=== PATIENT | female | born 1970 | race Caucasian/White ===

== ENCOUNTER 2022-12-05 11:40 | Outpatient (OUT) | payer MEDICARE, MEDICAID, SELFPAY ==
[2022-12-05 12:06] LABS: Basophils Absolute Auto 0.1 10^3/uL (0.0-0.1); Basophils Percent Auto 0.7 % (0.2-2.0); Eosinophils Absolute Auto 0.3 10^3/uL (0.0-0.7); Eosinophils Percent Auto 3.3 % (0.9-7.0); Hematocrit 36.8 % (36.0-48.0); Hemoglobin 11.2 g/dL (12.0-16.0); Immature Granulocytes Abs Auto 0.02 10^3/uL (0.00-0.03); Immature Granulocytes Pct Auto 0.2 % (0.0-0.5); Lymphocytes Absolute Auto 2.8 10^3/uL (1.2-3.8); Lymphocytes Percent Auto 32.6 % (20.5-60.0); Mean Corpuscular HGB Conc 30.4 g/dL (29.9-35.2); Mean Corpuscular Hemoglobin 27.5 pg (26.7-34.0); Mean Corpuscular Volume 90.4 fL (81.0-99.0); Mean Platelet Volume 9.4 fL (9.5-13.5); Monocytes Absolute Auto 0.5 10^3/uL (0.3-0.8); Monocytes Percent Auto 5.3 % (1.7-12.0); Neutrophils Percent Auto 57.9 % (43.0-75.0); Platelet Count 268 10^3/uL (150-450); Red Blood Count 4.07 10^6/uL (4.20-5.40); Red Cell Distribution Width 14.7 % (11.0-15.0); White Blood Count 8.7 10^3/uL (4.0-11.0)
[2022-12-05 13:43] LABS: Alanine Aminotransferase 19 U/L (14-59); Albumin Globulin Ratio 0.8; Albumin Level 3.5 g/dL (3.4-5.0); Alkaline Phosphatase 120 U/L (46-116); Anion Gap 14.8; Aspartate Amino Transferase 16 U/L (15-37); Bilirubin Total 0.3 mg/dL (0.2-1.0); Calcium 9.1 mg/dL (8.5-10.1); Carbon Dioxide 26.5 mmol/L (21.0-32.0); Chloride 102 mmol/L (98-107); Chol HDL Ratio 9.3; Cholesterol 130 mg/dL (<=200); Estimated GFR (African America >60 (>=60); Estimated GFR (Non-African Ame 58 (>=60); Globulin 4.5 g/dL; Glucose 107 mg/dL (74-106); HDL Cholesterol 14 mg/dL (40-60); Potassium 3.3 mmol/L (3.5-5.1); Sodium 140 mmol/L (136-145); Triglycerides 213 mg/dL (<=150); VLDL CHOLESTEROL 42.6 mg/dL
== END 2022-12-05 11:41 | disposition home or self-care (01) ==
LOC: LAB 11:50
PROVIDERS: Visit Provider Nurse Practitioner Acute Care
DX: I10 Essential (primary) hypertension (principal); R06.09 Other forms of dyspnea; E78.2 Mixed hyperlipidemia
CPT/HCPCS: 36415; 80053; 80061; 83880; 85025

== ENCOUNTER 2023-02-15 13:59 | Outpatient (OUT) | payer MEDICARE, SELFPAY ==
--- NOTE | 2023-02-15 14:45 | CA_ITS ---
Patient Name: ESTELA BELL MR#: [id number] : 1970 Exam Date: 02/15/2023 Ordering Doctor: MRS. AMINATA ORTIZ NP ECHOCARDIOGRAM REPORT PROCEDURE: CA ECHO DOPPLER COMPLETE INDICATIONS: Dyspnea, ascending aorta aneurysm, diabetes COMPARISON: None. DESCRIPTION: COMPLETE ECHOCARDIOGRAM Real-time transthoracic echocardiography with 2D, M-mode, spectral and color flow Doppler performed. QUALITY: Technically difficult due to patients condition. 67 , 220#, BSA 2.11 m2 LEFT VENTRICLE: Normal chamber size. Normal left ventricular wall thickness. LV EF: Global left ventricular systolic function is normal; visually estimated ejection fraction is 55 to 60%. Unable to assess regional wall motion abnormalities with accuracy. Consider contrast of the for better delineation of endocardial borders. DIASTOLIC: Normal diastolic function. ATRIAL SEPTUM: Inadequately seen. LEFT ATRIUM: Normal chamber size. RIGHT ATRIUM: Normal chamber size. RIGHT VENTRICLE: Poorly seen. Normal chamber size. Right ventricular systolic function appears reduced. TRICUSPID VALVE: Normal mobility and thickness. No stenosis with trivial regurgitation. No evidence of pulmonary hypertension. RVSP 23 mmHg MITRAL VALVE: Normal mobility and thickness. No evidence of mitral valve stenosis. There is no mitral annular calcification. Trivial mitral regurgitation. AORTIC VALVE: Normal trileaflet appearance. No visible sclerosis. Normal leaflet mobility. No evidence of aortic valve stenosis. No aortic regurgitation. AORTIC ROOT: Ascending aorta is moderately dilated (4.4 cm), unchanged from prior echocardiogram performed 05/27/2020 PULMONIC VALVE: Normal thickness and mobility. No stenosis. No regurgitation. PERICARDIUM: No evidence of pericardial effusion. IVC: Collapses with inspirations. IVC is normal in size. CONCLUSION: 1. Global left ventricular systolic function is normal; visually estimated ejection fraction is 55 to 60% 2. The right ventricle is poorly seen; appears normal in size with reduced systolic function 3. Normal diastolic function 4. Valves are poorly seen; no significant valvular abnormalities 5. The ascending aorta is moderately dilated measuring 4.4 cm Adult Echocardiography Procedure Report Left Ventricle LVEDD (3.7 - 5.6 cm): 3.70 cm LVESD (2.2 - 4.0 cm): 2.58 cm LVIVS thickness (0.6 - 1.2 cm): 0.87 cm LVPW thickness (0.5 - 1.0 cm): 1.00 cm e': 0.12 m/s E - e': 7.24 LVOT Max Gradient: 3.81 mm[Hg] LVOT Area (cm2): 0.98 m/s Peak Velocity (LVOT): 0.98 m/s Mean Velocity (LVOT): 0.64 m/s LVOT Diameter 2.15 cm Left Ventricular Ejection Fraction: Left Atrium LA Volume Index (2D A2C): 18.39 ml/m2 Left Atrium Systolic Dimension: 4.01 cm Mitral Valve MV E to A Ratio: 1.21 MV Max Gradient: MV Mean Gradient: Mitral Valve A-Wave Peak Velocity: 0.70 m/s Mitral Valve E-Wave Peak Velocity: 0.85 m/s Cardiovascular Orifice Area: Right Ventricle RV Internal Diastolic Dimension: Aorta AO Root Diam: 3.09 cm Ascending Ao Diam: 2.79 cm Aortic Valve AoV Area (Peak Gt): 3.23 cm2, 3.23 cm2 AoV Area (VTI): 3.03 cm2, 3.03 cm2 Deceleration Upshur: Pressure Half-Time: Peak Velocity(Antegrade Flow): 1.10 m/s Peak Gradient(Antegrade Flow): 4.84 mm[Hg] Mean Velocity(Antegrade Flow): 0.79 m/s Mean Gradient(Antegrade Flow): 2.77 mm[Hg] Velocity Time Integral: 25.35 cm Tricuspid Valve Peak Velocity (Regurgitant Flow): 2.22 m/s, 2.59 m/s Peak Velocity: Pulmonic Valve Mean Gradient: Mean Velocity: Peak Velocity: 0.90 m/s Peak Gradient: 3.41 mm[Hg], 3.05 mm[Hg] Right Atrium Right Atrium Systolic Pressure: Dictated by: Crispin Melchor M.D. on 02/17/2023 at 10:20 Approved by: Crispin Melchor M.D. on 02/17/2023 at 10:25
== END 2023-02-15 14:00 | disposition home or self-care (01) ==
LOC: CARD 13:59
PROVIDERS: Visit Provider Nurse Practitioner Acute Care
DX: I71.21 Aneurysm of the ascending aorta, without rupture (principal); R06.09 Other forms of dyspnea
CPT/HCPCS: 93306

== ENCOUNTER 2024-10-30 09:54 | Outpatient (OUT) | payer MEDICARE, SELFPAY ==
--- OUTSIDE RECORDS SUMMARY | 2018-04-18 05:07 | XMS_ITS | Continuity of Care Document ---
Author Organization [facility] Address [address] [place] [address] Phone Care Team Providers Care Civil Drafter Name Role Phone Francisco Pineda DMD Unavailable Unav ailable Allergies, Adverse Reactions, Alerts Substance Reaction Status Criticality Penicillins Active No Information CEPHALEXIN MONOHYDRATE Active No In formation heparin Active No Information Medications Medication Instructions Dosage Effective Dates (start - stop) Status Comments Arnuity Ellipta 50 mcg/actuation powder for inhalation - Active Keppra XR 500 mg tablet,extended release take 2 tablet by oral route every day 1000 MG - Active Effexor XR 37.5 mg capsule,extended release take 1 capsule by oral route every day with food 37.5 MG - Active Lyrica 150 mg capsule take 1 capsule by oral route 2 times every day 150 MG - Active Eliquis 2.5 mg tablet take 1 tablet by oral route 2 times every day 2.5 MG - Active buspirone 10 mg tablet take 1 tablet by oral route 2 times every day 10 MG - Active aspirin 81 mg tablet,delayed release take 1 tablet by oral route every day 81 MG - Active Lipitor 40 mg tablet take 1 tablet by or al route every day 40 MG - Active metoprolol tartrate 25 mg tablet take 1 tablet by oral route 2 times every day 25 MG - Active metformin ER 500 mg tablet,extended release 24 hr take 2 tablet by oral route every day with the evening meal 1000 MG - Active Procedures Procedure Date Panoramic Film Oral Hygiene Instruction Comp Oral Eval New/estab Patient 2017 Initial Oral Exam Advance Directives Directive Yes / No Effective Date File Name No Information Encounters Encounter Description Practice Location Reason(s) For Visit Diagnoses Date Provider Providers Copied on Encounter [facility], [address] [place] [address], [id number], [place] tel:[phone] Dental Clinic No Information 9 Miriam DMD [place]. [address] [place], [address], [place]. tel:[phone] [facility], [address], [place], [id number], [place] tel:[phone] Dental Clinic dental new (chief complaint) Encounter for screening for dental disorders 8 Miriam DMD Sheel[place]. [address] [place] [address], [address], [place]. tel:[phone] Family History Family Member Type Diagnosis Age At Onset Father Problem (finding) hypertension Father Problem (finding) Alive and well Mother Problem (finding) Father Problem (finding) Diabetes mellitus Father Problem (finding) cholesterol Payers Payer name Insurance type Covered constitution party ID Orquidea schmidt(s) Janes [facility] 09 [id number] Social History Type Description Quantity Date Captured Comments Sex Female Smoking Status No Information Sexual Orientation Straight or heterosexual Oct Gender Identity Female Chief Complaint And Reason For Visit No Information Reason For Referral Reason For Referral No Information History Of Present Illness Encounter Date Complaint History Of Prese nt Illness dental new dental new estab [facility] care Functional Status Date Functional Assessmen t No Information Instructions Date Instruction Additional Infor mation No Information Assessments Type Assessment Date No Information Patient Care Teams Name Effective Dates (start - stop) Status Members No Information
--- NOTE | 2024-10-30 09:56 | CA_ITS ---
Patient Name: ESTELA BELL MR#: [id number] : 1970 Exam Date: 10/30/2024 Ordering Doctor: LAYNE SANTANA CNP ECHOCARDIOGRAM REPORT PROCEDURE: CA ECHO DOPPLER COMPLETE INDICATIONS: Aneurysm of ascending aorta COMPARISON: None. DESCRIPTION: COMPLETE ECHOCARDIOGRAM Real-time transthoracic echocardiography with 2D, M-mode, spectral and color flow Doppler performed. QUALITY: Technical quality was good. LEFT VENTRICLE: Normal chamber size. Normal left ventricular wall thickness. LV EF: Global left ventricular systolic function is normal. Calculated left ventricular ejection fraction is 65%. No significant wall motion abnormalities. DIASTOLIC: Normal diastolic function. ATRIAL SEPTUM: Inadequately seen. LEFT ATRIUM: Normal chamber size. RIGHT ATRIUM: Mild dilatation. RIGHT VENTRICLE: Normal chamber size. Normal right ventricular systolic function. TRICUSPID VALVE: Normal mobility and thickness. No stenosis with mild regurgitation. No evidence of pulmonary hypertension. RVSP 33mmHg. MITRAL VALVE: Normal mobility and thickness. No evidence of mitral valve stenosis. Mild mitral annular calcification. Trivial mitral regurgitation. AORTIC VALVE: Normal trileaflet appearance. No visible sclerosis. Normal leaflet mobility. No evidence of aortic valve stenosis. No aortic regurgitation. AORTIC ROOT: Normal diameter and appearance. Measuring 3. 5cm.The ascending aorta is dilated measuring 5.0 x 4.3 cm in short axis and 4.4 cm in long axis. PULMONIC VALVE: Normal thickness and mobility. No stenosis. Trivial regurgitation. PERICARDIUM: No evidence of pericardial effusion. IVC: Collapses with inspiration. Mild dilatation measuring 2.2cm CONCLUSION: 1. Global left ventricular systolic function is normal; visually estimated ejection fraction is 55 to 60% 2. Normal right ventricular size and systolic function 3. Normal diastolic function 4. Mild right atrial dilatation 5. Mild tricuspid regurgitation 6. The ascending aorta is mild to moderately dilated measuring 5.0 x 4.3 cm in short axis and 4.4 cm in long axis; recommend additional imaging such as CTA or MR a for further evaluation Adult Echocardiography Procedure Report Left Ventricle LVEDD (3.7 - 5.6 cm): 4.62 cm LVESD (2.2 - 4.0 cm): 2.82 cm LVIVS thickness (0.6 - 1.2 cm): 1.02 cm LVPW thickness (0.5 - 1.0 cm): 0.93 cm e': 0.10 m/s E - e': 10.90 LVOT Max Gradient: 4.71 mm[Hg] LVOT Area (cm2): 1.09 m/s Peak Velocity (LVOT): 1.09 m/s Mean Velocity (LVOT): 0.68 m/s LVOT Diameter 2.01 cm Left Ventricular Ejection Fraction: 65.39 % Left Atrium LA Volume Index (2D A2C): 26.84 ml/m2 Left Atrium Systolic Dimension: 3.42 cm Mitral Valve MV E to A Ratio: 1.61, 1.56 Mitral Valve A-Wave Peak Velocity: 0.72 m/s Mitral Valve E-Wave Peak Velocity: 1.14 m/s Right Ventricle RV Internal Diastolic Dimension: 3.26 cm Aorta AO Root Diam: 3.33 cm Ascending Ao Diam: 3.99 cm Aortic Valve AoV Area (Peak Gt): 2.86 cm2, 2.86 cm2 AoV Area (VTI): 2.88 cm2, 2.88 cm2 Peak Velocity(Antegrade Flow): 1.21 m/s Peak Gradient(Antegrade Flow): 5.85 mm[Hg] Mean Velocity(Antegrade Flow): 0.76 m/s Mean Gradient(Antegrade Flow): 2.81 mm[Hg] Velocity Time Integral: 29.81 cm Tricuspid Valve Peak Velocity (Regurgitant Flow): 2.11 m/s, 2.32 m/s, 2.51 m/s Pulmonic Valve Mean Gradient: 1.48 mm[Hg], 1.59 mm[Hg] Mean Velocity: 0.57 m/s, 0.58 m/s Peak Velocity: 0.86 m/s Peak Gradient: 2.81 mm[Hg], 3.09 mm[Hg] Right Atrium Right Atrium Systolic Pressure: 40.50 ml, 40.50 ml Dictated by: Crispin Melchor M.D. on 10/30/2024 at 11:47 Approved by: Crispin Melchor M.D. on 10/30/2024 at 11:51
--- OUTSIDE RECORDS SUMMARY | 2024-10-30 09:56 | XMS_ITS | Clinical Summary ---
Author Organization [facility] Address [address] [place] [address] Phone Care Team Providers Care Maintenance Aide Name Role Phone Unavailable Primary Care Provider Unavailabl e Social History Tobacco Use Types Packs/Day Years Used Date Smoking Tobacco: Never Assessed Comments Unknown Sex and Gender Information Value Date Recorded Sex Assigned at Not on file Legal Sex Female 5:24 PM EST Gender Identity Not on file Sexual Orientation Not on file Plan of Treatment Not on file
--- OUTSIDE RECORDS SUMMARY | 2024-10-30 09:57 | XMS_ITS | Encounter Summary ---
Author Organization [employer] [facility] [employer] Address [id number] [address] [place] [address] Care Team Providers Care Electrotyper Helper Name Role Phone Lewis Adamson MD Primary Care Provider [phone] Reason for Visit * Reason Comments Med Refill Encounter Details Date Type Department Care Team (Late st Contact Info) Description 04/01/2019 Refill [facility] [address] [place] [address] [place] [address] Carol Wetzel, RN [employer] P[employer]CHER [address] [place], [place] [id number] Mixed hyperlipidemia; Neuropathy Social History Tobacco Use Types Packs/Day Years Used Date Smoking Tobacco: Never Smokeless Tobacco: Never Alcohol Use Standard Drinks/Week Comments No 0 (1 standard drink = 0.6 oz pur e alcohol) PHQ-2 Answer Date Recorded PHQ-2 Score 14 11/27/2018 Childcare Answer Date Recorded Childcare Unknown 07/30/2018 Employment Answer Date Recorded Employment Unknown 07/30/2018 Comments No Sex and Gender Information Value Date Recorded Sex Assigned at Not on file Legal Sex Female 11:51 AM EDT Gender Identity Not on file Sexual Orientation Not on file Occupation Industry Job Start Date Job End Date disability Not on file Not on file Not on file documented as of this encounter Plan of Treatment Upcoming Encounters Date Type Department Care Team (Late st Contact Info) Description 12/11/2024 9:45 AM EDT Office Visit [facility]/Lewis Adamson MD [address] [address] Lewis Adamson MD [address] [address] documented as of this encounter Visit Diagnoses Diagnosis Mixed hyperlipidemia Neuropathy Mononeuritis of unspecified site documented in this encounter Additional Health Concerns Infection Onset Date Last Indicated Resolved Time MRSA Comment:Abdomen sterile field culture 09/01/11 Infection converted via [employer]zuna from [employer] system information 09/06/2011 09/06/201109/28 11:19 PM EDT Assessment Noted Time PHQ-9 Depression Total Score: 14 019 11:00 AM EDT A Body Mass Index follow-up plan has been documented for the patient 11/28/2017 11:01 AM EDT documented as of this encounter Care Teams Electrotyper Helper Relationship Specialty Start Date End Date Lewis Adamson MD [address] [address] PCP - General Internal Medicine 01/04/22 documented as of this encounter
--- OUTSIDE RECORDS SUMMARY | 2024-10-30 09:57 | XMS_ITS | Encounter Summary ---
Author Organization [employer] [facility] Address [id number] [address] [place] [address] Care Team Providers Care Passementerie Worker Name Role Phone Lewis Adamson MD Primary Care Provider [phone] Reason for Visit * Reason Comments Med Refill Encounter Details Date Type Department Care Team (Late st Contact Info) Description 02/04/2020 Refill [facility]/Lewis Adamson MD [address] [place] [phone] Usman Hannon, PA-C [address] [place] [address] Allergic rhinitis Social History Tobacco Use Types Packs/Day Years [...] [facility]/Lewis Adamson MD [address] [address] Lewis Adamson MD [address] [address] documented as of this encounter Visit Diagnoses Diagnosis Allergic rhinitis documented in this encounter Additional Health Concerns Infection Onset Date Last Indicated Resolved Time MRSA Comment:Abdomen sterile field culture 09/01/11 Infection converted via [employer] utility from [employer] system information 09/06/2011 09/06/201109/28 11:19 PM EDT Assessment Noted Time PHQ-9 Depression Total Score: 14 019 11:00 AM EDT A Body Mass Index follow-up plan has been documented for the patient 11/28/2017 11:01 AM EDT documented as of this encounter Care Teams Passementerie Worker Relationship Specialty Start Date End Date Lewis Adamson MD [address] [address] PCP - General Internal Medicine 01/04/22 documented as of this encounter
--- OUTSIDE RECORDS SUMMARY | 2024-10-30 09:57 | XMS_ITS | Encounter Summary ---
Author Organization [facility] Address [address] [place] [address] Care Team Providers Care Manual Qa Tester Name Role Phone ParvezUsman Virginia MCKEON Primary Care Provider [phone] Christy Moreland MD Unavailable [phone] Feng Jimenez DO Unavailable [phone] Laxmi Gunter MD Unavailable Source Comments In the event this information is protected by the Federal Confidentiality of Alcohol and Drug AbusePatient Records regulations: The Federal rules restrict any use of the information to criminally investigate or prosecute any alcohol or drug abuse patient.[facility] Encounter Details Date Type Department Care Team (Late st Contact Info) Description 04/25/2024 Patient [facility] -[address] [place] [phone] Gianna Badillo RPh Medication refill(s) Past Due Social History Tobacco Use Types Packs/Day Years Used Date Smoking Tobacco: Never Smokeless Tobacco: Never Comments:Boyfriend smokes Alcohol Use Standard Drinks/Week Comments No 0 (1 standard drink = 0.6 oz pur e alcohol) PHQ-2 Answer Date Recorded PHQ-2 score 6 11/15/2020 Area Deprivation Index Answer Date Rehan rded National Score (1-100), lower number is lower ri sk Not on file 02/02/2020 State Score (1-10), lower number is lower risk N ot on file 02/02/2020 Data from: https://www.neighborhoodatlas.medicine.[facility]/. Last address used for calculation Not on file 02/02/2020 Comments No Sex and Gender Information Value Date Recorded Sex Assigned at Female 02/02/2020 10:35 PM EST Legal Sex Female 8:26 AM EST Gender Identity Female 02/02/2020 10:35 PM EST Sexual Orientation Straight 02/02/2020 10 :35 PM EST documented as of this encounter Functional Status * Are you deaf or do you have serious difficulty hearing? Answer Date of Assessment Author No 11/08/2013 8:56 AM Luis Amador * Are you blind or do you have serious difficulty seeing, even when wearing glasses? Answer Date of Assessment Author Yes 11/08/2013 8:56 AM Luis Amador iscorey * Do you have serious difficulty walking or climbing stairs? Answer Date of Assessment Author Yes 11/08/2013 8:56 AM Luis Amador * Do you have difficulty dressing or bathing? Answer Date of Assessment Author No 11/08/2013 8:56 AM Luis Amador ise * Because of a physical, mental, or emotional condition, do you have difficulty doing errands alone such as visiting a doctor's office or shopping? Answer Date of Assessment Author No 11/08/2013 8:56 AM Luis Amador documented as of this encounter Mental Status * Because of a physical, mental, or emotional condition, do you have serious difficulty concentrating, remembering, or making decisions? Answer Entry Date Author No 11/08/2013 8:56 AM Luis Amador documented in this encounter Plan of Treatment Not on file documented as of this encounter Visit Diagnoses Not on filedocumented in this encounter Care Teams Manual Qa Tester Relationship Specialty Start Date End Date Usman Hannon PA-C PCP - General Internal Medicine 02/06/20 Christy Moreland MD [address] [place] [address] Cardiology 02/06/20 Feng Jimenez DO [address] [place] [address] Internal Medicine 02/06/20 Laxmi Gunter MD [address] [place] [address] Referring Gastroenterology 02/04/23 documented as of this encounter
--- OUTSIDE RECORDS SUMMARY | 2024-10-30 09:57 | XMS_ITS | Encounter Summary ---
Author Organization [facility] Address [address] [place] [address] Care Team Providers Care Line Builder Name Role Phone Usman Hannon PA-C Primary Care Provider [phone] Christy Moreland MD Unavailable [phone] Feng Jimenez DO Unavailable [phone] Laxmi Gunter MD Unavailable Source Comments In the event this information is protected by the Federal Confidentiality of Alcohol and Drug AbusePatient Records regulations: The Federal rules restrict any use of the information to criminally investigate or prosecute any alcohol or drug abuse patient.[facility] Encounter Details Date Type Department Care Team (Late st Contact Info) Description 03/04/2020 Patient Msg Pre Anesthesia [address] [place] [address] Piyush Beltrán PA-C [address] [place] [address] Pre op instructions Social History Tobacco Use Types Packs/Day Years Used Date Smoking Tobacco: Never Smokeless Tobacco: Never Comments:Boyfriend smokes Alcohol Use Standard Drinks/Week Comments No 0 (1 standard drink = 0.6 oz pur e alcohol) PHQ-2 Answer Date Recorded PHQ-2 score 0 12/31/2019 Area Deprivation Index Answer Date Rehan rded National Score (1-100), lower number is lower ri sk Not on file 02/02/2020 State Score (1-10), lower number is lower risk N ot on file 02/02/2020 Data from: https://www.neighborhoodatlas.medicine.[facility]/. Last address used for calculation Not on file 02/02/2020 Comments No Sex and Gender Information Value Date Recorded Sex Assigned at Female 02/02/2020 10:35 PM EST Legal Sex Female 8:26 AM EST Gender Identity Female 02/02/2020 10:35 PM EST Sexual Orientation Straight 02/02/2020 10 :35 PM EST COVID-19 Exposure Response Date Recorded In the last month, have you been in contact with someone who was confirmed or suspected to have Coronavirus / COVID-19? No / Unsure 02/17/2020 8:19 AM EST documented as of this encounter Functional Status * Are you deaf or do you have serious difficulty hearing? Answer Date of Assessment Author No 11/08/2013 8:56 AM Luis Amador * Are you blind or do you have serious difficulty seeing, even when wearing glasses? Answer Date of Assessment Author Yes 11/08/2013 8:56 AM Luis Amador * Do you have serious difficulty walking or climbing stairs? Answer Date of Assessment Author Yes 11/08/2013 8:56 AM Luis Amador * Do you have difficulty dressing or bathing? Answer Date of Assessment Author No 11/08/2013 8:56 AM Luis Amador * Because of a physical, mental, or [...] Diagnoses Not on filedocumented in this encounter Additional Health Concerns Infection Onset Date Last Indicated Resolved Time COVID-19 Confirmed 02/11/2020 02/11/2020 1 8:53 PM EST documented as of this encounter Care Teams Line Builder Relationship Specialty Start Date End Date Usman Hannon PA-C PCP - General Internal Medicine 02/06/20 Christy Moreland MD [address] [place] [address] Cardiology 02/06/20 Feng Jimenez DO [address] [place] [address] Internal Medicine 02/06/20 Laxmi Gunter MD [address] [place] [address] Referring Gastroenterology 02/04/23 documented as of this encounter
--- OUTSIDE RECORDS SUMMARY | 2024-10-30 09:57 | XMS_ITS | Encounter Summary ---
Author Organization [email or web address] s tem Address [id number] [address] [place] [address] Care Team Providers Care Bankruptcy Law Specialist Name Role Phone Lewis Adamson MD Primary Care Provider [phone] Encounter Details Date Type Department Care Team (Late st Contact Info) Description 04/17/2023 Orders Only [facility] Internal Medicine/Lewis Adamson MD [address] [place] [address] External, Scanning Provider Social History Tobacco Use Types Packs/Day Years Used Date Smoking Tobacco: Never Smokeless Tobacco: Never Alcohol Use Standard Drinks/Week Comments No 0 (1 standard drink = 0.6 oz pur e alcohol) Social Connection and Isolation Panel [NHANES] A nswer Date Recorded In a typical week, how many times do you talk on the phone with family, friends, or neighbors? Three times a week 04/07/2022 How often do you get togethe r with friends or relatives? Patient declined 04/07/2022 How often do you attend chur ch or confucianist services? Patient declined 04/07/2022 Do you belong to any clubs o r organizations such as yarsani groups, unions, fraternal or athletic groups, or school groups? No 04/07/2022 How often do you attend meet ings of the clubs or organizations you belong to? Patient declined 04/07/2022 Are you , , di vorced, , never , or living with a partner? Patient declined 04/07/2022 AUDIT-C Answer Date Recorded Q1: How often do you have a drink containing alcohol? Patient declined 04/07/2022 Q2: How many drinks containi ng alcohol do you have on a typical day when you are drinking? Patient does not drink Q3: How often do you have si x or more drinks on one occasion? Never 04/07/2022 Overall Financial Resource Strain (CARDIA) Answe r Date Recorded How hard is it for you to pa y for the very basics like food, housing, medical care, and heating? Somewhat hard 04/07/2022 PHQ-2 Answer Date Recorded Total Score 0 12/21/2022 [facility]at ional [facility] - Occupational Stress Questionnaire Answer Date Recorded Do you feel stress - tense, restless, nervous, or anxious, or unable to sleep at night because your mind is troubled all the time - these days? To some extent 04/07/2022 Exercise Vital Sign Answer Date Recorde d On average, how many days pe r week do you engage in moderate to strenuous exercise (like a brisk walk)? 7 days 04/07/2022 On average, how many minutes do you engage in exercise at this level? 60 min 04/07/2022 PRAPARE - Transportation Answer Date Re corded In the past 12 months, has l ack of transportation kept you from medical appointments or from getting medications? No 10/2022 In the past 12 months, has l ack of transportation kept you from meetings, work, or from getting things needed for daily living? No 04/07/2022 Housing Instability Answer Date Recorde d Are you worried or concerned that in the next two months you may not have stable housing that you own, rent or stay in as a part of a household? No 04/07/2022 Childcare Answer Date Recorded Do problems getting child ca re make it difficult for you to work or study? No 04/07/2022 Employment Answer Date Recorded Do you need help finding a [facility] career center and/or a training program? No 04/07/2022 Hunger Screening Answer Date Recorded Within the past 12 months we worried whether our food would run out before we got money to buy more. Never True 12/21/2022 Within the past 12 months th e food we bought just didn't last and we didn't have money to get more. Never True 12/21/2022 Purpose - Life Answer Date Recorded I have a purpose and direction in my life. Somew hat Agree 04/07/2022 Education Answer Date Recorded What is the highest level of school you have completed or the highest degree you have received? GED or equivalent 10/2022 Comments No Sex and Gender Information Value [...] [facility]/Lewis Adamson MD [address] [address] Lewis Adamson MD [address] [address] documented as of this encounter Procedures Procedure Name Priority Date/Time Associated Diagnosis Comments XR KNEE RT 3 VWS Routine 10/29/2022 12:4 3 PM EDT documented in this encounter Results * X-ray knee right 3 views (10/29/2022 12:43 PM EDT) Anatomical Region Laterality Modality Lower Extremities, MSK, Knee Right Com puted Radiography us Scanning Provider External IMG DIAGNOSTIC IMAGIN G ORDERABLES Final Result documented in this encounter Visit Diagnoses Not on filedocumented in this encounter Additional Health Concerns Assessment Noted Time PHQ-9 Depression Total Score: 0 12/22/19 23 10:31 AM EDT A Body Mass Index follow-up plan has been documented for the patient 12/21/2022 10:59 AM EDT documented as of this encounter Care Teams Bankruptcy Law Specialist Relationship Specialty Start Date End Date Lewis Adamson MD [address] [address] PCP - General Internal Medicine 01/04/22 documented as of this encounter
--- OUTSIDE RECORDS SUMMARY | 2024-10-30 09:57 | XMS_ITS | Encounter Summary ---
Author Organization [employer] [facility] tem Address [id number] [address] [place] [address] Care Team Providers Care Ems Driver Name Role Phone Lewis Adamson MD Primary Care Provider [phone] Reason for Visit * Reason Onset Date Comments Med Refill 12/25/2018 Encounter Details Date Type Department Care Team (Late st Contact Info) Description 12/25/2018 Refill [facility] [address] [place] [phone] Latisha Galeano, LUIS FERNANDO Social History Tobacco Use Types Packs/Day Years [...] [facility]/Lewis Adamson MD [address] [address] Lewis Adamson MD [address] [id number] documented as of this encounter Visit Diagnoses Not on filedocumented in this encounter Additional Health Concerns Infection Onset Date Last Indicated Resolved Time MRSA Comment:Abdomen sterile field culture 09/01/11 Infection converted via [employer] from [employer] system information 09/06/2011 09/06/201109/28 11:19 PM EDT Assessment Noted Time PHQ-9 Depression Total Score: 14 019 11:00 AM EDT A Body Mass Index follow-up plan has been documented for the patient 11/28/2017 11:01 AM EDT documented as of this encounter Care Teams Ems Driver Relationship Specialty Start Date End Date Lewis Adamson MD [address] [address] PCP - General Internal Medicine 01/04/22 documented as of this encounter
--- OUTSIDE RECORDS SUMMARY | 2024-10-30 09:57 | XMS_ITS | Encounter Summary ---
Author Organization [employer] s tem Address [id number] [address] [place] [address] Care Team Providers Care Automotive Airconditioning Mechanic Name Role Phone Lewis Adamson MD Primary Care Provider [phone] Encounter Details Date Type Department Care Team (Late st Contact Info) Description 2024 Orders Only [facility]/Lewis Adamson MD [address] [place] [address] Ref Prov, [place] [address] Social History Tobacco Use Types Packs/Day Years [...] often do you attend chur ch or taoist services? Patient declined 04/07/2022 Do you belong to any clubs o r organizations such as orthodox groups, unions, fraternal or athletic groups, or [...] like food, housing, medical care, and heating? Patient declined 06/09/2024 PHQ-2 Answer Date Recorded Total Score 16 01/02/2024 [facility] of Occupat ional Health - Occupational Stress [...] from medical appointments or from getting medications? Yes 05/28 In the past 12 months, has l ack of transportation kept you from meetings, work, or from getting things needed for daily living? No 06/09/2024 Housing Instability Answer Date Recorde d Are you worried or concerned that in the next two months you may not have stable housing that you own, rent or stay in as a part of a household? No 06/09/2024 Childcare Answer Date Recorded Do problems getting child ca re make it difficult for you to work or study? No 04/07/2022 Employment Answer Date Recorded Do you need help finding a [facility] career center and/or a training program? No 04/07/2022 Hunger Screening Answer Date Recorded Within the past 12 months we worried whether our food would run out before we got money to buy more. Often True 025 Within the past 12 months th e food we bought just didn't last and we didn't have money to get more. Sometimes True 06/09/2024 Purpose - Life Answer Date Recorded I [...] [facility]/Lewis Adamson MD [address] [address] Lewis Adamson MD [address] [address] documented as of this encounter Procedures Procedure Name Priority Date/Time Associated Diagnosis Comments XR SHOULDER RT MIN 2 VWS Routine 06/18/2024 11:36 AM EDT documented in this encounter Results * X-ray shoulder right minimum 2 views (06/18/2024 11:36 AM EDT) Anatomical Region Laterality Modality MSK, Upper Extremities, Shoulder Right Computed Radiography us Not In System Ref Prov IMG DIAGNOSTIC IMAGING OR DERABLES Final Result documented in this encounter Visit Diagnoses Not on filedocumented in this encounter Additional Health Concerns Assessment Noted Time PHQ-9 Depression Total Score: 16 024 12:56 PM EST A Body Mass Index follow-up plan has been documented for the patient 12/19/2023 11:41 AM EDT documented as of this encounter Care Teams Automotive Airconditioning Mechanic Relationship Specialty Start Date End Date Lewis Adamson MD [address] [place] [address] PCP - General Internal Medicine 01/04/22 documented as of this encounter
--- OUTSIDE RECORDS SUMMARY | 2024-10-30 09:57 | XMS_ITS | Encounter Summary ---
Author Organization [employer] tem Address [id number] [address] [place] [address] Care Team Providers Care Skin Washer Name Role Phone Lewis Adamson MD Primary Care Provider Encounter Details Date Type Department Care Team (Late st Contact Info) Description 02/13/2020 Telephone [facility]/Lewis Adamson MD [address] [place] [phone] Diana Burks RMA Social History Tobacco Use Types Packs/Day Years [...] file Not on file Not on file COVID-19 Exposure Response Date Recorded In the last month, have you been in contact with someone who was confirmed or suspected to have Coronavirus / COVID-19? No / Unsure 02/14/2020 8:59 AM EST documented as of this encounter Miscellaneous Notes * Telephone Encounter - CISCO Martinez - 02/13/2020 11:09 AM EST Pt called and states she had positive covid test 02/07/2020 and was told to quarantine until 02/22/2020. Pt is scheduled for gallbladder surgery 03/16/2020 which is rescheduled from previous date due to covid. Pt states she now has conjunctivitis- states her eye is itchy, matted, wondering if you can send something in or want to do video visit? Diana Burks CISCO 02/13/20 1112 documented in this encounter Plan of Treatment Upcoming Encounters Date Type Department Care Team (Late st Contact Info) Description 12/11/2024 9:45 AM EDT Office Visit [facility]/Lewis Adamson MD [address] [address] Lewis Adamson MD [address] [address] documented as of this encounter Visit Diagnoses Not on filedocumented in this encounter Additional Health Concerns Infection Onset Date Last Indicated Resolved Time MRSA Comment:Abdomen sterile field culture 09/01/11 Infection converted via [employer] from [employer] system information 09/06/2011 09/06/201109/28 11:19 PM EDT Assessment Noted Time PHQ-9 Depression Total Score: 14 019 11:00 AM EDT A Body Mass Index follow-up plan has been documented for the patient 11/28/2017 11:01 AM EDT documented as of this encounter Care Teams Skin Washer Relationship Specialty Start Date End Date Lewis Adamson MD [address] [address] PCP - General Internal Medicine 01/04/22 documented as of this encounter
--- OUTSIDE RECORDS SUMMARY | 2024-10-30 09:57 | XMS_ITS | Encounter Summary ---
Author Organization [facility] Address [address] [place] [address] Care Team Providers Care Cushion Maker Name Role Phone ParvezUsman Virginia MCKEON Primary Care Provider [phone] Christy Moreland MD Unavailable [phone] Feng Jimenez DO Unavailable [phone] Laxmi Gunter MD Unavailable Source Comments In the event this information is protected by the Federal Confidentiality of Alcohol and Drug AbusePatient Records regulations: The Federal rules restrict any use of the information to criminally investigate or prosecute any alcohol or drug abuse patient.[facility] Encounter Details Date Type Department Care Team (Late st Contact Info) Description 10/18/2023 Patient Msg [facility]astroenterology [facility] [address] [place] [address] Oskar Quiles DO [facility] [address] [place], [place] [id number] Appointment Request Social History Tobacco Use Types Packs/Day Years [...] N ot on file 02/02/2020 Data from: [email or web address] Last address used for calculation [...] AM Luis Amador documented in this encounter Miscellaneous Notes * Telephone Encounter - Josefa Finley - 10/24/2023 12:22 PM EDT Left VM for patient with the number to Kevin [facility] to scheduled her GES documented in this encounter Plan of Treatment Not on file documented as of this encounter Visit Diagnoses Not on filedocumented in this encounter Care Teams Cushion Maker Relationship Specialty Start Date End Date Usman Hannon PA-C PCP - General Internal Medicine 02/06/20 Christy Moreland MD [address] [place] [address] Cardiology 02/06/20 Feng Jimenez DO [address] [place] [address] Internal Medicine 02/06/20 Laxmi Gunter MD [address] [place] [address] Referring Gastroenterology 02/04/23 documented as of this encounter
--- OUTSIDE RECORDS SUMMARY | 2024-10-30 09:57 | XMS_ITS | Encounter Summary ---
Author Organization [employer] Address [id number] [address] [place] [address] Care Team Providers Care Photocopy Operator Name Role Phone Lewis Adamson MD Primary Care Provider [phone] Reason for Referral * Consultation (Routine) - Pending Review Specialty Diagnoses / Procedures Referred By Contact Referred To Contact Orthopaedic Surgery / Orthopedic Surgery Diagnoses Chronic right shoulder pain Subchondral cyst Usman Hannon PA-C [address] [place] [address] Phone: tel: fax: [facility] [address] [place] [address] Phone: tel: fax: Referral ID Status Reason Start Date Expiration Date Visits Requested Visits Authorized [id number] Pending Review Specialty Services Required 07/18/2024 07/18/2025 1 1 Encounter Details Date Type Department Care Team (Late st Contact Info) Description 07/18/2024 Telephone [facility]/Lewis Adamson MD [address] [place] [phone] Usman Hannon PA-C [address] [place] [address] Social History Tobacco Use Types Packs/Day Years [...] declined 04/07/2022 How often do you attend [facility] services or denominational services? Patient declined 04/07/2022 Do you belong to any clubs o r organizations such as adventism groups, unions, fraternal or athletic groups, or [...] Answer Date Recorded Total Score 16 01/02/2024 [facility] of Occupat ional Health - Occupational Stress [...] Recorded Do you need help finding a [facility] career center and/or a training program? No [...] on file documented as of this encounter Miscellaneous Notes * Telephone Encounter - Usman Hannon PA-C - 07/18/2024 5:31 PM EDT Please call Naila 06/18/2024 right shoulder x-ray ordered by Dr. Rivero in the emergency room at [facility] was abnormal showing mild right AC joint osteoarthritis with a small cyst. If she would like to follow up with Orthopedic a referral has been placed if her symptoms persist. * Telephone Encounter - Africa Allison - 07/18/2024 5:31 PM EDT Attempted to call patient, mailbox full. documented in this encounter Plan of Treatment Upcoming Encounters Date Type Department Care Team (Late st Contact Info) Description 12/11/2024 9:45 AM EDT Office Visit [facility] Internal Medicine/Lewis Adamson MD [address] [phone] Lewis Adamson MD [address] [phone] Scheduled Referrals Name Type Priority Associated Diagnoses Order Schedule [facility] Outpatient Referral Routine Chronic right shoulder pain Subchondral cyst 1 Occurrences starting 07/18/2024 until 07/18/2025 documented as of this encounter Visit Diagnoses Diagnosis Chronic right shoulder pain- Primary Pain in joint, shoulder region Subchondral cyst Unspecified cyst of bone (localized) documented in this encounter Additional Health Concerns Assessment Noted Time PHQ-9 Depression Total Score: 16 024 12:56 PM EST A Body Mass Index follow-up plan has been documented for the patient 12/19/2023 11:41 AM EDT documented as of this encounter Care Teams Photocopy Operator Relationship Specialty Start Date End Date Lewis Adamson MD [address] [phone] PCP - General Internal Medicine 01/04/22 documented as of this encounter
--- OUTSIDE RECORDS SUMMARY | 2024-10-30 09:57 | XMS_ITS | Encounter Summary ---
Author Organization [employer] tem Address [id number] [address] [place] [address] Care Team Providers Care Senior Drafter Name Role Phone Lewis Adamson MD Primary Care Provider [phone] Reason for Visit * Reason Onset Date Comments Med Refill 06/10/2019 Encounter Details Date Type Department Care Team (Late st Contact Info) Description 06/10/2019 Refill [facility] Internal Medicine/Lewis Adamson MD [address] [place] [phone] Maria Fernanda Flores LPN Type 2 diabetes mellitus with hyperglycemia, without long-term current use of insulin ([facility] Social History Tobacco Use Types Packs/Day Years [...] have Coronavirus / COVID-19? No / Unsure 06/11/2019 1:51 PM EDT documented as of this encounter Miscellaneous Notes * Telephone Encounter - Usman Hannon PA-C - 06/10/2019 8:53 AM EDT Lab Results Component Value Date HGBA1C 6.7 (H) 05/07/2019 documented in this encounter Plan of Treatment Upcoming Encounters Date Type Department Care Team (Late st Contact Info) Description 12/11/2024 9:45 AM EDT Office Visit [facility]/Lewis Adamson MD [address] [address] Lewis Adamson MD [address] [phone] documented as of this encounter Visit Diagnoses Diagnosis Type 2 diabetes mellitus with hyperglycemia, without long-term current use of insulin ([facility]) documented in this encounter Additional Health Concerns Infection Onset Date Last Indicated Resolved Time MRSA Comment:Abdomen sterile field culture 09/01/11 Infection converted via [employer] from [employer] system information 09/06/2011 09/06/201109/28 11:19 PM EDT Assessment Noted Time PHQ-9 Depression Total Score: 14 019 11:00 AM EDT A Body Mass Index follow-up plan has been documented for the patient 11/28/2017 11:01 AM EDT documented as of this encounter Care Teams Senior Drafter Relationship Specialty Start Date End Date Lewis Adamson MD [address] [phone] PCP - General Internal Medicine 01/04/22 documented as of this encounter
--- OUTSIDE RECORDS SUMMARY | 2024-10-30 09:57 | XMS_ITS | Encounter Summary ---
Author Organization [employer] Address [id number] [address] [place] [address] Care Team Providers Care Medical Record Technician Name Role Phone Lewis Adamson MD Primary Care Provider [phone] Encounter Details Date Type Department Care Team (Late st Contact Info) Description 01/30/2023 Orders Only [facility] Internal Medicine/Lewis Adamson MD [address] [place] [address] Ref Prov, [place] [address] Social History Tobacco Use Types Packs/Day Years [...] often do you attend chur ch or oriental orthodox services? Patient declined 04/07/2022 Do you belong to any clubs o r organizations such as quaker groups, unions, fraternal or athletic groups, or [...] Answer Date Recorded Total Score 0 12/21/2022 [facility] of Occupat ional Health - Occupational [...] Recorded Do you need help finding a [facility] career center and/or a training [...] [facility]/Lewis Adamson MD [address] [address] Lewis Adamson MD [address] [phone] documented as of this encounter Procedures Procedure Name Priority Date/Time Associated Diagnosis Comments MR BRAIN W WO CONT Routine 01/30/2023 9:29 AM EST documented in this encounter Results * MR brain with and without contrast (01/30/2023 9:29 AM EST) Anatomical Region Laterality Modality Neuro, Head, Head and Neck, Neuro Covera N/A Magnetic Resonance us Not In System Ref Prov IMG MRI ORDERABLES Final Result documented in this encounter Visit Diagnoses Not on filedocumented in this encounter Additional Health Concerns Assessment Noted Time PHQ-9 Depression Total Score: 0 12/22/19 23 10:31 AM EDT A Body Mass Index follow-up plan has been documented for the patient 12/21/2022 10:59 AM EDT documented as of this encounter Care Teams Medical Record Technician Relationship Specialty Start Date End Date Lewis Adamson MD [address] [address] PCP - General Internal Medicine 01/04/22 documented as of this encounter
--- OUTSIDE RECORDS SUMMARY | 2024-10-30 09:57 | XMS_ITS | Encounter Summary ---
Author Organization [employer] Address [id number] [address] [place] [address] Care Team Providers Care Law Examiner Name Role Phone Lewis Adamson MD Primary Care Provider [phone] Reason for Visit * Reason Comments Med Refill Encounter Details Date Type Department Care Team (Late st Contact Info) Description 09/09/2019 Refill [facility] [address] [place] [address] [place] [address] Carol Wetzel, INDUSTRIAL/ORGANIZATIONAL PSYCHOLOGIST-CENTER SALES AND SERVICE ASSOCIATE [address] [facility] [address] [place] [address] Social History Tobacco Use Types Packs/Day Years [...] encounter Miscellaneous Notes * Telephone Encounter - MICHAELLE Farris - 09/09/2019 9:03 AM EDT Your pt now documented in this encounter Plan of Treatment Upcoming Encounters Date Type Department Care Team (Late st Contact Info) Description 12/11/2024 9:45 AM EDT [facility]/Lewis Adamson MD [address] [phone] Lewis Adamson MD [address] [address] documented as of this encounter Visit Diagnoses Not on filedocumented in this encounter Additional Health Concerns Infection Onset Date Last Indicated Resolved Time MRSA Comment:Abdomen sterile field culture 09/01/11 Infection converted via [employer] from [employer] system information 09/06/2011 09/06/201109/28 11:19 PM EDT Assessment Noted Time PHQ-9 Depression Total Score: 14 019 11:00 AM EDT A Body Mass Index follow-up plan has been documented for the patient 11/28/2017 11:01 AM EDT documented as of this encounter Care Teams Law Examiner Relationship Specialty Start Date End Date Lewis Adamson MD [address] [address] PCP - General Internal Medicine 01/04/22 documented as of this encounter
--- OUTSIDE RECORDS SUMMARY | 2024-10-30 09:57 | XMS_ITS | Encounter Summary ---
Author Organization [facility] Address [address] [place] [address] Care Team Providers Care Laser Beam Cutter Name Role Phone Nguyen Cox CNP Primary Care Provider [phone] Usman Hannon PA-C Primary Care Provider [phone] Christy Moreland MD Unavailable [phone] Feng Jimenez DO Unavailable [phone] Laxmi Gunter MD Unavailable Source Comments In the event this information is protected by the Federal Confidentiality of Alcohol and Drug AbusePatient Records regulations: The Federal rules restrict any use of the information to criminally investigate or prosecute any alcohol or drug abuse patient.[facility] Encounter Details Date Type Department Care Team (Late st Contact Info) Description 01/20/2020 Patient Msg Hematology/Oncology [address] [place] [address] Jose Daniels [address] [facility] [place] [address] Appointment Request (HM) Social History Tobacco Use Types Packs/Day Years Used Date Smoking Tobacco: Never Smokeless Tobacco: Never Alcohol Use Standard Drinks/Week Comments No 0 (1 standard drink = 0.6 oz pur e alcohol) PHQ-2 Answer Date Recorded PHQ-2 score 0 12/31/2019 Comments No Sex and Gender Information Value [...] have Coronavirus / COVID-19? No / Unsure 12/31/2019 10:45 AM EST documented as of this encounter Functional Status * Are you deaf or do you have serious difficulty hearing? Answer Date of Assessment Author No 11/08/2013 8:56 AM Mi * Are you blind or do you [...] documented as of this encounter Care Teams Laser Beam Cutter Relationship Specialty Start Date End Date Nguyen Cox CNP PCP - General Family Medicine 11/15/17 02/05/20 Usman Hannon PA-C PCP - General Internal Medicine 02/06/20 Christy Moreland MD [address] [place] [address] Cardiology 02/06/20 Feng Jimenez DO [address] [place] [address] Internal Medicine 02/06/20 Laxmi Gunter MD [address] [place] [address] Referring Gastroenterology 02/04/23 documented as of this encounter
--- OUTSIDE RECORDS SUMMARY | 2024-10-30 09:57 | XMS_ITS | Encounter Summary ---
Author Organization [employer] Address [id number] [address] [place] [address] Care Team Providers Care Press Cutter Name Role Phone Lewis Adamson MD Primary Care Provider Reason for Visit * Reason Comments Med Refill Encounter Details Date Type Department Care Team (Late st Contact Info) Description 01/01/2023 Refill [facility] Internal Medicine/Lewis Adamson MD [address] [place] [phone] Usman Hannon, PA-C [address] [place] [address] Social History Tobacco Use Types Packs/Day Years [...] declined 04/07/2022 How often do you attend [facility] or zoroastrianism services? Patient declined 04/07/2022 Do you belong to any clubs o r organizations such as mandaen groups, unions, fraternal or athletic groups, or [...] Answer Date Recorded Total Score 0 12/21/2022 [facility] of Occupat ional Health - Occupational Stress [...] Recorded Do you need help finding a [facility] career center and/or a training program? [...] Telephone Encounter - Usman Hannon PA-C - 01/01/2023 9:54 AM EST duplicate Usman Hannon PA-C 01/02/23 1140 documented in this encounter Plan of Treatment Upcoming Encounters Date Type Department Care Team (Late st Contact Info) Description 12/11/2024 9:45 AM EDT Office Visit [facility] Internal Medicine/Lewis Adamson MD [address] [phone] Lewis Adamson MD [address] [address] documented as of this encounter Visit Diagnoses Not on filedocumented in this encounter Additional Health Concerns Assessment Noted Time PHQ-9 Depression Total Score: 0 12/22/19 10:31 AM EDT A Body Mass Index follow-up plan has been documented for the patient 12/21/2022 10:59 AM EDT documented as of this encounter Care Teams Press Cutter Relationship Specialty Start Date End Date Lewis Adamson MD [address] [facility] [address] [place] [address] PCP - General Internal Medicine 01/04/22 documented as of this encounter
--- OUTSIDE RECORDS SUMMARY | 2024-10-30 09:57 | XMS_ITS | Encounter Summary ---
Author Organization [employer] Address [id number] [address] [place] [address] Care Team Providers Care Transmission Line Engineer Name Role Phone Lewis Adamson MD Primary Care Provider [phone] Encounter Details Date Type Department Care Team (Late st Contact Info) Description 02/05/2024 Refill [facility] Internal Medicine/Lewis Adamson MD [address] [place] [phone] Usman Hannon, LINDA [address] [place] [address] Social History Tobacco Use Types Packs/Day Years [...] 04/07/2022 How often do you attend chur or rastafari services? Patient declined 04/07/2022 Do you belong to any clubs o r organizations such as moravian groups, unions, fraternal or athletic groups, or [...] like food, housing, medical care, and heating? Not hard at all 06/28/2023 PHQ-2 Answer Date Recorded Total Score 16 01/02/2024 [facility] of Occupat ional Health - Occupational Stress [...] medical appointments or from getting medications? No 02/2023 In the past 12 months, has l ack of transportation kept you from meetings, work, or from getting things needed for daily living? No 06/28/2023 Housing Instability Answer Date Recorde d Are you worried or concerned that in the next two months you may not have stable housing that you own, rent or stay in as a part of a household? No 06/28/2023 Childcare Answer Date Recorded Do problems getting child ca re make it difficult for you to work or study? No 04/07/2022 Employment Answer Date Recorded Do you need help finding a l ocal career center and/or a training program? No 04/07/2022 Hunger Screening Answer Date Recorded Within the past 12 months we worried whether our food would run out before we got money to buy more. Never True 12/19/2023 Within the past 12 months th e food we bought just didn't last and we didn't have money to get more. Never True 12/19/2023 Purpose - Life Answer Date Recorded I [...] encounter Miscellaneous Notes * Telephone Encounter - Africa Allison - 02/05/2024 7:38 AM EST Well I have a situation where my glyburide? Is no longer all covered with insurance I just can???t afford the co pay now so where does that leave us at what do I need to do to keep diabetes under control * Telephone Encounter - Usman Hannon PA-C - 02/05/2024 7:38 AM EST Did insurance offer other options? Do they cover amaryl? documented in this encounter Plan of Treatment Upcoming Encounters Date Type Department Care Team (Late st Contact Info) Description 12/11/2024 9:45 AM EDT Office Visit [facility] Internal Medicine/Lewis Adamson MD [address] [phone] Lewis Adamson MD [address] [address] documented as of this encounter Visit Diagnoses Not on filedocumented in this encounter Additional Health Concerns Assessment Noted Time PHQ-9 Depression Total Score: 16 024 12:56 PM EST A Body Mass Index follow-up plan has been documented for the patient 12/19/2023 11:41 AM EDT documented as of this encounter Care Teams Transmission Line Engineer Relationship Specialty Start Date End Date Lewis Adamson MD [address] [place] [address] PCP - General Internal Medicine 01/04/22 documented as of this encounter
--- OUTSIDE RECORDS SUMMARY | 2024-10-30 09:57 | XMS_ITS | Encounter Summary ---
Author Organization [facility] Address [id number] [address] [place] [address] Care Team Providers Care Animal Bounty Hunter Name Role Phone Lewis Adamson MD Primary Care Provider [phone] Encounter Details Date Type Department Care Team (Late st Contact Info) Description 02/23/2023 Telephone [facility] Internal Medicine/Lewis Adamson MD [address] [place] [phone] Usman Hannon, SANDOVALC [address] [place] [address] Social History Tobacco Use Types Packs/Day Years [...] declined 04/07/2022 How often do you attend [facility] or mandaen services? Patient declined 04/07/2022 Do you belong to any clubs o r organizations such as oriental orthodox groups, unions, fraternal or athletic groups, [...] Date Recorded Total Score 0 12/21/2022 [facility] of Occupat ional [facility] - Occupational Stress Questionnaire Answer Date Recorded [...] Recorded Do you need help finding a [facility] career center and/or a training [...] * Telephone Encounter - Africa Allison - 02/23/2023 9:23 AM EST Patient called in this morning for an appt for sinus symptoms and dizziness, we scheduled her an appt for this morning and she called back requesting for it to be virtual. I let her know she will need to be seen in the office so she can be tested for covid/flu and Usman will want to listen to her lungs and check her ears, she proceeded to get very upset and tell me she is not coming in to cancel the appt because she is not getting tested for anything. documented in this encounter Plan of Treatment Upcoming Encounters Date Type Department Care Team (Late st Contact Info) Description 12/11/2024 9:45 AM EDT Office Visit [facility] Internal Medicine/Lewis Adamson MD [address] [phone] Lewis Adamson MD [address] [phone] documented as of this encounter Visit Diagnoses Not on filedocumented in this encounter Additional Health Concerns Assessment Noted Time PHQ-9 Depression Total Score: 0 12/22/19 10:31 AM EDT A Body Mass Index follow-up plan has been documented for the patient 12/21/2022 10:59 AM EDT documented as of this encounter Care Teams Animal Bounty Hunter Relationship Specialty Start Date End Date Lewis Adamson MD [address] [place] [address] PCP - General Internal Medicine 01/04/22 documented as of this encounter
--- OUTSIDE RECORDS SUMMARY | 2024-10-30 09:57 | XMS_ITS | Encounter Summary ---
Author Organization [facility] Address [address] [place] [address] Care Team Providers Care Burial Vault Setter Name Role Phone ParvezUsman Virginia MCKEON Primary Care Provider [phone] Christy Moreland MD Unavailable [phone] Feng Jimenez DO Unavailable [phone] Laxmi Gunter MD Unavailable Source Comments In the event this information is protected by the Federal Confidentiality of Alcohol and Drug AbusePatient Records regulations: The Federal rules restrict any use of the information to criminally investigate or prosecute any alcohol or drug abuse patient.[facility] Encounter Details Date Type Department Care Team (Late st Contact Info) Description 11/27/2023 Patient [facility] -[address] [place] [address] Gianna Badillo RPh Medication refills Past Due Social History Tobacco Use Types [...] N ot on file 02/02/2020 Data from: [email or web address] Last address used for calculation Not on [...] of Assessment Author Yes 11/08/2013 8:56 AM uLis Amador ise * Do you have serious difficulty walking or climbing stairs? Answer Date of Assessment Author Yes 11/08/2013 8:56 AM Luis Amador ise * Do you have difficulty dressing or [...] on filedocumented in this encounter Care Teams Burial Vault Setter Relationship Specialty Start Date End Date Usman Hannon PA-C PCP - General Internal Medicine 02/06/20 Christy Moreland MD [address] [place] [address] Cardiology 02/06/20 Feng Jimenez DO [address] [place] [address] Internal Medicine 02/06/20 Laxmi Gunter MD [address] [place] [address] Referring Gastroenterology 02/04/23 documented as of this encounter
--- OUTSIDE RECORDS SUMMARY | 2024-10-30 09:58 | XMS_ITS | Encounter Summary ---
Author [facility] Address [id number] [address] [place] [address] Care Team Providers Care Farmworker Fur Name Role Phone Lewis Adamson MD Primary Care Provider [phone] Encounter Details Date Type Department Care Team (Late st Contact Info) Description 09/01/2021 Telephone [facility] Neurology [address] [place] [address] Raquel Vivar Social History Tobacco Use Types Packs/Day Years Used Date Smoking Tobacco: Never Smokeless Tobacco: Never Alcohol Use Standard Drinks/Week Comments No 0 (1 standard drink = 0.6 oz pur e alcohol) Social Connection and Isolat ion Panel [NHANES] Answer Date Recorded In a typical week, how many times do you talk on the phone with family, friends, or neighbors? More than three times a week 04/06/2021 How often do you get togethe r with friends or relatives? Once a week 04/06/2021 How often do you attend chur ch or orthodoxy services? Patient declined 04/06/2021 Do you belong to any clubs o r organizations such as methodist groups, unions, fraternal or athletic groups, or school groups? No 04/06/2021 How often do you attend meet ings of the clubs or organizations you belong to? Patient declined 04/06/2021 Are you , , di vorced, , never , or living with a partner? 04/06/2021 AUDIT-C Answer Date Recorded Q1: How often do you have a drink containing alc ohol? Never 04/06/2021 Average Number of Drinks Not on file 022 Q3: How often do you have si x or more drinks on one occasion? Never 04/06/2021 Overall Financial Resource Strain (CARDIA) Answe r Date Recorded How hard is it for you to pa y for the very basics like food, housing, medical care, and heating? Not hard at all 04/06/2021 PHQ-2 Answer Date Recorded Total Score 13 06/11/2021 [facility] of Occupat ional Health - Occupational Stress Questionnaire Answer Date Recorded Do you feel stress - tense, restless, nervous, or anxious, or unable to sleep at night because your mind is troubled all the time - these days? Very much 04/06/2021 Exercise Vital Sign Answer Date Recorde d On average, how many days pe r week do you engage in moderate to strenuous exercise (like a brisk walk)? 7 days 04/06/2021 On average, how many minutes do you engage in exercise at this level? 100 min 04/06/2021 PRAPARE - Transportation Answer Date Re corded In the past 12 months, has l ack of transportation kept you from medical appointments or from getting medications? No 09/2021 In the past 12 months, has l ack of transportation kept you from meetings, work, or from getting things needed for daily living? No 04/06/2021 Childcare Answer Date Recorded Do problems getting child ca re make it difficult for you to work or study? No 04/06/2021 Employment Answer Date Recorded Do you need help finding a l ocal career center and/or a training program? No 04/06/2021 Purpose - Life Answer Date Recorded I have a purpose and direction in my life. Maycol duffy Agree nor Disagree 04/06/2021 Education Answer Date Recorded What is the highest level of school you have completed or the highest degree you have received? Some college, no degree 03/01/2020 Comments No Sex and Gender Information Value Date Recorded Sex Assigned at Not on file Legal Sex Female 11:51 AM EDT Gender Identity Not on file Sexual Orientation Not on file Occupation Industry Job Start Date Job End Date disability Not on file Not on file Not on file documented as of this encounter Miscellaneous Notes * Telephone Encounter - Raquel Vivar - 09/01/2021 3:00 PM EDT Nidia from [facility] called and stated the patient rescheduled her MRI from tomorrow to 09/08.Nidia would also like to know if Dr. Florence was aware of the patient IVC filter. Nidia can be reachedat [phone] * Telephone Encounter - Surekha Florence MD - 09/01/2021 3:00 PM EDT Please advise the patient to let the MRI department sample prep technician about IVC filter, so that they can check if it is compatible with the MRI. Thanks documented in this encounter Plan of Treatment Upcoming Encounters Date Type Department Care Team (Late st Contact Info) Description 12/11/2024 9:45 AM EDT Office Visit [facility] Internal Medicine/Lewis Adamson MD [address] [phone] Lewis Adamson MD [address] [address] documented as of this encounter Visit Diagnoses Not on filedocumented in this encounter Additional Health Concerns Assessment Noted Time PHQ-9 Depression Total Score: 13 022 8:47 AM EDT A Body Mass Index follow-up plan has been documented for the patient 06/14/2021 12:11 AM EDT documented as of this encounter Care Teams Farmworker Fur Relationship Specialty Start Date End Date Lewis Adamson MD [address] [address] PCP - General Internal Medicine 01/04/22 documented as of this encounter
--- OUTSIDE RECORDS SUMMARY | 2024-10-30 09:58 | XMS_ITS | Encounter Summary ---
Author Organization [employer] [facility] tem Address [id number] [address] [place] [address] Care Team Providers Care Mental Health Coordinator Name Role Phone Lewis Adamson MD Primary Care Provider [phone] Encounter Details Date Type Department Care Team (Late st Contact Info) Description 03/05/2024 Orders Only [facility] Internal Medicine/Lewis Adamson MD [address] [place] [address] Ref Prov, [place] [address] Social History Tobacco Use Types Packs/Day Years [...] often do you attend chur ch or mu-ism services? Patient declined 04/07/2022 Do you belong to any clubs o r organizations such as hinduism groups, unions, fraternal or athletic groups, or [...] Answer Date Recorded Total Score 16 01/02/2024 [facility] of Occupat ional Health - [...] Recorded Do you need help finding a [facility] career center and/or a training program? [...] Encounters Date Type Department Care Team (Late Contact Info) Description 12/11/2024 9:45 AM EDT Office Visit [facility] Internal Medicine/Lewis Adamson MD [address] [phone] Lewis Adamson MD [address] [phone] documented as of this encounter Procedures Procedure Name Priority Date/Time Associated Diagnosis Comments MAMMOGRAPHY Routine 05/27/2021 documented in this encounter Results * MAMMOGRAPHY (05/27/2021) Anatomical Region Laterality Modality Other 05/27/2021 us Not In System Ref Prov HEALTH MAINTENANCE Final Result documented in this encounter Visit Diagnoses Not on filedocumented in this encounter Additional Health Concerns Assessment Noted Time PHQ-9 Depression Total Score: 16 024 12:56 PM EST A Body Mass Index follow-up plan has been documented for the patient 12/19/2023 11:41 AM EDT documented as of this encounter Care Teams Mental Health Coordinator Relationship Specialty Start Date End Date Lewis Adamson MD [address] [address] PCP - General Internal Medicine 01/04/22 documented as of this encounter
--- OUTSIDE RECORDS SUMMARY | 2024-10-30 09:58 | XMS_ITS | Clinical Summary ---
Author Organization Folloyu tem Address [facility] [place]-[id number] [address] [place] [address] Care Team Providers Care Supervisor Forming And Tempering Name Role Phone Lewis Adamson MD Primary Care Provider [phone] Allergies Active Allergy Reactions Criticality Noted Date Comments Cephalexin Hives,Other (See Comments) 02/06/2010 Heparin High 05/09/2017 Thickens blood, raises blood pressure Heparin (Porcine) Other (See Comments) 02/15/20 14 Penicillins Hives,Other (See Comments) 02/14/2014 Medications albuterol (PROVENTIL HFA;VENTOLIN HFA) 90 mcg/actuation inhaler Inhale 2 puffs in the morning and 2 puffs before bedtime. Active aspirin 81 mgIndications:Binh nary artery disease involving inupiat coronary artery of inupiat heart without angina pectoris Take 1 tablet (81 mg total) by mouth daily. 90 tablet 3 11/29/19 18 Active apixaban (ELIQUIS) 2.5 mg tablet Take 1 tablet (2.5 mg total) by mouth in the morning and 1 tablet (2.5 mg total) before bedtime. 04/23/19 19 Active VENTOLIN HFA 90 mcg/actuation inhaler inhale 2 puffs by mouth four times a day if needed for wheezing or shortness of breath 18 g 3 11/07/19 19 Active Additional Information Patient not taking.Reported on 09/10/2024 metoprolol tartrate (LOPRESSOR) 25 mg tablet Take 2 tablets (50 mg total) by mouth in the morning and 2 tablets (50 mg total) before bedtime. 05/11/19 22 Active cetirizine (ZyrTEC) 10 mg tabletIndications: Allergic rhinitis Take 1 tablet (10 mg total) by mouth in the morning for 30 days. 30 tablet 5 07/29/19 23 Active cholecalciferol, vitamin D3, (VITAMIN D3) 2,000 units capsuleIndications :Vitamin D insufficiency Take 1 capsule (2,000 Units total) by mouth in the morning. 90 capsule 3 12/28/19 23 Active blood sugar diagnostic (CONTOUR NEXT TEST STRIPS) strip TEST BEFORE BREAKFAST AND BEDTIME 100 strip 3 11/13/19 24 Active blood sugar diagnostic (ONETOUCH ULTRA TEST) strip 1 strip by other route in the morning and 1 strip before bedtime. 200 strip 3 11/16/19 24 Active lancets (MICROLET LANCET) miscIndications:Ne mercedes diagnosed diabetes ([facility]) TEST 2 TIMES A DAY 200 each 1 11/16/19 24 Active levETIRAcetam XR (KEPPRA XR) 500 mg 24 hr tabletIndications: Seizure disorder ([facility]) Take 3 tablets (1,500 mg total) by mouth nightly. 90 tablet 11 01/04/20 24 Active blood-glucose meter (ONETOUCH ULTRA2 METER) [facility] USE TO CHECK GLUCOSE TWICE DAILY 1 each 02/26/20 24 Active busPIRone (BUSPAR) 10 mg tabletIndications: FERNY (generalized anxiety disorder) Take 1 tablet (10 mg total) by mouth 3 (three) times a day. 90 tablet 5 04/18/19 25 Active pen needle, diabetic 32 gauge x 1/4 needle Inject 1 Pen Needle under the skin nightly. 100 each 07/03/19 25 Active insulin glargine (LANTUS U-100 INSULIN) 100 unit/mL injection Inject 0.14 mL (14 Units total) under the skin nightly. 10 mL 1 09/11/19 25 Active glyBURIDE (DIABETA) 5 mg tablet 1 before breakfast and 2 before dinner 90 tablet 5 09/11/19 25 Active atorvastatin (LIPITOR) 40 mg tabletIndications: Mixed hyperlipidemia TAKE ONE TABLET BY MOUTH IN THE MORNING 90 tablet 1 09/12/19 25 Active empagliflozin (JARDIANCE) 25 mg tablet tablet TAKE ONE TABLET BY MOUTH EVERY MORNING 90 tablet 1 09/12/19 25 Active Active Problems Patient Care Coordination No te Formatting of this note migh t be different from the original. 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 SVT (supraventricular tachycardia) 04/18/2024 Gastroparesis due to DM ([facility]) 04/18/2024 Emotional instability 01/04/2024 BMI 40.0-44.9, adult 06/09/2020 Ascending aortic aneurysm 07/19/2019 Allergic rhinitis 07/19/2019 Multiple thyroid nodules 06/13/2019 Iron deficiency anemia 11/27/2018 Low HDL (under 40) 11/28/2017 Hypercoagulable state 11/16/2017 Vascular disease 11/15/2017 Vitamin B 12 deficiency 08/29/2017 Vitamin D insufficiency 08/28/2017 Osteoarthritis of spine with radiculopathy, cerv ical region 06/15/2017 Presbyopia 06/15/2017 CAD (coronary artery disease) 05/25/2017 Factor V Leiden 05/09/2017 FERNY (generalized anxiety disorder) 05/09/2017 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r urbano 05/09/2017 Mixed hyperlipidemia 05/09/2017 Seizure disorder 05/09/2017 Neuropathy 05/09/2017 Current use of anticoagulant therapy 05/09/2017 Aneurysm of thoracic aorta 07/04/2016 Arteriovenous fistula 05/17/2011 Type 2 diabetes mellitus wit h hyperglycemia, without long-term current use of insulin Resolved Problems Problem Noted Date Diagnosed Date Resolved Date Severe obesity (BMI 35.0-39. 9) with comorbidity 03/09/2021 07/25/2021 COVID-19 02/14/2020 07/25/2021 Persistent cough 07/25/2018 11/29/2018 Wound healing, delayed 07/24/201811/29 Severe obesity (BMI 35.0-39. 9) with comorbidity 11/24/2017 03/03/2020 Recurrent sinusitis 06/08/2017 11/28/19 Deep vein thrombosis (DVT) of lower extremity 05/26/19 18 11/27/2018 Newly diagnosed diabetes 05/23/201702/2018 Thyroid adenoma 05/22/2017 12/11/2018 BMI 38.0-38.9,adult 05/09/2017 11/28/19 19 Migraine without aura and wi thout status migrainosus, not intractable 05/09/2017 11/27/2018 Iron deficiency anemia secon maeve to inadequate dietary iron intake 05/09/2017 8 Angina pectoris 01/04/2024 Encounters Date Type Department Care Team Description 09/10/2024 11:00 AM EDT Office Visit [facility]/Lewis Adamson MD [address] [place] [address] [phone] Usman Hannon PA-C Type 2 diabetes mellitus with hyperglycemia, without long-term current use of insulin ([facility]) (Primary Dx); Cyst of right kidney; Mixed hyperlipidemia; BMI 40.0-44.9, adult ([facility]); Glucosuria 09/10/2024 Refill [facility]/Lewis Adamson MD [address] [place] [address] [phone] Usman Hannon PA-C Mixed hyperlipidemia 09/10/2024 Travel 08/27/2024 1:15 PM EDT Office Visit [facility]/Lewis Adamson MD [address] [place] [address] [phone] Usman Hannon PA-C Burning with urination (Primary Dx); Dysuria; Proteinuria, unspecified type; Type 2 diabetes mellitus without complication, without long-term current use of insulin ([facility]) 08/26/2024 Travel 2024 Orders Only [facility]/Lewis Adamson MD [address] [place] [address] [phone] Ref Prov, Not In System from Last 3 Months Immunizations Immunization Administration Dates Next Due COVID-19, mRNA, LNP-S, PF, 100mcg/0.5mL Dose 06/15/2020,05/18/2020 Influenza (IM) Preservative Free 01/04/2024 Influenza, Injectable, Quadrivalent 01/04/2016,1 03/23/2014,12/06/2013 Influenza, Injectable, quadr ivalent (PF) 12/21/2022,12/22/2021,01/11/2021,12/09,11/28/2017,12/27/2016 Influenza, Intradermal (Pf) 11/27/2018 Influenza, Unspecified 12/09/2016 Pneumococcal Polysaccharide 12/10/2019 SARS-COV-2 (COVID-19) Vaccin e, Unspecified 06/15/2020,05/18/2020 Tdap 12/12/2011 Family History Medical History Relation Name Comments Hyperlipidemia Brother Heladio Arthritis Father Dad Diabetes Father Dad type II Hyperlipidemia Father Dad Hypertension Father Dad No Known Problems Maternal Grandfather Cancer Maternal Grandmother Mom side Diabetes Maternal Grandmother Mom side Cancer Maternal Uncle COPD Mother Mom Diabetes Mother Mom type II Early Mother Mom Emphysema Mother Mom Heart disease Mother Mom Hypertension Mother Mom Other Mother Mom acute myocardia l infarction Cancer Paternal Aunt Cancer Paternal Grandfather Dad side Diabetes Paternal Grandfather Dad side Stroke Paternal Grandfather Dad side Cancer Paternal Grandmother Dad side Hyperlipidemia Paternal Grandmother Dad side Hypertension Paternal Grandmother Dad side Thyroid Issues Paternal Grandmother Dad side Cancer Paternal Uncle Relation Name Status Comments Brother Heladio Father Dad Alive Maternal Grandfather Maternal Grandmother Mom side Maternal Uncle Mother Mom Paternal Aunt Paternal Grandfather Dad side Paternal Grandmother Dad side Paternal Uncle Social History Tobacco Use Types Packs/Day Years Used Date Smoking Tobacco: Never Smokeless Tobacco: Never Tobacco Cessation:Counseling Given: Not Answered Alcohol Use Standard Drinks/Week Comments No 0 [...] often do you attend chur ch or spiritism services? Patient declined 04/07/2022 Do you belong [...] Answer Date Recorded Total Score 16 01/02/2024 [facility] of Occupat ional Health - Occupational Stress [...] Recorded Do you need help finding a [facility] career center and/or a training program? [...] file Not on file Not on file Last Filed Vital Signs Vital Sign Reading Time Taken Comments Blood Pressure 118/72 09/10/2024 11:12 AM EDT Pulse 55 09/10/2024 11:12 AM EDT Temperature 36.4 C (97.5 F) 09/10/2024 11:12 AM EDT Respiratory Rate 18 07/28/2022 9:59 AM EDT Oxygen Saturation 97% 09/10/2024 11:12 AM EDT Inhaled Oxygen Concentration - - Weight 109.8 kg (242 lb) 09/10/2024 11:12 AM EDT Height 167.6 cm (5' 6 ) 09/10/2024 11:12 AM EDT Body Mass Index 39.06 09/10/2024 11:12 AM EDT Plan of Treatment Upcoming Encounters Date Type Department Care Team (Late st Contact Info) Description 12/11/2024 9:45 AM EDT Office Visit [facility]/Lewis Adamson MD [address] [phone] Lewis Adamson MD [address] [phone] Health Maintenance Due Date Last Done Comments Diabetic Ophthalmology Exam 1969 Colonoscopy 2014 DTaP,Tdap and Td Vaccines (2 - Td or Tdap) 12/11/2021 12/12/2011 Mammogram 05/27/2022 05/27/2021, 11/21/2018 Zoster (Shingles) Vaccine (2 of 2) 03/28/20232022 Diabetic Foot Exam 07/29/2023 07/28/2022 COVID-19 Vaccine (2 5 season) 2023 12/31/2020, 06/15/2020, 06/15/2020, Additional history exists Influenza Vaccine 10/28/2024 01/04/2024, , 12/22/2021, Additional history exists Adult BMI Follow Up Plan 12/18/2024 12/19/2023 Depression Screening 01/01/2025 01/02/2024 Adult BMI Screening 09/10/2025 09/10/2024 Tobacco Screening 09/10/2025 09/10/2024 Statin Use: Cardiovascular 09/11/2025 09/11/2024 Statin Use: Diabetic 09/11/2025 09/11/2024 Medical Devices Not on file Procedures Procedure Name Priority Date/Time Associated Diagnosis Comments POCT URINALYSIS DIPSTICK ONLY Routine 09/10/2024 12:15 PM EDT Glucosuria POCT URINALYSIS DIPSTICK ONLY Routine 08/27/2024 1:38 PM EDT Burning with urination URINE CULTURE Routine 08/27/2024 1:34 PM EDT Burning with urination HM MAMMOGRAPHY Routine 05/27/2021 from Last 3 Months or Most Recently Relevant to Health Maintenance Results * (ABNORMAL) POCT urinalysis dipstick only (09/10/2024 12:15 PM EDT) Only the most recent of2 resultswithin the time period is included. External Poct Urine Glucose Large MANUALLY TRANSCRIBED RESULTS External Poct Urine Bilirubin Negative MANUALLY TRANSCRIBED RESULTS External Poct Urine Ketones Negative MANUALLY TRANSCRIBED RESULTS External Poct Urine Specific Byram 1.030 MANUALLY TRANSCRIBED RESULTS External Poct Urine Blood Negative MANUALLY TRANSCRIBED RESULTS External Poct Urine Ph 6 MANUALLY TRANSCRIBED RESULTS External Poct Urine Protein Negative MANUALLY TRANSCRIBED RESULTS External Poct Urine Urobilinogen 1 MANUALLY TRANSCRIBED RESULTS External Poct Urine Nitrite Negative MANUALLY TRANSCRIBED RESULTS External Poct Urine Leukocyte Esterase Negative MANUALLY TRANSCRIBED RESULTS Urine 09/10/2024 12:1 5 PM EDT us Usman Hannon PA-C POINT OF CARE TEST ORDERABLE S Final Result MANUALLY TRANSCRIBED RESULTS * Urine culture (clean catch) (08/27/2024 1:34 PM EDT) CULTURE RESULTS 50-100,000 ORGANISMS/mL NORMAL UROGENITAL BORA 08/28/2024 7:07 PM EDT [facility] Urine Urine specimen collection, clean catch / Unknown 08/27/2024 1:34 PM EDT 08/27/2024 11:02 PM EDT us Usman Hannon PA-C MICROBIOLOGY - GENERAL ORDER JAMES Final Result [facility] [address] [place] [address], [place] [phone] * HM MAMMOGRAPHY (05/27/2021) Anatomical Region Laterality Modality Other 05/27/2021 us Not In System Ref Prov HEALTH MAINTENANCE Final Result from Last 3 Months or Most Recently Relevant to Health Maintenance Insurance [place]ICAID [place] Member Subscriber Plan / Payer (Ef fective 2022-Present) Name:Naila Beltran Relation to Subscriber:Self Name:Naila Beltran Payer ID:Not on file Group ID:Not on file Type:Not on file Address: [place] [id number] [employer] Care Teams Supervisor Forming And Tempering Relationship Specialty Start Date End Date Lewis Adamson MD [address] [phone] PCP - General Internal Medicine 01/04/22
--- OUTSIDE RECORDS SUMMARY | 2024-10-30 09:58 | XMS_ITS | Encounter Summary ---
Author Organization [facility] Address [address] [place] [address] Care Team Providers Care Chemotherapist Name Role Phone Lewis Adamson MD Primary Care Provider [phone] Usman Hannon PA-C Primary Care Provider Reason for Visit * Reason Comments Med Refill Encounter Details Date Type Department Care Team (Late st Contact Info) Description 10/25/2022 Refill [facility] [address] [place] [address] Nathaniel Nguyễn MD [address] [facility] [address] [facility] [place] [address] Palpitations Social History Tobacco Use Types Packs/Day Years Used Date Smoking Tobacco: Never Assessed Comments Unknown Sex and Gender Information Value Date Recorded Sex Assigned at Not on file Legal Sex Female 10:36 PM EDT Gender Identity Not on file Sexual Orientation Not on file documented as of this encounter Plan of Treatment Upcoming Encounters Date Type Department Care Team (Late st Contact Info) Description 11/06/2024 10:00 AM EDT Office Visit [facility] [address] [place] [address] Dori Duvall CNP [address] [place] [phone] 01/01/2025 1:00 PM EST Office Visit [facility] Vascular and Endovascular Surgery [address] [facility] [place] [address] Miladis oFster MD [address] [place] [phone] documented as of this encounter Visit Diagnoses Diagnosis Palpitations documented in this encounter Care Teams Chemotherapist Relationship Specialty Start Date End Date Lewis Adamson MD PCP - General Internal Medicine 11/11/21 12/04/22 Usman Hannon PA-C PCP - General 12/05/22 documented as of this encounter
--- OUTSIDE RECORDS SUMMARY | 2024-10-30 09:58 | XMS_ITS | Encounter Summary ---
Author Organization Spokeable s tem Address [id number] [address] [place] [address] Care Team Providers Care Rig Superintendent Name Role Phone Lewis Adamson MD Primary Care Provider [phone] Encounter Details Date Type Department Care Team (Late st Contact Info) Description 09/13/2022 Orders Only [facility]/Lewis Adamson MD [address] [place] [address] Ref Prov, [place] [address] Social History Tobacco Use Types Packs/Day Years [...] often do you attend chur ch or denominational services? Patient declined 04/07/2022 Do you belong to any clubs o r organizations such as religious groups, unions, fraternal or athletic groups, or [...] PHQ-2 Answer Date Recorded Total Score 0 07/28/2022 [facility] of Occupat ional Health - Occupational Stress [...] Recorded Do you need help finding a [facility] career center and/or a training program? No 04/07/2022 Purpose - Life Answer Date Recorded I [...] Visit [facility]/Lewis Adamson MD [address] [phone] Lewis Adamson MD [address] [phone] documented as of this encounter Visit Diagnoses Not on filedocumented in this encounter Additional Health Concerns Assessment Noted Time PHQ-9 Depression Total Score: 0 07/29/19 23 10:02 AM EDT A Body Mass Index follow-up plan has been documented for the patient 09/24/2021 12:55 PM EDT documented as of this encounter Care Teams Rig Superintendent Relationship Specialty Start Date End Date Lewis Adamson MD [address] [phone] PCP - General Internal Medicine 01/04/22 documented as of this encounter
--- OUTSIDE RECORDS SUMMARY | 2024-10-30 09:58 | XMS_ITS | Encounter Summary ---
Author Organization [facility] Address [id number] [address] [place] [address] Care Team Providers Care Nursing Services Manager Name Role Phone Lewis Adamson MD Primary Care Provider [phone] Reason for Visit * Reason Onset Date Comments Expiration Date 09/15/2022 Encounter Details Date Type Department Care Team (Late st Contact Info) Description 09/15/2022 [facility]phone [facility] [address] [place] [address] Raquel Vivar Expiration Date Social History Tobacco Use Types Packs/Day Years [...] often do you attend chur ch or shinto services? Patient declined 04/07/2022 Do you belong to any clubs o r organizations such as muslim groups, unions, fraternal or athletic groups, or [...] Answer Date Recorded Total Score 0 07/28/2022 [facility] of Occupat ional Health - Occupational Stress [...] Recorded Do you need help finding a [facility] career [facility] and/or a training program? No [...] * Telephone Encounter - Raquel Vivar - 09/15/2022 9:14 AM EDT Yu from [facility] called and stated the patient is scheduled for her MRI tomorrow but the referral the have for her is . She is asking to have the expiration date changed and re-faxed to her at [phone] as soon as possible. She asked to also included the patient's recent lab work. If there are any further questions Yu can be reached at * Telephone Encounter - Rajeev See CMA - 09/15/2022 9:14 [address] a new order? * Telephone Encounter - Jenny Neely MD - 09/15/2022 9:14 AM EDT Order for brain MRI with and without contrast is in. [facility] * Telephone Encounter - Rajeev See CMA - 09/15/2022 9:14 AM EDT Labs and new order has been faxed to [phone] * Telephone Encounter - Barry Chan - 09/15/2022 9:14 AM EDT Patient stated her MRI is complete. Patient scheduled appt: 12/21/22 w/ Dr. [place] in [place] documented in this encounter Plan of Treatment Upcoming Encounters Date Type Department Care Team (Late st Contact Info) Description 12/11/2024 9:45 AM EDT Office Visit [facility]/Lewis Adamson MD [address] [phone] Lewis Adamson MD [address] [phone] documented as of this encounter Visit Diagnoses Not on filedocumented in this encounter Additional Health Concerns Assessment Noted Time PHQ-9 Depression Total Score: 0 07/29/19 10:02 AM EDT A Body Mass Index follow-up plan has been documented for the patient 09/24/2021 12:55 PM EDT documented as of this encounter Care Teams Nursing Services Manager Relationship Specialty Start Date End Date Lewis Adamson MD [address] [phone] PCP - General Internal Medicine 01/04/22 documented as of this encounter
--- OUTSIDE RECORDS SUMMARY | 2024-10-30 09:58 | XMS_ITS | Encounter Summary ---
Author Organization [facility] Address [address] [place] [address] Care Team Providers Care Culinary Intern Name Role Phone Lewis Adamson MD Primary Care Provider [phone] Usman Hannon PA-C Primary Care Provider Reason for Visit * Reason Comments Med Refill Encounter Details Date Type Department Care Team (Late st Contact Info) Description 07/22/2022 Refill [facility] [address] [place] [address] Nathaniel Nguyễn MD [address] [facility] [address] [facility] [place] [address] Palpitations Social History Tobacco Use [...] Description 11/06/2024 10:00 AM EDT Office Visit [facility] [address] [place] [address] Dori Duvall CNP [address] [place] [phone] 01/01/2025 1:00 PM EST Office Visit [facility] Vascular and Endovascular Surgery [address] [facility] [place] [address] Miladis Foster MD [address] [facility] [place] [phone] documented as of this encounter Visit Diagnoses Diagnosis Palpitations documented in this encounter Care Teams Culinary Intern Relationship Specialty Start Date End Date Lewis Adamson MD PCP - General Internal Medicine 11/11/21 12/04/22 Usman Hannon PA-C PCP - General 12/05/22 documented as of this encounter
--- OUTSIDE RECORDS SUMMARY | 2024-10-30 09:58 | XMS_ITS | Encounter Summary ---
Author Organization [facility] tem Address [id number] [address] [place] [address] Care Team Providers Care Forepart Rounder Name Role Phone Lewis Adamson MD Primary Care Provider [phone] Reason for Visit * Reason Onset Date Comments Med Refill 09/12/2017 Encounter Details Date Type Department Care Team (Late st Contact Info) Description 09/12/2017 Refill [facility] [address] [place] [phone] Cielo Woods, Type 2 diabetes mellitus with hyperglycemia, without long-term current use of insulin (HCC) Social History Tobacco Use Types Packs/Day Years Used Date Smoking Tobacco: Never Smokeless Tobacco: Never Alcohol Use Standard Drinks/Week Comments No 0 (1 standard drink = 0.6 oz pur e alcohol) Comments Unknown Sex and Gender Information Value Date Recorded Sex Assigned at Not on file Legal Sex Female 11:51 AM EDT Gender Identity Not on file Sexual Orientation Not on file Occupation Industry Job Start Date Job End Date disability Not on file Not on file Not on file documented as of this encounter Miscellaneous Notes * Telephone Encounter - Cielo Woods CPT - 09/12/2017 11:13 AM EDT Naila left a message that we forgot to call her Metformin in to the [facility] in [place] and to call her back if we need anything else. * Telephone Encounter - Toshia Forbes MA - 09/12/2017 11:13 AM EDT Last appointment 08/28/2017, next appt. 11/28/2017. Toshia Forbes MA 09/12/17 [id number] documented in this encounter Plan of Treatment Upcoming Encounters Date Type Department Care Team (Late st Contact Info) Description 12/11/2024 9:45 AM EDT Office Visit [facility]/Lewis Adamson MD [address] [phone] Lewis Adamson MD [address] [phone] documented as of this encounter Visit Diagnoses Diagnosis Type 2 diabetes mellitus with hyperglycemia, without long-term current use of insulin ([facility]) documented in this encounter Additional Health Concerns Infection Onset Date Last Indicated Resolved Time MRSA Comment:Abdomen sterile field culture 09/01/11 Infection converted via [employer] from [employer] system information 09/06/2011 09/06/201109/28 11:19 PM EDT Assessment Noted Time PHQ-9 Depression Total Score: 13 018 1:00 PM EDT A Body Mass Index follow-up plan has been documented for the patient 08/28/2017 1:50 PM EDT documented as of this encounter Care Teams Forepart Rounder Relationship Specialty Start Date End Date Lewis Adamson MD [address] [phone] PCP - General Internal Medicine 01/04/22 documented as of this encounter
--- OUTSIDE RECORDS SUMMARY | 2024-10-30 09:58 | XMS_ITS | Encounter Summary ---
Author Organization [employer] [facility] tem Address [id number] [place] [address] Care Team Providers Care Senior System Operator Name Role Phone Lewis Adamson MD Primary Care Provider [phone] Encounter Details Date Type Department Care Team (Late st Contact Info) Description 03/26/2021 Telephone [facility]/Lewis Adamson MD [address] [place] [phone] Usman Hannon, SANDOVALC [address] [place] [address] Social History Tobacco Use Types Packs/Day Years [...] neighbors? More than three times a week 03/01/2020 How often do you get togethe r with friends or relatives? Once a week 03/01/2020 How often do you attend chur or uatsdin services? More than 4 times per year 03/01/2020 Do you belong to any clubs o r organizations such as denominational groups, unions, fraternal or athletic groups, or school groups? No 03/01/2020 How often do you attend meet ings of the clubs or organizations you belong to? Never 03/01/2020 Are you , , di vorced, , never , or living with a partner? 03/01/2020 AUDIT-C Answer Date Recorded Q1: How often do you have a drink containing alc ohol? Never 03/01/2020 Q2: How many drinks containi ng alcohol do you have on a typical day when you are drinking? Patient declined 03/01/2020 Q3: How often do you have si x or more drinks on one occasion? Less than monthly 03/01/2020 Overall Financial Resource Strain (CARDIA) Answe r Date Recorded How hard is it for you to pa y for the very basics like food, housing, medical care, and heating? Not hard at all 03/01/2020 PHQ-2 Answer Date Recorded Total Score 0 01/26/2021 [facility] - Occupational Stress Questionnaire Answer Date Recorded Do you feel stress - tense, restless, nervous, or anxious, or unable to sleep at night because your mind is troubled all the time - these days? Very much 03/01/2020 Exercise Vital Sign Answer Date Recorde d On average, how many days pe r week do you engage in moderate to strenuous exercise (like a brisk walk)? 4 days 03/01/2020 On average, how many minutes do you engage in exercise at this level? 20 min 03/01/2020 PRAPARE - Transportation Answer Date Re corded In the past 12 months, has l ack of transportation kept you from medical appointments or from getting medications? No 03/01/2020 In the past 12 months, has l ack of transportation kept you from meetings, work, or from getting things needed for daily living? Patient declined 03/01/2020 Childcare Answer Date Recorded Do problems getting child ca re make it difficult for you to work or study? No 03/01/2020 Employment Answer Date Recorded Do you need help finding a l al career center and/or a training program? No 03/01/2020 Purpose - Life Answer Date Recorded Purpose and direction in life Unknown Education Answer Date Recorded What is the [...] [facility]/Lewis Adamson MD [address] [address] Lewis Adamson MD [address] [address] documented as of this encounter Visit Diagnoses Not on filedocumented in this encounter Additional Health Concerns Assessment Noted Time PHQ-9 Depression Total Score: 0 01/27/20 21 2:15 PM EST A Body Mass Index follow-up plan has been documented for the patient 11/28/2017 11:01 AM EDT documented as of this encounter Care Teams Senior System Operator Relationship Specialty Start Date End Date Lewis Adamson MD [address] [address] PCP - General Internal Medicine 01/04/22 documented as of this encounter
--- OUTSIDE RECORDS SUMMARY | 2024-10-30 09:58 | XMS_ITS | Encounter Summary ---
Author Organization [facility] Address [address] [place] [address] Care Team Providers Care Crane Man Name Role Phone ParvezJosephhelena Coleman PA-C Primary Care Provider [phone] Christy Moreland MD Unavailable [phone] Feng Jimenez DO Unavailable [phone] Laxmi Gunter MD Unavailable Source Comments In the event this information is protected by the Federal Confidentiality of Alcohol and Drug AbusePatient Records regulations: The Federal rules restrict any use of the information to criminally investigate or prosecute any alcohol or drug abuse patient.[facility] Encounter Details Date Type Department Care Team (Late st Contact Info) Description 05/23/2023 Patient Msg Gastroenterology [facility] [address] [place] [address] Provider, [facility] EGG Test Instructions Social History Tobacco Use Types Packs/Day Years [...] N ot on file 02/02/2020 Data from: https://www.neighborhoodatlas.medicine.[facility]/. Last address used for calculation Not [...] 11/08/2013 8:56 AM Luis Amador ise * Are you blind or do you have serious difficulty seeing, even when wearing glasses? Answer Date of Assessment Author Yes 11/08/2013 8:56 AM Luis Amador ise * Do you have serious [...] Author No 11/08/2013 8:56 AM Luis Amador iscorey documented as of this encounter Mental Status * Because of a physical, mental, or emotional condition, do you have serious difficulty concentrating, remembering, or making decisions? Answer Entry Date Author No 11/08/2013 8:56 AM Luis Amador documented in this encounter Plan of Treatment Not on file documented as of this encounter Visit Diagnoses Not on filedocumented in this encounter Care Teams Crane Man Relationship Specialty Start Date End Date Usman Hannon PA-C PCP - General Internal Medicine 02/06/20 Christy Moreland MD [address] [place] [address] Cardiology 02/06/20 Feng Jimenez DO [address] [place] [address] Internal Medicine 02/06/20 Laxmi Gunter MD [address] [place] [address] Referring Gastroenterology 02/04/23 documented as of this encounter
--- OUTSIDE RECORDS SUMMARY | 2024-10-30 09:58 | XMS_ITS | Encounter Summary ---
Author Organization [facility] Address [address] [place] [address] Care Team Providers Care Oil Well Shooter Name Role Phone ParvezJosephhelena Coleman PA-C Primary Care Provider [phone] Christy Moreland MD Unavailable [phone] Feng Jimenez DO Unavailable [phone] Laxmi Gunter MD Unavailable Source Comments In the event this information is protected by the Federal Confidentiality of Alcohol and Drug AbusePatient Records regulations: The Federal rules restrict any use of the information to criminally investigate or prosecute any alcohol or drug abuse patient.[facility] Encounter Details Date Type Department Care Team (Late st Contact Info) Description 06/03/2022 Patient [facility] [address] [place] [address] Provider, [facility] medication Social History Tobacco Use Types Packs/Day Years [...] ot on file 02/02/2020 Data from: https://www.neighborhoodatlas.medicine.[facility]/. Last address used for calculation Not [...] No 11/08/2013 8:56 AM Luis Amador ise documented as of this encounter Mental Status * Because of a physical, mental, or emotional condition, do you have serious difficulty concentrating, remembering, or making decisions? Answer Entry Date Author No 11/08/2013 8:56 AM Luis Amador ise documented in this encounter Plan of Treatment Not on file documented as of this encounter Visit Diagnoses Not on filedocumented in this encounter Care Teams Oil Well Shooter Relationship Specialty Start Date End Date Usman Hannon PA-C PCP - General Internal Medicine 02/06/20 Chritsy Moreland MD [address] [place] [address] Cardiology 02/06/20 Feng Jimenez DO [address] [place] [address] Internal Medicine 02/06/20 Laxmi Gunter MD [address] [place] [address] Referring Gastroenterology 02/04/23 documented as of this encounter
--- OUTSIDE RECORDS SUMMARY | 2024-10-30 09:58 | XMS_ITS | Clinical Summary ---
Author Organization Address [address] [place] [address] Care Team Providers Care Flavoring Machine Operator Name Role Phone Usman Hannon PA-C Primary Care Provider [phone] Christy Moreland MD Unavailable [phone] Feng Jimenez DO Unavailable [phone] Laxmi Gunter MD Unavailable Allergies Active Allergy Reactions Criticality Noted Date Comments Aspirin Unknown Heparin Analogues Unknown 12/22/2011 Cephalexin Hives 02/06/2010 Penicillin G Hives 02/06/2010 Medications Multivitamins ORAL Chew None Entered Active Comp.Stocking,Th igh,Long,X-Lrg misc Wear stocking daily 1 Each 0 11/16/19 16 Active atorvastatin (LIPITOR) 40 mg tabletIndication s:Hypercoagulabl e state (HCC),Vascular disease,Atherosc lerosis of viejas coronary artery of viejas heart without angina pectoris Take 40 mg by mouth once daily. Active aspirin 81 mg chewable tablet q 24 HR. Acti ve albuterol HFA (PROVENTIL HFA, VENTOLIN HFA) 90 mcg/actuation inhaler Ventolin HFA 90 mcg/actuation aerosol inhaler 11/07/19 19 Active levETIRAcetam XR (KEPPRA XR) 500 mg 24 hr tablet Take 1,500 mg by mouth daily at bedtime. 07/25/19 19 Active cetirizine (ZYRTEC) 10 mg tablet Take 10 mg by mouth. 09/12/19 20 Active Fluticasone Furoate 27.5 mcg/actuation nasal spray fluticasone Fluticasone Furoate Active 1 SPRAY Intranasal Daily June 13, 2017 7:29am 06-13-2017 [facility] ([id number]) 06/14/19 18 Active sitaGLIPtin-metF ORMIN (JANUMET) 50-500 mg per tablet Take 1 tablet by mouth twice daily with meals. 11/12/19 20 Active glyBURIDE (DIABETA) 5 mg tablet Take 5 mg by mouth. Takes 1 tablet with each small meal. Usually about 3 per day 05/05/19 22 Active iv contrast (will be provided with radiology test) CT ABD/PEL -Inject, intravenously, once for 1 dose.No IV access, insert saline lock prior to the beginning of sedation, infusion, injection of imaging exam. Discontinue saline lock post exam. If Pt. has a central line or IVAD, may access for administration according to line specific nursing protocol. Once exam is complete flush line and de-access according to line specific nursing protocol in the CT contrast administration guidelines link. 1 Each 03/25/19 23 Active enteric contrast (will be provided with radiology test) For CT ABD/PEL W IVCON Routine order Administer, As Directed One Time Only, via Oral, Rectal, both Oral and Rectal, Enteric Tube, Stoma or Indwelling Catheter, Enteric Contrast as designated per enteric contrast guidelines 1 Each 03/25/19 23 Active lubiprostone (AMITIZA) 8 mcg capsuleIndicatio ns:Irritable bowel syndrome with both constipation and diarrhea Take 1 capsule by mouth two times a day with meals. 60 capsule 5 08/02/19 24 Active metoprolol tartrate, short acting, (LOPRESSOR) 50 mg tablet Take 50 mg by mouth two times a day. Active tiZANidine (ZANAFLEX) 2 mg tablet Take 2 mg by mouth every 8 hours as needed (neck pain). 03/21/[address] (PROTONIX) 40 mg tablet Take 1 tablet by mouth two times a day. 60 tablet 08/22/19 24 Active apixaban (ELIQUIS) 2.5 mg tab(s) Take 1 tablet by mouth two times a day. 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 Pt. reports she received instruction. Per 02/05/2020 TELEPHONE: Dr. Spivey(Hematology)- updated/ aware Pt. will be holding Eliquis 3 days before surgery HLD (hyperlipidemia) 02/06/2020 Assessment & Plan (02/06/2020 10:06 AM EST): Assessment: Medication for Control. 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 Followed by Cardiology Dr. Christy Moreland. Stress test 10/2018, Echo 06/2019 Assessment & Plan (02/06/2020 10:45 AM EST): Assessment: stress test 2018; Monitored by Dr. Christy Moreland Non- worsening angina Managed with metoprolol Per Cardiology ( 06/2019):2019 Lexiscan - normal; did GI consult re: CP Stable. Diabetes mellitus type 2 02/06/2020 Assessment & Plan (03/04/2020 1:08 PM EST): On Janumet. AM sugars 150-210s, last A1c with PCP yesterday 7.7. Patient was advised by PCP Usman Hannon yesterday to d/c her janumet because they thought this might be contributing to abdominal symptoms. I advised patient that if this is causing her home fasting sugars to be consistently above 200 she should contact PCP to discuss an alternative to the janument pre surgery, if sugar too high DOS could be canceled. Patient understands. Assessment & Plan (02/06/2020 10:07 AM EST): Assessment: Managed with oral med GERD (gastroesophageal reflux disease) 0 Assessment & Plan (03/04/2020 1:04 PM EST): Stable, on rx Assessment & Plan (02/06/2020 10:08 AM EST): Assessment: Pt. reports symptoms controlled with med Personal history of DVT (deep vein thrombosis) 1 04/08/2019 Assessment & Plan (03/04/2020 1:18 PM EST): Multiple DVT LLE, s/p IVC filter, on eliquis. Assessment & Plan (02/06/2020 10:22 AM EST): Assessment: in LLE s/p IVC filter No recent episodes Fatty liver 02/06/2020 Assessment & Plan (02/06/2020 10:10 AM EST): Assessment: per CT imaging Asymptomatic LifeStyle Modifications encouraged Morbid obesity 02/06/2020 Assessment & Plan (02/06/2020 10:10 AM EST): Assessment: Body mass index is 41 kg/m . Weight reduction encouraged. Vascular disease 11/15/2017 Hypercoagulable state 01/16/2013 Assessment & Plan (03/04/2020 1:18 PM EST): BMI 41 Assessment & Plan (02/06/2020 10:18 AM EST): Assessment: Factor V Leiden ( noted in [facility]) Hx DVT, anticoagulated Seizures Assessment & Plan (03/04/2020 12:14 PM EST): Stable, on keppra, last seizure 6-7 years ago Assessment & Plan (02/06/2020 10:19 AM EST): Assessment: Epilepsy-Managed with Keppra Last seizure 6-7 years ago Currently Monitored by PCP SOB (shortness of breath) Assessment & Plan (03/04/2020 1:04 PM EST): Related to onset of biliary colic. Has been evaluated by pulm Dr. Jimenez. Currently using inhalers ~once daily and feels at baseline. No SOB with ADLs. Assessment & Plan (02/06/2020 5:06 PM EST): Assessment: Managed with inhalers since gallbladder pain. Pt. has been evaluated by PCP, Cardiology and Pulmonary( Dr. Jimenez -evaluated Summer 2019-PFT requested) She denies any worsening of symptoms from baseline RA 02/06/20 0941 SpO2: 98% PVD (peripheral vascular disease) Assessment & Plan (03/04/2020 12:14 PM EST): S/p stents left groin and vein bypass. Followed by Dr. Miladis Foster Assessment & Plan (02/06/2020 10:21 AM EST): Assessment: s/p stents in Left groin and vein bypass Monitored by Dr. Miladis Foster ( [facility]) Ascending aorta dilation Assessment & Plan (03/04/2020 12:14 PM EST): Stable, 4.5 cm on Echo 06/2019 Assessment & Plan (02/06/2020 10:35 AM EST): Assessment: 4.5 cm per 06/2019 ECHO Asymptomatic Monitored by PCP and Cardiology Stable. Immunizations Immunization Administration Dates Next Due COVID-19 original vaccine, f ull dose, monovalent (MODERNA) 06/15/2020 influenza (IIV4) vaccine, ag e 6 mo - 64 yr, quadrivalent (AFLURIA, FLULAVAL, FLUZONE) 01/04/2016,01/21/2015,12/06/2013 influenza (IIV4) vaccine, ag e 6 mo - 64 yr, quadrivalent, PF (AFLURIA, FLUARIX, FLULAVAL, FLUZONE) 12/22/2021,01/11/2021,12/10/2019,11/28,12/27/2016 influenza (IIV4) vaccine, quadrivalent, PF, intradermal (FLUZONE INTRADERMAL) 11/27/2018 influenza (LAIV) vaccine, na denice, unspecified formulation 12/09/2016 pneumococcal polysaccharide (PPV23) vaccine, 23 valent (PNEUMOVAX 23) 12/10/2019 tetanus diphtheria pertussis (Tdap) vaccine, age 7+ yr (ADACEL, BOOSTRIX) 12/12/2011 Family History Medical History Relation Comments Asthma Brother 2 Diabetes Father Lipids Father Diabetes Mother Hypertension Mother Kidney Disease Mother Stroke Mother Anesthesia Problems No Family History Relation Status Comments Brother 1 Alive Brother 2 Father Alive Mother Alive Social History Tobacco Use Types Packs/Day Years Used Date Smoking Tobacco: Never Smokeless Tobacco: Never Tobacco Cessation:Counseling Given: Not Answered Comments:Boyfriend smokes Alcohol Use Standard Drinks/Week Comments No 0 (1 standard drink = 0.6 oz pur e alcohol) PHQ-2 Answer Date Recorded PHQ-2 score 6 11/15/2020 Area Deprivation Index Answer Date Rehan rded National Score (1-100), lower number is lower ri sk 54 06/10/2024 State Score (1-10), lower number is lower risk 3 06/10/2024 Data from: https://www.neighborhoodatlas.[facility].edu/. Last address used for calculation [address] 06/10/2024 Comments No Sex and Gender Information Value Date Recorded Sex Assigned at Female 02/02/2020 10:35 PM EST Legal Sex Female 8:26 AM EST Gender Identity Female 02/02/2020 10:35 PM EST Sexual Orientation Straight 02/02/2020 10 :35 PM EST Last Filed Vital Signs Vital Sign Reading Time Taken Comments Blood Pressure 119/77 06/10/2024 10:20 AM EDT Pulse 72 06/10/2024 10:20 AM EDT Temperature 36.2 C (97.2 F) 06/10/2024 10:20 AM EDT Respiratory Rate 16 06/10/2024 10:2 0 AM EDT Oxygen Saturation 95% 06/10/2024 10: 20 AM EDT Inhaled Oxygen Concentration - - Weight 108.5 kg (239 lb 4.6 oz) 025 10:20 AM EDT Height 170.2 cm (5' 7.01 ) 06/10/2024 1 0:20 AM EDT Body Mass Index 37.47 06/10/2024 10:20 AM EDT Plan of Treatment Health Maintenance Due Date Last Done Comments Diabetic Foot Exam 08/09/1979 Dilated Retinal Exam 08/09/1979 Annual PCP Team Chronic Dise ase Visit 08/09/1987 HIV Screening 08/09/1987 Hepatitis C Screening 08/09/1987 LDL Cholesterol 08/09/1987 Hepatitis B Vaccine (1 of 3 - 19+ 3-dose series) 1988 Cervical Cancer Screening 1990 CT Colonography 2014 Cologuard (FIT-DNA) 2014 Colonoscopy 2014 Colorectal Cancer Screening 2014 Fecal Occult Blood 2014 Sigmoidoscopy 2014 Mammogram Screening 11/22/2019 11/21/2018, 11/21/2018, 11/21/2018 Pneumococcal Vaccine: 50+ (2 of 2 - PCV) 12/09/2020 12/10/2019 DTaP,Tdap,Td Vaccine (2 - Td or Tdap) 12/11/2021 12/12/2011 Shingrix Vaccine (2 of 2) 03/28/2023 01/31/2023 Medicare Advantage Annual We llness Visit 02/28/2024 HbA1C 10/16/2024 04/18/2024, 02/2 , 06/28/2023, Additional history exists Influenza Vaccine (#1) 2024 , 12/21/2022, 12/22/2021, Additional history exists Urine Albumin:Creatinine Ratio 04/18/2025 0 04/18/2024, 06/28/2023, 07/28/2022, Additional history exists Insurance [place]ICAID [place] [employer] MEDICARE ADVANTAGE O Care Teams Flavoring Machine Operator Relationship Specialty Start Date End Date Usman Hannon PA-C PCP - General Internal Medicine 02/06/20 Christy Moreland MD [address] [place] [address] Cardiology 02/06/20 Feng Jimenez DO [address] [place] [address] Internal Medicine 02/06/20 Laxmi Gunter MD [address] [place] [address] Referring Gastroenterology 02/04/23
--- OUTSIDE RECORDS SUMMARY | 2024-10-30 09:58 | XMS_ITS | Encounter Summary ---
Author Organization [employer] tem Address [id number] [address] [place] [address] Care Team Providers Care Trolley Car Operator Name Role Phone Lewis Adamson MD Primary Care Provider [phone] Reason for Visit * Reason Comments Med Refill Encounter Details Date Type Department Care Team (Late st Contact Info) Description 01/29/2018 Refill [facility] [address] [place] [phone] Nguyen Cox, LAMINATING MACHINE FEEDER-HEEL TRIMMER [address] [facility] [place] [address] FERNY (generalized anxiety disorder) Social History Tobacco Use Types Packs/Day Years [...] [facility]/Lewis Adamson MD [address] [address] Lewis Adamson MD [address] [id number] documented as of this encounter Visit Diagnoses Diagnosis FERNY (generalized anxiety disorder) Generalized anxiety disorder documented in this encounter Additional Health Concerns Infection Onset Date Last Indicated Resolved Time MRSA Comment:Abdomen sterile field culture 09/01/11 Infection converted via [employer] from [employer] system information 09/06/2011 09/06/201109/28 11:19 PM EDT Assessment Noted Time PHQ-9 Depression Total Score: 13 018 1:00 PM EDT A Body Mass Index follow-up plan has been documented for the patient 11/28/2017 11:01 AM EDT documented as of this encounter Care Teams Trolley Car Operator Relationship Specialty Start Date End Date Lewis Adamson MD [address] [address] PCP - General Internal Medicine 01/04/22 documented as of this encounter
--- OUTSIDE RECORDS SUMMARY | 2024-10-30 09:58 | XMS_ITS | Encounter Summary ---
Author Organization [facility] Address [address] [place] [address] Care Team Providers Care Paste Mixer Name Role Phone Usman Hannon PA-C Primary Care Provider Reason for Visit * Reason Comments Med Change Request Encounter Details Date Type Department Care Team (Late st Contact Info) Description 01/30/2023 Refill [facility] [address] [place] [address] Nathaniel Nguyễn MD [address] [facility] [address] [facility] [place] [address] Palpitations Social History Tobacco Use [...] Description 11/06/2024 10:00 AM EDT Office Visit [facility] [address] [place] [address] Dori Duvall CNP [address] [place] [phone] 01/01/2025 1:00 PM EST Office Visit [facility] Vascular and Endovascular Surgery [address] [place] [address] Miladis Foster MD [address] [place] [address] documented as of this encounter Visit Diagnoses Diagnosis Palpitations documented in this encounter Care Teams Paste Mixer Relationship Specialty Start Date End Date Usman Hannon PA-C PCP - General 12/05/22 documented as of this encounter
--- OUTSIDE RECORDS SUMMARY | 2024-10-30 09:58 | XMS_ITS | Encounter Summary ---
Author Organization [employer] [facility] [employer] Address [id number] [address] [place] [address] Care Team Providers Care Patient Coordinator Name Role Phone Lewis Adamson MD Primary Care Provider [phone] Reason for Visit * Reason Comments Med Refill Encounter Details Date Type Department Care Team (Late st Contact Info) Description 06/30/2020 Refill [facility] [address] [place] [address] Usman Hannon, PAMakaylaC [address] [place] [address] Social History Tobacco Use Types Packs/Day Years [...] How often do you attend chur or scientology services? More than 4 times per year 03/01/2020 Do you belong to any clubs o r organizations such as shinto groups, unions, fraternal or athletic groups, or [...] 03/01/2020 PHQ-2 Answer Date Recorded Total Score 16 03/01/2020 [facility] - Occupational [...] Recorded Do you need help finding a [facility] and/or a training program? No [...] have Coronavirus / COVID-19? No / Unsure 06/16/2020 9:18 AM EDT documented as of this encounter Plan of Treatment Upcoming Encounters Date Type Department Care Team (Late st Contact Info) Description 12/11/2024 9:45 AM EDT [facility]Lewis Aadmson MD [address] [address] Lewis Adamson MD [address] [address] documented as of this encounter Visit Diagnoses Not on filedocumented in this encounter Additional Health Concerns Infection Onset Date Last Indicated Resolved Time MRSA Comment:Abdomen sterile field culture 09/01/11 Infection converted via [employer] from [employer] system information 09/06/2011 09/06/201109/28 11:19 PM EDT Assessment Noted Time PHQ-9 Depression Total Score: 16 021 6:18 PM EST A Body Mass Index follow-up plan has been documented for the patient 11/28/2017 11:01 AM EDT documented as of this encounter Care Teams Patient Coordinator Relationship Specialty Start Date End Date Lewis Adamson MD [address] [phone] PCP - General Internal Medicine 01/04/22 documented as of this encounter
--- OUTSIDE RECORDS SUMMARY | 2024-10-30 09:58 | XMS_ITS | Encounter Summary ---
Author Organization [facility] Address [facility] [place] [address] Care Team Providers Care Clay Carman Name Role Phone Usman Hannon PA-C Primary Care Provider [phone] Christy Moreland MD Unavailable [phone] Feng Jimenez DO Unavailable [phone] Laxmi Gunter MD Unavailable Source Comments In the event this information is protected by the Federal Confidentiality of Alcohol and Drug AbusePatient Records regulations: The Federal rules restrict any use of the information to criminally investigate or prosecute any alcohol or drug abuse patient.[facility] Encounter Details Date Type Department Care Team (Late st Contact Info) Description 08/09/2023 Patient Msg Pre Anesthesia [address] [place] [address] Prudence Deng PA-C [address] [place] [address] Your pre-operative instructions Social History Tobacco Use Types Packs/Day [...] N ot on file 02/02/2020 Data from: https://www.neighborhoodatlas.medicine.[facility]/. Last address used for calculation Not on [...] of Assessment Author No 11/08/2013 8:56 AM uLis Amador documented as of this encounter Mental Status * Because of a physical, mental, or emotional condition, do you have serious difficulty concentrating, remembering, or making decisions? Answer Entry Date Author No 11/08/2013 8:56 AM Luis Amador documented in this encounter Plan of Treatment Not on file documented as of this encounter Visit Diagnoses Not on filedocumented in this encounter Care Teams Clay Carman Relationship Specialty Start Date End Date Usman Hannon PA-C PCP - General Internal Medicine 02/06/20 Christy Moreland MD [address] [place] [address] Cardiology 02/06/20 Feng Jimenez DO [address] [place] [address] Internal Medicine 02/06/20 Laxmi Gunter MD [address] [place] [address] Referring Gastroenterology 02/04/23 documented as of this encounter
--- OUTSIDE RECORDS SUMMARY | 2024-10-30 09:58 | XMS_ITS | Encounter Summary ---
[facility] Address [id number] [address] [place] [address] Care Team Providers Care Direct Mail Coordinator Name Role Phone Lewis Adamson MD Primary Care Provider [phone] Encounter Details Date Type Department Care Team (Late st Contact Info) Description 06/10/2021 Telephone [facility] [address] [place] [address] Raquel Vivar Social History Tobacco [...] often do you attend chur ch or zoroastrianism services? Patient declined 04/06/2021 Do you belong to any clubs o r organizations such as baptism groups, unions, fraternal or athletic groups, or [...] Answer Date Recorded Total Score 13 06/11/2021 [facility] Occupat ional [facility] - Occupational Stress [...] Exposure Response Date Recorded In the last 10 days, have gia winters been in contact with someone who was confirmed or suspected to have Coronavirus/COVID-19? No / Unsure 06/11/2021 8:43 AM EDT documented as of this encounter Miscellaneous Notes * Telephone Encounter - Raquel Vivar - 06/10/2021 10:28 AM EDT Patient returned call and stated she never received a call from [employer] today and she wanted the nurse to know she did not cuss at here. She thinks maybe 'some wires got crossed and you spoke with someone else she will be at her appointment tomorrow at 9am documented in this encounter Plan of Treatment Upcoming Encounters Date Type Department Care Team (Late st Contact Info) Description 12/11/2024 9:45 AM EDT [facility]Lewis Adamson MD [address] [address] Lewis Adamson MD [address] [address] documented as of this encounter Visit Diagnoses Not on filedocumented in this encounter Additional Health Concerns Assessment Noted Time PHQ-9 Depression Total Score: 14 022 11:21 AM EST A Body Mass Index follow-up plan has been documented for the patient 11/28/2017 11:01 AM EDT documented as of this encounter Care Teams Direct Mail Coordinator Relationship Specialty Start Date End Date Lewis Adamson MD [address] [phone] PCP - General Internal Medicine 01/04/22 documented as of this encounter
--- OUTSIDE RECORDS SUMMARY | 2024-10-30 09:58 | XMS_ITS | Encounter Summary ---
Author Organization [employer] Address [id number] [address] [place] [address] Care Team Providers Care Complaints Coordinator Name Role Phone Lewis Adamson MD Primary Care Provider [phone] Reason for Visit * Reason Comments Med Refill Encounter Details Date Type Department Care Team (Late st Contact Info) Description 12/01/2021 Refill [facility] [address] [place] [address] Usman Hannon, PAMakaylaC [address] [place] [address] Social History Tobacco Use Types Packs/Day Years [...] week 04/06/2021 How often do you attend [facility] or yarsani services? Patient declined 04/06/2021 Do you belong to any clubs o r organizations such as voodoo groups, unions, fraternal or athletic groups, or [...] Answer Date Recorded Total Score 13 06/11/2021 [facility] Answer Date Recorded [...] [facility]/Lewis Adamson MD [address] [address] Lewis Adamson MD [address] [address] documented as of this encounter Visit Diagnoses Not on filedocumented in this encounter Additional Health Concerns Assessment Noted Time PHQ-9 Depression Total Score: 13 022 8:47 AM EDT A Body Mass Index follow-up plan has been documented for the patient 09/24/2021 12:55 PM EDT documented as of this encounter Care Teams Complaints Coordinator Relationship Specialty Start Date End Date Lewis Adamson MD [address] [address] PCP - General Internal Medicine 01/04/22 documented as of this encounter
--- OUTSIDE RECORDS SUMMARY | 2024-10-30 09:58 | XMS_ITS | Clinical Summary ---
Author Organization [facility] Address [address] [place] [address] Care Team Providers Care Recovery Coach Name Role Phone Usman Hannon PA-C Primary Care Provider Allergies Active Allergy Reactions Criticality Noted Date Comments Aspirin Unknown 07/29/2024 Cephalexin Hives,Other 02/06/2010 Heparin High 05/09/2017 Thickens blood, raises blood pressure Heparin (Porcine) Rash Low 02/14/2014 Heparin Analogues Unknown 12/22/2011 Penicillins Hives,Other 02/06/2010 Medications albuterol 90 mcg/actuation inhaler Inhale 1 puff as needed by inhalation route for 25 days. 9 Active aspirin 81 mg EC tablet Take 81 mg by mouth in the morning. 8 Active apixaban (Eliquis) 2.5 mg tablet Take 1 tablet by mouth in the morning and at bedtime. 9 Active atorvastatin (Lipitor) 40 mg tablet Take 1 tablet by mouth at bedtime. 9 Active metoclopramide (Reglan) 10 mg tablet take 1 tablet by mouth three times a day before meals Active cetirizine (ZyrTEC) 10 mg tablet Take 10 mg by mouth in the morning. 0 Active levETIRAcetam (Keppra) 500 mg tablet Take 1 tablet twice a day by oral route. 3 Active glyBURIDE (Diabeta) 5 mg tablet take 2 tablets by mouth twice a day with meals 2 Active busPIRone (Buspar) 10 mg tablet Take 10 mg by mouth in the morning, at noon, and at bedtime. Active Janumet 50-500 mg tablet Take 1 tablet by mouth in the morning and at bedtime. 3 Active famotidine (Pepcid) 40 mg tablet Take 1 tablet by mouth in the morning and at bedtime. Active metoprolol tartrate (Lopressor) 50 mg tabletIndicatio ns:SVT (supraventricul ar tachycardia) Take 1 tablet (50 mg) by mouth two times daily. 180 tablet 3 4 12/20/19 25 Active cholecalciferol , vitamin D3, 50 mcg (2,000 unit) capsule Take 2,000 Units by mouth in the morning. 3 Active cyclobenzaprine (Flexeril) 10 mg tablet take 1 tablet by mouth twice a day if needed for muscle spasm for 15 DAYS 4 Active FeroSuL 325 mg (65 mg iron) tablet Take 1 tablet by mouth in the morning. 4 Active empagliflozin (Jardiance) 25 mg Take 25 mg by mouth in the morning. 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 12/05/2022 Hypoalphalipoproteinemia 12/05/2022 023 Elevated LDL cholesterol level 12/05/2022 1 Migraine 12/05/2022 12/05/2022 Narrowing of intervertebral disc space 3 12/05/2022 Nevus anemicus 12/05/2022 12/05/2022 Disorder of intervertebral disc of cervical spin e 12/05/2022 12/05/2022 Pain of left lower extremity 12/05/202210/2022 Seizures 12/05/2022 12/05/2022 Overview (12/05/2022): Last Assessment & Plan: Stable, on keppra, last seizure 6-7 years ago Skin sensation disturbance 12/05/202212/05 Thyroid adenoma 12/05/2022 12/05/2022 Cobalamin deficiency 12/05/2022 12/05/2022 Atypical chest pain 09/08/2020 History of COVID-19 03/04/2020 12/05/2022 Overview (12/05/2022): Last Assessment & Plan: 02/07/20 asymptomatic on pre op testing Anticoagulated 02/06/2020 12/05/2022 Overview (12/05/2022): Last Assessment & Plan: Assessment: ASA, Eliqutianna. Pt. reports she received instruction. Per 02/05/2020 TELEPHONE: Dr. Spivey(Hematology)- updated/ aware Pt. will be holding Eliquis 3 days before surgery Morbid obesity 02/06/2020 12/05/2022 Overview (12/05/2022): Last Assessment & Plan: Assessment: Body mass index is 41 kg/m . Weight reduction encouraged. 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 Followed by Cardiology Dr. Christy Moreland. Stress test 10/2018, Echo 06/2019 Fatty liver 02/06/2020 12/05/2022 Overview (12/05/2022): Last Assessment & Plan: Assessment: per CT imaging Asymptomatic LifeStyle Modifications encouraged HLD (hyperlipidemia) 02/06/2020 12/05/2022 Overview (12/05/2022): Last Assessment & Plan: Assessment: Medication for Control. Personal history of DVT (deep vein thrombosis) 1 04/08/2019 12/05/2022 Overview (12/05/2022): Last Assessment & Plan: Multiple DVT LLE, s/p IVC filter, on eliquis. Type 2 diabetes mellitus wit hout complication, without long-term current use of insulin 02/06/2020 12/05/2022 Overview (12/05/2022): Last Assessment & Plan: On Janumet. AM sugars 150-210s, last A1c [...] high DOS could be canceled. Patient understands. 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 12/05/2022 Vitamin D insufficiency 08/28/2017 12/06/19 23 Presbyopia 06/15/2017 12/05/2022 Current use of anticoagulant therapy 05/09/2017 12/05/2022 Factor V Leiden 05/09/2017 12/05/2022 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r urbano 05/09/2017 12/05/2022 Mixed hyperlipidemia 05/09/2017 12/05/2022 Neuropathy 05/09/2017 12/05/2022 Partial thickness rotator cuff tear 08/01/2016 12/05/2022 Aneurysm of thoracic aorta 07/04/201612/05 Hypercoagulable state 01/16/2013 12/05/2022 Overview (12/05/2022): Last Assessment & Plan: BMI 41 GERD (gastroesophageal reflux disease) 2 12/05/2022 Overview (12/05/2022): Last Assessment & Plan: Stable, on rx Hereditary coagulation factor deficiency 012 12/05/2022 Headache 06/16/2011 12/05/2022 Simple febrile seizure 06/16/2011 3 Postoperative infection 05/23/2011 12/06/19 23 Overview (12/05/2022): GROIN INFECTION Blood coagulation disorder 03/28/201112/05 Depressive disorder 03/28/2011 12/05/2022 FERNY (generalized anxiety disorder) 03/28/2011 12/05/2022 Heartburn 03/28/2011 12/05/2022 History of cardiovascular disorder 03/28/2011 12/05/2022 Dyspnea on exertion 03/28/2011 12/05/2022 Kidney stone 01/31/2011 12/05/2022 Iron deficiency anemia 01/31/2011 3 Cerebrovascular disease 01/31/2011 12/06/19 23 Overview (12/05/2022): LEFT ILIAC VEIN OCCLUSION Family History Medical History Relation Name Comments Heart failure Mother Valvular heart disease Mother Relation Name Status Comments Mother Social History Tobacco Use Types Packs/Day Years Used Date Smoking Tobacco: Never Smokeless Tobacco: Never Tobacco Cessation:Counseling Given: Not Answered Alcohol Use Standard Drinks/Week Comments Not Currently 0 (1 standard drink = 0.6 oz pur e alcohol) [place] Safety & Environment Answer Date Rec orded Fear of Current or Ex-Partner Not on file Emotionally Abused Not on file 04/20/2023 Physically Abused Not on file 04/20/2023 Sexually Abused Not on file 04/20/2023 Physically or Sexually Abused Not on file Comments Unknown Sex and Gender Information Value Date Recorded Sex Assigned at Not on file Legal Sex Female 10:36 PM EDT Gender Identity Not on file Sexual Orientation Not on file Last Filed Vital Signs Vital Sign Reading Time Taken Comments Blood Pressure 126/84 12/20/2023 10:51 AM EDT Pulse 54 12/20/2023 10:51 AM EDT Temperature 36.6 C (97.9 F) 10/30/2018 10:42 AM EDT Respiratory Rate 20 07/12/2018 3:17 PM EDT Oxygen Saturation 96% 12/20/2023 10:51 AM EDT Inhaled Oxygen Concentration - - Weight 113 kg (250 lb) 12/20/2023 10:51 AM EDT Height 170.2 cm (5' 7 ) 12/20/2023 10:51 AM EDT Body Mass Index 39.16 12/20/2023 10:51 AM EDT Plan of Treatment Upcoming Encounters Date Type Department Care Team (Late st Contact Info) Description 11/06/2024 10:00 AM EDT Office Visit [facility] [address] [place] [address] Dori Duvall CNP [address] [place] [address] 01/01/2025 1:00 PM EST Office Visit [facility] Vascular and Endovascular Surgery [address] [place] [address] Miladis Foster MD [address] [place] [address] Health Maintenance Due Date Last Done Comments CT Colonography 1969 Diabetes: Hemoglobin A1C 1969 FIT-DNA 1969 FIT 1969 FOBT 1969 Sigmoidoscopy 1969 Diabetes: Retinopathy Screening 08/09/1979 Depression Screening 1981 Hepatitis B Vaccines (1 of 3 - 19+ 3-dose series) 1988 Pap Smear 1990 Cervical Cancer Screening 08/09/1999 HPV/Cotest 08/09/1999 Mammogram 11/21/2020 11/21/2018, 11/21/2018 Pneumococcal Vaccine: Pediatrics (0 to 5 Years) and At-Risk Patients (6 to 64 Years) (2 of 2 - PCV) 12/09/2020 12/10/2019 Adult Tetanus 12/11/2021 12/12/2011 Zoster Vaccines (2 of 2) 03/28/2023 01/31/2023 Colonoscopy 04/22/2023 04/22/2013 Colorectal Cancer Screening 04/22/2023 COVID-19 Vaccine ( - season) 2023 12/31/2020, 06/15/2020, 06/15/2020, Additional history exists Influenza Vaccine (#1) 2024 , 12/21/2022, 12/22/2021, Additional history exists Diabetes: Urine Protein Screening 04/18/2025 04/18/2024, 06/28/2023, 07/28/2022 HIB Vaccines Aged Out No longer eligi ble based on patient's age to complete this topic HPV Vaccines Aged Out No longer eligi ble based on patient's age to complete this topic IPV Vaccines Aged Out No longer eligi ble based on patient's age to complete this topic Meningococcal B Vaccine Aged Out No l onger eligible based on patient's age to complete this topic Meningococcal Vaccine Aged Out No hay efarin eligible based on patient's age to complete this topic Rotavirus Vaccines Aged Out No longer eligible based on patient's age to complete this topic Insurance MEDICAID [place] Care Teams Recovery Coach Relationship Specialty Start Date End Date Usman Hannon PA-C PCP - General 12/05/22
--- OUTSIDE RECORDS SUMMARY | 2024-10-30 09:58 | XMS_ITS | Encounter Summary ---
Author Organization [facility] Address [address] [place] [address] Care Team Providers Care Bilingual Counter Sales Retail Name Role Phone ParvezUsman [place] MCKEON Primary Care Provider [phone] Christy Moreland MD Unavailable [phone] Feng Jimenez DO Unavailable [phone] Laxmi Gunter MD Unavailable Source Comments In the event this information is protected by the Federal Confidentiality of Alcohol and Drug AbusePatient Records regulations: The Federal rules restrict any use of the information to criminally investigate or prosecute any alcohol or drug abuse patient.[facility] Encounter Details Date Type Department Care Team (Late st Contact Info) Description 02/19/2023 Get Medical Advice Gastroenterology [address] [place], [place] [phone] Reji Garcia Jr., DO [address] [place] [phone] Appt Social History Tobacco Use Types Packs/Day Years [...] N ot on file 02/02/2020 Data from: https://www.neighborhoodatlas.medicine.[facility]/. Last address used for calculation Not [...] on filedocumented in this encounter Care Teams Bilingual Counter Sales Retail Relationship Specialty Start Date End Date Usman Hannon PA-C PCP - General Internal Medicine 02/06/20 Christy Moreland MD [address] [place] [address] Cardiology 02/06/20 Feng Jimenez DO [address] [place] [address] Internal Medicine 02/06/20 Laxmi Gunter MD [address] [place] [address] Referring Gastroenterology 02/04/23 documented as of this encounter
--- OUTSIDE RECORDS SUMMARY | 2024-10-30 09:58 | XMS_ITS | Encounter Summary ---
Author Organization [facility] [employer] [facility] [employer] Address [id number] [address] [place] [address] Care Team Providers Care Information Technology Analyst Name Role Phone Lewis Adamson MD Primary Care Provider [phone] Reason for Visit * Reason Onset Date Comments Appointment 07/21/2020 Encounter Details Date Type Department Care Team (Late st Contact Info) Description [facility]/21[facility] [address] [place] [address] Alexandra Harris Appointment Social History Tobacco Use Types Packs/Day Years [...] 03/01/2020 How often do you attend chur ch or advent services? More than 4 times per year 03/01/2020 Do you belong to any clubs o r organizations such as tenriism groups, unions, fraternal or athletic groups, or [...] Answer Date Recorded Total Score 16 03/01/2020 [facility] ional Health - [...] encounter Miscellaneous Notes * Telephone Encounter - Alexandra Harris - 07/21/2020 12:53 PM EDT 1st attempt- left voicemail Received Referral from Usman Hannon PA-C Dx: Seizure disorder * Telephone Encounter - Barry Chan - 07/21/2020 12:53 PM EDT Patient schedule 06/11/21 w/ [facility] [place] documented in this encounter Plan of Treatment Upcoming Encounters Date Type Department Care Team (Late st Contact Info) Description 12/11/2024 9:45 AM EDT Office Visit [facility] Internal Medicine/Lewis Adamson MD [address] [phone] Lewis Adamson MD [address] [address] documented as of this encounter Visit Diagnoses Not on filedocumented in this encounter Additional Health Concerns Infection Onset Date Last Indicated Resolved Time MRSA Comment:Abdomen sterile field culture 09/01/11 Infection converted via [employer] utility from [employer] system information 09/06/2011 09/06/201109/28 11:19 PM EDT Assessment Noted Time PHQ-9 Depression Total Score: 16 021 6:18 PM EST A Body Mass Index follow-up plan has been documented for the patient 11/28/2017 11:01 AM EDT documented as of this encounter Care Teams Information Technology Analyst Relationship Specialty Start Date End Date Lewis Adamson MD [address] [id number] PCP - General Internal Medicine 01/04/22 documented as of this encounter
--- OUTSIDE RECORDS SUMMARY | 2024-10-30 09:58 | XMS_ITS | Encounter Summary ---
Author Organization [email or web address] Address [id number] [address] [place] [address] Care Team Providers Care Chemical Sales Representative Name Role Phone Lewis Adamson MD Primary Care Provider [phone] Reason for Visit * Reason Comments Med Change Request Encounter Details Date Type Department Care Team (Late st Contact Info) Description 07/12/2022 Refill [facility]/Lewis Adamson MD [address] [place] [phone] Usman Hannon, PA-C [address] [place] [address] Mixed hyperlipidemia Social History Tobacco Use Types Packs/Day Years [...] declined 04/07/2022 How often do you attend [facility] or mormon services? Patient declined 04/07/2022 Do you belong to any clubs o r organizations such as latter-day groups, unions, fraternal or athletic groups, or [...] 04/07/2022 PHQ-2 Answer Date Recorded Total Score 9 04/07/2022 [facility]at ional Health - [...] Recorded Do you need help finding a [facility] career center and/or a training [...] Telephone Encounter - Usman Hannon PA-C - 07/12/2022 11:29 AM EDT Please call pt. She needs to schedule an appt in [place] or . Transportation often difficult. Overdue for appt, last 12/2021. Needs face to face. Sent 90 days of medications. * Telephone Encounter - Allyson Burks CNA - 07/12/2022 11:29 AM EDT Left pt a message to call back documented in this encounter Plan of Treatment Upcoming Encounters Date Type Department Care Team (Late st Contact Info) Description 12/11/2024 9:45 AM EDT Office Visit [facility]/Lewis Adamson MD [address] [phone] Lewis Adamson MD [address] [phone] documented as of this encounter Visit Diagnoses Diagnosis Mixed hyperlipidemia documented in this encounter Additional Health Concerns Assessment Noted Time PHQ-9 Depression Total Score: 9 04/07/19 23 10:32 AM EST A Body Mass Index follow-up plan has been documented for the patient 09/24/2021 12:55 PM EDT documented as of this encounter Care Teams Chemical Sales Representative Relationship Specialty Start Date End Date Lewis Adamson MD [address] [place] [address] PCP - General Internal Medicine 01/04/22 documented as of this encounter
--- OUTSIDE RECORDS SUMMARY | 2024-10-30 09:58 | XMS_ITS | Clinical Summary ---
Author Organization [facility] Healthcare Address [address] [place] [address] Care Team Providers Care Technical Expert Name Role Phone Unavailable Primary Care Provider Unavailabl e Social History Tobacco Use Types Packs/Day Years Used Date Smoking Tobacco: Never Assessed Comments Unknown Sex and Gender Information Value Date Recorded Sex Assigned at Not on file Legal Sex Female 6:45 PM EDT Gender Identity Not on file Sexual Orientation Not on file Last Filed Vital Signs Vital Sign Reading Time Taken Comments Blood Pressure 122/80 04/25/2017 12:00 PM EST Pulse - - Temperature - - Respiratory Rate - - Oxygen Saturation - - Inhaled Oxygen Concentration - - Weight 113 kg (250 lb) 01/15/2020 12:00 PM EST Height 167.6 cm (5' 6 ) 01/15/2020 12:00 PM EST Body Mass Index 40.35 01/15/2020 12:00 PM EST Plan of Treatment Health Maintenance Due Date Last Done Comments CT Colonography 1969 FIT-DNA 1969 FIT 1969 FOBT 1969 Sigmoidoscopy 1969 Pap Smear 1990 Cervical Cancer Screening 08/09/1999 HPV/Cotest 08/09/1999 Mammogram 11/22/2019 11/21/2018 Colonoscopy 04/22/2023 04/22/2013 Colorectal Cancer Screening 04/22/2023 Influenza Vaccine (#1) 2024 , 12/21/2022, 12/22/2021, Additional history exists Insurance [employer]
--- OUTSIDE RECORDS SUMMARY | 2024-10-30 09:58 | XMS_ITS | Encounter Summary ---
Author Organization [facility] Address [address] [place] [address] Care Team Providers Care Mobile Electronics Installer Name Role Phone Lewis Adamson MD Primary Care Provider [phone] Usman Hannon PA-C Primary Care Provider Reason for Visit * Reason Comments Med Refill Encounter Details Date Type Department Care Team (Late st Contact Info) Description 10/09/2022 Refill [facility] [address] [place] [address] Nathaniel Nguyễn MD [address] [facility] [address] [facility] [place] [address] Palpitations Social History Tobacco Use [...] Description 11/06/2024 10:00 AM EDT Office Visit [facility] [address] [place] [address] Dori Duvall CNP [address] [place] [phone] 01/01/2025 1:00 PM EST Office Visit [facility] V[facility] Endovascular [facility] [address] [facility] [place] [address] Miladis Foster MD [address] [facility] [place] [place] [phone] documented as of this encounter Visit Diagnoses Diagnosis Palpitations documented in this encounter Care Teams Mobile Electronics Installer Relationship Specialty Start Date End Date Lewis Adamson MD PCP - General Internal Medicine 11/11/21 12/04/22 Usman Hannon PA-C PCP - General 12/05/22 documented as of this encounter
--- OUTSIDE RECORDS SUMMARY | 2024-10-30 09:58 | XMS_ITS | Encounter Summary ---
Author Organization [employer] Address [id number] [address] [place] [address] Care Team Providers Care Synchronizer Name Role Phone Lewis Adamson MD Primary Care Provider Reason for Visit * Reason Comments Med Refill Encounter Details Date Type Department Care Team (Late st Contact Info) Description 06/11/2021 Refill [facility] [address] [place] [phone] Usman Hannon, PAMakaylaC [address] [place] [address] Social History Tobacco Use Types Packs/Day Years [...] week 04/06/2021 How often do you attend [facility] or yarsani services? Patient declined 04/06/2021 Do you belong to any clubs o r organizations such as yazdanism groups, unions, fraternal or athletic groups, or [...] Answer Date Recorded Total Score 13 06/11/2021 [facility] Questionnaire Answer Date [...] Recorded In the last 10 days, have yo u been in contact with someone who was confirmed or suspected to have Coronavirus/COVID-19? No / Unsure 06/11/2021 8:43 AM EDT documented as of this encounter Plan of Treatment Upcoming Encounters Date Type Department Care Team (Late st Contact Info) Description 12/11/2024 9:45 AM EDT Office Visit [facility]/Lewis Adamson MD [address] [phone] Lewis Adamson MD [address] [phone] documented as of this encounter Visit Diagnoses Not on filedocumented in this encounter Additional Health Concerns Assessment Noted Time PHQ-9 Depression Total Score: 13 022 8:47 AM EDT A Body Mass Index follow-up plan has been documented for the patient 06/14/2021 12:11 AM EDT documented as of this encounter Care Teams Synchronizer Relationship Specialty Start Date End Date Lewis Adamson MD [address] [phone] PCP - General Internal Medicine 01/04/22 documented as of this encounter
--- OUTSIDE RECORDS SUMMARY | 2024-10-30 09:58 | XMS_ITS | Encounter Summary ---
Author Organization [employer] Address [id number] [address] [place] [address] Care Team Providers Care Mimeographer Name Role Phone Lewis Adamson MD Primary Care Provider [phone] Encounter Details Date Type Department Care Team (Late st Contact Info) Description 02/29/2024 Orders Only [facility]/Lewis Adamson MD [address] [place] [address] Provider, Generic External Data Social History Tobacco Use Types Packs/Day Years [...] often do you attend chur ch or adventism services? Patient declined 04/07/2022 Do you belong to any clubs o r organizations such as sabianist groups, unions, fraternal or athletic groups, or [...] Answer Date Recorded Total Score 16 01/02/2024 [facility] of Occupat ional Health - Occupational Stress [...] [facility]/Lewis Adamson MD [address] [phone] Lewis Adamson MD [address] [phone] documented as of this encounter Procedures Procedure Name Priority Date/Time Associated Diagnosis Comments XR CHEST 1 VW Routine 02/29/2024 1:53 PM EST ECG 12-LEAD Routine 02/29/2024 1:53 PM EST documented in this encounter Results * X-ray chest 1 view (02/29/2024 1:53 PM EST) Anatomical Region Laterality Modality Body, Chest N/A Computed Radiogr aphy us Generic External Data Provider IMG DIAGNOSTIC IM AGING ORDERABLES Final Result * ECG 12 lead (02/29/2024 1:53 PM EST) us Generic External Data Provider ECG ORDERABLES F inal Result MANUALLY TRANSCRIBED RESULTS documented in this encounter Visit Diagnoses Not on filedocumented in this encounter Additional Health Concerns Assessment Noted Time PHQ-9 Depression Total Score: 16 024 12:56 PM EST A Body Mass Index follow-up plan has been documented for the patient 12/19/2023 11:41 AM EDT documented as of this encounter Care Teams Mimeographer Relationship Specialty Start Date End Date Lewis Adamson MD [address] [place] [address] PCP - General Internal Medicine 01/04/22 documented as of this encounter
--- OUTSIDE RECORDS SUMMARY | 2024-10-30 09:58 | XMS_ITS | Encounter Summary ---
Author Organization [employer] Address [id number] [address] [place] [address] Care Team Providers Care Housekeeping Manager Name Role Phone Lewis Adamson MD Primary Care Provider [phone] Reason for Visit * Reason Comments Med Refill Encounter Details Date Type Department Care Team (Late st Contact Info) Description 10/09/2022 Refill [facility] [address] [place] [address] Usman Hannon, PAMakaylaC [address] [place] [address] Social History Tobacco Use Types Packs/Day Years [...] How often do you attend chur or christian services? Patient declined 04/07/2022 Do you belong to any clubs o r organizations such as jew groups, unions, fraternal or athletic groups, or [...] Answer Date Recorded Total Score 0 07/28/2022 [facility] of Occupat ional Health - Occupational [...] Physicians Internal Medicine/Lewis Adamson MD [address] [phone] Lewis Adamson MD [address] [phone] documented as of this encounter Visit Diagnoses Not on filedocumented in this encounter Additional Health Concerns Assessment Noted Time PHQ-9 Depression Total Score: 0 07/29/19 23 10:02 AM EDT A Body Mass Index follow-up plan has been documented for the patient 09/24/2021 12:55 PM EDT documented as of this encounter Care Teams Housekeeping Manager Relationship Specialty Start Date End Date Lewis Adamson MD [address] [phone] PCP - General Internal Medicine 01/04/22 documented as of this encounter
--- OUTSIDE RECORDS SUMMARY | 2024-10-30 09:58 | XMS_ITS | Encounter Summary ---
Author Organization [employer] Address [id number] [address] [place] [address] Care Team Providers Care Internal Affairs Commander Name Role Phone Lewis Adamson MD Primary Care Provider [phone] Reason for Visit * Reason Comments Med Refill Encounter Details Date Type Department Care Team (Late st Contact Info) Description 06/21/2022 Refill [facility]/Lewis Adamson MD [address] [place] [phone] Usman Hannon, PA-C [address] [place] [address] Mixed hyperlipidemia Social History Tobacco Use Types [...] declined 04/07/2022 How often do you attend [facility] or hoahaoism services? Patient declined 04/07/2022 Do you belong [...] Answer Date Recorded Total Score 9 04/07/2022 [facility] of Occupat ional Health - Occupational [...] Recorded Do you need help finding a [facility] career center and/or a training program? [...] Telephone Encounter - Usman Hannon PA-C - 06/21/2022 9:55 AM EDT Pt is due for appt and labs. Lipids last 03/2021, overdue for yearly. Would be happy to see her in [facility]. Schedule am appt fasitng or have her schedule with INTELLIGENCE CLERK at [facility] * Telephone Encounter - Allyson Burks CNA - 06/21/2022 9:55 AM EDT Pt comes next month to be seen documented in this encounter Plan of Treatment Upcoming Encounters Date Type Department Care Team (Late st Contact Info) Description 12/11/2024 9:45 AM EDT Office Visit [facility]/Lewis Adamson MD [address] [phone] Lewis Adamson MD [address] [phone] documented as of this encounter Visit Diagnoses Diagnosis Mixed hyperlipidemia documented in this encounter Additional Health Concerns Assessment Noted Time PHQ-9 Depression Total Score: 9 04/07/19 10:32 AM EST A Body Mass Index follow-up plan has been documented for the patient 09/24/2021 12:55 PM EDT documented as of this encounter Care Teams Internal Affairs Commander Relationship Specialty Start Date End Date Lewis Adamson MD [address] [place] [address] PCP - General Internal Medicine 01/04/22 documented as of this encounter
--- OUTSIDE RECORDS SUMMARY | 2024-10-30 09:58 | XMS_ITS | Encounter Summary ---
Author Organization [employer] Address [id number] [address] [place] [address] Care Team Providers Care Drafter Refrigeration Name Role Phone Lewis Adamson MD Primary Care Provider [phone] Reason for Visit * Reason Comments Med Refill Encounter Details Date Type Department Care Team (Late st Contact Info) Description 08/14/2019 Refill [facility] [address] [place] [address] [place] [address] Carol Wetzel, PREDATORY ANIMAL EXTERMINATOR-SHIP CARPENTER [address] [facility] [address] [place], [place] [phone] Neuropathy Social History Tobacco Use Types Packs/Day [...] have Coronavirus / COVID-19? No / Unsure 07/18/2019 2:36 PM EDT documented as of this encounter Miscellaneous Notes * Telephone Encounter - MICHAELLE Farris - 08/14/2019 1:28 PM EDT Your pt now * Telephone Encounter - Usman Hannon PA-C - 08/14/2019 1:28 PM EDT Pt had Telephone office visit . UTD on appt. Will need to be seen 09/2019. documented in this encounter Plan of Treatment Upcoming Encounters Date Type Department Care Team (Late st Contact Info) Description 12/11/2024 9:45 AM EDT [facility]Lewis Adamson MD [address] [phone] Lewis Adamson MD [address] [phone] documented as of this encounter Visit Diagnoses Diagnosis Neuropathy Mononeuritis of unspecified site documented in this encounter Additional Health Concerns Infection Onset Date Last Indicated Resolved Time MRSA Comment:Abdomen sterile field culture 09/01/11 Infection converted via [employer] from [employer] system information 09/06/2011 09/06/201109/28 11:19 PM EDT Assessment Noted Time PHQ-9 Depression Total Score: 14 019 11:00 AM EDT A Body Mass Index follow-up plan has been documented for the patient 11/28/2017 11:01 AM EDT documented as of this encounter Care Teams Drafter Refrigeration Relationship Specialty Start Date End Date Lewis Adamson MD [address] [address] PCP - General Internal Medicine 01/04/22 documented as of this encounter
--- OUTSIDE RECORDS SUMMARY | 2024-10-30 11:23 | XMS_ITS | CCD ---
Author Organization [facility] Care Team Providers Care 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 Name Role Phone SELF, REFERRED Referring Unavailable SELF, REFERRED Primary Care Unavailable UNKNOWN, PROVIDER Attending Unavailable UNKNOWN, PROVIDER Admitting Unavailable Cece Hannon Primary Care Provider Christy Moreland Unavailable Barbara HARRINGTON Feng P Unavailable Adan Julio Unavailable Shiva Garcia Unavailable CECE HANNON Primary Care Physician [phone] LINDA Hannon Primary Care Provider [phone] MD Yanni Nassar Attending Provider LAYNE SANTANA Admitting Unavailable LAYNE SANTANA Attending Unavailable MIZE, DR SHIVA Hughes Consulting Unavailable [facility], DR VAUGHN Primary Care Unavailable LAYNE SANTANA Consulting Unavailable LINDA Hannon Primary Care Provider [phone] MD Yanni Nassar Attending Provider [phone] DELORIS Alvarez Emergency Provider [phone] Cece Hannon Primary Care Provider [phone] Christy Moreland Unavailable [phone] Barbara HARRINGTON Feng P Unavailable Tom Torres Unavailable LINDA Hannon Primary Care Provider MD Dennis Clark Emergency Provider [phone] Asaad, Imad Unavailable Cece Hannon PA-C Primary Care Provider Aniceto COLÓN, Christy Valdivia Unavailable Jani COLÓN, Imad Unavailable LINDA Hannon Primary Care Provider MD Adan Julio Attending Provider Cece Hannon PA-C Primary Care Provider Adan Julio Admitting Unavailable Adan Julio Attending Unavailable Cece Hannon Primary Care Unavailable Cece Hannon Primary Care Unavailable Dennis Clark Admitting Unavailable Dennis Clark Attending Unavailable MARTINE BOWLING Attending Unavailable MARTINE BOWLING Referring Unavailable CECE HANNON Primary Care Unavailable QUILESVERONICA Alvarado Referring Unavailable CECE HANNON Primary Care Unavailable BOY SESAY Attending Unavailable HAIDER ADAMSON Referring Unavailable ARACELIS HAIDER Primary Care Unavailable YAS NGUYỄN Attending Unavailable LAYNE SANTANA Attending Unavailable Cece Hannon PA-C Primary Care Provider Haider Adamson MD Primary Care Provider CAROL COTTRELL Attending Unavaila ble CECE HANNON Referring Unavailable CECE HANNON Primary Care Unavailable MARTINE BOWLING Attending Unavailable CECE HANNON Referring Unavailable HANNONVINAYA [place] Primary Care Unavailable QUILESVERONICA Alvarado Referring Unavailable CECE HANNON Primary Care Unavailable MARTINE BOWLING Referring Unavailable CECE HANNON Primary Care Unavailable MARTINE BOWLING Attending Unavailable CECE HANNON Primary Care Unavailable SIENNA, CHECO Referring Unavailable HANNON CECE N Primary Care Unavailable STEF MICHELE Attending Unavailable ANGÉLICA ALLRED Referring Unavailable HANNONCECE RODRIGUEZ Primary Care Unavailable KAMARIU, CHECO Referring Unavailable VINAY HANNONA [place] Primary Care Unavailable GARDENIA GUPTA Attending Unavailable ANGÉLICA ALLRED Referring Unavailable HANNONCECE RODRIGUEZ Primary Care Unavailable VERONICA QUILES Attending Unavailable CECE HANNON Referring Unavailable HANNON, CECE [place] Primary Care Unavailable NONE, XXXX Referring Unavailable MD Yanni Nassar Admitting Unavailable MD Yanni Nassar Attending Unavailable MD Yanni Nassar Attending Unavailable MD Yanni Nassar Referring Unavailable MD Yanni aNssar Admitting Unavailable Narra Haider COLÓN Primary Care Provider [phone] MARTINE BOWLING Referring Unavailable HANNON, CECE N Primary Care Unavailable HANNONCECE RODRIGUEZ Referring Unavailable NARRA, HAIDER Primary Care Unavailable HANNONCECE Attending Unavailable NARRA, HAIDER Referring Unavailable NARRA, HAIDER Primary Care Unavailable HANNONCECE Attending Unavailable NARRA, HAIDER Referring Unavailable NARRA, HAIDER Primary Care Unavailable HANNONCECE Attending Unavailable NARRA, HAIDER Referring Unavailable NARRA, HAIDER Primary Care Unavailable HANNONCECE Attending Unavailable NARRA, HAIDER Referring Unavailable NARRA, HAIDER Primary Care Unavailable Kevin Gracia Attending Unavailable NARRA, HAIDER Primary Care Unavailable Darin Murphy Attending Unavailable NARRA, HAIDER Primary Care Unavailable Kashk, Nehemiah I Admitting Unavailable Kashk, Nehemiah I Attending Unavailable NARRA, HAIDER Primary Care Unavailable Le Melvin K Admitting Unavailable Le, Melvin K Attending Unavailable NARRA, HAIDER Primary Care Unavailable Hannon PAC, Cece Coleman Attending Unavailable Hannon PAC, Cece N Primary Care Unavailable Hannon PAC, Cece N Admitting Unavailable Hannon PAC, Cece N Primary Care Unavailable Hannon PAC, Cece N Admitting Unavailable Hannon PAC, Cece N Attending Unavailable Hannon PAC, Cece N Primary Care Unavailable Adan Julio Admitting Unavailab Adan Hunt Attending Unavailab le NARRA, HAIDER Primary Care Unavailable Adan Julio Admitting Unavailab Adan Hunt Attending Unavailab Luis Eduardo Cowan Admitting Unavailable Luis Eduardo Rivero Attending Unavailable NARRA, HAIDER Primary Care Unavailable Allergies Allergy Classification Reported Allergen(s) Allergy Type Date of Onset Reaction(s) Facility Aspirin (3 sources) Aspirin Drug Allergy Unknown [facility] Cephalosporins (antibiotic) (6 sources) Cephalexin; Translations: [cephalexin] Drug Allergy 06-11-19 10 Hives [facility] Repository heparin (3 sources) heparin; Translations: [heparin] Drug Allergy 08-19-19 11 Unknown Reaction [facility] Repository NSAIDs (1 source) NSAIDs; Translations: [NSAIDS (NON-STEROIDAL ANTI-INFLAMMATORY DRUG)] Drug Allergy 06-20-19 19 [facility] Repository Penicillins (antibiotic) (6 sources) Penicillins; Translations: [Penicillins] Drug Allergy 06-11-19 10 Hives [facility] Repository (20 sources) Aspirin; Translations: [ASPIRIN] Drug Allergy Unknown [facility] (20 sources) Cephalexin; Translations: [cephalexin] Drug Allergy 02-07-20 10 Hives, Other (See Comments) [facility] Work Phone: (20 sources) Penicillin G; Translations: [PENICILLIN G] Drug Allergy 02-07-20 10 [facility] Work Phone: (20 sources) Heparin Analogues; Translations: [HEPARIN ANALOGUES] Drug Allergy 12-22-19 12 Unknown [facility] (10 sources) heparin Drug Allergy Unknown [facility] [employer] Other (10 sources) penicillAMINE Drug Allergy [facility] [employer] Other (17 sources) Penicillin; Translations: [penicillin] Drug Allergy Unknown, [facility] (11 sources) Heparin Combination Drug allergy Unknown [facility] [employer] Other (7 sources) Cephalexin; Translations: [Keflex] Drug Allergy 02-27-18 71 hives [facility] Repository (20 sources) heparin; Translations: [heparin] Drug Allergy 05-10-19 18 unknonwn, Unknown Reaction [facility] (20 sources) Penicillins; Translations: [PENICILLINS] Allergy to substance 02-07-20 10 Hives, Other (See Comments) [facility] (1 source) heparin Drug Allergy 08-28-19 09 [facility] Repository (1 source) Penicillin Drug Allergy 02-27-18 71 [facility] Repository (15 sources) heparin; Translations: [HEPARIN (PORCINE)] Drug Allergy 02-15-20 14 Other (See Comments) [facility] Repository (1 source) NSAIDs; Translations: [NSAIDs] Propensity to adverse reactions to drug (disorder) [facility] Repository Medications Current Medications Medication Drug Class(es) Dates Sig (Normalized) Sig (Original) [id number] 200 actuat albuterol 0.09 mg/actuat metered dose inhaler (20 sources) beta2-Adrenergic Agonist Start: 11-06-2018 take 2 puff(s) by mouth four times daily for wheezing VENTOLIN HFA 90 mcg/actuation inhaler inhale 2 puffs by mouth four times a day if needed for wheezing or shortness of breath 18 g 3 11/06/2018 Active Start: 11-06-2018 albuterol HFA (PROVENTIL HFA, VENTOLIN HFA) 90 mcg/actuation inhaler Ventolin HFA 90 mcg/actuation aerosol inhaler 11/06/2018 Active Start: 11-06-2018 albuterol HFA (PROVENTIL HFA, VENTOLIN HFA) 90 mcg/actuation inhaler Ventolin HFA 90 mcg/actuation aerosol inhaler 0 11/06/2018 Active Start: 07-30-2009 Start: 07-30-2009 take 2 puff(s) by in halation in the morning albuterol (PROVENTIL HFA;VENTOLIN HFA) 90 mcg/actuation inhaler Inhale 2 puffs in the morning and 2 puffs before bedtime. Active Comment on above: Ventolin HFA 90 mcg/ actuation aerosol inhaler apixaban 2.5 mg oral tablet (20 sources) Factor Xa Inhibitor Start: 06-13-2017 End: 06-10-2025 take 1 tablet by mouth in the morning, then take 1 tablet by mouth at bedtime apixaban (ELIQUIS) 2.5 mg tablet Take 1 tablet (2.5 mg total) by mouth in the morning and 1 tablet (2.5 mg total) before bedtime. 04/23/2018 Active take 1 tablet by mouth every twe lve hours Eliquis 5 MG 1 tablet Orally bid Active Comment on above: Take 1 tablet by jan th twice daily. take 1 tablet by jan th twice a day Take 1 tablet by jan th two times a day. Aspir-81 81 MG (9 sources) take 1 tablet by mouth once daily Aspir-81 81 MG 1 tablet Orally Once a day Active aspirin 81 mg oral tablet (20 sources) Platelet Aggregation Inhibitor, Nonsteroidal Anti-inflammatory Drug Start: 09-20-2019 take 1 tablet by mouth once daily aspirin 81 mg oral tablet 81 mg = 1 tab(s), Oral, Daily, Refills(s) 0 Start Date: 09/20/19 Status: Ordered Repeat number: 1 Start: 06-13-2017 End: 01-18-2021 take 1 tablet by mouth once daily aspirin 81 mg Indications: Coronary artery disease involving [place] coronary artery of [place] heart without angina pectoris Take 1 tablet (81 mg total) by mouth daily. 90 tablet 3 11/28/2017 Active aspirin 81 mg ch ewable tablet q 24 HR. Active Comment on above: q 24 HR. atorvastatin 40 mg oral tablet (20 sources) HMG-CoA Reductase Inhibitor Start: take 1 tablet by mouth in the morning atorvastatin (LIPITOR) 40 mg tablet Indications: Mixed hyperlipidemia TAKE ONE TABLET BY MOUTH IN THE MORNING 90 tablet 1 09/11/2024 Active Start: 06-13-2017 End: 09-11-2024 take 1 tablet by mouth in the morning atorvastatin (LIPITOR) 40 mg tablet Indications: Mixed hyperlipidemia Take 1 tablet (40 mg total) by mouth in the morning. 90 tablet 3 11/13/2023 09/11/2024 Discontinued Lipitor Active Comment on above: Take 40 mg by mouth once daily. azithromycin 250 mg oral tablet (2 sources) Macrolide Antimicrobial Start: 04-18-19 End: 04-23-19 azithromycin (ZITHROMAX) 250 mg tablet Take 2 tablets the first day, then 1 tablet daily for 4 days. 6 tablet 04/18/2024 04/23/2024 Active benzonatate 200 mg oral capsule (2 sources) Non-narcotic Antitussive Start: 04-18-19 End: 04-29-19 take 1 capsule by mouth three times daily as needed for cough benzonatate (TESSALON PERLES) 200 mg capsule Take 1 capsule (200 mg total) by mouth 3 (three) times a day as needed for cough for up to 10 days. 30 capsule 04/18/2024 04/28/2024 Active blood-glucose meter (ONETOUCH ULTRA2 METER) misc (12 sources) Start: 02-26-20 blood-glucose meter (ONETOUCH ULTRA2 METER) [facility] USE TO CHECK GLUCOSE TWICE DAILY 1 each 02/26/2024 Active busPIRone hydrochloride 10 mg oral tablet (20 sources) Start: 01-04-20 End: 04-18-19 25 take 1 tablet by mouth three times daily busPIRone (BUSPAR) 10 mg tablet Indications: FERNY (generalized anxiety disorder) Take 1 tablet (10 mg total) by mouth 3 (three) times a day. 90 tablet 5 04/18/2024 Active Start: 09-20-2019 take 1 tablet by jan th every eight hours busPIRone 15 mg Tab 15 mg = 1 tab(s), Oral, q8hr, Refills(s) 0 Start Date: 09/20/19 Status: Ordered Repeat number: 1 Start: 11-05-2018 End: 08-02-2023 take [id number] tablet by mouth three times daily busPIRone HCl 30 mg tablet take 1/3 tablet by mouth three times a day 0 11/05/2018 08/02/2023 Discontinued Start: 06-13-2017 End: 10-03-2023 take 1 tablet by mouth three times daily busPIRone (BUSPAR) 10 mg tablet Take 10 mg by mouth three times a day. 0 06/13/2017 10/03/2023 Active Start: 06-13-2017 End: 07-25-2023 take 1 tablet by mouth twice daily Buspirone 10 mg Tablet Discontinued 10 MG PO Twice daily June 12, 2017 11:00pm July 25, 2023 6:10am Comment on above: take 1/3 tablet by m out three times a day cetirizine hydrochloride 10 mg oral tablet (20 sources) Histamine-1 Receptor Antagonist Start: 09-12-19 take 1 tablet by mouth in the morning cetirizine (ZyrTEC) 10 mg tablet Indications: Allergic rhinitis Take 1 tablet (10 mg total) by mouth in the morning for 30 days. 30 tablet 5 07/28/2022 Active Comment on above: Take 10 mg by mouth. cholecalciferol 0.05 mg oral capsule (18 sources) Vitamin D Start: 12-28-19 23 take 1 capsule by mouth once in the morning cholecalciferol, vitamin D3, (VITAMIN D3) 2,000 units capsule Indications: Vitamin D insufficiency Take 1 capsule (2,000 Units total) by mouth in the morning. 90 capsule 3 12/27/2022 Active Start: 01-18-2021 take 1 capsule by mo [facility] once daily Cholecalciferol (Vitamin D3) (Vitamin D3) 25 mcg (1,000 unit) Capsule Active 25 MCG PO Daily January 18, 2021 12:00am Colestipol (18 sources) Bile Acid Sequestrant Start: 01-06-2022 take 1 tablet by mouth once daily colestipol 1 g oral tablet 1 gm = 1 tab(s), Oral, Daily Start Date: 01/06/22 Status: Ordered Repeat number: 1 Start: 01-06-2022 take 1 tablet by [facility] once daily colestipol 1 g oral tablet 1 gm = 1 tab(s), Oral, Daily Start Date: 01/06/22 Status: Ordered Start: 07-13-2021 End: 07-25-2023 Colestipol 1 gram tablet Discontinued 1 GM PO Daily July 12, 2021 11:00pm July 25, 2023 6:10am Start: 03-31-2021 End: 03-25-2022 colestipol (COLESTID) 1 gram tablet Take 2 g by mouth. 0 03/31/2021 03/25/2022 Discontinued Start: 02-04-2021 take 2 tablets by [facility] every twenty-four hours Colestipol HCl 1 GM 2 tablets Orally Once a day for 30 days Jan, Active Comment on above: Take 2 g by mouth. Comp.Stocking,Thigh,Long ,X-Lrg misc (20 sources) Start: 11-16-19 Comp.Stocking,Thigh,Zaki g,X-Lrg misc Wear stocking daily 1 Each 0 11/16/2015 Active Comment on above: Wear stocking daily cyclobenzaprine hydrochloride 10 mg oral tablet (2 sources) Muscle Relaxant Start: 10-11-19 take 1 tablet by mouth twice daily as needed for muscle spasms Cyclobenzaprine 10 mg tablet Active 10 MG PO Twice daily as needed for muscle spasm October 10, 2023 11:00pm Start: 11-09-2022 take 0.5-1 tablets b y mouth every eight hours Cyclobenzaprine HCl 10 MG 1/2 to 1 tablet Orally Every 8 hours for 14 days Oct, Active desvenlafaxine 100 mg oral tablet (3 sources) Serotonin and Norepinephrine Reuptake Inhibitor Start: 02-19-2010 take 1 tablet by mouth once daily Pristiq 100 mg oral tablet, extended release 100 mg = 1 tab(s), Oral, Daily, tab(s), Refills(s) 0 Start Date: 02/19/10 Status: Ordered Repeat number: 1 Start: 02-19-2010 take 1 tablet by jan th once daily Pristiq 100 mg oral tablet, extended release 100 mg = 1 tab(s), Oral, Daily, tab(s), Refills(s) 0 Start Date: 02/19/10 Status: Ordered empagliflozin 25 mg oral tablet (17 sources) Sodium-Glucose Cotransporter 2 Inhibitor Start: 09-11-2024 take 1 tablet by mouth once daily in the morning empagliflozin (JARDIANCE) 25 mg tablet tablet TAKE ONE TABLET BY MOUTH EVERY MORNING 90 tablet 1 09/11/2024 Active Start: 01-04-2024 End: 06-27-2025 take 1 tablet by mouth once daily in the morning empagliflozin (JARDIANCE) 25 mg tablet tablet Take 1 tablet (25 mg total) by mouth every morning for 360 days. TAKE 1 TABLET BY MOUTH IN THE MORNING FOR 90 DAYS 90 tablet 3 07/02/2024 09/11/2024 Discontinued enteric contrast (will be provided with radiology test) (20 sources) Start: 03-25-[address] (will be provided with radiology test) For CT ABD/PEL W IVCON Routine order Administer, As Directed One Time Only, via Oral, Rectal, both Oral and Rectal, Enteric Tube, Stoma or Indwelling Catheter, Enteric Contrast as designated per enteric contrast guidelines 1 Each 03/25/2022 Active Start: 03-25-[address] (will be provided with radiology test) For CT ABD/PEL W IVCON Routine order Administer, As Directed One Time Only, via Oral, Rectal, both Oral and Rectal, Enteric Tube, Stoma or Indwelling Catheter, Enteric Contrast as designated per enteric contrast guidelines 1 Each 0 03/25/2022 Active Comment on above: For CT ABD/PEL W IVC ON Routine order Administer, As Directed One Time Only, via Oral, Rectal, both Oral and Rectal, Enteric Tube, Stoma or Indwelling Catheter, Enteric Contrast as designated per enteric contrast guidelines fluconazole 150 mg oral tablet (1 source) Azole Antifungal Start: 5 End: take 1 tablet by mouth once fluconazole (DIFLUCAN) 150 mg tablet Take 1 tablet (150 mg total) by mouth once for 1 dose. 1 tablet 08/27/2024 08/27/2024 Active fluticasone furoate 0.0275 mg/actuat metered dose nasal spray (20 sources) Corticosteroid Start: Fluticasone Furoate 27.5 mcg/actuation nasal spray fluticasone Fluticasone Furoate Active 1 SPRAY Intranasal Daily June 13, 2017 7:29am 06-13-2017 [facility] ([id number]) 06/13/2017 Active Start: 06-13-2017 Fluticasone Fu roate 27.5 mcg/actuation [place],Suspension Active 1 SPRAY INTRANASAL Daily as needed for Allergy Symptoms June 12, 2017 11:00pm Comment on above: fluticasone Fluticas one Furoate Active 1 SPRAY Intranasal Daily June 13, 2017 7:29am 06-13-2017 [facility] ([id number]) Fluticasone Furoate 27.5 MCG/SPRAY (9 sources) take 1 puff(s) nasal route once daily as needed Fluticasone Furoate 27.5 MCG/SPRAY 1 puff in each nostril Nasally Once a day PRN Active take 1 puff(s) nasal route once daily Fluticasone Furoate 27.5 MCG/SPRAY 1 puff in each nostril Nasally Once a day Active glipiZIDE (7 sources) Sulfonylurea glipiZIDE Active glyBURIDE 5 mg oral tablet (20 sources) Sulfonylurea Start: 09-10-2024 glyBURIDE (GRANT BETA) 5 mg tablet 1 before breakfast and 2 before dinner 90 tablet 5 09/10/2024 Active Start: 11-13-2023 End: 05-11-2024 take 2 tablets by mouth in the morning, then take 2 tablets by mouth at mealtime glyBURIDE (DIABETA) 5 mg tablet Take 2 tablets (10 mg total) by mouth in the morning and 2 tablets (10 mg total) in the evening. Take with meals. Do all this for 180 days. 360 tablet 1 11/13/2023 05/11/2024 Active Start: 05-04-2021 take 2 tablets by mo ut twice daily at mealtime glyBURIDE (DIABETA) 5 mg tablet take 2 tablets by mouth twice a day with meals 0 05/04/2021 Active Start: 01-18-2021 take 1 tablet by jan th at mealtime, then take 3 tablets by mouth once daily glyBURIDE (DIABETA) 5 mg tablet Take 5 mg by mouth. Takes 1 tablet with each small meal. Usually about 3 per day 05/04/2021 Active Start: 10-01-2020 take 1 tablet by jan th twice daily before mealtime glyBURIDE 2.5 mg Tab 2.5 mg = 1 tab(s), Oral, BID, before meals, # 30 tab(s), Refills(s) 0 Start Date: 10/01/20 Status: Ordered Quantity: 30.0 Unit: tab(s) Repeat number: 1 Start: 10-01-2020 take 1 tablet by mouth once [facility] glyBURIDE 2.5 mg Tab 2.5 mg = 1 tab(s), Oral, Daily, # 30 tab(s), Refills(s) 0 Start Date: 10/01/20 Status: Ordered Quantity: 30.0 Unit: tab(s) Repeat number: 1 glyBURIDE Active Comment on above: take 2 tablets by mo [facility] twice a day with meals 12 hr guaiFENesin 600 mg extended release oral tablet (2 sources) Start: End: 5 take 1 tablet by mouth once guaiFENesin (MUCINEX) 600 mg tablet extended release 12hr Indications: Type 2 diabetes mellitus without complication, without long-term current use of insulin ([facility] [place]) Take 1 tablet (600 mg total) by mouth every 12 (twelve) hours for 10 days. 20 tablet 04/18/2024 04/28/2024 Active insulin glargine 100 unt/ml injectable solution (7 sources) Insulin Analog Start: 5 inject 0.14 mL by subcutaneous injection once daily insulin glargine (LANTUS U-100 INSULIN) 100 unit/mL injection Inject 0.14 mL (14 Units total) under the skin nightly. 10 mL 1 09/10/2024 Active Start: 08-27-2024 End: 09-10-2024 inject 0.12 mL by subcutaneous injection once daily insulin glargine (LANTUS U-100 INSULIN) 100 unit/mL injection Inject 0.12 mL (12 Units total) under the skin nightly. 10 mL 1 08/27/2024 09/10/2024 Discontinued (Reorder) Start: 06-24-2024 inject 10 [IU] by wolf bcutaneous injection once daily at bedtime Lantus 10 unit(s), SubCutaneous, Daily, at bedtime, Refills(s) 0 Start Date: 06/24/24 Status: Ordered Repeat number: 1 Start: 04-18-2024 End: 05-18-2024 inject 0.1 mL by subcutaneous injection once daily insulin glargine (LANTUS U-100 INSULIN) 100 unit/mL injection Inject 0.1 mL (10 Units total) under the skin nightly for 30 days. 10 mL 1 04/18/2024 05/18/2024 Active iv contrast (will be provide d with radiology test) (20 sources) Start: 03-25-2022 iv contrast (w ill be provided with radiology test) CT ABD/PEL [...] CT contrast administration guidelines link. 1 Each 03/25/2022 Active Start: 03-25-2022 iv contrast (w ill be provided with radiology test) CT ABD/PEL [...] CT contrast administration guidelines link. 1 Each 0 03/25/2022 Active Comment on above: CT ABD/PEL -Inject, intravenously, once for 1 [...] in the CT contrast administration guidelines link. 24 hr levETIRAcetam 500 mg extended release oral tablet (20 sources) Start: 01-04-20 24 take 3 tablets by mouth once daily levETIRAcetam XR (KEPPRA XR) 500 mg 24 hr tablet Indications: Seizure disorder (CMS-HCC) Take 3 tablets (1,500 mg total) by mouth nightly. 90 tablet 11 01/04/2024 Active Start: 07-24-2018 take 1 tablet by jan th once daily at bedtime levETIRAcetam XR (KEPPRA XR) 500 mg 24 hr tablet Take 1,500 mg by mouth daily at bedtime. 07/24/2018 Active Start: 07-24-2018 take 1 tablet by jan th twice daily levETIRAcetam XR (KEPPRA XR) 500 mg 24 hr tablet Take 500 mg by mouth twice daily. 0 07/24/2018 Active Start: 06-13-2017 take 1 tablet by jan th every twelve hours Levetiracetam (Keppra) 500 mg Tablet Active 500 MG PO Q12H June 12, 2017 11:00pm Start: 07-28-2009 take 1000 mg by mout h at bedtime Keppra 1,000 mg, Oral, Bedtime, Refills(s) 0 Start Date: 07/28/09 Status: Ordered Repeat number: 1 Start: 07-28-2009 take 500 mg by mouth twice daily Keppra 500 mg, Oral, BID, Refills(s) 0 Start Date: 07/28/09 Status: Ordered Repeat number: 1 Comment on above: Take 500 mg by mouth twice daily. lubiprostone 0.008 mg oral capsule (20 sources) Chloride Channel Activator Start: 08-02-19 24 take 1 capsule by mouth twice daily at mealtime lubiprostone (AMITIZA) 8 mcg capsule Indications: Irritable bowel syndrome with both constipation and diarrhea Take 1 capsule by mouth two times a day with meals. 60 capsule 5 08/02/2023 Active metoclopramide 10 mg oral tablet (4 sources) Dopamine-2 Receptor Antagonist Start: 01-07-20 22 take 1 tablet by mouth once daily metoclopramide 10 mg Tab 10 mg = 1 tab(s), Oral, Daily Start Date: 01/06/22 Status: Ordered Repeat number: 1 take 1 tablet by jan th every twelve hours Metoclopramide HCl 10 MG 1 tablet before meals Orally Twice a day Active 24 hr metoprolol succinate 25 mg extended release oral tablet (20 sources) beta-Adrenergic Bhavna Start: 01-06-2022 take 1 tablet by mouth twice daily metoprolol 25 mg ER Tab 25 mg = 1 tab(s), Oral, BID Start Date: 01/06/22 Status: Ordered Repeat number: 1 Start: 05-10-2021 take 2 tablets by mo [facility] in the morning, then take 2 tablets by mouth at bedtime metoprolol tartrate (LOPRESSOR) 25 mg tablet Take 2 tablets (50 mg total) by mouth in the morning and 2 tablets (50 mg total) before bedtime. 05/10/2021 Active Start: 06-13-2017 End: 08-09-2023 take 1 tablet by mouth twice daily Metoprolol Tartrate 25 mg Tablet Active 25 MG PO Twice daily June 12, 2017 11:00pm take 1 tablet by jan th twice daily metoprolol tartrate, short acting, (LOPRESSOR) 50 mg tablet Take 50 mg by mouth two times a day. Active Comment on above: twice daily. Multi For Her (1 source) Multi For Her Ac tive Multi Vitamins oral tablet (4 sources) Start: 07-30-2009 take 1 tablet by mouth once daily Multi Vitamins oral tablet 1 tab(s), Oral, Daily, Refill(s) 0 Start Date: 07/30/09 Status: Ordered Repeat number: 1 Start: 07-30-2009 Multi Vitamins oral tablet 1 tab(s), Oral, Daily, 0 Start Date: 07/30/09 Status: Ordered Multivitamins ORAL Chew (20 sources) Multivitamins OR AL Chew None Entered Active Multivitamins OR AL Chew None Entered 0 Active Comment on above: None Entered nitrofurantoin, macrocrystals 25 mg / nitrofurantoin, monohydrate 75 mg oral capsule (1 source) Nitrofuran Antibacterial Start: 08-28-19 End: 09-04-19 take 1 capsule by mouth in the morning, then take 1 capsule by mouth at bedtime nitrofurantoin, macrocrystal-monohyd rate, (MACROBID) 100 mg capsule Take 1 capsule (100 mg total) by mouth in the morning and 1 capsule (100 mg total) before bedtime. Do all this for 7 days. 14 capsule 08/27/2024 09/03/2024 Active pantoprazole 40 mg delayed release oral tablet (20 sources) Proton Pump Inhibitor Start: 08-22-19 End: 09-21-19 take 1 tablet by mouth twice daily pantoprazole DR (PROTONIX) 40 mg tablet Take 1 tablet by mouth two times a day. 60 tablet 08/22/2023 Active Start: 02-14-2023 End: 07-25-2023 take 1 tablet by mouth once daily Pantoprazole (Protonix) 20 mg tablet,delayed release (DR/EC) Discontinued 20 MG PO Daily February 14, 2023 12:00am July 25, 2023 6:10am Start: 02-04-2021 End: 03-25-2022 take 1 tablet by mouth every twelve hours Pantoprazole Sodium 40 MG 1 tablet Orally BID for 30 days Jan, Active Start: 09-30-2019 End: 07-13-2021 take 1 tablet by mouth once daily Pantoprazole 40 mg tablet,delayed release (DR/EC) Discontinued 40 MG PO Daily May 25, 2020 11:00pm July 13, 2021 6:11am Comment on above: Take 40 mg by mouth. phenazopyridine hydrochloride 200 mg oral tablet (1 source) Start: 08-28-19 End: 08-30-19 take 1 tablet by mouth three times daily as needed for muscle spasms phenazopyridine (PYRIDIUM) 200 mg tablet Take 1 tablet (200 mg total) by mouth 3 (three) times a day as needed for bladder spasms for up to 2 days. 6 tablet 08/27/2024 08/29/2024 Active sucralfate 1000 mg oral tablet (20 sources) Aluminum Complex Start: 08-22-19 End: 09-21-19 take 1 tablet by mouth twice daily sucralfate (CARAFATE) 1 gram tablet Take 1 tablet by mouth two times a day. 60 tablet 0 08/22/2023 09/21/2023 Active Start: 02-14-2023 End: 07-25-2023 take 1 tablet by mouth twice daily Sucralfate (Carafate) 1 gram Tablet Discontinued 1 GM PO Twice daily 14 February 14, 2023 12:00am July 25, 2023 6:11am Start: 06-25-2020 take 1 tablet by jan th every six hours Sucralfate 1 GM 1 tablet on an empty stomach Orally qid for 30 day(s) May, Active Start: 05-26-2020 End: 07-13-2021 take 1 tablet by mouth twice daily Sucralfate (Carafate) 1 gram tablet Discontinued 1 GM PO Twice daily May 25, 2020 11:00pm July 13, 2021 6:12am tiZANidine 2 mg oral tablet (20 sources) Central alpha-2 Adrenergic Agonist Start: 03-21-2022 take 1 tablet by mouth every eight hours as needed tiZANidine (ZANAFLEX) 2 mg tablet Take 2 mg by mouth every 8 hours as needed (neck pain). 03/21/2022 Active Start: 02-21-2018 End: 10-09-2019 take 1 tablet by mouth twice daily Tizanidine 4 mg tablet Discontinued 4 MG PO Twice daily February 21, 2018 12:00am October 09, 2019 2:32pm vitamin B12 (7 sources) Vitamin B12 Vitamin B12 Acti ve Vitamin D (7 sources) Vitamin D Active Completed/Discontinued Medications Medication Drug Class(es) Dates Sig (Normalized) Sig (Original) acetaminophen 325 mg / HYDROcodone bitartrate 5 mg oral tablet (5 sources) Opioid Agonist Start: 02-10-2022 End: 07-05-2023 take 1 tablet by mouth twice daily as needed for pain Hydrocodone-Acetam inophen 5-325 mg tablet Discontinued 1 TAB PO Twice daily as needed for pain 6 February 10, 2022 July 05, 2023 9:50am amylase 298410 unt / lipase 95434 unt / protease [id number] unt delayed release oral capsule (2 sources) Start: 01-29-2020 End: 03-25-2022 take 1 capsule by mouth three times daily at mealtime ZENPEP 40,000-126,000- 168,000 unit cpDR take 1 capsule by mouth three times a day with meals 0 01/29/2020 03/25/2022 Discontinued Comment on above: take 1 capsule by mo ut three times a day with meals calcium chloride 0.0014 meq/ml / potassium chloride 0.004 meq/ml / sodium chloride 0.103 meq/ml / sodium lactate 0.028 meq/ml injectable solution (1 source) Start: 08-22-2023 End: 08-22-2023 lactated ringers iv infusion 200 ml ciprofloxacin 2 mg/ml injection (1 source) Quinolone Antimicrobial Start: 08-22-2023 End: 08-22-2023 ciprofloxacin iv piggyback 400 mg in D5W 200 mL (CIPRO) dicyclomine hydrochloride 20 mg oral tablet (13 sources) Anticholinergic Start: 05-26-2020 End: 07-25-2023 take 1 tablet by mouth four times daily Dicyclomine 20 mg tablet Discontinued 20 MG PO Four times daily May 25, 2020 11:00pm July 25, 2023 6:10am End: 03-25-2022 take 2 tablets by mouth twice daily in the evening dicyclomine (BENTYL) 20 mg tablet Take 20 mg by mouth twice daily. 2 tabs in the AM and 2 tabs in the PM 0 03/25/2022 Discontinued Comment on above: Take 20 mg by mouth twice daily. 2 tabs in the AM and 2 tabs in the PM docusate sodium 100 mg oral capsule (13 sources) End: 4 docusate sodium (COLACE) 100 mg capsule Take 100 mg by mouth as needed. 0 08/09/2023 Discontinued (Discontinued by Patient) Comment on above: Take 100 mg by mouth as needed. famotidine 40 mg oral tablet (12 sources) Histamine-2 Receptor Antagonist Start: 2 End: 4 take 1 tablet by mouth once daily Famotidine 40 mg tablet Discontinued 40 MG PO Daily July 12, 2021 11:00pm July 25, 2023 6:10am Start: 05-27-2021 take 1 tablet by jan th every twelve hours Famotidine 40 MG 1 TABLET Orally Twice a day for 30 day(s) Apr, Active 30 actuat fluticasone furoate 0.2 mg/actuat / vilanterol 0.025 mg/actuat dry powder inhaler (3 sources) Corticosteroid, beta2-Adrenergic Agonist Start: 10-23-2019 End: 06-03-2022 take 1 puff(s) by mouth once daily fluticasone-vilanterol (BREO ELLIPTA) 200-25 mcg/dose inhaler inhale 1 puff by mouth and INTO THE LUNGS once daily RINSE MOUTH AND SPIT AFTER EACH USE 0 10/23/2019 06/03/2022 Discontinued (Course of therapy completed) Comment on above: inhale 1 puff by mouth and INTO THE LUNG S once daily RINSE MOUTH AND SPIT AFTER EACH USE 12 hr hyoscyamine sulfate 0.375 mg extended release oral tablet (11 sources) Start: 03-25-2022 End: 08-02-2023 take 1 tablet by mouth twice daily hyoscyamine SR (LEVBID) 0.375 mg 12 hr tablet Take 1 tablet by mouth twice daily. 60 tablet 2 06/03/2022 08/02/2023 Discontinued Start: 06-22-2021 take 1 tablet by jan th every twelve hours Hyoscyamine Sulfate ER 0.375 MG 1 tablet Orally every 12 hrs for 30 day(s) May, Active Comment on above: Take 1 tablet by jan th twice daily. lansoprazole 15 mg delayed release oral capsule (15 sources) Proton Pump Inhibitor Start: End: 4 take 1 capsule by mouth once daily as needed lansoprazole (PREVACID 24HR) 15 mg capsule Take 1 capsule by mouth once daily as needed. 0 08/09/2023 08/22/2023 Discontinued Start: 03-25-2022 End: 08-02-2023 take 1 tablet by mouth once daily lansoprazole orally disintegrating (PREVACID) 30 mg disintegrating tablet Indications: Gastroesophageal reflux disease with esophagitis without hemorrhage Take 1 tablet by mouth once daily. 30 tablet 2 03/25/2022 08/02/2023 Discontinued Comment on above: Take 1 tablet by jan th once daily. metFORMIN hydrochloride 500 mg / SITagliptin 50 mg oral tablet (20 sources) Biguanide, Dipeptidyl Peptidase 4 Inhibitor Start: 4 End: 5 take 1 tablet by mouth once in the morning sitaGLIPtin-metFORMI N (JANUMET) 50-500 mg per tablet Take 1 tablet by mouth in the morning and 1 tablet in the evening. Take with meals. Do all this for 180 days. 180 tablet 1 01/04/2024 04/18/2024 Discontinued (Alternate therapy) Start: 11-12-2019 take 1 tablet by jan th twice daily at mealtime sitaGLIPtin-metFORMIN (JANUMET) 50-500 mg per tablet Take 1 tablet by mouth twice daily with meals. 11/12/2019 Active Janumet Active Comment on above: Take 1 tablet by jan th twice daily with meals. ondansetron 4 mg oral tablet (8 sources) Serotonin-3 Receptor Antagonist Start: 03-25-2022 End: 06-03-2022 ondansetron (ZOFRAN) 4 mg tablet Indications: Gastroparesis due to DM (HCC) 1 TAB EVERY 6 HRS NEEDED 70 tablet 1 03/25/2022 06/03/2022 Discontinued (Course of therapy completed) Start: 05-26-2020 End: 07-05-2023 take 1 tablet by mouth every eight hours as needed for nausea and vomiting Ondansetron Hcl (Zofran) 4 mg tablet Discontinued 4 MG PO Q8H as needed for nausea and vomiting May 25, 2020 11:00pm July 05, 2023 9:51am Comment on above: 1 TAB EVERY 6 HRS NEEDED pregabalin 150 mg oral capsule (20 sources) Start: 06-13-2017 End: 07-13-2021 take 1 capsule by mouth once daily at bedtime Pregabalin (Lyrica) 150 mg Capsule Discontinued 150 MG PO Daily at bedtime June 12, 2017 11:00pm July 13, 2021 6:12am End: 08-22-2023 take 1 capsule by mouth twice daily pregabalin (LYRICA) 150 mg capsule Take 150 mg by mouth twice daily. 0 08/22/2023 Discontinued Comment on above: Take 150 mg by mouth twice daily. sertraline 100 mg oral tablet (20 sources) Serotonin Reuptake Inhibitor Start: 10-31-2019 End: 06-03-2022 take 1 tablet by mouth once daily sertraline (ZOLOFT) 100 mg tablet Take 100 mg by mouth once daily. 0 10/31/2019 06/03/2022 Discontinued (Discontinued by Patient) Start: 09-20-2019 take 1 tablet by jan th once daily Zoloft 50 mg Tab 50 mg = 1 tab(s), Oral, Daily, Refills(s) 0 Start Date: 09/20/19 Status: Ordered Repeat number: 1 Ronaldo Active Comment on above: Take 100 mg by mouth once daily. traZODone hydrochloride 50 mg oral tablet (6 sources) Serotonin Reuptake Inhibitor Start: 05-27-19 End: 01-19-20 take 1 tablet by mouth once daily at bedtime Trazodone 50 mg tablet Discontinued 50 MG PO Daily at bedtime May 25, 2020 11:00pm January 18, 2021 1:40pm 24 hr venlafaxine 150 mg extended release oral capsule (6 sources) Serotonin and Norepinephrine Reuptake Inhibitor Start: 06-14-19 18 End: 10-09-19 take 1 capsule by mouth once daily Venlafaxine (Effexor Xr) 150 mg Capsule,Extended Release 24hr Discontinued 150 MG PO Daily June 12, 2017 11:00pm October 09, 2019 2:32pm Problems Active Problems Problem Classification Problem Date Documented Date Episodic/Chronic Abdominal pain (20 sources) Abdominal pain; Translations: [Unspecified abdominal pain] Onset: 1 Resolved: 2 Episodic Anxiety disorders (20 sources) Anxiety; Translations: [Anxiety disorder, unspecified] Onset: 8 08-09-2023 Chronic Aortic; peripheral; and visceral artery aneurysms (20 sources) Ascending aorta dilatation; Translations: [Thoracic aortic ectasia] Onset: 7 02-06-2020 Chronic Cardiac dysrhythmias (9 sources) Supraventricular tachycardia; Translations: [SVT (supraventricular tachycardia) ([facility])] Onset: 5 04-18-2024 Chronic Coagulation and hemorrhagic disorders (20 sources) Hypercoagulability state; Translations: [Other primary thrombophilia] Onset: 3 Chronic Coronary atherosclerosis and other heart disease (20 sources) Coronary atherosclerosis; Translations: [Atherosclerotic heart disease of [place] coronary artery with other forms of angina pectoris] Onset: 8 Resolved: 4 02-06-2020 Chronic Deficiency and other anemia (4 sources) Anemia 05-10-2013 Episodic Diabetes mellitus with complications (20 sources) Gastroparesis due to diabetes mellitus; Translations: [Type 2 diabetes mellitus with diabetic autonomic (poly)neuropathy] Onset: 4 Chronic Diabetes mellitus without complication (20 sources) Type 2 diabetes mellitus without complication; Translations: [Type 2 diabetes mellitus without complications] Onset: 8 Resolved: 9 02-06-2020 Chronic Diabetes mellitus without complication (1 source) Glycosuria; Translations: [Glycosuria] 09-10-2024 Episodic Disorders of lipid metabolism (20 sources) Hyperlipidemia; Translations: [Hyperlipidemia, unspecified] Onset: 8 02-06-2020 Chronic Epilepsy; convulsions (20 sources) Seizure disorder; Translations: [Epilepsy, unspecified, not intractable, without status epilepticus] Onset: 8 05-10-2013 Chronic Epilepsy; convulsions (20 sources) Seizure; Translations: [Unspecified convulsions] 02-06-2020 Episodic Esophageal disorders (20 sources) Gastroesophageal reflux disease; Translations: [Gastro-esophageal reflux disease without esophagitis] Onset: 0 Resolved: 2 02-06-2020 Chronic Essential hypertension (13 sources) Hypertensive disorder; Translations: [Essential (primary) hypertension] Onset: 4 Chronic Gastritis and duodenitis (20 sources) Gastritis; Translations: [Unspecified chronic gastritis without bleeding] Chronic Gastritis and duodenitis (11 sources) Gastritis; Translations: [Gastritis, unspecified, without bleeding] Episodic Genitourinary symptoms and ill-defined conditions (5 sources) Scalding pain on urination ; Translations: [Dysuria] Onset: 5 08-27-2024 Episodic Mood disorders (20 sources) Major depressive disorder, single episode, unspecified; Translations: [Recurrent major depressive episodes, mild ] Onset: 8 06-13-2023 Chronic Nausea and vomiting (20 sources) Nausea and vomiting; Translations: [Nausea with vomiting, unspecified] Onset: 4 05-26-2020 Episodic Nonspecific chest pain (7 sources) Atypical chest pain; Translations: [Other chest pain] Onset: 3 02-14-2023 Episodic Nutritional deficiencies (20 sources) Vitamin D deficiency; Translations: [Vitamin D deficiency, unspecified] Onset: 8 08-28-2017 Chronic Other circulatory disease (12 sources) Arteriovenous fistula; Translations: [Arteriovenous fistula, acquired] Onset: 2 12-11-2018 Chronic Other connective tissue disease (5 sources) Pain in left lower limb; Translations: [Pain in left leg] 02-10-2022 Episodic Other diseases of kidney and ureters (3 sources) Cyst of kidney; Translations: [Cyst of kidney, acquired] Onset: 5 09-10-2024 Episodic Other diseases of veins and lymphatics (2 sources) Lymphedema; Translations: [Lymphedema, not elsewhere classified] Onset: 2 Chronic Other diseases of veins and lymphatics (1 source) Peripheral venous insufficiency; Translations: [Venous insufficiency (chronic) (peripheral)] Onset: 5 Episodic Other disorders of stomach and duodenum (5 sources) Gastroparesis syndrome; Translations: [Gastroparesis] 08-02-2023 Episodic Other disorders of stomach and duodenum (3 sources) Gastroparesis; Translations: [Gastroparesis due to DM (HCC) (HCC)] Onset: 4 Episodic Other gastrointestinal disorders (11 sources) Irritable bowel syndrome with diarrhea; Translations: [Irritable bowel syndrome with diarrhea] Chronic Other gastrointestinal disorders (11 sources) Irritable bowel syndrome characterized by constipation; Translations: [Irritable bowel syndrome with constipation] Chronic Other gastrointestinal disorders (13 sources) Irritable bowel syndrome; Translations: [Mixed irritable bowel syndrome] Chronic Other gastrointestinal disorders (4 sources) Irritable bowel syndrome with diarrhea Onset: 1 Resolved: 2 Chronic Other gastrointestinal disorders (20 sources) Diarrhea; Translations: [Diarrhea, unspecified] 10-11-2019 Episodic Other gastrointestinal disorders (11 sources) Dysphagia; Translations: [Dysphagia, unspecified] Episodic Other gastrointestinal disorders (11 sources) Splenomegaly; Translations: [Splenomegaly, not elsewhere classified] Episodic Other gastrointestinal disorders (11 sources) Constipation; Translations: [Constipation, unspecified] Episodic Other liver diseases (20 sources) Steatosis of liver; Translations: [Fatty (change of) liver, not elsewhere classified] Onset: 0 02-06-2020 Chronic Other lower respiratory disease (20 sources) Dyspnea; Translations: [Shortness of breath] 02-06-2020 Episodic Other nervous system disorders (14 sources) Chronic pain; Translations: [Other chronic pain] 07-03-2023 Chronic Other nervous system disorders (5 sources) Other chronic pain; Translations: [Other chronic pain] Onset: 1 Resolved: 1 Chronic Other nervous system disorders (12 sources) Neuropathy; Translations: [Polyneuropathy, unspecified] Onset: 8 05-09-2017 Chronic Other nutritional; endocrine; and metabolic disorders (20 sources) Morbid obesity; Translations: [Morbid (severe) obesity due to excess calories] Onset: 0 02-06-2020 Chronic Other nutritional; endocrine; and metabolic disorders (20 sources) Body mass index 40+ - severely obese; Translations: [Morbid (severe) obesity due to excess calories] Onset: 1 03-16-2020 Chronic Other nutritional; endocrine; and metabolic disorders (17 sources) Obese class II; Translations: [Obesity, unspecified] Onset: 4 08-09-2023 Chronic Other nutritional; endocrine; and metabolic disorders (12 sources) Cholesterol level - finding; Translations: [Lipoprotein deficiency] Onset: 8 11-28-2017 Chronic Other upper respiratory disease (12 sources) Allergic rhinitis; Translations: [Allergic rhinitis, unspecified] Onset: 0 07-19-2019 Chronic Other upper respiratory infections (1 source) Acute maxillary sinusitis; Translations: [Acute maxillary sinusitis, unspecified] 04-18-2024 Episodic Peripheral and visceral atherosclerosis (20 sources) Peripheral vascular disease; Translations: [Peripheral vascular disease, unspecified] 02-06-2020 Chronic Personality disorders (13 sources) Mood swings; Translations: [Borderline personality disorder] Onset: 4 01-04-2024 Chronic Spondylosis; intervertebral disc disorders; other back problems (20 sources) Cervical spondylosis without myelopathy; Translations: [Spondylosis without myelopathy or radiculopathy, cervical region] Onset: 8 Resolved: 1 Chronic Spondylosis; intervertebral disc disorders; other back problems (20 sources) Pain in cervical spine; Translations: [Cervicalgia] Onset: 1 Resolved: 1 Episodic Sprains and strains (1 source) Strain of muscle, fascia and tendon of the posterior muscle group at thigh level, right thigh, initial encounter Episodic Thyroid disorders (20 sources) Thyroid nodule; Translations: [Nontoxic single thyroid nodule] Onset: 0 06-13-2019 Chronic Unclassified (1 source) Aneurysm of the ascending aorta, without rupture; Translations: [Aneurysm of the ascending aorta, without rupture] Onset: 3 Unclassified (1 source) Supraventricular tachycardia, unspecified; Translations: [Supraventricular tachycardia, unspecified] Onset: 4 Unclassified (1 source) wellness Onset: 4 Past or Other Problems Problem Classification Problem Date Documented Da te Episodic/Chronic Blindness and vision defects (12 sources) Presbyopia; Translations: [Presbyopia] Onset: 8 06-15-2017 Episodic Cardiac dysrhythmias (2 sources) Palpitations; Translations: [Palpitations] Onset: 4 Episodic Deficiency and other anemia (12 sources) Iron deficiency anemia; Translations: [Iron deficiency anemia, unspecified] Onset: 9 11-27-2018 Episodic Deficiency and other anemia (12 sources) Iron deficiency anemia secondary to inadequate dietary iron intake; Translations: [Other iron deficiency anemias] Onset: 8 Resolved: 8 08-28-2017 Episodic Headache; including migraine (12 sources) Migraine without aura, not refractory ; Translations: [Migraine without aura, not intractable, without status migrainosus] Onset: 8 Resolved: 9 11-27-2018 Chronic Immunizations and screening for infectious disease (1 source) Encounter for immunization; Translations: [Encounter for immunization] Onset: 4 Episodic Mood disorders (12 sources) Mood disorders Onset: 4 01-02-2024 Nutritional deficiencies (12 sources) Cobalamin deficiency; Translations: [Deficiency of other specified B group vitamins] Onset: 8 08-29-2017 Episodic Other aftercare (20 sources) Drug therapy finding; Translations: [assisted (current) use of anticoagulants] Onset: 8 02-06-2020 Episodic Other and unspecified benign neoplasm (12 sources) Thyroid adenoma; Translations: [Benign neoplasm of thyroid gland] Onset: 8 Resolved: 9 12-11-2018 Episodic Other circulatory disease (20 sources) Vascular disorder; Translations: [Unspecified disorder of circulatory system] Onset: 8 Episodic Other diseases of veins and lymphatics (2 sources) Compression of vein; Translations: [Compression of vein] Onset: 4 Episodic Other gastrointestinal disorders (1 source) Diarrhea, unspecified Onset: 2 Resolved: 2 Episodic Other infections; including parasitic (20 sources) Personal history of other infectious and parasitic diseases; Translations: [History of COVID-19] Onset: 1 03-04-2020 Episodic Other injuries and conditions due to external causes (12 sources) Delayed healing of wound; Translations: [Other injury of unspecified body region, subsequent encounter] Onset: 9 Resolved: 9 11-29-2018 Episodic Other lower respiratory disease (4 sources) Shortness of breath; Translations: [SHORTNESS OF BREATH] Onset: 1 Episodic Other lower respiratory disease (2 sources) Other forms of dyspnea; Translations: [Other forms of dyspnea] Onset: 3 Episodic Other lower respiratory disease (12 sources) Persistent cough; Translations: [Persistent cough] Onset: 9 Resolved: 9 11-29-2018 Episodic Other nutritional; endocrine; and metabolic disorders (12 sources) Body mass index 30+ - obesity; Translations: [Body mass index (BMI) 38.0-38.9, adult] Onset: 8 Resolved: 9 11-27-2018 Chronic Other nutritional; endocrine; and metabolic disorders (20 sources) Severe obesity; Translations: [Morbid (severe) obesity due to excess calories] Onset: 8 Resolved: 2 03-03-2020 Chronic Other upper respiratory infections (20 sources) Sinusitis; Translations: [Chronic sinusitis, unspecified] Onset: 8 Resolved: 9 11-27-2018 Chronic Phlebitis; thrombophlebitis and thromboembolism (20 sources) H/O: Deep vein thrombosis; Translations: [Personal history of other venous thrombosis and embolism] Onset: 8 Resolved: 9 02-06-2020 Episodic Unclassified (1 source) Aneurysm of the ascending aorta, without rupture; Translations: [Aneurysm of the ascending aorta, without rupture] Onset: 4 Unclassified (1 source) Supraventricular tachycardia, unspecified; Translations: [Supraventricular tachycardia, unspecified] Onset: 4 Unclassified (12 sources) Onset: 4 12-19-2023 Viral infection (12 sources) Disease caused by 2019-nCoV; Translations: [COVID-19] Onset: 0 Resolved: 2 07-25-2021 Episodic Results Test Name Value Interpretation Reference Range Facility Provider Orderson 10-09-2024 Provider Orders [id number]# 1[facility]00[facility] Billing Authorizationson Billing Authorizations [id number]# 1.00[facility] Coding Summaryon 09-26-2024 Coding Summary HTMLBase 64 LeqikfcgCMh0pFm+PGhl YWQ+QW4ILGRwG11hlWRy mL0tX4OPPFgRHykrHXSQ VYpIGyCbmkFpBN1zzDLq ZXJu IC8+YS6qVAPdNwgifILr h8R9fFZ8X73vzm2yMMte bGO4XMPaMeDegsnoh0pr bSa1NEprEuoeHeEm ZYDrxR68SCB8nV32Zw33 nTAauAUan1zvlWr5YjWk ITYpWZJ3gCbbPYzyd6Ae ESXhK82fyTXvd3U2 IGNvbGxhcHNlOyBlbXB0 aJ3lJZciuadtk3xfvdsy Dhd8fu03iTNkx0N9aKN6 O3OtqcE8SDIrdQIs XyrnkXURiB8rzvlmr8ya btfxNyFqNUPqHRa6CJi0 EXYcaLwqRsPdQT01KZH4 XFTpazTtF2BeYXVg mVkwZiI9k4P7Px0YN1NH ZdmzR0FDIPZACStexUB+ RE95sc32Z6KrIqlzPid1 BUIeVQM0yMO8sB7a YXObQErwe9Y7aTW0M7Xo fmCsjh4mt0qiDYAgKUco F27azRCdy9D5OPFuvEC6 AWPfaAcrNtGulC07 Oyc+LIDwnEeop6DcQbdl d9ptk9kzhXf2MeubOQZd yvHykCzyOBU3c1WdKu2a BVHtxUL4zPS3eR4o KuFaYuI6QSvgK934BoUo oOFbOmsxY84gL1OxeMH+ UAYqWqb4DGOawMmpLB9d G8ZeDNRmejktdSFf dPwoMP4mQJNivqbfDSNe qO7eAKByL8t7BxLwNpV4 NLupH9FyKQLrzknxFl38 cF2sYyYoYmF3CJob I2BpwaG7ZYCokATfLDpk ZHT9K39sz3M3PZCaEFOt SQH4gNC3eK8spFrrblla bGVmdDsgdmVydGlj HCqaSSxlY678HPKdlHdl PkNvZGluZyBEYXRlOiAg MDcvMzEvMjAyNTwvdGQ+ GQSwHYL1iSndLGJb zBUjOCngAh9xzSaemTki WK6dWGCzwpfvXPTtsV0o FJVuqTXxdIjtCM7eTWNb fcjyn502PpYkNPW2 GQZzyTKkD4JryU8fTfHs VVYgNHUjV7AqyLUmMXed S854KQwpReN2TYElumVb J6AaGLWvwVmwFxJ8 c4O8Rk4Nr2MlcrhaS9St sDZcWiIoDikrOSj0I5Ap PjwvdHI+SH62ZDSoLH58 NHh4WBL2oWclGUir WDHiY3HfoL5bXcWaBNTw ZGRkOyc+PHRhYmxlIHdp ZHRoPScxMDAlJyBzdHls HV5yPf5jGEGvNRSj mTqecLGcKcMvh7joKLSo GQfsEH5wgMtvL5LjxTT0 MCFbt7t8Tz43S31cI4Tb dXA+WIXbdUD7qYN6 oY3lPpTvRvE5IJelZ191 OhMzsUKlZmqvp6ins2vp yKl1HpO5JJXdsmLyfGyk QGU1k1QsIx92M16o IHdpZHRoPSIxNSUiIHZh mKgpyo9wkI0mAd4+PGNv aBJ4eMP9mU0tVxZnRmF0 JPrhX143AeDmgSBo Jzqxl1ien1nvsIs6CeRv ZHIohxLzeNuhDNG8o7Fx Xa24P7QhxEygv7KhKha9 mi90gSYkb2V7vZQ7 N9TlREUmyioxbANuvOpn VA3vWGPoxeoeIFWdhZ8j VTEfU4b7SqJsKbU4LYgi A7WjygZ9GYItpQEm YFSrwDXBgH3ebxlxy1gd dbrcAbZkVJAhSLn3RYe9 SLGljHdpUcYpNYX1RjK6 HHW1nKCjpL3jdHaf efetbY1aKvs+MBI5iJYd pNJYMO5pGtcraLB+PHRk WHI0eYsuUPupMVDybU1c PCNoF0e2OvZrQsB3 USuwU3DegwO1BDRrjXKf EYVydIWXvM8crydsk0fk pxejAmSsEDXnDRu9UNz2 LWFsaWduOiBsZWZ0 ZcN9FZZ8lYHwhD9luYzl mwnwzW9lEvv+QmlydGgg YUD1WVb9P1LjTuq2CIJq mTicHG5usHAhIDen Vv3uxGsazAtlJB8tDQGp glqgh658AuTrr0hvCGJu rNOyPKteAZI3L80fk5D5 LQAyBNHwAPW3aDJ3 pU7koDzcxcbllTYekGqt nnAxyJbxQIkrTFhqC823 UJUrfWdrGtUtFEr0P7Iu Sbx6TZXmbHbmHP3f zDGcPPdqTm9neJkkhBsy HU5oLFQakhuqo321TsQg r0erSHXrhARxIOqhWLQ9 A20nl9V7RJTcCSLd EZO2jCN4zN2vaRcgmspt bGVmdDsgdmVydGljYWwt TOruW582SQXjmRuoWjGc tMh0R0ZbSpm3GOHl qLvvUC7jmKSwSZfhLm9d pBpnmSxeKQ9bJJGjsivz v282SwGie1neVVClyJMa KVmlNUY3K06bj2T9 RXZwQUEiPDA4cVY0zB5q bGlnbjogbGVmdDsgdmVy zArqTIgqGDdwY751TJXo cDsnPlBhdGllbnQg AFnwPMj3V8YiXbmsuXH+ XD63OMBfYS18bMYynCYf h0jniYp5MsLkZSWyYKM6 pJcpEJmcq7LdTRWb Y25okSEgm8R2DPWgcZcd nDPuTcGjhGA5eI8cBOom sybym3ltbbytArebg4uu id22yR19Z79iURlb ZHRoPSIzMCUiIHZhbGln al6uhT3gNq0+PGNvbCB3 aMQ5zY7gIHYfMfG7WLrp O972MlMwcTFfZrnf l3trq9vvbTa2XaT3JKAf bbIdeQzyRXA4g1UeGo67 P80sXVonRVCbVERjZPFp HJLvjPhwxa4deF5a Ii8+PVJorPK1hXU8sT1p ZwPgVrZ2TXlrP424TpRz jLMjFklfL04dL4BnhCA+ VVVqEgb5YDEdqWiv CK7qwPRiHQteSx9cKPF2 YxMrXdYbPHuzH9GlROLo yhyeklwprNC0PVOuVFJf iE32Qp7erSxeGDDz bNYUeE0mefxex6npxcum OzKuKOOmVOi2GQi6HYDz mYirGhFoUDM2JdI8BVU1 jCUbkE7jnBjzqfzt yS4eT7LdOJVjboqiGo50 gL9mDsLzMjI4LYjqCda+ TUlMTEVSLCBNQVJBIFM8 M6QsAqw3BVDkvQsk XP2hdLLgUFheJk0obVkk wKhgLQ8cLOOigjlkQUIa xS8wVFGvvMIypRlfVR4e FOMjhbgsz133QfIr EGG5XHGnaOHpY0NblC0s IgBbTXDwCSIzS9UkiELt OHxsQ608XVldToS4YTVk fsIpM1UnDUQurTfb GvZ5s8A7Ey0xGf1jMx2r TGmkTY01OI96hWXoj2N8 dAJ0F7AtATFaxmmcbdry pQM4ARLhYOTfiO34 nSXuXJteZx4di9T9j565 HLLdNEMefU62Hk2ocTyv LRSuhBNWdE5nhemfq1kt cjogIzAwMDAwMDt0 HLy1QGEsvMcdJdXmVKH6 AoD1VVE4kITauW5nxJvp zkghzI6uKwr+NTUgWWVh fnT3B9ToRqm6NAVb fGuvOD1zmYKeRLvyUi0a dVfkcTlcEC6sAQDuauuy FXYqpT5bKHNchUAtjStk EP7sHTRgcbhvq256 GvYrSZP1EFHxrRDlY4Ut vH6pTpIrIDQbWSGhW8Dr rXAhNThxD653DQytGyI7 PXTxciVfK6ThPCSl uOrzStH4q6T2Bj6CVG9R GSP3I6TgEid8XJOzfUsa VW4iaKElKImcGy8zjIig qJtcVQ9nEFWgzjmm JRBvxE1rTMIvbFGnmMjw XP4kCAOqmeegc470OqSw FZN0NPQjxGZjP8BgpW7e GyFjQEYyTUCiP4Xt bLHgOPkhP982FUxdReK2 EBZhhyWeI2NaDJHatRls BgM5x2X6Np6BOFV0paRj rbjpM2Q2kFA8sJZi dDwvdGQ+HM64bc05W8Pw FufsMuo7CUNlWSI7fOZ5 bN6zDMGuHReoq0S2xDG2 E2EuobUtvd7pk7pp SXYlXKvuX07jtUBor7Z6 XVJqlTP1AOMetDupEbIw uB58Ofx+ETMiaPwgo5Nj Cbopv6qsz7ihuLc7 IjMwJSIgdmFsaWduPSJ0 w1YhNq18L40eQOfiAACe TBCfOFYlNSMckJuhdx6d qB8eVr5+PGNvbCB3 eEI0cS4qDxWgNcB6JPbt Z889EvFqdASkNsqtq9ue s7uehLz5CaZcFLYgezVv tPjiZKK4b9SiCo43 I4KooLuis6VyVqr5rb23 cBWre8W6zNM5U9JfJLKl jzmqdKUtyLjmFQ2tPNZa vniqVBRqfX6sHQEn X7j9UaIlErU1HHifN2Jo evD1BNLclQTzDMMljERG mU1ghyxem4hzwiinKcHg TGPeQKf2IMg3QWEe wVkhObGaHTQ7UsB1QRW4 mDWetH4fyGnpdpadiX8j Oyc+QLr3q2vmpIStOQ8t hKH1NZ81DO31wUUg q6Z3xJM9J4VdEAPyrwov dsjbpIR9JQYpCGXxsO69 Ki2fxWykJd1rVVJaJWY6 MCAafLKeM5WkyT5g KdScRQVgMAXkL9JmmWXo GCkqH454PRgjWrQ3VPUb ljTdP1XeJDIcfNmxXsD9 u9K6Io0SHN16PY15 CC84oCNrb1H4pVZ9L7Bp TGYaqrhwfnrbvNB5JDEt OBJecI06Nr6wrUjhNg1b JGLpQGP3KDVwaMSr G3MdmD1oNrWdZXSoLGGl L0GcoETpVAnvB779SKpt RqT7XLHmqeQbJ1XqELGw jQvgKzO6o1N5Hi3L Ra34GX23GR55cRQdm2K4 yXZ0Z5IzXCSrcbojuhld uNP2KATvAYAvxV53Nr1m qRjmEa8uSQJyDQX1 LAIdkIIeA2RepN4dEqMc CJXcYMRnT6RnjJUiBRsn H667JNewKbO1VKRyvgMt A4QwIZBvaStnWmE9 z2Z0He8KUWhkiut1L4Pw PjwvdHI+OD24HUShDU71 xYUofOCua4rktOp0FwOl MPGoIDC6kUagVMrp b3J (more content not included)... [facility] Provider Orderson 09-13-2024 Provider Orders [id number] #1.00OTGTIFF [facility] Coding Summaryon 09-10-2024 Coding Summary HTMLBase 64 LdnvpdqdCHa8fXp+PGhl YWQ+DG6FTUJtR62ssOBa lD6eF7XGNScUPnmgUKKK GUwMThTlgvMiLK3duIZo ZXJu IC8+EQ8aHQPjVfeahCZc n5U8pNT4C76dfg7kZOqg fQC4WAXpGxZvgduev3xn rCk5PYedCouuSgKe QCYocE49VRZ2tK55Nj55 oRPuwPSbh6cjuLb8HtFv ULFtKXJ3rCynWEykq4Jh JRTdT51ltJOgv1S5 IGNvbGxhcHNlOyBlbXB0 nP4eTAwlgpjob8jhuwpz Pti9wh81uLVzr0H8oNO8 F3VinaK9KBYtnAGq KalzeHGUeO7iiuyxj9hk bgfbNbXfFFXbVHe8KYu2 STJtaJvpYfVnGZ94EHU4 KCOhhmEmQ8QkZBRe gNvnBsR8e3T0Dq5NU9RP CwscU5JPUZKYMRntsKZ+ ST15it18K9DxNwcvLkn8 QFEmJFC3vMM2wB6a YAFmVPgjc2U4zFQ4P7Ar kcCpgq5hf4xyVDXhYBba S67hzAMgl2W0JAWglJT8 CJNrxKqwAiBswY41 Oyc+STHbxWygs4FaHhkp p0ztl6vrpBe2OybnQHKn mlHwdQrsXCF8k0YpAa2b BZGeoOJ9gYQ8bB3x OrGwRgZ3PXwkH150XeOj pIUtRisvZ58tH7ZgzIS+ VUWmOyv9NLSqxKzdQJ1n P6IgKKWaycvyhZXa pEraSQ4mQUIrxbqcAXOm eL0pRYNrB8z5LbCzZgJ3 HJkwB0UhHIFahzywYq27 iA6uPdIgCbU3UMql P3SxsqQ6SWErzICpURmq JFW1F51zz3G5SNOeORXz YVZ3gBX5eI1rxIrkdaur bGVmdDsgdmVydGlj RThgPUwcC531RPWtfKbc PkNvZGluZyBEYXRlOiAg MDcvMTUvMjAyNTwvdGQ+ IZKaJAL6lKswWHYe rZGeUDitEb5izTibwMaw VB6aIWOiufomOPOycD0g JXNumVYooLdzCB3sPZEh kqiou895GiEiLRA9 LNVnpGKlS5XjrR2fCiAr XALoQHAnT8IkbDQbQIee A219QQzcVxT6JEYnabEn D2XkGKUmbOwhPxT9 o0E7Jp4Ob0AkkawnA8If jIMcJmDrFhdhACo5S4Ni PjwvdHI+RM91HIRuXZ23 PHq8ANB5hQreGScf PWClE4QqiZ7xLvUoOVSc ZGRkOyc+PHRhYmxlIHdp ZHRoPScxMDAlJyBzdHls KV3dXi8zNAAmSISk eUhqoEXoRxNef6wuRXBb OGziSC2obGeyM6EvbBU1 BDItt2l6Pz55D78iF0Gh dXA+AYWqfJY6pUW1 eH8fEoHrTdH4LZvfB543 WaYpyIXgAgivo5vkg1vo jDb8KrH3FFMqmePsnAfg WVB1y9RcRq84L73c IHdpZHRoPSIxNSUiIHZh eNqoqn9dqQ3oIu6+PGNv kOL0lBH7xA6mWjFdNhY2 ANngT614IlDmaOUn Yvqvl3kbv5vqeAc2KiDl CWJmayTltCcgETL8r3Xc Mt68M9BuySrbg5PwHff2 ia99nHXhm2J4cQK6 N7BsZDLgvnfpwUPbrIdu NN1hHDEbuaqtXDCogL2z YNBnE9z0ZxFvDdU6TYxg O9MwdjP7ZXHsdRMs LFSsnKKDdF0mkcmsq4yp thovQdNhHKSqRDf0SUq3 WBVldOkeMyEvLSY5TdW2 AUR6fZDjaZ3hiAbd iaxojQ8hYdn+NRQ4fUAn oJMFNW0pDmwjcRN+PHRk TBU1bHhcFUapSPSxyW5o ONOaM0b4AuBlEoV8 ODqaX4PwcmH4RUDirKMg KPHreMEDsS2nutyil0xd bwpkNsBlVIRlFJd9MYw3 LWFsaWduOiBsZWZ0 ToH4IBH3aVNaiL8wiUxb pudolT7pHwf+QmlydGgg SXK3BJx8Q8MyHkj3AMLw gBvoZG9qmGMzUNlv Bu0vuQbxpSvsZQ7eJZVn nmqtx878QiVpt3coJCEy nNEtMKqvFJQ8A56nf8I0 JXBnJATyLCL8rPK1 tK1kdDuwkobvaPKvlEdh vrEyyRvhJTprITofJ261 NGPhjQiiOqYcBZn6S9Yq Gis0DKBnyEhdUZ3s cURrEXnlXc6boKwxdUnv MY4hCSThwpmoc946XmLw s5sfJUKmmVUiUIloYJU8 V28oc3C8ZMAdGHMe WKM2vSV0rF5foDzyvlkg bGVmdDsgdmVydGljYWwt LXyxN998LNFrfVatPsRs iMf3Q9NqDiy5RPKl gTuyQS5zkDHuIOpkWi5d pMonqNekPT6vFZSscaci l458WgUch2qiTJGmsECi VTjbDWK8O58rk0E5 GKZgEHNrUBQ4cTB7sX7f bGlnbjogbGVmdDsgdmVy kZayHWdgQRnxW748WOIl cDsnPlBhdGllbnQg EDqjTRp4L0InIfsdtXP+ KI80FJXfZA24gQIswCMm g6nteYy3HrUwJKQjTHF8 pNtsQLorx3HvMNFs C03tfIRpl6J3ENIvjPdo eBVgPgLvsKI0rB9uUQfo itmvs9najgogCbpnb6ab jj15rT29G70tQVhd ZHRoPSIzMCUiIHZhbGln ju8jnS0sGg0+PGNvbCB3 jMX9dD3vJHJfGlY8TLdv U409AsHafGLrUxig i3fay6ajrRu3HrK6FSZt ixUrgZymTXY9o7XxEr74 N60qOZvpUXTjXSHdJSXk HQSyzMsbll9scC3l Ii8+IFThpWC2bCH2nL2a WmRvRcB2GFaoA651BpYr xNGwAtzeM62eJ8JeuPK+ LBScVkv4JZWlmXsy DB0woQMnWOqcOc8kRLY0 ItErRpTjDWrwA7KzXMJk jqidcokrjBF8LGNnSAJq hJ54Ql1bjWsfBNTa dKZHsI7fobote7zjowdh QyBxOZQvVMh3EJa6PIHb tReaUnLkXLY4SjK4XPB1 fXFudQ1vsCgrlsda bO4iV7BjSDHlbmqmGt10 zD3mYkDfDmW9NFhxGkb+ TUlMTEVSLCBNQVJBIFM8 X8WjZac4GNBksQwj OR7fgTGbCXcrWi6rrMwb cSagHJ2tHWNfconlLALf aP8bPYNefOBrvPgyYT2v VDUbkwnlp145BpZr LZU3ORAxsZEfU6WrqG7h WgLaKXDwTIYiL5MayJMx YHieB572ZPfgYcQ8XXHf lzAoJ1LhSFXimFhj RnB2d6K0Uy4pPg3jHc6z WJtnQO86JX60lTByf9A3 tND2I5NtVLRysqomvdkh vFA7WACsYSJaqD82 nUMqROxaNp7bl7S1r474 LWVzMVBpsB86Tb3jvZww CBWluMBVcE6ckohgm9fh cjogIzAwMDAwMDt0 QVq5UKRnsRymHsScQZV7 ZhW0FLA3pFSblJ2veTln sabwyE5tQkx+NTUgWWVh djA4X6WgWfl8VZXl nRvzRL7rmLCuIAapQc1v uJsfnQgnWS4gYUHnvirr MUDcoR4lTRUggAWezJde CZ5cLVJceygyz040 PaRzZHP3BLRpkEUpP7Mp iD4oDrVzDQYuEBUgT8Tl nKKyRIhkA570NVasCzL9 AEMxpzXfY7BoWUJd oStfSpB2b3N1Hu5DJX6S YIJ6D7OwJda5HXJboFub FA2fvYCxEHswHl9grBqf oUyrWI4cZVJukzqj QRFzqY1vUYKfhZProUbq FF7mTCPdbtnxp918YaIk CYS6VDYmqLLaK6DqeU7n HgTgQRMkJACgL2Nf iUYpOIotP590UWxyBiR8 WAAqmbWcW6QtNQNbbLin BdQ6d3H5Na8GCTryqUT+ FZ94ql05J0VuMwqr Lyr4TAPbJCS4iWD5tW7c CVXsEZsif2G0fZJ1B4Ht fpMunl8sg4npRUQsWPyz U37jyQVcc5S3NVCh uHN2ONTgpUczYaEmiL38 Oyc+YEWbkGgyx5UjPgsg p1avo0talUz1TrSrZRHz kpCgdZzoZOM1y5Cl Yf48I28nVPotXASrSDEr BVKqIACuuFfqjf5haW0k Ii8+KVDroLA2hNU8kB3d ClPgMqW9WWxrI399 JuIalPXkZorlk6yvk3vv yDx4NgHgNVTrhjEisIip QOJ1b2IaXa72R0OksFqp k8KpWmm5xe73eYXf z0P4nWI1W2DuVAJaasyd uBIgfNcbSL6xNEXtorhm XEEslF8yBVHvS5r4GxQm DtG1DXlgV1CodxB2 EQVseZNxZQRckHOAoF1q enhdv8chxymqFrVcTJJi URx2AYr5YZVrqVzsIrUk VJS0RcE1PWZ5vWEf iB0khGdctvqgdZ4sFka+ GUu4m5zahNBiAP0jkQB3 RX01FI60wAJvy4V7xAH3 T5RzTIGtcqlgcpao wLP4DAZvMBRclI46Qy5e rQnfSl3yMAMfKGK2LOSc tMXlA0UtnR9rNxOdBAKe LLWcW4FqvWFjEEzg W185WPjuAyM8HGGvcgBj E9FnPIVinUcbXzV2h5A9 Ia7OCY26RX15MV07eDJd m1P2iJK0T7BxICJb xtbrqgbgqAY9FVBcOVBz gK35Qh8jpXkrTd8uCKBo UXK2GWHvgVJeY9AvtU4k SdKsFMNzCCXsE3Yj rPPuEVqgH956XGdzWiA2 XZIpvoJqC5GaMRPdgGqh JqA6y3M1Bu7DWe90JZ50 LY14oUTwb5A3lGS0 V1KeWHQgsrwphktxwLU7 EOZtTLPftX19Fy6kyMoa Ij2xRHJvYLK1IMIhwXQy Y5BsqL8hSgGiJHGa NPZwT5GcxJGtXVxdY409 PRdxEcU1DGHockKeQ4Iq OYYpwFgwDaF1d6F9Ej0D OQojjgh8B7LpGjyl dHI+KN46PSQkAL62iNOp cVZny5gjnKo4BfBqZWHg WAX1zNpyIFuep3ZcUQTh U76leOSgh0K1GQKa bGx (more content not included)... [facility] POCT urinalysis dipstick onl yon 09-10-2024 External Poct Urine Bilirubin Negative [facility] External Poct Urine Blood Negative [facility] External Poct Urine Glucose Large [facility] External Poct Urine Ketones Negative [facility] External Poct Urine Leukocyte Esterase Negative [facility] External Poct Urine Nitrite Negative [facility] External Poct Urine Ph 6 Pr [facility] External Poct Urine Protein Negative [facility] External Poct Urine Specific Graham 1.03 [facility] External Poct Urine Urobilinogen 1 [facility] Interpretation and review of laboratory results Abnormal [facility] Coding Summaryon 09-05-2024 Coding Summary HTMLBase 64 SwcxfakqCYj4nFo+PGhl YWQ+EM5NAHOrJ75fkNVo sB8kB3PKQUzCPkpiUTBR USzDQqYdsdKmIZ3zaZAk ZXJu IC8+PS6bRFGtWqafhACs c2P6qHY5S54yof3lSRjr gSU3CGOlYgHgginck2fx sRb7RMaeFbrkHhRv WWKapH67IWF2fZ18Dv79 nNYyeMPes2frxVb1YkCc TZEfPMX3kDqxULqfk6Pd TEZgV97rnWQpl9R7 IGNvbGxhcHNlOyBlbXB0 uU5gLPxnbajcy4unsyhw Ehj4hy76mYUwf7R9yYM0 K2PigeL1GESxlOZk PpgpbPNTtZ9tjucxt2hl flvjQeUaBSDpZYy4DHr9 CSBhaYadCwBaBQ43YHD2 BMPpjoPvM3IeTIZd tSpdPlH3b9B9Ms7YP7JZ FkgiQ4SHVIZNIAsttQY+ VR11wq21S6FhLawuDxq6 VFFvDKA4vCR4dN3o INWiBHcmf6V8vHD6Y1Zr maWgxl3xr2obNKLzOLok O07njKPqu3Z3GQSkvCH3 FXGtjEdlYrQwpX65 Oyc+BQLayUqme1HkHxxl e1ieu6yxeFy0VekgHTNp maWydNxfULL6j3GkQi9s RENdoPC9kRO6iN8n KvQiPgG1EDwoN085JyZe jQXxRplfO49nF4WslLW+ ZQBxAyo0ECLneAlwEO3p M6VxOYAzcbfhnBYi kCrwSG9cMARonzbcSROw qP1lMBDnE4c3AxNnSzU0 ALrcO3PdHNBycbshUt14 pX6iHoCzGsU2OQir N0TizwB8SQTosXRsFIpq UOH9D02gh6X6QXOxQHDq QMR3iXI0tB4tjWltvmnw bGVmdDsgdmVydGlj VSdiPZyiN697EZYsoXms PkNvZGluZyBEYXRlOiAg MDcvMTAvMjAyNTwvdGQ+ DDHzLBQ9bBzgJQUp gFXhMCawVt4cqJndoLac CR4hRODdyxypWHTaaW5i UMPsaVFgwYyoUM8jIGWj autyt307GyYlLFZ9 VVXufHIqU5SayL9jBxVr NDOmZDQfU0GziZWfSKix W778MFbtLyI6FCAyyiVv T5TlIHDpdAsfMhN5 d3O1Co0Sm2OpsttkY5Hv tXFmLdQgGlefQVo9F0Vm PjwvdHI+RG15CHBgST46 ONb5MVI1dXhwIGky PQXjX6LomL0iTyLgUSGq ZGRkOyc+PHRhYmxlIHdp ZHRoPScxMDAlJyBzdHls SY1xFd6cPCYfIDEs tRikrLPhBuFww1juJCOj NQhxFP0asYybT3CfaAO7 RSLbp3t7Ck11Q71sP3Hr dXA+JEPvpEC1vRC1 xM5aSuBwSxP3WKivK856 BbQocRXgCnbuw3qza7mc kSq6WbD9NIPxmrLguYve EIK7j3JyIj86P52u IHdpZHRoPSIxNSUiIHZh lUwjjs2xnP0xIb5+PGNv iSL6wBO2mT0lHnFbNhZ3 FCymI406XjHdfFTv Ijbdz8pub7bonVv1ZtRz HAPpafBlmOanFTT1v7Gj Vf84R8LxqWxfg0FoXbu8 aq74hFRkj7V2qIW9 Q7VuWVObakrusGRroCzn GH4wMAPpwwlfLWLgaV5g AFVuO5z3TyQuAwT2CSzh E5TbffX4KJCayOHy HSZgsUJMxP4lpjovh7gu ltxyHlAeCZMtJBl7PKp5 JDRpqJteGsCkJER5NeE2 AFP4gRWghU5juMpa yqjhlF0nYbi+BXX3tOAr jSJCJX7uMvavhWF+PHRk JDS8lHlnUXocDAVjbN5v HKTnB8r2MpWmVlW7 CUzbY4FuvwY8MGHmcUXx JTLdcAMWbJ1hlvbou9fg djfdYbZxINHyGAo1BFj8 LWFsaWduOiBsZWZ0 JrM2KAN2jIKdaA0tdHtp vncmhK6dAyt+QmlydGgg AGO7IRx9K6MgAls7WETr pCcxOZ6kgDUwPIje Dl4xpXomyWecCZ8nPPPo ktdak889AjKho8ceMIAr oUZoVNtnVOS4W22wf9X5 WYToMZRnCSP1yIW0 uF4ndWhoegzntFGibJlu zbDtzYrjCVfsMKalG456 RSBuzMxlYuWyFKe8S7Jt Rag8CIKhsJgiNZ4w eRXdQHjlJr7weYyliHsp CI7sNHYysyayb414EdNn b1tyPDAixQCwFTxhSRN8 A20ro7K4JGUvZXHg WWN1wGM7oS8xrUsitaed bGVmdDsgdmVydGljYWwt DNsjL060HILpoPitKpRm tRo7P3NxJdz2PFWv wMgtFS2aeVOzIPvmSh7e vIexaFflQA0rCLUooyoo x534AtPax3aeXPGksQBx VEoxGRJ5R64ap1U3 ADHgQGHgZDY4aRU1oV6y bGlnbjogbGVmdDsgdmVy nIjyJPqyIDppV705DMBj cDsnPlBhdGllbnQg RJqqNZp7N6PyRmydmYL+ SB74AAJeSK70cSCdoGCq k6uziAz2HqIpJCAcPLM9 vFkcCNbxm3SbQZYw Q17mzGZjv5R4KWQjhFzd oRVnLzZdoFY0gW1sGQeq ccofq3yszoxqBczjh6cn la14vC54N35oDQaq ZHRoPSIzMCUiIHZhbGln tv2crB5gGh3+PGNvbCB3 qUJ3vD0hTXCaTvM8IKlm G450GkDweAKpKhqk x0qki6jmcIf0ObA5OQEb bbCkoWbwSUR3i1NxMu62 C30bFDihELYtVTSyTTQz UZKpdMduvb1xmY3i Ii8+CEXgsKV1zEI4qF8j TcMzYhZ0DJlkS292MlDi sYSkDinyS80fL1LkmIT+ YBAxZzv4QOZflPby DW3lcFHkXEcyDi0oZHG7 FtYrZnMsCJppX1OyZEWj dqenwxhhqJV8AJKeMACg bV96Gp0ysDokMZCo jLDHhJ6vdinix4krbyop PmTiLNHuISm2YDv6XAKj qLkxEyQeSXE6JmO1SQS2 gSFzvO8ueWizkyfq mV9sC9ZzSVGaqmvhHw66 cF3bWrKyBsO9PSgiQng+ TUlMTEVSLCBNQVJBIFM8 G8AfUzg5HYWgbOvo TM6mcKHwGSjxDk2guWqn uMjoRV7pYSGsqxqxOCMy jD9sNTBfkSBrzGriVC1t BWKlixykm285OrTk EDX1KCNdoEQnY9MvxK0z IkVlKNYzXJNmZ2XjtIUx ASfzU343WKkcMpP8ETQa oqMzL0ZjBOFoeZqb RjT3e8R6Fy5dTo4eQx0c FWmqLI02CX38hENji6J8 aJN9D9QsGFRomzdwdmkz eQV8YKAeDAUwsU02 vGXgSCsuCx6zx8X6y718 IHPuMILqdE27Rb1ahLrk SCTyxDFJnI4fdquhc9xs cjogIzAwMDAwMDt0 HVt5AAAuwJfoYuOgRXF0 KwI2WUS8kADeqP4uyRqh rtsmnO0oCmy+NTUgWWVh szV6F9UdUdy8HBOz tZspTA2wqPRbIHazBe3s eRzjnSwiDJ4aKCDuopjs JJPzyO0mDWNyuRCwtBza LP8cHBCgbxrdm358 EzDuEAJ9MBXpaHCjK1Mt jH6lUaMyNEDaEDZgG2Ov bDGrDHcmG116CTddUwX4 MJSsnlXjN1HyJEXm gRokSxF5a7W6Rl8BAK9G UPU3H2RtBdy1BUDzoKvi GV0ogYDeTXwhDs7oqIlo fXyrUV2mJGQuvufa VKKzfT3xBENdzSUrwYlv JS6iPDCnxmvit974QvZw UME4AFHocKEbC0GpkM6x DgFzUMEgHJEaG8Kh xACsKGrmH515FHqsFxH8 ZTGgfvPoL9QzVYJpxDfj EvA9f6P7Yv0PWHmuqZA+ CB66lr54E4NdCjux Pdn2OXVcDDF8fSH3aS8d GDSlEYplq2A1cIF7X6Kf upLwzp8uo2bxBZFdDCkz F95nmYWzr1X5AXWd vQE9LJMnvZnoHqLjlF06 Oyc+UGVonIcjx9HzTupp y5xfv3fnxGj9HzJlKSBl agSyvWmxGIO1e5Do Xh55N19xVIjfJIQnNLQn CJXwVHSbaBarwy2iuP7h Ii8+CASpxAQ9hLB1rM8l WzWjTcQ9IGtgI970 GlIjcWHqFqftl4pry6cs zPr2PnKuVVCqiaCynWpn WKZ2u8VrLr54D9IbpJet t2OvWim2sp38nFXv s7T2rWI2H5GvEOFvmctx uGUoqRleQU0vJSJimnda WOJrbG2aALJrZ3i3FmKa CyE9PEfpG0DvjdT7 AYAvwFXvHTQavCZXsZ0q zfdyn4mxlwmtZgJrVOHc JQn4QKx6GMRwsBitIeQz AJI3YbP8OOQ6rCYl oM9lbSjzvciyaT2fDrc+ TTb2w9cmoYMtWO5qzWI6 GC92RR55tVVee9A6kQQ2 Z3PnNREogqhatsed mEZ9OMGbUMCvyV34Hb6g oYxmLx7cJZFuYCP5FTAw hFAhU5FniS2cZmGqGKIk HYAzR0VzqYNrHDug Q081IHjiQpJ8FMSrjpSi W6RlEFFpcCswHfW5x6N7 Lh8OSP53XQ30BN20xSEt q1O2uCF5X9QpVDIh hnznytcdfEG7PLOuHJGi kJ66Jx5mlMmiDy3wSLFs DYD5NUUjcULsO1OdbY6d NbNoZJOrRFTjO0Yz wQQvSSmnU948LElgYzG4 CQSjweGxV9SlMHJmiJsn VtL9j4U2Vu6EYl99OE91 PD03dMAbh9O7bCM7 U4TvCLFuyudugrjgpNE9 NSQdBYBnvW87Yh1uaMjk Lv8uAPZmZEG8QZBuuEEi S9BetZ7uUgPhAVVp LJLiZ8UqjOHsATzdN965 JOjuWpL8OMHicvQmR8Yh MZKvjKuqVvF4e1Z2Nt6K OIadpwa0N3EuXlfj dHI+TO20TXHuOH77nSHl nGVfi4ayuPp8IsAaSTUg RZO3hHegWWpzl1XePASy M91qmOKmm5X8SVMt bGx (more content not included)... [facility] US Kidney/Bladder Completeon 09-05-2024 US Kidney/Bladder Complete EXAM: US Kidney/Bladder Complete HISTORY: Dysuria, Proteinuria, unspecified COMPARISON: None. TECHNIQUE: Grayscale and color FINDINGS: The right kidney is normal in size, contour and echotexture measuring 12.3 x 5.5 x 5.3 cm. the cortex measures 1.2 cm. 1 cm right renal cortical cyst. No solid cortical mass or hydronephrosis. Normal color Doppler flow. The left kidney is normal in size, contour and echotexture measuring 11.2 x 5.1 x 5.3 cm area the cortex measures 1.3 cm. No solid cortical mass or hydronephrosis. Normal color Doppler flow Urinary bladder: Prevoid volume 307 mL. Post void volume: 0 Ureteral jets: Visualized bilaterally IMPRESSION: 1 cm right renal simple cortical cyst Final Dictated by: Shiva Wadsworth MD Dictated DT/TM: 09/09/24 9:51 Signed (Electronic Signature): Shiva Wadsworth MD 09/09/24 9:53 am Technologist: [facility] HgbA1c Standardon 08-29-2024 .Hb 11.[address] [facility] Comment on above: Performed By: #### 1 [id number] #### [facility] (DEFAULT) [address] [place] [address] .Hgb A1c 0.74 g/dL Invalid Interpretation Code [facility] Comment on above: Performed By: #### 1 [id number] #### [facility] (DEFAULT) [address] [place] [address] Glucose [Mass/Vol] 177 mg/dL Invalid Interpretation Code [facility] Comment on above: Performed By: #### 1 [id number] #### [facility] (DEFAULT) [address] [place] [address] HbA1c (Bld) [Mass fraction] 7.8 % High 4.6-6.2 [facility] Comment on above: Performed By: #### 1 [id number] #### [facility] (DEFAULT) [address] [place] [address] Provider Orderson 08-29-2024 Provider Orders [id number] #1.00OTGTIFF [facility] Provider Orders [id number] #1.00OTGTIFF [facility] POCT urinalysis dipstick onl yon 08-27-2024 External Poct Urine Bilirubin Negative [facility] External Poct Urine Blood Negative [facility] External Poct Urine Glucose Large [facility] External Poct Urine Ketones Negative [facility] External Poct Urine Leukocyte Esterase Negative [facility] External Poct Urine Nitrite Positive [facility] External Poct Urine Ph 6 Pr [facility] External Poct Urine Protein Large [facility] External Poct Urine Specific Graham 1.03 [facility] External Poct Urine Urobilinogen 4 [facility] Interpretation and review of laboratory results Abnormal [facility] URINE CULTUREon 08-27-2024 Bacteria identified Cx Nom (U) CULTURE RESULTS 50-100,000 ORGANISMS/mL NORMAL UROGENITAL BORA [facility] Comment on above: Performed By: #### U C #### [facility] ([facility]) [address] [place] [address] VIR NM GASTRIC EMPTYING SOLIDon 07-01-2024 NM GASTRIC EMPTYING SOLID * * *Final Report* * * DATE OF EXAM: Jul 01 2024 12:32PM N 0017 - NM GASTRIC EMPTYING SOLID / PROCEDURE REASON: Nausea * * * * Physician Interpretation * * * * SOLID MEAL GASTRIC EMPTYING STUDY 07/01/2024 12:33 PM: CLINICAL HISTORY: 53 years old Female patient with history of nausea. TECHNIQUE: 1.0 mCi Tc-99m Sulfur Colloid was given orally in a meal consisting of 4 ounces of egg beater 2 pieces of toast 1 ounce of jelly and 8 ounces of water, consumed over 5 to 10 minutes. 1-minute posterior and anterior spot images of the stomach region at times 0, 1, 2, and 4 hours were obtained. Geometric mean was used to plot a time-activity curve. RESULT: Solid study demonstrates: - 95% gastric retention at 1 hour (normal range, 37-90%), - 68% retention at 2 hours (normal range, 30-60%), and - 0% retention at 4 hours (normal range, 0-10%). IMPRESSION: NORMAL RATE OF GASTRIC EMPTYING OF A SOLID MEAL. Box Toe Stitcher: JULIO Transcribe Date/Time: Jul 01 2024 12:33P Dictated by : AMERICA AVILA MD This examination was interpreted and the report reviewed and electronically signed by: AMERICA AVILA MD on Jul 01 2024 12:34PM EST [id number] CN Normal [facility] Stomach Views for gastric emptying solid phase W radionuclide Rd 07-01-2024 IMPRESSION: NORMAL RATE OF GASTRIC EMPTYING OF A SOLID MEAL. Box Toe Stitcher: JULIO Transcribe Date/Time: Jul 01 2024 12:33P Dictated by : AMERICA AVILA MD This examination was interpreted and the report reviewed and electronically signed by: AMERICA AVILA MD on Jul 01 2024 12:34PM EST [facility] * * *Final Report* * * DATE OF EXAM: Jul 01 2024 12:32PM N 0017 - NM GASTRIC EMPTYING SOLID / PROCEDURE REASON: Nausea * * * * Physician Interpretation * * * * SOLID MEAL GASTRIC EMPTYING STUDY 07/01/2024 12:33 PM: CLINICAL HISTORY: 53 years old Female patient with history of nausea. TECHNIQUE: 1.0 mCi Tc-99m Sulfur Colloid was given orally in a meal consisting of 4 ounces of egg beater 2 pieces of toast 1 ounce of jelly and 8 ounces of water, consumed over 5 to 10 minutes. 1-minute posterior and anterior spot images of the stomach region at times 0, 1, 2, and 4 hours were obtained. Geometric mean was used to plot a time-activity curve. RESULT: Solid study demonstrates: - 95% gastric retention at 1 hour (normal range, 37-90%), - 68% retention at 2 hours (normal range, 30-60%), and - 0% retention at 4 hours (normal range, 0-10%). [facility] Provider, [facility] - 07/01/2024 * * *Final Report* * * DATE OF EXAM: Jul 01 2024 12:32PM N 0017 - NM GASTRIC EMPTYING SOLID / PROCEDURE REASON: Nausea * * * * Physician Interpretation * * * * SOLID MEAL GASTRIC EMPTYING STUDY 07/01/2024 12:33 PM: CLINICAL HISTORY: 53 years old Female patient with history of nausea. TECHNIQUE: 1.0 mCi Tc-99m Sulfur Colloid was given orally in a meal consisting of 4 ounces of egg beater 2 pieces of toast 1 ounce of jelly and 8 ounces of water, consumed over 5 to 10 minutes. 1-minute posterior and anterior spot images of the stomach region at times 0, 1, 2, and 4 hours were obtained. Geometric mean was used to plot a time-activity curve. RESULT: Solid study demonstrates: - 95% gastric retention at 1 hour (normal range, 37-90%), - 68% retention at 2 hours (normal range, 30-60%), and - 0% retention at 4 hours (normal range, 0-10%). IMPRESSION IMPRESSION: NORMAL RATE OF GASTRIC EMPTYING OF A SOLID MEAL. Box Toe Stitcher: JULIO Transcribe Date/Time: Jul 01 2024 12:33P Dictated by : AMERICA AVILA MD This examination was interpreted and the report reviewed and electronically signed by: AMERICA AVILA MD on Jul 01 2024 12:34PM EST [facility] Radiology Study observation (narrative) [facility] NM Stomach Views for gastric emptying solid phase W radionuclide POOrdered By: [facility] Provider on 07-01-2024 [facility] CNPNon 06-28-2024 CNPN Telephone (AVXRMO) NAILA BELTRAN ([id number]) 1970 F Date Time Provider Department 06/28/24 YAS ROY AVXRMO During your visit today, we recorded the following information about you: Yas Roy CNMT 06/28/2024 2:01 PM Signed Spoke with PT to confirm apt and to explain the exam and any prep. Allergies As of Date: 06/28/2024 Noted Allergy Reaction ASPIRIN 16 - Unknown HEPARIN ANALOGUES 12/22/2011 16 - Unknown KEFLEX (CEPHALEXIN) 02/06/2010 4 - Hives PENICILLIN G 02/06/2010 4 - Hives Date Reviewed: 02/02/2024 Reviewed by: Yumiko Tong, RT(R) - Fully Assessed Reason for Visit: Radiology NM [[id number]] Prescriptions as of 06/28/2024 - apixaban (ELIQUIS) 2.5 mg tab(s) Take 1 tablet by mouth two times a day. - pantoprazole DR (PROTONIX) 40 mg tablet Take 1 tablet by mouth two times a day. - metoprolol tartrate, short acting, (LOPRESSOR) 50 mg tablet Take 50 mg by mouth two times a day. - tiZANidine (ZANAFLEX) 2 mg tablet Take 2 mg by mouth every 8 hours as needed (neck pain). - lubiprostone (AMITIZA) 8 mcg capsule Take 1 capsule by mouth two times a day with meals. - iv contrast (will be provided with radiology [...] in the CT contrast administration guidelines link. - enteric contrast (will be provided with radiology test) For CT ABD/PEL W IVCON Routine order Administer, As Directed One Time Only, via Oral, Rectal, both Oral and Rectal, Enteric Tube, Stoma or Indwelling Catheter, Enteric Contrast as designated per enteric contrast guidelines - glyBURIDE (DIABETA) 5 mg tablet Take 5 mg by mouth. Takes 1 tablet with each small meal. Usually about 3 per day - cetirizine (ZYRTEC) 10 mg tablet Take 10 mg by mouth. - Fluticasone Furoate 27.5 mcg/actuation nasal spray fluticasone Fluticasone Furoate Active 1 SPRAY Intranasal Daily June 13, 2017 7:29am 06-13-2017 [facility] (88891) - sitaGLIPtin-metFORMI N (JANUMET) 50-500 mg per tablet Take 1 tablet by mouth twice daily with meals. - aspirin 81 mg chewable tablet q 24 HR. - albuterol HFA (PROVENTIL HFA, VENTOLIN HFA) 90 mcg/actuation inhaler Ventolin HFA 90 mcg/actuation aerosol inhaler - levETIRAcetam XR (KEPPRA XR) 500 mg 24 hr tablet Take 1,500 mg by mouth daily at bedtime. - atorvastatin (LIPITOR) 40 mg tablet Take 40 mg by mouth once daily. - Comp.Stocking,Thigh, Long,X-Lrg misc Wear stocking daily - Multivitamins ORAL Chew None Entered Problem List As Of Date 06/28/2024 Noted Resolved Hypercoagulable state [D68.59] 01/16/2013 Vascular disease [I99.9] 11/15/2017 Anticoagulated [Z79.01] 02/06/2020 HLD (hyperlipidemia) [E78.5] 02/06/2020 Coronary artery disease of [place] artery of [place]*02/06/2020 Diabetes mellitus type 2 (HCC) [E11.9] 02/06/2020 GERD (gastroesophageal reflux disease) [K21.9] 02/06/2020 Personal history of DVT (deep vein thrombosis) *02/06/2020 Fatty liver [K76.0] 02/06/2020 Morbid obesity (HCC) [E66.01] 02/06/2020 Seizures (HCC) [R56.9] SOB (shortness of breath) [R06.02] PVD (peripheral vascular disease) (HCC) [I73.9] 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] History of COVID-19 [Z86.16] 03/04/2020 Obesity, Class III, BMI >= 40 [E66.813] 03/15/2020 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*06/13/2023 Gastroparesis due to DM (HCC) (HCC) [E11.43, K*06/13/2023 Obesity, Class II, BMI 35-39.9 [E66.812] 08/09/2023 Anxiety [F41.9] 08/09/2023 PTSD (post-traumatic stress disorder) [F43.10] 08/09/2023 Encounter Status:Closed by YAS ROY on 06/28/24 [facility] Coding Summaryon 06-24-2024 Coding Summary HTMLBase 64 QgbxzqyjJPn2uVi+PGhl YWQ+VN9TWPYxM47hjQYx kG6pG0OPZUrBPqsaRLZK HHiNKrWmqnKvQM4syCUf ZXJu IC8+FP9xDOJkUdbibYYe y0Z4pOU9Q78vmf6pWKkh uVQ3WCMcFqHenhqhy9jv dLx8LQhzDgfbHpGm ZGXvwA40GTR9aR01Lu77 jLJbdORkr1xsvBn6TgUx MEIyJXR9tIscOUlnj4Es ULEmT75sqESoy8F5 IGNvbGxhcHNlOyBlbXB0 wT6pZOwtdtggd0nmfgtc Jvo6fw96dQQjf9X8bLL5 S0LgmzN0EPGqfXIj MrrmsMLOrO9emzyvv7nv xqejOdQgAJUrUIj8UVn9 GKDoaQkaGcMjVM25JRZ1 NSSzcdRgZ6UuYEJm wAkkHoY7i5D6Wc9CD8HC LlbgO0QGHIYBHGbgcQD+ XU52pb86E2YcQvuzAxp2 VMIbUPE7lKT0eA0a QECjNGugh3F6zML7Z2Wx iaZcxs2ki5fjALAgLHip S02ivCBom4W8PZGcxZQ0 OPCroQbuAlKqpH18 Oyc+ODIkxCuso4AcZdjx l8jxe7icmFx7PdmxVIXz atTwrJgvBRW6x6OzPg6x XJBkaNY9yBT7nO7x WbDjVlL7RCkdW636CjJj yOIkLwbzG60vI9QwpNM+ XRVfRmt0RHJaeUsaHW3e N5VgNCYrulnvqMQv rByqFR3dSCAaaiopYSWv zL2bVEGqV1v9KfNpFdJ2 ZPqkQ7PzNFUjcwpuMm67 xJ3tWjEiQhC1TAtg S7VighI1VETuaBOmLVbp YAY7R59bn6S5FNFxGDDy XEW3uTL4zY7nlYpcfxhk bGVmdDsgdmVydGlj XFmeXKrpH847MEPulIcj PkNvZGluZyBEYXRlOiAg MDQvMjgvMjAyNTwvdGQ+ UPMhBVH2cVjjTXEw aNUcIQinYw6ohFicjOgm UN7bYZWdilxgMCTpoQ6d FHPmuNJmxRrmTW0ySAAs qgefo919QqXaZBO9 DIUzsZRwA9McoW6yPjEn DBXyKDZbN9UipHRnCIhs R657KVlgFdB5YAQddbEd Y7EnGSXtqHrkYjI1 g7O8Lv7Dm8BduwlmJ5Bh vJLcWtHvPipkJBh2G3Le PjwvdHI+BB30QRSsVT36 HZw8FEM2aMetZItj DYZkG9ZozI4uSmSfZDCz ZGRkOyc+PHRhYmxlIHdp ZHRoPScxMDAlJyBzdHls YX7yCr2fTJWiRSMk uMmfqSIsCkApf2dlZWYf HAfsVZ9isQzhU3XrbMC1 XXNrs3p2Yd01J46qL7Bf dXA+ONMmgNA1qMR6 mB5qYbDeJrD5VUwgG102 UcItySTwRtrti9mou9hs pVr4VdO1SRWtigJynDlf BDW4x7UpSo05O10u IHdpZHRoPSIxNSUiIHZh mHktcz6ycB0uGo2+PGNv yTN8vPM5jV7uGvBdTsX9 USgqV478FaMreTMi Eozka3fre6fzhGp8IxSs JSRiwaEqfXbmDXS6l8Kz Ge39R7NusKvap7CtJiz6 wu74mBYyq9K9gBD3 G2TlLHIvqrqowSCnhPqk QR2rWHNhwmeaNVEcbE4c VTAqS9w3TdIhHuS6TMvm R3LksaX0RMRfpBQn LLBgzUEIpL8hrgzsj5eh tcbvKeSwRBGgCFp0WCv6 LZPnuVmlLeQhAOY4IwE2 UNT0vJIvwT5leGvi ryfunG5pOvl+LTS8uKSl vTWVPM8mQxqnlLE+PHRk HWQ7uQugQIarXIEleH8i ERChT6e5CzZcVjA8 RGwaO8MpngJ4UYZveBCm MAEpdMQWnB5ecybae0wl ghvuWyNfERJyUYt3JOc9 LWFsaWduOiBsZWZ0 XpB4NIV0rNOxyC9sjPyh zjmssA1cKvm+QmlydGgg MTJ5ZMv2J3OdTsb0SCGz tZirWF4neASgGTwo Ck7tyGzhbEswND9sOWMg ohcvp458GrMkr7hhWSNv qHWeJMyaPUD3Q37yv3T6 LCDdWNXgYBW6rYB0 lO5ysWjqezkfdWGqzTnc drUrmAeuLPfgUQooB790 UDGzoLesWdSwIQu3T0Cj Vba3NCLyzEfkPS6z aZMrYYrgUj6riAtwzHgh HK8kUOFjdhkdv474RuGx g7maCFFfePPiOAxtLCY5 X21pv1M9SBEcEKEe MPW7hJF3zR2wbXnxqtya bGVmdDsgdmVydGljYWwt LYgqV167YWVdjImsObUh cZi8S5LzFiq7ZFQv rGyfGY9jsYVjIHrcGi5v bGijuVzjFP0vYQPtvwax r682ZbEaz9wnHFLztFWo TZdvZGB3O96my7F2 UOEfIZTpXZW4mYS6aG4l bGlnbjogbGVmdDsgdmVy oFhyWPxpLRjrH209FEDb cDsnPlBhdGllbnQg MXdeYKs5E4XoJuednJM+ PD71JBTaIP27hBSajPMt d8ejvEv1MaGrAHQoRAZ7 eYfkPFcob2MyEMHm U46hmUZfg4D7JIRblRoa pEMhEaXmkGN3lA0kSQlt wgigy1cppmcaGvlem9jv gk97oL87U98uDDqy ZHRoPSIzMCUiIHZhbGln dq3yxN6uMe2+PGNvbCB3 oWH0eW5qWEUfRrY1ICwz O303BnThoMViGhob p0pir1scwIm1NoA0KCLx xqNxbEaaJDX1b6XlLo93 E18tYTdnVTAaAUJeDGWt QEAbgLhjyb9cdD4c Ii8+BWUccMA3gUY0tV5s AcMqViB3QWksX863IkNc zXDuDtzgI57cY1SqxEM+ CUAiDnt5CJNhuLzo NM7nlTWsCOtwFu6xUVG6 EcHpLvCiWRiuT2XbHCTu fkpvrnwevLT8EGNjXIBr uZ62Ol1zpYhcBGZh eUWQfE5zvliqj1vumltn SdNsGZRvXUe1LSe3HVWi kLcvReQnVST8NpN5JVL1 uGGjyE9ozTatbrrm zH5gW2YjJMNfdliiZj81 bK1xNoBcVoU7DNyoIdc+ TUlMTEVSLCBNQVJBIFM8 P0BqZes3GQZstOyv AC6xlYPiBMspPp5xzDgk gTwpLU9eLNSckmozXNCg tX4eQEYohAEefDrvNK4c VGNmhsfmy821LbTv XIE5XWKezMAaA6MskD7g AsEkKZMjMBEiX6DubLYd MTkkS639JSteDbT4COOn rqLsC2LvCFYlbEop XkB9g4S7Re0jCg0iYb0m EWtgYB66LL49fJRxq1H8 wYO7H8ZkXEGxehnspvay bCI6KUXlTNMzaF19 kMRzOKzqLr7xr0D4r308 QWJrHIKtnB99Fr5tmLnw GKRntEIOfQ6ipbhjm7ca cjogIzAwMDAwMDt0 ULq5HSHupJafKgSfGZX0 UeG6YUC7hTBfiG8syOgo knvbrI6gVlu+NTQgWWVh goW6K5ZfJfs3TMLa aZblRA5zvLYtKVzoNb6v fEmyiHzgFM6uFNFochnf DOBxqG4jPKGpvQMhzGis CP2cBXLfmnhxh446 EyDlSFW0IXFwqGKaG1Xe pD6vNqZwFSHqDVAuJ1Nb qJAePHbiE395BMraCiC2 HEVkzpUpJ5FfAFAe rFtgMjU5h9B4Vu9PMM3N HYM8X7IbKfk4CSTigDqo VP7tqXDfJNuuCo4lxCsr dOypPY5fUZKorkfb FEZkuA3fPTRheKGkqYfw WN8hAVUzyfqiw460IoBt CMD4VGZsrLXnY2GynG2e PuIcXAYnOKZnB0Rx aCDqRFvwW567ABkwIuA0 QBQrweAfR2BxYJYhaXiv IpR0d7B7Iy3MyRRdO2Yg W6x2B4ByPzkgjJS+ IS41AQElEX24bJKdzANs b2ntrEp9AxGoNWAaCER7 hSyoIIauo4KyXOPwS85x tHDyr6F8MMAmfQbd nZWvHyMgkUE9cS9hFSge ebwwt0lswwirChbst1ud aj43jJ86N30nAMpyNPWy PSIzMCUiIHZhbGln jo2rrI9tAs7+PGNvbCB3 xPG4aA0vWgZySvQ8QGtq B743HwWjsOBpUsjkn4yd w2yvySd7NaGkUXDp lgMjiWwqGMN2l0VpMy85 A59yJZgyLNAaWVGkUFHi GBLhlIcajp2gmL2cDt3+ TJ5nz6tjug82jU14 dHI+JZIkCTR8aDjkDYxh EYXepJ8nJMehPwH6ZVGn FdVziE59yAHdGLwcGj0w rKcjvKmaMP7tFCSu ybenq933PzEts6tsNPKo jKTeBYmhQOH3B75yt4V4 JMFeNJShCJJ9cIU5dZ4c bGlnbjogbGVmdDsg ojKfeBigJUkvMHrgN732 DYJgrAzuEnFweFYeN7tt rgIVDT1hRuziwVS+PHRk ASR5cFvsLRpkCPHv jH9hMYNxG6m3MfGcIlA7 EDvrK1QttjA8DOQezPMl OGOwrNGVoZ0gyklzt9qn cjogIzAwMDAwMDt0 WFe8OQPixDtyRqLjNDV1 VaO5JSH4aNAnuH9vhLbh odbadS0sRxu+RklOOjwv dGQ+TXCwMBT0gHzk WHccGWQiiG2sQLMqJ5w0 ScAgSpV6UTfdY4UjauK9 WGJlpZOsARQwoRZGqT3q fttby8vbslksCaHy ICCbEDk7CRr9YUMzkMvl BwBkWXC8UaC8GDA9jAZg uA8kcPtwutfspX5nHbw+ TVJOOjwvdGQ+PHRk RND7tGegTOogNCPzmC2z LXRrL0y1MmWaMhU5VOhy N6TyewE5LZBczPGzLTJt vQWUyK9mavgxa4cc oijdYhUgZTMlBNy5ZHn9 RFAkfEhnDmWxFJU7PkL2 QGE9qRLclJ2zsGdtmepx mG0zZhb+TYH6OBQ9 JY63BS61I2YaOajqpJAf bGU+PHRhYmxlIHdpZHRo ROuuVGAvOqMhoQlmBJ6h Mf5pXMSmEJUhaFoh cHN (more content not included)... Normal 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 Her surveillance imaging shows that the vein bypass is occluded. She did not notice change in her symptoms, she had pain and swelling even when the bypass was patent. She has been on Eliquis. She has continuously been using compression stockings leg elevation exercise. I discussed with her continue compression therapy leg elevation exercise weight loss. I will prescribe her a lymphedema pump since she has been trying conservative management for more than 12 months without relief Review of Systems PHQ Score Initial Depression Screen Score: 0 SCORE Constitutional: no fever, no chills, no sweats, no weakness Skin: no Jaundice, no rash, no lesions, nopetechiae ENMT: no ear pain, no sore throat, no congestion, no hoarseness Respiratory: no shortness of breath, no cough, no orthopnea, no wheezing Cardiovascular: no chest pain, no palpitations, no edema Gastrointestinal: no nausea, no vomiting, no diarrhea, no GI bleeding Genitourinary: no dysuria, no hematuria, no discharge, no pain Musculoskeletal: no back pain, no trauma Neurologic: no headache, no dizziness, no numbness, no weakness Psychiatric: no sleeping problems, no irritability, no mood swings/depression. Heme/Lymph: no bleeding tendency, no bruising tendency, no petechiae, no swollen nodes Allergy/Immunologic: no seasonal allergies, no food allergies, no recurrent infections, no impaired immunity Additional ROS info: Except as noted in the above Review of Systems and in the History of Present Illness all other systems have been reviewed and are negative or noncontributory. Physical Exam Vitals & Measurements HR: 55(Peripheral) RR: 18 BP: 124/70 SpO2: 97% HT: 67 in HT: 170 cm WT: 246.036 lb WT: 111.6 kg BMI: 38.62 General: alert, no acute distress Skin: warm, dry Head: no trauma, normocephalic Neck: Trachea midline, no adenopathy, no tenderness Eye: normal conjunctiva, sclera clear Cardiovascular: regular rate and rhythm, normal peripheral perfusion Respiratory: Lungs CTA, respirations non labored Chest wall: no deformity. Gastrointestinal: soft, non distended, no tenderness, no guarding. Back: No tenderness, Normal ROM, Normal alignment. Extremities: no edema,no deformity, no trauma Neurological: oriented x 4, LOC appropriate for age, motor strength equal & normal bilaterally, sensation equal & normal bilaterally, speech normal Psychiatric: cooperative, affect appropriate for age, normal judgement, normal psychiatric thoughts. Assessment/Plan 1. Venous insufficiency of both lower extremities (I87.2: Venous insufficiency (chronic) (peripheral)) I discussed with her continue compression therapy leg elevation exercise weight loss. I will prescribe her a lymphedema pump since she has been trying conservative management for more than 12 months without relief 2. 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 I will prescribe her a lymphedema pump since she has been trying conservative management for more than 12 months without relief Follow-up No qualifying data available Problem List/Past Medical History Ongoing No qualifying data Historical Anemia DVT Epilepsy Factor V Leiden mutation Procedure/Surgical History Koko Filter, Stents. Medications aspirin 81 mg oral tablet, 81 mg= 1 tab(s), Oral, Daily atorvastatin 40 mg Tab, 40 mg= 1 tab(s), Oral, Daily busPIRone 15 mg Tab, 15 mg= 1 tab(s), Oral, q8hr Eliquis 2.5 mg oral tablet, 2.5 mg= 1 tab(s), Oral, BID glyBURIDE 2.5 mg Tab, 2.5 mg= 1 tab(s), Oral, BID Jardiance 25 mg oral tablet, 25 mg= 1 tab(s), Oral, Daily Keppra, 1000 mg, Oral, Bedtime Lantus, 10 unit(s), SubCutaneous, Daily metoclopramide 10 mg Tab, 10 mg= 1 tab(s), Oral, Daily metoprolol 25 mg ER Tab, 25 mg= 1 tab(s), Oral, BID Multi Vitamins oral tablet, 1 tab(s), Oral, Daily ProAir HFA, unknown, Inhalation, QID, PRN Zyrtec, 10 mg, Oral, Daily Allergies Keflex (Hives) heparin (unknonwn) penicillin (Hives) Social History Alcohol - Denies Alcohol Use, 07/30/2009 Never., 06/23/2024 Substance Abuse - Denies Substance Abuse, 07/30/2009 Never., 06/23/2024 Tobacco - Denies Tobacco Use, 07/30/2009 Never (less than 100 in lifetime) Tobacco Use:., 06/23/2024 Family History COPD: Mother. Congenital heart disease: Negative: Mother. Diabetes mellitus type 2: Mother and Father. Heart failure: Mother. Hypertension: Mother and Brother. Normal [facility] Comment on above: Result Comment: Elec tronically Signed By: Cesario COLÓN, Yanni Jensen\.br\Date and Time Signed: 06/24/24 09:05 EDT XR Shoulder Complete Righton 06-18-2024 XR Shoulder Complete Right CLINICAL HISTORY: Right shoulder pain. RIGHT SHOULDER 3 VIEWS: FINDINGS/IMPRESSION: 1. Mild right AC joint osteoarthrosis is noted, with an 8 mm x 5 mm degenerative subchondral cyst in the distalmost right clavicle. 2. No fracture, malalignment, or other acute bony abnormality is seen. Final Dictated by: Carlos Alfredo MD Dictated DT/TM: 06/18/24 11:52 Signed (Electronic Signature): Carlos Alfredo MD06/18/24 11:53 p Technologist: KATHERINE KAPOOR [facility] CBC W Auto Differential pane l (Bld)on 06-10-2024 Basophils (Bld) [#/Vol] 0.03 10*3/uL Normal <0.[address] [facility] Comment on above: Order Comment: Speci men Type: BLOOD SPECIMENOrdering Facility: [facility] Address: [address] [place] [address] Performed By: #### 5 7021-8 ####[facility] [id number] [place] [address] Basophils/100 WBC (Bld) 0.4 % Normal C [facility] Comment on above: Order Comment: Speci men Type: BLOOD SPECIMENOrdering Facility: [facility] Address: [address] [place] [address] Performed By: #### 5 7021-8 ####[facility] [id number] [place] [address] Differential cell count method Nom (Bld) Auto Normal [facility] Comment on above: Order Comment: Speci men Type: BLOOD SPECIMENOrdering Facility: [facility] Address: [address] [place] [address] Performed By: #### 5 7021-8 ####[facility] [id number] [place] [address] Eosinophils (Bld) [#/Vol] 0.17 10*3/uL Normal <0.[address] [facility] Comment on above: Order Comment: Speci men Type: BLOOD SPECIMENOrdering Facility: [facility] Address: [address] [place] [address] Performed By: #### 5 7021-8 ####[facility] [id number] [place] [address] Eosinophils/100 WBC (Bld) 2.4 % Normal [facility] Comment on above: Order Comment: Speci men Type: BLOOD SPECIMENOrdering Facility: [facility] Address: [address] [place] [address] Performed By: #### 5 7021-8 ####[facility] [id number] [place] [address] Erythrocyte distribution width (RBC) [Ratio] 13.9 % Normal 11.5-15.[address] [facility] Comment on above: Order Comment: Speci men Type: BLOOD SPECIMENOrdering Facility: [facility] Address: [address] [place] [address] Performed By: #### 5 7021-8 ####[facility] [id number] [place] [address] Hematocrit (Bld) [Volume fraction] 39.6 % Normal 36.0-46.[address] [facility] Comment on above: Order Comment: Speci men Type: BLOOD SPECIMENOrdering Facility: [facility] Address: [address] [place] [address] Performed By: #### 5 7021-8 ####[facility] [id number] [place] [address] Hemoglobin (Bld) [Mass/Vol] 12.8 g/dL Normal 11.5-15.[address] [facility] Comment on above: Order Comment: Speci men Type: BLOOD SPECIMENOrdering Facility: [facility] Address: [address] [place] [address] Performed By: #### 5 7021-8 ####[facility] [id number] [place] [address] Immature granulocytes (Bld) [#/Vol] 0.05 10*3/uL Normal <0.[address] [facility] Comment on above: Order Comment: Speci men Type: BLOOD SPECIMENOrdering Facility: [facility] Address: [address] [place] [address] Performed By: #### 5 7021-8 ####[facility] [id number] [place] [address] Immature granulocytes/100 WBC (Bld) 0.7 % Normal [facility] Comment on above: Order Comment: Speci men Type: BLOOD SPECIMENOrdering Facility: [facility] Address: [address] [place] [address] Performed By: #### 5 7021-8 ####[facility] [id number] [place] [address] Lymphocytes (Bld) [#/Vol] 2.44 10*3/uL Normal 1.00-4.[address] [facility] Comment on above: Order Comment: Speci men Type: BLOOD SPECIMENOrdering Facility: [facility] Address: [address] [place] [address] Performed By: #### 5 7021-8 ####[facility] [id number] [place] [address] Lymphocytes/100 WBC (Bld) 34.0 % Normal [facility] Comment on above: Order Comment: Speci men Type: BLOOD SPECIMENOrdering Facility: [facility] Address: [address] [place] [address] Performed By: #### 5 7021-8 ####[facility] [id number] [place] [address] MCH (RBC) [Entitic mass] 28.8 pg Normal 26.0-34.[address] [facility] Comment on above: Order Comment: Speci men Type: BLOOD SPECIMENOrdering Facility: [facility] Address: [address] [place] [address] Performed By: #### 5 7021-8 ####[facility]IA [id number] [place] [address] MCHC (RBC) [Mass/Vol] 32.3 g/dL Normal 30.5-36.0 [facility] Comment on above: Order Comment: Speci men Type: BLOOD SPECIMENOrdering Facility: [facility] Address: [address] [place] [address] Performed By: #### 5 7021-8 ####[facility]IA [id number] [place] [address] MCV (RBC) [Entitic vol] 89.2 fL Normal 80.0-100.0 C [facility] Comment on above: Order Comment: Speci men Type: BLOOD SPECIMENOrdering Facility: [facility] Address: [address] [place] [address] Performed By: #### 5 7021-8 ####[facility]IA [id number] [place] [address] Monocytes (Bld) [#/Vol] 0.38 10*3/uL Normal <0.[address] [facility] Comment on above: Order Comment: Speci men Type: BLOOD SPECIMENOrdering Facility: [facility] Address: [address] [place] [address] Performed By: #### 5 7021-8 ####[facility]IA [id number] [place] [address] Monocytes/100 WBC (Bld) 5.3 % Normal C [facility] Comment on above: Order Comment: Speci men Type: BLOOD SPECIMENOrdering Facility: [facility] Address: [address] [place] [address] Performed By: #### 5 7021-8 ####[facility] [id number] [place] [address] Neutrophils (Bld) [#/Vol] 4.10 10*3/uL Normal 1.45-7.[address] [facility] Comment on above: Order Comment: Speci men Type: BLOOD SPECIMENOrdering Facility: [facility] Address: [address] [place] [address] Performed By: #### 5 7021-8 ####[facility] [id number] [place] [address] Neutrophils/100 WBC (Bld) 57.2 % Normal [facility] Comment on above: Order Comment: Speci men Type: BLOOD SPECIMENOrdering Facility: [facility] Address: [address] [place] [address] Performed By: #### 5 7021-8 ####[facility]CL[facility] [id number] [place] [address] Nucleated RBC (Bld) [#/Vol] 10*3/uL Normal <0.[address] [facility] Comment on above: Order Comment: Speci men Type: BLOOD SPECIMENOrdering Facility: [facility] Address: [address] [place] [address] Performed By: #### 5 7021-8 ####[facility]CL[facility] [id number] [place] [address] Nucleated RBC/100 WBC (Bld) [Ratio] 0.0 /100 WBC Normal [facility] Comment on above: Order Comment: Speci men Type: BLOOD SPECIMENOrdering Facility: [facility] Address: [address] [place] [address] Performed By: #### 5 7021-8 ####[facility] [id number] [place] [address] Platelet mean volume (Bld) [Entitic vol] 9.4 fL Normal 9.0-12.[address] [facility] Comment on above: Order Comment: Speci men Type: BLOOD SPECIMENOrdering Facility: [facility] Address: [address] [place] [address] Performed By: #### 5 7021-8 ####[facility]IA [id number] [place] [address] Platelets (Bld) [#/Vol] 221 10*3/uL Normal 150-[address] [facility] Comment on above: Order Comment: Speci men Type: BLOOD SPECIMENOrdering Facility: [facility] Address: [address] [place] [address] Performed By: #### 5 7021-8 ####[facility] [id number] [place] [address] RBC (Bld) [#/Vol] 4.44 10*6/uL Normal 3.90-5.20 [facility] Comment on above: Order Comment: Speci men Type: BLOOD SPECIMENOrdering Facility: [facility] Address: [address] [place] [address] Performed By: #### 5 7021-8 ####[facility] [id number] [place] [address] WBC (Bld) [#/Vol] 7.17 10*3/uL Normal 3.70-11.00 [facility] Comment on above: Order Comment: Speci men Type: BLOOD SPECIMENOrdering Facility: [facility] Address: [address] [place] [address] Performed By: #### 5 7021-8 ####[facility] [id number] [place] [address] CNOVSPon 06-10-2024 CNOVSP Visit (SP) Office ([place]) NAILA BELTRAN ([id number]) 1970 F Date Time Provider Department 06/10/24 10:30 AM STEF MICHELE During your visit today, we recorded the following information about you: Temperature Pulse Respiration Blood pressure 97.2 degrees 72/minute 16/minute 119/77 Weight Height 108.5 kg 1.702 m Stef Michele MD 06/10/2024 11:18 AM Signed DATE OF ENCOUNTER: June 10, 2024 ATTENDING PHYSICIAN: Dr. Stef Michele Some of the elements of this note have been copied from Gardenia Gupta previous progress note dated 06/13/23. All the information has been reviewed carefully. CC: Follow up HPI Naila Beltran is a 52 year old female who presents in follow up with a hypercoagulable state. - August 2008: She woke up from bed and had warm swollen left leg. [facility] diagnosed with DVT. She was negative for hereditary thrombophilias. She had a non-retractable IVC filter placed at this time. She took warfarin for a few months. 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 She was initially on 20 mg but had heavy and long menstrual periods needing an emergent hysterectomy and was then placed on 10 mg dosing. - 2018: Switched to low dose eliquis 2.5 mg BID for insurance reasons. LAC testing at this time was negative - 2019: Grafting #2 done at [facility] (Dr. Scanlon) She is on Eliquis 2.5 mg BID. She has a heart monitor per cardiology for palpitations. She denies any new clots or bleeding issues. She has vascular disease and continues to be followed and treated at [facility]. She recently had a colonoscopy and EGD with biopsies by Dr. Garcia that showed gastritis and possible irritable bowel syndrome. She is struggling with eating foods as many foods just come right back up. Had gastric emptying study which showed moderate gastroparesis. She is seeing GI. 06/10/24: - Doing well. - C/o chronic pain and swelling in the left leg. - EGD in July 2023. - Due for mammogram this year Current Outpatient Medications Medication Sig apixaban (ELIQUIS) 2.5 mg tab(s) Take 1 tablet by mouth two times a day. pantoprazole DR (PROTONIX) 40 mg tablet Take 1 tablet by mouth two times a day. metoprolol tartrate, short acting, (LOPRESSOR) 50 mg tablet Take 50 mg by mouth two times a day. tiZANidine (ZANAFLEX) 2 mg tablet Take 2 mg by mouth every 8 hours as needed (neck pain). lubiprostone (AMITIZA) 8 mcg capsule Take 1 capsule by mouth two times a day with meals. iv contrast (will be provided with radiology [...] in the CT contrast administration guidelines link. enteric contrast (will be provided with radiology test) For CT ABD/PEL W IVCON Routine order Administer, As Directed One Time Only, via Oral, Rectal, both Oral and Rectal, Enteric Tube, Stoma or Indwelling Catheter, Enteric Contrast as designated per enteric contrast guidelines glyBURIDE (DIABETA) 5 mg tablet Take 5 mg by mouth. Takes 1 tablet with each small meal. Usually about 3 per day cetirizine (ZYRTEC) 10 mg tablet Take 10 mg by mouth. Fluticasone Furoate 27.5 mcg/actuation nasal spray fluticasone Fluticasone Furoate Active 1 SPRAY Intranasal Daily June 13, 2017 7:29am 06-13-2017 [facility] ([address]) sitaGLIPtin-metFORMI N (JANUMET) 50-500 mg per tablet Take 1 tablet by mouth twice daily with meals. aspirin 81 mg chewable tablet q 24 HR. albuterol HFA (PROVENTIL HFA, VENTOLIN HFA) 90 mcg/actuation inhaler Ventolin HFA 90 mcg/actuation aerosol inhaler levETIRAcetam XR (KEPPRA XR) 500 mg 24 hr tablet Take 1,500 mg by mouth daily at bedtime. atorvastatin (LIPITOR) 40 mg tablet Take 40 mg by mouth once daily. Comp.Stocking,Thigh, Long,X-Lrg misc Wear stocking daily Multivitamins ORAL Chew None Entered No current facility-administere d medications for this visit. ALLERGIES Allergen Reactions Aspirin Unknown Heparin Analogues Unknown Keflex [Cephalexin] Hives Penicillin G Hives PAST MEDICAL HISTORY Ischemic Coronary Artery Disease (EF 42% in 2019) follows with Dr. Christy Moreland at [facility]/Anjali Peripheral Vascular Disease; stents x 2 (2008, 2011) Carotid artery disease Epilepsy on levetiracetam Obesity Diabetes Irritable Bowel Syndrome PAST SURGICAL H (more content not included)... Normal [facility] Comprehensive metabolic 2000 panelon 06-10-2024 Albumin [Mass/Vol] 4.4 g/dL Normal 3.9-4.9 [facility] Comment on above: Order Comment: Speci men Type: BLOOD SPECIMENOrdering Facility: [facility] Address: [address] [place] [address] Performed By: #### 2 4323-8 ####[facility] LABCLIA [id number] [place] [address] ALP [Catalytic activity/Vol] 129 U/L High 34-[address] [facility] Comment on above: Order Comment: Speci men Type: BLOOD SPECIMENOrdering Facility: [facility] Address: [address] [place] [address] Performed By: #### 2 4323-8 ####[facility] LABCLIA [id number] [place] [address] ALT [Catalytic activity/Vol] 20 U/L Normal 7-[address] [facility] Comment on above: Order Comment: Speci men Type: BLOOD SPECIMENOrdering Facility: [facility] Address: [address] [place] [address] Performed By: #### 2 4323-8 ####[facility] LABCLIA [id number] [place] [address] Anion gap [Moles/Vol] 14 mmol/L Normal 8-15 [facility] Comment on above: Order Comment: Speci men Type: BLOOD SPECIMENOrdering Facility: [facility] Address: [address] [place] [address] Performed By: #### 2 4323-8 ####[facility] LABCLIA [id number] [place] [address] AST [Catalytic activity/Vol] 23 U/L Normal 13-[address] [facility] Comment on above: Order Comment: Speci men Type: BLOOD SPECIMENOrdering Facility: [facility] Address: [address] [place] [address] Performed By: #### 2 4323-8 ####[facility] LABCLIA [id number] [place] [address] Bilirubin [Mass/Vol] 0.7 mg/dL Normal 0.2-1.3 [facility] Comment on above: Order Comment: Speci men Type: BLOOD SPECIMENOrdering Facility: [facility] Address: [address] [place] [address] Performed By: #### 2 4323-8 ####[facility] LABCLIA [id number] [place] [address] Calcium [Mass/Vol] 9.9 mg/dL Normal 8.5-10.2 [facility] Comment on above: Order Comment: Speci men Type: BLOOD SPECIMENOrdering Facility: [facility] Address: [address] [place] [address] Performed By: #### 2 4323-8 ####[facility] LABCLIA [id number] [place] [address] Chloride [Moles/Vol] 101 mmol/L Normal 98-107 [facility] Comment on above: Order Comment: Speci men Type: BLOOD SPECIMENOrdering Facility: [facility] Address: [address] [place], [place] [address] Performed By: #### 2 4323-8 ####[facility] LABCLIA [id number] [place] [address] CO2 [Moles/Vol] 22 mmol/L Normal 22-[address] [facility] Comment on above: Order Comment: Speci men Type: BLOOD SPECIMENOrdering Facility: [facility] Address: [address] [place] [address] Performed By: #### 2 4323-8 ####[facility] LABCLIA [id number] [place] [address] Creatinine [Mass/Vol] 0.84 mg/dL Normal 0.58-0.96 [facility] Comment on above: Order Comment: Speci men Type: BLOOD SPECIMENOrdering Facility: [facility] Address: [address] [place] [address] Performed By: #### 2 4323-8 ####[facility] LABCLIA [id number] [place] [address] Creatinine and Glomerular filtration rate.predicted panel (S/P/Bld) 83 mL/min/1.73m??? Normal >=[address] [facility] Comment on above: Order Comment: Speci men Type: BLOOD SPECIMENOrdering Facility: [facility] Address: [address] [place] [address] Result Comment: Danae mated Glomerular Filtration Rate (eGFR) is calculated using the 2020 CKD-EPI creatinine equation. This equation utilizes serum creatinine, sex, and age as parameters. The creatinine assay has traceable calibration to isotope dilution-mass spectrometry. Refer to KDIGO guidelines for clinical interpretation. In patients with unstable renal function, e.g. those with acute kidney injury, the eGFR may not accurately reflect actual GFR. Performed By: #### 2 4323-8 ####[facility] LABCLIA [id number] [place] [address] Glucose [Mass/Vol] 203 mg/dL High 74-99 [facility] Comment on above: Order Comment: Speci men Type: BLOOD SPECIMENOrdering Facility: [facility] Address: [address] [place] [address] Result Comment: The [place] Diabetes Association (ADA) provides guidance for cutoff values for fasting glucose and random glucose. The ADA defines fasting as no caloric intake for at least 8 hours. Fasting plasma glucose results between 100 to 125 mg/dL indicate increased risk for diabetes (prediabetes). Fasting plasma glucose results greater than or equal to 126 mg/dL meet the criteria for diagnosis of diabetes. In the absence of unequivocal hyperglycemia, results should be confirmed by repeat testing. In a patient with classic symptoms of hyperglycemia or hyperglycemic crisis, random plasma glucose results greater than or equal to 200 mg/dL meet the criteria for diagnosis of diabetes. Reference: Standards of Medical Care in Diabetes 2016, [place] Diabetes Association. Diabetes Care. 2016.39(Suppl 1). Performed By: #### 2 4323-8 ####[facility] LABCLIA [id number] [place] [address] Potassium [Moles/Vol] 3.6 mmol/L Low 3.7-5.1 [facility] Comment on above: Order Comment: Speci men Type: BLOOD SPECIMENOrdering Facility: [facility] Address: [address] [place] [address] Performed By: #### 2 4323-8 ####[facility] LABCLIA [id number] [place] [address] Protein [Mass/Vol] 7.8 g/dL Normal 6.3-8.0 [facility] Comment on above: Order Comment: Speci men Type: BLOOD SPECIMENOrdering Facility: [facility] Address: [address] [place] [address] Performed By: #### 2 4323-8 ####[facility] LABCLIA [id number] [place] [address] Sodium [Moles/Vol] 137 mmol/L Normal 136-144 [facility] Comment on above: Order Comment: Speci men Type: BLOOD SPECIMENOrdering Facility: [facility] Address: [address] [place] [address] Performed By: #### 2 4323-8 ####[facility] LABCLIA [id number] [place] [address] Urea nitrogen [Mass/Vol] 15 mg/dL Normal 7-[address] [facility] Comment on above: Order Comment: Speci men Type: BLOOD SPECIMENOrdering Facility: [facility] Address: [address] [place] [address] Performed By: #### 2 4323-8 ####[facility] LABCLIA [id number] [place] [address] US Lower Extremity Venous Du plex Lefton 05-23-2024 US Lower Extremity Venous Duplex Left Exam Date/Time: 05/23/2024 11:23 EDT Reason for Exam: i89.0;Other (please specify) Report IMPRESSION: THROMBOSIS OF THE FEMORAL-FEMORAL BYPASS WITH ONLY MINIMAL FLOW IDENTIFIED. EXAMINATION: US Lower Extremity Venous Duplex Left HISTORY: Follow-up right femoral femoral bypass. COMPARISON: 09/11/2020 ultrasound TECHNIQUE: Ultrasound evaluation was performed of the left and right common femoral veins and femoral-femoral bypass FINDINGS: Only minimal flow is identified within the femoral-femoral bypass which contains echogenic material compatible with thrombus. The left and right common femoral veins are patent. No soft tissue fluid collections or masses identified. Technical Comments: Ordering Provider: Yanni Nassar FINAL REPORT Dictated: 05/23/2024 12:26 pm Delvis Cassidy DO Signed (Electronic Signature): 05/23/2024 12:26 pm Signed by: Delvis Cassidy DO Transcribed by: HUGO Technologist: NAT Riojas [facility] Mona 04-29-2024 SELVIN Telephone ([facility]) NAILA BELTRAN ([id number]) 1970 F Date Time Provider Department 04/29/24 DASH MARTINE ROLANDO During your visit today, we recorded the following information about you: Otilia Lieberman 04/29/2024 2:34 PM Signed Patient states for the last 4 months she has been fighting sinus infections. She had scheduled the post GES studies and had to cancel it twice. They are telling her she needs a new order in the system as she states she is feeling better and feels she can do the testing now she just needs another order. Katja Rios RN 04/29/2024 3:30 PM Signed Please sign new order and send to clerical to schedule Katja Rios RN April 29, 2024 3:29 PM Allergies As of Date: 04/29/2024 Noted Allergy Reaction ASPIRIN 16 - Unknown HEPARIN ANALOGUES 12/22/2011 16 - Unknown KEFLEX (CEPHALEXIN) 02/06/2010 4 - Hives PENICILLIN G 02/06/2010 4 - Hives Date Reviewed: 02/02/2024 Reviewed by: Yumiko Tong, RT(R) - Fully Assessed Reason for Visit: Orders [681] Primary Visit Diagnosis:Nausea [R11.0] Order(s):NM GASTRIC EMPTYING SOLID [3297060] Order #: [id number] FUTURE Prescriptions as of 05/01/2024 - apixaban (ELIQUIS) 2.5 mg tab(s) Take 1 tablet by mouth two times a day. - pantoprazole DR (PROTONIX) 40 mg tablet Take 1 tablet by mouth two times a day. - metoprolol tartrate, short acting, (LOPRESSOR) 50 mg tablet Take 50 mg by mouth two times a day. - tiZANidine (ZANAFLEX) 2 mg tablet Take 2 mg by mouth every 8 hours as needed (neck pain). - lubiprostone (AMITIZA) 8 mcg capsule Take 1 capsule by mouth two times a day with meals. - iv contrast (will be provided with radiology [...] in the CT contrast administration guidelines link. - enteric contrast (will be provided with radiology test) For CT ABD/PEL W IVCON Routine order Administer, As Directed One Time Only, via Oral, Rectal, both Oral and Rectal, Enteric Tube, Stoma or Indwelling Catheter, Enteric Contrast as designated per enteric contrast guidelines - glyBURIDE (DIABETA) 5 mg tablet Take 5 mg by mouth. Takes 1 tablet with each small meal. Usually about 3 per day - cetirizine (ZYRTEC) 10 mg tablet Take 10 mg by mouth. - Fluticasone Furoate 27.5 mcg/actuation nasal spray fluticasone Fluticasone Furoate Active 1 SPRAY Intranasal Daily June 13, 2017 7:29am 06-13-2017 [facility] (29844) - sitaGLIPtin-metFORMI N (JANUMET) 50-500 mg per tablet Take 1 tablet by mouth twice daily with meals. - aspirin 81 mg chewable tablet q 24 HR. - albuterol HFA (PROVENTIL HFA, VENTOLIN HFA) 90 mcg/actuation inhaler Ventolin HFA 90 mcg/actuation aerosol inhaler - levETIRAcetam XR (KEPPRA XR) 500 mg 24 hr tablet Take 1,500 mg by mouth daily at bedtime. - atorvastatin (LIPITOR) 40 mg tablet Take 40 mg by mouth once daily. - Comp.Stocking,Thigh, Long,X-Lrg misc Wear stocking daily - Multivitamins ORAL Chew None Entered Problem List As Of Date 04/29/2024 Noted Resolved Hypercoagulable state [D68.59] 01/16/2013 Vascular disease [I99.9] 11/15/2017 Anticoagulated [Z79.01] 02/06/2020 HLD (hyperlipidemia) [E78.5] 02/06/2020 Coronary artery disease of [place] artery of [place]*02/06/2020 Diabetes mellitus type 2 (HCC) [E11.9] 02/06/2020 GERD (gastroesophageal reflux disease) [K21.9] 02/06/2020 Personal history of DVT (deep vein thrombosis) *02/06/2020 Fatty liver [K76.0] 02/06/2020 Morbid obesity (HCC) [E66.01] 02/06/2020 Seizures (HCC) [R56.9] SOB (shortness of breath) [R06.02] PVD (peripheral vascular disease) (HCC) [I73.9] 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 CBC AND AUTO DIFFon 04-18-19 ABSOLUTE BASOPHIL 0.0 X10E9/L Normal 0.0-0.2 [facility] Comment on above: Performed By: #### H A1C, 06639-7, 3024-7, 3016-3, CMP, CBCA #### [facility] ([id number]) [address], [address] [place] [address] ABSOLUTE NEUTROPHIL 4.8 X10E9/L Normal 1.5-6.6 [facility] Comment on above: Performed By: #### H A1C, 52397-9, 3024-7, 3016-3, CMP, CBCA #### [facility] ([id number]) [address], [address] [place] [address] Basophils/100 WBC (Bld) 0.4 % Normal [facility] Comment on above: Performed By: #### H A1C, 02173-3, 3024-7, 3016-3, CMP, CBCA #### [facility] ([id number]) [address], [address] [place] [address] Eosinophils (Bld) [#/Vol] 0.2 10*3/uL Normal 0.0-0.4 [facility] Comment on above: Performed By: #### H A1C, 46835-0, 3024-7, 3016-3, CMP, CBCA #### [facility] ([id number]) [address], [facility] [address] [place] [address] Eosinophils/100 WBC (Bld) 2.8 % Normal [facility] Comment on above: Performed By: #### H A1C, 62862-9, 3024-7, 3016-3, CMP, CBCA #### [facility] ([id number]) [address] [address] [place] [address] Erythrocyte distribution width (RBC) [Ratio] 15.2 % High 11.5-15.0 [facility] Comment on above: Performed By: #### H A1C, 01608-1, 3024-7, 3016-3, CMP, CBCA #### [facility] ([id number]) [address] [address] [place] [address] Hematocrit (Bld) [Volume fraction] 40.0 % Normal 35-47 [facility] Comment on above: Performed By: #### H A1C, 39420-0, 3024-7, 3016-3, CMP, CBCA #### [facility] ([id number]) [address] [address] [place] [address] Hemoglobin (Bld) [Mass/Vol] 13.0 g/dL Normal 11.7-15.5 [facility] Comment on above: Performed By: #### H A1C, 65797-9, 3024-7, 3016-3, CMP, CBCA #### [facility] ([id number]) [address] [address] [place] [address] Lymphocytes (Bld) [#/Vol] 2.8 10*3/uL Normal 1.0-3.5 [facility] Comment on above: Performed By: #### H A1C, 13473-4, 3024-7, 3016-3, CMP, CBCA #### [facility] ([id number]) [address], [address] [place] [address] Lymphocytes/100 WBC (Bld) 31.8 % Normal [facility] Comment on above: Performed By: #### H A1C, 78571-5, 3024-7, 3016-3, CMP, CBCA #### [facility] ([id number]) [address], [facility] [address] [place] [address] MCH (RBC) [Entitic mass] 29.1 pg Normal 27-34 [facility] Comment on above: Performed By: #### H A1C, 43036-1, 3024-7, 3016-3, CMP, CBCA #### [facility] ([id number]) [address], [address] [place] [address] MCHC (RBC) [Mass/Vol] 32.6 g/dL Normal 32-36 [facility] Comment on above: Performed By: #### H A1C, 90939-9, 3024-7, 3016-3, CMP, CBCA #### [facility] ([id number]) [address] [place] [address] MCV (RBC) [Entitic vol] 89 fL Normal 80-[address] [facility] Comment on above: Performed By: #### H A1C, 40230-2, 3024-7, 3016-3, CMP, CBCA #### [facility] ([id number]) [address], [address] [place] [address] Monocytes (Bld) [#/Vol] 0.8 10*3/uL Normal 0-0.9 [facility] Comment on above: Performed By: #### H A1C, 73432-4, 3024-7, 3016-3, CMP, CBCA #### [facility] ([id number]) [address], [facility] [address] [place] [address] Monocytes/100 WBC (Bld) 9.2 % Normal [facility] Comment on above: Performed By: #### H A1C, 10340-1, 3024-7, 3016-3, CMP, CBCA #### [facility] ([id number]) [address], [address] [place] [address] Neutrophils/100 WBC (Bld) 55.8 % Normal [facility] Comment on above: Performed By: #### H A1C, 43021-4, 3024-7, 3016-3, CMP, CBCA #### [facility] ([id number]) [address], [address] [place] [address] Platelet mean volume (Bld) [Entitic vol] 7.8 fL Normal 7-12 [facility] Comment on above: Performed By: #### H A1C, 42413-5, 3024-7, 3016-3, CMP, CBCA #### [facility] ([id number]) [address] [address] [place] [address] Platelets (Bld) [#/Vol] 265 10*3/uL Normal 150-450 [facility] Comment on above: Performed By: #### H A1C, 15092-5, 3024-7, 3016-3, CMP, CBCA #### [facility] ([id number]) [address] [address] [place] [address] RBC COUNT 4.48 X10E12/L Normal 3.80-5.20 [facility] Comment on above: Performed By: #### H A1C, 52389-8, 3024-7, 3016-3, CMP, CBCA #### [facility] ([id number]) [address], [address] [place] [address] WBC (Bld) [#/Vol] 8.7 10*3/uL Normal 4.0-11.0 [facility] Comment on above: Performed By: #### H A1C, 07302-4, 3024-7, 3016-3, CMP, CBCA #### [facility] ([id number]) [address], [address] [place] [address] COMPREHENSIVE METABOLIC PANE Zaki 04-18-2024 Albumin [Mass/Vol] 4.4 g/dL Normal 3.2-5.3 [facility] Comment on above: Performed By: #### H A1C, 66980-1, 3024-7, 3016-3, CMP, CBCA #### [facility] ([id number]) [address], [address] [place] [address] ALP [Catalytic activity/Vol] 114 U/L Normal 39-130 [facility] Comment on above: Performed By: #### H A1C, 59093-7, 3024-7, 3016-3, CMP, CBCA #### [facility] ([id number]) [address] [place] [address] ALT [Catalytic activity/Vol] 17 U/L Normal 0-31 [facility] Comment on above: Performed By: #### H A1C, 22758-1, 3024-7, 3016-3, CMP, CBCA #### [facility] ([id number]) [address], [address] [place] [address] Anion gap [Moles/Vol] 11 mmol/L Normal 5-15 [facility] Comment on above: Performed By: #### H A1C, 19327-5, 3024-7, 3016-3, CMP, CBCA #### [facility] ([id number]) [address] [place] [address] AST [Catalytic activity/Vol] 22 U/L Normal 0-41 [facility] Comment on above: Performed By: #### H A1C, 89322-4, 3024-7, 3016-3, CMP, CBCA #### [facility] ([id number]) [address] [place] [address] Bilirubin [Mass/Vol] 1.1 mg/dL Normal 0.3-1.2 [facility] Comment on above: Performed By: #### H A1C, 96645-2, 3024-7, 3016-3, CMP, CBCA #### [facility] ([id number]) [address], [address] [place] [address] Calcium [Mass/Vol] 9.5 mg/dL Normal 8.5-10.5 [facility] Comment on above: Performed By: #### H A1C, 66309-9, 3024-7, 3016-3, CMP, CBCA #### [facility] ([id number]) [address] [place] [address] Chloride [Moles/Vol] 98 mmol/L Normal 98-109 [facility] Comment on above: Performed By: #### H A1C, 21887-6, 3024-7, 3016-3, CMP, CBCA #### [facility] ([id number]) [address] [place] [address] CO2 [Moles/Vol] 29 mmol/L Normal 22-32 [facility] Comment on above: Performed By: #### H A1C, 46098-5, 3024-7, 3016-3, CMP, CBCA #### [facility] ([id number]) [address], [address] [place] [address] Creatinine [Mass/Vol] 0.93 mg/dL Normal 0.40-1.00 [facility] Comment on above: Result Comment: METH OD TRACEABLE TO IDMS STANDARD Performed By: #### H A1C, 32327-8, 3024-7, 3016-3, CMP, CBCA #### [facility] ([id number]) [address], [facility] [address] [place] [address] GFR/1.73 sq M.predicted among non-blacks MDRD (S/P/Bld) [Vol rate/Area] 73 mL/min/{1.73_m2} Normal >59 [facility] Comment on above: Result Comment: Reported eGFR is based on the CKD-EPI 2020 equation that does not use a race coefficient. Performed By: #### H A1C, 61966-8, 3024-7, 3016-3, CMP, CBCA #### [facility] ([id number]) [address], [address] [place] [address] Glucose [Mass/Vol] 222 mg/dL High 65-99 [facility] Comment on above: Performed By: #### H A1C, 62064-9, 3023-7, 6-3, CMP, CBCA #### [facility] ([id number]) [address], [address] [place] [address] Potassium [Moles/Vol] 3.1 mmol/L Low 3.5-5.0 [facility] Comment on above: Performed By: #### H A1C, 27120-0, 4-7, 3016-3, CMP, CBCA #### [facility] ([id number]) [address], [facility] [address] [place] [address] Protein [Mass/Vol] 8.3 g/dL High 6.0-8.0 [facility] Comment on above: Performed By: #### H A1C, 42974-4, 3024-7, 3016-3, CMP, CBCA #### [facility] ([id number]) [address] [place] [address] Sodium [Moles/Vol] 138 mmol/L Normal 134-146 [facility] Comment on above: Performed By: #### H A1C, 59186-1, 3024-7, 3016-3, CMP, CBCA #### [facility] ([id number]) [address] [place] [address] Urea nitrogen [Mass/Vol] 10 mg/dL Normal 5-23 [facility] Comment on above: Performed By: #### H A1C, 54005-6, 3024-7, 3016-3, CMP, CBCA #### [facility] ([id number]) [address], [address] [address] FREE T4on 04-18-2024 Free T4 [Mass/Vol] 0.72 ng/dL Normal 0.61-1.60 [facility] Comment on above: Performed By: #### H A1C, 11015-9, 3024-7, 3016-3, CMP, CBCA #### [facility] ([id number]) [address], [address] [address] HGB A1C (GLYCO-HGB)on 2024 Glucose [Mass/Vol] 249 mg/dL Normal [facility] Comment on above: Performed By: #### H A1C, 47256-9, 3024-7, 3016-3, CMP, CBCA #### [facility] ([id number]) [address] [address] HbA1c (Bld) [Mass fraction] 10.3 % High 4.4-5.6 [facility] Comment on above: Result Comment: NOTE ADA Guidelines Result HgbA1c Normal : less than 5.7 % Prediabetes : 5.7 % to 6.4 % Diabetes : > 6.4 % Use with caution in patients with abnormal hemoglobin variants as the half-life of red blood cells and in vivo glycation rates are affected. Performed By: #### H A1C, 51719-1, 3024-7, 3016-3, CMP, CBCA #### [facility] ([id number]) [address], [address] [place] [address] Lipid 1996 panelon 5 Cholesterol [Mass/Vol] 98 mg/dL Low 150-[address] [facility] Comment on above: Performed By: #### H A1C, 49441-7, 3024-7, 3016-3, CMP, CBCA #### [facility] ([id number]) [address], [address] [place] [id number] Cholesterol in HDL [Mass/Vol] 18 mg/dL Low >39 [facility] Comment on above: Result Comment: HDL <40 mg/dL - High Risk HDL > or = 40mg/dL- Desirable HDL >60 mg/dL - Negative Risk Performed By: #### H A1C, 44449-8, 3024-7, 3016-3, CMP, CBCA #### [facility] ([id number]) [address], [address] [place] [id number] Cholesterol in LDL [Mass/Vol] 54 mg/dL Normal <130 [facility] Comment on above: Result Comment: LDL <100 mg/dL - Desirable LDL >160 mg/dL - High Risk Performed By: #### H A1C, 54309-1, 3024-7, 3016-3, CMP, CBCA #### [facility] ([id number]) [address], [address] [place] [address] Cholesterol in VLDL [Mass/Vol] 26 mg/dL Normal 0-30 [facility] Comment on above: Performed By: #### H A1C, 70986-0, 3024-7, 3016-3, CMP, CBCA #### [facility] ([id number]) [address], [address] [place] [address] CHOLESTEROL:HDL 5.4 High 1.0-5.0 [facility] Comment on above: Performed By: #### H A1C, 85353-7, 3024-7, 3016-3, CMP, CBCA #### [facility] ([id number]) [address] [place] [address] Triglyceride [Mass/Vol] 130 mg/dL Normal 27-150 [facility] Comment on above: Performed By: #### H A1C, 41877-8, 3024-7, 3016-3, CMP, CBCA #### [facility] ([id number]) [address] [place] [address] MICROALBUMIN - ALBUMIN:CREAT ININE URINE RATIOon 04-18-2024 ALB/CREAT RATIO NOT CALCULATED Normal 0.0-30.0 [facility] Comment on above: Result Comment: Result for Albumin/Creatinine Ratio cannot be reliably calculated because urine albumin and or urine creatinine is below the detection limit of the assay. Performed By: #### M ALBU #### [facility] ([id number]) [address] [place] [address] Albumin DL <= 20 mg/L (U) [Mass/Vol] mg/dL Normal 0.0-1.9 [facility] Comment on above: Performed By: #### M ALBU #### [facility] ([id number]) [address] [place] [address] URINE CREAT 88.03 mg/dL Normal [facility] Comment on above: Performed By: #### M ALBU #### [facility] ([id number]) [address] [place] [address] TSH Qnon 04-18-2024 TSH 6.79 uIU/mL High 0.49-4.67 [facility] Comment on above: Performed By: #### H A1C, 30167-7, 3024-7, 3016-3, CMP, CBCA #### [facility] ([id number]) [address], [address] [place] [address] Coding Summaryon 03-12-2024 Coding Summary HTMLBase 64 MacezpesJJr2wFz+PGhl YWQ+MT0DUZVtE60qmWUz sB6sM5SHBAaTDegeTDBP BXyORyHlffDaTG5pqLGr ZXJu IC8+JY5uVTDhBmqryZLn t0M5kBE1T73drv0gHPsa zNZ7AIDjMcJopptxk8np nFp6HMbtWfwxYkVi WXCqkJ87NWE1qI28Iy83 fECkfUIwg8gypCv1QkXq WPLtOUZ7bAyfQCugl6Ow YVPxB26dzWXed4Q7 IGNvbGxhcHNlOyBlbXB0 fM2lORxkeryuj9gvurmv Coq9kx37tJBov1C5oAB7 U3TrzmF0MPRvkZXh PwezqRZBuH1kfojiv3rl wszmJyAsHRVzOWc4APe5 XXCvaXjcWdJiSD43BDR5 QNAoriOvA9LtUMYd nAqpDhO9z9A7Ng1XG0MK JnptK7BSIVRIQTpbzZM+ RN63rv74V0FlUiiuAtt6 PLIeOVJ4cYH4nC1t ATBsLZdhh4A2cCB8G1Dw fgHayj0kx0fdNPUrUMlx B24zjOGst8I8ZZYwzVQ5 EJSzhOvpRbAqwK05 Oyc+BOCqaZfsy0DgNzpm f8gob8fufTz8UjmlAKEr efTjnSwaZQP5m6LiTa7n ZGNvqBZ8xBW0hF7e WpLiQfT0YQiwJ600TcOk hOHbPdvvE66oE7TvoRN+ YORmRkm7NIUsfMzhCV4y J7LdCIPzlmgiiTCl mRkcXY4iDZQnksotHTPw eJ5qZDVxI4n3VzJbTmK0 APtkJ3OdJDElotshBq84 sM1nNcPuQaT7JEtu T6TnwuS4LJDzcPSmVShy GEY4I63ot4U2RROxJIAo PQN1aUI1bL0ngHgyplmc bGVmdDsgdmVydGlj FOrzEHdjJ482ZLZudJig PkNvZGluZyBEYXRlOiAg MDEvMTQvMjAyNTwvdGQ+ OQWiDXB8lAotMGSn fCHcPPneWf4amYtseYhw AJ6oBBIomcakNYNwtW1d JTCjiFBbkMquNL3xJYPj dkmcl147UeRgEXY9 TBVtwLOaI1AcrO4dAjOr QPIqLHIiD8IayTWjGXqu N382MZysIpK5FLGapwEl Y0AyTBXiuPsaXgF3 o5C1Kt8Qv5PaoukhW3Av dWArSvCjAnxzKNh4R9Sh PjwvdHI+WI47QPHoIJ31 SAg7OGE6gEcbCNov TOCjG6XsnR4qPhHrZEQl ZGRkOyc+PHRhYmxlIHdp ZHRoPScxMDAlJyBzdHls WC1iKt4jWYBaGZSz lFoakDKrCeYti6eoOQWd PMrzKB8oiQonP5McmII5 MYIio6c7Ky45F21xZ1Vj dXA+ADJkeBH4cFD0 vY6cNiPmYyW7NIlfD855 PnUstBIsNyrog4emg8eu aGa0TvM9BZFdcyXblNcr IKA8l3NnHh00U60b IHdpZHRoPSIxNSUiIHZh iQanyr9ssF4iKy0+PGNv vQD8uQI7mY2vMqRtNqO3 KZmkG157YmLtxBMe Dkvea5npa4zfsRx3UoDo CNSluiEpxImaCBP9n0De Ll67Q4WarGvlw5QoFzy3 xk73yTSoy7X6dOP4 X2KhMETzjdvfbNLprHys SY3pBATtkzmqMMJoaW0e YRVlU2y6CgKtUuD4KCoq P2TykbU5MHYghXAt WGZrfGBEzM4ilqpfh9wy vnhfNdOqILObHPs5MRy5 HSEaiTvcYsRkHAF9OvW9 YFL5yPBpsY9cjEtg rfxreI6eZdo+XTR0kDGn kDNFRM8tVpjeqXI+PHRk KWA0sVwhUJtjECXqnE4r EGFvM5k8QeUlPqO0 CIebV6SpwaN3VOEbrXQc IEGqnDKMqH2ydipau0kl fheyJgTqRVMuLKb5RRj6 LWFsaWduOiBsZWZ0 WxB7IPM9jFRipF1rcSpz pxholP8tPpm+QmlydGgg GHG6MXg4D8YyAfy5UUPb dVjeYR6ooMHcRRgm Ou8saTghsLllFS7eSSCe ebkyb278TqStm5wlTZXz aGQrHIchWFU3M74da7Y5 IZHmPWSlRVZ8pKQ3 zI7nqDymhwanlNUicLpg byHblTxmAHddNSflD091 PRCkrJvvZfXqPNh0J9Yq Wrn3SJRknFbzIE9o gZEuRTmqIl5alFwruNkc OG8fLEMkowwnk582LpMx y7tgLBLnjIFlTNjaBMT8 R10xd8U9OTPcZUCt EQD0jTY0lK3byGhrsrng bGVmdDsgdmVydGljYWwt HFerJ251MXUyzVwwIkZl nXl4W3TpKnk6IEOl aHrbNW6ohWVwEQynQn8k vXcboKlxOU5kKRZnyzub v742DmXml3sxHQPahCRb XRjcPAU9G86mo7T8 HCYxUPPuWPQ6cAU9zZ4i bGlnbjogbGVmdDsgdmVy hArgUWhfRDftM185QJFr cDsnPlBhdGllbnQg QGeaPJq8Y2TpGwdqzGE+ GI45SLMhVI58uSIleSIw u3iagFp8OtNhEKNpOOE7 lHcuUDxpw3UbYEPm B26nxVTbn9T7AITrnVrg dGTmYxHwoTY8vB6iTHhd mhqgk6tlscayXkuet9op ox02dH26S77xLYkt ZHRoPSIzMCUiIHZhbGln md5ygH2oUn7+PGNvbCB3 qNV7dP4xMASkUnS1OLel Y837HiRzyGJzIzys k4swe5ixiCh3WnM4DOBy vkHrcPvkSBU5g6JgWf41 U71wREmbBJAhXOMwWRQg RIFuaKywuh3cxI4v Ii8+FRErpOK6iNV3pV4m UuYjZqH4XNumE738MpTj gZGqHouoO44cT3VgrAO+ PJRwJeq1BGWglMnt YH6kmOLxIHzpBs5yPIP8 DaTtEdKhZDelI6XaWYQv ouktcsdliNM8JZNkFVAt rF22My1maHypDPXp qGRLxI4kcyqcr5bjaxdn BaOxMDWlNLf2WLh2CUCz tVsiJaMmKXY9TrY5XUD3 aCTjxQ0xxNremdrd oP3yC3NtYPVngiwfIv45 sQ2iBjIySlF2QEbnKfh+ TUlMTEVSLCBNQVJBIFM8 B5XdPnk1JGKinVsg IG5naIPhVSosLp9cgXvw hMdyJE3yDZOtqkdhIPDr uS4pFXGhjUIgxVdcTC9k UHOucelck400MjIy LRM6PZJjpLIiW9KgvG8v GbQsHPXcSCZpE3BewMAi UWspT352ICcwDgK5RSEv caSnO4OsJPHbrNuh TvM8c7L3Cg7yZs0rCr6c MJpkLL78WH18pCVlp0D0 eEK3B2DcRMEhnvddcwjm gGP7EECcNBLbwJ10 xRNoMLixAo6zw2Q3o424 CVWfRMAunT05Ql4nqXtm RKAxcMIFyQ0nilkjj1dp cjogIzAwMDAwMDt0 JZi4PNOhtXwlIhOlRAS0 RyR9RWF7zEYsjD0ysNkw pthzxG6wVvq+NTQgWWVh bbE1M7DmPdx1FDRf aOkeGQ0heEKuLNnrCc3s yCakjJuzMM2sXLVutpwk DTWkmC9uKXCeuXKzxAtl GD0eSKVqimcog461 DaGkKZC3BLIfxCQbT2Di mF4ePbOrNXFsSZVaC0Vy mXKiMXidB659TOdoOiO6 RWWgwkNoC5NiJWSn gZmuHvH5t5E7Hm7VHT3K SCN0C1ZaCdn3ILKntVli IG2kfZEuFQvpPw2ooEhv iHuqDO9kMOUjvwff JOLfyF2nZUHctDKstPxi FA8qLXXybghjz076UgZj GJH7WMMwsWAmM1QqjC3f TcPkXKXxSDSwX5Sm nDDvDEinL340QQrfTuP6 KTSjxzXcD3LyKDGemQdo IwL1d1L5Xq7OgSEsW7Hr E5b8I3BuZpeggWH+ QW58KOIdMV63fEHiwMNc t8mwrFg0KaHlXIRlGDM5 jIagRAxlz2OlJMPeQ12p zJPgc8N0SEWoyZox lWAnNtZbyAU6pN3oSObx gbuzd4rtatwpHpxxp4wd yr39yI46Y73jWObjJCNy PSIzMCUiIHZhbGln dw4phI5zIj8+PGNvbCB3 xXB1hE2aHhLqVvW1XPlp U566UxOqrVTdRowcn3tp y5dkiVe3WyEpUVHr wjVonEnzWRA1r0PzOc07 V94tVRskCEDbFSDpZYLy IBXhlNdcfj5ovZ0yFf1+ TL4hk3mnzp91bH28 dHI+DHVsFFR6dLtcKTqe OMMgpK1nWQmoEqP9AVRs DlCutU90kOPdYTqoQh8q uEveyVggNG3eOQSh fdded158DfBos6sdPLKh lAJvENkcOKE9N20vc5I3 RJTgXFYrBAX2jFK5zW3q bGlnbjogbGVmdDsg hgMxyUokEOcwXLhcY771 SVHmcUhtMrFltIVgF8iz vqMBYK0eTwyemWS+PHRk XSP1kIuuURgjDNXn bF3eDSEzU0m9WeRgMpU0 BOqoB3VfgcY2VTBnwEMs WMGzzWVCbK4uazbhu5fo cjogIzAwMDAwMDt0 GNv4XRSrvZpsLbErBOF1 KpI4CFP6nAXkcI2kqTis rbugrS7aZmr+RklOOjwv dGQ+BAZkUZX2gJyo HMpkQDTjvW3vOONfT9o3 IyWfGfG0GQzdF5LlvsM3 FFUbhHLmECInmUOXpT2s aguef7wrmjlbZbRr VPTzETp1FLu8VDWqgIxc LgKtJVW4JjR9SHC4eVXe mU8raNhrrnfufH2wPzn+ TVJOOjwvdGQ+PHRk CZL3hVceDJwvQJOfeH2t DCVyV5o2QoLzZoX4XTqi K0CgolU2GLBwuJBlRSNk kJBFgB8oytyje6sc ludeItWwSSUoTHx6RFz0 LZWfbNrbGqFbFAF9RsS7 QZK3oXXvpB9llOjuvjjd uG9aCuy+WKE4ABI1 AZ26JB41T4LtKgpdhCZh bGU+PHRhYmxlIHdpZHRo JZeoQSVyVuIxfVzpTF5e Dp3mPROeJUJyzEfz cHN (more content not included)... [facility] Coding Summaryon 03-11-2024 Coding Summary HTMLBase 64 GflbbbcmZCy9lJb+PGhl YWQ+SR2WAHUvB84kfNYa zA2zC2GHHGpLPfgyZHBL RYvZVgSwxpWgSU6awHPh ZXJu IC8+FF7fSSUrKtkwhZZx d8B2oJV8G61kts3aCAkd pGD5WFQsNxMhqmtvi5su xUu6ZMzbZbnjAjIt AZMicU29QYA1iW95Pk33 vDMarOGka8vfaWq5CuIe UDJeNUI1vCwrMIezq7Pi PFAhA67ohOAwo3X6 IGNvbGxhcHNlOyBlbXB0 eV1wHAmtttiiv1pgexsb Mpg2mq63rBMvc2Q1rZY6 U3AgiiU6CXTxxURr CgpmfKWWyW8scetun1ij rvwxXhXxNUMdTDc5TLu9 GJGxaVduOyFxOK72TGX0 MESfyfUaP0XcPZEc aTbjHeA1x9M0Wl4WI9JJ AxdoB1RLOXFGYZperFJ+ DB49ba48E8VpYuwhCpa5 NOBlIWZ4nXG4wU7m DLVdRHxmz9J5yAY3M6Ax owQwlk3qp1yiEXSkXZbi L47vmVJos3I9LGKmyED8 CKIjnZztEmLzvZ64 Oyc+BOFjtUlbx0HfJejm f1pbh9gfaYs7VkjrBCBu bvVaeMrmIHG6l4QqSk0n KPObmEZ7fUK9nY6s HvWxEsD6ONupO337LqYf fXMnFboaH19cU1VpuGE+ PZWpRcj9QMGebNveWZ0k U7TwEYJfiswcgXKq mUdqDN0oBCImwktxTGEz cF7oJJQiI7m2SqXuSnV7 NBjlM8ZjYBIpkvucIj50 mH9nOjCzRdS5JLyk P3ChyyY2JLQhzFZpIJsf SVA7I31ws6Y1FMJoWFNo EAI2lDU5hT0elVqfeesj bGVmdDsgdmVydGlj IQgsUMtzH882UCGkrTzo PkNvZGluZyBEYXRlOiAg MDEvMTMvMjAyNTwvdGQ+ TNNtEBI0rHhlPFYw xDJnEAnxPb4ykWujoDyr CB2xCQMtewpxOTXxeQ2n JIZzrMAinTfdBK5eLBJn eewgi923OnNaQTN6 SKThvGXwN8PxhD4wIsVu REIpKAFwE3TdtICeLZmm P672SBgeXvG9LGSytzTz Q2NlYPKieHnpOmK6 d8S1Ez5Ue5SlxddpI5Qh dBWjGfPsPetuVZe4V2Ai PjwvdHI+ZS69ZAImIM79 RSy8BRH1cTaxBMws XDOwV0LrxE3jNgYqYFAp ZGRkOyc+PHRhYmxlIHdp ZHRoPScxMDAlJyBzdHls QD4hCg0dCSLhTVXo wAhhoAOrZsNmb3ywKCUl GVipDX2lzDxbF8LwnJY8 IDXao2m8Pb43B79vY7Ss dXA+QIRjmKF6hJT3 cC5oOiKuVkR0YFuvM839 QkGihABjMnhdo3pvb4wy nCs5JrD0JBFbxjDquBog YBO4n2MkKo13X08s IHdpZHRoPSIxNSUiIHZh vQlypg7unO5zKk8+PGNv dXT8nYB1vQ4nKlFiTyP6 TGhoJ301OpFqeZHt Ulnqa5viz8zfwQj2TcIn LQPhhlLfgSxwQRV8c9Fp Pb17R4KtvUjwd0DrHxb5 bs13kKPbx4Z0wLC1 X8IvKIGhhrfveKDhtArr JK4jEUFwowhzIRCanV8y WWQhL9e7RaJmKiZ9ACbj H8UgwlS6GCGqmGLg OHRpaICItB0cafphl1kd woxdOdHwPRAkEWe8NIm2 QQVvkHknMrVrFQM1DzP5 KNT9aHYyhH7ieIal fmrrbV0vBws+IVG4bLEv nFBFNE3vYiaioZH+PHRk MSQ8iQokPIneBHUyeR3n SOYyA5n7HdOzMsZ4 UXqsE9IkhaJ8TEMgeLOg HPOdzBLAqL3ehnoiv9ym rpecBkGmJDVjQLr9WNm1 LWFsaWduOiBsZWZ0 WbI2BXO1kOFtfQ7bgVbm wzdzvH2fAnn+QmlydGgg ALU5IHo5Q1AeDsb8MJZk nTlrKW1qcOPmRJju Rg5tpRlznDgnZS7xSHHg iwcls165AdRvj2fxYYZq kEDvBUlkPAG1D56yd5D1 VHQkTCXhDLX7xEC6 oL0ruTyhkuablHMxlRvn tjHdtTrgGHjnZCfnX673 ZZEujXlwCyGeIJv9A3Ra Equ5GQAunDqqOM5a vGMjWPsdBr3rgVgrhQhq US4aIVUzinwaj492TgRf j8gfBFPtjQDzWOjgYED4 Z57kx3W6ZAUfPNHc CLF2fZU5kF9ffAasjkri bGVmdDsgdmVydGljYWwt BUsnU616PXFxeOsgSfXq nOz2I2CkQne1JZTv kUxrPR9quKQdFQjjIt6j xAwisRevXV1wMWDvnjzs z263WdRwa9xyRWJttKZh XPshSSG7O73qh0M7 HALjMEIxWCY6fGE4aA9i bGlnbjogbGVmdDsgdmVy mHvdPBuyAMhfT592HNZn cDsnPlBhdGllbnQg SRdmROf6N7JaXezqoES+ ME18CMEaCZ75iXFumKRw t4yhxGk8FmTdUBBhDWS9 gJavKMrfb3AtCXTz A88mnSBbn7Q3MIBplQwg iJCrGzDpfDA7tN3tPCam dnapx5ukgrniUmbvu3xw ue74eT34P54hNRwp ZHRoPSIzMCUiIHZhbGln jg7niB5wJz3+PGNvbCB3 iKI4fA7rUYYyOkX3SGyb B224FhJtnKQwWaqp k7lsf7jbfYi4CdQ9UQLh tpMqdSowECU5k4HkVg56 K61xWWoyMDLnVZKgCSPk MVJyiYpqii7biJ6u Ii8+CIZhaMB0uWN3aS2d KdXoMkL1TVvhH631UzOj oUZfKjlmM53tV0UgtCL+ VRDhXck9SWXghXzc IQ2icZZcNEtcUm2kRZG4 IfDdNtPfVUxkX9SdBNTi brsolnkhiKV5CQQdFMOl cG67Zv0juUavYYGh vECSoI9bunrnb0utpkqb OgNzDQFcZEs1ZNq8KSSo hTxyGxAePEY3PtT9YYV1 hAIpjQ4meXjgnpmy sT7zK3KvOXTovvxnSy87 nD4gDdEiCmN8ESroBar+ TUlMTEVSLCBNQVJBIFM8 S6OlLkl3PUZleOuv TD9tfJDyGXvcYl5iyEla gUukMC3kNFBpayjtBVLe jX3aICWsuJRsaLemSL9a WBStajuod114GbTf IQV1ZDYxqWMeG7FqkE0j CqJvIVTdOEUpA3GqxQSt BWevX576WLjvGsU9ZNUr mqRsL0MsDHLtsSrv EhF1m1R3Ce7aXv9zHn1j GNmiTA10OD36nDEcd1K1 jGX6Z1QqQLWurxmvdavg uQY5ZIDjNSIoxD69 yNTrVKrfNi5uu5J5f190 OCGzHCPhuX14Fq7fwIgg WCLjqZANzI0sgjogy2yg cjogIzAwMDAwMDt0 EWr8OMTrxQcyIqEsBCQ4 WyR5LRO8lHXiwA9zsDzv ypssmA4gOyl+NTQgWWVh nqF6L9WaQss3KZWu zCtaWK5zlEVtSFzsWv6o aXolaYnxYH6aTVCyluox UFIfvV0aHWUhrBLjiNsu DE4eRRUhxvmft906 RjJiQXC2BZXazNZdP4Tj wK5jHgYpHRYpEAQlU0Ys bZRpLPvwX518QRyuGeA2 SUEwamOiU3DsTGMz pWzjMoM2g1G2Dl2BXZ5F GHU8V8HwSao4IEOozGbb IP5geADhZDmfDv1jeUnz hDfcTO3aPCSiumbd LHEarS6iNEFkmVNxhVwy PZ3xJSHfrcmkt674RmWo PLQ4DCHtrFNhY3YodC6j CjVfQDLtGPIbR9Ih hHMwJGrsW119NDtlCgH6 XWDogtEmB9GfFJObpQft PeW6a8T3Lc4UjWFbN0Ov Z7r8D5MaNzubfXQ+ CE90MVWrJC81mUOktCEc o6exbAi7NuNdYLCwEFY6 dOqaXPiql8SeGCRoP64a rZLos3K7TOTihCoh zMDbEhAurLP9xC0xPNjt ggyij6zrjmjoEgojc1eu fd08yO72G02xWYepSULe PSIzMCUiIHZhbGln jn6lrC0bPa8+PGNvbCB3 gUI1eC2mZxTaEhJ5CMzx Y283NtFlzEHdWhmoc8oh u2crpBb3ToClDNFk jqTxaGvnDMM2t3WtSp56 T59nYEomPISqBWQmLWPv CWFjuEtlyh9isK9xCz9+ MI3wf4zcfu43wD86 dHI+BMQeSKR8gNzxVCue EAZwyL2oNPflMdB6PDAl CgSwfF99wHHhYZkmGx7t sGrtvGufMJ0zJYVe ygjkm552XqQtr7edBRGn cNTqTZmxVBD2F16rj1T1 OQEdYJMfNDT6uLA8wU9p bGlnbjogbGVmdDsg ywWotUcoNFvuYPbxJ450 CBBccDmkQvNldHHqE3wk ypSMUO6dKjrxmAZ+PHRk NEU0cLxdSMjfEBFf bG4iITBgH4y8MaKpJlX0 ANjyS6LqzeA6GUBpcGIi SJZplHNWrK1tofkwn4np cjogIzAwMDAwMDt0 JVu2QAGddLgiHpBpKZH4 UpZ5HVY6nWNdeB7ayFoj xoshoN0jVqz+RklOOjwv dGQ+RQAjJQC1aSzd LMrfNNOnhJ9eYQVxL4h1 MzSrEqT0TQkjW0JfcmQ1 RHBmbXSuIITtwTTAfH2g shrzw6aybfytYjSf AVYjHJp3FLw8ZXZmvTzx IqLsEGK6EwF0FHW7mCAf fR5tjYlztchyrN8uGrq+ TVJOOjwvdGQ+PHRk OZX4mZobVNkvHIUssJ2v RIScH5s0FkVpAjZ5XLsj F2AuwqF4YFQzmRPePWSa gBEZjR3cgrylz0nk ahpgZjLcRZWaWYz5UWg4 HJNhjTmiZdXyHLB8VzJ7 UWB7fRFgkK3erAhsvnxp mR7oRpl+JJT3OFN6 GH47OL80S5WeOrfxzKDn bGU+PHRhYmxlIHdpZHRo QAtiYAFyNuJgdEviNJ2y Lq5pBJRoBAIjjKgo cHN (more content not included)... [facility] Coding Summary HTMLBase 64 OgetkxjvOCp0uOi+PGhl YWQ+ST1VCYJoB76yaDSt yR0fZ0MNGWgZBynsOFSF FLuTWxNxsqUxOS9qlAVj ZXJu IC8+YW4sCNQuBabdjEAo l4Y3nZC1A54ktb3aQIfe rZW5GPUhHgFpbunfe8os pWo1UYftNftoXvWn ONMdzI87AKB1fU75Bj58 vUDmjHNan4tabBm3TaRl UNHtOLR7oUmrSRkmw9Ez GQPtB24kuZVtd7F2 IGNvbGxhcHNlOyBlbXB0 mW8aBNttslbbq8duizob Zyg7vg49vRNaq9K7aZY7 N3OhqqB2YJJkcEXf IhfuhAFOdJ1iawmyn6wn zgibAeKlRIBhDZx1CBj5 RODtkDkzKzJuOB10LXC1 SKYmxhGtS6SdYIBj iZhqZeO3o5I6Cr9MT4VN PnuhF7KFVLYLBCanqEX+ BB83gy74B8AbOctwAgf4 GOXbSGW8oWK6xB9i KRXfYXnkr1M3bWY3D8Xn snKugt0iw4ybEOOvUFcq Y79iiOGmy7Y1NQEfeBW8 ODOrnQcrJyEmoS75 Oyc+XCSgdOpjb8GwNhti b1lym4acsGr2AzvyWWQc rfDwdGceUYF8s7QiWi5l PGNzuJA8iPE9uT1b WnKrBvJ7HFtlW891OmSo cJKhBtzxT14vF6VcnFI+ YNSoUsn1GOEijIeeYS7g G4GsKVLegdwczXKk tBeqTL8gDRMfqetcPWWi gE5yHSAwM5g0ZtMtWaV4 UDptF1GcPONkxcnaSu84 wH4mUiTyRwQ4SRff F4QxtoI6JFIpzEBdQQko ZFD7W19cr5V8RIBwQSCz MNK6wCG6pY1kzXlhdabd bGVmdDsgdmVydGlj RAgpMIngQ983NSAlpZey PkNvZGluZyBEYXRlOiAg MDEvMTMvMjAyNTwvdGQ+ LLOtGWJ9bVlwDEPw oNCzHHeeEb3xrTsunOjn JP0xVKQriosiOCHraM7c ZJBxvBLplSojTF5lGQRi qdesp512EtUoATZ8 VPZtqLYqU4ZyxA4wKaOb RCPpFKImR3GfhFXaBUin U174GUalDtW3SRHudnDu B0QdLKYrtNouNzA3 p7Q8Ek7Mc6NvaqhmD8Yg mSHiDfQbAdihIGa3Q2Ar PjwvdHI+PH37VWIvBL58 VXh0UVR9wTpyIIwb ECFjO2EcdU8vKoEzQCTs ZGRkOyc+PHRhYmxlIHdp ZHRoPScxMDAlJyBzdHls LN1cTj3kFMZnJPIu iHtwwYNcDiXno6ueLTDn NRmlXQ1blWamM1DgdLH2 DOUml8v2Lf52P71kB2Ki dXA+ISTzwNW7uNO9 jJ7bAaFzRcT3ONvzV461 QoAosLFaRctuw8naq7fp qRc2MrH0WAMfdiAgsKfr VDH3f5UlNb10I49j IHdpZHRoPSIxNSUiIHZh eGxing9xuK1zSn6+PGNv qLS6eNE4jB5sEcLeYnV1 MTmoW378XgHixUMu Gjbrp4ukb8mxzAt5NwYf ABWjbeSheNslNET1k0Os Lm83L4YecDjpt9MkNbg2 vu03xMUxv7V6fKC2 O6RwLKRahusotIDfhZvr UH3rTCBkdsbjWXWuoT4s NOWyZ5h7IkIbVgH6YMbi W1NlkzP4RKPjjKZd ZNLyjETLtZ6flussp7me vobnKhEnJQTwWDo2LJi7 OQEtrZmzIrVlZSB6EeZ2 RSW4cDOltC0awHze pkvliH5kWat+WMB2vOBg dYHMDA9dRvavjXD+PHRk GUF9zYmrJDfnYFHtcC6e BNOhD4r3HpLfUvR8 HVhvG0XejyV7KXCknJPq FPYeuRYMvO4atmiki8gc czjvZlWiRAAkAYv9FYe0 LWFsaWduOiBsZWZ0 QmN8BIF1fXYneP6hhDpj idzomA8oPtn+QmlydGgg LUO0FBa3J1IwWbf6HALw gKfrHP7agPPfZGsx Lt7ofZxurEzzBB6rEPJt agurw950IwUej7usAFDj kXHrRXuzAQQ8T31kt8I0 QPSvHMVxCHS2zPH2 aJ1faNstspblbPYqkDco lcPfuRdaTIejQQhyG644 TVRvvLelUoDiDGa0U6Fc Yyv7HFJrdNvxQM3w hJFwGSfrPy0dtYvzoXfh GQ3jJDPthxzrf375VyCa y1xhARNxcZAxOAadMER1 R19oy7D2HHBvTRDp NXC5kLE8nK2isCyisrpv bGVmdDsgdmVydGljYWwt HYigJ935VJLyfQjkZwFo tHr4J0PqEbt6HJIk bSwvBE3xiXNrFDhbTj4f wXkmlPysDE1tNAFpzhna i977CaGzb4hcXZTtcURn GTpiTWU6O21xu7K9 DXNlNWKbZHU2wTB7xE4j bGlnbjogbGVmdDsgdmVy vBitBEwlSZwhG253VSRa cDsnPlBhdGllbnQg CBttNMs7V2MuBjlbxHS+ CV25AMYzKZ45dVCbwVAm e3xjfMa9NoDkYPWyGFU1 vEfiXDmyf3WbOJCj Q93boEOgb3V5REFdePsm hZVlFeGqoTP5sX8oVCrk byvow2qtbeesQhbqz6sx pg94pS09M44oXWrv ZHRoPSIzMCUiIHZhbGln ae2lcB9yFb8+PGNvbCB3 xBP6xV8jZCSnQiE3MSsk U825FvSuwAXtCeuj k9axj9mecQp7GhP6JJEw qwAqnCpdAMO0x1GcJi83 X75xIGjgFNTnELBwJKWf FPYmeGmqye1bsD6a Ii8+OABqgQN7qSH3kH5u KaRoBvK0EEtuZ749XxLy nHElGfraX20lX2IeeJH+ LMVvQiz5IJBraEhy DR6vqAJqCRzdLt6iNOK8 JlBnZcToPFutK3ViSGDv jpbmxncamXK4SBFhIBRe lH15Mw9abJltZNXl tWWFnA0bheaff5ozezra HaXoFNWuBXp8JXu3HLSf cAeeNcGjJKK4KnF1ZQV4 wUJnmH9vwWhecrmh vE0bM3KwWLTnqmxoUo74 sL0aLoUhAlF3GKqxWiq+ TUlMTEVSLCBNQVJBIFM8 P3PhCvd2CFJwwBne WU9nbBQbIIocHu8faMlx tAirHA1jQJAupnquJSRk aL5iHXMdwKNsvHlsLX8a BOErptoug866CcFz CZL2AOIdmTFaP3HasX9n GaVkRRUpDNXyD0MdfWMi QYqkS746DLuiRxW2GWHs jgDqU4CqLIWapFfb LdR6i5F9Jh1uTh2eQx1t KEabAL03KJ78pPVmi6E1 sCI7E3MzTBJwkgndqgtv dTL7ZZIeXBLpqK54 yMPbVIhfJq7gu4D5d019 MZQgAUMjyB26Oa2kfIyo QJWtoPTAkN7zvibyo9na cjogIzAwMDAwMDt0 AIt6UTCvvAokQqVtMTM2 GjI7ZXJ7jKJwzC8nuYqh vgsfwT4jEnh+NTQgWWVh rvL9T5ZaKeo7NWRi pXqoME2mbQWzOLydNy3i sSsdaSlpGR6zXNDpgnnu IBApiR5jADOerXButDsa RK9sYHUabwgbc534 GzAhOCD5TDKcoAWtZ1Xi cK4iFqOzDBMyECYlN9Na iYVbUVfoL838VByuSxC7 GHRgeuFiJ8QsZUFd bTvfDtC8u0N0Vl9HPG7C NLC2D0AoPun7SCEgcWpu ZO7ucCQkYYsvUw2xbHpd jDaqKF8vSMMmaiqs MDGalA3oSYAwtVAjmMiu YR6fKOFchthtu344HrKw XND2WFTzlZRrP8WxwR5p EjSjEODyAFMzG2Cn cLBdNOgcR191KXmgEmE0 HVGxprFpP1WoSVEveUaa JhS3c2U3Ly6EaHFxG1Fb R7k8F3UoBuipgAK+ JE83MGDuBN82fASuaSOy a3cryIl8DiCxVDGkLCB6 bTolSJqqt8VpTTSjA42c cSWdw7K6YGNaxRsi mNUqMzDmaBV2eY4cHRoe lymgp9mgmpluBaqls3pl lt50tT10O63vBUfeXWGo PSIzMCUiIHZhbGln yb8qdO3gSj4+PGNvbCB3 dHG8dA6fXfNePgS3HRbb F956NfAqcKSoOmyeb2zg f8tywBg5BcTvBIPf gbWdpIjoIOZ3z8BfZt01 Q16lGXolHKCgSANzECLg QRFusMvigk1doV0eKb8+ YE5pd5ymsx13yT59 dHI+ZWBbWVJ0oSepBEed OTJyqU2eSAecUvF1IYQl OzArmR16jLUqMJwlKg9h bUtnyIciGB2fHECm mhbkx620DyUlu2liNIMy uQMuBMpgBYN9A28po8X6 TKTvRZItKST2dYU5zN5n bGlnbjogbGVmdDsg buZwuQqvVUlfWDdeT802 TFQslJlgTiYopADkI5hb inIZSH6iAuyrvZU+PHRk CDA1qZxsKQpeVFFq uZ8uOANzP5h9HpEkJyC7 EEmcH0UhjwT8HCOzmOAc COSmrXAVmJ0nyhddx6jo cjogIzAwMDAwMDt0 UPm3HEIigWzxZgLxTEG5 TcB0IZR0sADawX0oeKhw qdzazH5jUgk+RklOOjwv dGQ+SSDxXAG9sWbp UFayHIAzmU2yDGDjX7m2 EtCcLxN8KCzcH7SwyiJ5 LIQudDXjFKNztTQUnE6w enjjo1njoxbeFwNm RCIlSSt6RHq2GZPegIbo SxMfXIS1ClX3GTN2dDXc vV7cmAwvbrugfK4eDci+ TVJOOjwvdGQ+PHRk ICG4pPnoVSxeUQYwoP5z MZRxH8v8XuVlPlC2OAjr D4NgnhC8WKAnmMNyGRNo fHCGoK6nnwwja6jl ahyoKoSuYXAsZVj0KLw6 TAOafBpdJnMtDKR3PnN0 IOB6hLEckA2xsXxktojv xJ0gFfw+RTP6IHK8 RN27CA89O2SuPdvxuJGx bGU+PHRhYmxlIHdpZHRo JPnwJFXoOjOsjRzfDM2t Ll9gHOSaZOUvsUyu cHN (more content not included)... Normal [facility] .Auto Diff 02-29-2024 Auto [place] % 5 % Normal 03-10 [facility] Comment on above: Performed By: #### 1 [id number], 6685685, 6278860, [id number], [id number], [id number] ####[facility] (DEFAULT)[address] [place] [address] Baso Abs# 0.1 x10 Normal 0.0-0.2 [facility] Comment on above: Performed By: #### 1 [id number], 9029367, 8704571, [id number], [id number], [id number] ####[facility] (DEFAULT)[address] [place] [address] 38372 Basophils/100 WBC (Bld) 1.0 % Normal 0.2-2.0 [facility] Comment on above: Performed By: #### 1 [id number], 9504964, 4288324, [id number], [id number], [id number] ####[facility] (DEFAULT)[address] [place] [address] 56597 Eos Abs# 0.1 x10 Normal 0.0-0.4 [facility] Comment on above: Performed By: #### 1 2049164, 6319153, 4143570, [id number], [id number], [id number] ####[facility] (DEFAULT)[address] [place] [address] 57277 Eosinophils/100 WBC (Bld) 1.8 % Normal 0.9-4.0 [facility] Comment on above: Performed By: #### 1 [id number], 3292076, 9051108, 9721157160, [id number], [id number] ####[facility] (DEFAULT)[address] [place] [address] 89426 Lymph Abs# 3.0 x10 High 1.3-2.9 [facility] Comment on above: Performed By: #### 1 0794887, 6986069, 2844013, [id number], [id number], [id number] ####[facility] (DEFAULT)[address] [place] [address] 33419 Lymphocytes/100 WBC (Bld) 37 % Normal 14-48 [facility] Comment on above: Performed By: #### 1 [id number], 7110945, 5728362, 1934751746, [id number], [id number] ####[facility] (DEFAULT)[address] [place] [address] 93217 [place] Abs# 0.4 x10 Normal 0.0-0.8 [facility] Comment on above: Performed By: #### 1 5765904, 0810156, 4360570, 5811626576, [id number], [id number] ####[facility] (DEFAULT)[address] [place] [address] Neut Abs# 4.6 x10 Normal 1.5-9.2 [facility] Comment on above: Performed By: #### 1 5691131, 1075270, 8397679, 4990719944, [id number], [id number] ####[facility] (DEFAULT)[address] [place] [address] Neutrophils/100 WBC (Bld) 55 % Normal 44-88 [facility] Comment on above: Performed By: #### 1 3458608, 0477723, 6289773, [id number], 8304000044, [id number] ####[facility] (DEFAULT)[address] [place] [address] CBC w/ Auto Diffon 5 Erythrocyte distribution width (RBC) [Ratio] 15.9 % High 11.5-15.0 [facility] Comment on above: Performed By: #### 1 4448255, 3898835, 6780873, 5640963614, 7692994753, [id number] ####[facility] (DEFAULT)[address] [place] [address] Hematocrit (Bld) [Volume fraction] 38.6 % Normal 33.7-40.4 [facility] Comment on above: Performed By: #### 1 1040726, 0491225, 5293752, 2962557358, 5325921233, [id number] ####[facility] (DEFAULT)[address] [place] [address] Hemoglobin (Bld) [Mass/Vol] 13.0 g/dL Normal 11.3-15.9 [facility] Comment on above: Performed By: #### 1 7784727, 3283507, 1922484, 0554149542, 6648622309, [id number] ####[facility] (DEFAULT)[address] [place] [address] 32765 Man Diff? Auto Invalid Interpretation Code [facility] Comment on above: Performed By: #### 1 2767430, 8298548, 6865845, 4787841824, 5667848553, [id number] ####[facility] (DEFAULT)[address] [place] [address] 91911 MCH (RBC) [Entitic mass] 30 pg Normal 24-34 [facility] Comment on above: Performed By: #### 1 1177374, 9710988, 5644217, 6250332591, 8050948804, [id number] ####[facility] (DEFAULT)[address] [place] [address] MCHC (RBC) [Mass/Vol] 34 g/dL Normal 26-37 [facility] Comment on above: Performed By: #### 1 0568780, 1458234, 6846973, 4024925424, [id number], [id number] ####[facility] (DEFAULT)[address] [place] [address] 96484 MCV (RBC) [Entitic vol] 88 fL Normal 81-100 [facility] Comment on above: Performed By: #### 1 6657616, 2812436, 2768723, 3603509569, 3685598838, [id number] ####[facility] (DEFAULT)[address] [place] [address] 16516 Platelet 292 x10 Normal 138-427 [facility] Comment on above: Performed By: #### 1 2567142, 8146685, 4388969, 2804817994, 4506284977, [id number] ####[facility] (DEFAULT)[address] [place] [address] 26348 Platelet mean volume (Bld) [Entitic vol] 8.4 fL Normal 6.3-10.2 [facility] Comment on above: Performed By: #### 1 6901500, 7091495, 0945563, 6338181082, [id number], [id number] ####[facility] (DEFAULT)[address] [place] [address] RBC 4.39 x10 Normal 3.70-5.30 [facility] Comment on above: Performed By: #### 1 3071003, 7321209, 3438816, 4282817474, 3353128356, [id number] ####[facility] (DEFAULT)[address] [place] [address] WBC 8.3 x10 Normal 3.5-10.5 [facility] Comment on above: Performed By: #### 1 6419691, 8214803, 8501735, 7084578623, [id number], [id number] ####[facility] (DEFAULT)[address] [place] [address] CMP Standardon 02-29-2024 eGFR Non AA >[address] [facility] Comment on above: Performed By: #### 1 6710798, 3893724, 9746763, [id number], 2996256421, [id number] ####[facility] (DEFAULT)[address] [place] [address] 62677 eGFR AA >[address] [facility] Comment on above: Performed By: #### 1 0256893, 8738919, 3997980, 8225773487, [id number], [id number] ####[facility] (DEFAULT)[address] [place] [address] 20798 Albumin [Mass/Vol] 3.7 g/dL Normal 3.5-5.0 [facility] Comment on above: Performed By: #### 1 [id number], 2489142, 9885427, [id number], [id number], [id number] ####[facility] (DEFAULT)[address] [place] [address] 24227 Albumin/Globulin [Mass ratio] 1.0 {ratio} Low 1.4-2.6 [facility] Comment on above: Performed By: #### 1 [id number], 4636820, 9802929, [id number], [id number], [id number] ####[facility] (DEFAULT)[address] [place] [address] 92026 Alk Phos 102 IU/L High 32-91 [facility] Comment on above: Performed By: #### 1 5779530, 3718608, 0860895, [id number], 1008203465, [id number] ####[facility] (DEFAULT)[address] [place] [address] 60364 ALT [Catalytic activity/Vol] 25.0 U/L Normal 14.0-54.0 [facility] Comment on above: Performed By: #### 1 4572197, 4838395, 8796077, [id number], [id number], [id number] ####[facility] (DEFAULT)[address] [place] [address] 73281 Anion gap [Moles/Vol] 13.5 mmol/L Normal 5.0-19.0 [facility] Comment on above: Performed By: #### 1 3383259, 3644191, 4360520, [id number], [id number], [id number] ####[facility] (DEFAULT)[address] [place] [address] 81717 AST [Catalytic activity/Vol] 31 U/L Normal 15-41 [facility] Comment on above: Performed By: #### 1 7201194, 2095460, 1901327, 2339436135, 4819632606, [id number] ####[facility] (DEFAULT)[address] [place] [address] 26173 Bili Total 0.9 mg/dL Normal 0.3-1.2 [facility] Comment on above: Performed By: #### 1 1771625, 8793206, 3175081, 5624333062, 2902369141, [id number] ####[facility] (DEFAULT)[address] [place] [address] 24220 Calcium [Mass/Vol] 8.5 mg/dL Low 8.9-10.3 [facility] Comment on above: Performed By: #### 1 2124305, 7351145, 4214628, 1834486054, 9633068563, [id number] ####[facility] (DEFAULT)[address] [place] [address] 53305 Chloride [Moles/Vol] 100 mmol/L Low 101-111 [facility] Comment on above: Performed By: #### 1 9264999, 3753599, 6524734, 7052202147, [id number], [id number] ####[facility] (DEFAULT)[address] [place] [address] 90028 CO2 [Moles/Vol] 21 mmol/L Normal 21-32 [facility] Comment on above: Performed By: #### 1 8614021, 1446461, 7797135, 4272216198, 9306833049, [id number] ####[facility] (DEFAULT)[address] [place] [address] 00289 Creatinine [Mass/Vol] 0.94 mg/dL Normal 0.60-1.30 [facility] Comment on above: Performed By: #### 1 7765875, 9581158, 7255752, 4017866497, 6625642661, [id number] ####[facility] (DEFAULT)[address] [place] [address] 00193 Globulin (S) [Mass/Vol] 3.7 g/dL Normal 1.5-4.3 [facility] Comment on above: Performed By: #### 1 6994738, 9415824, 3632446, [id number], 1915640119, [id number] ####[facility] (DEFAULT)[address] [place] [address] 83359 Glucose [Mass/Vol] 246.0 mg/dL High 74.0-118.0 [facility] Comment on above: Performed By: #### 1 7932678, 1846205, 3699144, 9467348652, 8236072973, 7573998685 ####[facility] (DEFAULT)[address] [place] [address] 02511 Osmolality 274 mOsm/L Invalid Interpretation Code [facility] Comment on above: Performed By: #### 1 4477197, 2445061, 0444647, 0378582698, 1714728790, [id number] ####[facility] (DEFAULT)[address] [place] [address] 74079 Potassium [Moles/Vol] 3.5 mmol/L Low 3.6-5.1 [facility] Comment on above: Performed By: #### 1 8321339, 9623147, 3588592, [id number], 6528426043, [id number] ####[facility] (DEFAULT)[address] [place] [address] 04698 Protein [Mass/Vol] 7.4 g/dL Normal 6.5-8.1 [facility] Comment on above: Performed By: #### 1 0383125, 7910320, 2701281, 0655011498, 7898723877, 7243597909 ####[facility] (DEFAULT)[address] [place] [address] 38882 Sodium [Moles/Vol] 131.0 mmol/L Low 136.0-144.0 [facility] Comment on above: Performed By: #### 1 2053408, 3991627, 6682137, 8637241491, 2823687541, [id number] ####[facility] (DEFAULT)[address] [place] [address] 39509 Urea nitrogen [Mass/Vol] 21 mg/dL Normal 8-26 [facility] Comment on above: Performed By: #### 1 1661569, 2066118, 6602105, 5986300371, 4873411007, 4162528956 ####[facility] (DEFAULT)[address] [place] [address] 38915 Urea nitrogen/Creatinine [Mass ratio] 22.3 mg/mg High 4.6-16.2 [facility] Comment on above: Performed By: #### 1 0939860, 7740658, 2107778, 0332273930, [id number], [id number] ####[facility] (DEFAULT)[address] [place] [address] 78400 ED Clinical Summaryon [address] [facility] - Emergency Department [address] [place] [address] 25296 ED Clinical Summary PERSON INFORMATION Name: NAILA BELTRAN Age: 53 Years Sex: FEMALE : 1970 MRN: Acct#: Visit Reason: Increased blood sugar; Nausea; Hyperglycemia; HIGH BLOOD SUGAR Arrival: 02/29/2024 19:59:02 Discharge: 02/29/2024 23:32:00 LOS: 000 03:33 Check In: 02/29/2024 19:59:02 Checkout:02/29/2024 23:32:00 Address: [address] [facility] [address] PCP: HAIDER ADAMSON PROVIDER INFORMATION Provider Role Assigned Unassigned Marcial RN, Nupru Coleman ED Nurse 02/29/2024 20:27:26 Darin Murphy DO ED Provider 02/29/2024 20:30:47 VITALS INFORMATION Vital Sign Triage Latest Temperature Tympanic Temperature Temporal Artery Pulse Rate O2 Sat 95 % 96 % Respiratory Rate 18 br/min 16 br/min Blood Pressure /82 mmHg /82 mmHg MEDICAL INFORMATION Medications Given: Medication Dose Route Sodium Chloride 0.9% intravenous solution 1,000 mL 1000 mL Initial Volume 500 mL/hr IV Left Antecubital Fossa prochlorperazine 10 mg IV Push Allergy Information: NSAIDs; heparin; penicillin; cephalexin PHYSICIAN DOCUMENTATION DISCHARGE INFORMATION: Discharge Disposition: Home Discharge Location: PATIENT EDUCATION INFORMATION Instructions: Hyperglycemia, Jsap-to-Igak Follow-Up: With: Address: When: Cece Hannon [address] [place], [place] [id number] [facility] (ReferStar In 3 days 03/03/2024 Comments: home your tests are good watch your diet closely, but your sugar is not too sohan keep your apt with A Hannon You are welcomed to return anytime. T H KATHERINE< ER PHYSICIAN< H Rigo Marroquin DIAGNOSIS: Hyperglycemia Patient Understands: Yes - Patient/family/careg iver verbalizes understanding of instructions given Comment: [facility] ED Note - Physicianon 2024 ED Note - Physician Patient: NAILA BELTRAN Age: 53 years Sex: FEMALE : 1970 Associated Diagnoses: Hyperglycemia Author: Darin Murphy DO Basic Information Time seen: Date & time 02/29/2024 20:35:00. History source: Patient. Arrival mode: Private vehicle, walking. History limitation: None. History of Present Illness The patient presents with This patient, who is known to me with her as well, presents to the emergency room because her sugar is a little bit elevated, at 250. She was seen here the other day for similar complaint, she states she cannot get that sugar down. States she feels a little bit nauseated with it but otherwise has no pain or nausea or vomiting or urine problems or shortness of breath, she states the real reason she is here is because her told her to come in, and her said the reason she is here is because she was told that anytime her sugar went over 250 she was to come to the emergency room if she could not relieve the elevated sugar. On exam she is pleasant alert and oriented and she appears in no distress, neck is supple no anterior posterior supraclavicular nodes she is easily ambulatory to and from the bathroom air, her lungs are clear, heart rate rhythm is regular murmur, PMI left chest, she has good radial pulses, good dorsalis pedis pulses, there is no peripheral edema, her abdomen is soft without any discomfort, she is not icteric, skin turgor is excellent she is alert and oriented x 4. She is seen in the presence of her . . Medical Decision Making Orders Launch Orders Laboratory: Lactate (Order): Blood, Stat collect, 02/29/2024 20:36 EST, Lab Collect Urinalysis with Culture, if indicated Standard (Order): Urine, Stat collect, 02/29/2024 20:36 EST, Nurse collect Troponin I High Sensitivity (Order): Blood, Stat collect, 02/29/2024 20:35 EST, Lab Collect CMP Standard (Order): Blood, Stat collect, 02/29/2024 20:35 EST, Lab Collect CBC w/ Auto Diff (Order): Blood, Stat collect, 02/29/2024 20:35 EST, Lab Collect Lipase Level (Order): Blood, Stat collect, 02/29/2024 20:37 EST, Lab Collect Patient Care: Cardiac Monitoring (Order): 02/29/2024 20:37 EST, Constant Order Glucose POC (RE) (Order): 02/29/2024 20:35 EST Pharmacy: Sodium Chloride 0.9% intravenous solution 1000 mL (Order): 500 mL/hr, IV prochlorperazine (Order): 10 mg, IV Push, Once Cardiovascular: EKG (Order): 02/29/2024 20:35 EST, Other, Launch Orders Patient Care: Glucose POC (RE) (Order): 02/29/2024 22:41 EST. Electrocardiogram: Time 02/29/2024 21:20:00, rate 68, normal sinus rhythm, No ST-T changes, no ectopy, normal KS & QRS intervals, EP Interp, Today's ekg is compared with that of 09/11/2023, and demonstrates no acuity, emergency room physician reading. . Reexamination/ Reevaluation Time: 02/29/2024 23:27:00 . Vital signs Resting comfortably, reassurance provided, I asked patient and her if there was not any other concerns, but they indicated they were doing well. The next thing is I explained to them that at 250 sugar is relatively close to normal, there is certainly no problem with the sugar going over to 50 that they are not can have any terrible problem with acid or vomiting and that controlling glucose is important but that problems occur more when the glucose gets up to 700, 800, 900, in that range, and that 250 demonstrates good control, she states she is going to have a meeting with her diabetic doctor on Monday, regarding a switch to a different medication to control her sugar. She states that her pump is working well now. She is easily ambulatory discharge, these are nice people. Impression and Plan Diagnosis Hyperglycemia (FLL61-FY R73.9, Discharge, Medical) Known diabetic Plan Condition: Improved. Disposition: Discharged: time 02/29/2024 23:23:00. Patient was given the following educational materials: Hyperglycemia, Kipc-op-Yoms. Follow up with: ; Cece Hannon In 3 days 03/03/2024 home your tests are good watch your diet closely, but your sugar is not too sohan keep your apt with Byron Hannon You are welcomed to return anytime. Manuel MURPHY< ER PHYSICIAN< Jose Marroquin. Counseled: Patient, Regarding diagnosis, Regarding diagnostic results, Regarding treatment plan, Regarding prescription, Patient indicated understanding of instructions. [Electronically Signed on: 03/01/2024 04:55 EST] Darin Murphy DO [Verified on: 03/01/2024 04:55 EST] Darin Murphy DO Normal [facility] ED Patient Summaryon [address] [facility] - Emergency Department [address] [place] [address] PATIENT DISCHARGE INSTRUCTIONS Patient Information Name: NAILA BELTRAN Age: 53 Years Date of : 1970 Reason For Visit: Increased blood sugar; Nausea; Hyperglycemia; HIGH BLOOD SUGAR Arrival Time: 02/29/2024 19:59:02 Primary Care Physician: HAIDER ADAMSON Attending Physician: Darin Murphy DO Comment: Visit Diagnosis: Diagnoses This Visit Hyperglycemia ([id number]) Hyperglycemia (R73.9) Increased blood sugar ([id number]) Nausea ([id number] [id number]) The Pharmacy at [facility] is open Monday through Monday from 9A to 6P and Monday and Monday from 9A to 5P Prescription Information: If you have been given a prescription for narcotics, seek immediate medical attention if you have any difficulty breathing or any sudden status changes such as confusion and sleepiness. If you or anyone you know is experiencing suicidal thoughts, mental health, alcohol and/or drug addiction problems; contact the [facility] 19/09 Crisis Hotline -Text 4HEJQ kk 876811. If you received any narcotics, sedation, or any other medication that causes drowsiness for the next 24 hours, unless otherwise directed: ? Do not drive a car. ? Do not operate machinery such as power tools, lawn mowers, drills, sewing machines, or stoves ? Avoid alcoholic beverages and drugs for allergies, nerves, or sleep ? Do not make important personal or business decisions or sign any legal documents With: Address: When: Cece Hannon [address] [place] [address] Business (1) In 3 days 03/03/2024 Comments: home your tests are good watch your diet closely, but your sugar is not too sohan keep your apt with Byron Hannon You are welcomed to return anytime. T H OMLEY< ER PHYSICIAN< H Rigo Marroquin Medication Information: The exam and treatment you received today in the [facility] Emergency Department were for an urgent problem and are not intended as complete care. It is important for you to follow up with a doctor, nurse practitioner, or physician?s clinic assistant for ongoing care. If your symptoms become worse or you do not improve as expected and you are unable to reach your usual health care provider, you should return to the Emergency Department, we are available 24 hours a day. For those patients who have received Radiology results, the interpretation of your X-ray as given to you by our Emergency Department physician is only a preliminary report. The Radiologist will review your films and if there is a change in the diagnosis you will be notified by phone. Please make sure you have provided a working phone number so we can reach you if necessary. In the event that you had a lab culture while you were a patient in the Emergency Department, you will be notified by phone if there is a need to change your antibiotic. Please make sure you have provided a working phone number so we can reach you if necessary. [facility] Emergency Department has provided you with a complete list of medications post discharge. Please inform your machine room engineer/provider of your visit and for further instruction on these medications. Any specific questions regarding your chronic medications and dosages should be discussed with your primary care physician(s) and/or pharmacist. Medications to Continue That Have Not Changed Other Medications apixaban (Eliquis 2.5 mg oral tablet) 1 tab(s) Oral (given by mouth) 2 times per day. aspirin (aspirin 81 mg oral delayed release tablet) 1 tab(s) Oral (given by mouth) every day. atorvastatin (atorvastatin 40 mg oral tablet) 1 tab(s) Oral (given by mouth) every day. cholecalciferol (cholecalciferol 2000 intl units oral capsule) 2,000 International_Unit Oral (given by mouth) every day. Refills: 0. cyanocobalamin (Vitamin B12 1000 mcg oral tablet) 1 tab(s) Oral (given by mouth) every day. Durable Medical Equipment for Prescription (RA VITAMIN D3 2,000 UNIT SFGL) See instructions. empagliflozin (Jardiance 25 mg oral tablet) empagliflozin (Jardiance) 10 Milligram Oral (given by mouth) once a day (in the morning). fluticasone nasal (!-Flonase 50 mcg/inh nasal spray) 1 spray(s) Nostril-Both 2 times per day as needed nasal congestion. glyBURIDE (GlyBURIDE (Eqv-Micronase) 5 mg oral tablet) 1 tab(s) Oral (given by mouth) every day. levETIRAcetam (Keppra 500 mg oral tablet) 3 tab(s) Oral (given by mouth) At bedtime. metformin-sitaglipti n (Janumet 50 mg-500 mg oral tablet) 1 tab(s) Oral (given by mouth) 2 times per day. metformin-sitaglipti n (Janumet 50 mg-500 mg oral tablet) take 1 tablet by mouth twice a day. metoprolol (metoprolol succinate 25 mg oral capsule, extended release) 1 cap(s) Oral (given by mouth) 2 times per day. multivitamin with iron (Iron 100 Plus oral ta (more content not included)... Normal [facility] Extra Blueon 02-29-2024 Tube Collected Yes Invalid Interpretation Code [facility] Comment on above: Performed By: #### 1 [id number], 8736805, 5940373, [id number], [id number], [id number] ####[facility] (DEFAULT)[address] [place] [address] Lactic Acidon 02-29-2024 Lactic Acid 10.8 mg/dL Normal 4.5-19.8 [facility] Comment on above: Performed By: #### 2 766055 ####[facility] (DEFAULT)[address] [place] [address] 91481 Lipaseon 02-29-2024 Lipase Level 50.0 IU/L Normal 22.0-51.0 [facility] Comment on above: Performed By: #### 1 4013033, 9088753, 0377727, [id number], [id number], [id number] ####[facility] (DEFAULT)[address] [place] [address] 45372 POCT Glucose Levelon 025 Glucose [Mass/Vol] 195 mg/dL High [address] [place] [address] Comment on above: Result Comment: OPR_ ID=[email or web address],TGC FLAG = False,Meter:[id number] Oral And Maxillofacial Surgeon:3125 Marcial Nupur Performed By: #### 4 [id number] #### [facility] (DEFAULT) [address] [place] [address] Glucose [Mass/Vol] 251 mg/dL High [address] [place] [address] Comment on above: Result Comment: OPR_ ID=IN_LIST,TGC FLAG = False,Meter:[id number] Oral And Maxillofacial Surgeon:36[address] St[address] Brandi Ambriz Performed By: #### 1 8704222, 1677856, [id number], [id number] #### [facility] (DEFAULT) [address] [place] [address] TnI HSon 02-29-2024 Troponin I High Sensitivity <2.3 Normal <=15.0 [facility] Comment on above: Performed By: #### 1 5218174, 0732352, 7586611, 5572351331, 2270745725, 1432934287 ####[facility] (DEFAULT)[address] [place] [address] UA w Culture if Ind Standard on 02-29-[address] [facility] Comment on above: Performed By: #### 1 [id number] ####[facility] (DEFAULT)[address] [place] [address] 77776 Color (U) Yellow Normal [facility] Comment on above: Performed By: #### 1 [id number] ####[facility] (DEFAULT)[address] [place] [address] Culture? Not Indicated Invalid Interpretation Code [facility] Comment on above: Result Comment: Resu lt created by rule GL_MAGR_ADD_UA_CULT1 Performed By: #### 1 [id number] ####[facility] (DEFAULT)[address] [place] [address] Glucose (U) [Mass/Vol] mg/dL Normal [facility] Comment on above: Performed By: #### 1 [id number] ####[facility] (DEFAULT)[address] [place] [address] 93877 Ketones Ql (U) Negative Normal [facility] Comment on above: Performed By: #### 1 [id number] ####[facility] (DEFAULT)[address] [place] [address] Micro? Not Indicated Invalid Interpretation Code [facility] Comment on above: Result Comment: Resu lt created by rule GL_MAGR_ADD_UA_MICRO Performed By: #### 1 [id number] ####[facility] (DEFAULT)[address] [place] [address] UA Bilirubin Negative Normal [facility] Comment on above: Performed By: #### 1 [id number] ####[facility] (DEFAULT)[address] [place] [address] UA Blood Negative Normal NEGATIVE [facility] Comment on above: Performed By: #### 1 [id number] ####[facility] (DEFAULT)[address] [place] [address] 42414 UA Clarity CLEAR Normal CLEAR [facility] Comment on above: Performed By: #### 1 [id number] ####[facility] (DEFAULT)[address] [place] [address] 60529 UA Leuk Est Negative Normal NEGATIVE [facility] Comment on above: Performed By: #### 1 [id number] ####[facility] (DEFAULT)[address] [place] [address] 38815 UA Nitrite Negative Normal NEGATIVE [facility] Comment on above: Performed By: #### 1 [id number] ####[facility] (DEFAULT)[address] [place] [address] 67828 UA pH 6.0 Normal 5-8 [facility] Comment on above: Performed By: #### 1 [id number] ####[facility] (DEFAULT)[address] [place] [address] 83670 UA Protein Negative Normal NEGATIVE [facility] Comment on above: Performed By: #### 1 [id number] ####[facility] (DEFAULT)[address] [place] [address] 98723 UA Spec Grav 1.015 Normal 1.001-1.035 [facility] Comment on above: Performed By: #### 1 [id number] ####[facility] (DEFAULT)[address] [place] [address] UA Urobilinogen 0.2 mg/dL Normal 0.2-1.0 [facility] Comment on above: Performed By: #### 1 [id number] ####[facility] (DEFAULT)[address] [place] [address] Urine Source Clean Catch Normal [facility] Comment on above: Performed By: #### 1 [id number] ####[facility] (DEFAULT)[address] [place] [address] .Auto Diff 02-25-2024 Auto [place] % 5 % Normal 03-10 [facility] Comment on above: Performed By: #### 1 1694459, 0191219, [id number], [id number] #### [facility] (DEFAULT) [address] [place] [address] Baso Abs# 0.1 x10 Normal 0.0-0.2 [facility] Comment on above: Performed By: #### 1 9722010, 2997437, [id number], [id number] #### [facility] (DEFAULT) [address] [place] [address] Basophils/100 WBC (Bld) 0.7 % Normal 0.2-2.0 [facility] Comment on above: Performed By: #### 1 2545525, 6581854, [id number], [id number] #### [facility] (DEFAULT) [address] [place] [address] Eos Abs# 0.2 x10 Normal 0.0-0.4 [facility] Comment on above: Performed By: #### 1 5175923, 1423150, [id number], [id number] #### [facility] (DEFAULT) [address] [place] [address] Eosinophils/100 WBC (Bld) 2.1 % Normal 0.9-4.0 [facility] Comment on above: Performed By: #### 1 5223828, 6219336, 3412912024, [id number] #### [facility] (DEFAULT) [address] [place] [address] Lymph Abs# 3.3 x10 High 1.3-2.9 [facility] Comment on above: Performed By: #### 1 8128573, 8341371, 3606324447, [id number] #### [facility] (DEFAULT) [address] [place] [address] Lymphocytes/100 WBC (Bld) 39 % Normal 14-48 [facility] Comment on above: Performed By: #### 1 2646702, 4779332, [id number], [id number] #### [facility] (DEFAULT) [address] [place] [address] Caswell Abs# 0.4 x10 Normal 0.0-0.8 [facility] Comment on above: Performed By: #### 1 1159765, 5998190, [id number], [id number] #### [facility] (DEFAULT) [address] [place] [address] Neut Abs# 4.5 x10 Normal 1.5-9.2 [facility] Comment on above: Performed By: #### 1 6553422, 5950231, 7952322213, [id number] #### [facility] (DEFAULT) [address] [place] [address] Neutrophils/100 WBC (Bld) 53 % Normal 44-88 [facility] Comment on above: Performed By: #### 1 6286634, 5113595, 4253321573, [id number] #### [facility] (DEFAULT) [address] [place] [address] CBC w/ Auto Diffon 4 Man Diff? Auto Invalid Interpretation Code [facility] Comment on above: Performed By: #### 1 [id number], 0534676, [id number], [id number] #### [facility] (DEFAULT) [address] [place] [address] Erythrocyte distribution width (RBC) [Ratio] 15.8 % High 11.5-15.0 [facility] Comment on above: Performed By: #### 1 [id number], 1650139, [id number], [id number] #### [facility] (DEFAULT) [address] [place] [address] Hematocrit (Bld) [Volume fraction] 40.1 % Normal 33.7-40.4 [facility] Comment on above: Performed By: #### 1 1317922, 3199662, [id number], [id number] #### [facility] (DEFAULT) [address] [place] [address] Hemoglobin (Bld) [Mass/Vol] 13.4 g/dL Normal 11.3-15.9 [facility] Comment on above: Performed By: #### 1 1521372, 1727630, [id number], [id number] #### [facility] (DEFAULT) [address] [place] [address] 10126 MCH (RBC) [Entitic mass] 29 pg Normal 24-34 [facility] Comment on above: Performed By: #### 1 1240005, 2105495, [id number], [id number] #### [facility] (DEFAULT) [address] [place] [address] 11129 MCHC (RBC) [Mass/Vol] 33 g/dL Normal 26-37 [facility] Comment on above: Performed By: #### 1 1937759, 4909088, [id number], [id number] #### [facility] (DEFAULT) [address] [place] [address] 09440 MCV (RBC) [Entitic vol] 88 fL Normal 81-100 [facility] Comment on above: Performed By: #### 1 0438653, 2960854, [id number], [id number] #### [facility] (DEFAULT) [address] [place] [address] 82556 Platelet 259 x10 Normal 138-427 [facility] Comment on above: Performed By: #### 1 1114032, 2383987, [id number], [id number] #### [facility] (DEFAULT) [address] [place] [address] Platelet mean volume (Bld) [Entitic vol] 7.7 fL Normal 6.3-10.2 [facility] Comment on above: Performed By: #### 1 7622237, 5969940, [id number], [id number] #### [facility] (DEFAULT) [address] [place] [address] RBC 4.57 x10 Normal 3.70-5.30 [facility] Comment on above: Performed By: #### 1 8699973, 9904121, [id number], [id number] #### [facility] (DEFAULT) [address] [place] [address] WBC 8.5 x10 Normal 3.5-10.5 [facility] Comment on above: Performed By: #### 1 7884003, 8399895, [id number], [id number] #### [facility] (DEFAULT) [address] [place] [address] CMP Standardon 02-25-2024 eGFR Non AA >[address] [facility] Comment on above: Performed By: #### 1 7778427, 9047396, [id number], [id number] #### [facility] (DEFAULT) [address] [place] [address] eGFR AA >[address] [facility] Comment on above: Performed By: #### 1 6908461, 0751301, [id number], [id number] #### [facility] (DEFAULT) [address] [place] [address] Albumin [Mass/Vol] 3.9 g/dL Normal 3.5-5.0 [facility] Comment on above: Performed By: #### 1 4668538, 4419703, [id number], [id number] #### [facility] (DEFAULT) [address] [place] [address] Albumin/Globulin [Mass ratio] 0.9 {ratio} Low 1.4-2.6 [facility] Comment on above: Performed By: #### 1 2175425, 3264696, [id number], [id number] #### [facility] (DEFAULT) [address] [place] [address] 54377 Alk Phos 109 IU/L High 32-91 [facility] Comment on above: Performed By: #### 1 5198001, 7609341, 8255088519, [id number] #### [facility] (DEFAULT) [address] [place] [address] 93897 ALT [Catalytic activity/Vol] 28.0 U/L Normal 14.0-54.0 [facility] Comment on above: Performed By: #### 1 0543040, 0749644, [id number], [id number] #### [facility] (DEFAULT) [address] [place] [address] 82912 Anion gap [Moles/Vol] 13.8 mmol/L Normal 5.0-19.0 [facility] Comment on above: Performed By: #### 1 5928221, 2251970, 3476092818, [id number] #### [facility] (DEFAULT) [address] [place] [address] 34591 AST [Catalytic activity/Vol] 40 U/L Normal 15-41 [facility] Comment on above: Performed By: #### 1 4457148, 7337817, [id number], [id number] #### [facility] (DEFAULT) [address] [place] [address] 91538 Bili Total 0.8 mg/dL Normal 0.3-1.2 [facility] Comment on above: Performed By: #### 1 3784821, 9955046, 7764715499, [id number] #### [facility] (DEFAULT) [address] [place] [address] 86612 Calcium [Mass/Vol] 8.8 mg/dL Low 8.9-10.3 [facility] Comment on above: Performed By: #### 1 5507480, 0807585, 6735204159, [id number] #### [facility] (DEFAULT) [address] [place] [address] 79372 Chloride [Moles/Vol] 97 mmol/L Low 101-111 [facility] Comment on above: Performed By: #### 1 3822589, 2351427, 5355243309, [id number] #### [facility] (DEFAULT) [address] [place] [address] 04069 CO2 [Moles/Vol] 25 mmol/L Normal 21-32 [facility] Comment on above: Performed By: #### 1 9362642, 1848352, 3437179839, 4354104269 #### [facility] (DEFAULT) [address] [place] [address] 21362 Creatinine [Mass/Vol] 0.92 mg/dL Normal 0.60-1.30 [facility] Comment on above: Performed By: #### 1 0637413, 4950453, 6010700702, [id number] #### [facility] (DEFAULT) [address] [place] [address] 38477 Globulin (S) [Mass/Vol] 4.3 g/dL Normal 1.5-4.3 [facility] Comment on above: Performed By: #### 1 5139988, 4787335, 8071263167, [id number] #### [facility] (DEFAULT) [address] [place] [address] 97807 Glucose [Mass/Vol] 287.0 mg/dL High 74.0-118.0 [facility] Comment on above: Performed By: #### 1 6294595, 0043172, 8791670092, [id number] #### [facility] (DEFAULT) [address] [place] [address] 55681 Osmolality 274 mOsm/L Invalid Interpretation Code [facility] Comment on above: Performed By: #### 1 3908639, 6729956, 1496459651, [id number] #### [facility] (DEFAULT) [address] [place] [address] 59241 Potassium [Moles/Vol] 3.8 mmol/L Normal 3.6-5.1 [facility] Comment on above: Performed By: #### 1 2480063, 7388083, 9558957792, [id number] #### [facility] (DEFAULT) [address] [place] [address] 24312 Protein [Mass/Vol] 8.2 g/dL High 6.5-8.1 [facility] Comment on above: Performed By: #### 1 0549792, 6363181, 0406031486, [id number] #### [facility] (DEFAULT) [address] [place] [address] 33712 Sodium [Moles/Vol] 132.0 mmol/L Low 136.0-144.0 [facility] Comment on above: Performed By: #### 1 8335512, 4435906, 0073122558, 3606923942 #### [facility] (DEFAULT) [address] [place] [address] 08515 Urea nitrogen [Mass/Vol] 9 mg/dL Normal 8-26 [facility] Comment on above: Performed By: #### 1 5709026, 0322374, 6006774491, [id number] #### [facility] (DEFAULT) [address] [place] [address] 77318 Urea nitrogen/Creatinine [Mass ratio] 9.7 mg/mg Normal 4.6-16.2 [facility] Comment on above: Performed By: #### 1 5835053, 8754270, 4657798193, [id number] #### [facility] (DEFAULT) [address] [place] [address] 47077 ED Clinical Summaryon [address] [facility] - Emergency Department [address] [place] [address] 74107 ED Clinical Summary PERSON INFORMATION Name: NAILA BELTRAN Age: 53 Years Sex: FEMALE : 1970 MRN: Acct#: Visit Reason: Hyperglycemia; THIRSTY Arrival: 02/25/2024 20:59:36 Discharge: 02/25/2024 22:43:00 LOS: 000 01:44 Check In: 02/25/2024 20:59:36 Checkout:02/25/2024 22:43:00 Address: [address] [place], [place] [id number] PCP: HAIDER ADAMSON PROVIDER INFORMATION Provider Role Assigned Unassigned Kevin Gracia MD ED Provider 02/25/2024 21:00:14 Kathy RN, Bella Valdivia ED Nurse 02/25/2024 21:10:36 VITALS INFORMATION Vital Sign Triage Latest Temperature Tympanic Temperature Temporal Artery 36.3 DegC Pulse Rate 78 bpm 78 bpm O2 Sat 98 % 98 % Respiratory Rate 17 br/min 17 br/min Blood Pressure /103 mmHg /103 mmHg MEDICAL INFORMATION Medications Given: Medication Dose Route insulin detemir (Levemir) 20 unit(s) Subcutaneous insulin aspart (NovoLOG) 6 unit(s) Subcutaneous Allergy Information: NSAIDs; heparin; penicillin; cephalexin PHYSICIAN DOCUMENTATION DISCHARGE INFORMATION: Discharge Disposition: Home Discharge Location: Home PATIENT EDUCATION INFORMATION Instructions: Hyperglycemia, Dxlh-bw-Mjgm Follow-Up: With: Address: When: HAIDER ADAMSON [address] [place] [address] Within 3 to 5 days DIAGNOSIS: 1:Hyperglycemia Patient Understands: Yes - Patient/family/careg iver verbalizes understanding of instructions given Comment: [facility] ED Patient Summaryon [address] [facility] - Emergency Department [address] [place], [place] [id number] PATIENT DISCHARGE INSTRUCTIONS Patient Information Name: NAILA BELTRAN Age: 53 Years Date of : 1970 Reason For Visit: Hyperglycemia; THIRSTY Arrival Time: 02/25/2024 20:59:36 Primary Care Physician: HAIDER ADAMSON Attending Physician: Kevin Gracia MD Comment: Visit Diagnosis: Diagnoses This Visit Hyperglycemia ([id number]) Hyperglycemia (R73.9) The Pharmacy at [facility] is open Monday through Monday from 9A to 6P and Monday and Monday from 9A to 5P Prescription Information: If you have been given a prescription for narcotics, seek immediate medical attention if you have any difficulty breathing or any sudden status changes such as confusion and sleepiness. If you or anyone you know is experiencing suicidal thoughts, mental health, alcohol and/or drug addiction problems; contact the [facility] 19/09 Crisis Hotline -Text 4HTBF yd 575903. If you received any narcotics, sedation, or any other medication that causes drowsiness for the next 24 hours, unless otherwise directed: ? Do not drive a car. ? Do not operate machinery such as power tools, lawn mowers, drills, sewing machines, or stoves ? Avoid alcoholic beverages and drugs for allergies, nerves, or sleep ? Do not make important personal or business decisions or sign any legal documents With: Address: When: HAIDER ADAMSON [address] [place] [address] Within 3 to 5 days Medication Information: The exam and treatment you received today in the [facility] Emergency Department were for an urgent problem and are not intended as complete care. It is important for you to follow up with a doctor, nurse practitioner, or physician?s clinic assistant for ongoing care. If your symptoms become worse or you do not improve as expected and you are unable to reach your usual health care provider, you should return to the Emergency Department, we are available 24 hours a day. For those patients who have received Radiology results, the interpretation of your X-ray as given to you by our Emergency Department physician is only a preliminary report. The Radiologist will review your films and if there is a change in the diagnosis you will be notified by phone. Please make sure you have provided a working phone number so we can reach you if necessary. In the event that you had a lab culture while you were a patient in the Emergency Department, you will be notified by phone if there is a need to change your antibiotic. Please make sure you have provided a working phone number so we can reach you if necessary. [facility] Emergency Department has provided you with a complete list of medications post discharge. Please inform your machine room engineer/provider of your visit and for further instruction on these medications. Any specific questions regarding your chronic medications and dosages should be discussed with your primary care physician(s) and/or pharmacist. Additional medications on your home medication list not specifically addressed. Please contact the ordering physician if you have questions about these medications. apixaban (Eliquis 2.5 mg oral tablet) 1 tab(s) Oral (given by mouth) 2 times per day. aspirin (aspirin 81 mg oral delayed release tablet) 1 tab(s) Oral (given by mouth) every day. atorvastatin (atorvastatin 40 mg oral tablet) 1 tab(s) Oral (given by mouth) every day. cholecalciferol (cholecalciferol 2000 intl units oral capsule) 2,000 International_Unit Oral (given by mouth) every day. Refills: 0. cyanocobalamin (Vitamin B12 1000 mcg oral tablet) 1 tab(s) Oral (given by mouth) every day. Durable Medical Equipment for Prescription (RA VITAMIN D3 2,000 UNIT SFGL) See instructions. empagliflozin (Jardiance 25 mg oral tablet) empagliflozin (Jardiance) 10 Milligram Oral (given by mouth) once a day (in the morning). fluticasone nasal (!-Flonase 50 mcg/inh nasal spray) 1 spray(s) Nostril-Both 2 times per day as needed nasal congestion. glyBURIDE (GlyBURIDE (Eqv-Micronase) 5 mg oral tablet) 1 tab(s) Oral (given by mouth) every day. levETIRAcetam (Keppra 500 mg oral tablet) 3 tab(s) Oral (given by mouth) At bedtime. metformin-sitaglipti n (Janumet 50 mg-500 mg oral tablet) 1 tab(s) Oral (given by mouth) 2 times per day. metformin-sitaglipti n (Janumet 50 mg-500 mg oral tablet) take 1 tablet by mouth twice a day. metoprolol (metoprolol succinate 25 mg oral capsule, extended release) 1 cap(s) Oral (given by mouth) 2 times per day. multivitamin with iron (Iron 100 Plus oral tablet) tiZANidine (tiZANidine 2 mg oral tablet) 1 tab(s) Oral (given by mouth) every 8 hours. as needed as needed for muscle spasm. Visit Information Allergies: Substance Reaction Symptoms Type Comments cephalexin Drug heparin Drug NSAIDs Drug (more content not included)... Normal [facility] Extra [facility] 02-25-2024 Tube Collected Yes Invalid Interpretation Code [facility] Comment on above: Performed By: #### 1 2755603, 9807278, [id number], [id number] #### [facility] (DEFAULT) [address] [place] [address] HgbA1c Standardon 02-25-2024 .Hb 14.[address] [facility] Comment on above: Performed By: #### 1 9888233, 1378426, [id number], [id number] #### [facility] (DEFAULT) [address] [place] [address] 58560 .Hgb A1c 1.17 g/dL Invalid Interpretation Code [facility] Comment on above: Performed By: #### 1 9716969, 0515390, 1722144824, [id number] #### [facility] (DEFAULT) [address] [place] [address] Glucose [Mass/Vol] 226 mg/dL Invalid Interpretation Code [facility] Comment on above: Performed By: #### 1 7918951, 4596263, 3930918548, [id number] #### [facility] (DEFAULT) [address] [place] [address] HbA1c (Bld) [Mass fraction] 9.5 % High 4.6-6.2 [facility] Comment on above: Performed By: #### 1 8872045, 9401112, 1514741796, [id number] #### [facility] (DEFAULT) [address] [place] [address] POCT Glucose Levelon 024 Glucose [Mass/Vol] 217 mg/dL High [address] [place] [address] Comment on above: Result Comment: OPR_ ID=IN_LIST,TGC FLAG = False,Meter:[id number] Oral And Maxillofacial Surgeon:3045 Baroda Bella Performed By: #### 4 [id number] #### [facility] (DEFAULT) [address] [place] [address] 42276 Glucose [Mass/Vol] 252 mg/dL High [address] Comment on above: Result Comment: OPR_ ID=IN_LIST,TGC FLAG = False,Meter:[id number] Oral And Maxillofacial Surgeon:3045 Kathy Bella Performed By: #### 4 [id number] ####[facility] (DEFAULT)[address] [place] [address] UA w Culture if Ind Standard on 02-25-[address] [facility] Comment on above: Performed By: #### 1 [id number] ####[facility] (DEFAULT)[address] [place] [address] Color (U) Yellow Normal [facility] Comment on above: Performed By: #### 1 [id number] ####[facility] (DEFAULT)[address] [place] [address] Culture? Not Indicated Invalid Interpretation Code [facility] Comment on above: Result Comment: Resu lt created by rule GL_MAGR_ADD_UA_CULT1 Performed By: #### 1 [id number] ####[facility] (DEFAULT)[address] [place] [address] Glucose (U) [Mass/Vol] mg/dL Normal [facility] Comment on above: Performed By: #### 1 [id number] ####[facility] (DEFAULT)[address] [place] [address] Ketones Ql (U) Negative [facility] Comment on above: Performed By: #### 1 [id number] ####[facility] (DEFAULT)[address] [place] [address] Micro? Not Indicated Invalid Interpretation Code [facility] Comment on above: Result Comment: Resu lt created by rule GL_MAGR_ADD_UA_MICRO Performed By: #### 1 [id number] ####[facility] (DEFAULT)[address] [place] [address] UA Bilirubin Negative Normal [facility] Comment on above: Performed By: #### 1 [id number] ####[facility] (DEFAULT)[address] [place] [address] UA Blood Negative Normal NEGATIVE [facility] Comment on above: Performed By: #### 1 [id number] ####[facility] (DEFAULT)[address] [place] [address] UA Clarity CLEAR Normal CLEAR [facility] Comment on above: Performed By: #### 1 [id number] ####[facility] (DEFAULT)[address] [place] [address] UA Leuk Est Negative Normal NEGATIVE [facility] Comment on above: Performed By: #### 1 [id number] ####[facility] (DEFAULT)[address] [place] [address] 49455 UA Nitrite Negative Normal NEGATIVE [facility] Comment on above: Performed By: #### 1 [id number] ####[facility] (DEFAULT)[address] [place] [address] UA pH 6.0 Normal 5-8 [facility] Comment on above: Performed By: #### 1 [id number] ####[facility] (DEFAULT)[address] [place] [address] 62523 UA Protein Negative Normal NEGATIVE [facility] Comment on above: Performed By: #### 1 [id number] ####[facility] (DEFAULT)[address] [place] [address] UA Spec Grav 1.010 Normal 1.001-1.035 [facility] Comment on above: Performed By: #### 1 [id number] ####[facility] (DEFAULT)[address] [place] [address] UA Urobilinogen 2.0 mg/dL Abnormal 0.2-1.0 [facility] Comment on above: Performed By: #### 1 [id number] ####[facility] (DEFAULT)[address] [place] [address] Urine Source Clean Catch Normal [facility] Comment on above: Performed By: #### 1 [id number] ####[facility] (DEFAULT)[address] [place] [address] Provider Orderson 02-06-2024 Provider Orders [id number] 27#1.00OTGTIFF [facility] 02-01-2024 [facility] Telephone (AVXRMO) NAILA BELTRAN ([id number]) 1970 F Date Time Provider Department 02/01/24 ADELE HAHN AVXRMO During your visit today, we recorded the following information about you: Adele Hahn, RT(R) 02/01/2024 1:31 PM Signed Spoke with patient, confirmed appointment and prep Allergies As of Date: 02/01/2024 Noted Allergy Reaction ASPIRIN 16 - Unknown HEPARIN ANALOGUES 12/22/2011 16 - Unknown KEFLEX (CEPHALEXIN) 02/06/2010 4 - Hives PENICILLIN G 02/06/2010 4 - Hives Date Reviewed: 11/07/2023 Reviewed by: Yumiko Tong RT(R) - Fully Assessed Reason for Visit: Radiology NM [[id number]] Prescriptions as of 02/01/2024 - apixaban (ELIQUIS) 2.5 mg tab(s) Take 1 tablet by mouth two times a day. - pantoprazole DR (PROTONIX) 40 mg tablet Take 1 tablet by mouth two times a day. - metoprolol tartrate, short acting, (LOPRESSOR) 50 mg tablet Take 50 mg by mouth two times a day. - tiZANidine (ZANAFLEX) 2 mg tablet Take 2 mg by mouth every 8 hours as needed (neck pain). - lubiprostone (AMITIZA) 8 mcg capsule Take 1 capsule by mouth two times a day with meals. - iv contrast (will be provided with radiology [...] in the CT contrast administration guidelines link. - enteric contrast (will be provided with radiology test) For CT ABD/PEL W IVCON Routine order Administer, As Directed One Time Only, via Oral, Rectal, both Oral and Rectal, Enteric Tube, Stoma or Indwelling Catheter, Enteric Contrast as designated per enteric contrast guidelines - glyBURIDE (DIABETA) 5 mg tablet Take 5 mg by mouth. Takes 1 tablet with each small meal. Usually about 3 per day - cetirizine (ZYRTEC) 10 mg tablet Take 10 mg by mouth. - Fluticasone Furoate 27.5 mcg/actuation nasal spray fluticasone Fluticasone Furoate Active 1 SPRAY Intranasal Daily June 13, 2017 7:29am 06-13-2017 [facility] (45735) - sitaGLIPtin-metFORMI N (JANUMET) 50-500 mg per tablet Take 1 tablet by mouth twice daily with meals. - aspirin 81 mg chewable tablet q 24 HR. - albuterol HFA (PROVENTIL HFA, VENTOLIN HFA) 90 mcg/actuation inhaler Ventolin HFA 90 mcg/actuation aerosol inhaler - levETIRAcetam XR (KEPPRA XR) 500 mg 24 hr tablet Take 1,500 mg by mouth daily at bedtime. - atorvastatin (LIPITOR) 40 mg tablet Take 40 mg by mouth once daily. - Comp.Stocking,Thigh, Long,X-Lrg misc Wear stocking daily - Multivitamins ORAL Chew None Entered Problem List As Of Date 02/01/2024 Noted Resolved Hypercoagulable state [D68.59] 01/16/2013 Vascular disease [I99.9] 11/15/2017 Anticoagulated [Z79.01] 02/06/2020 HLD (hyperlipidemia) [E78.5] 02/06/2020 Coronary artery disease of [place] artery of [place]*02/06/2020 Diabetes mellitus type 2 (HCC) [E11.9] 02/06/2020 GERD (gastroesophageal reflux disease) [K21.9] 02/06/2020 Personal history of DVT (deep vein thrombosis) *02/06/2020 Fatty liver [K76.0] 02/06/2020 Morbid obesity (HCC) [E66.01] 02/06/2020 Seizures (HCC) [R56.9] SOB (shortness of breath) [R06.02] PVD (peripheral vascular disease) (HCC) [I73.9] 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] History of COVID-19 [Z86.16] 03/04/2020 Obesity, Class III, BMI >= 40 [E66.01] 03/15/2020 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*06/13/2023 Gastroparesis due to DM (HCC) (HCC) [E11.43, K*06/13/2023 Obesity, Class II, BMI 35-39.9 [E66.812] 08/09/2023 Anxiety [F41.9] 08/09/2023 PTSD (post-traumatic stress disorder) [F43.10] 08/09/2023 Encounter Status:Closed by ADELE HAHN on 02/01/24 [facility] Coding Summaryon 01-30-2024 Coding Summary HTMLBase 64 BwrtubjwQJb6jGh+PGhl YWQ+FY1JVLOcQ81vyGBq xC7rH1KWESkVLdsvSLWG FVePWaXtfkAlMA8hjKIc ZXJu IC8+WW9eXUIgCezzkFAh b5D5qPB5L06zpt1nFThi kIC6NQGxDnXaxxggv0jk mKg0VLfrEthbSgQm ALHxxG63BSF1dW77Zh85 qLGpdJVis9fvnVj4EgHd TJKlJGT1nNkvFVohp8Qm DTHfX81aqVPuz7M4 IGNvbGxhcHNlOyBlbXB0 rS1fHFogcranw9chkjjd Gpy4mp45kYMcd4K6xHD3 R9HzjiB5ORRujZQj WmehrGNNpA4covser8dz cnvsKrWyOQPsYYu4PPc3 YOXgdDniPdUeKR68NFM8 ESSspeHaT2LmSECt lFdkMbW4y8N9Rb0EP1MX OlqhB0LINCLOKXwwyMN+ BL93pw51Y6KiEwxpJej5 WXOjDSX7tOV8oL9k DVAmMRhnk9M3oTM9Y9Xg fzNyuw7di7suFJKaIDws L24yjZDjc3S7LJBurQU1 KEOkgLdvPgOdvT02 Oyc+DHPeiBkoj6XlYgeb l9lut9ybuWp6PsplZGSm ezNyfWefCDR9n0HhZy8f LAHsrYE5hWA2dP2j UdXtSfK6EOqmZ394LyKk lRRoIkfrJ13hO5HamUG+ UUBaAkk4FECjyGlgRZ2o G2HtBYOhotqekFCk oBixIB3dBQRutidnOXOj rQ8yXZGbN6q3AxHpWjL7 PHpsN6MeKDFgoygyZi50 aJ3iEzXpAdX0ZLju Z9OlkiQ6VHUmvBBmENan IMU0D86pn5T9DGApBPKy PJI4fGF3xI9kqXmtmgfz bGVmdDsgdmVydGlj BBygWZijV952YDByjHss PkNvZGluZyBEYXRlOiAg MTIvMDMvMjAyNDwvdGQ+ EMOgCTW3iNcfYWOc hGOmNEpnFc9fsNpntJeq UG4mHFQmknduCRFadP8f EOCxoRTgiUgwYR0fQSJc hwkzh310TtGqSHX1 GVLaeAGvX7UbnW7dAyUl FXEgBANxE5PejHSiEBkw X511OEfjHmP8ZMDxdwQk G0DsQLVamAtjZvV5 x1K6Vx6Ju3AbpxbpQ1Wd bTKgBqDuHyxpKVl4Q3Oe PjwvdHI+HM05AMHaFG96 YGf9NEM7pTnrXLci ZHZeE9WhiC1fOkFqASVa ZGRkOyc+PHRhYmxlIHdp ZHRoPScxMDAlJyBzdHls PH6bEp6dAHEjDMIj oSkzuGLwRpKts1vjVKQs HIroDS1nxUkcP1CnaNG9 LXDqw6o0Xk32O21lN3Yr dXA+AIEfcEV6aCS8 jB0iSeSlDoO1GLnqJ373 PkMjdEMvAxybn9gtz2fa sYg2FzA9WSBhvtNwkCll WMA3r0TdLo07R38t IHdpZHRoPSIxNSUiIHZh uQlnxy1uvD7oJh7+PGNv yNW9rTC4fG2sIsTbObL8 YHiqP891RsBtxBVo Rgzal3enr4glgHq2NfUr KUTuihOsvFwxMRT2w2Gy Oy81C1LeaAqio9BxOjr4 bx97xOIyg4F6aUX5 O8QxTIVqtnzrxOMkiEga IR8zRXEaojilPQDcfH0c NPWtG4b9ClKsTxO5BXqu B7NrqmO7RPIuuUIj QVTxdFGDqT0enqjhv7uo yzmrCsSyFKSxKCp3MEg6 DCJeyHjkKiTpJKW1AwW1 BAL5wOVzaF8qpCgu expsoA7fVpd+YTV5nFQb vJNFDQ8hNxddlQE+PHRk VJJ7dGlbRKizOWBfmE6k ZZZwM6x9HsFhNpY4 LYiiO9MrkhL8VKYhaIHx DCZngEZMhV8totdfv1ff rryrEnXtDJGfGWd2TPf0 LWFsaWduOiBsZWZ0 LsL3PCS1nFKeuD3odEyo ramwlT9yRrj+QmlydGgg YFY2IUo3G9PtWvu5YNVm wTqtPJ5utEAcWUvn As2aqSvzxZaxXL5mFINm wndrh475BxVyt8nvLQMm sBHiPVeiUFC1M33yf7W2 SQDsVGDkRBZ5xKO0 fM9ygIqvadodiOBxlMin ojEggLzxXSepGBtzF519 TKZsjXatExHpQEx8P2El Qxs4NVLptGtoFO0m hYAbBQwvGd3jcGcblQzh KW1iCZOqberfk258OxDd j4kaKKMmzHEcLBibVHK2 S39wm6R1OVSuLKEl JXO3zTK4pY7thOcrmgwi bGVmdDsgdmVydGljYWwt RMhbS124EWJzhPvmWqBc qXe7R7RjNig8WTBx yZhlWE1dcWEzHDqyJj2z qNapgQumCW8uOGIqzabg a767GjYlp8hcECGwfGIj XDevOOD5T31wr6E5 KJNbHFTkKCB5eUY5jT5w bGlnbjogbGVmdDsgdmVy oKrfLAuqMRmbG576JLSb cDsnPlBhdGllbnQg FNhgEEe1Q1QrIjgocQD+ XI91GVMzGY26xRSpjINh t4cukTf7NbHxNLKaJZE4 wDxxCEzdk6PzHQAa X95omGOhq2Q1PLGyiFqw eLJrMhQskEN1cI3uEBaa rzwic3jxymotQgpvm7ah kp64hI48K86pBLys ZHRoPSIzMCUiIHZhbGln cj3ulV4bKu0+PGNvbCB3 zED8lN4vTNCzRnF8NLzb U503AmOofJXhWtne e2oaq4ufgCn4KeM7SHGl yeSnsNqcLEA6f6EiDo49 K05mVZocJPOnMOLuTYTl DCIvgJymjf1jdO8y Ii8+LYZshUH2tCV1dD7w RcRvMrR8GUtmZ828GfAk vMFlVpwcZ14uW0NlcOT+ DEMnVbh2SKScnIqk AC6lhGBlSTckFg4eLNT1 WiBbKtWuUFegP8KsCJEs jqpjwomduPR5IQUoLGNv lW34Pp3efZhdQVSg yEJVnD5pdwqlf3taxghm ZtWrQUKeTYl2KEy2HNSj gUflVqTbVJC9XgI8ITZ7 fUBkwH6wiBgkbhcd dP4wN6CgSFWxmzteFe18 pJ0rCoGtJvM3ZRfkFru+ TUlMTEVSLCBNQVJBIFM8 X8TiBdi5NOHlvEba VG8gsZAcNKozSe2pxUnc qLopOU9nAFVpkinxLOHf fN1mDWSfeSMpiAjrQI2s NDVlkzslq486YzQe YNX3DYIylIBxB9QkgR2z HdUhVJWbEJEcB2AwpAVf YMweO403LLlfTaC6GTVb dnKzQ2OpFYOlaFwe HtE0b6L6Kn3yRf5rOe9r ITnyVG97GZ97lLBrj8E2 vMR2U4TqGPIxaabltooq jFD8TZHoGAVomB74 oAVjOLolQs4um0M0d268 VLHnYKUreR96Ql9aoMhy TFAidSLHoV5dehvht3ms cjogIzAwMDAwMDt0 OHq6ZWFdkGrrBvOoQRA0 QoG4QJH8cFWzlN7yiQek ttgwtM5dQsw+NTQgWWVh svE6N7EbBkc6TTCk iBzaBQ1mmXLiCTftDz3x gWmxqLfgOW6iKRPzxsxz MZRxmE8oDOSlxKBixOiw DO2aCMRlscusz338 TzGfJBM6PWZhnTXnZ0Fm pL1zLcHsRUYsFYDvB8Eb aIRpGMwfX668NAugIsD9 LGWzwtNnN8IoQEFp gLyiWnF5f8H5Kh7RGO4N KXR9N6ApUna1NKPqmWwz GM1kmCWuSCxrWs5dgJyq zCidAF8yOPMofjuy GARibU4wVHPwtBQmoBjw NA9iVQNlrdfxi981QnIt DIZ7VULigWTxB0KqmU1e GqWpODZfNRErV4Lf iCXbNVqoY498NMcaMlK2 TUPbpvUdO7BiBOFhzBes OyX5j3O0Uc4JjCVhN6Uo B6z5M1KbIrswlFC+ YL43QNQzXP39uROrtINe l3eyzUs3JuIsIGQmXXH2 hHduONbni7NxJALcR85r pSEzy6A6TNLjtHcl tNTpOcYsnSU0qB0bGDvm btefj7vuanjoNucwu2lu pg61xM27H89dUNlkEAMs PSIzMCUiIHZhbGln yb0gaD0dDi3+PGNvbCB3 lBD8cY3kOuJdSxG0AUwz H067EgOubWJkHfzsl0am o4wflUm0NkCdFKQe smFqkWxgUHM1i6BcQp09 L80uDWgoTYJkDUPmDEIx KYOanTcyid6drS9eKe6+ AZ8ea8igpv95fV10 dHI+IZUjRJY6jHgsXTxg YPVxbL0wROfmGsM7ZSPd FsNzkW67pGFoLNmiAo4c dQqtuBgzUS8aQMHh crntf466DbCzf6swWCRl fIDcEOhxFFU8H45pv9O3 TAIyEYXjFOY9sZJ0tO6x bGlnbjogbGVmdDsg qdDbpSxuFXzyLBboX213 CZVqvKhqUjQqqNPyE2hn dtOHYV8oCklwiQX+PHRk OLL7kZpwODisWCTx mH3pICZqB9k1GoQzMoE0 GOfnH7NbukI0XRVwkHQa GWFreRJGdZ4gacwdb8pd cjogIzAwMDAwMDt0 XIr6WJMbtDqnBoLvIFI2 QkA9TVV7sIAcvX4jaLxf qtpnaV2wFms+RklOOjwv dGQ+QDEmLEO2pHdt PZacAEStlM3vOZHiL8n8 WoFrJyM1DKwwR1JphqW0 LSLrnGQdVTVfoCNHuJ4c lgdgo5vsomjuEoEb PUQjUXc4XTr1PIZumLbg AsDeMAH3WbM0TWH3vVXr oB4kcQkfmixtfI5uDmq+ TVJOOjwvdGQ+PHRk ENC9hUeaTLaqKQWzoM8y LOQhN5o3YvEwKqJ2JQqu S3EwnyN2ALGazNQpGVTq rYUWdU2ahpdll0oa yoboQdCeHQSbGQe6YMj7 CPAzaXxnEqHtUTK7JsK2 QVM2tDOwbS1kmDtecooy oZ7aNoq+CBK5XBX0 DP48LH76N9OgBngwiIZh bGU+PHRhYmxlIHdpZHRo JTzaTEUkHcJozJrgID7g Dq2kTHTqNXHbyBvs cHN (more content not included)... Normal [facility] ED Clinical Summaryon [address] [facility] - Emergency Department [address] [place], [place] [id number] ED Clinical Summary PERSON INFORMATION Name: NAILA BELTRAN Age: 53 Years Sex: FEMALE : 1970 MRN: Acct#: Visit Reason: Wrist pain-swelling; LT HAND, WRIST PAIN Arrival: 01/25/2024 17:28:36 Discharge: 01/25/2024 20:07:00 LOS: 000 02:39 Check In: 01/25/2024 17:28:36 Checkout:01/25/2024 20:07:00 Address: [address] [place] [id number] PCP: HAIDER ADAMSON PROVIDER INFORMATION Provider Role Assigned Unassigned Hope Fuentes RN ED Nurse 01/25/2024 17:54:21 Nehemiah Cummings MD ED Provider 01/25/2024 19:02:33 Mary Anne Rider RN ED Nurse 01/25/2024 19:22:29 VITALS INFORMATION Vital Sign Triage Latest Temperature Tympanic Temperature Temporal Artery Pulse Rate 92 bpm 92 bpm O2 Sat 98 % 98 % Respiratory Rate 18 br/min 18 br/min Blood Pressure /91 mmHg /91 mmHg MEDICAL INFORMATION Medications Given: Allergy Information: NSAIDs; heparin; penicillin; cephalexin PHYSICIAN DOCUMENTATION DISCHARGE INFORMATION: Discharge Disposition: Home Discharge Location: Home PATIENT EDUCATION INFORMATION Instructions: Wrist Pain, Adult Follow-Up: With: Address: When: HAIDER ADAMSON [address] [place] [address] Business (1) Within 3 to 5 days DIAGNOSIS: Muscle strain of left forearm Patient Understands: Yes - Patient/family/careg iver verbalizes understanding of instructions given Comment: Normal [facility] ED Patient Summaryon [address] [facility] - Emergency Department [address] [place] [id number] PATIENT DISCHARGE INSTRUCTIONS Patient Information Name: NAILA BELTRAN Age: 53 Years Date of : 1970 Reason For Visit: Wrist pain-swelling; LT HAND, WRIST PAIN Arrival Time: 01/25/2024 17:28:36 Primary Care Physician: HAIDER ADAMSON Attending Physician: Melvin Lane MD Comment: Visit Diagnosis: Diagnoses This Visit Muscle strain of left forearm (S56.912A) Wrist pain-swelling ([id number]) The Pharmacy at [facility] is open Monday through Monday from 9A to 6P and Monday and Monday from 9A to 5P Prescription Information: If you have been given a prescription for narcotics, seek immediate medical attention if you have any difficulty breathing or any sudden status changes such as confusion and sleepiness. If you or anyone you know is experiencing suicidal thoughts, mental health, alcohol and/or drug addiction problems; contact the [facility] 19/09 Crisis Hotline -Text 8YCFA yg 735975. If you received any narcotics, sedation, or any other medication that causes drowsiness for the next 24 hours, unless otherwise directed: ? Do not drive a car. ? Do not operate machinery such as power tools, lawn mowers, drills, sewing machines, or stoves ? Avoid alcoholic beverages and drugs for allergies, nerves, or sleep ? Do not make important personal or business decisions or sign any legal documents With: Address: When: HAIDER ADAMSON [address] [place] [address] Business (1) Within 3 to 5 days Medication Information: The exam and treatment you received today in the [facility] Emergency Department were for an urgent problem and are not intended as complete care. It is important for you to follow up with a doctor, nurse practitioner, or physician?s clinic assistant for ongoing care. If your symptoms become worse or you do not improve as expected and you are unable to reach your usual health care provider, you should return to the Emergency Department, we are available 24 hours a day. For those patients who have received Radiology results, the interpretation of your X-ray as given to you by our Emergency Department physician is only a preliminary report. The Radiologist will review your films and if there is a change in the diagnosis you will be notified by phone. Please make sure you have provided a working phone number so we can reach you if necessary. In the event that you had a lab culture while you were a patient in the Emergency Department, you will be notified by phone if there is a need to change your antibiotic. Please make sure you have provided a working phone number so we can reach you if necessary. [facility] Emergency Department has provided you with a complete list of medications post discharge. Please inform your machine room engineer/provider of your visit and for further instruction on these medications. Any specific questions regarding your chronic medications and dosages should be discussed with your primary care physician(s) and/or pharmacist. New Medications The [facility], [address] [place] [phone], [phone] naproxen (EC-Naprosyn 500 mg oral delayed release tablet) 1 tab(s) Oral (given by mouth) 2 times per day. Refills: 0. Medications to Continue That Have Not Changed Other Medications apixaban (Eliquis 2.5 mg oral tablet) 1 tab(s) Oral (given by mouth) 2 times per day. aspirin (aspirin 81 mg oral delayed release tablet) 1 tab(s) Oral (given by mouth) every day. atorvastatin (atorvastatin 40 mg oral tablet) 1 tab(s) Oral (given by mouth) every day. cholecalciferol (cholecalciferol 2000 intl units oral capsule) 2,000 International_Unit Oral (given by mouth) every day. Refills: 0. cyanocobalamin (Vitamin B12 1000 mcg oral tablet) 1 tab(s) Oral (given by mouth) every day. Durable Medical Equipment for Prescription (RA VITAMIN D3 2,000 UNIT SFGL) See instructions. empagliflozin (Jardiance) 10 Milligram Oral (given by mouth) once a day (in the morning). fluticasone nasal (!-Flonase 50 mcg/inh nasal spray) 1 spray(s) Nostril-Both 2 times per day as needed nasal congestion. glyBURIDE (GlyBURIDE (Eqv-Micronase) 5 mg oral tablet) 1 tab(s) Oral (given by mouth) every day. levETIRAcetam (Keppra 500 mg oral tablet) 3 tab(s) Oral (given by mouth) At bedtime. metformin-sitaglipti n (Janumet 50 mg-500 mg oral tablet) 1 tab(s) Oral (given by mouth) 2 times per day. metformin-sitaglipti n (Janumet 50 mg-500 mg oral tablet) take 1 tablet by mouth twice a day. metoprolol (metoprolol succinate 25 mg oral capsule, extended release) 1 cap(s) Oral (given by mouth) 2 times per day. multivitamin with iron (Iron 100 Plus oral tablet) tiZANidine (tiZANidine 2 mg oral tablet) 1 tab(s) Oral (given by mouth) every 8 hours. as needed as needed for muscle s (more content not included)... [facility] Coding Summaryon 01-12-2024 Coding Summary HTMLBase 64 DnmsfrcxZDd4tBl+PGhl YWQ+BT4UGIOdQ06tpPNn sU2eF0SNPHeQWolaPQKX ZBaOPqZzgyJeIL4pdITc ZXJu IC8+ND9qNADiCmndeJVe p3Q5sDN7F60ath8dUXyh xVF0BCDdIpHeyjhgu4cv yUe7HAzbVshnWoFl IOQqjI45ZGA9xR55Ph05 oYRbmAVcm8uibVq7ThGe AWCbPGX0fCbdUNkgi4Wj EYKhG59lgUSod6T6 IGNvbGxhcHNlOyBlbXB0 hX2zDXzacuytx4uikzfs Yhq7eq22xHJfg5F6cCS8 O4MkngG2DFOsiZAx ZjujbEWKdL3fjvfvs2jh dqzhEiIeZMDoNFx2NCb6 LRJnrHpqAbUwVP17LPL0 SGLeyfQvT5GaWGGd nIrlPiR7q5T3Gu4XU5NY XaxsU3DGJBNYIQcikGT+ MZ55hx96A3YwDaynFao9 RUNkOGX1tVT7vD1k EWFvHVvqd0V9qDW2D4Zx ztBsjj8ou8rlIQIzLUuu K95dzCPbq7W0DSQsdTK9 QKGcjRysYfBfyV09 Oyc+CIUyjUdrw7FsSpus h0xin2nntOn5ZelzZRCz gzYvvZwhDNV7g0EzSx1v LHBtlEX1zLU4gA1f ZcFpIkD8AOdoL114DmUg lSJrZmrkT00xL7TivSV+ GRNjGue2JYWssIdnPG3x T7OyTEVvlkkkcUCc vKeaFB1lCAOazqqmMGFt fL6hNXScM3c2VfXuZzG8 ROkpC9IxJAFbvqaqIh36 lO1xKoNjFhA6QWng L3HwmbX7AAJisELvMVjq MPJ6Y87ax3J0YVSkRGGq ISX0aRO3dH4ozQchhtih bGVmdDsgdmVydGlj QAhnZCzuX413UBCmvPdu PkNvZGluZyBEYXRlOiAg MTEvMTUvMjAyNDwvdGQ+ ADJrXXO7mIauIWBg eTQkHIooMi7hsGfjsRxf EW3gHPYiulirYDMitL0d UHVmhKCpqZtfSZ0wWLBb bkngb279EdMkHMS3 WXRnzTHcU0SkmZ9pEoPi ZKUtERGyS1TxeFTfCNny Z554YDgpXdG8RGKqotNl X5PrBMMdxRriJxQ7 m6J9Ro8Mi9VcfivyT9Mh rFMdMzFeSnmhJCe6F5Tv PjwvdHI+FX22ZQTgHF67 IDn4JXX9wQlqEFpr TPLlB6XivW3fSjVdQHMm ZGRkOyc+PHRhYmxlIHdp ZHRoPScxMDAlJyBzdHls XJ4jFw6kOTXbZNEs tEjthSBaVdPha7qzTCJw NQcmLK6fsPlcN1UjkUT6 FLNmm3y0Wn38Z96eK5Im dXA+XKZbiLR5mIZ9 eR9jVzQpRmT3EDyiQ276 BtFsgLKdFtrwb1ale8pr oSs1GdQ6HISdcnOklBoz LCL9i7DzVw87C74i IHdpZHRoPSIxNSUiIHZh lLbyre1xzF3bGk8+PGNv kXV2fNT1oH9jPzOrPdH7 IShvE659IkYalWQc Ybxoe3elo0clyIl2KdEb ZGGitgKtcFojERP5i2Ic Tv15K7AyzLgkm3NiPlg2 kc40eZFnf7X3mPE6 M3IaGRCvxygbrGGcfFnd XF1eRMXjvsrzTUZzhC4y IIIyS7h5DdAxGqZ0CByy B0TttnV4UPJpsERg CWEyvYOAiF1gzzuxl7wd wnwvYzEuONEeXSw2CPe7 EXYysYtzYqBhQDB2GeM2 WIX2mESguR1edHop xedjhT6zBsm+ROP0nUZu yTWVVG2xTxgzdZP+PHRk DVB3rQspXSyeFXKnbA5h HUHgE2l4JnGnCuR4 HXviX0AfohS1DZAmfFVi PTEqfOTZhD0dfsakp0ie fsmvPkKaPXHwLJt2WVb6 LWFsaWduOiBsZWZ0 RjB6MYE2yLZdwQ0kyZgb qfdlqB6fFis+QmlydGgg NFR7IGh1D0OdYrd1VSOe jZrbWG6onRWvEQrx Qy2sbNjzwRzyPU3bHGEh dpbts426FqMee0ukDABd vVLyBWxnUMX3H94pa9L4 TZWsUSXxTPO9gLI8 wU0crFagptjljTSspOpp iyPnuAvbQCkwGEptU538 VIScgQydVoSqVNz2R5Zs Upc3MMDtuIiyZU0z yFMtBLrmDd9ukWfwhSyw AQ0wADYktrbrb854TtTs e6kiURPcePAjTJdpKNY9 R95tm0D4JIGgOOEo CCD9zTV1sV7ujEmbnaju bGVmdDsgdmVydGljYWwt VGumC096DVFsyBviMeQi tRj6U4PsGlc3LTVd nPhfPT8gmZHuXFhfEm7r jBxxqMmiMT1rUMDzbswx e929AfJar3ooQXVqwMEn UZacTAR8N38xm0T3 EJSqDHGyBLP6bMR9qU8p bGlnbjogbGVmdDsgdmVy dPltMXivCBqwU301IUAs cDsnPlBhdGllbnQg WFduBTm7J8TcTxxibZN+ HH25FYMjBK54qDFucAUl l4ngpWz3AgDiDKMrXWV4 cTtnWWotj2DgHONg J58bmYCql0Q9NLAarJgw cQZbYaAzdIU1jI5fHDgq xgfdo5uldbgkOaafg4rb zh80eZ42R57aXUbi ZHRoPSIzMCUiIHZhbGln bx2aaR9yBw7+PGNvbCB3 ePV0qV8xECMsKjX8OQle X170AgSjeCHhMfhq g0dvf5kuuRh8CpU9HUZb hdEteIhkVWH8x6DqDl42 B60nZCoyHSZvPEClQSLd FJDgjPxqnf4ooW0b Ii8+QIEjjNU2pKN7fJ2x AbGbHgV6HKyoX259GkZx sGKtKbfjQ56rZ6SowAX+ BOKxVrw9NNAzwKqc FQ0qxFGsRHxiVc0sKNB0 HoEnSfYqWDiqQ1FiXEMt sonrdkawsFZ3EQPbPOMk kS08Hr3atSymVDHn bGAEmJ8aydsut0xcskvk PrHaOJPsALs5FKd1OGBf yOpxMaErYEH7ThU1DBL0 uUEvdV1tbGadanfp qG8nP4ZeENCwszcuVg20 iN8tImCgIcE2UXozTin+ TUlMTEVSLCBNQVJBIFM8 Y1KlFgq3BPJuuRmy HU1wgHAlCYxmVo3miLnz jXoyLL9wOGHzkjjjQSZc mL4xAJEfkAKezPcnHI8r JBTqqbhrr601VdIk PIN1KEDhvYRyE7EgtS7m JcWlZICxLFLiC3ZurIDf TQlfZ190ZGrsYwU4TVUa oiHxG7CaDUDgrSjt VnE2f4U2Sb8pJp3mYm5s MIfrRY56HC81gTYwt0H8 cHT7M5ZnLMRcraubcinp cZR9TZUpRQEtvT17 bEKkSQbnKz2vt1M2v290 XBBxOAOmsR86Iv3ipWaz OGLnxBHXdJ5pvkckz9qe cjogIzAwMDAwMDt0 QTl9PKZkjXqaChNeDAJ5 FfO0RGL7oPMtkV2vcXfe vxzhnI0qMid+NTQgWWVh koG0E8NzIab0JRNa eYicLA7zpDMkYWtzUt8k nZouxXifKH7qKJIwjreo LCRhbN1cMBKbgUEfpDft LH8lCASlnnzdo281 PdAyXSK9OICgoZYoG4Ah wS8lYvTlLNSlGHZnM9Xe dHUqBDknD054LHcvVgU2 ONPrmlXwS1XmZJQt jAhkOdZ9n3F3Wi4KSY8A NCH0X7OiEfl1XAFwfFvz NK2auSCxYEraDp5baLvq hLppMP7nCWFtljgv QXPfoG1iVNGegRBtlBch EV4iYVOtkgvzc473HxXp VGY9LOAzrPPlL0SkpY3t JwUjGKTzUYMfD3Pu mBQqTMdcX081CBqjGfM2 DEZffzMsB4ReHBHarIrt QtL8j4T6Ql9PsNXkG8Ku V6h0Z5WzGoocxZY+ EP81VKDxLE12fYWumGTg e2puxEs0NlGrBVLxAWO6 tRojNDrba1VmUGLnU28p yDZve5P7TSRbzLux sKJvKvTjuKS8kX6eMSwf caiah5srmlixEtdff3gr vb78cG14A69dHRbgMMBp PSIzMCUiIHZhbGln io6cbW3bNr6+PGNvbCB3 aVK1hK2kRcLcQuF9KAmw M503NiMttDAhBbxsx0yn g6akpMj5NwGkQBKv ewPzeYorRFQ4w8QcJk48 U12aCAnjFTFaANZpDUSb EKDwwJhjno5bbT7tTa0+ QZ2ld3fcuv40nE53 dHI+SSBgSPJ5iLhuKTco UEJhyR5pMJydOzR7QAIv XjQoaO90iJSlKRhuPo5m xEduhUwsTM1cSSNi nbmfx238VkDlm3mqLOHa nOPxFNxcQGT5Y91nx3V0 TOCxLKXlIAS0yXX6qS6g bGlnbjogbGVmdDsg ziAbwBkqVPnpXJvrQ748 MAShyPnqLnNpoBYrW3ws anQMUA4sXgpnvVV+PHRk WEA9oPmqISorHGMe qZ0rZNLmI6d3CkLgGiV4 WOuiE5LkyrM1TWFmfKXd SSEymUQEwU7cwehsb4lu cjogIzAwMDAwMDt0 XOx1MKGelJetTlEoDNP1 YvL8ATD5hMPvdH4tmQoh hldaeJ7tVfv+RklOOjwv dGQ+ILVfNWJ6zOfp NXvbMYTwdW6rCIOuU7p6 AsVdIjC9WSheE4KiprJ6 AAMtqIRxZOUifJOYeH8a gavgk3jmkogvDvQq MWXxGKs1IYx1RXLkmVid PtDfZQM3DoL7KQN8xLAq lA6mxLbvrafkbR1mOqc+ TVJOOjwvdGQ+PHRk AAT3hMdgIDgdZTNsuB2v PETcH6g0DaIkFbD0SVwi R9NdbcV5TXHjdLTaJHJb mNZXiE2spyxdr2wj wbqoCvMvSGPiUVy8QEz1 ZJEevJnxKsLiAHG5HeT8 REJ9qYLbqQ4pmSpxbibo bF1sEvy+HQL4CQM8 QE24IE17R6AvKghhqWJr bGU+PHRhYmxlIHdpZHRo PFchUAHqNaHvdWeyYN0e Qd1gAPBmOCYwwYnj cHN (more content not included)... Normal [facility] ED Clinical Summaryon [address] [facility] - Emergency Department [address] [place] [id number] ED Clinical Summary PERSON INFORMATION Name: NAILA BELTRAN Age: 53 Years Sex: FEMALE : 1970 MRN: Acct#: Visit Reason: Headache; HEADACHE Arrival: 12/30/2023 23:58:30 Discharge: 12/31/2023 00:56:00 LOS: 000 00:58 Check In: 12/30/2023 23:58:30 Checkout:12/31/2023 00:56:00 Address: [address] [facility] [address] PCP: HAIDER ADAMSON PROVIDER INFORMATION Provider Role Assigned Unassigned Mary Anne Rider RN ED Nurse 12/31/2023 00:05:[address] MD ED Provider 12/31/2023 00:23:05 VITALS INFORMATION Vital Sign Triage Latest Temperature Tympanic Temperature Temporal Artery Pulse Rate 73 bpm 73 bpm O2 Sat 98 % 98 % Respiratory Rate 18 br/min 18 br/min Blood Pressure /97 mmHg /97 mmHg MEDICAL INFORMATION Medications Given: Medication Dose Route prochlorperazine 10 mg Intramuscular diphenhydrAMINE 25 mg Intramuscular LORazepam (Ativan injection) 1 mg Intramuscular Allergy Information: NSAIDs; heparin; penicillin; cephalexin PHYSICIAN DOCUMENTATION Patient: NAILA BELTRAN Age: 53 years Sex: FEMALE : 1970 Associated Diagnoses: Intractable migraine without aura and without status migrainosus Author: Melvin Lane MD Basic Information Time seen: Date & time 12/31/2023 00:20:00. History source: Patient. Arrival mode: Private vehicle. Additional information: Chief Complaint from Nursing Triage Note : Chief Complaint 12/31/2023 0:04 EDT Chief Complaint Pt states she has a pinched nerve in her neck and has been having increasing pain for 1 week. C/o headache 100/10 . History of Present Illness The patient presents with headache and migraine . The onset was started at 5pm tonight. 53-year-old female presented to ER with complaint regarding migraine headache. Patient stated that she had onset of symptoms tonight. Symptoms started spontaneously. Reported having typical symptoms with previous migraine. Had associated nausea and vomiting. Light sensitivity. Had vomited several times. Stated that she took some Tylenol without improvement. Stated that symptoms stems from her neck. Stated that she is due for procedure with neck injection by her paint spray tender for her migraines and neck problem. Stated that usually helps for several months or so. No fevers or chills. No thunderclap. No weakness. No dysarthria, dysphagia, visual changes other than light sensitivity. No urinary symptoms. Stated that she does not have any medication to take for her headache besides Tylenol. Review of Systems Constitutional symptoms: No fever, no chills. Skin symptoms: No rash, Eye symptoms: Vision unchanged. ENMT symptoms: No sore throat, Respiratory symptoms: No cough, Cardiovascular symptoms: No chest pain, Gastrointestinal symptoms: Reported that she has gastroparesis, chronic diarrhea intermittent. Genitourinary symptoms: No dysuria, Musculoskeletal symptoms: No Muscle pain, Neurologic symptoms: Headache. Health Status Allergies: Allergic Reactions (Selected) Severity Not Documented Cephalexin- No reactions were documented. Heparin- No reactions were documented. NSAIDs- No reactions were documented. Penicillin- No reactions were documented.. Medications: (Selected) Prescriptions Prescribed cholecalciferol 2000 intl units oral capsule: 2,000 International_Unit, PO, Daily, 30 cap(s), 0 Refill(s) Documented Medications Documented !-Flonase 50 mcg/inh nasal spray: 1 spray(s), Nostrils-Both, BID, PRN: nasal congestion, 0 Refill(s) Eliquis 2.5 mg oral tablet: 2.5 mg = 1 tab(s), PO, BID, 0 Refill(s) GlyBURIDE (Eqv-Micronase) 5 mg oral tablet: 5 mg = 1 tab(s), PO, Daily, 0 Refill(s) Iron 100 Plus oral tablet: 0 Refill(s) Janumet 50 mg-500 mg oral tablet: 1 tab(s), PO, BID, 60 tab(s), 0 Refill(s) Janumet 50 mg-500 mg oral tablet: take 1 tablet by mouth twice a day Keppra 500 mg oral tablet: 1,500 mg = 3 tab(s), PO, HS, 0 Refill(s) RA VITAMIN D3 2,000 UNIT SFGL: See instructions, 0 Refill(s) Vitamin B12 1000 mcg oral tablet: 1,000 mcg = 1 tab(s), PO, Daily, 0 Refill(s) aspirin 81 mg oral delayed release tablet: 81 mg = 1 tab(s), PO, Daily, 0 Refill(s) atorvastatin 40 mg oral tablet: 40 mg = 1 tab(s), PO, Daily, 0 Refill(s) metoprolol succinate 25 mg oral capsule, extended release: 25 mg = 1 cap(s), PO, BID, 0 Refill(s) tiZANidine 2 mg oral tablet: 2 mg = 1 tab(s), PO, q8hr, PRN: as needed for muscle spasm, 90 tab(s), 0 Refill(s). Past Medical/ Family/ Social History Medical history: Resolved DVT (deep venous thrombosis) ([id number]): Resolved. Hysterectomy (664273082): Resolved. Visual discomfort (83019368): Resolved. Seizure disorder (345.90): Resolved. Serum iron level abnormal (221897985): Resolved. Hyponatremia (244046589): Resolved. Hypokalemia (22303014): Resolved. Factor V (5421327430): (more content not included)... Normal [facility] ED Note - Physicianon 2023 ED Note - Physician Patient: NAILA BELTRAN Age: 53 years Sex: FEMALE : 1970 Associated Diagnoses: Intractable migraine without aura and without status migrainosus Author: Melvin Lane MD Basic Information Time seen: Date & time 12/31/2023 00:20:00. History source: Patient. Arrival mode: Private vehicle. Additional information: Chief Complaint from Nursing Triage Note : Chief Complaint 12/31/2023 0:04 EDT Chief Complaint Pt states she has a pinched nerve in her neck and has been having increasing pain for 1 week. C/o headache 100/10 . History of Present Illness The patient presents with headache and migraine . The onset was started at 5pm tonight. 53-year-old female presented to ER with complaint regarding migraine headache. Patient stated that she had onset of symptoms tonight. Symptoms started spontaneously. Reported having typical symptoms with previous migraine. Had associated nausea and vomiting. Light sensitivity. Had vomited several times. Stated that she took some Tylenol without improvement. Stated that symptoms stems from her neck. Stated that she is due for procedure with neck injection by her paint spray tender for her migraines and neck problem. Stated that usually helps for several months or so. No fevers or chills. No thunderclap. No weakness. No dysarthria, dysphagia, visual changes other than light sensitivity. No urinary symptoms. Stated that she does not have any medication to take for her headache besides Tylenol. Review of Systems Constitutional symptoms: No fever, no chills. Skin symptoms: No rash, Eye symptoms: Vision unchanged. ENMT symptoms: No sore throat, Respiratory symptoms: No cough, Cardiovascular symptoms: No chest pain, Gastrointestinal symptoms: Reported that she has gastroparesis, chronic diarrhea intermittent. Genitourinary symptoms: No dysuria, Musculoskeletal symptoms: No Muscle pain, Neurologic symptoms: Headache. Health Status Allergies: Allergic Reactions (Selected) Severity Not Documented Cephalexin- No reactions were documented. Heparin- No reactions were documented. NSAIDs- No reactions were documented. Penicillin- No reactions were documented.. Medications: (Selected) Prescriptions Prescribed cholecalciferol 2000 intl units oral capsule: 2,000 International_Unit, PO, Daily, 30 cap(s), 0 Refill(s) Documented Medications Documented !-Flonase 50 mcg/inh nasal spray: 1 spray(s), Nostrils-Both, BID, PRN: nasal congestion, 0 Refill(s) Eliquis 2.5 mg oral tablet: 2.5 mg = 1 tab(s), PO, BID, 0 Refill(s) GlyBURIDE (Eqv-Micronase) 5 mg oral tablet: 5 mg = 1 tab(s), PO, Daily, 0 Refill(s) Iron 100 Plus oral tablet: 0 Refill(s) Janumet 50 mg-500 mg oral tablet: 1 tab(s), PO, BID, 60 tab(s), 0 Refill(s) Janumet 50 mg-500 mg oral tablet: take 1 tablet by mouth twice a day Keppra 500 mg oral tablet: 1,500 mg = 3 tab(s), PO, HS, 0 Refill(s) RA VITAMIN D3 2,000 UNIT SFGL: See instructions, 0 Refill(s) Vitamin B12 1000 mcg oral tablet: 1,000 mcg = 1 tab(s), PO, Daily, 0 Refill(s) aspirin 81 mg oral delayed release tablet: 81 mg = 1 tab(s), PO, Daily, 0 Refill(s) atorvastatin 40 mg oral tablet: 40 mg = 1 tab(s), PO, Daily, 0 Refill(s) metoprolol succinate 25 mg oral capsule, extended release: 25 mg = 1 cap(s), PO, BID, 0 Refill(s) tiZANidine 2 mg oral tablet: 2 mg = 1 tab(s), PO, q8hr, PRN: as needed for muscle spasm, 90 tab(s), 0 Refill(s). Past Medical/ Family/ Social History Medical history: Resolved DVT (deep venous thrombosis) ([id number]): Resolved. Hysterectomy (712556344): Resolved. Visual discomfort (18520294): Resolved. Seizure disorder (345.90): Resolved. Serum iron level abnormal (010415231): Resolved. Hyponatremia (489121078): Resolved. Hypokalemia (47864049): Resolved. Factor V ([id number]): Resolved., Reviewed as documented in chart. Surgical history: Rotator cuff repair ([id number]) on 08/11/2016 at 46 Years. Comments: 08/15/2016 10:38 Teresita Boo LPN Left arthrocopys with rotator cuff debridement and subacromial bursectomy US vascular - Doppler effect ([id number]) on 06/18/2016 at 45 Years. Comments: 06/20/2016 11:47 Teresita Boo LPN No evidence of DVT Neck injection ([id number]) on 04/14/[address] of chest ([id number]) on 01/03/2016 at 45 Years. radiofrequency ablation of medial branch of cervical nerve usuing fluoroscopic guidance on 10/10/2014 at 44 Years. MRI on 04/11/2014 at 43 Years. Comments: 06/01/2016 11:48 Treesita Boo LPN Degenerative changes and disc buldging. Neural foraminal narrowing as described US vascular - Doppler effect ([id number]) on 12/27/2013 at 43 Years. Comments: 06/19/2015 13:25 TOMÁST - Cielo Moe IMPRESSION: GROSSLY UNREMARKABLE IMAGING STUDY OF THE VISUALIZED DEEP VENOUS SYSTEM OF THE LEFT LEG DESCRIBED, NO DEFINITE EVIDENCE OF DEEP VENOUS THROMBOSIS CAN BE IDENTIFIED. Colonoscopy ([id number]) on 04/22/2013 at 42 (more content not included)... Normal [facility] ED Patient Summaryon [address] [facility] - Emergency Department [address] [place] [address] PATIENT DISCHARGE INSTRUCTIONS Patient Information Name: NAILA BELTRAN Age: 53 Years Date of : 1970 Reason For Visit: Headache; HEADACHE Arrival Time: 12/30/2023 23:58:30 Primary Care Physician: HAIDER ADAMSON Attending Physician: Melvin Lane MD Comment: Visit Diagnosis: Diagnoses This Visit Headache ([id number]) Intractable migraine without aura and without status migrainosus (G43.019) The Pharmacy at [facility] is open Monday through Monday from 9A to 6P and Monday and Monday from 9A to 5P Prescription Information: If you have been given a prescription for narcotics, seek immediate medical attention if you have any difficulty breathing or any sudden status changes such as confusion and sleepiness. If you or anyone you know is experiencing suicidal thoughts, mental health, alcohol and/or drug addiction problems; contact the [facility] 19/09 Crisis Hotline -Text 4WYBB xq 559744. If you received any narcotics, sedation, or any other medication that causes drowsiness for the next 24 hours, unless otherwise directed: ? Do not drive a car. ? Do not operate machinery such as power tools, lawn mowers, drills, sewing machines, or stoves ? Avoid alcoholic beverages and drugs for allergies, nerves, or sleep ? Do not make important personal or business decisions or sign any legal documents With: Address: When: HAIDER ADAMSON [address] [facility] [address] [place] [id number] Business (1) Within 2 to 4 days Comments: You were seen in the emergency room department for evaluation of a headache. There are many different types of headache. Some headaches are migraine. Others are due to tension headache, sinus headache or cluster headache. Some headaches are generalized without specific diagnosis or cause. These types of headache, while uncomfortable are more benign. Examples of emergency headache may include severe infection, meningitis, intracranial hemorrhage or stroke. On your evaluation today, no specific emergency was discovered. You were treated with medications to help your symptoms. If your headache change in pattern, or if you develop more severe headache, or you have the worse headache of your life, you should return to the emergency department for reevaluation. Additional considerations include difficulty with walking, difficulty with talking, persistent vomiting, changes in your ability to think or act normally. You should follow-up with your family doctor or specialist for reevaluation each time you have been to the emergency department for treatment of your headache. Additional treatment or diagnostic workup may be necessary. Review headache instructions provided. Keep yourself well hydrated. Resume your routine medication as instructed by your doctor. Contact your family doctor or the emergency department you have any questions or concerns regarding your treatment today. Medication Information: The exam and treatment you received today in the [facility] Emergency Department were for an urgent problem and are not intended as complete care. It is important for you to follow up with a doctor, nurse practitioner, or physician?s clinic assistant for ongoing care. If your symptoms become worse or you do not improve as expected and you are unable to reach your usual health care provider, you should return to the Emergency Department, we are available 24 hours a day. For those patients who have received Radiology results, the interpretation of your X-ray as given to you by our Emergency Department physician is only a preliminary report. The Radiologist will review your films and if there is a change in the diagnosis you will be notified by phone. Please make sure you have provided a working phone number so we can reach you if necessary. In the event that you had a lab culture while you were a patient in the Emergency Department, you will be notified by phone if there is a need to change your antibiotic. Please make sure you have provided a working phone number so we can reach you if necessary. [facility] Emergency Department has provided you with a complete list of medications post discharge. Please inform your machine room engineer/provider of your visit and for further instruction on these medications. Any specific questions regarding your chronic medications and dosages should be discussed with your primary care physician(s) and/or pharmacist. Additional medications on your home medication list not specifically addressed. Please contact the ordering physician if you have questions about these medications. apixaban (Eliquis 2.5 mg oral tablet) 1 tab(s) Oral (given by mouth) 2 times per day. aspirin (aspirin 81 mg oral delayed release tablet) 1 tab(s) Oral (given by mouth) every day. atorvastatin (at (more content not included)... Normal [facility] Office Visiton 12-20-2023 Follow-up visit [id number] Naila Beltran 1970 F Date Provider Department Center 12/20/2023 [id number] SANTANA CARD Anjali [facility] Family History Problem Relation Age of Onset Heart failure Mother Valvular heart disease Mother Family Status - Relation Status Age at Mother Level of Service:[address] [place] OFFICE/OUTPATIENT ESTABLISHED MOD [facility] 30 MIN Reason for Visit and Comments: Hypertension [489030] Palpitations [165676] Chest Pain [506971] Normal [facility] CNPNon 11-06-2023 CNPN Telephone (AVXRMO) NAILA BELTRAN ([id number]) 1970 F Date Time Provider Department 11/06/23 MARTINE RODRIGUEZ AVXRMO During your visit today, we recorded the following information about you: Martine Rodriguez, RT(R) 11/06/2023 4:05 PM Signed Called Patient and went over procedure and prep for nuclear medicine scan tomorrow. Allergies As of Date: 11/06/2023 Noted Allergy Reaction ASPIRIN 16 - Unknown HEPARIN ANALOGUES 12/22/2011 16 - Unknown KEFLEX (CEPHALEXIN) 02/06/2010 4 - Hives PENICILLIN G 02/06/2010 4 - Hives Date Reviewed: 10/18/2023 Reviewed by: Martine Bowling MD - Fully Assessed Prescriptions as of 11/06/2023 - apixaban (ELIQUIS) 2.5 mg tab(s) Take 1 tablet by mouth two times a day. - pantoprazole DR (PROTONIX) 40 mg tablet Take 1 tablet by mouth two times a day. - metoprolol tartrate, short acting, (LOPRESSOR) 50 mg tablet Take 50 mg by mouth two times a day. - tiZANidine (ZANAFLEX) 2 mg tablet Take 2 mg by mouth every 8 hours as needed (neck pain). - lubiprostone (AMITIZA) 8 mcg capsule Take 1 capsule by mouth two times a day with meals. - iv contrast (will be provided with radiology [...] in the CT contrast administration guidelines link. - enteric contrast (will be provided with radiology test) For CT ABD/PEL W IVCON Routine order Administer, As Directed One Time Only, via Oral, Rectal, both Oral and Rectal, Enteric Tube, Stoma or Indwelling Catheter, Enteric Contrast as designated per enteric contrast guidelines - glyBURIDE (DIABETA) 5 mg tablet Take 5 mg by mouth. Takes 1 tablet with each small meal. Usually about 3 per day - cetirizine (ZYRTEC) 10 mg tablet Take 10 mg by mouth. - Fluticasone Furoate 27.5 mcg/actuation nasal spray fluticasone Fluticasone Furoate Active 1 SPRAY Intranasal Daily June 13, 2017 7:29am 06-13-2017 [facility] (43913) - sitaGLIPtin-metFORMI N (JANUMET) 50-500 mg per tablet Take 1 tablet by mouth twice daily with meals. - aspirin 81 mg chewable tablet q 24 HR. - albuterol HFA (PROVENTIL HFA, VENTOLIN HFA) 90 mcg/actuation inhaler Ventolin HFA 90 mcg/actuation aerosol inhaler - levETIRAcetam XR (KEPPRA XR) 500 mg 24 hr tablet Take 1,500 mg by mouth daily at bedtime. - atorvastatin (LIPITOR) 40 mg tablet Take 40 mg by mouth once daily. - Comp.Stocking,Thigh, Long,X-Lrg misc Wear stocking daily - Multivitamins ORAL Chew None Entered Problem List As Of Date 11/06/2023 Noted Resolved Hypercoagulable state [D68.59] 01/16/2013 Vascular disease [I99.9] 11/15/2017 Anticoagulated [Z79.01] 02/06/2020 HLD (hyperlipidemia) [E78.5] 02/06/2020 Coronary artery disease of [place] artery of [place]*02/06/2020 Diabetes mellitus type 2 (HCC) [E11.9] 02/06/2020 GERD (gastroesophageal reflux disease) [K21.9] 02/06/2020 Personal history of DVT (deep vein thrombosis) *02/06/2020 Fatty liver [K76.0] 02/06/2020 Morbid obesity (HCC) [E66.01] 02/06/2020 Seizures (HCC) [R56.9] SOB (shortness of breath) [R06.02] PVD (peripheral vascular disease) (HCC) [I73.9] 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] History of COVID-19 [Z86.16] 03/04/2020 Obesity, Class III, BMI >= 40 [E66.01] 03/15/2020 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*06/13/2023 Gastroparesis due to DM (HCC) (HCC) [E11.43, K*06/13/2023 Obesity, Class II, BMI 35-39.9 [E66.9] 08/09/2023 Anxiety [F41.9] 08/09/2023 PTSD (post-traumatic stress disorder) [F43.10] 08/09/2023 Encounter Status:Closed by MARTINE RODRIGUEZ on 11/06/23 [facility] Coding Summaryon 10-16-2023 Coding Summary HTMLBase 64 HmjtmhmaTGx5lBl+PGhl YWQ+BN9IRJMzX51dfPAg tX7zX1CVFHoRVjdhQCBV UFrREdKgxmKxLW1ykUQk ZXJu IC8+FV3kYSRjWjnykIGq w6X3hLL6E60fnx1mBMau fWI8SXDdGlQbubjcj8yt jOh4ANmuYiddOjMr JCFtlY61PGS9uV74Xc50 bDOgkXTvb0upcKo5DnMq DXWuJPL5kTbaEMhet7Xo NWHxO57ihHMjh9C1 IGNvbGxhcHNlOyBlbXB0 zW4xRBlzindpw1epfngx Ncv9ug38pCIkf8T9aPL5 J8CistQ5YFForRGi CdvnbPZVfX5ckuzlv6eg bfuzNsBoHWDhXGq5XCh9 BELpjDlkDzIxQE44YHH5 SEOggmLxS0WyVRGp sKehAwS0z5E9Hc0CB5SC BfveJ4JEWXIBIVqygYR+ NZ84mb59S4OkPfnfBim7 ZAVqHSH2sZN7kN7n MIWuSLoqz3X1aUF3S6Ga ojOejr4vj3lmZQFpBDyk K26kyJGau9U3CHZonKO2 LYUbbXmlQzRbkB08 Oyc+CDAhuYmvk0KoPzus j8gjs1puePx7ZumgUHKr lgBwuXirJBQ0v6HuSa8g RKShcQS4uBA7uC6x HvGjVaJ2SQfkS393CjQr eWGrPwfsJ11pN6KngSM+ YFHdDai4SAFurToxHU5e W9CvWDRcnoaqdDUy hSwnWL5jLVRfoqebKGXo yR4jYVBeB9b7CyRtTwQ4 KRmcC8SdPYCbmqztIc89 qS4eYoTgGoB5KBct U7RfneP9RJPgxNZuJXza QCP8G20kz0Y3PPQcDZMb CME1vPZ4iD9myRutnigg bGVmdDsgdmVydGlj BPzfFHjbR175QIBbqYnb PkNvZGluZyBEYXRlOiAg MDgvMTkvMjAyNDwvdGQ+ URBbOSD6xCwbZCZz cRRnYOzgEu4ygGevaEwp EU1pANFenxyxZTOcqP4p RDZunYMchLfoNL2oNTLq njviz499BiKyHAK1 JNEajLWcH2SnkE0oRaSq AWCwHTVhD7MytHLoLIjx L543GFjaFfA0SVSyxwKp I2AnPQAkxDaySuU5 s5Q5Wr6Sb4YoqqpoE9Ft qXRjPhZjHgraQSa0G0Hc PjwvdHI+KM20MYUpLZ67 PZf2IVI5gEybFAsu PGKdM3RunN1wHuBwNWUo ZGRkOyc+PHRhYmxlIHdp ZHRoPScxMDAlJyBzdHls XV9gYw9nXXCfMQPd lPfyxFLfPvSun4atLYOf KWfqHJ5goEkcU6EetSG1 DZXob4h7Dt46A36qW2Au dXA+EXBakGP0gZC7 qD5iGqTgLoY8SYzpB765 DqDnwQVjJftps5zpv5ei vEp6RvG0UJQvrsGstLhx YQU7z4HlVq29R80m IHdpZHRoPSIxNSUiIHZh dNiewh5lzK6rHe4+PGNv uLH2hHH8qY8aKlThTyE6 NNyvU664QdHbgFPg Wehrj7dsy9uoyKm2AuXc MNMpwiWnfZcmNYP5z7Vg Xo40Z2EvyXlma6UnHsu0 wu90bGXlp7C3mQN1 J7PrTVLliphmgOWtuTcg IU3iKQXdyssvLQQehW9n MIFfI3o0AfXrSoD1OMtl N5PwpwO7YSNhqCYx GBXlnHYWsX3foriir3df yaauSiJxGWWzEFl0FGa4 SJWnmUmcSlGdEFO6GiU0 CTM9hLWzgL3bcXhn aacapM6lLyc+OTF0gNPp tKSCXK5oIyzmvZF+PHRk JPL6rDpeIQcuLVHzwN5c KIKdO5e4CkVtPkO0 HQrdQ3GemmE6ISXnfJUk KTDvlQFLkU3qeible9cj bdkpIvBxKWDfLSz3VXv4 LWFsaWduOiBsZWZ0 KiR4JNW3rDAsvB9whIhu jyjrtN7yKxq+QmlydGgg UWQ2NRf2X6OhDux8GWXh rYkaUC6ieAEkCYys Qz7lhConuBjbEA3dQGGh dtyhi036AiRqu7uvPOOw yDVvDCykMBM8R17xw8F5 EWOaLYBwBBF8lLQ5 pB5zgRcevuubbSZchAev noRwwMtoHOadFUftC091 TYEuqTjbPqYwYOd7Z1Cl Zbl8PUSuxTalWG7u oQDaROvrNb3enWsrwSre WI7lDAYkyneno079UbOw l2wzDAPbnTNyPIprKVQ0 X36ez8W2IALvKPPn MNH3mYE5dC0pxEoqbapx bGVmdDsgdmVydGljYWwt BFkzH736DJXbuUwrDqPt uUp7J1QiGpa1CSRy vBpoYI2auNWiFBveNp0q aMiygIluVP0pLWRocadn f769LrDly7vvAWQgeBXy OSjyJVN1P97sw9E1 OOXbQSBjIYA7nEW4sS9u bGlnbjogbGVmdDsgdmVy aWhrWBsfFJkuD817OXBx cDsnPlBhdGllbnQg JDxwGDm1S4TvUujgmSE+ HG61RNFrMT11pALplREq v3gpsDc0TnTwKRHgGHK3 bGsdPLrtl4NoRRAj Z52weWSij7K2HDLxbOxi jXQjRpSslZB7jR1rZPzo wcthw0hunxtgXxkyl9hl ak86dZ92C02aWWkx ZHRoPSIzMCUiIHZhbGln te0lyB7qSe6+PGNvbCB3 kMD3nM6cYLHyGkF7IZmz P410DgIvlLFsYizg d0cxb0fzpYx3WeQ7IACp zeQdjRccXBY7q6WwPd59 P92jZYscSAKdYARqMEUj IPNxjLjcrv6kpX0y Ii8+VOJhnDS3aTG5vD6j JiRlGwZ3JIlnO881XhUm iHKpFktgZ70jU2DbxNG+ KVGuYem9AFBliNbv ZZ8miWNmFRobXm4pQTA7 VeTjZnCnUCftX8UsOJZn munfceivlTM2HMWlBPZe zW51Jl7twHoqEBQu nWAWbK6cvgqeo6lokzww KiKyHIPtYEc8GWu2FNFb zCksTiEpICR7FkA0QEQ5 xOHcxP6ccPpvehgd hS6iM2FiHVRklfpsHp61 sW2yCrRlYsT9PQewYrd+ TUlMTEVSLCBNQVJBIFM8 Q7GdNoo3TXMosDrj EX7otZMuFFpoUg8xgLjy qXylHA3gYMHdbkwkJJVf qW3oXDZxdUUovPkbPN6h LWSalndmx943YfTo FLJ8YPPgpHXbX1JdoA7s XjBfSDPoYZIdR7SdgCJc XVccQ069LHmkNxR4LQLn ugBlS0ZcIEIrpWqw HtZ1q3H6Va2lLy3kDy3c XHjrVM48IS47wIYsm6I9 lIR7Y1FvFCVrulspzxnw jVK2FKHlOGZyjB40 pUHpEPopWz3kn3Q4d591 RMFbDGIqfY44Ru4yhJxp KRXrbEEXnK4htdqfi3bp cjogIzAwMDAwMDt0 ITy3OGKzfXsfBsLbLGL3 JsN6BFP5sMNhdR0asYrf kvhawU4lQzw+NTQgWWVh mcV9R5JeEyc3RKCs vFzkKB7kzGLbBJkyCu6k tKshvLolLJ4gMYZgqjlv STFubH4ePBEppEFibWjm BF1nFEKacdgfd637 YzMkXZZ9CRZlqOIlT7Ha eX3dEfMlJGJdBZTdW6Xs zPNrYPjlZ132RSzzXhO1 YAQfklNaA2VvHDCw hWkeBqX2k7U0Cm8TUD4J DTV9Q3PhIja5RTLecHmf BW8nsQEoHUphWv4iwOdw iLnlLM8oPJKambad FSJitK9qHGNkeAYscYxu DS6wEPIdttccp238KnEe ZUM4HWRywIGoS3SjcF4w DdAwIBQvZDFmY1Es jAMbNNtwS307YMduWpU5 TOMpkjWbP5ReNQXdfPaj DxZ5h5L9Rp0DiGPiH7Mj Z0u6U8BxKzwqkTX+ JV20WSOdSJ38eQFybYNg n1rfwVe8CwFdOCVpODV7 aKmyQVvyj7OoTVXuQ68c kYBiu6K3PFRnrJor lZItMkSroWY2fC1xUDfp whzsq9clyykcQtuhj1py pg71dT25N53bIVhkXKHe PSIzMCUiIHZhbGln nb9jrH2yGo9+PGNvbCB3 gAJ2xL5pNcWrXeU2FWor L403KlIraFWtOjjqf2up d7qcrLc7HmLyEYCf brKtdKlnCGD3y0KfEu00 V73iCMxaXDPmMLXdMKQe HEOqrBjcbh8boQ9fIx6+ EI4ih8odud39tI85 dHI+LTInSBH5lEwdABbz QXAnqS8iSMfhAbZ8IRYx KgFgdL56uNOeYNvkQi4f hCpevVhxKD2aVYAt vvndu687EwCcl4diOMSt pGFoWNunTXV8C28fn8I8 OEMxYVYgXVU7jRR5wB5g bGlnbjogbGVmdDsg cxBjnAncLValCIodZ107 WJJkaNccLuNphXBfH8kf xqSKCW2jAjmpjGW+PHRk YEC9pRlhBFmpAIGc oC4xDFPfL6d5HgScVjH8 VOdtA5JlajZ6VCKduMWr ELSrtMDJeE8eseqxs0yo cjogIzAwMDAwMDt0 LNq1NCWkpHsnWnJzBRX4 SaY3XGO3lWEchC0trVef nioumR3tEqf+RklOOjwv dGQ+PSZePFM8wIxr EWkjYMFisS9eFCQuR5r2 PdXrQtZ2LKavF7ZewmV8 HZQyeBCrFEMveZAXvB4v zgpye8bkonwuHlDg KJNcJCh4XAr4BXFtvRav MfQpOGF2NeE4UNL6qMUi qV1peSqvkzcazQ3wMka+ TVJOOjwvdGQ+PHRk CXI5hBcfOJrxUATjgB0t CSIkW2d0DzGkOuN4QApa M7KtziX0ZYForYGpWOSb qIEKeF7dygjoj6da aspoOvPjAGFhOEk1OPn5 EGRlyLnjEaFeNUL0ZhC2 QUE7rNHhcG5npOilarwz gN0tMeh+BNX4CQE1 MX19JE45G2UsGaalxDIv bGU+PHRhYmxlIHdpZHRo JApbRALdYhAqvBdvFP9v Rh8aODVxNLNlgRjd cHN (more content not included)... [facility] ANES POSTPROC EVALon 024 ANES POSTPROC EVAL HNO ID: [id number] Author: AZIZA SKINNER MD Service: Anesthesiology Author Type: Anesthesiologist Type: Anesthesia Postprocedure Evaluation Filed: 08/22/2023 10:34 Note Text: POST ANESTHESIA EVALUATION NOTE : 1970 Procedure Summary Date: 08/22/23 Room / Location: [facility] Anesthesia Start: 50 Anesthesia Stop: 1026 Procedure: EGD - THERAPEUTIC, EUS, OR TUBE INTERVENTIONS Diagnosis: Gastroparesis due to DM (HCC) (HCC) (For therapy of gastroparesis) Scheduled Providers: Martine Bowling MD Responsible Provider: Aziza Skinner MD Anesthesia Type: general ASA Status: 3 Anesthesia Type: general Airway Type: ETT Last Vitals Vitals Value Taken Time BP 139/67 08/22/23 1030 Temp 08/22/23 1034 Pulse 60 08/22/23 1032 Resp 20 08/22/23 1032 SpO2 92 % 08/22/23 1032 Vitals shown include unfiled device data. Post Anesthesia Patient Status Patient Evaluation: PACU. PACU/ICU Patient Condition: stable. Anticipated Disposition: phase 2 then home. Neurological Status: aware and responsive. Pulmonary Status: breathing comfortably on room air Airway Control: returned to baseline unsupported. Cardiovascular Status: stable. Pain Management: clinically adequate Postoperative Hydration: acceptable. Intraoperative Events: no significant anesthesia events Post Operative Nausea/Vomiting Status: no significant post operative nausea or vomiting Recommendation: continue current plan of care. Anesthesia Observations No Documentation SIGNATURE: Aziza Skinner MD PATIENT NAME: Naila Beltran DATE: August 22, 2023 TIME: 10:34 AM CSN: [id number] [facility] ANES PRE-OPon 08-22-2023 ANES PRE-OP HNO ID: [id number] Author: AZIZA SKINNER MD Service: Anesthesiology Author Type: Anesthesiologist Type: Anesthesia Preprocedure Evaluation Filed: 08/22/2023 09:35 Note Text: ANESTHESIOLOGY DAY OF SURGERY NOTE : 1970 Procedure Information Date/Time: 08/22/23 0930 Scheduled providers: Martine Bowling MD Procedure: EGD - THERAPEUTIC, EUS, OR TUBE INTERVENTIONS Location: [facility] Estimated body mass index is 38.37 kg/m? as calculated from the following: Height as of 08/09/23: 170.2 cm (5' 7 ). Weight as of 08/09/23: 111.1 kg (245 lb). Most recent hematocrit and potassium results: Hematocrit 36.7 06/13/2023 Potassium 3.5 06/13/2023 Relevant Problems CARDIO (+) Ascending aorta dilation (HCC) (+) Coronary artery disease of [place] artery of [place] heart with stable angina pectoris (HCC) (+) Vascular disease ENDO (+) Diabetes mellitus type 2 (HCC) GI (+) GERD (gastroesophageal reflux disease) -RENAL (+) Fatty liver NEURO-PSYCH (+) History of COVID-19 (+) Personal history of DVT (deep vein thrombosis) (+) Seizures (HCC) PULMONARY (+) History of COVID-19 (+) SOB (shortness of breath) I - PHYSICAL EVALUATION AIRWAY Patient intubated: No. Tracheostomy tube not present Mallampati: II. TM distance: >3 FB. Neck ROM: full ROM without neurological symptoms. Mouth opening: adequate. Short neck: no. Thick neck: no DENTAL Dentures, upper: complete. Dentures, lower: complete. Additional exam findings: no II - ANESTHESIA PLAN ASA Score: 3 Anesthetic Plan: general Airway type: ETT The patient is not a current smoker. NPO Status: adequate Beta Bhavna Monitoring Plan Monitoring plan: standard ASA. Post Procedure Analgesic Plan Postoperative analgesic plan: parenteral or oral opioids. Informed Consent Anesthetic risks, benefits, alternatives, personnel and consent discussed: yes. Patient / Responsible Alliance Party agrees to proceed: yes Patient / Surrogate agrees to blood products: blood products not planned DNR status not reviewed with patient and/or family prior to surgery. Significant changes in the patient condition since the History and Physical, not otherwise documented in primary service progress note: no. Potential Anesthesia issues that may suggest increased risk of complications or contraindication to planned procedure: none. Vitals Value Taken Time BP Pulse 51 08/22/23 0845 Resp 19 08/22/23 0845 Temp 36.4 ?C (97.5 ?F) 08/22/23 0845 SpO2 98 % 08/22/23 0845 Outpatient Medications as of 08/22/2023 Medication Sig metoprolol tartrate, short acting, (LOPRESSOR) 50 mg tablet Take 50 mg by mouth two times a day. busPIRone (BUSPAR) 10 mg tablet Take 10 mg by mouth three times a day. glyBURIDE (DIABETA) 5 mg tablet Take 5 mg by mouth. Takes 1 tablet with each small meal. Usually about 3 per day cetirizine (ZYRTEC) 10 mg tablet Take 10 mg by mouth. sitaGLIPtin-metFORMI N (JANUMET) 50-500 mg per tablet Take 1 tablet by mouth twice daily with meals. albuterol HFA (PROVENTIL HFA, VENTOLIN HFA) 90 mcg/actuation inhaler Ventolin HFA 90 mcg/actuation aerosol inhaler levETIRAcetam XR (KEPPRA XR) 500 mg 24 hr tablet Take 1,500 mg by mouth daily at bedtime. atorvastatin (LIPITOR) 40 mg tablet Take 40 mg by mouth once daily. Comp.Stocking,Thigh, Long,X-Lrg misc Wear stocking daily tiZANidine (ZANAFLEX) 2 mg tablet Take 2 mg by mouth every 8 hours as needed (neck pain). lansoprazole (PREVACID 24HR) 15 mg capsule Take 1 capsule by mouth once daily as needed. lubiprostone (AMITIZA) 8 mcg capsule Take 1 capsule by mouth two times a day with meals. ELIQUIS 2.5 mg tab(s) Take 1 tablet by mouth two times a day. iv contrast (will be provided with radiology [...] in the CT contrast administration guidelines link. enteric contrast (will be provided with radiology test) For CT ABD/PEL W IVCON Routine order Administer, As Directed One Time Only, via Oral, Rectal, both Oral and Rectal, Enteric Tube, Stoma or Indwelling Catheter, Enteric Contrast as designated per enteric contrast guidelines Fluticasone Furoate 27.5 mcg/actuation nasal spray fluticasone Fluticasone Furoate Active 1 SPRAY Intranasal Daily June 13, 2017 7:29am 06-13-2017 [facility] ([id number]) aspirin 81 mg chewable tablet q 24 HR. pregabalin (LYRICA) 150 mg capsule Take 150 mg by mouth twice daily. (Patient not taking: Reported on 08/09/2023) Multivitamins ORAL Chew None Entered Facility-Administere d Medications as o (more content not included)... Normal [facility] EGD Study observation Narrat christiano 08-22-2023 [facility] Gastrointestinal Endoscopy Patient Name: Naila Beltran Procedure Date: 08/22/2023 9:41 AM Date of : 1970 Admit Type: Outpatient Age: 53 Room: [place] [address] Gender: Female Note Status: Finalized Attending MD: Martine Bowling MD, [id number] Procedure: Upper GI endoscopy Indications: For therapy of gastroparesis Providers: Martine Bowling MD Patient Profile: This is a 53 year old female. Refer to note in patient chart for documentation of history and physical. Patient has symptoms. Referring Physician: Martine Bowilng MD (Referring MD) Medicines: General Anesthesia Complications: No immediate complications. Estimated blood loss: Minimal. Requesting Provider: Procedure: Pre-Anesthesia Assessment: - Prior to the procedure, a History and Physical was performed, and patient medications and allergies were reviewed. The patient is competent. The risks and benefits of the procedure and the sedation options and risks were discussed with the patient. All questions were answered and informed consent was obtained. Patient identification and proposed procedure were verified by the physician, the nurse, the anesthesiologist and the chro in the pre-procedure area in the endoscopy suite. Mental Status Examination: alert and oriented. Airway Examination: normal oropharyngeal airway and neck mobility. Respiratory Examination: clear to auscultation. CV Examination: normal. Prophylactic Antibiotics: The patient requires prophylactic antibiotics Per Oral Pyloromyotomy (POP). Prior Anticoagulants: The patient has taken Eliquis (apixaban), last dose was 4 days prior to procedure. ASA Grade Assessment: III - A patient with severe systemic disease. After reviewing the risks and benefits, the patient was deemed in satisfactory condition to undergo the procedure. The anesthesia plan was to use general anesthesia. Immediately prior to administration of medications, the patient was re-assessed for adequacy to receive sedatives. The heart rate, respiratory rate, oxygen saturations, blood pressure, adequacy of pulmonary ventilation, and response to care were monitored throughout the procedure. The physical status of the patient was re-assessed after the procedure. After obtaining informed consent, the endoscope was passed under direct vision. Throughout the procedure, the patient's blood pressure, pulse, and oxygen saturations were monitored continuously. The Endoscope was introduced through the mouth, and advanced to the second part of duodenum. The upper GI endoscopy was accomplished without difficulty. The patient tolerated the procedure well. Moderate Sedation: Patient underwent intubation and general anesthesia. No sedation was administered for this procedure. Total Procedure Duration: 0 hours 10 minutes 18 seconds Findings: The esophagus was normal. The stomach was normal. The examined duodenum was normal. Per Oral Pyloromyotomy (POP) Procedure: After upper endoscopy was completed, a prepyloric submucosal bleb was created with an endoscopic injection needle and methylene blue solution on the lesser curve approximately 3cm proximal to the pylorus. Next using the TT knife a transverse mucosotomy was made in this bleb. Then using CO2, the endoscopic cap, and TT knife a submucosal tunnel was made down and just past the pyloric muscle. Next the pylorus was divided with the TT knife. Hemostasis in the tunnel was confirmed and the scope pulled back into the stomach. Finally 4 endoscopic clips were placed to close the mucosotomy. Estimated blood loss was minimal. Impression: - Normal esophagus. - Normal stomach. - Normal examined duodenum. - No specimens collected. Recommendation: - Discharge (more content not included)... PROVATION [facility] Radiology Study observation (narrative) [facility] GLUCOSE, BLOOD (POC)on 08-21 Glucose [Mass/Vol] 130 mg/dL Abnormal 74 - 99 mg/dL [facility] Comment on above: Location:[facility], [address] [place], [place], [address] The Accu-Chek Inform II glucose meter has not been approved for testing on patients receiving intensive medical intervention or therapy and results from this point of care glucose test should not be used for patient management decisions in these cases. Inaccurate results may also occur from other interfering factors, such as N-acetylcysteine (blood concentrations of greater than 5mg/dL), galactose, extremes of hematocrit (<10 or >65), or high doses of ascorbic acid (vitamin C) greater than 3mg/dL. Consider alternate testing mechanisms (e.g. core lab, blood gas instrument) in the above situations. Interpretation and review of laboratory results Abnormal [facility] Glucose [Mass/Vol] 121 mg/dL Abnormal 74 - 99 mg/dL [facility] Comment on above: Location:[facility], [address] [facility], [place], [place], Critical access hospital The Accu-Chek Inform II glucose meter has not been approved for testing on patients receiving intensive medical intervention or therapy and results from this point of care glucose test should not be used for patient management decisions in these cases. Inaccurate results may also occur from other interfering factors, such as N-acetylcysteine (blood concentrations of greater than 5mg/dL), galactose, extremes of hematocrit (<10 or >65), or high doses of ascorbic acid (vitamin C) greater than 3mg/dL. Consider alternate testing mechanisms (e.g. core lab, blood gas instrument) in the above situations. Interpretation and review of laboratory results Abnormal [facility] HISTORY PHYSICALon HISTORY PHYSICAL HNO ID: [id number] Author: HOWIE DELONG PA-C Service: General Surgery Author Type: Physician Die Cast Technician Type: H&P Filed: 08/22/2023 08:48 Note Text: UPDATED HISTORY AND PHYSICAL EXAMINATION SERVICE DATE: 08/22/2023 SERVICE TIME: 8:03 AM SERVICE: General Surgery PHYSICAL EXAM MUST BE COMPLETED ON ADMISSION The History and Physical (completed in the past 30 days) has been reviewed and the patient has been examined. The contents accurately reflect the patient's condition with the following additions or revisions since the HANDP was completed. Patient denies any changes to health since last examination. Planned procedure for today is EGD Therapeutic with Endoscopic Pyloromyotomy. Medication reconciliation list reviewed in [facility]. Past medical history, past surgical history, social history and family history reviewed and updated in [facility]. ALLERGIES Allergen Reactions Aspirin Unknown Heparin Analogues Unknown Keflex [Cephalexin] Hives Penicillin G Hives LMP 04/01/2011 Pulse (!) 51 Temp 36.4 ?C (97.5 ?F) (Temporal) Resp 19 LMP 04/01/2011 SpO2 98% Examination indicates no changes. On examination today: Lungs: Clear to auscultation bilaterally. Heart: RRR, Normal S1/S2, No murmurs, rubs, gallops or thrills appreciated. Abdomen: BS+ in all quadrants, abdomen is soft, non tender, and without guarding. Assessment: Colon Polyps Gastroparesis due to DM Plan: EGD Therapeutic with Endoscopic Pyloromyotomy This HANDP can be found in the Electronic Medical Record dated 08/09/2023,Casey Mcadams PA-C SIGNATURE: Howie Delong PA-C PATIENT NAME: Naila Beltran DATE: August 22, 2023 TIME: 8:03 AM [facility] NURSING PROGon 08-22-2023 NURSING PROG HNO ID: [id number] Author: VERONICA MAO RN Service: ? Author Type: Registered Nurse Type: Nursing Progress Note Filed: 08/23/2023 12:23 Note Text: [facility] ENDOSCOPY POST PROCEDURE FOLLOW UP CALL [phone] (home) Date Phone Call Made: 08/23/2023 Attempt: Attempt #1 Spoke to: Patient SYMPTOM DESCRIPTION Pain or Discomfort rated as: 3 sore throat IV No complaints Diet Back to Previous Yes Nausea/Vomiting: None Bleeding: None Bowel Habits: Normal Other Issues: No Complaints Offered Was the nursing staff attentive to your needs? Yes Is there something our department could have done to make your experience more pleasant? No Veronica Mao RN Normal [facility] Upper GI endoscopyon 024 Upper GI endoscopy [facility] Gastrointestinal Endoscopy Patient Name: Naila Beltran Procedure Date: 08/22/2023 9:41 AM Date of : 1970 Admit Type: Outpatient Age: 53 Room: [place] [address] Gender: Female Note Status: Finalized Attending MD: Martine Bowling MD, [id number] Procedure: Upper GI endoscopy Indications: For therapy of gastroparesis Providers: Martine Bowling MD Patient Profile: This is a 53 year old female. Refer to note in patient chart for documentation of history and physical. Patient has symptoms. Referring Physician: Martine Bowling MD (Referring MD) Medicines: General Anesthesia Complications: No immediate complications. Estimated blood loss: Minimal. Requesting Provider: Procedure: Pre-Anesthesia Assessment: - Prior to the procedure, a History and Physical was performed, and patient medications and allergies were reviewed. The patient is competent. The risks and benefits of the procedure and the sedation options and risks were discussed with the patient. All questions were answered and informed consent was obtained. Patient identification and proposed procedure were verified by the physician, the nurse, the anesthesiologist and the chro in the pre-procedure area in the endoscopy suite. Mental Status Examination: alert and oriented. Airway Examination: normal oropharyngeal airway and neck mobility. Respiratory Examination: clear to auscultation. CV Examination: normal. Prophylactic Antibiotics: The patient requires prophylactic antibiotics Per Oral Pyloromyotomy (POP). Prior Anticoagulants: The patient has taken Eliquis (apixaban), last dose was 4 days prior to procedure. ASA Grade Assessment: III - A patient with severe systemic disease. After reviewing the risks and benefits, the patient was deemed in satisfactory condition to undergo the procedure. The anesthesia plan was to use general anesthesia. Immediately prior to administration of medications, the patient was re-assessed for adequacy to receive sedatives. The heart rate, respiratory rate, oxygen saturations, blood pressure, adequacy of pulmonary ventilation, and response to care were monitored throughout the procedure. The physical status of the patient was re-assessed after the procedure. After obtaining informed consent, the endoscope was passed under direct vision. Throughout the procedure, the patient's blood pressure, pulse, and oxygen saturations were monitored continuously. The Endoscope was introduced through the mouth, and advanced to the second part of duodenum. The upper GI endoscopy was accomplished without difficulty. The patient tolerated the procedure well. Moderate Sedation: Patient underwent intubation and general anesthesia. No sedation was administered for this procedure. Total Procedure Duration: 0 hours 10 minutes 18 seconds Findings: The esophagus was normal. The stomach was normal. The examined duodenum was normal. Per Oral Pyloromyotomy (POP) Procedure: After upper endoscopy was completed, a prepyloric submucosal bleb was created with an endoscopic injection needle and methylene blue solution on the lesser curve approximately 3cm proximal to the pylorus. Next using the TT knife a transverse mucosotomy was made in this bleb. Then using CO2, the endoscopic cap, and TT knife a submucosal tunnel was made down and just past the pyloric muscle. Next the pylorus was divided with the TT knife. Hemostasis in the tunnel was confirmed and the scope pulled back into the stomach. Finally 4 endoscopic clips were placed to close the mucosotomy. Estimated blood loss was minimal. Impression: - Normal esophagus. - Normal stomach. - Normal examined duodenum. - No specimens collected. Recommendation: - Discharge patient to home (ambulatory). - Full liquid diet for 1 week. - Use Protonix (pantoprazole) 40 mg PO BID for 1 month. - Use sucralfate tablets 1 gram PO BID for 1 month. Procedure Code(s): --- Professional --- 59424, Pyloroplasty 67122, Unlisted procedure, stomach Diagnosis Code(s): --- Professional --- K31.84, Gastroparesis CPT copyright 2020 [employer]. All rights reserved. The codes documented in this report are preliminary and upon medical insurance coder review may be revised to meet current compliance requirements. Attending Participation: I personally performed the entire procedure. Scope In: 10:06:27 AM Scope Out: 10:16:45 AM MD Martine Goyal MD 08/22/2023 10:19:59 AM This report has been signed electronically by Martine Bowling MD Number of Addenda: 0 Note Initiated On: 08/22/2023 9:41 AM Estimated Blood Loss: Estimated blood loss was minimal. [facility] 08-18-2023 [facility] Telephone ([employer]) NAILA BELTRAN ([id number]) 1970 F Date Time Provider Department 08/18/23 MARTINE BOWLING During your visit today, we recorded the following information about you: Katja Rios, LITO 08/18/2023 4:43 PM Signed Completed pre-procedure call for patients scheduled GPOEM/POP on Monday No answer - left message on VM reminding of diet- full liquids Monday and Monday then Clears on Monday. 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 - tiZANidine (ZANAFLEX) 2 mg tablet Take 2 mg by mouth every 8 hours as needed (neck pain). - busPIRone (BUSPAR) 10 mg tablet Take 10 mg by mouth three times a day. - lansoprazole (PREVACID 24HR) 15 mg capsule Take 1 capsule by mouth once daily as needed. - lubiprostone (AMITIZA) 8 mcg capsule Take 1 capsule by mouth two times a day with meals. - ELIQUIS 2.5 mg tab(s) Take 1 tablet by mouth two times a day. - iv contrast (will be provided with radiology [...] in the CT contrast administration guidelines link. - enteric contrast (will be provided with radiology test) For CT ABD/PEL W IVCON Routine order Administer, As Directed One Time Only, via Oral, Rectal, both Oral and Rectal, Enteric Tube, Stoma or Indwelling Catheter, Enteric Contrast as designated per enteric contrast guidelines - glyBURIDE (DIABETA) 5 mg tablet Take 5 mg by mouth. Takes 1 tablet with each small meal. Usually about 3 per day - cetirizine (ZYRTEC) 10 mg tablet Take 10 mg by mouth. - Fluticasone Furoate 27.5 mcg/actuation nasal spray fluticasone Fluticasone Furoate Active 1 SPRAY Intranasal Daily June 13, 2017 7:29am 06-13-2017 [facility] ([address]) - sitaGLIPtin-metFORMI N (JANUMET) 50-500 mg per tablet Take 1 tablet by mouth twice daily with meals. - aspirin 81 mg chewable tablet q 24 HR. - albuterol HFA (PROVENTIL HFA, VENTOLIN HFA) 90 mcg/actuation inhaler Ventolin HFA 90 mcg/actuation aerosol inhaler - levETIRAcetam XR (KEPPRA XR) 500 mg 24 hr tablet Take 1,500 mg by mouth daily at bedtime. - atorvastatin (LIPITOR) 40 mg tablet Take 40 mg by mouth once daily. - Comp.Stocking,Thigh, Long,X-Lrg misc Wear stocking daily - pregabalin (LYRICA) 150 mg capsule Take 150 mg by mouth twice daily. - Multivitamins ORAL Chew None Entered Problem List As Of Date 08/18/2023 Noted Resolved Hypercoagulable state [D68.59] 01/16/2013 Vascular disease [I99.9] 11/15/2017 Anticoagulated [Z79.01] 02/06/2020 HLD (hyperlipidemia) [E78.5] 02/06/2020 Coronary artery disease of [place] artery of brit*02/06/2020 Diabetes mellitus type 2 (HCC) [E11.9] 02/06/2020 GERD (gastroesophageal reflux disease) [K21.9] 02/06/2020 Personal history of DVT (deep vein thrombosis) *02/06/2020 Fatty liver [K76.0] 02/06/2020 Morbid obesity (HCC) [E66.01] 02/06/2020 Seizures (HCC) [R56.9] SOB (shortness of breath) [R06.02] PVD (peripheral vascular disease) (HCC) [I73.9] 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] History of COVID-19 [Z86.16] 03/04/2020 Obesity, Class III, BMI >= 40 [E66.01] 03/15/2020 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 NURSING PROGon 08-17-2023 NURSING PROG HNO ID: [id number] Author: ARIAN AHMADI, RN Service: ? Author Type: Registered Nurse Type: Nursing Progress Note Filed: 08/17/2023 10:37 Note Text: [facility] ENDOSCOPY PRE PROCEDURE CALL Johnna. I'm calling from [facility] endoscopy to provide you with the information for your surgery/procedure tomorrow. 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 Yes When anesthesia or sedation is being given: Patient instructed you must have an adult gas truck driver because you will not be able to work or drive for the rest of the day after your test.Yes Patient instructed to have a responsible, adult gas truck driver to take them home after the procedure Yes. Due to having sedation, there is no working or driving the day of the procedure. Your gas truck driver is allowed to wait here with you or they may drop you off and come back to pick you up. Patient instructed: Do not eat anything the morning of the procedure, including gum, hard candy and mints.Yes Patient instructed not bring any valuables, jewelry, or sethi and wear comfortable clothing. Do not wear makeup, lotion, or finger georgian. Yes Patient instructed: Please bring a list of medications including over the counter, vitamin, and herbals. If you are on inhalers, please do them in the morning before your test and bring them with you.Yes Blood pressure, seizure, or thyroid medications may be taken with a couple sips of water ONLY 4 hours prior to arrival time. Is the patient on blood thinners?yes Patient contacted their PCP for instructions If so,verify if pt contacted the prescribing doctor to see how long they may hold blood thinners prior to procedure. Are you diabetic?Yes If so, advise pt to contact prescribing doctor to verify if any modifications are needed for insulin and/or pills Reminder:diabetic medication instructions should be given by the patient's ordering physician. If blood sugar drops, they can have CLEAR liquids to bring it up until 3 hours prior to arrival time. Hospitalizations: No Procedure and/or bowel prep instructions given to patient and questions answered: Yes, and they verbalized their understanding of instructions given Any barriers to Patient learning (confusion? Pot Room Tapper needed?): Patient/Patient Veterinary Radiologist responded appropriately on phone. Please complete your Pre-Check In paperwork in My Chart if applicable. If patient needs to reschedule please call: [phone] [facility] phone number: [phone] Type of instruction given: Verbal by telephone contact[facility] Telephone ([employer]) NAILA BELTRAN ([id number]) 1970 F Date Time Provider Department 08/16/23 CASEY MCADAMS During your visit today, we recorded the following information about you: Rosangela Matos RN 08/16/2023 1:[address] Nguyễn's office today as well as yesterday to f/u on letter sent to see if pt requires any further Cardiac testing, left detailed message again on VM. Rosangela Matos RN August 16, 2023 1:52 PM Rosangela Matos RN 08/17/2023 10:38 AM Signed Left detailed msg for Dr Nguyễn at his [place] office ([phone]). Awaiting fax or callback Rosangela Matos RN August 17, 2023 10:38 AM Allergies As of Date: 08/16/2023 Noted Allergy Reaction ASPIRIN 16 - Unknown HEPARIN ANALOGUES 12/22/2011 16 - Unknown KEFLEX (CEPHALEXIN) 02/06/2010 4 - Hives PENICILLIN G 02/06/2010 4 - Hives Date Reviewed: 08/10/2023 Reviewed by: Veronica Quiles DO - Fully Assessed Reason for Visit: Preparations For Surgery [898] Prescriptions as of 08/17/2023 - metoprolol tartrate, short acting, (LOPRESSOR) 50 mg tablet Take 50 mg by mouth two times a day. - tiZANidine (ZANAFLEX) 2 mg tablet Take 2 mg by mouth every 8 hours as needed (neck pain). - busPIRone (BUSPAR) 10 mg tablet Take 10 mg by mouth three times a day. - lansoprazole (PREVACID 24HR) 15 mg capsule Take 1 capsule by mouth once daily as needed. - lubiprostone (AMITIZA) 8 mcg capsule Take 1 capsule by mouth two times a day with meals. - ELIQUIS 2.5 mg tab(s) Take 1 tablet by mouth two times a day. - iv contrast (will be provided with radiology [...] in the CT contrast administration guidelines link. - enteric contrast (will be provided with radiology test) For CT ABD/PEL W IVCON Routine order Administer, As Directed One Time Only, via Oral, Rectal, both Oral and Rectal, Enteric Tube, Stoma or Indwelling Catheter, Enteric Contrast as designated per enteric contrast guidelines - glyBURIDE (DIABETA) 5 mg tablet Take 5 mg by mouth. Takes 1 tablet with each small meal. Usually about 3 per day - cetirizine (ZYRTEC) 10 mg tablet Take 10 mg by mouth. - Fluticasone Furoate 27.5 mcg/actuation nasal spray fluticasone Fluticasone Furoate Active 1 SPRAY Intranasal Daily June 13, 2017 7:29am 06-13-2017 [facility] (02079) - sitaGLIPtin-metFORMI N (JANUMET) 50-500 mg per tablet Take 1 tablet by mouth twice daily with meals. - aspirin 81 mg chewable tablet q 24 HR. - albuterol HFA (PROVENTIL HFA, VENTOLIN HFA) 90 mcg/actuation inhaler Ventolin HFA 90 mcg/actuation aerosol inhaler - levETIRAcetam XR (KEPPRA XR) 500 mg 24 hr tablet Take 1,500 mg by mouth daily at bedtime. - atorvastatin (LIPITOR) 40 mg tablet Take 40 mg by mouth once daily. - Comp.Stocking,Thigh, Long,X-Lrg misc Wear stocking daily - pregabalin (LYRICA) 150 mg capsule Take 150 mg by mouth twice daily. - Multivitamins ORAL Chew None Entered Problem List As Of Date 08/16/2023 Noted Resolved Hypercoagulable state [D68.59] 01/16/2013 Vascular disease [I99.9] 11/15/2017 Anticoagulated [Z79.01] 02/06/2020 HLD (hyperlipidemia) [E78.5] 02/06/2020 Coronary artery disease of [place] artery of [place]rit*02/06/2020 Diabetes mellitus type 2 (HCC) [E11.9] 02/06/2020 GERD (gastroesophageal reflux disease) [K21.9] 02/06/2020 Personal history of DVT (deep vein thrombosis) *02/06/2020 Fatty liver [K76.0] 02/06/2020 Morbid obesity (HCC) [E66.01] 02/06/2020 Seizures (HCC) [R56.9] SOB (shortness of breath) [R06.02] PVD (peripheral vascular disease) (HCC) [I73.9] 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] History of COVID-19 [Z86.16] 03/04/2020 Obesity, Class III, BMI >= 40 [E66.01] 03/15/2020 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 Spivey, This patient was seen by me for virtual PACC for upcoming EGD with endoscopic per oral pyloromyotomy scheduled with Dr. Bowling on 08/21 at [facility]. Patient is on Eliquis for Factor V Leiden, h/o recurrent DVT and states she has a chronic left leg DVT (I am unable to find US report). Is she permitted to hold Eliquis for 2-3 days prior to procedure? Thank you for your time and help, Casey Mcadams PA-C PACC Checo Spivey MD 08/10/2023 1:00 PM Signed 2 days hold should be fine Checo Spivey MD 08/10/2023 1:53 PM Signed That should be fine. Thanks Katja Rios RN 08/10/2023 4:05 PM Signed Called patient to notify - no answer Left VM requesting return call to discuss pre-operative instructions in regards to blood thinner Katja Rios RN August 10, 2023 4:04 PM Casey Mcadams PA-C 08/10/2023 4:10 PM Signed [employer] message sent to patient with instructions. Thank you! Casey Mcadams PA-C [facility] Casey Mcadams PA-C 08/10/2023 4:18 PM Signed Patient confirmed receipt of [employer] message with instructions Casey Mcadams PA-C 08/10/2023 4:18 PM Casey Mcadams PA-C 08/21/2023 10:33 AM Signed Conversation for visibility: Checo Spivey MD Allemang, Matthew, MD11 days ago That should be fine. Thanks Note Martine Bowling MD You; Katja Rios RN; Gardenia Gupta PA-C; Checo Spivey MD11 days ago I usually prefer 3 days because the G-POEM procedure can bleed due to the flap dissection. Allergies As of Date: 08/10/2023 Noted Allergy Reaction ASPIRIN 16 - Unknown HEPARIN ANALOGUES 12/22/2011 16 - Unknown KEFLEX (CEPHALEXIN) 02/06/2010 4 - Hives PENICILLIN G 02/06/2010 4 - Hives Date Reviewed: 08/10/2023 Reviewed by: Veronica Quiles DO - Fully Assessed Reason for Visit: Preparations For Surgery [898] Prescriptions as of 08/21/2023 - metoprolol tartrate, short acting, (LOPRESSOR) 50 mg tablet Take 50 mg by mouth two times a day. - tiZANidine (ZANAFLEX) 2 mg tablet Take 2 mg by mouth every 8 hours as needed (neck pain). - busPIRone (BUSPAR) 10 mg tablet Take 10 mg by mouth three times a day. - lansoprazole (PREVACID 24HR) 15 mg capsule Take 1 capsule by mouth once daily as needed. - lubiprostone (AMITIZA) 8 mcg capsule Take 1 capsule by mouth two times a day with meals. - ELIQUIS 2.5 mg tab(s) Take 1 tablet by mouth two times a day. - iv contrast (will be provided with radiology [...] in the CT contrast administration guidelines link. - enteric contrast (will be provided with radiology test) For CT ABD/PEL W IVCON Routine order Administer, As Directed One Time Only, via Oral, Rectal, both Oral and Rectal, Enteric Tube, Stoma or Indwelling Catheter, Enteric Contrast as designated per enteric contrast guidelines - glyBURIDE (DIABETA) 5 mg tablet Take 5 mg by mouth. Takes 1 tablet with each small meal. Usually about 3 per day - cetirizine (ZYRTEC) 10 mg tablet Take 10 mg by mouth. - Fluticasone Furoate 27.5 mcg/actuation nasal spray fluticasone Fluticasone Furoate Active 1 SPRAY Intranasal Daily June 13, 2017 7:29am 06-13-2017 [facility] (08816) - sitaGLIPtin-metFORMI N (JANUMET) 50-500 mg per tablet Take 1 tablet by mouth twice daily with meals. - aspirin 81 mg chewable tablet q 24 HR. - albuterol HFA (PROVENTIL HFA, VENTOLIN HFA) 90 mcg/actuation inhaler Ventolin HFA 90 mcg/actuation aerosol inhaler - levETIRAcetam XR (KEPPRA XR) 500 mg 24 hr tablet Take 1,500 mg by mouth daily at bedtime. - atorvastatin (LIPITOR) 40 mg tablet Take 40 mg by mouth once daily. - Comp.Stocking,Thigh, Long,X-Lrg misc Wear stocking daily - pregabalin (LYRICA) 150 mg capsule Take 150 mg by mouth twice daily. - Multivitamins ORAL Chew None Entered Problem List As Of Date 08/10/2023 Noted Resolved Hypercoagulable state [D68.59] 01/16/2013 Vascular disease [I99.9] 11/15/2017 Anticoagulated [Z79.01] 02/06/2020 HLD (hyperlipidemia) [E78.5] 02/06/2020 Coronary artery disease of [place] artery of [place]*02/06/2020 Diabetes mellitus type 2 (HCC) [E11.9] 02/06/2020 GERD (gastroesophageal reflux disease) [K21.9] 02/06/2020 Personal history of DVT (deep vein thrombosis) * (more content not included)... Normal [facility] HISTORY PHYSICALon HISTORY PHYSICAL HNO ID: [id number] Author: CASEY MCADAMS PA-C Service: ? Author Type: Physician Die Cast Technician Type: H&P Filed: 08/21/2023 10:34 Note Text: PREANESTHESIA CONSULT CLINIC TELEHEALTH VISIT Patient has been identified by name and date of : Yes This is a virtual visit using [employer] Video Visit. It require patient-provider interaction for the medical decision making as documented below. Reason for contact: PACC visit Accompanied by: Self Scheduled Surgery: EGD with endoscopic per oral pyloromyotomy I have communicated my name and active licensure. The patient's identity and physical location were verified at the time of this visit. Either the patient or their legal public health representative has been informed of the risks and benefits of -- and alternatives to -- treatment through a remote evaluation and consents to proceed with the evaluation remotely. ASSESSMENT: 1. Preop examination Scheduled for above procedure 2. Neck pain Patient reports she has a pinched nerve in her neck. She denies numbness/tingling with neck ROM 3. Ascending aorta dilation (HCC) 4.4 cm ascending aortic aneurysm. Stable per lieutenant/deputy Dr. Nguyễn's note with plan for yearly follow-up echo 4. Gastroesophageal reflux disease, unspecified whether esophagitis present Takes Prevacid prn. Patient states that coca-cola and peppermints are helpful for symptoms. See HPI 5. Gastroparesis due to DM (HCC) (HCC) See HPI. Scheduled for above procedure. Patient will be NPO after midnight and will follow surgeon's pre-op dietary instructions 6. 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 She admits to chronic left leg DVT. Denies acute symptoms. She is maintained on Eliquis and follows with hematology 7. Hyperlipidemia, unspecified hyperlipidemia type On Lipitor 8. Obesity, Class II, BMI 35-39.9 BMI 38 9. SOB (shortness of breath) Patient admits to chronic SOB with exertion. She uses Albuterol prn up to twice a day, but typically only when she's carrying something while climbing the stairs. She does not use it daily. She denies acute symptoms. She has had cardiac workup and spirometry. Stable. 10. PVD (peripheral vascular disease) ([facility]) History of stents and x2 lower extremity bypass procedures. She will continue 81 mg aspirin for procedure. 11. History of DVT (deep vein thrombosis) Patient has had multiple DVTs. Her last acute DVT was ~2019. Patient denies acute symptoms. She mentions she has a chronic left leg DVT. She is on Eliquis. 12. Diabetes mellitus type 2 (HCC) On Glyburide and Janumet. Patient's most recent Hgb A1C was 7.4% on 06/28/2023. Labs within PACC guidelines to proceed. 13. Anxiety 14. PTSD On Buspar tid which is helpful. Patient denies SI/HI. Patient admits to PTSD. She denies triggers we should be aware of for her procedure. 15. Seizure disorder ([facility]) Controlled on Keppra. Patient reports last seizure was about 6-8 years ago. Stable per patient. METS: Walk a block or two on level ground (2.75 METs) Climb a flight of stairs or walk up a hill (5.50 METs) Patient denies any chest pain or undue shortness of breath with the above physical activity. Goes to [place] sometimes, active and cares for 2 year old grandchild, but admits to chronic MIRELES. She might use her inhaler if climbing the stairs She admits to occasional resting dull achy chest pain after activity ANESTHESIA FINDINGS: Intubation History: No history of difficult intubation Significant Anesthesia Considerations: Difficult IV/Vein Access: has small and rolling veins, often needs small needle Airway Exam: General: Obese Mallampati Score is CLASS II ULBT: Unable to perform Neck: short neck, full ROM Mouth: Normal tongue size and Mouth opening greater than 2 finger breaths Dentition: Edentulous Airway History: No abnormal airway history STOP BANG Score: Criteria: Tired Age over 50 (53 year old) Score = 2 Subjective CHIEF COMPLAINT: Patient presents with: Pre-Op Visit HPI: This is a 52 year old female who presents with nausea, vomiting, early satiety and intermittent abdominal pain. Symptoms started 2-3 years ago. She admits to GERD that is sometimes controlled. Drinking coke and peppermints are helpful for her symptoms. She was diagnosed with gastroparesis and elects to proceed with above procedure. . ACTIVE PROBLEM LIST Hypercoagulable State (Hcc) Vascular Disease Anticoagulated Hld (Hyperlipidemia) Coronary Artery Disease of [place] Artery of [place] Heart With Stable Angina Pectoris (Hcc) Diabetes Mellitus Type 2 (Hcc) Gerd (Gastroesophageal Reflux Disease) Personal History of Dvt (Deep Vein Thrombosis) Fatty Liver Morbid Obesity (Hcc) Seizures (Hcc) Sob (Shortness of Breath) Pvd (Peripheral Vascular Disease) (Hcc) Ascending Aorta Dilation (Hcc) History of Covid-19 (more content not included)... Normal [facility] ACETYLCHOLINE REC BINDING AB on 08-02-2023 ACETYLCHOLINE BINDING, QUAL Negative Normal Negative [facility] Comment on above: Order Comment: Sera robles Type: BLOOD SPECIMENOrdering Facility: [facility] Address: [address] [place] [address] Result Comment: Anti -acetylcholine receptor binding antibody test is used as an aid in diagnosis of myasthenia gravis. A negative result cannot exclude myasthenia gravis. Clinical correlation is required. Performed By: #### A CHRAB, 69039-7 ####[facility] LABCLIA [id number] [place] [address] [place] Acetylcholine receptor binding Ab (S) [Moles/Vol] 0.16 nmol/L Normal <0.21 [facility] Comment on above: Order Comment: Sera robles Type: BLOOD SPECIMENOrdering Facility: [facility] Address: [address] [place] [address] Performed By: #### A CHRAB, 39818-5 ####[facility] LABCLIA [id number] [place] [id number] [place] AMINO ACIDS, PLASMA W/ CONSU LTATIONon 08-02-2023 Alanine [Moles/Vol] 413 umol/L Normal 177-583 [facility] Comment on above: Order Comment: Sera robles Type: BLOOD SPECIMENOrdering Facility: [facility] Address: [address] [place] [address] Performed By: #### P AABI ####[facility] LABCLIA [id number] [place] [address] [place] Alloisoleucine [Moles/Vol] <1 Normal 0-2 [facility] Comment on above: Order Comment: Speci men Type: BLOOD SPECIMENOrdering Facility: [facility] Address: [address] [place] [address] Performed By: #### P AABI ####[facility] LABCLIA [id number] [place] [address] [place] Alpha aminoadipate [Moles/Vol] <1 Normal 0-6 [facility] Comment on above: Order Comment: Speci men Type: BLOOD SPECIMENOrdering Facility: [facility] Address: [address] [place] [address] Performed By: #### P AABI ####[facility] [id number] [address] [place] AMINO ACID CONSULTATION, PLASMA Normal [facility] Comment on above: Order Comment: Speci men Type: BLOOD SPECIMENOrdering Facility: [facility] Address: [address] [place] [address] Result Comment: This plasma amino acid analysis shows no significant abnormalities. Reference intervals from Isaura E, Barb MG, Beltran HARMONY, and Manjinder DK: Biochemical Genetics: A Laboratory Manual, Copyright 1989 by [employer] Reference intervals not established for some amino acids. This test was developed and its performance characteristics determined by [facility]'s Delvis JShira [facility] Pathology and [facility] [place] (-[facility]). It has not been cleared or approved by the FDA. -[facility] is regulated under CLIA as qualified to perform high complexity testing. This test is used for clinical purposes. It should not be regarded as investigational or for research. Performed By: #### P AABI ####[facility] LABCLIA [id number] [address] [place] AMINO ACIDS REVIEW, PLASMA Reviewed by Kevin Hardin MD, Ph.D ([id number]) [facility] Comment on above: Order Comment: Speci men Type: BLOOD SPECIMENOrdering Facility: [facility] Address: [address] [place] [address] Performed By: #### P AABI ####[facility] LABCLIA [id number] [place] [address] [place] Arginine [Moles/Vol] 29 umol/L Normal 15-128 [facility] Comment on above: Order Comment: Speci men Type: BLOOD SPECIMENOrdering Facility: [facility] Address: [address] [place] [address] Performed By: #### P AABI ####[facility] LABCLIA [id number] [place] [address] [place] Asparagine [Moles/Vol] 46 umol/L Normal 35-74 [facility] Comment on above: Order Comment: Speci men Type: BLOOD SPECIMENOrdering Facility: [facility] Address: [address] [place] [address] Performed By: #### P AABI ####[facility] LABCLIA [id number] [place] [address] [place] Aspartate [Moles/Vol] 3 umol/L Normal 1-25 [facility] Comment on above: Order Comment: Speci men Type: BLOOD SPECIMENOrdering Facility: [facility] Address: [address] [place] [address] Performed By: #### P AABI ####[facility] LABCLIA [id number] [place] [address] [place] Citrulline [Moles/Vol] 12 umol/L Normal 12-55 [facility] Comment on above: Order Comment: Speci men Type: BLOOD SPECIMENOrdering Facility: [facility] Address: [address] [place] [address] Performed By: #### P AABI ####[facility] LABCLIA [id number] [place] [address] [place] Cystine [Moles/Vol] 44 umol/L Normal 5-82 [facility] Comment on above: Order Comment: Speci men Type: BLOOD SPECIMENOrdering Facility: [facility] Address: [address] [place] [address] Performed By: #### P AABI ####[facility] LABCLIA [id number] [place] [address] [place] Glutamate [Moles/Vol] 51 umol/L Normal 10-131 [facility] Comment on above: Order Comment: Speci men Type: BLOOD SPECIMENOrdering Facility: [facility] Address: [address] [place] [address] Performed By: #### P AABI ####[facility] LABCLIA [id number] [place] [address] [place] Glutamine [Moles/Vol] 641 umol/L Normal 205-756 [facility] Comment on above: Order Comment: Speci men Type: BLOOD SPECIMENOrdering Facility: [facility] Address: [address] [place] [address] Performed By: #### P AABI ####[facility] LABCLIA [id number] [place] [address] [place] Glycine [Moles/Vol] 242 umol/L Normal 151-490 [facility] Comment on above: Order Comment: Speci men Type: BLOOD SPECIMENOrdering Facility: [facility] Address: [address] [place] [address] Performed By: #### P AABI ####[facility] LABCLIA [id number] [place] [address] [place] Histidine [Moles/Vol] 69 umol/L Low 72-124 [facility] Comment on above: Order Comment: Speci men Type: BLOOD SPECIMENOrdering Facility: [facility] Address: [address] [place] [address] Performed By: #### P AABI ####[facility] LABCLIA [id number] [place] [address] [place] Hydroxylysine [Moles/Vol] <1 High <=0 [facility] Comment on above: Order Comment: Speci men Type: BLOOD SPECIMENOrdering Facility: [facility] Address: [address] [place] [address] Performed By: #### P AABI ####[facility] LABCLIA [id number] [place] [address] [place] Hydroxyproline [Moles/Vol] 7 umol/L Normal 0-53 [facility] Comment on above: Order Comment: Speci men Type: BLOOD SPECIMENOrdering Facility: [facility] Address: [address] [place] [address] Performed By: #### P AABI ####[facility] LABCLIA [id number] [place] [address] [place] Isoleucine [Moles/Vol] 66 umol/L Normal 30-108 [facility] Comment on above: Order Comment: Speci men Type: BLOOD SPECIMENOrdering Facility: [facility] Address: [address] [place] [address] Performed By: #### P AABI ####[facility] LABCLIA [id number] [place] [address] [place] Leucine [Moles/Vol] 122 umol/L Normal 72-201 [facility] Comment on above: Order Comment: Speci men Type: BLOOD SPECIMENOrdering Facility: [facility] Address: [address] [place] [address] Performed By: #### P AABI ####[facility] LABCLIA [id number] [place] [address] [place] Lysine [Moles/Vol] 181 umol/L Normal 116-296 [facility] Comment on above: Order Comment: Speci men Type: BLOOD SPECIMENOrdering Facility: [facility] Address: [address] [place] [address] Performed By: #### P AABI ####[facility] LABCLIA [id number] [place] [address] [place] Methionine [Moles/Vol] 18 umol/L Normal 10-42 [facility] Comment on above: Order Comment: Speci men Type: BLOOD SPECIMENOrdering Facility: [facility] Address: [address] [place] [address] Performed By: #### P AABI ####[facility] LABCLIA [id number] [place] [address] [place] Ornithine [Moles/Vol] 78 umol/L Normal 48-195 [facility] Comment on above: Order Comment: Speci men Type: BLOOD SPECIMENOrdering Facility: [facility] Address: [address] [place] [address] Performed By: #### P AABI ####[facility] LABCLIA [id number] [place] [address] [place] Phenylalanine [Moles/Vol] 70 umol/L Normal 35-85 [facility] Comment on above: Order Comment: Speci men Type: BLOOD SPECIMENOrdering Facility: [facility] Address: [address] [place] [address] Performed By: #### P AABI ####[facility] LABCLIA [id number] [place] [address] [place] Proline [Moles/Vol] 178 umol/L Normal 97-329 [facility] Comment on above: Order Comment: Speci men Type: BLOOD SPECIMENOrdering Facility: [facility] Address: [address] [place] [address] Performed By: #### P AABI ####[facility] LABCLIA [id number] [place] [address] [place] Sarcosine [Moles/Vol] <1 High <=0 [facility] Comment on above: Order Comment: Speci men Type: BLOOD SPECIMENOrdering Facility: [facility] Address: [address] [place] [address] Performed By: #### P AABI ####[facility] LABCLIA [id number] [place] [address] [place] Serine [Moles/Vol] 78 umol/L Normal 58-181 [facility] Comment on above: Order Comment: Speci men Type: BLOOD SPECIMENOrdering Facility: [facility] Address: [address] [place] [address] Performed By: #### P AABI ####[facility] LABCLIA [id number] [place] [address] [place] Taurine [Moles/Vol] 49 umol/L Low 54-210 [facility] Comment on above: Order Comment: Speci men Type: BLOOD SPECIMENOrdering Facility: [facility] Address: [address] [place] [address] Performed By: #### P AABI ####[facility] LABCLIA [id number] [place] [address] [place] Threonine [Moles/Vol] 161 umol/L Normal 60-225 [facility] Comment on above: Order Comment: Speci men Type: BLOOD SPECIMENOrdering Facility: [facility] Address: [address] [place] [address] Performed By: #### P AABI ####[facility] LABCLIA [id number] [place] [address] [place] Tyrosine [Moles/Vol] 74 umol/L Normal 34-112 [facility] Comment on above: Order Comment: Speci men Type: BLOOD SPECIMENOrdering Facility: [facility] Address: [address] [place] [address] Performed By: #### P AABI ####[facility] LABCLIA [id number] [place] [address] [place] Valine [Moles/Vol] 215 umol/L Normal 119-336 [facility] Comment on above: Order Comment: Speci men Type: BLOOD SPECIMENOrdering Facility: [facility] Address: [address] [place] [address] Performed By: #### P AABI ####[facility] LABCLIA [id number] [place] [address] [place] C-REACTIVE PROTEINon 024 CRP [Mass/Vol] 1.2 mg/dL High NINF - 0.9 mg/dL [facility] CARNITINE FREE AND TOTAL, PL ASMAon 08-02-2023 AC/FC RATIO 0.2 Normal 0.1-0.8 [facility] Comment on above: Order Comment: Speci men Type: BLOOD SPECIMENOrdering Facility: [facility] Address: [address] [place] [address] Performed By: #### C ALESSANDRA ####[facility] LABCLIA [id number] [place] [address] ACYLCARNITINE (AC) 6 nmol/mL Normal 5-30 [facility] Comment on above: Order Comment: Speci men Type: BLOOD SPECIMENOrdering Facility: [facility] Address: [address] [place] [address] Performed By: #### C ALESSANDRA ####[facility] LABCLIA [id number] [place] [address] CARNITINE FREE (FC) 40 nmol/mL Normal 25-54 [facility] Comment on above: Order Comment: Speci men Type: BLOOD SPECIMENOrdering Facility: [facility] Address: [address] [place] [address] Performed By: #### C ARNFT ####[facility] LABCLIA [id number] [place] [address] CARNITINE TOTAL 46 nmol/mL Normal 34-78 [facility] Comment on above: Order Comment: Speci men Type: BLOOD SPECIMENOrdering Facility: [facility] Address: [address] [place] [address] [place] [id number] Performed By: ###Lynette APARICIO ####[facility] LABCLIA [id number] [place] [address] INTERPRETATION SEE NOTE Normal [facility] Comment on above: Order Comment: Speci men Type: BLOOD SPECIMENOrdering Facility: [facility] Address: [address] [place], [place] [address] [address] Result Comment: RESU LT: In this sample, the carnitine profile was normal. ADDITIONAL INFORMATION This test was developed and its performance characteristics determined by [facility] in a manner consistent with CLIA requirements. This test has not been cleared or approved by the U.S. Food and Drug Administration. Test Performed by: [facility] [place] [address] Managed Services Sales Consultant: Damaso Osei Ph.D.; CLIA# [id number] Performed By: ###Lynette APARICIO ####[facility] LABCLIA [id number] [place] [id number] CK SerPl-cCncon 08-02-2023 CK [Catalytic activity/Vol] 25 U/L Low 42-196 [facility] Comment on above: Order Comment: Speci men Type: BLOOD SPECIMENOrdering Facility: [facility] Address: [address] [place] [address] Performed By: #### 2 157-6, 1987-06 ####[facility] LABORATORYCLIA [id number] [place] [id number] [place] CNOVon 08-02-2023 CNOV Office Visit (GENSSP) NAILA BELTRAN ([id number]) 1970 F Date Time Provider Department 08/02/23 1:00 PM MARTINE BOWLING During your visit today, we recorded the following information about you: Pulse Blood pressure Weight Height 50/minute 146/69 113.7 kg 1.702 m BlankdeniAleidamarquiseREGINA 08/02/2023 9:30 AM Signed What is the reason for your visit today? new Who is your referring physician? pcp Are you having poor oral intake? NO Have you had unintentional weight loss of 15 lbs/7 Kg in the last 3-6 months? NO Bowels: constipated Wound: n/a Temperature: No Drains: No Jessica Mendez MA 08/02/2023 12:56 PM Signed What is the reason for your visit today? New gp Who is your referring physician? Cece hannon Are you having poor oral intake? YES Have you had unintentional weight loss of 15 lbs/7 Kg in the last 3-6 months? NO Bowels: diarrhea Wound: clean AND dry Temperature: No Drains: No Martine Bowling MD 08/02/2023 2:00 PM Signed Assessment ASSESSMENT 52 year old female with medical refractory gastroparesis. PLAN I discussed surgical therapy for gastroparesis in detail. Naila Beltran is candidate for G-POEM/POP (Per-Oral Pyloromyotomy) Will need to hold Anticoagulation The patient was warned about possible complications from the POP procedure including but not limited to increased nausea, vomiting, bloating, abdominal pain, ulcers and bleeding, increased diarrhea to the point of urgency or even stool incontinence, and finally gastric perforation. They agree to proceed with the procedure. NAME: Naila Beltran CLINIC NO: [id number] DATE OF SERVICE: August 01, 2023 This is an initial consultation for Naila Beltran who was referred to me by Dr. Veronica Quiles for evaluation of medical refractory gastroparesis. My final recommendation will be communicated via shared electronic medical record. CHIEF COMPLAINT DM Gastroparesis HISTORY OF PRESENT ILLNESS Naila Beltran is a 52 year old female who comes in today for surgical evaluation for management of gastroparesis. The patient has been evaluated thoroughly including an EGD, and gastric emptying study. 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 Stent vessels - left leg Phlegmagia 2008 and 2011), incomplete bladder evacuation. HgbA1c: 7.4 06/28/2023 Duration of symptoms (months): 2 years, Urgency, bloating and left flank/epigastrium pain Weight changes in last 3 months: Stable Diet: Water, coke, peppermint, crackers, chicken and turkey, fish, rice sometimes, eggs, peanut butter, cherries, blueberries, yogurt. No salads or raw vegetables GERD: NO medications is symptomatic - previously was on pantoprazole and Pepcid without relief Dysphagia: Yes Bowel Movements: Alternating constipation and diarrhea. Can go up to 3 days without a BM Started on Amitiza today by Dr Quiles Pain: Constant LLQ pain stabbing in nature. Intermittent stabbing pain upper stomach with eating Narcotics: No Smoking/Vaping: No THC: No Previous surgery: Bladder surgery as an infant, iliac stents, hysterectomy 2011, Lap cholecystectomy 2020 Previous Feeding tube(s): No Date of Last EGD: 10/11/2019 EGD with Botox: No - If so, how long did it last: NA Exercise: Walking Job/Edu/Retired/Disa bility: Disability Since Jan 2009 Gastric Emptying Study Results (05/18/2023) 1 Hour = 70% Retained 2 Hour = 45% Retained 4 Hour = 21% Retained SMART Pill (none) Gastroparesis cardinal symptom index 1. nausea 5 2. retching 3 3. vomiting 3 4. stomach fullness 4 5. not able to finish a normal-sized meal 5 6. feeling excessively full after meals 5 7. loss of appetite 5 8. bloating (feeling like you need to loosen your clothes) 5 9. stomach or belly visibly larger 5 GCSI - 4.36 Scale (0-none; 1-very mild; 2-mild; 3-moderate; 4-severe; 5-very severe) PAST HISTORY PAST MEDICAL HISTORY Diagnosis Date Coronary artery disease involving [place] coronary artery of [place] heart without angina pectoris 02/06/2020 Depression DVT of leg (deep venous thrombosis) (HCC) Gastroparesis History of blood transfusion x 3- no reactions History of COVID-19 03/04/2020 Seizures (HCC) Type 2 diabetes mellitus without complication, without long-term current use of insulin (HCC) 02/06/2020 PAST SURGICAL HISTORY Procedure Laterality Date HYSTERECTOMY HX LAPAROSCOPIC CHOLECYSTECTOMY 03/16/2020 PAST SURGICAL HISTORY OF left leg x 6 to remove blood clots PAST SURGICAL HISTORY OF jugular vein to remove blood clots PAST SURGICAL HISTORY OF vein bypass x (more content not included)... Normal [facility] Office Visit (GENSSP) NAILA BELTRAN ([id number]) 1970 F Date Time Provider Department 08/02/23 11:00 AM [facility] During your visit today, we recorded the following information about you: Carol Cottrell, PhD 08/02/2023 5:01 PM Signed ``Behavioral Medicine [facility] [place] Name: Naila Beltran MR#: [id number] Date: 08/02/2023 Time: ? hour Referred by: Dr. Quiles Reason for Referral: gastroparesis interdisciplinary clinic - address psychological factors as they affect physical condition Information relayed back to referral source via electronic medical record Her chart was reviewed, and she gave her own complex medical history. She was seen with her partner. The basic principles of the brain gut connection were explored. Emphasis was placed on the effects of stress and emotions on physiology. She says she had been on medication for her depression and anxiety but has come off and said that she wanted to deal with her GI problems first before she went back to her PCP to look and other medication possibilities. We discussed why she might benefit from starting that treatment now and how it might address her mood as well as her GI issues. She discussed ways in which her medical condition had had an effect on her life. She has a very poor diet; she has not had weight loss. She was given information about ways to mediate her emotional and physiological response. She was introduced to relaxation training. She was given the website for the [facility] and shown the relaxation recordings with the recommendation to practice this and the rationale behind their use. Follow-up was discussed. Carol Liang, Ph.D. Referring Provider: CECE HANNON [[id number]] Allergies As of Date: 08/02/2023 Noted Allergy Reaction ASPIRIN 16 - Unknown HEPARIN ANALOGUES 12/22/2011 16 - Unknown KEFLEX (CEPHALEXIN) 02/06/2010 4 - Hives PENICILLIN G 02/06/2010 4 - Hives Date Reviewed: 08/02/2023 Reviewed by: Martine Bowling MD - Fully Assessed Primary Visit Diagnosis:Gastropare sis [K31.84] Other Visit Diagnosis:Type 2 diabetes mellitus without complication, without long-term current use of insulin (HCC) [E11.9] Prescriptions as of 08/02/2023 - lubiprostone (AMITIZA) 8 mcg capsule Take 1 capsule by mouth two times a day with meals. - ELIQUIS 2.5 mg tab(s) Take 1 tablet by mouth two times a day. - iv contrast (will be provided with radiology [...] in the CT contrast administration guidelines link. - enteric contrast (will be provided with radiology test) For CT ABD/PEL W IVCON Routine order Administer, As Directed One Time Only, via Oral, Rectal, both Oral and Rectal, Enteric Tube, Stoma or Indwelling Catheter, Enteric Contrast as designated per enteric contrast guidelines - glyBURIDE (DIABETA) 5 mg tablet take 2 tablets by mouth twice a day with meals - docusate sodium (COLACE) 100 mg capsule Take 100 mg by mouth as needed. - cetirizine (ZYRTEC) 10 mg tablet Take 10 mg by mouth. - Fluticasone Furoate 27.5 mcg/actuation nasal spray fluticasone Fluticasone Furoate Active 1 SPRAY Intranasal Daily June 13, 2017 7:29am 06-13-2017 [facility] (21766) - sitaGLIPtin-metFORMI N (JANUMET) 50-500 mg per tablet Take 1 tablet by mouth twice daily with meals. - aspirin 81 mg chewable tablet q 24 HR. - albuterol HFA (PROVENTIL HFA, VENTOLIN HFA) 90 mcg/actuation inhaler Ventolin HFA 90 mcg/actuation aerosol inhaler - levETIRAcetam XR (KEPPRA XR) 500 mg 24 hr tablet Take 500 mg by mouth twice daily. - metoprolol tartrate, short acting, (LOPRESSOR) 25 mg tablet twice daily. - atorvastatin (LIPITOR) 40 mg tablet Take 40 mg by mouth once daily. - Comp.Stocking,Thigh, Long,X-Lrg misc Wear stocking daily - pregabalin (LYRICA) 150 mg capsule Take 150 mg by mouth twice daily. - Multivitamins ORAL Chew None Entered Problem List As Of Date 08/02/2023 Noted Resolved Hypercoagulable state [D68.59] 01/16/2013 Vascular disease [I99.9] 11/15/2017 Anticoagulated [Z79.01] 02/06/2020 HLD (hyperlipidemia) [E78.5] 02/06/2020 Coronary artery disease of [place] artery of brit*02/06/2020 Type 2 diabetes mellitus without complication, *02/06/2020 GERD (gastroesophageal reflux disease) [K21.9] 02/06/2020 Personal history of DVT (deep vein thrombosis) *02/06/2020 Fatty liver [K76.0] 02/06/2020 Morbid obesity (HCC) [E66.01] 02/06/2020 Seiz (more content not included)... Normal [facility] Office Visit (GASTSP) NAILA BELTRAN ([id number]) 1970 F Date Time Provider Department 08/02/23 10:00 AM VERONICA QUILES [facility] During your visit today, we recorded the following information about you: Pulse Blood pressure Weight Height 50/minute 148/69 113.7 kg 1.702 m Veronica Quiles, DO 08/02/2023 9:54 AM Signed GASTROPARESIS CONSULT Patient is referred by Dr. Cece Hannon for an opinion regarding GP and my final recommendations will be communicated back to the requesting physician by way of a copy of today's office notes. PRESENTING COMPLAINT AND HISTORY Naila is a 52 yr old female w/hx of CAD, depression, DVT of leg, Leiden Factor 5, hx blood tranfusion x3, DM2, seizures, hysterectomy, and lap cholecystectomy that had an abnormal gastric emptying study 04/2023 showing 21% retention at 4 hours. Gastroparesis symptoms started 1.5 years ago. DM2, diagnosed 2016, Hgb A1c - unsure of result, neuropathy in feet and legs. Denies being on any GLP-1 Reptor Agnotists for DM management. Abd pain is intermittent with certain foods. Diarrhea and constipation alternate. Failed Miralax and Dulcolax. Takes Peppermint for N/V. Failed Zofran. C/o severe early satiety, lack of appetite and stomach fullness. Diet: snacks as tolerated. Failed Reglan and Buspar. Patient is interested in learning more about EMPTIES Trial: Yes Patient is a candidate for EMPTIES Trial: Yes Gastrointestinal Symptoms Reflux/heartburn: Yes was on pantoprazole - no longer taking anything Abdominal pain/discomfort: Yes intermittent with certain foods. Weight loss: some weight loss just unsure how much. Do you have less than 3 bowel movements per week? Yes sometimes Diarrhea: yes alternates Constipation: yes can go up to 3 days; states laxatives don't work. Failed Miralax Malnutrition: unsure Gastroparesis Cardinal Symptom Index (CGSI) 1. Nausea: 5 2. Retchin 3. Vomitin 4. Stomach fullness: 4 5. Not able to finish a normal-sized meal: 5 6. Feeling excessively full after meals: 5 7. Loss of appetite: 5 8. Bloating (feeling like you need to loosen your clothes): 5 9. Stomach or belly visibly larger: 5 CGSI Score: 4.36 Scale (0-none; 1-very mild; 2-mild; 3-moderate; 4-severe; 5-very severe) MEDICATION HISTORY Promotility Drugs - Reglan (Metoclopramide): failed - Gimoti (Metoclopramide nasal): No - Motilium (Domperidone): No - Erythromycin (E-mycin): No - Propulsid (Cisapride)_: No Other - Tricyclic Antidepressants (nortriptyline - Pamelor; amitriptyline - Elavil): No - Buspirone (Buspar): Yes took in the past - Mirtazapin (Remeron): No Anti-Nausea Medications - Compazine (Prochlorperazine): No - Phenergan (Promethazine): failed - Benadryl (Diphenhydramine): No - Zofran (Ondansetron): failed - Scopace (Scopolamine Patch): No - Granisetron (Kytril or Sancuso): No - Tigan (Trimethobenzamide)_ : No Constipation Medications - Bulking Agents (Metamucil,Citrucel, Fibercon): yes - Osmotic Laxatives (MOM, Polyethylene glycol (PEG), lactulose, sorbitol,MiraLax, Chronulal, Cephulac,Xylitol): failed Miralax - Stimulant Laxatives (Ex-Lax, Senokot,Correctol, Dulcolax): failed Dulcolax - Stool Softeners (Colace): failed - Chloride Channel Activator (Amitiza): No - Linzess: No - Trulance: No - Motegrity: No Pain Medications - Does the patient see a paint spray tender for chronic abdominal pain?yes for neck - Is the patient taking narcotic pain medication for chronic abdominal pain? No - Narcotic Medications: (Tramadol, Fentanyl, codeine, hydrocodone, Hydromorphone, methadone, morphine, Oxycodone) No Drug use - History or current drug use (Marijuana, Cocaine, Heroine, etc...) No Eating Disorders - Does the patient have a history of eating disorders No Psychiatric Disorders - Does the patient have a history of psychiatric disorders including PTSD: Yes If yes, please explain: PTSD, depression and anxiety Nutrition - Has the patient met with a director market research for diet recommendations with Gastroparesis? No - Jejunostomy (J-tube): _No - Gastrostomy (G-tube): No - Gastro-Jejunostomy (GJ-tube): _No - Nasojejunal (NJ-tube): _No - Nasogastric (NG-tube): _No - TPN (IV): _No - IV home hydration (IV): _No Medical Records - Has the patient had a smart capsule study completed? No - Does the patient have a history of any foregut surgery (vagotomy, hiatal hernia repair/CARLOTTA Fundoplication, Heller Myotomy, gastrectomy, gastric bypass)?No If surgery, recent UGI? No - EGD: Yes - Botox Injections: No Patient Name Naila Beltran Age [age] year old Gastroparesis Consult Test Date Completed Results Labs EGD 10/11/2019 [facility] Impression: - mild fundal gastritis, biopsies obtained. Colonoscopy 10/11/2019 [facility] Impression: - normal colonoscopy to terminal ileum, random co (more content not included)... Normal [facility] Office Visit (GASTSP) NAILA BELTRAN ([id number]) 1970 F Date Time Provider Department 08/02/23 8:30 AM ELECTROGASTROGRAM [facility] During your visit today, we recorded the following information about you: Celeste Vásquez LPN 08/02/2023 4:12 PM Signed ELECTROGASTROGRAPY W/ TEST Operation / Procedure performed 500 cc water intake Referring Provider: VERONICA QUILES [[id number]] Allergies As of Date: 08/02/2023 Noted Allergy Reaction ASPIRIN 16 - Unknown HEPARIN ANALOGUES 12/22/2011 16 - Unknown KEFLEX (CEPHALEXIN) 02/06/2010 4 - Hives PENICILLIN G 02/06/2010 4 - Hives Date Reviewed: 08/02/2023 Reviewed by: Martine Bowling MD - Fully Assessed Reason for Visit: electrogastrogram [Other] Cmt: EGG-500 cc water intake Primary Visit Diagnosis:Gastropare sis [K31.84] Prescriptions as of 08/02/2023 - lubiprostone (AMITIZA) 8 mcg capsule Take 1 capsule by mouth two times a day with meals. - ELIQUIS 2.5 mg tab(s) Take 1 tablet by mouth two times a day. - iv contrast (will be provided with radiology [...] in the CT contrast administration guidelines link. - enteric contrast (will be provided with radiology test) For CT ABD/PEL W IVCON Routine order Administer, As Directed One Time Only, via Oral, Rectal, both Oral and Rectal, Enteric Tube, Stoma or Indwelling Catheter, Enteric Contrast as designated per enteric contrast guidelines - glyBURIDE (DIABETA) 5 mg tablet take 2 tablets by mouth twice a day with meals - docusate sodium (COLACE) 100 mg capsule Take 100 mg by mouth as needed. - cetirizine (ZYRTEC) 10 mg tablet Take 10 mg by mouth. - Fluticasone Furoate 27.5 mcg/actuation nasal spray fluticasone Fluticasone Furoate Active 1 SPRAY Intranasal Daily June 13, 2017 7:29am 06-13-2017 [facility] (13937) - sitaGLIPtin-metFORMI N (JANUMET) 50-500 mg per tablet Take 1 tablet by mouth twice daily with meals. - aspirin 81 mg chewable tablet q 24 HR. - albuterol HFA (PROVENTIL HFA, VENTOLIN HFA) 90 mcg/actuation inhaler Ventolin HFA 90 mcg/actuation aerosol inhaler - levETIRAcetam XR (KEPPRA XR) 500 mg 24 hr tablet Take 500 mg by mouth twice daily. - metoprolol tartrate, short acting, (LOPRESSOR) 25 mg tablet twice daily. - atorvastatin (LIPITOR) 40 mg tablet Take 40 mg by mouth once daily. - Comp.Stocking,Thigh, Long,X-Lrg misc Wear stocking daily - pregabalin (LYRICA) 150 mg capsule Take 150 mg by mouth twice daily. - Multivitamins ORAL Chew None Entered Problem List As Of Date 08/02/2023 Noted Resolved Hypercoagulable state [D68.59] 01/16/2013 Vascular disease [I99.9] 11/15/2017 Anticoagulated [Z79.01] 02/06/2020 HLD (hyperlipidemia) [E78.5] 02/06/2020 Coronary artery disease of [place] artery of brit*02/06/2020 Type 2 diabetes mellitus without complication, *02/06/2020 GERD (gastroesophageal reflux disease) [K21.9] 02/06/2020 Personal history of DVT (deep vein thrombosis) *02/06/2020 Fatty liver [K76.0] 02/06/2020 Morbid obesity (HCC) [E66.01] 02/06/2020 Seizures (HCC) [R56.9] SOB (shortness of breath) [R06.02] PVD (peripheral vascular disease) (HCC) [I73.9] 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] History of COVID-19 [Z86.16] 03/04/2020 Obesity, Class III, BMI >= 40 [E66.01] 03/15/2020 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 CREATINE KINASE/CKon 06-05-2 024 CK [Catalytic activity/Vol] 25 U/L Low 42 - 196 U/L [facility] CRP SerPl-mCncon 08-02-2023 CRP [Mass/Vol] 1.2 mg/dL High <0.9 [facility] Comment on above: Order Comment: Speci men Type: BLOOD SPECIMENOrdering Facility: [facility] Address: [address] [place] [address] Performed By: #### 2 157-6, 1987-06 ####[facility] LABORATORYCLIA [id number] [place] [id number] [facility] CYTOKINE PANEL 13, SERUMon 0 08-02-2023 INTERFERON GAMMA <4.2 Normal <=4.2 [facility] Comment on above: Order Comment: Speci men Type: BLOOD SPECIMENOrdering Facility: [facility] Address: [address] [place] [address] Performed By: #### PATRICK SO VOLTCA ####[facility]ORATORIESCLIA [id number] [place] [address] INTERLEUKIN 1 BETA <6.5 Normal <=6.7 [facility] Comment on above: Order Comment: Speci men Type: BLOOD SPECIMENOrdering Facility: [facility] Address: [address] [place] [address] Performed By: #### PATRICK SO VOLTCA ####[facility] LABORATORIESCLIA [id number] [place] [address] INTERLEUKIN 10 5.9 pg/mL High <=2.8 [facility] Comment on above: Order Comment: Speci men Type: BLOOD SPECIMENOrdering Facility: [facility] Address: [address] [place] [address] Performed By: #### Saeid PATEL ESTGEN VOLTCA ####[facility] LABORATORIESCLIA [id number] [place] [address] INTERLEUKIN 12 <1.9 Normal <=1.9 [facility] Comment on above: Order Comment: Speci men Type: BLOOD SPECIMENOrdering Facility: [facility] Address: [address] [place] [address] Performed By: #### C YTOKP, ESTGEN, VOLTCA ####[facility] LABORATORIESCLIA [id number] [place] [address] INTERLEUKIN 13 <1.7 Normal <=2.3 [facility] Comment on above: Order Comment: Speci men Type: BLOOD SPECIMENOrdering Facility: [facility] Address: [facility] [place] [address] Performed By: #### C YTANCAP, ESTGEN, VOLTCA ####[facility] LABORATORIESCLIA [id number] [place] [address] INTERLEUKIN 17 <1.4 Normal <=1.4 [facility] Comment on above: Order Comment: Speci men Type: BLOOD SPECIMENOrdering Facility: [facility] Address: [address] [place] [address] Performed By: #### C YTANCAP, ESTGEN, VOLTCA ####[facility] LABORATORIESCLIA [id number] [place] [address] INTERLEUKIN 2 <2.1 Normal <=2.1 [facility] Comment on above: Order Comment: Speci men Type: BLOOD SPECIMENOrdering Facility: [facility] Address: [address] [place] [address] Performed By: #### C YTANCAP, ESTGEN, VOLTCA ####[facility]ORATORIESCLIA [id number] [place] [address] INTERLEUKIN 4 (INT4) <2.2 Normal <=2.2 [facility] Comment on above: Order Comment: Speci men Type: BLOOD SPECIMENOrdering Facility: [facility] Address: [address] [place] [address] Performed By: #### C YTANCAP, ESTGEN, VOLTCA ####[facility]ORATORIESCLIA [id number] [place] [address] INTERLEUKIN 5 <2.1 Normal <=2.1 [facility] Comment on above: Order Comment: Speci men Type: BLOOD SPECIMENOrdering Facility: [facility] Address: [address] [place] [address] Performed By: #### C YTANCAP ESTGEN, VOLTCA ####[facility]ORATORIESCLIA [id number] [place] [address] INTERLEUKIN 6 5.7 pg/mL High <=2.0 [facility] Comment on above: Order Comment: Speci men Type: BLOOD SPECIMENOrdering Facility: [facility] Address: [address] [place] [address] Performed By: #### Saeid PATEL ESTGEN, VOLTCA ####[facility] LABORATORIESCLIA [id number] [place] [address] INTERLEUKIN 8 <3.0 Normal <=3.0 [facility] Comment on above: Order Comment: Speci men Type: BLOOD SPECIMENOrdering Facility: [facility] Address: [address] [place] [address] Performed By: #### C JORGE ESTGEN, VOLTCA ####[facility] LABORATORIESCLIA [id number] [place] [address] INTERLEUKIN-2 RECEPTOR 732.8 pg/mL Normal 175.3-858.2 [facility] Comment on above: Order Comment: Speci men Type: BLOOD SPECIMENOrdering Facility: [facility] Address: [address] [place] [address] Performed By: #### C JORGE EST, VOLTCA ####[facility]ORATORIESCLIA [id number] [place] [address] TUMOR NECROSIS FACTOR - ALPHA <1.7 Normal <=7.2 [facility] Comment on above: Order Comment: Speci men Type: BLOOD SPECIMENOrdering Facility: [facility] Address: [address] [place] [address] Result Comment: INTE RPRETIVE INFORMATION: Cytokines Results are used to understand the pathophysiology of immune, infectious, or inflammatory disorders, or may be used for research purposes. This test was developed and its performance characteristics determined by [facility]. It has not been cleared or approved by the [place] Food and Drug Administration. This test was performed in a CLIA certified laboratory and is intended for clinical purposes. Performed By: [facility] [address] [place] [id number] Communications Systems Engineer: Molina Ureña MD, PhD [facility] Number: [id number] Performed By: #### PATRICK SO VOLTCA ####[facility]ORATORIESCLIA [id number] [place] [address] ESR Westergren method (Bld) [Velocity]on 08-02-2023 ESR (Bld) [Velocity] 38 mm/h High [facility] Interpretation and review of laboratory results Abnormal [facility] ESR (Bld) [Velocity] 38 mm/h High 0-20 [facility] Comment on above: Order Comment: Speci men Type: BLOOD SPECIMENOrdering Facility: [facility] Address: [address] [place] [address] Performed By: #### 4 537-7 ####[facility] LABCLIA [id number] [place] [address] [place] ESTROGEN FRACTION BLon 08-01 ESTRADIOL 6.6 pg/mL Normal [facility] Comment on above: Order Comment: Speci men Type: BLOOD SPECIMENOrdering Facility: [facility] Address: [address] [place] [address] Result Comment: REFE RENCE INTERVAL: Estradiol by Mucking Machine Operator For a complete set of all established reference intervals, refer to [employer]/Tests/Pub/[id number]. This test was developed and its performance characteristics determined by [facility]. It has not been cleared or approved by the US Food and Drug Administration. This test was performed in a CLIA certified laboratory and is intended for clinical purposes. Performed By: #### PATRICK SO VOLTCA ####[facility]ORATORIESCLIA [id number] [place] [address] ESTROGENS TOTAL 29.8 pg/mL Normal [facility] Comment on above: Order Comment: Speci men Type: BLOOD SPECIMENOrdering Facility: [facility] Address: [address] [place] [address] Result Comment: Refe rence interval of estrogens (pg/mL) Estrone Estradiol Total Estrogens Early follicular <150.0 30.0-100.0 30.0-250.0 Late follicular 100.0-250.0 100.0-400.0 200.0-650.0 Luteal <200.0 50.0-150.0 50.0-350.0 Post-menopausal 3.0-32.0 2.0-21.0 5.0-52.0 REFERENCE INTERVAL: Estrogens Total Calculation For a complete set of all established reference intervals, refer to [employer]/Tests/Pub/[id number]. Performed By: [facility] [address] [id number] Communications Systems Engineer: Molina Ureña MD, PhD [place] Number: [id number] Performed By: #### C PATRICK PATEL VOLTCA ####HandleCLIA [id number] [place] [address] ESTRONE 23.2 pg/mL Normal [facility] Comment on above: Order Comment: Speci men Type: BLOOD SPECIMENOrdering Facility: [facility] Address: [address] [place] [address] Result Comment: INTERPRETIVE INFORMATION: Estrone by Mucking Machine Operator For a complete set of all established reference intervals, refer to [employer]/Tests/Pub/[id number]. This test was developed and its performance characteristics determined by [facility]. It has not been cleared or approved by the US Food and Drug Administration. This test was performed in a CLIA certified laboratory and is intended for clinical purposes. Performed By: #### PATRICK SO VOLTCA ####HandleCLIA [id number] [place] [id number] Ab Ser-aCncon 08-02-19 24 Glutamate decarboxylase 65 Ab Qn (S) <5.0 Normal <=5.0 [facility] Comment on above: Order Comment: Speci men Type: BLOOD SPECIMENOrdering Facility: [facility] Address: [address] [place] [address] Result Comment: Anti -glutamic acid decarboxylase antibody (GAD65) test usually in conjunction with another test such as IA-2 antibody is used as an aid in establishing the autoimmune nature of previously-diagnosed type I diabetes mellitus or in predicting of progression to type I diabetes mellitus in patients with certain autoimmune diseases including autoimmune gastritis among others. It is also used as an aid in diagnosis of stiff person syndrome and certain autoimmune nervous system diseases. Clinical correlation is required. Performed By: #### A CHRAB, 61546-8 ####[facility] LABCLIA [id number] [place] [address] [place] Glutamate decarboxylase 65 A b Qn (S)on 08-02-2023 GLUTAMIC ACID DECARBOXYLAS AB QUALITATIVE Negative Normal Negative [facility] Comment on above: Order Comment: Speci men Type: BLOOD SPECIMENOrdering Facility: [facility] Address: [address] [place] [address] Performed By: #### A CHRAB, 55865-1 ####[facility] LABCLIA [id number] [place] [address] [place] IMMUNOGLOBULIN Aon 4 IgA [Mass/Vol] 271 mg/dL 70 - 400 mg/dL [facility] IMMUNOGLOBULIN Chad 4 IgG [Mass/Vol] 1849 mg/dL High 700 - 1600 mg/dL [facility] IMMUNOGLOBULIN Mon 4 IgM [Mass/Vol] 48 mg/dL 40 - 230 mg/dL [facility] IgA SerPl-mCncon 08-02-2023 IgA [Mass/Vol] 271 mg/dL Normal 70-400 [facility] Comment on above: Order Comment: Speci men Type: BLOOD SPECIMEN [facility] Address: [address] [place] [address] Performed By: #### 2 472-9, 2464-3, 8 #### [facility] CLIA [id number] [address] [place] [address] [place] IgG SerPl-mCncon 08-02-2023 IgG [Mass/Vol] 1849 mg/dL High 700-1600 [facility] Comment on above: Order Comment: Speci men Type: BLOOD SPECIMENOrdering Facility: [facility] Address: [address] [place] [address] Performed By: #### 2 472-9, 2465-3, 2457-8 ####[facility] LABCLIA [id number] [place] [id number] [place] IgG [Mass/Vol]on 08-02-2023 Interpretation and review of laboratory results Abnormal [facility] IgM SerPl-mCncon 08-02-2023 IgM [Mass/Vol] 48 mg/dL Normal 40-230 [facility] Comment on above: Order Comment: Speci men Type: BLOOD SPECIMENOrdering Facility: [facility] Address: [address] [place] [address] Performed By: #### 2 472-9, 2465-3, 2458-8 ####[facility] LABCLIA [id number] [place] [address] [place] LACTATE DEHYDROGENASEon LDH [Catalytic activity/Vol] 184 U/L 135 - 214 U/L [facility] LDH SerPl-cCncon 08-02-2023 LDH [Catalytic activity/Vol] 184 U/L Normal 135-214 [facility] Comment on above: Order Comment: Speci men Type: BLOOD SPECIMEN [facility] Address: [address] [place] [address] Performed By: #### 2 532-0 #### [facility] CLIA [id number] [address] [place] [address] [place] LDH [Catalytic activity/Vol] on 08-02-2023 Interpretation and review of laboratory results Normal [facility] No Panel Informationon 08-01 Interpretation and review of laboratory results Normal [facility] Interpretation and review of laboratory results Abnormal [facility] ORGANIC ACIDS UR, QUANT W/CO NSULTon 08-02-2023 2-Hydroxyglutarate/Crea tinine (U) [Molar ratio] 2.2 umol/mmolCr Normal 0.6-17.7 [facility] Comment on above: Order Comment: Speci men Type: URINE SPECIMENOrdering Facility: [facility] Address: [address] [place] [address] Performed By: #### L [id number] ####[facility] LABCLIA [id number] [place] [address] [place] 2-Hydroxyisovalerate/Cr eatinine (U) [Molar ratio] <0.1 Normal 0.0-0.1 [facility] Comment on above: Order Comment: Speci men Type: URINE SPECIMENOrdering Facility: [facility] Address: [address] [place] [address] Performed By: #### L [id number] ####[facility] LABIA [id number] [place] [address] [place] 3-Tndpdv-2-hydroxybutyr ate (C5-OH)/Creatinine (U) [Molar ratio] <0.6 Normal 0.0-1.3 [facility] Comment on above: Order Comment: Speci men Type: URINE SPECIMENOrdering Facility: [facility] Address: [address] [place] [address] Performed By: #### L [id number] ####[facility] LABIA [id number] [place] [address] [place] 2-Methylbutyrylglycine/ Creatinine (U) [Molar ratio] <0.1 Normal 0.0-0.4 [facility] Comment on above: Order Comment: Speci men Type: URINE SPECIMENOrdering Facility: [facility] Address: [address] [place] [address] Performed By: #### L [id number] ####[facility] LABCLIA [id number] [place] [address] [place] 2-Methylcitrate/Creatin ine (U) [Molar ratio] 1.5 umol/mmolCr Normal 1.0-13.9 [facility] Comment on above: Order Comment: Speci men Type: URINE SPECIMENOrdering Facility: [facility] Address: [address] [place] [address] Performed By: #### L [id number] ####[facility] LABCLIA [id number] [place] [address] [place] 2-Oxoadipate/Creatinine (U) [Molar ratio] 1.8 umol/mmolCr Normal 0.0-3.3 [facility] Comment on above: Order Comment: Speci men Type: URINE SPECIMENOrdering Facility: [facility] Address: [address] [place] [address] Performed By: #### L [id number] ####[facility] LABCLIA [id number] [place] [address] [place] 3-Hydroxyglutarate/Crea tinine (U) [Molar ratio] 0.3 umol/mmolCr Normal 0.0-0.7 [facility] Comment on above: Order Comment: Speci men Type: URINE SPECIMENOrdering Facility: [facility] Address: [address] [place] [address] Performed By: #### L [id number] ####[facility] LABCLIA [id number] [place] [address] [place] 3-Hydroxyisovalerate/Cr eatinine (U) [Molar ratio] 1.6 umol/mmolCr Low 2.1-27.3 [facility] Comment on above: Order Comment: Speci men Type: URINE SPECIMENOrdering Facility: [facility] Address: [address] [place] [address] Performed By: #### L [id number] ####[facility] LABCLIA [id number] [place] [address] [place] 3-Methylcrotonylglycine /Creatinine (U) [Molar ratio] <0.3 Normal <0.3 [facility] Comment on above: Order Comment: Speci men Type: URINE SPECIMENOrdering Facility: [facility] Address: [address] [place] [address] Performed By: #### L [id number] ####[facility] LABCLIA [id number] [place] [address] [place] 3-Methylglutaconate/Cre atinine (U) [Molar ratio] 0.4 umol/mmolCr Normal 0.0-2.0 [facility] Comment on above: Order Comment: Speci men Type: URINE SPECIMENOrdering Facility: [facility] Address: [address] [place] [address] Performed By: #### L [id number] ####[facility] LABCLIA [id number] [place] [address] [place] 3-Methylglutarate/Creat inine (U) [Molar ratio] 0.2 umol/mmolCr Normal 0.0-0.6 [facility] Comment on above: Order Comment: Speci men Type: URINE SPECIMENOrdering Facility: [facility] Address: [address] [place] [address] Performed By: #### L [id number] ####[facility] LABCLIA [id number] [place] [address] [place] 4-Hydroxyphenylacetate/ Creatinine (U) [Molar ratio] 14.3 umol/mmolCr Normal 5.7-147.5 [facility] Comment on above: Order Comment: Speci men Type: URINE SPECIMENOrdering Facility: [facility] Address: [address] [place] [address] Performed By: #### L [id number] ####[facility] LABCLIA [id number] [address] [place] 4-Hydroxyphenyllactate/ Creatinine (U) [Molar ratio] 5.3 umol/mmolCr Normal 1.3-23.0 [facility] Comment on above: Order Comment: Speci men Type: URINE SPECIMENOrdering Facility: [facility] Address: [address] [place] [address] Performed By: #### L [id number] ####[facility] LABCLIA [id number] [place] [address] [place] 4-Hydroxyphenylpyruvate /Creatinine (U) [Molar ratio] 0.0 umol/mmolCr Normal <=0.0 [facility] Comment on above: Order Comment: Speci men Type: URINE SPECIMENOrdering Facility: [facility] Address: [address] [place] [address] Performed By: #### L [id number] ####[facility] LABCLIA [id number] [place] [address] [place] 5-Oxoproline/Creatinine (U) [Molar ratio] 1.6 umol/mmolCr Normal 0.4-3.1 [facility] Comment on above: Order Comment: Speci men Type: URINE SPECIMENOrdering Facility: [facility] Address: [address] [place] [address] Performed By: #### L [id number] ####[facility] LABCLIA [id number] [place] [address] [place] Acetoacetate/Creatinine (U) [Molar ratio] <0.9 High 0.0-0.5 [facility] Comment on above: Order Comment: Speci men Type: URINE SPECIMENOrdering Facility: [facility] Address: [address] [place] [address] Performed By: #### L [id number] ####[facility] LABCLIA [id number] [place] [address] [place] Aconitate/Creatinine (U) [Molar ratio] 17.5 umol/mmolCr Normal 8.5-109.6 [facility] Comment on above: Order Comment: Speci men Type: URINE SPECIMENOrdering Facility: [facility] Address: [address] [place] [address] Performed By: #### L [id number] ####[facility] LABCLIA [id number] [place] [address] [place] Adipate/Creatinine (U) [Molar ratio] 1.0 umol/mmolCr Normal 0.3-9.2 [facility] Comment on above: Order Comment: Speci men Type: URINE SPECIMENOrdering Facility: [facility] Address: [address] [place] [address] Performed By: #### L [id number] ####[facility] LABCLIA [id number] [place] [address] [place] Alpha hydroxybutyrate/Creatin ine (U) [Molar ratio] <1.0 Normal 0.0-2.7 [facility] Comment on above: Order Comment: Speci men Type: URINE SPECIMENOrdering Facility: [facility] Address: [address] [place] [address] Performed By: #### L [id number] ####[facility] LABIA [id number] [place] [address] [place] Alpha ketoglutarate/Creatinin e (U) [Molar ratio] 2.4 umol/mmolCr Normal 0.2-42.7 [facility] Comment on above: Order Comment: Speci men Type: URINE SPECIMENOrdering Facility: [facility] Address: [address] [place] [address] Performed By: #### L [id number] ####[facility] LABIA [id number] [place] [address] [place] Benzoate/Creatinine (U) [Molar ratio] <12.2 Normal 0.0-14.6 [facility] Comment on above: Order Comment: Speci men Type: URINE SPECIMENOrdering Facility: [facility] Address: [address] [place] [address] Performed By: #### L [id number] ####[facility] LABIA [id number] [place] [address] [place] Beta hydroxybutyrate/Creatin ine (U) [Molar ratio] <1.6 Normal 0.1-2.6 [facility] Comment on above: Order Comment: Speci men Type: URINE SPECIMENOrdering Facility: [facility] Address: [address] [place] [address] Performed By: #### L [id number] ####[facility] LABCLIA [id number] [place] [address] [place] Butyrylglycine/Creatini ne (U) [Molar ratio] 0.0 umol/mmolCr Normal 0.0-0.7 [facility] Comment on above: Order Comment: Speci men Type: URINE SPECIMENOrdering Facility: [facility] Address: [address] [place] [address] Performed By: #### L [id number] ####[facility] LABCLIA [id number] [place] [address] [place] Creatinine (U) [Mass/Vol] 219.5 mg/dL Normal 42.2-237.9 [facility] Comment on above: Order Comment: Speci men Type: URINE SPECIMENOrdering Facility: [facility] Address: [address] [place] [address] Performed By: #### L [id number] ####[facility] LABCLIA [id number] [place] [address] [place] Ethylmalonate/Creatinin e (U) [Molar ratio] 0.3 umol/mmolCr Low 0.5-6.2 [facility] Comment on above: Order Comment: Speci men Type: URINE SPECIMENOrdering Facility: [facility] Address: [address] [place] [address] Performed By: #### L [id number] ####[facility] LABCLIA [id number] [place] [address] [place] Fumarate/Creatinine (U) [Molar ratio] 1.7 umol/mmolCr Normal 0.3-2.6 [facility] Comment on above: Order Comment: Speci men Type: URINE SPECIMENOrdering Facility: [facility] Address: [address] [place] [address] Performed By: #### L [id number] ####[facility] LABCLIA [id number] [place] [address] [place] Glutarate/Creatinine (U) [Molar ratio] 0.2 umol/mmolCr Normal 0.0-1.4 [facility] Comment on above: Order Comment: Speci men Type: URINE SPECIMENOrdering Facility: [facility] Address: [address] [place] [address] Performed By: #### L [id number] ####[facility] LABCLIA [id number] [place] [address] [place] Hexanoylglycine/Creatin ine (U) [Molar ratio] <0.1 Normal 0.0-0.1 [facility] Comment on above: Order Comment: Speci men Type: URINE SPECIMENOrdering Facility: [facility] Address: [address] [place] [address] Performed By: #### L [id number] ####[facility] LABCLIA [id number] [place] [address] [place] Isobutyrylglycine/Creat inine (U) [Molar ratio] 0.1 umol/mmolCr Normal 0.0-1.2 [facility] Comment on above: Order Comment: Speci men Type: URINE SPECIMENOrdering Facility: [facility] Address: [address] [place] [address] Performed By: #### L [id number] ####[facility] LABCLIA [id number] [place] [address] [place] Isocitrate/Creatinine (U) [Molar ratio] 44.8 umol/mmolCr Normal 9.1-271.9 [facility] Comment on above: Order Comment: Speci men Type: URINE SPECIMENOrdering Facility: [facility] Address: [address] [place] [address] Performed By: #### L [id number] ####[facility] LABCLIA [id number] [id number] [address] [place] Lactate/Creatinine (U) [Molar ratio] 20.8 umol/mmolCr Normal 2.9-47.2 [facility] Comment on above: Order Comment: Speci men Type: URINE SPECIMENOrdering Facility: [facility] Address: [address] [place] [address] Performed By: #### L [id number] ####[facility] LABCLIA [id number] [place] [address] [place] Malate/Creatinine (U) [Molar ratio] <0.1 Normal 0.0-1.1 [facility] Comment on above: Order Comment: Speci men Type: URINE SPECIMENOrdering Facility: [facility] Address: [address] [place] [address] Performed By: #### L [id number] ####[facility] LABCLIA [id number] [address] [place] Malonate/Creatinine (U) [Molar ratio] 0.0 umol/mmolCr Normal 0.0-0.1 [facility] Comment on above: Order Comment: Speci men Type: URINE SPECIMENOrdering Facility: [facility] Address: [address] [place] [address] Performed By: #### L [id number] ####[facility] LABCLIA [id number] [place] [address] [place] Methylmalonate/Creatini ne (U) [Molar ratio] <0.4 Normal 0.0-0.6 [facility] Comment on above: Order Comment: Speci men Type: URINE SPECIMENOrdering Facility: [facility] Address: [address] [place] [address] Performed By: #### L [id number] ####[facility] LABCLIA [id number] [place] [address] [place] Methylsuccinate/Creatin ine (U) [Molar ratio] 0.3 umol/mmolCr Normal 0.0-1.4 [facility] Comment on above: Order Comment: Speci men Type: URINE SPECIMENOrdering Facility: [facility] Address: [address] [place] [address] Performed By: #### L [id number] ####[facility] LABCLIA [id number] [place] [address] [place] N-acetylaspartate/Creat inine (U) [Molar ratio] 2.0 umol/mmolCr Normal 0.1-8.9 [facility] Comment on above: Order Comment: Speci men Type: URINE SPECIMENOrdering Facility: [facility] Address: [address] [place] [address] Performed By: #### L [id number] ####[facility] LABCLIA [id number] [place] [address] [place] N-acetyltyrosine/Creati nine (U) [Molar ratio] <0.2 Normal 0.0-1.2 [facility] Comment on above: Order Comment: Speci men Type: URINE SPECIMENOrdering Facility: [facility] Address: [address] [place] [address] Performed By: #### L [id number] ####[facility] LABCLIA [id number] [place] [address] [place] Oxalate/Creatinine (U) [Molar ratio] 1.0 umol/mmolCr Normal 0.7-12.4 [facility] Comment on above: Order Comment: Speci men Type: URINE SPECIMENOrdering Facility: [facility] Address: [address] [place] [address] Performed By: #### L [id number] ####[facility] LABCLIA [id number] [place] [address] [place] Pyruvate/Creatinine (U) [Molar ratio] 0.5 umol/mmolCr Normal 0.1-2.6 [facility] Comment on above: Order Comment: Speci men Type: URINE SPECIMENOrdering Facility: [facility] Address: [address] [place] [address] Performed By: #### L [id number] ####[facility] LABCLIA [id number] [place] [address] [place] Sebacate (C8)/Creatinine (U) [Molar ratio] <3.4 High 0.0-0.3 [facility] Comment on above: Order Comment: Speci men Type: URINE SPECIMENOrdering Facility: [facility] Address: [address] [place] [address] Performed By: #### L [id number] ####[facility] LABIA [id number] [place] [address] [place] Suberate/Creatinine (U) [Molar ratio] 1.1 umol/mmolCr Normal 0.0-7.4 [facility] Comment on above: Order Comment: Speci men Type: URINE SPECIMENOrdering Facility: [facility] Address: [address] [place] [address] Performed By: #### L [id number] ####[facility] LABIA [id number] [address] [place] Suberylglycine/Creatini ne (U) [Molar ratio] 0.0 umol/mmolCr Normal <=0.0 [facility] Comment on above: Order Comment: Speci men Type: URINE SPECIMENOrdering Facility: [facility] Address: [address] [place] [address] Performed By: #### L [id number] ####[facility] LABIA [id number] [place] [address] [place] Succinate/Creatinine (U) [Molar ratio] 1.0 umol/mmolCr Normal 0.3-27.4 [facility] Comment on above: Order Comment: Speci men Type: URINE SPECIMENOrdering Facility: [facility] Address: [address] [place] [address] Performed By: #### L [id number] ####[facility] LABCLIA [id number] [address] [place] Succinylacetone/Creatin ine (U) [Molar ratio] <0.4 Normal <0.4 [facility] Comment on above: Order Comment: Speci men Type: URINE SPECIMENOrdering Facility: [facility] Address: [address] [place] [address] Performed By: #### L [id number] ####[facility] LABIA [id number] [address] [place] [facility] Comment on above: Order Comment: Speci men Type: URINE SPECIMENOrdering Facility: [facility] Address: [address] [place] [address] Result Comment: This urine organic acid analysis shows no significant abnormalities. NOTE: The biochemical expression of urinary organic acids in the genetic organic acidurias can be dependent on the nutritional status of the subject, the underlying genetic abnormality that he/she may have, concurrent illnesses and other factors. This is also true for other disorders for which urinary organic acid analysis is sometimes a diagnostic tool such as disorders of mitochondrial oxidative phosphorylation, disorders of mitochondrial fatty acid beta-oxidation, and some nutritional deficiencies. Consequently and unless otherwise stated, a normal or non-diagnostic test result on urinary organic acid analysis does not always rule-out the possibility of the types of disorders noted above. This test was developed and its performance characteristics determined by the [facility]. It has not been cleared or approved by the [place] Food and Drug Administration. The FDA had determined that such clearance or approval is not necessary. Performed By: #### L [id number] ####[facility] LABCLIA [id number] [address] OF [facility] Reviewed by Kevin Hardin MD, Ph.D ([id number]) [facility] Comment on above: Order Comment: Speci men Type: URINE SPECIMENOrdering Facility: [facility] Address: [address] [place] [address] Performed By: #### L [id number] ####[facility] LABIA [id number] [place] [id number] [place] Uracil/Creatinine (U) [Molar ratio] 0.9 umol/mmolCr Normal 0.0-5.1 [facility] Comment on above: Order Comment: Speci men Type: URINE SPECIMENOrdering Facility: [facility] Address: [address] [place] [address] Performed By: #### L [id number] ####[facility] LABIA [id number] [address] [place] PYRUVATE+LACTATE BLon 2023 Lactate [Moles/Vol] 0.9 mmol/L Normal 0.5-2.2 [facility] Comment on above: Order Comment: Speci men Type: BLOOD SPECIMENOrdering Facility: [facility] Address: [address] [place] [address] Result Comment: This test was developed and its performance characteristics determined by [facility]'s [facility] [place] ([facility] It has not been cleared or approved by the FDA. -[facility] is regulated under CLIA as qualified to perform high-complexity testing. This test is used for clinical purposes. It should not be regarded as investigational or for research. Performed By: #### L ACPYR ####[facility] [id number] [place] [address] [place] Pyruvate (Bld) [Moles/Vol] 0.02 mmol/L Low 0.03-0.10 [facility] Comment on above: Order Comment: Speci men Type: BLOOD SPECIMENOrdering Facility: [facility] Address: [address] [place] [address] Result Comment: Spec imen was not treated within the desired 30 minute time. Pyruvate results may be falsely decreased and lactate result may be falsely elevated. This test was developed and its performance characteristics determined by [facility]'s [facility] Pathology and Laboratory Medicine [place] ([facility]). It has not been cleared or approved by the FDA. [facility] is regulated under CLIA as qualified to perform high-complexity testing. This test is used for clinical purposes. It should not be regarded as investigational or for research. Performed By: #### L ACPYR ####[facility] LABCLIA [id number] [facility] [id number] STATES OF [facility] VOLTAGE GATED CA IGGon 08-01 P/Q-TYPE CALCIUM CHANNEL ANTIBODY 0.0 pmol/L Normal 0.0-24.5 [facility] Comment on above: Order Comment: Speci men Type: BLOOD SPECIMENOrdering Facility: [facility] Address: [address] [place] [address] Result Comment: INTE RPRETIVE INFORMATION: P/Q-Type Calcium Channel Antibody 0.0 to 24.5 pmol/L ............. Negative 24.6 to 45.6 pmol/L ............ Indeterminate 45.7 pmol/L or greater.......... Positive This test was developed and its performance characteristics determined by [facility]. It has not been cleared or approved by the US Food and Drug Administration. This test was performed in a CLIA certified laboratory and is intended for clinical purposes. Performed By: [facility] [address] [place] [address] Communications Systems Engineer: Molina Ureña MD, PhD CLIA Number: [id number] Performed By: #### C PATRICK PATEL VOLTCA ####[facility] [id number] [place] [id number] VOLTAGE-GATED POTASSIUM MOYER ABon 08-02-2023 VOLTAGE-GATED POTASSIUM CHANNEL AB, SER 12 pmol/L Normal 0-31 [facility] Comment on above: Order Comment: Speci men Type: BLOOD SPECIMENOrdering Facility: [facility] Address: [address] [place] [address] Result Comment: INTE RPRETIVE INFORMATION: Voltage-Gated Potassium Channel (VGKC) Antibody, Serum Negative ....... 31 pmol/L or less Indeterminate... 32 - 87 pmol/L Positive ....... 88 pmol/L or greater Voltage-Gated Potassium Channel (VGKC) antibodies are associated with neuromuscular weakness as found in neuromyotonia (also known as Issacs syndrome) and Morvan syndrome. VGKC antibodies are also associated with paraneoplastic neurological syndromes and limbic encephalitis; however, VGKC antibody-associated limbic encephalitis may be associated with antibodies to leucine-rich, glioma-inactivated 1 protein (LGI1) or contactin-associated protein-2 (CASPR2) instead of potassium channel antigens. A substantial number of VGKC-antibody positive cases are negative for LGI1 and CASPR2 IgG autoantibodies, not all VGKC complex antigens are known. The clinical significance of this test can only be determined in conjunction with the patient's clinical history and related laboratory testing. This test was developed and its performance characteristics determined by [facility]. It has not been cleared or approved by the US Food and Drug Administration. This test was performed in a CLIA certified laboratory and is intended for clinical purposes. Performed By: [facility] [address] [place] [address] Communications Systems Engineer: Molina Ureña MD, PhD CLIA Number: [id number] Performed By: #### V GKCAB ####[facility] HOSPITALIA [id number] [place] [address] [facility] 07-25-2023 [facility] Telephone ([facility]) NAILA BELTRAN ([id number]) 1970 F Date Time Provider Department 07/25/23 VERONICA QUILES [facility] During your visit today, we recorded the following information about you: Vu Belle RN 07/25/2023 4:18 PM Signed SPECIALTY CARE COORDINATION CHART REVIEW Contacted patient regarding upcoming appointment in the [facility]astroparesis Clinic. No answer. Message and call back number provided. Patient identified for Care Coordination from: gastroparesis diagnosis Last PCP office visit: Visit date not found Next OV: 08/02/2023 CHRONIC DX: Gastroparesis Records Reviewed records and summarized for upcoming appointment in the gastroparesis clinic. CARE COORDINATION OUTREACH PLAN: Contacted patient regarding upcoming appointment in the Gastroparesis Clinic. No answer. Message and call back number provided. Vu Belle RN July 25, 2023 Allergies As of Date: 07/25/2023 Noted Allergy Reaction ASPIRIN 16 - Unknown HEPARIN ANALOGUES 12/22/2011 16 - Unknown KEFLEX (CEPHALEXIN) 02/06/2010 4 - Hives PENICILLIN G 02/06/2010 4 - Hives Date Reviewed: 06/13/2023 Reviewed by: Gardenia Gupta PA-C - Fully Assessed Reason for Visit: Care Coordination [3491] Cmt: Gastroparesis clinic: new patient call; chart review Prescriptions as of 07/25/2023 - ELIQUIS 2.5 mg tab(s) Take 1 tablet by mouth two times a day. - hyoscyamine SR (LEVBID) 0.375 mg 12 hr tablet Take 1 tablet by mouth twice daily. - iv contrast (will be provided with radiology [...] in the CT contrast administration guidelines link. - enteric contrast (will be provided with radiology test) For CT ABD/PEL W IVCON Routine order Administer, As Directed One Time Only, via Oral, Rectal, both Oral and Rectal, Enteric Tube, Stoma or Indwelling Catheter, Enteric Contrast as designated per enteric contrast guidelines - lansoprazole orally disintegrating (PREVACID) 30 mg disintegrating tablet Take 1 tablet by mouth once daily. - glyBURIDE (DIABETA) 5 mg tablet take 2 tablets by mouth twice a day with meals - docusate sodium (COLACE) 100 mg capsule Take 100 mg by mouth as needed. - cetirizine (ZYRTEC) 10 mg tablet Take 10 mg by mouth. - Fluticasone Furoate 27.5 mcg/actuation nasal spray fluticasone Fluticasone Furoate Active 1 SPRAY Intranasal Daily June 13, 2017 7:29am 06-13-2017 [facility] ([address]) - sitaGLIPtin-metFORMI N (JANUMET) 50-500 mg per tablet Take 1 tablet by mouth twice daily with meals. - aspirin 81 mg chewable tablet q 24 HR. - albuterol HFA (PROVENTIL HFA, VENTOLIN HFA) 90 mcg/actuation inhaler Ventolin HFA 90 mcg/actuation aerosol inhaler - levETIRAcetam XR (KEPPRA XR) 500 mg 24 hr tablet Take 500 mg by mouth twice daily. - busPIRone HCl 30 mg tablet take 1/3 tablet by mouth three times a day - metoprolol tartrate, short acting, (LOPRESSOR) 25 mg tablet twice daily. - atorvastatin (LIPITOR) 40 mg tablet Take 40 mg by mouth once daily. - Comp.Stocking,Thigh, Long,X-Lrg misc Wear stocking daily - pregabalin (LYRICA) 150 mg capsule Take 150 mg by mouth twice daily. - Multivitamins ORAL Chew None Entered Problem List As Of Date 07/25/2023 Noted Resolved Hypercoagulable state [D68.59] 01/16/2013 Vascular disease [I99.9] 11/15/2017 Anticoagulated [Z79.01] 02/06/2020 HLD (hyperlipidemia) [E78.5] 02/06/2020 Coronary artery disease of [place] artery of [place]*02/06/2020 Type 2 diabetes mellitus without complication, *02/06/2020 GERD (gastroesophageal reflux disease) [K21.9] 02/06/2020 Personal history of DVT (deep vein thrombosis) *02/06/2020 Fatty liver [K76.0] 02/06/2020 Morbid obesity (HCC) [E66.01] 02/06/2020 Seizures (HCC) [R56.9] SOB (shortness of breath) [R06.02] PVD (peripheral vascular disease) (HCC) [I73.9] 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] History of COVID-19 [Z86.16] 03/04/2020 Obesity, Class III, BMI >= 40 [E66.01] 03/15/2020 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 CBC W Auto Differential pane l (Bld)on 06-13-2023 Basophils (Bld) [#/Vol] 0.05 10*3/uL Normal <0.[address] [facility] Comment on above: Order Comment: Speci men Type: BLOOD SPECIMENOrdering Facility: [facility] Address: [address] [place] [address] Performed By: #### 5 7021-8 ####[facility] LABCLIA [id number] [place] [address] Basophils/100 WBC (Bld) 0.5 % Normal [facility] Comment on above: Order Comment: Speci men Type: BLOOD SPECIMENOrdering Facility: [facility] Address: [address] [place] [address] Performed By: #### 5 7021-8 ####[facility] LABCLIA [id number] [place] [address] Differential cell count method Nom (Bld) Auto Normal [facility] Comment on above: Order Comment: Speci men Type: BLOOD SPECIMENOrdering Facility: [facility] Address: [address] [place] [address] Performed By: #### 5 7021-8 ####[facility] LABCLIA [id number] [place] [address] Eosinophils (Bld) [#/Vol] 0.28 10*3/uL Normal <0.[address] [facility] Comment on above: Order Comment: Speci men Type: BLOOD SPECIMENOrdering Facility: [facility] Address: [address] [place] [address] Performed By: #### 5 7021-8 ####[facility] LABCLIA [id number] [place] [address] Eosinophils/100 WBC (Bld) 2.6 % Normal [facility] Comment on above: Order Comment: Speci men Type: BLOOD SPECIMENOrdering Facility: [facility] Address: [address] [place] [address] Performed By: #### 5 7021-8 ####[facility] LABCLIA [id number] [place] [address] Erythrocyte distribution width (RBC) [Ratio] 14.5 % Normal 11.5-15.[address] [facility] Comment on above: Order Comment: Speci men Type: BLOOD SPECIMENOrdering Facility: [facility] Address: [address] [place] [address] Performed By: #### 5 7021-8 ####[facility] LABCLIA [id number] [place] [address] Hematocrit (Bld) [Volume fraction] 36.7 % Normal 36.0-46.[address] [facility] Comment on above: Order Comment: Speci men Type: BLOOD SPECIMENOrdering Facility: [facility] Address: [address] [place] [address] Performed By: #### 5 7021-8 ####[facility] LABCLIA [id number] [place] [address] Hemoglobin (Bld) [Mass/Vol] 11.7 g/dL Normal 11.5-15.[address] [facility] Comment on above: Order Comment: Speci men Type: BLOOD SPECIMENOrdering Facility: [facility] Address: [address] [place] [address] Performed By: #### 5 7021-8 ####[facility] LABCLIA [id number] [place] [address] Immature granulocytes (Bld) [#/Vol] 0.04 10*3/uL Normal <0.[address] [facility] Comment on above: Order Comment: Speci men Type: BLOOD SPECIMENOrdering Facility: [facility] Address: [address] [place] [address] Performed By: #### 5 7021-8 ####[facility] LABCLIA [id number] [place] [address] Immature granulocytes/100 WBC (Bld) 0.4 % Normal [facility] Comment on above: Order Comment: Speci men Type: BLOOD SPECIMENOrdering Facility: [facility] Address: [address] [place] [address] Performed By: #### 5 7021-8 ####[facility] LABCLIA [id number] [place] [address] Lymphocytes (Bld) [#/Vol] 3.20 10*3/uL Normal 1.00-4.[address] [facility] Comment on above: Order Comment: Speci men Type: BLOOD SPECIMENOrdering Facility: [facility] Address: [address] [place] [address] Performed By: #### 5 7021-8 ####[facility] LABCLIA [id number] [place] [address] Lymphocytes/100 WBC (Bld) 29.1 % Normal [facility] Comment on above: Order Comment: Speci men Type: BLOOD SPECIMENOrdering Facility: [facility] Address: [address] [place] [address] Performed By: #### 5 7021-8 ####[facility] LABCLIA [id number] [place] [address] MCH (RBC) [Entitic mass] 28.2 pg Normal 26.0-34.[address] [facility] Comment on above: Order Comment: Speci men Type: BLOOD SPECIMENOrdering Facility: [facility] Address: [address] [place] [address] Performed By: #### 5 7021-8 ####[facility] LABIA [id number] [place] [address] MCHC (RBC) [Mass/Vol] 31.9 g/dL Normal 30.5-36.0 [facility] Comment on above: Order Comment: Speci men Type: BLOOD SPECIMENOrdering Facility: [facility] Address: [address] [place] [address] Performed By: #### 5 7021-8 ####[facility] LABCLIA [id number] [place] [address] MCV (RBC) [Entitic vol] 88.4 fL Normal 80.0-100.0 [facility] Comment on above: Order Comment: Speci men Type: BLOOD SPECIMENOrdering Facility: [facility] Address: [address] [place] [address] Performed By: #### 5 7021-8 ####[facility] LABCLIA [id number] [place] [address] Monocytes (Bld) [#/Vol] 0.55 10*3/uL Normal <0.[address] [facility] Comment on above: Order Comment: Speci men Type: BLOOD SPECIMENOrdering Facility: [facility] Address: [address] [place] [address] Performed By: #### 5 7021-8 ####[facility] LABCLIA [id number] [place] [address] Monocytes/100 WBC (Bld) 5.0 % Normal [facility] Comment on above: Order Comment: Speci men Type: BLOOD SPECIMENOrdering Facility: [facility] Address: [address] [place] [address] Performed By: #### 5 7021-8 ####[facility] LABCLIA [id number] [place] [address] Neutrophils (Bld) [#/Vol] 6.86 10*3/uL Normal 1.45-7.[address] [facility] Comment on above: Order Comment: Speci men Type: BLOOD SPECIMENOrdering Facility: [facility] Address: [address] [place] [address] Performed By: #### 5 7021-8 ####[facility] LABCLIA [id number] [place] [address] Neutrophils/100 WBC (Bld) 62.4 % Normal [facility] Comment on above: Order Comment: Speci men Type: BLOOD SPECIMENOrdering Facility: [facility] Address: [address] [place] [address] Performed By: #### 5 7021-8 ####[facility] LABCLIA [id number] [place] [address] Nucleated RBC (Bld) [#/Vol] 10*3/uL Normal <0.[address] [facility] Comment on above: Order Comment: Speci men Type: BLOOD SPECIMENOrdering Facility: [facility] Address: [address] [place] [address] Performed By: #### 5 7021-8 ####[facility] LABCLIA [id number] [place] [address] Nucleated RBC/100 WBC (Bld) [Ratio] 0.0 /100 WBC Normal [facility] Comment on above: Order Comment: Speci men Type: BLOOD SPECIMENOrdering Facility: [facility] Address: [address] [place] [address] Performed By: #### 5 7021-8 ####[facility] LABCLIA [id number] [place] [address] Platelet mean volume (Bld) [Entitic vol] 8.9 fL Low 9.0-12.[address] [facility] Comment on above: Order Comment: Speci men Type: BLOOD SPECIMENOrdering Facility: [facility] Address: [address] [place] [address] Performed By: #### 5 7021-8 ####[facility] LABCLIA [id number] [place] [address] Platelets (Bld) [#/Vol] 236 10*3/uL Normal 150-[address] [facility] Comment on above: Order Comment: Speci men Type: BLOOD SPECIMENOrdering Facility: [facility] Address: [address] [place] [address] Performed By: #### 5 7021-8 ####[facility] LABCLIA [id number] [place] [address] RBC (Bld) [#/Vol] 4.15 10*6/uL Normal 3.90-5.20 [facility] Comment on above: Order Comment: Speci men Type: BLOOD SPECIMENOrdering Facility: [facility] Address: [address] [place] [address] [place] [address] Performed By: #### 5 7021-8 ####[facility] LABCLIA [id number] [place] [address] WBC (Bld) [#/Vol] 10.98 10*3/uL Normal 3.70-11.00 [facility] Comment on above: Order Comment: Speci men Type: BLOOD SPECIMENOrdering Facility: [facility] Address: [address] [place], [place] [address] [address] Performed By: #### 5 7021-8 ####[facility] LABCLIA [id number] [place] [address] CNOVSPon 06-13-2023 OVS Visit (SP) Office ([facility]) NAILA BELTRAN ([id number]) 1970 F Date Time Provider Department 06/13/23 3:30 PM GARDENIA GUPTA During your visit today, we recorded the following information about you: Temperature Pulse Respiration Blood pressure 97.5 degrees 65/minute 16/minute 146/78 Weight Height 115.8 kg 1.651 m Gardenia Gupta PA-C 06/13/2023 3:37 PM Signed DATE OF ENCOUNTER: June 13, 2023 ATTENDING PHYSICIAN: Dr. Spivey (Elements copied from Dr. Spivey's note dated June 03, 2022, have been reviewed and updated where appropriate, and all reflect current assessment and medical decision making during today's encounter, June 13, 2023) CC: Follow up HPI Naila Beltran is a 52 year old female who presents in follow up with a hypercoagulable state. - August 2008: She woke up from bed and had warm swollen left leg. [facility] diagnosed with DVT. She was negative for hereditary thrombophilias. She had a non-retractable IVC filter placed at this time. She took warfarin for a few months. 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 She was initially on 20 mg but had heavy and long menstrual periods needing an emergent hysterectomy and was then placed on 10 mg dosing. - 2017: Switched to low dose eliquis 2.5 mg BID for insurance reasons. LAC testing at this time was negative - 2019: Grafting #2 done at [facility] (Dr. Scanlon) She is on Eliquis 2.5 mg BID. She has a heart monitor per cardiology for palpitations. She denies any new clots or bleeding issues. She has vascular disease and continues to be followed and treated at [facility]. She recently had a colonoscopy and EGD with biopsies by Dr. Garcia that showed gastritis and possible irritable bowel syndrome. She is struggling with eating foods as many foods just come right back up. Had gastric emptying study which showed moderate gastroparesis. She is seeing GI. Current Outpatient Medications Medication Sig ELIQUIS 2.5 mg tab(s) take 1 tablet by mouth twice a day iv contrast (will be provided with radiology [...] in the CT contrast administration guidelines link. enteric contrast (will be provided with radiology test) For CT ABD/PEL W IVCON Routine order Administer, As Directed One Time Only, via Oral, Rectal, both Oral and Rectal, Enteric Tube, Stoma or Indwelling Catheter, Enteric Contrast as designated per enteric contrast guidelines glyBURIDE (DIABETA) 5 mg tablet take 2 tablets by mouth twice a day with meals docusate sodium (COLACE) 100 mg capsule Take 100 mg by mouth as needed. cetirizine (ZYRTEC) 10 mg tablet Take 10 mg by mouth. Fluticasone Furoate 27.5 mcg/actuation nasal spray fluticasone Fluticasone Furoate Active 1 SPRAY Intranasal Daily June 13, 2017 7:29am 06-13-2017 [facility] ([address]) sitaGLIPtin-metFORMI N (JANUMET) 50-500 mg per tablet Take 1 tablet by mouth twice daily with meals. aspirin 81 mg chewable tablet q 24 HR. albuterol HFA (PROVENTIL HFA, VENTOLIN HFA) 90 mcg/actuation inhaler Ventolin HFA 90 mcg/actuation aerosol inhaler levETIRAcetam XR (KEPPRA XR) 500 mg 24 hr tablet Take 500 mg by mouth twice daily. busPIRone HCl 30 mg tablet take 1/3 tablet by mouth three times a day metoprolol tartrate, short acting, (LOPRESSOR) 25 mg tablet twice daily. atorvastatin (LIPITOR) 40 mg tablet Take 40 mg by mouth once daily. Comp.Stocking,Thigh, Long,X-Lrg misc Wear stocking daily pregabalin (LYRICA) 150 mg capsule Take 150 mg by mouth twice daily. Multivitamins ORAL Chew None Entered hyoscyamine SR (LEVBID) 0.375 mg 12 hr tablet Take 1 tablet by mouth twice daily. lansoprazole orally disintegrating (PREVACID) 30 mg disintegrating tablet Take 1 tablet by mouth once daily. No current facility-administere d medications for this visit. ALLERGIES Allergen Reactions Aspirin Unknown Heparin Analogues Unknown Keflex [Cephalexin] Hives Penicillin G Hives PAST MEDICAL HISTORY Ischemic Coronary Artery Disease (EF 42% in 2019) follows with Dr. Christy Moreland at [facility]/Anjali Peripheral Vascular Disease; stents x 2 (2008, 2011) Carotid artery disease Epilepsy on levetiracetam Obesity Diabetes Irritable Bowel Syndrome PAST SURGICAL HISTORY Vascular stents in i (more content not included)... Normal [facility] Comprehensive metabolic 2000 panelon 06-13-2023 Albumin [Mass/Vol] 4.0 g/dL Normal 3.9-4.9 [facility] Comment on above: Order Comment: Speci men Type: BLOOD SPECIMENOrdering Facility: [facility] Address: [address] [place] [address] Performed By: #### 2 4323-8 ####[facility] LABCLIA [id number] [place] [address] ALP [Catalytic activity/Vol] 135 U/L High 34-[address] [facility] Comment on above: Order Comment: Speci men Type: BLOOD SPECIMENOrdering Facility: [facility] Address: [address] [place] [address] Performed By: #### 2 4323-8 ####[facility] LABCLIA [id number] [place] [address] ALT [Catalytic activity/Vol] 23 U/L Normal 7-[address] [facility] Comment on above: Order Comment: Speci men Type: BLOOD SPECIMENOrdering Facility: [facility] Address: [address] [place] [address] Performed By: #### 2 4323-8 ####[facility] LABCLIA [id number] [place] [address] Anion gap [Moles/Vol] 9 mmol/L Normal 9-18 [facility] Comment on above: Order Comment: Speci men Type: BLOOD SPECIMENOrdering Facility: [facility] Address: [address] [place] [address] Performed By: #### 2 4323-8 ####[facility] LABCLIA [id number] [place] [address] AST [Catalytic activity/Vol] 22 U/L Normal 13-[address] [facility] Comment on above: Order Comment: Speci men Type: BLOOD SPECIMENOrdering Facility: [facility] Address: [address] [place] [address] Performed By: #### 2 4323-8 ####[facility] LABCLIA [id number] [place] [address] Bilirubin [Mass/Vol] 0.3 mg/dL Normal 0.2-1.3 [facility] Comment on above: Order Comment: Speci men Type: BLOOD SPECIMENOrdering Facility: [facility] Address: [address] [place] [address] Performed By: #### 2 4323-8 ####[facility] LABCLIA [id number] [place] [address] Calcium [Mass/Vol] 9.7 mg/dL Normal 8.5-10.2 [facility] Comment on above: Order Comment: Speci men Type: BLOOD SPECIMENOrdering Facility: [facility] Address: [address] [place] [address] Performed By: #### 2 4323-8 ####[facility] LABCLIA [id number] [place] [address] Chloride [Moles/Vol] 103 mmol/L Normal 97-105 [facility] Comment on above: Order Comment: Speci men Type: BLOOD SPECIMENOrdering Facility: [facility] Address: [address] [place] [address] Performed By: #### 2 4323-8 ####[facility] LABCLIA [id number] [place] [address] CO2 [Moles/Vol] 27 mmol/L Normal 22-[address] [facility] Comment on above: Order Comment: Speci men Type: BLOOD SPECIMENOrdering Facility: [facility] Address: [address] [place] [address] Performed By: #### 2 4323-8 ####[facility] LABCLIA [id number] [place] [address] Creatinine [Mass/Vol] 0.89 mg/dL Normal 0.58-0.96 [facility] Comment on above: Order Comment: Sera robles Type: BLOOD SPECIMENOrdering Facility: [facility] Address: [address] [id number] Performed By: #### 2 4323-8 ####[facility] LABCLIA [id number] [place] [address] Creatinine and Glomerular filtration rate.predicted panel (S/P/Bld) 78 mL/min/1.73m??? Normal >=[address] [facility] Comment on above: Order Comment: Sera travis Type: BLOOD SPECIMENOrdering Facility: [facility] Address: [address] [place] [address] Result Comment: Danae mated Glomerular Filtration Rate (eGFR) is calculated using the 2020 CKD-EPI creatinine equation. This equation utilizes serum creatinine, sex, and age as parameters. The creatinine assay has traceable calibration to isotope dilution-mass spectrometry. Refer to KDIGO guidelines for clinical interpretation. In patients with unstable renal function, e.g. those with acute kidney injury, the eGFR may not accurately reflect actual GFR. Performed By: #### 2 4323-8 ####[facility] LABCLIA [id number] [place] [address] Glucose [Mass/Vol] 96 mg/dL Normal 74-99 [facility] Comment on above: Order Comment: Sera travis Type: BLOOD SPECIMENOrdering Facility: [facility] Address: [address] [id number] Result Comment: The [place] Diabetes Association (ADA) provides guidance for cutoff values for fasting glucose and random glucose. The ADA defines fasting as no caloric intake for at least 8 hours. Fasting plasma glucose results between 100 to 125 mg/dL indicate increased risk for diabetes (prediabetes). Fasting plasma glucose results greater than or equal to 126 mg/dL meet the criteria for diagnosis of diabetes. In the absence of unequivocal hyperglycemia, results should be confirmed by repeat testing. In a patient with classic symptoms of hyperglycemia or hyperglycemic crisis, random plasma glucose results greater than or equal to 200 mg/dL meet the criteria for diagnosis of diabetes. Reference: Standards of Medical Care in Diabetes 2016, [place] Diabetes Association. Diabetes Care. 2016.39(Suppl 1). Performed By: #### 2 4323-8 ####[facility] LABCLIA [id number] [place] [address] Potassium [Moles/Vol] 3.5 mmol/L Low 3.7-5.1 [facility] Comment on above: Order Comment: Speci men Type: BLOOD SPECIMENOrdering Facility: [facility] Address: [address] [place] [address] Performed By: #### 2 4323-8 ####[facility] LABCLIA [id number] [place] [address] Protein [Mass/Vol] 7.7 g/dL Normal 6.3-8.0 [facility] Comment on above: Order Comment: Speci men Type: BLOOD SPECIMENOrdering Facility: [facility] Address: [address] [place] [address] Performed By: #### 2 4323-8 ####[facility] LABCLIA [id number] [place] [address] Sodium [Moles/Vol] 139 mmol/L Normal 136-144 [facility] Comment on above: Order Comment: Speci men Type: BLOOD SPECIMENOrdering Facility: [facility] Address: [address] [place] [address] Performed By: #### 2 4323-8 ####[facility] LABCLIA [id number] [place] [address] Urea nitrogen [Mass/Vol] 14 mg/dL Normal 7-[address] [facility] Comment on above: Order Comment: Speci men Type: BLOOD SPECIMENOrdering Facility: [facility] Address: [address] [place] [address] Performed By: #### 2 4323-8 ####[facility] LABCLIA [id number] [place] [address] [facility] 03-16-2023 [facility] [id number] Naila Beltran 1970 F Date Provider Department Center 03/16/[address] [facility] No family history on file Level of Service:[address] [place] PHYS/QHP TELEPHONE EVALUATION 11-20 MIN Normal [facility] Alanine aminotransferase [En zymatic activity/volume] in Serum or PlasmaOrdered By: Dennis Clark on 02-14-2023 ALT [Catalytic activity/Vol] 23 U/L Normal 7-52 [facility] Comment on above: Performed By: #### H S TROP, TERESITA, CMP, CK, LIPASE, CBC #### [facility] [address] Albumin [Mass/volume] in Ser um or Plasma by Bromocresol green (BCG) dye binding methoOrdered By: Dnenis Clark on 02-14-2023 Albumin BCG dye [Mass/Vol] 4.0 g/dL 3.5-5.7 [facility] Alkaline phosphatase [Enzyma tic activity/volume] in Serum or PlasmaOrdered By: Dennis Clark on 02-14-2023 ALP [Catalytic activity/Vol] 91 U/L Normal 34-104 [facility] Comment on above: Performed By: #### H S TROP, TERESITA, CMP, CK, LIPASE, CBC #### [facility] [address] [place] [address] [place] Amylase [Enzymatic activity/ volume] in Serum or PlasmaOrdered By: Dennis Clark on 02-14-2023 Amylase [Catalytic activity/Vol] 25 U/L Low 29-103 [facility] Comment on above: Performed By: #### H S TROP, TERESITA, CMP, CK, LIPASE, CBC #### [facility] [address] Aspartate aminotransferase [ Enzymatic activity/volume] in Serum or PlasmaOrdered By: Dennis Clark on 02-14-2023 AST [Catalytic activity/Vol] 26 U/L Normal 13-39 [facility] Comment on above: Performed By: #### H S TROP, TERESITA, CMP, CK, LIPASE, CBC #### [facility] [address] [place] [address] [place] Automated basophil %Ordered By: Dennis Clark on 02-14-2023 Basophils/100 WBC (Bld) 0.9 % Normal . [facility] Comment on above: Performed By: #### H S TROP, TERESITA, CMP, CK, LIPASE, CBC #### [address] Automated basophil countOrde red By: Dennis Clark on 02-14-2023 Basophils (Bld) [#/Vol] 0.1 10*3/uL Normal 0.0-0.2 [facility] Comment on above: Result Comment: PERF ORMED BY: [place] [address] PATHOLOGIST CUSTOMS INVESTIGATOR ANNE PARKINSON M.D. Performed By: #### H S TROP, TERESITA, CMP, CK, LIPASE, CBC #### [address] Automated blood monocyte cou ntOrdered By: Dennis Clark on 02-14-2023 Monocytes (Bld) [#/Vol] 0.4 10*3/uL Normal 0.0-0.8 [facility] Comment on above: Performed By: #### H S TROP, TERESITA, CMP, CK, LIPASE, CBC #### [address] Automated eosinophil %Ordere d By: Dennis Clark on 02-14-2023 Eosinophils/100 WBC (Bld) 2.5 % Normal . [facility] Comment on above: Performed By: #### H S TROP, TERESITA, CMP, CK, LIPASE, CBC #### [address] Automated eosinophil countOr dered By: Dennis Clark on 02-14-2023 Eosinophils (Bld) [#/Vol] 0.2 10*3/uL Normal 0.0-0.45 [facility] Comment on above: Performed By: #### H S TROP, TERESITA, CMP, CK, LIPASE, CBC #### [address] Automated monocyte %Ordered By: Dennis Clark on 02-14-2023 Monocytes/100 WBC (Bld) 5.1 % Normal . [facility] Comment on above: Performed By: #### H S TROP, TERESITA, CMP, CK, LIPASE, CBC #### [facility] [address] Automated neutrophil %Ordere d By: Dennis Clark on 02-14-2023 Neutrophils/100 WBC (Bld) 61.5 % Normal . [facility] Comment on above: Performed By: #### H S TROP, TERESITA, CMP, CK, LIPASE, CBC #### [facility] [address] Bilirubin.total [Mass/volume ] in Serum or PlasmaOrdered By: Dennis Clark on 02-14-2023 Bilirubin [Mass/Vol] 0.5 mg/dL Normal 0.3-1.0 [facility] Comment on above: Performed By: #### H S TROP, TERESITA, CMP, CK, LIPASE, CBC #### [address] Calcium [Mass/volume] in Ser um or PlasmaOrdered By: Dennis Clark on 02-14-2023 Calcium [Mass/Vol] 9.0 mg/dL Normal 8.6-10.3 [facility] Comment on above: Performed By: #### H S TROP, TERESITA, CMP, CK, LIPASE, CBC #### [address] Carbon dioxide, total [Moles /volume] in Serum or PlasmaOrdered By: Dennis Clark on 02-14-2023 CO2 [Moles/Vol] 28.0 mmol/L Normal 21.0-31.0 [facility] Comment on above: Performed By: #### H S TROP, TERESITA, CMP, CK, LIPASE, CBC #### [facility] [address] [place] [address] [place] Chloride [Moles/volume] in S delaney or PlasmaOrdered By: Dennis Clark on 02-14-2023 Chloride [Moles/Vol] 104 mmol/L Normal 98-107 [facility] Comment on above: Performed By: #### H S TROP, TERESITA, CMP, CK, LIPASE, CBC #### [address] Complete Blood Count Auto Di ffon 02-14-2023 Mean Corpuscular HGB Conc 32.5 g/dL Normal 32.0-35.0 [facility] Comment on above: Performed By: #### H S TROP, TERESITA, CMP, CK, LIPASE, CBC #### [address] Monocytes/100 WBC (Bld) 23.45 % High 0.00-20.00 [facility] Comment on above: Result Comment: For adults in ED, MDW > 20.0 may be associated with a higher risk of sepsis during the first 12 hrs of hospital admission Performed By: #### H S TROP, TERESITA, CMP, CK, LIPASE, CBC #### [address] NRBC% 0.1 /100{WBC} Normal 0-0.5 [facility] Comment on above: Performed By: #### H S TROP, TERESITA, CMP, CK, LIPASE, CBC #### [address] Comprehensive Metabolic Pane zaki 02-14-2023 Albumin [Mass/Vol] 4.0 g/dL Normal 3.5-5.7 [facility] Comment on above: Performed By: #### H S TROP, TERESITA, CMP, CK, LIPASE, CBC #### [address] Creatinine Clr Calc Pharmacy 100.24 Normal [facility] Comment on above: Performed By: #### H S TROP, TERESITA, CMP, CK, LIPASE, CBC #### [place] [address] [place] GFR/1.73 sq M.predicted MDRD (S/P/Bld) [Vol rate/Area] mL/min/{1.73_m2} Normal [facility] Comment on above: Performed By: #### H S TROP, TERESITA, CMP, CK, LIPASE, CBC #### [address] Creatine kinase [Enzymatic a ctivity/volume] in Serum or PlasmaOrdered By: Dennis Clark on 02-14-2023 CK [Catalytic activity/Vol] 22 U/L Low 30-223 [facility] Comment on above: Performed By: #### H S TROP, TERESITA, CMP, CK, LIPASE, CBC #### [facility] [address] [place] [address] [place] Creatinine [Mass/volume] in Serum or PlasmaOrdered By: Dennis Clark on 02-14-2023 Creatinine [Mass/Vol] 0.85 mg/dL Normal 0.60-1.20 [facility] Comment on above: Performed By: #### H S TROP, TERESITA, CMP, CK, LIPASE, CBC #### [facility] [address] [place] [address] [facility] lead ECGon 02-14-2023 ECG 12 lead ECG [facility] [place] [address] [place] [address] Electrocardiograph Report Signed Patient: Naila Beltran MR#: [id number] 7 : 1970 Acct:[id number] Age/Sex: 52 / F ADM Date: 02/14/23 Loc: ER Room: Type: [facility] Attending Dr: Ordering Provider: Dennis Clark MD Date of Service: 02/14/23 ECG/ECG 12 lead ECG: Chest Pain Copies to: Test Reason : Blood Pressure : 152/078 mmHG Vent. Rate : 070 BPM Atrial Rate : 070 BPM P-R Int : 146 ms QRS Dur : 078 ms QT Int : 400 ms P-R-T Axes : 034 015 014 degrees QTc Int : 432 ms Normal sinus rhythm with sinus arrhythmia Cannot rule out Anterior infarct (cited on or before 26-MAY-2020) Abnormal ECG When compared with ECG of 26-MAY-2020 16:40, fusion complexes are no longer present Confirmed by DENNIS CLARK MD ([id number]) on 02/14/2023 11:38:01 PM Referred By: Electronically Signed By:DENNIS CLARK MD Transcribed By: MUS Signed By Dennis Clark MD 02/14/23 7489 Normal [facility] Erythrocyte distribution wid th [Ratio] by Automated countOrdered By: Dennis Clark on 02-14-2023 Erythrocyte distribution width (RBC) [Ratio] 16.4 % High 11.9-15.3 [facility] Comment on above: Performed By: #### H S TROP, TERESITA, CMP, CK, LIPASE, CBC #### [facility] [address] Erythrocytes [#/volume] in B lood by Automated countOrdered By: Dennis Clark on 02-14-2023 RBC (Bld) [#/Vol] 3.88 10*6/uL Normal 3.60-5.00 [facility] Comment on above: Performed By: #### H S TROP, TERESITA, CMP, CK, LIPASE, CBC #### [facility] [address] Glucose [Mass/volume] in Ser um or PlasmaOrdered By: Dennis Clark on 02-14-2023 Glucose [Mass/Vol] 111 mg/dL High 70-100 [facility] Comment on above: ADA recommended refe rence rangeRandom Glucose Reference Range is dependent on time and content of last meal. Glucose of more than 200 mg/dL in a nonstressed, ambulatory subject supports the diagnosis of Diabetes Mellitus. Result Comment: [place] om Glucose Reference Range is dependent on time and content of last meal. Glucose of more than 200 mg/dL in a nonstressed, ambulatory subject supports the diagnosis of Diabetes Mellitus. ADA recommended reference range Performed By: #### H S TROP, TERESITA, CMP, CK, LIPASE, CBC #### [facility] [address] Hematocrit [Volume Fraction] of Blood by Automated countOrdered By: Dennis Clark on 02-14-2023 Hematocrit (Bld) [Volume fraction] 33.5 % Low 34.0-46.4 [facility] Comment on above: Performed By: #### H S TROP, TERESITA, CMP, CK, LIPASE, CBC #### [facility] [address] Hemoglobin [Mass/volume] in BloodOrdered By: Dennis Clark on 02-14-2023 Hemoglobin (Bld) [Mass/Vol] 10.9 g/dL Low 11.8-15.4 [facility] Comment on above: Performed By: #### H S TROP, TERESITA, CMP, CK, LIPASE, CBC #### [facility] [address] [place] [address] Leukocytes [#/volume] correc esvin for nucleated erythrocytes in Blood by Automated counOrdered By: Dennis Clark on 02-14-2023 WBC corrected for nucl RBC Auto (Bld) [#/Vol] 7.7 10*3/uL 3.8-11.6 [facility] Leukocytes [#/volume] in Blo od by Automated countOrdered By: Dennis Clark on 02-14-2023 WBC (Bld) [#/Vol] 7.7 10*3/uL Normal 3.8-11.6 [facility] Comment on above: Performed By: #### H S TROP, TERESITA, CMP, CK, LIPASE, CBC #### [address] Lipase [Enzymatic activity/v olume] in Serum or PlasmaOrdered By: Dennis Clark on 02-14-2023 Lipase [Catalytic activity/Vol] 50.0 U/L Normal 11.0-82.0 [facility] Comment on above: Result Comment: PERF ORMED BY: [place] [address] PATHOLOGIST CUSTOMS INVESTIGATOR ANNE PARKINSON M.D. Performed By: #### H S TROP, TERESITA, CMP, CK, LIPASE, CBC #### [facility] [address] [place] [address] [place] Lymphocytes [#/volume] in Bl ood by Automated countOrdered By: Dennis Clark on 02-14-2023 Lymphocytes (Bld) [#/Vol] 2.3 10*3/uL Normal 1.00-4.8 [facility] Comment on above: Performed By: #### H S TROP, TERESITA, CMP, CK, LIPASE, CBC #### [place] [address] [place] Lymphocytes/100 leukocytes i n Blood by Automated countOrdered By: Dennis Clark on 02-14-2023 Lymphocytes/100 WBC (Bld) 30.0 % Normal . [facility] Comment on above: Performed By: #### H S TROP, TERESITA, CMP, CK, LIPASE, CBC #### [facility] [address] [place] [address] MCH [Entitic mass] by Automa esvin countOrdered By: Dennis Clark on 02-14-2023 MCH (RBC) [Entitic mass] 28.0 pg Normal 24.7-34.3 [facility] Comment on above: Performed By: #### H S TROP, TERESITA, CMP, CK, LIPASE, CBC #### [address] MCHC Auto (RBC) [Mass/Vol]Or dered By: Dennis Clark on 02-14-2023 MCHC (RBC) [Mass/Vol] 32.5 g/dL 32.0-35.0 [facility] MCV [Entitic volume] by Auto mated countOrdered By: Dennis Clark on 02-14-2023 MCV (RBC) [Entitic vol] 86.2 fL Normal 80-[address] [facility] Comment on above: Performed By: #### H S TROP, TERESITA, CMP, CK, LIPASE, CBC #### [address] Monocyte distribution width [Entitic volume] in Blood by AutomatedOrdered By: Dennis Clark on 02-14-2023 Monocyte distribution width Auto (Bld) [Entitic vol] 23.45 % 0.00-20.00 [facility] Comment on above: For adults in ED, MD W > 20.0 may be associated with a higher risk of sepsis during the first 12 hrs of hospital admission Neutrophils [#/volume] in Bl ood by Automated countOrdered By: Dennis Clark on 02-14-2023 Neutrophils (Bld) [#/Vol] 4.7 10*3/uL Normal 1.8-7.7 [facility] Comment on above: Performed By: #### H S TROP, TERESITA, CMP, CK, LIPASE, CBC #### [address] No Panel InformationOrdered By: Dennis Clark on 02-14-2023 Estimated GFR (CKD-EPI) > 60.0 mL/Min [facility] Creatinine Clearance (Chem 100.24 [facility] Nucleated erythrocytes [Pres ence] in Blood by Automated countOrdered By: Dennis Clark on 02-14-2023 Nucleated RBC Auto Ql (Bld) 0.1 /100{WBC} 0-0.5 [facility] Platelet mean volume [Entiti c volume] in Blood by Automated countOrdered By: Dennis Clark on 02-14-2023 Platelet mean volume (Bld) [Entitic vol] 7.3 fL Normal 6.3-10.7 [facility] Comment on above: Performed By: #### H S TROP, TERESITA, CMP, CK, LIPASE, CBC #### [address] Platelets [#/volume] in Bloo d by Automated countOrdered By: Dennsi Clark on 02-14-2023 Platelets (Bld) [#/Vol] 251 10*3/uL Normal 150-450 [facility] Comment on above: Performed By: #### H S TROP, TERESITA, CMP, CK, LIPASE, CBC #### [facility] [address] [place] [address] Potassium [Moles/volume] in Serum or PlasmaOrdered By: Dennis Clark on 02-14-2023 Potassium [Moles/Vol] 3.9 mmol/L Normal 3.5-5.1 [facility] Comment on above: Performed By: #### H S TROP, TERESITA, CMP, CK, LIPASE, CBC #### [facility] [address] [place] [address] Protein [Mass/volume] in Ser um or PlasmaOrdered By: Dennis Clark on 02-14-2023 Protein [Mass/Vol] 7.4 g/dL Normal 6.4-8.9 [facility] Comment on above: Performed By: #### H S TROP, TERESITA, CMP, CK, LIPASE, CBC #### [facility] [address] [place] [address] Serum globulin measurement b y calculation (mass/volume)Ordered By: Dennis Clark on 02-14-2023 Globulin (S) [Mass/Vol] 3.4 g/dL Normal [facility] Comment on above: Performed By: #### H S TROP, TERESITA, CMP, CK, LIPASE, CBC #### [address] Serum or plasma albumin/glob ulin mass ratioOrdered By: Dennis Clark on 02-14-2023 Albumin/Globulin [Mass ratio] 1.2 {ratio} Normal [facility] Comment on above: Performed By: #### H S TROP, TERESITA, CMP, CK, LIPASE, CBC #### [address] Serum or plasma anion gap de terminationOrdered By: Dennis Clark on 02-14-2023 Anion gap [Moles/Vol] 10.9 mmol/L Normal 6.0-15.0 [facility] Comment on above: Performed By: #### H S TROP, TERESITA, CMP, CK, LIPASE, CBC #### [address] Sodium [Moles/volume] in Ser um or PlasmaOrdered By: Dennis Clark on 02-14-2023 Sodium [Moles/Vol] 139 mmol/L Normal 136-145 [facility] Comment on above: Performed By: #### H S TROP, TERESITA, CMP, CK, LIPASE, CBC #### [address] Troponin I High Sensitivityo n 02-14-2023 Troponin I High Sensitivity 2.4 pg/mL Normal 0.0-15.0 [facility] Comment on above: Result Comment: PERF ORMED BY: [place] [address] PATHOLOGIST CUSTOMS INVESTIGATOR ANNE PARKINSON M.D. Performed By: #### H S TROP, TERESITA, CMP, CK, LIPASE, CBC #### [address] Troponin I.cardiac [Mass/vol ume] in Serum or Plasma by Detection limit <= 0.01 ng/Ordered By: Dennis Clark on 02-14-2023 Troponin I.cardiac DL <= 0.01 ng/mL [Mass/Vol] 2.4 pg/mL 0.0-15.0 [facility] Urea nitrogen [Mass/volume] in Serum or PlasmaOrdered By: Dennis Clark on 02-14-2023 Urea nitrogen [Mass/Vol] 10 mg/dL Normal 7-25 [facility] Comment on above: Performed By: #### H S TROP, TERESITA, CMP, CK, LIPASE, CBC #### [facility] [address] XR chest 1V portableon 02-14 XR chest 1V portable [facility] [place] [address] [place] [address] XRay Report Signed Patient: Naila Beltran MR#: [id number] 7 : 1970 Acct:[id number] Age/Sex: 52 / F ADM Date: 02/14/23 Loc: ER Room: Type: [facility] ER Attending Dr: Copies to: Dennis Clark MD Ordering Provider: Dennis Clark MD Date of Service: 02/14/23 XR/XR chest 1V portable: Chest Pain Plain film chest Single view HISTORY: Chest pain COMPARISON: None FINDINGS: SUPPORT DEVICES: None POSTSURGICAL CHANGES: None HEART: Within normal limits PULMONARY MARGARITA: Within normal limits MEDIASTINUM: Unremarkable LUNGS AND PLEURA: No acute lung process, pleural effusion or pneumothorax identified. BONY STRUCTURES: Intact ADDITIONAL FINDINGS None XR/XR chest 1V portable IMPRESSION: No acute process. Impression dictated by: Chris Holly M.D.02/14/2023 6:54 PM Dictation Location: [place] [address] Transcribed By: [facility] 02/14/231853 Dictated By: Chris Holly DO 02/14/231852 Signed By: 02/14/231853 Normal [facility] Cardiovascular Lab Reporton 09-18-2020 Cardiovascular Lab Report [facility] Patient Name: Naila Beltran [facility] MR #: [id number] Physician: Yas Clinton Department of Lucas Nguyễn Medicine Service Date: 09/18/2020 Division of Birthdate: 1970 Cardiology Room #: Adult Cardiovascular Services [facility] [address] [place], [place] [address] Cardiovascular Laboratory Report INDICATION: The patient is a 50-year-old woman with shortness of breath and chest pain. She underwent a stress test that showed anterior ischemia. She was evaluated in Cardiology Clinic and referred for cardiac catheterization. PROCEDURES: 1. Right heart catheterization. 2. Bilateral selective coronary angiography. 3. Limited right common femoral angiography. METHODS: The procedure was explained to the patient with risks and benefits. She signed the informed consent. She was brought to label operator in a fasting state. The right groin was prepped and draped in usual fashion. Using micropuncture technique, the right common femoral artery was accessed. The inner cannula angiography was performed. The access was then upsized to a 4-Argentine x 11 cm sheath. Access was obtained using same technique in the right common femoral vein and a 5-Argentine x 11 cm sheath was placed. A 5-Argentine Martinez catheter was used for right heart catheterization with measurement of pressures and calculation of cardiac output using the estimated Teresa method. Martinez catheter was removed. Bilateral selective coronary angiography was then performed using 4-Argentine JL4 and JR4 diagnostic catheters. Catheters were removed. Procedure was concluded. Manual compression was used for hemostasis in the right common femoral artery and vein. She will be observed for 4-5 hours and then discharged to home. TOTAL FLUORO TIME: 8.22 minutes. TOTAL AIR KERMA: 559 mGy. TOTAL SEDATION TIME: 49 minutes. TOTAL CONTRAST VOLUME: 20 mL. HEMODYNAMICS: RA 5, RV 34/0, 8. PA 33/5, mean 17, pulmonary capillary wedge pressure 7. AO 118/65 mean 86. Cardiac output 6.12, cardiac index 2.73. PA sat 63%, AO sat 91% . CORONARY ANGIOGRAPHY: This is a right dominant circulation. Left main arises from the left coronary cusp. It bifurcates into left anterior descending and circumflex vessels. Left main is free of disease. Left anterior descending is angiographically normal. Circumflex vessel is angiographically normal. Right coronary artery arises from the right coronary cusp. It is a large and dominant vessel. It is angiographically normal. Limited right common femoral angiography, this showed access to be in the right common femoral artery with no obstructive lesions noted in the femoral artery or its proximal branches. SUMMARY OF THE FINDINGS: 1. Normal coronary angiogram. 2. Normal filling pressures. 3. Normal pulmonary arterial pressures. 4. Preserved cardiac output and cardiac index. RECOMMENDATIONS: 1. Medical therapy. 2. Follow up in Cardiology Clinic. 3. The patient may resume Eliquis therapy for factor V Leiden the next day. Electronically Signed by: Yas Nguyễn M.D. 09/21/2020 10:29 A Yas Nguyễn M.D. Date Dict: 09/18/2020/12:35 P/Yas Nguyễn M.D. Date Trans: 09/18/2020 02:26 P/mmo [id number] Normal [facility] ANES POSTPROC EVALon 021 ANES POSTPROC EVAL HNO ID: [id number] Author: Hernesto Chew Service: ? Author Type: Anesthesiologist Type: Anesthesia Postprocedure Evaluation Filed: 03/16/2020 2:46 PM Note Text: POST ANESTHESIA EVALUATION NOTE : 1970 Procedure Summary Date: 03/16/20 Room / Location: [place] [address] / OR Anesthesia Start: 735 Anesthesia Stop: 919 Procedure: LAPAROSCOPIC CHOLECYSTECTOMY (N/A Gallbladder) Diagnosis: Biliary colic (Biliary colic [K80.50]) Surgeons: Cortney Haywood Responsible Provider: Hernesto Chew Anesthesia Type: general ASA Status: 3 Anesthesia Type: general Last vitals Vitals Value Taken Time BP 121/87 03/16/20 1100 Temp 36.8 ?C (98.2 ?F) 03/16/20 1100 Pulse 62 03/16/20 1100 Resp 23 03/16/20 1100 SpO2 97 % 03/16/20 1100 Post Anesthesia Patient Status Patient Evaluation: PACU. PACU/ICU Patient Condition: stable. Anticipated Disposition: phase 2 then home. Neurological Status: aware and responsive. Pulmonary Status: breathing comfortably on room air Airway Control: returned to baseline unsupported. Cardiovascular Status: stable. Pain Management: clinically adequate Postoperative Hydration: acceptable. Intraoperative Events: no significant anesthesia events Post Operative Nausea/Vomiting Status: no significant post operative nausea or vomiting Anesthetic Observations: no significant anesthetic observations Recommendation: continue current plan of care. SIGNATURE: Hernesto Chew MD PATIENT NAME: Naila Beltran DATE: March 16, 2020 TIME: 2:46 PM CSN: [id number] [facility] ANES PRE-OPon 03-16-2020 ANES PRE-OP HNO ID: [id number] Author: Hernesto Chew Service: ? Author Type: Anesthesiologist Type: Anesthesia Preprocedure Evaluation Filed: 03/16/2020 7:18 AM Note Text: ANESTHESIOLOGY DAY OF SURGERY NOTE : 1970 Procedure(s) (LRB): LAPAROSCOPIC CHOLECYSTECTOMY (N/A) Surgeon(s): Cortney Haywood Estimated body mass index is 41.32 kg/m? as calculated from the following: Height as of 03/04/20: 167.6 cm (5' 6 ). Weight as of 03/04/20: 116.1 kg (256 lb). Most recent hematocrit and potassium results: Hematocrit 39.4 02/06/2020 Potassium 4.2 02/06/2020 Relevant Problems CARDIO (+) Ascending aorta dilation (HCC) (+) Coronary artery disease of [place] artery of [place] heart with stable angina pectoris (HCC) (+) Vascular disease ENDO (+) Type 2 diabetes mellitus without complication, without long-term current use of insulin (HCC) GI (+) GERD (gastroesophageal reflux disease) -RENAL (+) Fatty liver NEURO-PSYCH (+) History of COVID-19 (+) Personal history of DVT (deep vein thrombosis) (+) Seizures (HCC) PULMONARY (+) History of COVID-19 (+) SOB (shortness of breath) I - PHYSICAL EVALUATION AIRWAY Patient intubated: No. Tracheostomy tube not present Mallampati: III. TM distance: >3 FB. Neck ROM: full ROM without neurological symptoms. Mouth opening: adequate. Short neck: no. Thick neck: no DENTAL Dental findings: edentulous. Dentures, upper: complete. Dentures, lower: complete. Additional exam findings: no II - ANESTHESIA PLAN ASA Score: 3 Anesthetic Plan: general Airway type: ETT The patient is not a current smoker. NPO Status: adequate Monitoring plan: standard ASA. Postoperative analgesic plan: parenteral or oral opioids. Anesthetic Risks, Benefits, Alternatives, Personnel Discussed. Consent obtained from: patient. Patient / Surrogate agrees to blood products: Yes Significant changes in the patient condition since the History and Physical, not otherwise documented in primary service progress note: no. Potential Anesthesia issues that may suggest increased risk of complications or contraindication to planned procedure: none. Vitals Value Taken Time BP 129/76 03/16/20650 Pulse 56 03/16/20650 Resp 16 03/16/20650 Temp 36.2 ?C (97.2 ?F) 03/16/20650 SpO2 100 % 03/16/20650 Facility-Administere d Medications as of 03/16/2020 Medication Dose Route Frequency - lidocaine 10 mg/mL (1 %) 1-2 mg injection (XYLOCAINE) 0.1-0.2 mL INTRADERMAL PRN - lactated ringers infusion 5-30 mL/hr INTRAVENOUS CONTINUOUS - clindamycin iv piggyback 900 mg in D5W 50 mL (CLEOCIN) 900 mg INTRAVENOUS Pre-Op Once - acetaminophen 1,000 mg tab(s) (TYLENOL) 1,000 mg ORAL Pre-Op Once - promethazine 12.5 mg tab(s) (PHENERGAN) 12.5 mg ORAL Pre-Op Once - lactated ringers infusion 30 mL/hr INTRAVENOUS CONTINUOUS Outpatient Medications as of 03/16/2020 Medication Sig - ZENPEP 40,000-126,000- 168,000 unit cpDR take 1 capsule by mouth three times a day with meals - docusate sodium (COL-RITE) 100 mg capsule Take 100 mg by mouth as needed. - cetirizine (ZYRTEC) 10 mg tablet Take 10 mg by mouth. - dicyclomine (BENTYL) 20 mg tablet Take 20 mg by mouth twice daily. 2 tabs in the AM and 2 tabs in the PM - fluticasone-vilanter ol (BREO ELLIPTA) 200-25 mcg/dose inhaler inhale 1 puff by mouth and INTO THE LUNGS once daily RINSE MOUTH AND SPIT AFTER EACH USE - pantoprazole DR (PROTONIX) 40 mg tablet Take 40 mg by mouth. - sertraline (ZOLOFT) 100 mg tablet Take 100 mg by mouth once daily. - aspirin 81 mg chewable tablet q 24 HR. - albuterol HFA (VENTOLIN HFA) 90 mcg/actuation inhaler Ventolin HFA 90 mcg/actuation aerosol inhaler - levETIRAcetam XR (KEPPRA XR) 500 mg 24 hr tablet Take 500 mg by mouth twice daily. - busPIRone HCl 30 mg tablet take 1/3 tablet by mouth three times a day - metoprolol tartrate, short acting, (LOPRESSOR) 25 mg tablet twice daily. - atorvastatin (LIPITOR) 40 mg tablet Take 40 mg by mouth once daily. - pregabalin (LYRICA) 150 mg capsule Take 150 mg by mouth twice daily. - Multivitamins ORAL Chew None Entered - Fluticasone Furoate 27.5 mcg/actuation nasal spray fluticasone Fluticasone Furoate Active 1 SPRAY Intranasal Daily June 13, 2017 7:29am 06-13-2017 [facility] (565[address]) - sitaGLIPtin-metFORMI N (JANUMET) 50-500 mg per tablet Take 1 tablet by mouth twice daily with meals. - ELIQUIS 2.5 mg tab tab(s) Take 1 tablet by mouth twice daily. - Comp.Stocking,Thigh, Long,X-Lrg misc Wear stocking daily I have interviewed and examined the patient. I have reviewed the medical record and/or the pre-anesthesia evaluation, pertinent labs, and test results. This contains updated information obtained within 48 hours of Surgery/Procedure. SIGNATURE: Hernesto Chew MD PATIENT NAME: Naila Beltran DATE: March 16, 2020 TIME: 7:17 AM CSN: [id number] [facility] BRIEF OP NOTon 03-16-2020 BRIEF OP NOT HNO ID: [id number] Author: Lu Luke MD Service: General Surgery Author Type: Resident Type: Brief Op Note Filed: 03/16/2020 9:11 AM Note Text: BRIEF OP NOTE LOG ID: [id number] Surgery/Procedure Date: 03/16/2020 Incision/Procedure Start Time: 7:56 AM Incision Close/Procedure End Time: 9:06 AM Surgeon(s)/Procedura list(s) and Die Cast Technician(s): Surgeon(s) and Role: * Cortney Haywood - Primary * Lu Luke MD - Resident - Assisting Procedure(s): Laparoscopic cholecystectomy Anesthesia: General Findings: cholelithiasis, gallbladder deeply embedded in liver Tubes/Drains: none Estimated Blood Loss: 15 mls Specimens: gallbladder Implants: * No implants in log * Complications: None Pre-Op/Pre-Procedure Diagnosis: Pre-Op Diagnosis Codes: * Biliary colic [K80.50] Post-Op/Post-Procedu re Diagnosis: Same SIGNATURE: Lu Luke MD PATIENT NAME: Naila Beltran DATE: March 16, 2020 TIME: 9:10 AM PAGER/CONTACT #: [phone] [facility] HISTORY PHYSICALon HISTORY PHYSICAL HNO ID: [id number] Author: Lu Luke MD Service: General Surgery Author Type: Resident Type: HANDP Filed: 03/16/2020 7:09 AM Note Text: UPDATED HISTORY AND PHYSICAL EXAMINATION SERVICE DATE: 03/16/2020 SERVICE TIME: 7:08 AM PHYSICAL EXAM MUST BE COMPLETED ON ADMISSION The History and Physical (completed in the past 30 days) has been reviewed and the patient has been examined. The contents accurately reflect the patient's condition with the following additions or revisions since the HANDP was completed. Examination indicates no changes. This HANDP can be found in the Electronic Medical Record dated 03/04/2020. SIGNATURE: Lu Luke MD PATIENT NAME: Naila Beltran DATE: March 16, 2020 TIME: 7:08 AM PAGER: [facility] NURSING PROGon 03-16-2020 NURSING PROG HNO ID: [id number] Author: Ambar ChawlaRn) LITO Swann Service: Nursing Author Type: Registered Nurse Type: Nursing Progress Note Filed: 03/16/2020 11:08 AM Note Text: PATIENT EDUCATION TOPIC: PROCEDURE / SURGERY: Post-op Teaching: Med Administration, Symptom Management and Wound Care PATIENT NAME: Naila Beltran PATIENT LOCATION: [facility] OR POOL/[facility] OR POOL READINESS TO LEARN COGNITIVE ABILITY: Alert and oriented MOTIVATION TO LEARN: Eager Interested FAMILY SUPPORT: High - Very involved in pt care INSTRUCTION PROVIDED TO: Patient PATIENT LEARNS BEST BY: Individual Instruction Written Instruction - Hand-outs Verbal Instruction FACTORS AFFECTING LEARNING: None PHYSICAL LIMITATIONS AFFECTING LEARNING: None LEARNING RESPONSE DIAGNOSIS: ADULT: Well Adult PATIENT/FAMILY RESPONSE: Verbalizes understanding of: POST-OPERATIVE INSTRUCTIONS-Correct actions to take to reduce postoperative complications METHOD OF INSTRUCTION: Individual instruction Written instruction - handouts Verbal instruction FOLLOW-UP PLAN: Complete - No need for follow-up INSTRUCTIONAL AIDS USED: NA SUPPLEMENTAL MATERIAL PROVIDED TO PATIENT: None REFERRAL (RECOMMENDATION): None Electronically Signed By: Ambar Swann RN [facility] NURSING PROG HNO ID: [id number] Author: Howie (Rn) LITO Jenkins Service: Nursing Author Type: Registered Nurse Type: Nursing Progress Note Filed: 03/16/2020 6:54 AM Note Text: PATIENT EDUCATION TOPIC: PROCEDURE / SURGERY: Pre-op Teaching: Protocols PATIENT NAME: Naila Beltran PATIENT LOCATION: [place] READINESS TO LEARN COGNITIVE ABILITY: Alert and oriented MOTIVATION TO LEARN: Interested FAMILY SUPPORT: Unable to assess - Family not present INSTRUCTION PROVIDED TO: Patient PATIENT LEARNS BEST BY: Individual Instruction FACTORS AFFECTING LEARNING: None PHYSICAL LIMITATIONS AFFECTING LEARNING: None LEARNING RESPONSE DIAGNOSIS: ADULT: Well Adult PATIENT/FAMILY RESPONSE: Verbalizes understanding of: PRE-OPERATIVE INSTRUCTIONS-Correct action to take to follow pre-operative instructions METHOD OF INSTRUCTION: Individual instruction FOLLOW-UP PLAN: Patient instructed to call with any further issues INSTRUCTIONAL AIDS USED: NA SUPPLEMENTAL MATERIAL PROVIDED TO PATIENT: None REFERRAL (RECOMMENDATION): None Electronically Signed By: Howie Jenkins RN [facility] OPERATIVE NOon 03-16-2020 OPERATIVE NO HNO ID: [id number] Author: Cortney Haywood Service: General Surgery Author Type: Physician Type: Operative Report Filed: 03/16/2020 9:49 AM Note Text: [facility] - Operative Report NAILA BELTRAN : 1970 AGE: 49. SEX: F PATIENT TYPE: A HOSP SVC: GENS LOCATION: [facility] ATTENDING PHYSICIAN: Cortney Haywood M.D. CSN NUMBER: [id number] DATE OF SURGERY/PROCEDURE: 03/16/2020 INCISION/PROCEDURE START TIME: 7:56 AM INCISION CLOSE/PROCEDURE END TIME: 9:06 AM PREOPERATIVE DIAGNOSIS: Acute cholecystitis. POSTOPERATIVE DIAGNOSIS: Acute on chronic cholecystitis. SURGEON: Cortney Haywood M.D. HEAD WOOD GRINDER: Resident surgeon, Dr. Lu Luke. SURGERY/PROCEDURE: Laparoscopic cholecystectomy. ANESTHESIA: General endotracheal anesthesia. COMPLICATIONS: None. ESTIMATED BLOOD LOSS: 20 mL. SPECIMENS: Gallbladder. INDICATIONS FOR PROCEDURE: The patient presented with severe abdominal pain. A HIDA scan showed nonvisualization of the gallbladder. OPERATIVE FINDINGS: The gallbladder was densely scarred and adherent to the liver, was packed with stones. DESCRIPTION OF PROCEDURE: The patient was correctly identified in the preoperative holding area. Consent was verified. She was brought to the operating room, where general endotracheal anesthesia was induced. She was prepped and draped in a sterile fashion. A time-out was called prior to incision and she received antibiotics within 30 minutes of incision. We did not give subcu heparin due to an allergy to all heparin and analogues. A time-out was called prior to incision. We began by infiltrating the skin with few mL of 0.25% Marcaine and made a curvilinear supraumbilical incision. We carefully dissected down to the fascia and entered the fascia without difficulty. We placed a 0 Vicryl on a UR6 on either side of the fascia and placed a Li port into the abdomen. We insufflated to 15 mmHg pressure. We placed a 10/30 scope into the abdomen. There was no evidence of any injury upon our entry. We turned our attention to the right upper quadrant. We infiltrated the skin with 2 mL of 0.25% Marcaine, made 2 stab incisions with a 15 blade, and placed two 5 mm ports into the abdomen under direct visualization. We turned our attention to the subxiphoid port. We infiltrated the skin with 2 mL of 0.25% Marcaine, made a stab incision with a 15 blade, and placed a 5 mm port into the abdomen under direct visualization. The gallbladder was very intrahepatic. We carefully retracted the gallbladder cephalad and laterally. It was quite a tedious dissection of the triangle of Calot due to dense adhesions and scarring as well as the gallbladder being packed with stones and difficult to move. Eventually, we were able to identify the cystic duct and both an anterior and posterior branch of the cystic artery. The rest of the cystic plate was completely cleaned. We placed 2 clips on the stay side, 1 on the specimen side on both cystic artery as well as on the cystic duct and transected the cystic duct. We began to carefully take the gallbladder off the gallbladder fossa. Unfortunately, we did have some spillage of stones and bile as we took the gallbladder off the fossa. We placed the gallbladder in an EndoCatch bag, and then spent a tedious amount of time carefully removing every stone and making sure, we placed it in an EndoCatch bag and did not leave any stones behind. We then removed the gallbladder and the stones from the abdomen. We copiously irrigated the abdomen until the effluent came back completely clear. We ensured we had good hemostasis on the liver. She did have some evidence of fatty liver disease. We then removed all of our ports under direct visualization. We closed the umbilical port fascia with a 0 Vicryl on a UR6 in a [id number] fashion. We closed all of our skin incisions with 4-0 Monocryl running subcuticular stitches followed by SureClose. TEACHING SURGEON ATTESTATION: I was scrubbed and present for the entirety of the procedure. Cortney Haywood M.D. CK:[id number] /[id number] Normal [facility] SURGICAL PATHOLOGYon 021 SURGICAL PATHOLOGY Specimen originated from [facility] Specimen #: [id number] Submitting Physician: CORTNEY HAYWOOD MD FINAL DIAGNOSIS Gallbladder, cholecystectomy - Cholelithiasis and reactive lymph node. Becca 03/18/2020 Simran Wolf M.D. (Electronic Signature) SPECIMEN SUBMITTED A: GALLBLADDER CLINICAL DATA BILIARY COLIC; LAPAROSCOPIC CHOLECYSTECTOMY GROSS DESCRIPTION A. Received in formalin designated gallbladder is a gallbladder that measures 7 x 2.5 x 2.5 cm. The serosal surface is pink-knight and ragged with two areas of defect that measure 1 and 1.5 cm in greatest dimension. The areas of defect are located in the body and fundus of the gallbladder. The cystic duct measures 0.4 cm in length and 0.2 cm in diameter. Within the gallbladder are multiple knight multifaceted calculi that range from 0.5 to 1 cm in greatest dimension and aggregate to 3 cm. The calculi are not compacting the cystic duct. Also within the gallbladder is knight viscous bile. The gallbladder mucosa is knight and trabeculated with a wall thickness of 0.1 cm. Veterinary Radiologist sections are submitted in one cassette. WE/nathan 03/16/2020 Gross examination performed at [facility], [address] [address] Date of Report: 03/18/2020 Date of Procedure: 03/16/2020 Date of Receipt: 03/16/2020 Submitted by: CORTNEY HAYWOOD MD Location: [facility] Diagnostic interpretation performed at [facility], [address] [place] [address]. CLIA Number: [id number] [facility] HOSPon 02-13-2020 HOSP Patient:Naila Beltran MRN: Height:5' 6 [pt rpt[(1.676 m) Weight:256 lb (116.121 kg) Outpatient Medications as of 03/16/20: ZENPEP 40,000-126,000- 168,000 unit cpDR docusate sodium (COL-RITE) 100 mg capsule cetirizine (ZYRTEC) 10 mg tablet dicyclomine (BENTYL) 20 mg tablet Fluticasone Furoate 27.5 mcg/actuation nasal spray fluticasone-vilanter ol (BREO ELLIPTA) 200-25 mcg/dose inhaler pantoprazole DR (PROTONIX) 40 mg tablet sertraline (ZOLOFT) 100 mg tablet sitaGLIPtin-metFORMI N (JANUMET) 50-500 mg per tablet ELIQUIS 2.5 mg tab tab(s) aspirin 81 mg chewable tablet albuterol HFA (VENTOLIN HFA) 90 mcg/actuation inhaler levETIRAcetam XR (KEPPRA XR) 500 mg 24 hr tablet busPIRone HCl 30 mg tablet metoprolol tartrate, short acting, (LOPRESSOR) 25 mg tablet atorvastatin (LIPITOR) 40 mg tablet Comp.Stocking,Thigh, Long,X-Lrg misc pregabalin (LYRICA) 150 mg capsule Multivitamins ORAL Chew Admission/Clinic Administered Medications as of 03/16/20: lidocaine 10 mg/mL (1 %) 1-2 mg injection (XYLOCAINE) lactated ringers infusion clindamycin iv piggyback 900 mg in D5W 50 mL (CLEOCIN) lactated ringers infusion Problem List: Hypercoagulable state (HCC) [D68.59] Vascular disease [I99.9] Anticoagulated [Z79.01] HLD (hyperlipidemia) [E78.5] 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] Type 2 diabetes mellitus without complication, without long-term current use of insulin (HCC) [E11.9] GERD (gastroesophageal reflux disease) [K21.9] Personal history of DVT (deep vein thrombosis) [Z86.718] Fatty liver [K76.0] Morbid obesity (HCC) [E66.01] Seizures (HCC) [R56.9] SOB (shortness of breath) [R06.02] PVD (peripheral vascular disease) ([facility]) [I73.9] 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] History of COVID-19 [Z86.16] Obesity, Class III, BMI >= 40 [E66.01] Allergies: Aspirin Heparin Analogues Keflex [Cephalexin] Penicillin G Date Verified: 03/16/20 Lab Values No results within the last 30 days for the following basenames: K,HCT Progress Notes ([facility]): Luz Rod Pss 03/03/2020 2:58 PM Signed Patient called and said that her A1C is 7.7 she has other results And her Endo doctor told her to let Dr Haywood know and she if it is okay for her to have surgery. Ph.[phone] Vidya Houston, RN, RN 03/03/2020 3:09 PM Signed Returned patient's phone call. There was no answer so I left a voicemail message asking if she could have her semiautomatic stitcher operator fax the lab results to our office. Normal [facility] Vital Signs Date Time Vital Sign Value Performing Clinician Belinda garcia 09-10-2024 11:12-0400 Body height 167.6 cm Cece Hannon PA-C Work Phone: [facility] 09-10-2024 11:12-0400 Body mass index (BMI) [Ratio] 39.06 kg/m2 Cece Hannon PA-C Work Phone: [facility] 09-10-2024 11:12-0400 Body temperature 97.5 [degF] Cece Hannon PA-C Work Phone: [facility] 09-10-2024 11:12-0400 Body weight 109.77 kg Cece Hannon PA-C Work Phone: [facility] 09-10-2024 11:12-0400 Diastolic blood pressure 72 mm[Hg] Cece Hannon [facility]-C [facility] 09-10-2024 11:12-0400 Heart rate 55 /min Cece Hannon PA-C Work Phone: [facility] 09-10-2024 11:12-0400 SaO2% (BldA) [Mass fraction] 97 % Cece Hannon PA-C Work Phone: [facility] 09-10-2024 11:12-0400 Systolic blood pressure 118 mm[Hg] Cece Hannon PA-C [facility] 08-27-2024 13:12-0400 Body height 167.6 cm Cece Hannon PA-C [facility] 08-27-2024 13:12-0400 Body mass index (BMI) [Ratio] 39.06 kg/m2 Cece Hannon PA-C Work Phone: [facility] 08-27-2024 13:12-0400 Body temperature 97.5 [degF] Cece Hannon PA-C Work Phone: [facility] 08-27-2024 13:12-0400 Body weight 109.77 kg Cece Hannon PA-C Work Phone: [facility] 08-27-2024 13:12-0400 Diastolic blood pressure 70 mm[Hg] Cece Hannon PA-C Work Phone: [facility] 08-27-2024 13:12-0400 Heart rate 55 /min Cece Hannon PA-C Work Phone: [facility] 08-27-2024 13:12-0400 SaO2% (BldA) [Mass fraction] 95 % Cece Hannon PA-C Work Phone: [facility] 08-27-2024 13:12-0400 Systolic blood pressure 122 mm[Hg] Cece Hannon PA-C Work Phone: [facility] 06-24-2024 08:31-0400 Blood Pressure Location Yanni Cesario [facility] 06-24-2024 08:31-0400 Diastolic blood pressure 70 mm[Hg] Valeriejuhi Cesario [facility] 06-24-2024 08:31-0400 Heart rate 55 /min Mohjuhi Cesario [facility] 06-24-2024 08:31-0400 Respiratory rate 18 /min Yanni Cesario [facility] 06-24-2024 08:31-0400 SaO2% (BldA) [Mass fraction] 97 % Valeriejuhi Cesario [facility] 06-24-2024 08:31-0400 Systolic blood pressure 124 mm[Hg] Yanni Brittan [facility] 06-10-2024 10:20-0400 Body height 170.2 cm Stef Michele MD Work Phone: [facility] 06-10-2024 10:20-0400 Body mass index (BMI) [Ratio] 37.47 kg/m2 Stef Michele MD Work Phone: [facility] 06-10-2024 10:20-0400 Body temperature 97.2 [degF] Stef Michele MD Work Phone: [facility] 06-10-2024 10:20-0400 Body weight 108.54 kg Stef Michele MD Work Phone: [facility] 06-10-2024 10:20-0400 Diastolic blood pressure 77 mm[Hg] Stef Michele MD Work Phone: [facility] 06-10-2024 10:20-0400 Heart rate 72 /min Stef Michele MD Work Phone: [facility] 06-10-2024 10:20-0400 Respiratory rate 16 /min Stef Michele MD Work Phone: [facility] 06-10-2024 10:20-0400 SaO2% (BldA) [Mass fraction] 95 % Stef Michele MD Work Phone: [facility] 06-10-2024 10:20-0400 Systolic blood pressure 119 mm[Hg] Stef Michele MD Work Phone: [facility] 04-18-2024 10:40-0500 Body height 167.6 cm Cece Hannon PA-C Work Phone: [employer] 04-18-2024 10:40-0500 Body mass index (BMI) [Ratio] 39.06 kg/m2 Cece Hannon PA-C Work Phone: [employer] 04-18-2024 10:40-0500 Body temperature 97.3 [degF] Cece [facility]annon PA-C [facility] 04-18-2024 10:40-0500 Body weight 109.77 kg Cece Hannon PA-C [facility] 04-18-2024 10:40-0500 Diastolic blood pressure 82 mm[Hg] Cece Hannon PA-C Work Phone: [facility] 04-18-2024 10:40-0500 Heart rate 76 /min Cece Hannon PA-C [facility] Phone[facility] 04-18-2024 10:40-0500 SaO2% (BldA) [Mass fraction] 96 % Cece Hannon PA-C Work Phone[facility] 04-18-2024 10:40-0500 Systolic blood pressure 136 mm[Hg] Cece Hannon PA-C Work Phone: [facility] 08-22-2023 11:17-0400 Heart rate 51 /min Martine Bowling MD Work Phone: [facility] 08-22-2023 11:17-0400 Respiratory rate 19 /min Martine Bowling MD Work Phone: [facility] 08-22-2023 11:17-0400 SaO2% (BldA) [Mass fraction] 95 % Martine Bowling MD Work Phone: [facility] 08-22-2023 11:15-0400 Diastolic blood pressure 67 mm[Hg] Martine Bowling MD Work Phone: [facility] 08-22-2023 11:15-0400 Systolic blood pressure 112 mm[Hg] Martine Bowling MD Work Phone: [facility] 08-22-2023 10:25-0400 Body temperature 97.5 [degF] Martine Bowling MD Work Phone: [facility] 08-09-2023 13:33-0400 Body height 170.2 cm [facility] Comment on above: patient reported 08-09-2023 13:33-0400 Body mass index (BMI) [Ratio] 38.37 kg/m2 [facility] 08-09-2023 13:33-0400 Body weight 111.13 kg [facility] Comment on above: patient reported 08-09-2023 13:33-0400 Heart rate 89 /min [facility] Comment on above: apple watch 08-02-2023 09:28-0400 Body height 170.2 cm Martine Bowling MD Work Phone: [facility] 08-02-2023 09:28-0400 Body mass index (BMI) [Ratio] 39.26 kg/m2 Martine Bowling MD Work Phone: [facility] 08-02-2023 09:28-0400 Body weight 113.7 kg Martine Bowling MD Work Phone: [facility] 08-02-2023 09:28-0400 Diastolic blood pressure 69 mm[Hg] Martine Bowling MD Work Phone: [facility] 08-02-2023 09:28-0400 Heart rate 50 /min Martine Bowling MD Work Phone: [facility] 08-02-2023 09:28-0400 Systolic blood pressure 146 mm[Hg] Martine Bolwing MD Work Phone: [facility] 08-02-2023 09:27-0400 Body height 170.2 cm Veronica Quiles DO Work Phone: [facility] 08-02-2023 09:27-0400 Body mass index (BMI) [Ratio] 39.26 kg/m2 Veronica Quiles DO Work Phone: [facility] 08-02-2023 09:27-0400 Body weight 113.7 kg Veronica Quiles DO Work Phone: [facility] 08-02-2023 09:27-0400 Diastolic blood pressure 69 mm[Hg] Veronica Richardsone DO Work Phone: [facility] 08-02-2023 09:27-0400 Heart rate 50 /min Veronica Quiles DO Work Phone: [facility] 08-02-2023 09:27-0400 Systolic blood pressure 148 mm[Hg] Veronica Quiles DO Work Phone: [facility] 07-25-2023 08:50-0400 Diastolic blood pressure 74 mm[Hg] PA-C Cece Hannon Work Phone: [facility] 07-25-2023 08:50-0400 Heart rate 57 /min PA-C Cece Hannon Work Phone: [facility] 07-25-2023 08:50-0400 Respiratory rate 18 /min PA-C Cece Hannon Work Phone: [facility] 07-25-2023 08:50-0400 SaO2% (BldA) [Mass fraction] 95 % PA-C Cece Hannon Work Phone: [facility] 07-25-2023 08:50-0400 Systolic blood pressure 126 mm[Hg] PA-C Cece Hannon Work Phone: [facility] 07-25-2023 08:06-0400 Inhaled oxygen flow rate 3 L/min PA-C Cece Hannon Work Phone: [facility] 07-25-2023 07:11-0400 Body height 170.18 cm PA-C Cece Hannon Work Phone: [facility] 07-25-2023 07:11-0400 Body weight 90.71 kg PA-C Cece Hannon Work Phone: [facility] 07-05-2023 10:48-0400 Body height 170.18 cm [facility] 07-05-2023 10:48-0400 Body mass index (BMI) [Ratio] 37.9 kg/m2 [facility] 07-05-2023 10:48-0400 Body weight 109.76 kg [facility] 06-13-2023 15:03-0400 Body height 165.1 cm Gardenia Edvin PA-C Work Phone: [facility] 06-13-2023 15:03-0400 Body temperature 97.5 [degF] Gardenia Edvin PA-C Work Phone: [facility] 06-13-2023 15:03-0400 Body weight 115.8 kg Gardenia Edvin PA-C Work Phone: [facility] 06-13-2023 15:03-0400 Diastolic blood pressure 78 mm[Hg] Gardenia Edvin PA-C Work Phone: [facility] 06-13-2023 15:03-0400 Heart rate 65 /min Gardenia Edvin PA-C Work Phone: [facility] 06-13-2023 15:03-0400 Respiratory rate 16 /min Gardenia Edvin PA-C Work Phone: [facility] 06-13-2023 15:03-0400 SaO2% (BldA) [Mass fraction] 97 % Gardenia Edvin PA-C Work Phone: [facility] 06-13-2023 15:03-0400 Systolic blood pressure 146 mm[Hg] Gardenia Edvin PA-C Work Phone: [facility] 02-14-2023 19:27-0500 Diastolic blood pressure 92 mm[Hg] PA-C Cece Hannon Work Phone: [facility] 02-14-2023 19:27-0500 Heart rate 66 /min PA-C Cece Hannon Work Phone: [facility] 02-14-2023 19:27-0500 Respiratory rate 20 /min PA-C Cece Hannon Work Phone: [facility] 02-14-2023 19:27-0500 SaO2% (BldA) [Mass fraction] 98 % PA-C Cece Hannon Work Phone: [facility] 02-14-2023 19:27-0500 Systolic blood pressure 139 mm[Hg] LINDA Hannon Work Phone: [facility] 02-14-2023 17:49-0500 Body height 170.18 cm LINDA Hannon Work Phone: [facility] 02-14-2023 17:49-0500 Body temperature 97.7 [degF] LINDA Hannon Work Phone: [facility] 02-14-2023 17:49-0500 Body weight 115 kg LINDA Hannon Work Phone: [facility] 01-30-2023 14:45-0500 Body height 170.18 cm Imad Asaad Other [employer] Other 01-30-2023 14:45-0500 Body mass index (BMI) [Ratio] 40.33 kg/m2 Imad Asaad Other [employer] Other 01-30-2023 14:45-0500 Body weight 116.8 kg Imad Asaad Other [employer] Other 01-30-2023 14:45-0500 Diastolic blood pressure 78 mm[Hg] Imad Asaad Other [employer] Other 01-30-2023 14:45-0500 Systolic blood pressure 125 mm[Hg] Imad Asaad Other [employer] Other 11-09-2022 11:00-0400 Body height 170.18 cm Tom Torres Other [employer] Other 11-09-2022 11:00-0400 Body mass index (BMI) [Ratio] 39.93 kg/m2 Tom Torres Other [facility] [employer] Other 11-09-2022 11:00-0400 Body weight 115.67 kg Tom Torres Other [employer] Other 06-03-2022 14:32-0400 Body height 165.1 cm Checo Spivey MD Work Phone: [facility] 06-03-2022 14:32-0400 Body temperature 97.3 [degF] Checo Spivey MD Work Phone: [facility] 06-03-2022 14:32-0400 Body weight 120.47 kg Checo Spivey MD Work Phone: [facility] 06-03-2022 14:32-0400 Diastolic blood pressure 76 mm[Hg] Checo Spivey MD Work Phone: [facility] 06-03-2022 14:32-0400 Heart rate 62 /min Checo Spivey MD Work Phone: [facility] 06-03-2022 14:32-0400 Respiratory rate 16 /min Checo Spivey MD Work Phone: [facility] 06-03-2022 14:32-0400 SaO2% (BldA) [Mass fraction] 98 % Checo Spivey MD Work Phone: [facility] 06-03-2022 14:32-0400 Systolic blood pressure 137 mm[Hg] Checo Spivey MD Work Phone: [facility] 03-25-2022 12:56-0500 Body height 165.1 cm Shiva Garcia Jr., DO Work Phone: [facility] 03-25-2022 12:56-0500 Body weight 120.66 kg Shiva Garcia Jr., DO Work Phone: [facility] 03-25-2022 12:56-0500 Diastolic blood pressure 92 mm[Hg] Shiva Garcia Jr., DO Work Phone: [facility] 03-25-2022 12:56-0500 Heart rate 80 /min Shiva Garcia Jr., DO Work Phone: [facility] 03-25-2022 12:56-0500 SaO2% (BldA) [Mass fraction] 95 % Shiva Garcia Jr., DO Work Phone: [facility] 03-25-2022 12:56-0500 Systolic blood pressure 131 mm[Hg] Shiva Garcia Jr., DO Work Phone: [facility] 02-10-2022 17:14-0500 Body height 170.18 cm PA-C Cece Hannon Work Phone: [facility] 02-10-2022 17:14-0500 Body temperature 97.6 [degF] PA-C Cece Hannon Work Phone: [facility] 02-10-2022 17:14-0500 Body weight 99.95 kg PA-C Cece Hannon Work Phone: [facility] 02-10-2022 17:14-0500 Diastolic blood pressure 96 mm[Hg] PA-C Cece Hannon Work Phone: [facility] 02-10-2022 17:14-0500 Heart rate 76 /min PA-C Cece Hannon Work Phone: [facility] 02-10-2022 17:14-0500 Respiratory rate 18 /min PA-C Cece Hannon Work Phone: [facility] 02-10-2022 17:14-0500 SaO2% (BldA) [Mass fraction] 95 % PA-C Cece Hannon Work Phone: [facility] 02-10-2022 17:14-0500 Systolic blood pressure 141 mm[Hg] PA-C Cece Hannon Work Phone: [facility] 01-06-2022 13:57-0500 Blood Pressure Location Yanni Nassar [facility] 01-06-2022 13:57-0500 Diastolic blood pressure 78 mm[Hg] Yanni Nassar [facility] 01-06-2022 13:57-0500 Heart rate 68 /min Yanni Nassar [facility] 01-06-2022 13:57-0500 SaO2% (BldA) [Mass fraction] 96 % Yanni Nassar [facility] 01-06-2022 13:57-0500 Systolic blood pressure 114 mm[Hg] Yanni Nassar [facility] 05-27-2021 11:45-0400 Body height 170.18 cm Shiva Scotshanthi Other [employer] Other 05-27-2021 11:45-0400 Body mass index (BMI) [Ratio] 39.93 kg/m2 Shiva Scotshanthi Other [employer] Other 05-27-2021 11:45-0400 Body weight 115.67 kg Shiva Garcia Other [employer] Other 05-27-2021 11:45-0400 Diastolic blood pressure 77 mm[Hg] Shiva Scotshanthi Other [employer] Other 05-27-2021 11:45-0400 Systolic blood pressure 122 mm[Hg] Shiva Garcia Other [employer] Other 05-27-2021 09:21-0400 Body height 167.6 cm Gardenia Gupta PA-C Work Phone: [facility] 05-27-2021 09:21-0400 Body temperature 98.1 [degF] Gardenia Edvin PA-C Work Phone: [facility] 05-27-2021 09:21-0400 Body weight 115.76 kg Gardenia Edvin PA-C Work Phone: [facility] 05-27-2021 09:21-0400 Diastolic blood pressure 79 mm[Hg] Gardenia Edvin PA-C Work Phone: [facility] 05-27-2021 09:21-0400 Heart rate 66 /min Gardenia Edvin PA-C Work Phone: [facility] 05-27-2021 09:21-0400 Respiratory rate 16 /min Gardenia Edvin PA-C Work Phone: [facility] 05-27-2021 09:21-0400 SaO2% (BldA) [Mass fraction] 96 % Gardenia Edvin PA-C Work Phone: [facility] 05-27-2021 09:21-0400 Systolic blood pressure 145 mm[Hg] Gardenia Edvin PA-C Work Phone: [facility] 02-04-2021 12:00-0500 Body height 170.18 cm Shiva Garcia Other [employer] Other 02-04-2021 12:00-0500 Body mass index (BMI) [Ratio] 38.37 kg/m2 Shiva Garcia Other [employer] Other 02-04-2021 12:00-0500 Body weight 111.13 kg Shiva Garcia Other [employer] Other Encounters Encounter Date Encounter Type Care Provider Facility Start: 09-25-2024 ambulatory Cece Hannon PAC Faci lity:[facility] Start: 09-10-2024 End: 09-10-2024 Office outpatient visit 25 minutes Cece Hannon PA-C Work Phone: [facility]Haider Adamson MD Comment on above: Type 2 diabetes marianna itus with hyperglycemia, without long-term current use of insulin ([facility]) (Primary Dx); Cyst of right kidney; Mixed hyperlipidemia; BMI 40.0-44.9, adult ([facility]); Glucosuria Start: 09-10-2024 End: 09-11-2024 Refill Cece Hannon PA-C Work Phone: [facility]/Haider Adamson MD Comment on above: Mixed hyperlipidemia Start: 09-05-2024 End: 09-05-2024 ambulatory Cece Hannon PAC Facility:[facility] Start: 08-29-2024 End: 08-29-2024 ambulatory Cece Hannon PAC Facility:[facility] Start: 08-27-2024 End: 08-27-2024 Office outpatient visit 15 minutes Cece Hannon PA-C Work Phone: [facility]/Haider Adamson MD Comment on above: Burning with urinati on (Primary Dx); Dysuria; Proteinuria, unspecified type; Type 2 diabetes mellitus without complication, without long-term current use of insulin ([facility]) Start: 08-27-2024 End: 08-27-2024 ambulatory CECE HANNON [facility] Start: 07-26-2024 End: 07-26-2024 Telephone encounter [facility]Haider Adamson MD Comment on above: Appointment due Start: 07-01-2024 End: 07-01-2024 Telephone encounter [facility]Haider Adamson MD Comment on above: Multiple Needs Start: 07-01-2024 ambulatory MARTINE Trevino lity:[facility] Start: 07-01-2024 End: 07-01-2024 Subsequent hospital visit by physician [facility] Work Phone: [facility] Radiology Molecular Comment on above: Nausea [R11.0] Start: 06-28-2024 End: 06-28-2024 Telephone encounter [facility] Radiol ogy Molecular Comment on above: Radiology NM Start: 06-27-2024 End: 07-02-2024 Refill Cece Hannon PA-C Work Phone: [facility]/Haider Adamson MD Start: 06-24-2024 End: 06-24-2024 ambulatory XXXX NONE Facility:[facility] Start: 06-24-2024 End: 06-24-2024 Patient encounter procedure Yanni Nassar [facility] Start: 06-18-2024 Emergency department patient visit [facility] Facility:[facility] Start: 06-10-2024 End: 06-10-2024 Office outpatient visit 15 minutes Stef Michele MD Work Phone: Hematology/Oncology Comment on above: Hypercoagulable stat e (HCC) (Primary Dx) Start: 06-10-2024 End: 06-10-2024 ambulatory STEF MICHELE Facility:[facility] Start: 05-23-2024 End: 05-24-2024 ambulatory MD Yanni Nassar Facility:[facility] Start: 05-23-2024 End: 05-24-2024 Patient encounter procedure Yanni Nassar [facility] Start: 04-29-2024 End: 05-01-2024 Telephone encounter Martine Bowling MD Work Phone: Gastroenterology Comment on above: Orders Start: 04-22-2024 End: 04-22-2024 Refill Cece Hannon PA-C Work Phone: [facility]/Haider Adamson MD Start: 04-18-2024 End: 04-18-2024 ambulatory CECE HANNON [facility] Start: 04-18-2024 End: 04-18-2024 Office outpatient visit 25 minutes Cece Hannon PA-C Work Phone: [facility]/Haider Adamson MD Comment on above: Type 2 diabetes marianna itus without complication, without long- term current use of insulin ([facility]) (Primary Dx); FERNY (generalized anxiety disorder); Acute non-recurrent maxillary sinusitis; Hereditary coagulation factor deficiency ([facility]); SVT (supraventricular tachycardia) ([facility]); Gastroparesis due to DM ([facility]) ; Emotional instability ([facility]); 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rder ([facility]); Type 2 diabetes mellitus with hyperglycemia, without long-term current use of insulin ([facility]); Aneurysm of ascending aorta without rupture ([facility] Seizure disorder ([facility]); Hypercoagulable state ([facility]); BMI 40.0-44.9, adult ([facility]) Start: 04-18-2024 End: 04-18-2024 ambulatory CECEByron HANNON [facility] Start: 04-04-2024 End: 04-04-2024 ambulatory HAIDER ADAMSON Facility:[facility] Start: 03-27-2024 End: 03-27-2024 Refill Cece Hannon PA-C Work Phone: [facility]Haider Adamson MD Comment on above: FERNY (generalized anx iety disorder) Start: 03-11-2024 End: 03-11-2024 Refill Cece Hannon PA-C Work Phone: [facility]Haider Adamson MD Start: 02-29-2024 Emergency department patient visit Darin Murphy Facility:[facility] Start: 02-28-2024 End: 02-28-2024 Refill Cece Hannon PA-C Work Phone: [facility]Haider Adamson MD Comment on above: FERNY (generalized anx iety disorder) Start: 02-26-2024 End: 02-29-2024 Telephone encounter Cece Hannon PA-C Work Phone: [facility]/Haider Adamson MD Start: 02-25-2024 Emergency department patient visit Kevin Gracia Facility:[facility] Start: 02-01-2024 End: 02-01-2024 Telephone encounter Adele Hahn RT(R) [facility] Radiology Molecular Comment on above: Radiology NM Start: 01-25-2024 End: 01-25-2024 Emergency department patient visit Nehemiah Cummings Facility:[facility] Start: 01-15-2024 End: 01-15-2024 ambulatory [facility] Work Phone: Start: 01-15-2024 End: 01-15-2024 Patient encounter procedure [facility] Work Phone: Start: 01-04-2024 End: 01-04-2024 ambulatory [facility] Start: 12-30-2023 End: 12-31-2023 Emergency department patient visit Melvin K Ariana Facility:[facility] Start: 12-20-2023 End: 12-20-2023 ambulatory [facility] Start: 12-19-2023 End: 12-19-2023 ambulatory [facility] Start: 11-06-2023 End: 11-06-2023 Telephone encounter Martine Rodriguez RT(R) [facility] Radiol ogy Molecular Start: 10-18-2023 End: 10-18-2023 Admission to same day surgery center Martine Bowling MD Work Phone: General Surgery Comment on above: Nausea (Primary Dx); Gastroparesis due to DM (HCC) (HCC) Start: 10-18-2023 End: 10-18-2023 Telemedicine consultation with patient Martine Bowling MD Work Phone: General Surgery Start: 10-18-2023 End: 10-18-2023 ambulatory MARTINE BOWLING Facility:[facility] Start: 10-11-2023 ambulatory Ambar Nuno icmikhail [facility] Work Phone: [facility] Comment on above: Eliquis Refill Request Start: 10-11-2023 E-mail encounter vanessa Vang [facility] Work Phone: [facility] Start: 08-22-2023 ambulatory MARTINE Anders ty:[facility] Start: 08-22-2023 End: 08-22-2023 Subsequent hospital visit by physician Martine Bowling MD Work Phone: [facility] Comment on above: Gastroparesis due to DM (HCC) (HCC) [E11.43, K31.84] Start: 08-18-2023 Telephone encounter Martine Urbano MD Work Phone: General Surgery Comment on above: User Interface Artist - O ther (preprocedue call) Start: 08-17-2023 ambulatory Martine breaux MD Work Phone: [facility] Start: 08-16-2023 Telephone encounter Casey farris PA-C Work Phone: Pre Anesthesia Comment on above: Preparations For Ilene ann Start: 08-10-2023 ambulatory Veronica S Clin e DO Work Phone: Gastroenterology Comment on above: EGG RESULTS Start: 08-10-2023 Patient encounter procedure Veronica S Quiles DO Work Phone: Gastroenterology Start: 08-10-2023 Telephone encounter Checo jordan MD Work Phone: Pre Anesthesia Comment on above: Preparations For Ilene ann Start: 08-09-2023 Encounter for other preprocedural examination CAROL OSEI [facility] Start: 08-09-2023 End: 08-09-2023 [facility] Pre Anesthesia Comment on above: Preop examination (P rimary Dx); Neck pain; Ascending aorta dilation (HCC); Gastroesophageal reflux disease, unspecified whether esophagitis present; Gastroparesis due to DM (HCC) (HCC); Hereditary coagulation factor deficiency (HCC); Hyperlipidemia, unspecified hyperlipidemia type; Obesity, Class II, BMI 35-39.9; SOB (shortness of breath); PVD (peripheral vascular disease) (HCC); History of DVT (deep vein thrombosis); Diabetes mellitus type 2 (HCC); Anxiety; Anticoagulated; Seizure disorder (HCC); PTSD (post-traumatic stress disorder) Start: 08-09-2023 End: 08-09-2023 Preprocedural examination done [facility] Work Phone: Start: 08-02-2023 End: 08-02-2023 ambulatory VERONICA QUILES Facility:[facility] Start: 08-02-2023 End: 08-02-2023 ambulatory VERONICA QUILES Facility:[facility] Start: 08-02-2023 End: 08-02-2023 Patient encounter procedure Veronica Quiles DO Work Phone: Gastroenterology Comment on above: Gastroparesis (Prima ry Dx); Irritable bowel syndrome with both constipation and diarrhea Gastroparesis due to DM (HCC) (HCC) (Primary Dx) Gastroparesis (Prima ry Dx) Gastroparesis (Prima ry Dx); Type 2 diabetes mellitus without complication, without long-term current use of insulin ([facility]) Start: 07-25-2023 Telephone encounter Veronica Quiles DO Work Phone: Gastroenterology Comment on above: [facility]; chart review) Start: 07-25-2023 Non-patient / Non-visit LINDA Hannon Work Phone: [facility] Work Phone: Start: 07-25-2023 End: 07-25-2023 Admission to same day surgery center LINDA Hannon Work Phone: [facility] Work Phone: Start: 07-25-2023 End: 07-25-2023 ambulatory LINDA Hannon Work Phone: [facility] Work Phone: Start: 07-05-2023 End: 07-05-2023 ambulatory [facility] Work Phone: Start: 07-05-2023 End: 07-05-2023 Patient encounter procedure [facility] Work Phone: Start: 06-13-2023 End: 06-13-2023 Office outpatient visit 15 minutes Gardenia Gupta PA-C Work Phone: Hematology/Oncology Comment on above: Hypercoagulable stat e (HCC) (Primary Dx); Hereditary coagulation factor deficiency (HCC); 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rder (HCC); Obesity, Class III, BMI 40-49.9 (morbid obesity) (HCC); Gastroparesis due to DM (HCC) (HCC) Start: 06-13-2023 End: 06-13-2023 ambulatory GARDENIA GUPTA Facility:[facility] Start: 05-18-2023 End: 05-18-2023 Subsequent hospital visit by physician [facility] Work Phone: [facility] Radiology Molecular Comment on above: Gastroparesis [K31.8 4] Start: 05-17-2023 Telephone encounter Yumiko Mclain T(R) [facility] Radiology Molecular Comment on above: Radiology NM (Appoin tment reminder.) Start: 03-16-2023 End: 03-16-2023 ambulatory [facility] Start: 02-14-2023 End: 02-14-2023 Emergency department patient visit LINDA Hannon Work Phone: [facility] Work Phone: Start: 01-30-2023 End: 01-30-2023 ambulatory Imad Asaad Other [employer] Other Start: 01-30-2023 Patient encounter procedure Imad Asaad [facility] Start: 11-09-2022 End: 11-09-2022 ambulatory Tom Torres Other [employer] Other Start: 11-09-2022 Office outpatient ne w 30 minutes Tom Torres [facility] Start: 06-03-2022 End: 06-03-2022 ambulatory Checo Spivey MD Work Phone: Hematology/Oncology Comment on above: Hypercoagulable stat e (HCC) (Primary Dx) Start: 06-03-2022 End: 06-03-2022 Patient encounter procedure Checo Spivey MD Work Phone: [facility] Start: 06-03-2022 Refill Gardenia KIM-C Work Phone: Hematology/Oncology Comment on above: Refill Request Start: 03-25-2022 End: 03-25-2022 Patient encounter procedure Shiva Garcia DO Work Phone: Gastgroenterology Comment on above: Gastroparesis due to DM (HCC) (Primary Dx); Generalized abdominal pain; Gastroesophageal reflux disease with esophagitis without hemorrhage; Irritable bowel syndrome with both constipation and diarrhea Start: 02-10-2022 End: 02-10-2022 Emergency department patient visit LINDA Hannon Work Phone: [facility] Start: 01-06-2022 End: 01-06-2022 Patient encounter procedure Yanni Nassar [facility] Start: 12-16-2021 End: 12-16-2021 ambulatory LINDA Hannon Work Phone: [facility] Work Phone: Start: 12-16-2021 End: 12-16-2021 Patient encounter procedure LINDA Hannon Work Phone: [facility] [place] Start: 11-05-2021 End: 12-03-2021 Pre-admission assessment Yanni Nassar [facility] Start: 09-28-2021 End: 09-28-2021 ambulatory Shiva Garcia Other [employer] Other Start: 09-28-2021 Telephone encounter Shiva Garcia [facility] Start: 06-23-2021 End: 06-23-2021 ambulatory Shiva Radha Other [employer] Other Start: 06-23-2021 Telephone encounter Shiva Garcia [facility] Start: 06-21-2021 End: 06-21-2021 ambulatory Shiva Radha Other [employer] Other Start: 06-21-2021 Telephone encounter Shiva Radha [facility] Start: 06-15-2021 End: 06-15-2021 ambulatory Shiva Radha Other [employer] Other Start: 06-15-2021 Telephone encounter Shiva Scotshanthi [facility] Start: 06-03-2021 End: 06-03-2021 ambulatory Shiva Scotshanthi Other [employer] Other Start: 06-03-2021 Telephone encounter Shiva Scotshanthi [facility] Start: 05-27-2021 Office outpatient vi sit 25 minutes Shiva Garcia [facility] Start: 05-27-2021 End: 05-27-2021 ambulatory Gardenia Gupta PA-C Work Phone: Hematology/Oncology Comment on above: Hypercoagulable stat e (HCC) (Primary Dx); Vascular disease Start: 05-27-2021 End: 05-27-2021 Patient encounter procedure Gardenia Gupta PA-C Work Phone: [place] Start: 02-04-2021 End: 02-04-2021 ambulatory Shiva Garcia Other [facility] Other Start: 02-04-2021 Office outpatient vi sit 25 minutes Shvia Garcia [facility] Start: 01-18-2021 (Procedure) Short Adan Julio [facility] Start: 01-18-2021 End: 01-18-2021 ambulatory Adan Julio Other [facility] Other Start: 01-06-2021 End: 01-06-2021 ambulatory Adan Julio Other [facility] Other Start: 01-06-2021 Office outpatient vi sit 25 minutes Adan Julio [facility] Start: 09-18-2020 End: 09-19-2020 ambulatory REFERRED SELF Facility:[facility] Start: 09-02-2020 End: 09-03-2020 ambulatory LAYNE MAX Facility: Procedures Date Procedure Procedure Detail Performing Clinician Start: 09-10-2024 Urnls dip stick/tabl et rgnt non-auto w/o micrscp Cece Hannon PA-C Work Phone: Start: 08-27-2024 Urnls dip stick/tabl et rgnt non-auto w/o micrscp Cece Hannon PA-C Work Phone: Start: 07-01-2024 Gastric emptying milton ging study Martine Bowling MD Work Phone: Start: 04-18-2024 Follow-up visit Follow-up CECE HANNON Start: 04-18-2024 Microalbumin [Mass/v olume] in Urine by Test strip Cece Hannon PA-C Work Phone: Start: 01-02-2024 Adult depression scr eening assessment Cece Hannon PA-C Work Phone: Start: 08-22-2023 Gluc bld gluc mntr d ev cleared fda spec home use Martine Bowling MD Work Phone: Start: 08-22-2023 Esophagoscp rig spann soral hypopharynx crv esoph Martine Bowling MD Work Phone: Start: 08-22-2023 Gluc bld gluc mntr d ev cleared fda spec home use Martine Bowling MD Work Phone: Start: 07-25-2023 Radiofrequency destr uction of peripheral nerve PA-C Cece Hannon Work Phone: Start: 06-28-2023 Microalbumin [Mass/v olume] in Urine by Test strip Cece Hannon PA-C Work Phone: Start: 02-14-2023 Plain chest X-ray PA-C Cece Hannon Work Phone: Start: 12-16-2021 Duplex scan of lower limb veins PA-C Cece Hannon Work Phone: Start: 05-27-2021 Mammography Cece rodriguez PA-C Work Phone: Start: 11-15-2020 Adult depression scr eening assessment Gardenia Caldweller PA-C Work Phone: Start: 11-21-2018 Mammography Gardenia Caldwell tati PA-C Work Phone: [place] [employer] Yanni Nassar Comment on above: L Stents 2 [employer] Comment on above: Nicole gonzalez for DVT Plan of Treatment Date Care Activity Detail Author Start: 09-10-2025 Adult BMI Screening Adult BMI Screening [facility] Start: 09-10-2025 Tobacco Screening Tobacco Screening [facility] Start: 08-27-2025 Adult BMI Screening Adult BMI Screening [facility] Start: 08-27-2025 Tobacco Screening Tobacco Screening [facility] Start: 06-10-2025 End: 09-09-2025 CBC W Auto Differential panel - Blood COMPLETE BLOOD COUNT AND DIFFERENTIAL Lab Routine Hypercoagulable state (HCC) Expected: 06/10/2025 (Approximate), Expires: 09/09/2025 [facility] Work Phone: Comment on above: Expected: 06/10/2025 (Approximate), Expi res: 09/09/2025 Start: 06-10-2025 End: 09-09-2025 Comprehensive metabolic 2000 panel - Serum or Plasma COMPREHENSIVE METABOLIC PANEL Lab Routine Hypercoagulable state (HCC) Expected: 06/10/2025 (Approximate), Expires: 09/09/2025 [facility] Comment on above: Expected: 06/10/2025 (Approximate), Expi res: 09/09/2025 Start: 06-10-2025 End: 09-09-2025 Fibrin D-dimer FEU [Mass/volume] in Platelet poor plasma D-DIMER Lab Routine Hypercoagulable state (HCC) Expected: 06/10/2025 (Approximate), Expires: 09/09/2025 [facility] Comment on above: Expected: 06/10/2025 (Approximate), Expi res: 09/09/2025 Start: 04-18-2025 Adult BMI Screening Adult BMI Screening [facility] Start: 04-18-2025 Hepatitis B screening Urine Albumin:Creatinine Ratio [facility] Start: 04-18-2025 Tobacco Screening Tobacco Screening [facility] Start: 04-18-2025 Urine screening for protein [facility] Start: 01-03-2025 Adult BMI Screening Adult BMI Screening [facility] Start: 01-03-2025 Tobacco Screening [facility] Start: 01-01-2025 Depression Screening [facility] Start: 12-18-2024 Adult BMI Follow Up Plan Adult [facility] Plan [facility] Start: 12-11-2024 End: 12-11-2024 Patient encounter procedure 12/11/2024 9:45 AM EDT Office Visit [facility]/Haider Adamson MD [address] [phone] Haider Adamson MD [address] [id number] [facility]/Haider Adamson MD Start: 10-28-2024 Influenza vaccination Influenza Vaccine [facility] Start: 10-16-2024 Hemoglobin A1c measurement [facility]C [facility] Start: 09-10-2024 End: 09-10-2024 Patient encounter procedure 09/10/2024 11:00 AM EDT Office Visit [facility]/Haider Adamson MD [address] [place] [phone] Cece Hannon PA-C [address] [place] [address] [facility] Internal [facility]/Haider Adamson MD Start: 08-27-2024 End: 08-27-2025 US Retroperitoneum Ultrasound retroperitoneal complete Imaging Routine Burning with urination Dysuria Proteinuria, unspecified type Expected: 08/27/2024, Expires: 08/27/2025 [facility] Comment on above: Expected: 08/27/2024, Expires: Start: 07-01-2024 End: 07-01-2024 Patient encounter procedure 07/01/2024 8:00 AM EDT Appointment [facility] [address] [place] [address] Weight 245 / Order in EPIC / DX: Nausea [R11.0] Scheduled w/ Patient... [facility] Comment on above: Weight 245 / Order in EPIC / DX: Nausea [R11.0] Scheduled w/ Patient... Start: 06-27-2024 Hepatitis B screening Urine Albumin:Creatinine Ratio [facility] Start: 06-27-2024 Urine screening for protein Urine Microalbumin [facility] Start: 06-12-2024 End: 09-11-2024 CBC W Auto Differential panel - Blood COMPLETE BLOOD COUNT AND DIFFERENTIAL Lab Routine Hypercoagulable state (HCC) Expected: 06/12/2024 (Approximate), Expires: 09/11/2024 [facility] Work Phone: Comment on above: Expected: 06/12/2024 (Approximate), Expi res: 09/11/2024 Start: 06-12-2024 End: 09-11-2024 Comprehensive metabolic 2000 panel - Serum or Plasma COMPREHENSIVE METABOLIC PANEL Lab Routine Hypercoagulable state (HCC) Expected: 06/12/2024 (Approximate), Expires: 09/11/2024 [facility] Work Phone: Comment on above: Expected: 06/12/2024 (Approximate), Expi res: 09/11/2024 Start: 06-11-2024 End: 06-11-2024 Follow-up encounter 06/11/2024 10:45 AM EDT Visit (SP) Office Hematology/Oncology [address] [place] [address] Checo Spivey MD [address] [facility] [place] [address] 1 year follow up Hematology/Oncology Comment on above: 1 year follow up Start: 06-11-2024 End: 06-11-2024 Patient encounter procedure 06/11/2024 10:30 AM EDT Office Visit [facility] [address] [place] [address] 1 year follow up [facility] Comment on above: 1 year follow up Start: 06-10-2024 End: 06-10-2024 Follow-up encounter 06/10/2024 10:30 AM EDT Visit (SP) Office Hematology/Oncology [address] [place] [address] Stef Michele MD [address] [place] [address] RODRICK KAPIL-1 Year Follow Up Labs Hematology/Oncology Comment on above: RODRICK KAPIL-1 Year Follow Up Labs Start: 06-10-2024 End: 06-10-2024 Patient encounter procedure 06/10/2024 10:15 AM EDT Office Visit [facility] [address] [place] [address] RODRICK KAPIL-1 Year Follow Up Labs [facility] Comment on above: RODRICK KAPIL-1 Year Follow Up Labs Start: 05-14-2024 End: 05-14-2024 Patient encounter procedure 05/14/2024 9:30 AM EDT Office Visit [facility]/Haider Adamson MD [address] [place] [phone] Cece Hannon, PA-C [address] [place] [address] [facility]/Haider Adamson MD Start: 04-18-2024 End: 04-18-2024 Patient encounter procedure 04/18/2024 10:00 AM EST [facility]/Haider Adamson MD [address] [place] [phone] Cece Hannon PA-C [address] [place] [address] [facility]/Haider Adamson MD Start: 03-19-2024 End: 03-19-2024 Patient encounter procedure 03/19/2024 9:30 AM EST [facility]Haider Adamson MD [address] [place] [phone] Cece Hannon PA-C [address] [place] [address] [facility]/Haider Adamson MD Start: 03-04-2024 End: 03-04-2024 Patient encounter procedure 03/04/2024 9:30 AM EST [facility]Haider Adamson MD [address] [place] [phone] Cece Hannon PA-C [address] [place] [address] [facility]/Haider Adamson MD Start: 02-02-2024 End: 02-02-2024 Patient encounter procedure 02/02/2024 8:00 AM EST Appointment [facility] [address] [place] [address] Weight 250 / Patient is Diabetic / Order in EPIC // DX: Nausea [R11.0] [facility] Comment on above: Weight 250 / Patient is Diabetic / Order in EPIC // DX: Nausea [R11.0] Start: 12-29-2023 Hemoglobin A1c measurement [facility]C [facility] Start: 11-07-2023 End: 11-07-2023 Patient encounter procedure 11/07/2023 8:00 AM EDT Appointment [facility] [address] [place] [address] Weight 220 / Patient is Diabetic / order in EPIC // DX: Nausea [R11.0] scheduled w/ patient... [facility] Comment on above: Weight 220 / Patient is Diabetic / order in EPIC // DX: Nausea [R11.0] scheduled w/ patient... Start: 10-29-2023 Covid-19 Vaccine ( season) Covid-19 Vaccine ( season) [facility] Start: 10-29-2023 Covid-19 Vaccine ( season) Covid-19 Vaccine ( season) [facility] Start: 10-29-2023 COVID-19 Vaccine ( season) COVID-19 Vaccine ( season) [facility] Start: 10-29-2023 Influenza vaccination Influ[facility] Vacc[facility] Start: 10-18-2023 End: 10-18-2023 Admission to same day surgery center 10/18/2023 2:[address] [facility] [address] [place] [address] Martine Bowling MD [address] [place] [address] Post op [facility] General Surgery Comment on above: Post op [facility] Start: 08-22-2023 End: 08-22-2023 Patient encounter procedure 08/22/2023 9:30 AM EDT Appointment [facility] [address] [place] [address] Martine Bowling MD [address] [place] [address] Gastroparesis due to DM (HCC) [facility] Comment on above: Gastroparesis due to DM (HCC) Start: 08-02-2023 End: 11-01-2023 ACETYLCHOLINE REC BINDING AB [facility] Comment on above: Expected: 08/02/2023, Expires: Start: 08-02-2023 End: 11-01-2023 AMINO ACIDS, PLASMA W/ CONSULTATION [facility] Comment on above: Expected: 08/02/2023, Expires: Start: 08-02-2023 End: 11-01-2023 CARNITINE FREE AND TOTAL, PLASMA [facility] Comment on above: Expected: 08/02/2023, Expires: Start: 08-02-2023 End: 11-01-2023 CYTOKINE PANEL 13, SERUM [facility] Comment on above: Expected: 08/02/2023, Expires: Start: 08-02-2023 End: 11-01-2023 ESTROGEN FRACTION [facility] Comment on above: Expected: 08/02/2023, Expires: Start: 08-02-2023 End: 11-01-2023 Glutamate decarboxylase 65 Ab [Units/volume] in Serum [facility] Comment on above: Expected: 08/02/2023, Expires: Start: 08-02-2023 End: 11-01-2023 ORGANIC ACIDS UR, QUANT W/CONSULTATION [facility] Comment on above: Expected: 08/02/2023, Expires: Start: 08-02-2023 End: 11-01-2023 PYRUVATE+LACTATE BL [facility] Work Phone: Comment on above: Expected: 08/02/2023, Expires: Start: 08-02-2023 End: 11-01-2023 VOLTAGE GATED CA IGG [facility] Comment on above: Expected: 08/02/2023, Expires: Start: 08-02-2023 End: 11-01-2023 Voltage-gated potassium channel Ab [Moles/volume] in Serum [facility] Comment on above: Expected: 08/02/2023, Expires: Start: 08-02-2023 End: 08-02-2023 Patient encounter procedure Gastroenterology Comment on above: egg new gp consult Start: 07-29-2023 Diabetic foot examination Diabetic Foot Exam [facility] Start: 07-29-2023 Hepatitis B screening Urine Albumin:Creatinine Ratio [facility] Start: 07-25-2023 [facility] Start: 06-27-2023 Hemoglobin A1c measurement HbA1C [facility] Start: 06-04-2023 End: 08-04-2023 CBC W Auto Differential panel - Blood CBC + DIFF Lab Routine Hypercoagulable state (HCC) Expected: 06/04/2023 (Approximate), Expires: 08/04/2023 [facility] Work Phone: Comment on above: Expected: 06/04/2023 (Approximate), Expi res: 08/04/2023 Start: 06-04-2023 End: 08-04-2023 Comprehensive metabolic 2000 panel - Serum or Plasma COMP METABOLIC PANEL Lab Routine Hypercoagulable state (HCC) Expected: 06/04/2023 (Approximate), Expires: 08/04/2023 [facility] Work Phone: Comment on above: Expected: 06/04/2023 (Approximate), Expi res: 08/04/2023 Start: 03-28-2023 Administration of varicella zoster vaccine Zoster (Shingles) Vaccine (2 of 2) [facility] Start: 03-28-2023 Shingrix Vaccine (2 of 2) Shingrix Vaccine (2 of 2) [facility] Start: 02-27-2023 Depression Assessment Depression Assessment [facility] Start: 10-28-2022 Covid-19 Vaccine ( season) Covid-19 Vaccine () [facility] Start: 07-04-2022 Hemoglobin A1c/Hemoglobin.total in Blood HBA1C [facility] Start: 05-27-2022 Screening for malignant neoplasm of breast Mammogram [facility] Start: 03-25-2022 End: 05-25-2022 CREATININE BLD CREATININE BLD Lab Routine Generalized abdominal pain Expected: 03/25/2022, Expires: 05/25/2022 [facility] Work Phone: Comment on above: Expected: 03/25/2022, Expires: 3 Start: 02-27-2022 DEPRESSION ASSESSMENT DEPRESSION ASSESSMENT [facility] Start: 02-10-2022 Duplex scan of lower limb veins US venous duplex LE LT [facility] Start: 02-10-2022 US Lower extremity vein - left [facility] Start: 12-11-2021 DTaP,Tdap and Td Vaccines (2 - Td or Tdap) DTaP,Tdap and Td Vaccines (2 - Td or Tdap) [facility] Start: 12-11-2021 Urine microalbumin profile [facility] Start: 11-15-2021 Adult depression screening assessment DEPRESSION SCREENING [facility] Start: 10-04-2021 Hemoglobin A1c/Hemoglobin.total in Blood HBA1C [facility] Start: 02-25-2021 COVID-19 VACCINE (4 - Booster for Moderna series) COVID-19 VACCINE (4 - Booster for Moderna series) [facility] Start: 12-09-2020 PNEUMOCOCCAL (2 - PCV) PNEUMOCOCCAL (2 - PCV) [facility] Start: 12-09-2020 Pneumococcal vaccination Pneumococcal Vaccine (2 of 2 - PCV) [facility] Start: 12-09-2020 Pneumococcal Vaccine: 50+ (2 of 2 - PCV) Pneumococcal Vaccine: 50+ (2 of 2 - PCV) [facility] Start: 11-22-2019 Mammography MAMMOGRAM [facility] Start: 11-22-2019 Screening for malignant neoplasm of breast [facility] Start: 08-09-2019 SHINGRIX VACCINE (1 of 2) SHINGRIX VACCINE (1 of 2) [facility] Start: 2014 COLOGUARD (FIT-DNA) COLOGUARD (FIT-DNA) [facility] Start: 2014 Colonoscopy COLONOSCOPY [facility] Start: 2014 COLORECTAL CANCER SCREENING COLORECTAL CANCER SCREENING [facility] Start: [address] COLONOGRAPHY [facility] Start: 2014 FECAL OCCULT BLOOD FECAL OCCULT BLOOD [facility] Start: 2014 Screening for malignant neoplasm of colon [facility] Start: 2014 SIGMOIDOSCOPY SIGMOIDOSCOPY [facility] Start: 08-09-1999 HPV TESTING HPV TESTING [facility] Start: 08-09-1999 Screening for malignant neoplasm of cervix HPV Testing [facility] Start: 1990 PAP TESTING PAP TESTING [facility] Start: 1990 Screening for malignant neoplasm of cervix [facility] Start: 1988 Hepatitis B Vaccine (1 of 3 - 19+ 3-dose series) Hepatitis B Vaccine (1 of 3 - 19+ 3-dose series) [facility] Start: 08-09-1987 ANNUAL PCP TEAM CHRONIC DISEASE VISIT ANNUAL PCP TEAM CHRONIC DISEASE VISIT [facility] Start: 08-09-1987 Hepatitis B surface antibody level LDL CHOLESTEROL [facility] Start: 08-09-1987 HEPATITIS C SCREENING HEPATITIS C SCREENING [facility] Start: 08-09-1987 Hepatitis C screening Hepatitis C Screening [facility] Start: 08-09-1987 HIV SCREENING HIV SCREENING [facility] Start: 08-09-1987 HIV screening HIV Screening [facility] Start: 08-09-1979 3 comp foot exam completed DIABETIC FOOT EXAM [facility] Start: 08-09-1979 Diabetic foot examination Diabetic Foot Exam [facility] Start: 08-09-1979 Glaucoma screening Dilated Retinal Exam [facility] Start: 08-09-1979 Hepatitis B screening URINE ALBUMIN:CREATININE RATIO [facility] Start: 08-09-1979 Hepatitis C antibody, confirmatory test DILATED RETINAL EXAM [facility] Start: 1969 Glaucoma screening Diabetic Ophthalmology Exam [facility] [employer] Start: 1969 HEPATITIS B (1 of 3 - 3-dose series) HEPATITIS B (1 of 3 - 3-dose series) [facility] End: 08-27-2025 Bacteria identified in Urine by Culture Urine culture (clean catch) Microbiology Routine Burning with urination 1 Occurrences starting 08/27/2024 until 08/27/2025 [employer] Work Phone: Comment on above: 1 Occurrences starting 08/27/2024 until 08/27/2025 End: 04-18-2025 CBC W Auto Differential panel - Blood CBC auto differential Lab Routine Type 2 diabetes mellitus without complication, without long-term current use of insulin ([facility]) 1 Occurrences starting 04/18/2024 until 04/18/2025 [employer] Work Phone: Comment on above: 1 Occurrences starting 04/18/2024 until 04/18/2025 CBC W Auto Different ial panel - Blood CBC auto differential Lab Routine Type 2 diabetes mellitus without complication, without long-term current use of insulin ([facility]) 04/18/2024 11:17 AM [employer] End: 04-18-2025 Comprehensive metabolic 2000 panel - Serum or Plasma Comprehensive metabolic panel Lab Routine Type 2 diabetes mellitus without complication, without long-term current use of insulin ([facility]) 1 Occurrences starting 04/18/2024 until 04/18/2025 [employer] Comment on above: 1 Occurrences starting 04/18/2024 until 04/18/2025 Comprehensive metabo lic 2000 panel - Serum or Plasma Comprehensive metabolic panel Lab Routine Type 2 diabetes mellitus without complication, without long-term current use of insulin ([facility]) 04/18/2024 11:17 AM [employer] End: 04-24-2023 Ct abdomen & pelvis w/contrast material CT ABD/PEL W IVCON Radiology Routine Generalized abdominal pain 1 Occurrences starting 03/25/2022 until 04/24/2023 [facility] [employer] Work Phone: Comment on above: 1 Occurrences starting 03/25/2022 until 04/24/2023 End: 08-01-2024 EGD - THERAPEUTIC, EUS, OR TUBE INTERVENTIONS EGD - THERAPEUTIC, EUS, OR TUBE INTERVENTIONS Endoscopy Routine Gastroparesis due to DM (HCC) ([facility]) 1 Occurrences starting 08/02/2023 until 08/01/2024 [facility] [employer] Work Phone: Comment on above: 1 Occurrences starting 08/02/2023 until 08/01/2024 Electrogastrography dx transcut w/provoctve tstg EGG (ELECTROGASTROGRAPHY) Procedures Routine Gastroparesis Ordered: 05/19/2023 [facility] [employer] Work Phone: Comment on above: Ordered: 05/19/2023 End: 04-18-2025 Hemoglobin A1c/Hemoglobin.total in Blood Hemoglobin A1c Lab Routine Type 2 diabetes mellitus without complication, without long-term current use of insulin ([facility]) 1 Occurrences starting 04/18/2024 until 04/18/2025 [employer] Comment on above: 1 Occurrences starting 04/18/2024 until 04/18/2025 Hemoglobin A1c/Hemoglobin.total in Blood Hemoglobin A1c Lab Routine Type 2 diabetes mellitus without complication, without long-term current use of insulin ([facility]) 04/18/2024 11:17 AM [employer] End: 04-18-2025 Lipid 1996 panel - Serum or Plasma Lipid profile Lab Routine Type 2 diabetes mellitus without complication, without long-term current use of insulin ([facility]) 1 Occurrences starting 04/18/2024 until 04/18/2025 [employer] Comment on above: 1 Occurrences starting 04/18/2024 until 04/18/2025 Lipid 1996 panel - S delaney or Plasma Lipid profile Lab Routine Type 2 diabetes mellitus without complication, without long-term current use of insulin ([facility]) 04/18/2024 11:17 AM [employer] MR Cervical spine WO contrast [facility] End: 11-14-2024 NM Stomach Views for gastric emptying solid phase W radionuclide PO NM GASTRIC EMPTYING SOLID Radiology Routine Nausea 1 Occurrences starting 10/18/2023 until 11/14/2024 [facility] Work Phone: Comment on above: 1 Occurrences starting 10/18/2023 until 11/14/2024 End: 05-29-2025 NM Stomach Views for gastric emptying solid phase W radionuclide PO NM GASTRIC EMPTYING SOLID Radiology Routine Nausea 1 Occurrences starting 05/01/2024 until 05/29/2025 [facility] Work Phone: Comment on above: 1 Occurrences starting 05/01/2024 until 05/29/2025 Patient Education [facility] Work Phone: Patient referral [facility] Work Phone: End: 04-18-2025 Thyrotropin [Units/volume] in Serum or Plasma TSH Lab Routine Type 2 diabetes mellitus without complication, without long-term current use of insulin ([facility]) 1 Occurrences starting 04/18/2024 until 04/18/2025 [employer] Comment on above: 1 Occurrences starting 04/18/2024 until 04/18/2025 Thyrotropin [Units/v olume] in Serum or Plasma TSH Lab Routine Type 2 diabetes mellitus without complication, without long-term current use of insulin ([facility]) 04/18/2024 11:17 AM [facility] End: 04-18-2025 Thyroxine (T4) free [Mass/volume] in Serum or Plasma T4, free Lab Routine Type 2 diabetes mellitus without complication, without long-term current use of insulin ([facility]) 1 Occurrences starting 04/18/2024 until 04/18/2025 [facility] Comment on above: 1 Occurrences starting 04/18/2024 until 04/18/2025 Thyroxine (T4) free [Mass/volume] in Serum or Plasma T4, free Lab Routine Type 2 diabetes mellitus without complication, without long-term current use of insulin ([facility]) 04/18/2024 11:17 AM [facility] Immunizations Immunization Date Immunization Notes Care Provider Mark ariza 01-04-2024 influenza, seasonal, injectable, preservative free Cece Hannon PA-C Work Phone: [facility] 01-04-2024 influenza virus vacc ine, unspecified formulation Patricia Radha [facility] 01-31-2023 zoster vaccine, unspecified formulation Cece Hannon PA-C Work Phone: [facility] 12-21-2022 influenza, injectabl e, quadrivalent, preservative free Cece Hannon PA-C Work Phone: [facility] 12-21-2022 influenza virus vacc ine, unspecified formulation Ambar Vang [facility] Work Phone: [facility] 12-22-2021 influenza, injectabl e, quadrivalent, preservative free Checo Spivey MD Work Phone: [facility] 01-11-2021 influenza, injectabl e, quadrivalent, preservative free Gardenia Gupta PA-C Work Phone: [facility] 12-31-2020 COVID-19 mRNA-1273 (Moderna) PA-C Cece Hannon Work Phone: [facility] 06-15-2020 COVID-19 vaccine, fu ll dose (MODERNA) Gardenia Edvin PA-C Work Phone: [facility] 06-15-2020 SARS-COV-2 (COVID-19 ) Vaccine, Unspecified Cece Hannon PA-C Work Phone: [facility] 05-18-2020 COVID-19 mRNA-1273 (Moderna) PA-C Cece Hannon Work Phone: [facility] 05-18-2020 SARS-COV-2 (COVID-19 ) Vaccine, Unspecified Cece Hannon PA-C Work Phone: [facility] 12-10-2019 influenza, injectabl e, quadrivalent, preservative free Gardenia Edvin PA-C Work Phone: [facility] 12-10-2019 pneumococcal polysaccharide vaccine, 23 valent Gardenia Edvin PA-C Work Phone: [facility] 11-27-2018 influenza, intraderm al, quadrivalent, preservative free, injectable Gardenia Edvin PA-C Work Phone: [facility] 11-28-2017 influenza, injectabl e, quadrivalent, preservative free Gardenia Edvin PA-C Work Phone: [facility] 12-27-2016 influenza, injectabl e, quadrivalent, preservative free Gardenia Edvin PA-C Work Phone: [facility] 12-09-2016 influenza nasal, unspecified formulation Gardenia Edvin PA-C Work Phone: [facility] 12-09-2016 influenza virus vacc ine, unspecified formulation Cece Hannon PA-C Work Phone: [facility] 01-04-2016 influenza, injectabl e, quadrivalent, contains preservative Gardenia Edvin PA-C Work Phone: [facility] 01-21-2015 influenza, injectabl e, quadrivalent, contains preservative Gardenia Edvin PA-C Work Phone: [facility] 12-06-2013 influenza, injectabl e, quadrivalent, contains preservative Gardenia Edvin PA-C Work Phone: [facility] 12-12-2011 tetanus toxoid, redu sarah diphtheria toxoid, and acellular pertussis vaccine, adsorbed Gardenia Edvin PA-C Work Phone: [facility] Payers Date Payer Category Payer Medicare AETNA MEDICARE A ETNA MEDICARE ASSURE HMO D SNP [id number] 2023-Present [phone] [address] [place] [address] Medicare [id number] 2023 Medicare (Managed Care) 1.2. [id number] 2023 Medicare O [id number] 2023 Medicare [id number] 2023 Self-pay [id number] 2020 Medicaid [place] MEDICA[employer] ROLANDARE [place] MEDICAID [id number] 2020-Present [phone] [address] [place] [address] Medicaid [id number] 2020 Medicaid [id number] 2019 Unknown ANTHEM BLUE CROS S AND BLUE SHIELD ANTHEM JANICEUE O [id number] 2019-Present [phone] [address] [place] [address] O [id number] .[id number] 2019 Unknown [id number]. [id number] .[id number] 1969 Unknown [id number] 2.16.840.1.106591.3.579.2.6 47 1969 Unknown [id number] 2.16.840.1.070684.3.579.2.5 93 1969 Unknown [id number] 2.16.840.1.024527.3.579.2.1 286 1969 Unknown [id number] 2.16.840.1.591241.3.579.2.7 27 1969 Unknown [id number] 2.16.840.1.832336.3.579.2.7 27 1969 Unknown [id number] 2.16.840.1.044277.3.579.2.1 286 1969 Unknown [id number] 2.16.840.1.379120.3.579.2.1 286 1969 Unknown [id number] 2.16.840.1.643310.3.579.2.1 286 1969 Unknown [id number] 2.16.840.1.527606.3.579.2.1 286 1969 Unknown [id number] 2.16.840.1.617004.3.579.2.1 286 1969 Unknown [id number] 2.16.840.1.760362.3.579.2.7 18 1969 Unknown [id number] 2.16.840.1.087306.3.579.2.7 18 1969 Unknown [id number] 2.16.840.1.675403.3.579.2.7 18 1969 Unknown [id number] 2.16.840.1.087548.3.579.2.7 18 1969 Unknown [id number] 2.16.840.1.930069.3.579.2.7 18 1969 Unknown [id number] 2.16.840.1.307862.3.579.2.7 18 1969 Unknown [id number] 2.16.840.1.228486.3.579.2.7 18 1969 Unknown [id number] 2.16.840.1.578358.3.579.2.7 18 1969 Unknown [id number] 2.16.840.1.983058.3.579.2.7 18 1959 Unknown [id number] 1959 Unknown [id number] Medicare Medicare [id number] Unknown [id number] 2.16.840.1.974370.3.579.2.5 31 Unknown [id number] 2.16.840.1.542482.3.579.2.5 31 Social History Date Type Detail Facility Start: 09-19-2019 End: 01-04-2022 Tobacco smoking status WIIS Never smoked tobacco [facility] Start: 05-27-2021 End: 09-10-2024 Alcohol intake Current non-drinker of alcohol (finding) [facility] Start: 02-06-2020 End: 08-09-2023 Tobacco Comment Boyfriend smokes [facility] Start: 1970 Sex Assigned At Female [facility] Start: 05-17-2021 End: 05-27-2021 Exposure to SARS-CoV-2 (event) Not sure [facility] Start: 04-07-2022 End: 06-03-2022 Sex Assigned At [facility] Start: 02-06-2020 End: 01-04-2022 Tobacco use and exposure Smokeless tobacco non-user [facility] Work Phone: Start: 04-07-2022 End: 06-03-2022 History of Social function [facility] Adult Depression Screening Assessment 6 [facility] Start: 02-02-2020 Gender identity Identifies as female gender (finding) [facility] Start: 02-02-2020 Sexual orientation Heterosexual (finding) [facility] Start: 10-02-2014 End: 01-15-2024 Sex Female (finding) [facility] Do you belong to any clubs or organizations such as rastafari groups, unions, fraternal or athletic groups, or school groups? No [facility] How often do you hav e 6 or more drinks on 1 occasion? Never [facility] Do you feel stress - tense, restless, nervous, or anxious, or unable to sleep at night because your mind is troubled all the time - these days [OSQ] To some extent [facility] Start: 04-07-2022 Education [employer] Start: 1970 Sex assigned at Not on file [employer] [facility] Sexual Orientation [facility] Medical Equipment Procedure Code Equipment Code Equipment Origin al Text Equipment Identifier Dates [id number] Start: 11-13-2023 End: 06-27-2024 1 strip by other route in the morning and 1 strip before bedtime. [id number] Start: 11-16-2023 TEST 2 TIMES A DAY [id number] Start: 11-16-2023 Inject 1 Pen Nee dle under the skin nightly. [id number] Start: 07-02-2024 Goals Date Patient Goal Desired Activity /State Functional Status Date Assessment Result Facility 06-24-2024 Functional Status N/A [facility] 01-06-2022 Functional Status No [facility] 11-08-2013 Are you deaf, or do you have serious difficulty hearing No 11/08/2013 8:56 AM Melia Amador No [facility] 11-08-2013 Are you blind, or do you have serious difficulty seeing, even when wearing glasses Yes 11/08/2013 8:56 AM EDT Melia Gaytan Yes [facility] 11-08-2013 Do you have serious difficulty walking or climbing stairs Yes 11/08/2013 8:56 AM EDT Melia Gaytan Yes [facility] 11-08-2013 Do you have difficul ty dressing or bathing No 11/08/2013 8:56 AM EDT Melia Gaytan No [facility] 11-08-2013 Because of a physica l, mental, or emotional condition, do you have difficulty doing errands alone such as visiting a physician's office or shopping No 11/08/2013 8:56 AM EDT Melia Gaytan No [facility] Mental Status Date Assessment Result Facility 11-08-2013 Because of a physica l, mental, or emotional condition, do you have serious difficulty concentrating, remembering, or making decisions No 11/08/2013 8:56 AM EDT Melia Gaytan No [facility] Clinical Notes 01-06-2021 to 09-26-2024 Cece Hannon PA-C - 09/10/2024 11:00 AM EDTPatient InstructionsAndangeli Hannon PA-C - 08/27/2024 1:15 PM EDTPatient InstructionsTelephone Encounter - Patricia Garcia CMA - 07/26/2024 3:12 PM EDT Note Date & Type Note Facility 09-26-2024 Note [id number] History of Present illness Narrative Images from the original note were not included. Subjective Patient ID: Naila Beltran is a 54 y.o. female. Chief Complaint Chief Complaint Patient presents with Follow-up [facility] and labs comp HPI HPI Naila is a 54-year-old,uncontrolled diabetic, history of seizure disorder. Last seen 08/27/2024. Tx for uti, yeast candidiasis, uncontrolled dm. As advised she increased her insulin was increased to 12 units nightly. Last visit acute cystitis with hematuria treated with Macrobid and Pyridium. Dysuria symptoms resolved. Completed Diflucan for possible yeast vaginitis as a diabetic on Jardiance. Vaginal dryness itching has resolved. Repeat urinalysis today shows negative leukocytes, negative for blood. Last A1C was 10.3 as of 04/18/2024. Improved to 7.8 as of 09/05/2024 puja labs with cutting out soda, carbs. Stopped coke. Drinking water. A1C fasting 130-140's. Completed renal bladder ultrasounds on-site and12/21 which shows a 1 cm right renal cyst. There was no signs of renal mass, kidney stones. Dull achiness right flank has since resolved status post antibiotics. Patient states she feels much better. Energy is improved, appetite is improved. She is following a strict diabetic diet. Past Medical History Past Medical History: Diagnosis Date Anemia iron deficiency Anxiety Arthritis Back pain with right-sided sciatica Cataract Cervical disc disease Cervical radiculopathy Cervical spondylosis Cobalamin deficiency COVID-19 02/14/2020 COVID-19 virus detected 02/08/2020 Deep vein thrombosis (DVT) of lower extremity ([facility] [place] 05/25/2017 Depression Diabetic eye exam ([facility] [place]) 06/06/2017 Dr. Hicks: diabetic retinopathy not detected-distance visual acuity:OD- 20/20, OS-20/20, re-evaluation 1 yr. Dilation of thoracic aorta Elevated LDL cholesterol level Eye exam, routine 08/14/2009 Dr. Hicks, presbyopia OU Fatigue Fatty liver Gallstone Gastroesophageal reflux disease without esophagitis 2020 Upper GI-Dr. Garcia Generalized convulsive epilepsy ([facility] [place] Headache, classical migraine, intractable, with status migrainosus Dr. Julio pinched nerve in neckl Heterozygous factor V Leiden mutation Hypercoagulable state Hyperlipidemia Hypoalphalipoproteinemia Migraine without aura and without status migrainosus, not intractable 05/09/2017 Mood swings MRSA (methicillin resistant Staphylococcus aureus) Narrowing of intervertebral disc space Nevus anemicus Obesity Pain in limb Seizures ([facility] [place]) 3 mo old, 17 1/2 yrs old, 29 yrs old, last one 2012 Shingles Skin sensation disturbance Thyroid adenoma Thyroid nodule 11/21/2018 US: Stable right thyroid nodule. Interval enlargement of left nodule, 1.6cm from 2017 Varicose veins of legs Visual impairment Vitamin D deficiency Past Surgical History Past Surgical History: Procedure Laterality Date ANGIOGRAPHY 03/15/2017 Limited femoral angiography, bilateral selective coronary angiography, placement of a 6-Argentine MynxGrip closure device. Impression: Mild disease of the left anterior descending coronary artery. Normal global left ventricular systolic function by noninvasive imaging. BYPASS GRAFT 06/25/2018 Venous from right to left Dr. [place] CAROTID DOPPLER COMP-BI 11/29/2016 IMPRESSION: Minimal plaquing with no significant hemodynamic stenosis of the bile internal carotid arteries. Suggested complex right thyroid lobe nodule. Dedicated right thyroid us follow-up may be considered. COLONOSCOPY 04/22/2013 COLONOSCOPY 10/11/2019 CT ANGIO LOWER EXTREMITIES-BILATERAL Bilateral 02/14/2017 No evidence deep vein thrombosis.Phleboliths, lt. peroneal vein. Small lt. external iliac veins.Overlapping stents lt. common & proximal iliac veins.Ectrinsic compression,non-stented proximal lt. common iliac vein between rt. common iliac artery & spine.Subcutaneous varicosities, both LE, lt greater than rt.Asymmetricals subcutaneous edematous changes lt.Absent rt.greater saphenous vein,lt cyst ov CT CHEST/ABD/PELVIS WITH CONTRAST 01/03/2016 IMPRESSION:CT chest fails to demonstrate evidence of pulmonary emboli. Borderline/mild aneurysmal ascending thoracic aorta similar to prior exam. No evidence of dissection/leak. Patchy ground glass densities bilaterally, mild congestive changes interstitial infiltrates. abdomen/plevis, mild fatty infiltration liver. Multiple gallstones-gallbladder.Likely tiny rt renal, adnexal cysts. FINE NEEDLE ASPIRATION Right 01/09/2017 Thyroid: Benign, consistent with benign follicular nodule with Hurthle cell changes. Groups of follicuar cells, show Hurthie cell changes are present, forming variable sized follicles, background of abundant peripheral blood and colloid. Increased lymphocytes, suggestive of lymphocytic thyroiditis. HYSTERECTOMY 07/29/2011 INJECTION ANESTHETIC AGENT TO CERVICAL PLEXUS [id number], 06/14/2017, 07/10/2017, 07/31/2017 Dr. Adan Julio, cervical facet medial branch block right at C3, C4, and C5 under fluroscopic guidance MG MAMMOGRAM DIAGNOSTIC BILATERAL W/CAD 02/02/2017 IMPRESSION: No mammographic evidence of malignancy. Routine follow-up one yr.. Clinical management is recommended for patient's nipple sensitivity. OTHER SURGICAL HISTORY 2009 left leg- several surgical procedures to clean up, 2 stents in left groin OTHER SURGICAL HISTORY 2009 belly button OTHER SURGICAL HISTORY 02/27/2011 bypass OTHER SURGICAL HISTORY koko filter OTHER SURGICAL HISTORY neck injection OTHER SURGICAL HISTORY 02/14/2017 STR cardiac stress/lexiscan-Impression: Uncomplicated pharmacological stress test, negative by electrocardiographic criteria. Nuclear medicine report will follow separately. OTHER SURGICAL HISTORY 02/14/2017 NM miya perf SPECT rest & str: Conclusion-No clear pattern of ischemia or myocardial infarction. Abnormal left ventricular systolic function with calculated ejection fraction of 46%. No previous study available for comparison. PYLOROPLASTY 10/18/2023 [facility]- Dr. Bowling, general surgeon RADIOFREQUENCY ABLATION 10/10/2014 cervical medial branch radiofrequency ablation-cervical spondylosis ROTATOR CUFF REPAIR Left 2017 left shoulder US CAROTID DUPLEX COMP-BILAT 11/29/2016 [facility]. minimal plaques, no high grade stenosis US THYROID 12/07/2016 IMPRESSION: 2.1cm heterogeneous right mid nodule. 6 mm left midpole hypoechoic ill-defined nodule. Dr. Delvis Dominguez-[facility] US THYROID 11/21/2018 Left nodule interval enlargement of 1.6cm, Stable Right VENOUS DUPLEX - LIMITED 12/27/2013 IMPRESSION: Grossly unremarkable imaging study, visulaized deep venous system of the left leg. No evidence of deep venous thrombosis. Family History Family History Problem Relation Age of Onset COPD Mother Emphysema Mother Diabetes Mother type II Heart disease Mother Early Mother Hypertension Mother Other Mother acute myocardial infarction Arthritis Father Diabetes Father type II Hyperlipidemia Father Hypertension Father Hyperlipidemia Brother Diabetes Maternal Grandmother Cancer Maternal Grandmother No Known Problems Maternal Grandfather Cancer Paternal Grandmother Hyperlipidemia Paternal Grandmother Hypertension Paternal Grandmother Thyroid Issues Paternal Grandmother Stroke Paternal Grandfather Cancer Paternal Grandfather Diabetes Paternal Grandfather Cancer Paternal Uncle Cancer Paternal Aunt Cancer Maternal Uncle Social History Social History Socioeconomic History Marital status: Spouse name: Not on file Number of children: Not on file Years of education: Not on file Highest education level: GED or equivalent Occupational History Occupation: disability Tobacco Use Smoking status: Never Smokeless tobacco: Never Vaping Use Vaping status: Never Used Substance and Sexual Activity Alcohol use: No Drug use: No Sexual activity: Yes Partners: Male control/protection: None Other Topics Concern Not on file Social History Narrative Not on file Social Drivers of Health Financial Resource Strain: Patient Declined (06/09/2024) Overall Financial Resource Strain (CARDIA) Difficulty of Paying Living Expenses: Patient declined Food Insecurity: Food Insecurity Present (06/09/2024) Hunger Screening Food Insecurity - Worry: Often True Food Insecurity - Inability: Sometimes True Transportation Needs: Unmet Transportation Needs (06/09/2024) PRAPARE - Transportation Lack of Transportation (Medical): Yes Lack of Transportation (Non-Medical): No Physical Activity: Sufficiently Active (04/07/2022) Exercise Vital Sign Days of Exercise per Week: 7 days Minutes of Exercise per Session: 60 min Stress: Stress Concern Present (04/07/2022) [place] [employer] - Occupational Stress Questionnaire Feeling of Stress : To some extent Social Connections: Unknown (04/07/2022) Social Connection and Isolation Panel [NHANES] Frequency of Communication with Friends and Family: Three times a week Frequency of Social Gatherings with Friends and Family: Patient declined Attends Jehovah'S Witness Services: Patient declined Active Member of Clubs or Organizations: No Attends Club or Organization Meetings: Patient declined Marital Status: Patient declined Interpersonal Safety: Unknown (04/20/2023) Received from [facility] [place] Safety [facility] Environment Fear of Current or Ex-Partner: Not on file Emotionally Abused: Not on file Physically Abused: Not on file Sexually Abused: Not on file Physically or Sexually Abused: Not on file Housing Instability: Low Risk (06/09/2024) Housing Instability Housing Instability: No Allergies Allergies Allergen Reactions Heparin Thickens blood, raises blood pressure Cephalexin Hives and Other (See Comments) Heparin (Porcine) Other (See Comments) Penicillins Hives and Other (See Comments) Current Medications Current Outpatient Medications Medication Sig Dispense Refill albuterol (PROVENTIL HFA;VENTOLIN HFA) 90 mcg/actuation inhaler Inhale 2 puffs in the morning and 2 puffs before bedtime. apixaban (ELIQUIS) 2.5 mg tablet Take 1 tablet (2.5 mg total) by mouth in the morning and 1 tablet (2.5 mg total) before bedtime. aspirin 81 mg Take 1 tablet (81 mg total) by mouth daily. 90 tablet 3 atorvastatin (LIPITOR) 40 mg tablet Take 1 tablet (40 mg total) by mouth in the morning. 90 tablet 3 blood sugar diagnostic (CONTOUR NEXT TEST STRIPS) strip TEST BEFORE BREAKFAST AND BEDTIME 100 strip 3 blood sugar diagnostic (ONETOUCH ULTRA TEST) strip 1 strip by other route in the morning and 1 strip before bedtime. 200 strip 3 blood-glucose meter (ONETOUCH ULTRA2 METER) [facility] [place] USE TO CHECK GLUCOSE TWICE DAILY 1 each 0 busPIRone (BUSPAR) 10 mg tablet Take 1 tablet (10 mg total) by mouth 3 (three) times a day. 90 tablet 5 cetirizine (ZyrTEC) 10 mg tablet Take 1 tablet (10 mg total) by mouth in the morning for 30 days. 30 tablet 5 cholecalciferol, vitamin D3, (VITAMIN D3) 2,000 units capsule Take 1 capsule (2,000 Units total) by mouth in the morning. 90 capsule 3 empagliflozin (JARDIANCE) 25 mg tablet tablet Take 1 tablet (25 mg total) by mouth every morning for 360 days. TAKE 1 TABLET BY MOUTH IN THE MORNING FOR 90 DAYS 90 tablet 3 lancets (MICROLET LANCET) [facility] [place] 2 TIMES A DAY 200 each 1 levETIRAcetam XR (KEPPRA XR) 500 mg 24 hr tablet Take 3 tablets (1,500 mg total) by mouth nightly. 90 tablet 11 metoprolol tartrate (LOPRESSOR) 25 mg tablet Take 2 tablets (50 mg total) by mouth in the morning and 2 tablets (50 mg total) before bedtime. pen needle, diabetic 32 gauge x 1/4 needle Inject 1 Pen Needle under the skin nightly. 100 each 0 glyBURIDE (DIABETA) 5 mg tablet 1 before breakfast and 2 before dinner 90 tablet 5 insulin glargine (LANTUS U-100 INSULIN) 100 unit/mL injection Inject 0.14 mL (14 Units total) under the skin nightly. 10 mL 1 VENTOLIN HFA 90 mcg/actuation inhaler inhale 2 puffs by mouth four times a day if needed for wheezing or shortness of breath (Patient not taking: Reported on 09/10/2024) 18 g 3 No current facility-administered medications for this visit. Review of Systems Review of Systems Constitutional: Negative for activity change, appetite change, fatigue, fever and unexpected weight change. HENT: Negative for congestion, ear pain, sinus pressure, sinus pain and sore throat. Eyes: Positive for visual disturbance (right eye blurred vision/cataract). Negative for discharge and redness (resolved s/p covid). Respiratory: Negative for cough and shortness of breath. Cardiovascular: Negative for chest pain and leg swelling. Gastrointestinal: Negative for abdominal distention, abdominal pain, anal bleeding, blood in stool, constipation, diarrhea, nausea and vomiting. GI upset, chronic-seeing specialist. EGD/C-scope UTD. + mobility issue, undigested food x 48 hours. Endocrine: Negative for polyuria. Blood sugars much lower, improved Genitourinary: Negative for dysuria, flank pain, hematuria and urgency. Musculoskeletal: Negative for back pain, myalgias and neck pain. Skin: Negative for rash and wound. Neurological: Positive for seizures (controlled, neurology yearly, keppra compliant). Negative for dizziness, weakness, numbness and headaches. Psychiatric/Behavioral: Negative for confusion and sleep disturbance. The patient is not nervous/anxious. Objective Vitals BP 118/72 Pulse 55 Temp 36.4 C (97.5 F) Ht 167.6 cm (5' 6 ) Wt 109.8 kg (242 lb) LMP (LMP Unknown) SpO2 97% BMI 39.06 kg/m Wt Readings from Last 3 Encounters: 09/10/24 109.8 kg (242 lb) 08/27/24 109.8 kg (242 lb) 04/18/24 109.8 kg (242 lb) Physical Exam Physical Exam Vitals reviewed. Constitutional: General: She is not in acute distress. Appearance: She is well-developed. She is obese. She is not ill-appearing or diaphoretic. Comments: Pt is calm. In NAD. Good historian, pleasant, appropriate HENT: Head: Normocephalic and atraumatic. Right Ear: Tympanic membrane and ear canal normal. No middle ear effusion. Tympanic membrane is not erythematous. Left Ear: Tympanic membrane and ear canal normal. No middle ear effusion. Tympanic membrane is not erythematous. Nose: Nose normal. No congestion or rhinorrhea. Right Nostril: No foreign body. Left Nostril: No foreign body. Right Turbinates: Not enlarged or swollen. Left Turbinates: Not enlarged or swollen. Right Sinus: No maxillary sinus tenderness. Left Sinus: No maxillary sinus tenderness. Mouth/Throat: Mouth: Mucous membranes are moist. Pharynx: No oropharyngeal exudate. Eyes: Conjunctiva/sclera: Conjunctivae normal. Pupils: Pupils are equal, round, and reactive to light. Neck: Thyroid: No thyromegaly. Mass: right thyroid mass palpable 2cm. Trachea: Trachea normal. Cardiovascular: Rate and Rhythm: Normal rate and regular rhythm. Pulses: Normal pulses. Dorsalis pedis pulses are 2+ on the right side and 2+ on the left side. Posterior tibial pulses are 2+ on the right side and 2+ on the left side. Heart sounds: Normal heart sounds. No murmur heard. No friction rub. Pulmonary: Effort: Pulmonary effort is normal. No respiratory distress. Breath sounds: Normal breath sounds. No wheezing or rales. Chest: Chest wall: No tenderness. Abdominal: General: Bowel sounds are normal. Palpations: Abdomen is soft. Tenderness: There is no abdominal tenderness. There is no guarding or rebound. Negative signs include Moreland's sign. Hernia: No hernia is present. Musculoskeletal: General: No swelling. Normal range of motion. Cervical back: Neck supple. No erythema or rigidity. Right lower leg: No edema. Left lower leg: No edema. Right foot: Normal. Normal range of motion and normal capillary refill. No swelling, tenderness, bony tenderness or crepitus. Normal pulse. Left foot: Normal range of motion and normal capillary refill. No swelling, tenderness, bony tenderness or crepitus. Normal pulse. Comments: Varicose veins. Right 5th toe onychomycosis and small callous Feet: Right foot: Protective Sensation: 5 sites tested. 3 sites sensed. Skin integrity: Skin integrity normal. No warmth. Left foot: Protective Sensation: 5 sites tested. 3 sites sensed. Skin integrity: Skin integrity normal. No warmth. Lymphadenopathy: Cervical: No cervical adenopathy. Skin: General: Skin is warm. Capillary Refill: Capillary refill takes less than 2 seconds. Findings: No rash. Neurological: General: No focal deficit present. Mental Status: She is alert and oriented to person, place, and time. Coordination: Coordination normal. Psychiatric: Mood and Affect: Mood normal. Behavior: Behavior normal. Judgment: Judgment normal. Recent Pertinent Labs and Radiology Assessment/Plan 1. Type 2 diabetes mellitus with hyperglycemia, without long-term current use of insulin ([facility] [place] 2. Cyst of right kidney 3. Mixed hyperlipidemia 4. BMI 40.0-44.9, adult ([facility] [place] 5. Glucosuria - POCT urinalysis dipstick only Medications Discontinued During This Encounter Medication Reason insulin glargine (LANTUS U-100 INSULIN) 100 unit/mL injection Reorder Patient Instructions Excellent 2 week recheck. Leukocytes, hematuria have resolved. Renal ultrasound shows 1 cm renal cyst. Diabetes control has improved significantly from A1c of 10.3 down to 7.8. Today increased Lantus to 14 units at bedtime. Refilled glyburide 5 mg 3 daily. Patient's weight is steady. Diet is much better, glucose improved significantly. HTN controlled. Recheck in 3 months. Cece Hannon PA-C 09/10/24 1231 documented in this encounter [facility] 09-10-2024 Instructions Cece Hannon PA-C - 09/10/2024 11:00 AM EDT Excellent 2 week recheck. Leukocytes, hematuria have resolved. Renal ultrasound shows 1 cm renal cyst. Diabetes control has improved significantly from A1c of 10.3 down to 7.8. Today increased Lantus to 14 units at bedtime. Refilled glyburide 5 mg 3 daily. Patient's weight is steady. Diet is much better, glucose improved significantly. HTN controlled. Recheck in 3 months. [facility] History of Present illness Narrative Images from the original note were not included. Subjective Patient ID: Naila Beltran is a 54 y.o. female. Chief Complaint Chief Complaint Patient presents with Back Pain Right lower back pain HPI HPI Naila is a 54-year-old uncontrolled diabetic, history of seizures disorder since to office for acute right lower back pain. She was last seen 04/18/2024 and was to begin taking insulin injections Lantus 10 units. She never returned but is taking this nightly. DM: As advised added Insulin. Continues to take jardiance 25mg qd for A1C of 8.3 and glyburide 10mg BID. AM now running 127-160's. Previously AM 214-287. No foots sores. Up to void 2-3 times, much better since on insulin at which prior was 5-7 times/night. CC: 3 days ago began to have achiness and burning with urination. Right sided low back pain is dull, achy but she has an achiness across both sides of the low back. No fevers, chills, n/v/d. Wonders if UTI. Last > 1 year ago. No recent antibitoics. Denies abd pain, suprapubic pain. Denies vaginal bleeding, itching, or heavy discharge. Past Medical History Past Medical History: Diagnosis Date Anemia iron deficiency Anxiety Arthritis Back pain with right-sided sciatica Cataract Cervical disc disease Cervical radiculopathy Cervical spondylosis Cobalamin deficiency COVID-19 02/14/2020 COVID-19 virus detected 02/08/2020 Deep vein thrombosis (DVT) of lower extremity ([facility] [place] 05/25/2017 Depression Diabetic eye exam ([facility] [place]) 06/06/2017 Dr. Hicks: diabetic retinopathy not detected-distance visual acuity:OD- 20/20, OS-20/20, re-evaluation 1 yr. Dilation of thoracic aorta Elevated LDL cholesterol level Eye exam, routine 08/14/2009 Dr. Hicks, presbyopia OU Fatigue Fatty liver Gallstone Gastroesophageal reflux disease without esophagitis 2020 Upper GI-Dr. Garcia Generalized convulsive epilepsy ([facility] [place]) Headache, classical migraine, intractable, with status migrainosus Dr. Julio pinched nerve in neckl Heterozygous factor V Leiden mutation Hypercoagulable state Hyperlipidemia Hypoalphalipoproteinemia Migraine without aura and without status migrainosus, not intractable 05/09/2017 Mood swings MRSA (methicillin resistant Staphylococcus aureus) Narrowing of intervertebral disc space Nevus anemicus Obesity Pain in limb Seizures ([facility] [place]) 3 mo old, 17 1/2 yrs old, 29 yrs old, last one 2013 Shingles Skin sensation disturbance Thyroid adenoma Thyroid nodule 11/21/2018 US: Stable right thyroid nodule. Interval enlargement of left nodule, 1.6cm from 2017 Varicose veins of legs Visual impairment Vitamin D deficiency Past Surgical History Past Surgical History: Procedure Laterality Date ANGIOGRAPHY 03/15/2017 Limited femoral angiography, bilateral selective coronary angiography, placement of a 6-[place]gent[place] MynxGrip closure device. Impression: Mild disease of the left anterior descending coronary artery. Normal global left ventricular systolic function by noninvasive imaging. BYPASS GRAFT 06/25/2018 Venous from right to left Dr. [place] CAROTID DOPPLER COMP-BI 11/29/2016 IMPRESSION: Minimal plaquing with no significant hemodynamic stenosis of the bile internal carotid arteries. Suggested complex right thyroid lobe nodule. Dedicated right thyroid us follow-up may be considered. COLONOSCOPY 04/22/2013 COLONOSCOPY 10/11/2019 CT ANGIO LOWER EXTREMITIES-BILATERAL Bilateral 02/14/2017 No evidence deep vein thrombosis.Phleboliths, lt. peroneal vein. Small lt. external iliac veins.Overlapping stents lt. common & proximal iliac veins.Ectrinsic compression,non-stented proximal lt. common iliac vein between rt. common iliac artery & spine.Subcutaneous varicosities, both LE, lt greater than rt.Asymmetricals subcutaneous edematous changes lt.Absent rt.greater saphenous vein,lt cyst ov CT CHEST/ABD/PELVIS WITH CONTRAST 01/03/2016 IMPRESSION:CT chest fails to demonstrate evidence of pulmonary emboli. Borderline/mild aneurysmal ascending thoracic aorta similar to prior exam. No evidence of dissection/leak. Patchy ground glass densities bilaterally, mild congestive changes interstitial infiltrates. abdomen/plevis, mild fatty infiltration liver. Multiple gallstones-gallbladder.Likely tiny rt renal, adnexal cysts. FINE NEEDLE ASPIRATION Right 01/09/2017 Thyroid: Benign, consistent with benign follicular nodule with Hurthle cell changes. Groups of follicuar cells, show Hurthie cell changes are present, forming variable sized follicles, background of abundant peripheral blood and colloid. Increased lymphocytes, suggestive of lymphocytic thyroiditis. HYSTERECTOMY 07/29/2011 INJECTION ANESTHETIC AGENT TO CERVICAL PLEXUS [id number], 06/14/2017, 07/10/2017, 07/31/2017 Dr. Adan Julio, cervical facet medial branch block right at C3, C4, and C5 under fluroscopic guidance MG MAMMOGRAM DIAGNOSTIC BILATERAL W/CAD 02/02/2017 IMPRESSION: No mammographic evidence of malignancy. Routine follow-up one yr.. Clinical management is recommended for patient's nipple sensitivity. OTHER SURGICAL HISTORY 2009 left leg- several surgical procedures to clean up, 2 stents in left groin OTHER SURGICAL HISTORY 2009 belly button OTHER SURGICAL HISTORY 02/27/2011 bypass OTHER SURGICAL HISTORY koko filter OTHER SURGICAL HISTORY neck injection OTHER SURGICAL HISTORY 02/14/2017 STR cardiac stress/lexiscan-Impression: Uncomplicated pharmacological stress test, negative by electrocardiographic criteria. Nuclear medicine report will follow separately. OTHER SURGICAL HISTORY 02/14/2017 NM miya perf SPECT rest & str: Conclusion-No clear pattern of ischemia or myocardial infarction. Abnormal left ventricular systolic function with calculated ejection fraction of 46%. No previous study available for comparison. PYLOROPLASTY 10/18/2023 [facility]- Dr. Bowling, general surgeon RADIOFREQUENCY ABLATION 10/10/2014 cervical medial branch radiofrequency ablation-cervical spondylosis ROTATOR CUFF REPAIR Left 2017 left shoulder US CAROTID DUPLEX COMP-BILAT 11/29/2016 [facility]. minimal plaques, no high grade stenosis US THYROID 12/07/2016 IMPRESSION: 2.1cm heterogeneous right mid nodule. 6 mm left midpole hypoechoic ill-defined nodule. Dr. Delvis Dominguez-[facility] [place] US THYROID 11/21/2018 Left nodule interval enlargement of 1.6cm, Stable Right VENOUS DUPLEX - LIMITED 12/27/2013 IMPRESSION: Grossly unremarkable imaging study, visulaized deep venous system of the left leg. No evidence of deep venous thrombosis. Family History Family History Problem Relation Age of Onset COPD Mother Emphysema Mother Diabetes Mother type II Heart disease Mother Early Mother Hypertension Mother Other Mother acute myocardial infarction Arthritis Father Diabetes Father type II Hyperlipidemia Father Hypertension Father Hyperlipidemia Brother Diabetes Maternal Grandmother Cancer Maternal Grandmother No Known Problems Maternal Grandfather Cancer Paternal Grandmother Hyperlipidemia Paternal Grandmother Hypertension Paternal Grandmother Thyroid Issues Paternal Grandmother Stroke Paternal Grandfather Cancer Paternal Grandfather Diabetes Paternal Grandfather Cancer Paternal Uncle Cancer Paternal Aunt Cancer Maternal Uncle Social History Social History Socioeconomic History Marital status: Spouse name: Not on file Number of children: Not on file Years of education: Not on file Highest education level: GED or equivalent Occupational History Occupation: disability Tobacco Use Smoking status: Never Smokeless tobacco: Never Vaping Use Vaping status: Never Used Substance and Sexual Activity Alcohol use: No Drug use: No Sexual activity: Yes Partners: Male control/protection: None Other Topics Concern Not on file Social History Narrative Not on file Social Drivers of Health Financial Resource Strain: Patient Declined (06/09/2024) Overall Financial Resource Strain (CARDIA) Difficulty of Paying Living Expenses: Patient declined Food Insecurity: Food Insecurity Present (06/09/2024) Hunger Screening Food Insecurity - Worry: Often True Food Insecurity - Inability: Sometimes True Transportation Needs: Unmet Transportation Needs (06/09/2024) PRAPARE - Transportation Lack of Transportation (Medical): Yes Lack of Transportation (Non-Medical): No Physical Activity: Sufficiently Active (04/07/2022) Exercise Vital Sign Days of Exercise per Week: 7 days Minutes of Exercise per Session: 60 min Stress: Stress Concern Present (04/07/2022) [place] [employer] - Occupational Stress Questionnaire Feeling of Stress : To some extent Social Connections: Unknown (04/07/2022) Social Connection and Isolation Panel [NHANES] Frequency of Communication with Friends and Family: Three times a week Frequency of Social Gatherings with Friends and Family: Patient declined Attends Jehovah'S Witness Services: Patient declined Active Member of Clubs or Organizations: No Attends Club or Organization Meetings: Patient declined Marital Status: Patient declined Interpersonal Safety: Unknown (04/20/2023) Received from [facility] Safety & Environment Fear of Current or Ex-Partner: Not on file Emotionally Abused: Not on file Physically Abused: Not on file Sexually Abused: Not on file Physically or Sexually Abused: Not on file Housing Instability: Low Risk (06/09/2024) Housing Instability Housing Instability: No Allergies Allergies Allergen Reactions Heparin Thickens blood, raises blood pressure Cephalexin Hives and Other (See Comments) Heparin (Porcine) Other (See Comments) Penicillins Hives and Other (See Comments) Current Medications Current Outpatient Medications Medication Sig Dispense Refill albuterol (PROVENTIL HFA;VENTOLIN HFA) 90 mcg/actuation inhaler Inhale 2 puffs in the morning and 2 puffs before bedtime. apixaban (ELIQUIS) 2.5 mg tablet Take 1 tablet (2.5 mg total) by mouth in the morning and 1 tablet (2.5 mg total) before bedtime. aspirin 81 mg Take 1 tablet (81 mg total) by mouth daily. 90 tablet 3 atorvastatin (LIPITOR) 40 mg tablet Take 1 tablet (40 mg total) by mouth in the morning. 90 tablet 3 blood sugar diagnostic (CONTOUR NEXT TEST STRIPS) strip TEST BEFORE BREAKFAST AND BEDTIME 100 strip 3 blood sugar diagnostic (ONETOUCH ULTRA TEST) strip 1 strip by other route in the morning and 1 strip before bedtime. 200 strip 3 blood-glucose meter (ONETOUCH ULTRA2 METER) [facility] [place] USE TO CHECK GLUCOSE TWICE DAILY 1 each 0 busPIRone (BUSPAR) 10 mg tablet Take 1 tablet (10 mg total) by mouth 3 (three) times a day. 90 tablet 5 cetirizine (ZyrTEC) 10 mg tablet Take 1 tablet (10 mg total) by mouth in the morning for 30 days. 30 tablet 5 cholecalciferol, vitamin D3, (VITAMIN D3) 2,000 units capsule Take 1 capsule (2,000 Units total) by mouth in the morning. 90 capsule 3 empagliflozin (JARDIANCE) 25 mg tablet tablet Take 1 tablet (25 mg total) by mouth every morning for 360 days. TAKE 1 TABLET BY MOUTH IN THE MORNING FOR 90 DAYS 90 tablet 3 lancets (MICROLET LANCET) misc TEST 2 TIMES A DAY 200 each 1 levETIRAcetam XR (KEPPRA XR) 500 mg 24 hr tablet Take 3 tablets (1,500 mg total) by mouth nightly. 90 tablet 11 metoprolol tartrate (LOPRESSOR) 25 mg tablet Take 2 tablets (50 mg total) by mouth in the morning and 2 tablets (50 mg total) before bedtime. pen needle, diabetic 32 gauge x 1/4 needle Inject 1 Pen Needle under the skin nightly. 100 each 0 fluconazole (DIFLUCAN) 150 mg tablet Take 1 tablet (150 mg total) by mouth once for 1 dose. 1 tablet 0 insulin glargine (LANTUS U-100 INSULIN) 100 unit/mL injection Inject 0.12 mL (12 Units total) under the skin nightly. 10 mL 1 nitrofurantoin, macrocrystal-monohydrate, (MACROBID) 100 mg capsule Take 1 capsule (100 mg total) by mouth in the morning and 1 capsule (100 mg total) before bedtime. Do all this for 7 days. 14 capsule 0 phenazopyridine (PYRIDIUM) 200 mg tablet Take 1 tablet (200 mg total) by mouth 3 (three) times a day as needed for bladder spasms for up to 2 days. 6 tablet 0 VENTOLIN HFA 90 mcg/actuation inhaler inhale 2 puffs by mouth four times a day if needed for wheezing or shortness of breath (Patient not taking: Reported on 08/27/2024) 18 g 3 No current facility-administered medications for this visit. Review of Systems Review of Systems Genitourinary: Negative for dysuria, frequency, vaginal bleeding, vaginal discharge and vaginal pain. Objective Vitals BP 122/70 Pulse 55 Temp 36.4 C (97.5 F) Ht 167.6 cm (5' 6 ) Wt 109.8 kg (242 lb) LMP (LMP Unknown) SpO2 95% BMI 39.06 kg/m Physical Exam Physical Exam Vitals reviewed. Constitutional: General: She is not in acute distress. Appearance: She is well-developed. She is obese. She is not ill-appearing or diaphoretic. Comments: Pt is calm. In NAD. Good historian, pleasant, appropriate HENT: Head: Normocephalic and atraumatic. Right Ear: Tympanic membrane and ear canal normal. No middle ear effusion. Tympanic membrane is not erythematous. Left Ear: Tympanic membrane and ear canal normal. No middle ear effusion. Tympanic membrane is not erythematous. Nose: Nose normal. No congestion or rhinorrhea. Right Nostril: No foreign body. Left Nostril: No foreign body. Right Turbinates: Not enlarged or swollen. Left Turbinates: Not enlarged or swollen. Right Sinus: No maxillary sinus tenderness. Left Sinus: No maxillary sinus tenderness. Mouth/Throat: Mouth: Mucous membranes are moist. Pharynx: No oropharyngeal exudate. Eyes: Conjunctiva/sclera: Conjunctivae normal. Pupils: Pupils are equal, round, and reactive to light. Neck: Thyroid: No thyromegaly. Mass: right thyroid mass palpable 2cm. Trachea: Trachea normal. Cardiovascular: Rate and Rhythm: Normal rate and regular rhythm. Pulses: Normal pulses. Dorsalis pedis pulses are 2+ on the right side and 2+ on the left side. Posterior tibial pulses are 2+ on the right side and 2+ on the left side. Heart sounds: Normal heart sounds. No murmur heard. No friction rub. Pulmonary: Effort: Pulmonary effort is normal. No respiratory distress. Breath sounds: Normal breath sounds. No wheezing or rales. Chest: Chest wall: No tenderness. Abdominal: General: Bowel sounds are normal. Palpations: Abdomen is soft. Tenderness: There is no abdominal tenderness. There is no guarding or rebound. Negative signs include Moreland's sign. Hernia: No hernia is present. Musculoskeletal: General: No swelling. Normal range of motion. Cervical back: Neck supple. No erythema or rigidity. Right lower leg: No edema. Left lower leg: No edema. Right foot: Normal. Normal range of motion and normal capillary refill. No swelling, tenderness, bony tenderness or crepitus. Normal pulse. Left foot: Normal range of motion and normal capillary refill. No swelling, tenderness, bony tenderness or crepitus. Normal pulse. Comments: Varicose veins. Right 5th toe onychomycosis and small callous Feet: Right foot: Protective Sensation: 5 sites tested. 3 sites sensed. Skin integrity: Skin integrity normal. No warmth. Left foot: Protective Sensation: 5 sites tested. 3 sites sensed. Skin integrity: Skin integrity normal. No warmth. Lymphadenopathy: Cervical: No cervical adenopathy. Skin: General: Skin is warm. Capillary Refill: Capillary refill takes less than 2 seconds. Findings: No rash. Neurological: General: No focal deficit present. Mental Status: She is alert and oriented to person, place, and time. Coordination: Coordination normal. Psychiatric: Mood and Affect: Mood normal. Behavior: Behavior normal. Judgment: Judgment normal. Recent Pertinent Labs and Radiology UA: + nitrates. Neg leukocytes. + blood. + protein Assessment/Plan 1. Burning with urination - Urine culture (clean catch); Future - POCT urinalysis dipstick only - Ultrasound retroperitoneal complete; Future 2. Dysuria - Ultrasound retroperitoneal complete; Future 3. Proteinuria, unspecified type - Ultrasound retroperitoneal complete; Future 4. Type 2 diabetes mellitus without complication, without long-term current use of insulin ([facility] [place] Medications Discontinued During This Encounter Medication Reason insulin glargine (LANTUS U-100 INSULIN) 100 unit/mL injection Reorder Patient Instructions Diagnosis today of Acute UTI with nitrates, protein, glucose (jardiance) which is a bladder infection with blood from unknown source. Repeat Urine specimen here at [facility] in 2 weeks to make sure infection and has resolved. Begin Macrobid 100mg 1 po BID x 7 days as antibiotic, complete all. Stop if hives, severe diarrhea. Begin Pyridium 1 every 8 hours for the next 2 days as needed for bladder spasm, burning. Bladder and Renal US has been advised and ordered due to right sided back achiness. No cva tenderness. Urine culture ordered Cannot exclude etiology of kidney or bladder stone, tumor, mass. Push 60 oz of water a day or non-alcoholic, non-caffeine beverages. DM: Glucose is much better on lantus 10 units at night. Increase to 12 units nightly. Routine DM visit in 2 weeks. Will get A1C and repeat UA then. Seek additional medical care in office or ER if fever > 100.5, dizziness, lightheadedness, sharp pain in low back on only one side, voiding blood, chest pain, shortness of breath. Cece Hannon PA-C 08/27/24 1404 documented in this encounter [facility] 08-27-2024 Instructions Cece Hannon PA-C - 08/27/2024 1:15 PM EDT Diagnosis today of Acute UTI with nitrates, protein, glucose (jardiance) which is a bladder infection with blood from unknown source. Repeat Urine specimen here at [facility] in 2 weeks to make sure infection and has resolved. Begin Macrobid 100mg 1 po BID x 7 days as antibiotic, complete all. Stop if hives, severe diarrhea. Begin Pyridium 1 every 8 hours for the next 2 days as needed for bladder spasm, burning. Bladder and Renal US has been advised and ordered due to right sided back achiness. No cva tenderness. Urine culture ordered Cannot exclude etiology of kidney or bladder stone, tumor, mass. Push 60 oz of water a day or non-alcoholic, non-caffeine beverages. DM: Glucose is much better on lantus 10 units at night. Increase to 12 units nightly. Routine DM visit in 2 weeks. Will get A1C and repeat UA then. Seek additional medical care in office or ER if fever > 100.5, dizziness, lightheadedness, sharp pain in low back on only one side, voiding blood, chest pain, shortness of breath. documented in this encounter [facility] 07-26-2024 Miscellaneous Notes Care Coordination Outreach performed to coordinate overdue appointments, testing, and/or follow-up care: Yes Audit/Outreach Date: July 26, 2024 Reason: Chronic Condition Appt and Medicare Annual Wellness Visit Method: Telephone Outreach Attempt: First Outcome: Left Message Next PCP Appointment: N/A Tests/Referrals Pended: N/A Resources/Education Provided: Additional Comments: Attempted to reach patient to schedule a follow up or well visit. documented in this encounter [facility] 07-26-2024 Telephone encounter Note Care Coordination Outreach performed to coordinate overdue appointments, testing, and/or follow-up care: Yes Audit/Outreach Date: July 26, 2024 Reason: Chronic Condition Appt and Medicare Annual Wellness Visit Method: Telephone Outreach Attempt: First Outcome: Left Message Next PCP Appointment: N/A Tests/Referrals Pended: N/A Resources/Education Provided: Additional Comments: Attempted to reach patient to schedule a follow up or well visit. [facility] 07-01-2024 Miscellaneous Notes Care Coordination Outreach performed to coordinate overdue appointments, testing, and/or follow-up care: Yes Audit/Outreach Date: July 01, 2024 Reason: DM Eye Exam and Medicare Annual Wellness Visit Method: Telephone and MyChart Outreach Attempt: First Outcome: Left Message and Letter Sent Next PCP Appointment: N/A Tests/Referrals Pended: N/A Resources/Education Provided: Additional Comments: Unable to reach patient by telephone to schedule appointment. Letter sent. documented in this encounter [facility] 07-01-2024 Telephone encounter Note Care Coordination Outreach performed to coordinate overdue appointments, testing, and/or follow-up care: Yes Audit/Outreach Date: July 01, 2024 Reason: DM Eye Exam and Medicare Annual Wellness Visit Method: Telephone and MyChart Outreach Attempt: First Outcome: Left Message and Letter Sent Next PCP Appointment: N/A Tests/Referrals Pended: N/A Resources/Education Provided: Additional Comments: Unable to reach patient by telephone to schedule appointment. Letter sent. [facility] 07-01-2024 History of Present illness Narrative RADIOLOGY SERVICE PROGRESS NOTE SERVICE DATE: 07/01/2024 SERVICE TIME: 8:19 AM PATIENT IDENTITY VERIFICATION COMPLETED USING TWO (2) STANDARD IDENTIFIERS: Name and Date of confirmed by patient verbally FALL SCREENING: Has the patient had 2 falls in the last year or 1 fall with injury or currently using an Ambulatory Assistive Device (Walker, Cane, Wheelchair, Crutches, etc.)? No PATIENT GENDER DATA: .female ALLERGIES: n/a MEDICATIONS REVIEWED: Not applicable PATIENT RELEVANT IMPLANT DATA REVIEWED: Not Applicable PATIENT PRESENTS WITH AN IMPLANTABLE OR ATTACHED MANAGER CREDIT COLLECTIONS: No CREATININE: Creatinine Date Value Ref Range Status 06/10/2024 0.84 0.58 - 0.96 mg/dL Final 06/13/2023 0.89 0.58 - 0.96 mg/dL Final 02/06/2020 0.86 0.58 - 0.96 mg/dL Final Estimated Glomerular Filtration Rate Date Value Ref Range Status 06/10/2024 83 >=60 mL/min/1.73m Final Comment: Estimated Glomerular Filtration Rate (eGFR) is calculated using the 2020 CKD-EPI creatinine equation. This equation utilizes serum creatinine, sex, and age as parameters. The creatinine assay has traceable calibration to isotope dilution-mass spectrometry. Refer to KDIGO guidelines for clinical interpretation. In patients with unstable renal function, e.g. those with acute kidney injury, the eGFR may not accurately reflect actual GFR. eGFR- Date Value Ref Range Status 02/06/2020 >60 Final P.O.C.T. RESULTS: N/A July 01, [address] PERFORMED: No IV SITE: Ambulatory: Not applicable POST EXAM PIV STATUS: Not applicable PROCEDURE TYPE: NM GET: 1.0 mCi Tc99m SULFUR COLLOID was administered orally via 4 ounces of Egg Beaters,2 pieces of toast, 1 ounce of jelly with 8 ounces of water orally ADMINISTRATION TIME: 08:05 PATIENT DISCHARGED TO: Ambulatory patient, left [place] department area. Is this a therapy: No A Diagnostic radioactive procedure has taken place, with no further precautions necessary other than routine body substance precautions. More information regarding radiation safety can be found using this link: [email or web address] %[email or web address] SIGNATURE: RT Preston(Chemo) PATIENT NAME: Naila Beltran DATE: July 01, 2024 TIME: 8:19 AM PAGER/CONTACT #: documented in this encounter [facility] 07-01-2024 Note HNO ID: [id number] Author: MARTINE RODRIGUEZ RT(R) Service: Nuclear Medicine Author Type: Technologist Type: Progress Notes Filed: 07/01/2024 08:20 Note Text: RADIOLOGY SERVICE PROGRESS NOTE SERVICE DATE: 07/01/2024 SERVICE TIME: 8:19 AM PATIENT IDENTITY VERIFICATION COMPLETED USING TWO (2) STANDARD IDENTIFIERS: Name and Date of confirmed by patient verbally FALL SCREENING: Has the patient had 2 falls in the last year or 1 fall with injury or currently using an Ambulatory Assistive Device (Walker, Cane, Wheelchair, Crutches, etc.)? No PATIENT GENDER DATA: .female ALLERGIES: n/a MEDICATIONS REVIEWED: Not applicable PATIENT RELEVANT IMPLANT DATA REVIEWED: Not Applicable PATIENT PRESENTS WITH AN IMPLANTABLE OR ATTACHED MANAGER CREDIT COLLECTIONS: No CREATININE: Creatinine Date Value Ref Range Status 06/10/2024 0.84 0.58 - 0.96 mg/dL Final 06/13/2023 0.89 0.58 - 0.96 mg/dL Final 02/06/2020 0.86 0.58 - 0.96 mg/dL Final Estimated Glomerular Filtration Rate Date Value Ref Range Status 06/10/2024 83 >=60 mL/min/1.73m? Final Comment: Estimated Glomerular Filtration Rate (eGFR) is calculated using the 2020 CKD-EPI creatinine equation. This equation utilizes serum creatinine, sex, and age as parameters. The creatinine assay has traceable calibration to isotope dilution-mass spectrometry. Refer to KDIGO guidelines for clinical interpretation. In patients with unstable renal function, e.g. those with acute kidney injury, the eGFR may not accurately reflect actual GFR. eGFR- Date Value Ref Range Status 02/06/2020 >60 Final P.O.C.T. RESULTS: N/A July 01, [address] PERFORMED: No IV SITE: Ambulatory: Not applicable POST EXAM PIV STATUS: Not applicable PROCEDURE TYPE: NM GET: 1.0 mCi Tc99m SULFUR COLLOID was administered orally via 4 ounces of Egg Beaters,2 pieces of toast, 1 ounce of jelly with 8 ounces of water orally ADMINISTRATION TIME: 08:05 PATIENT DISCHARGED TO: Ambulatory patient, left [place] department area. Is this a therapy: No A Diagnostic radioactive procedure has taken place, with no further precautions necessary other than routine body substance precautions. More information regarding radiation safety can be found using this link: [email or web address] 20Diagnostic%20Nuclear%20Medicine% 20Procedures.[email or web address] SIGNATURE: RT Preston(R) PATIENT NAME: Naila Beltran DATE: July 01, 2024 TIME: 8:19 AM PAGER/CONTACT #: [facility] 06-28-2024 Telephone encounter Note Spoke with PT to confirm apt and to explain the exam and any prep. [facility] 06-28-2024 Miscellaneous Notes Spoke with PT to confirm apt and to explain the exam and any prep. documented in this encounter [facility] 06-18-2024 Note [employer] Orthopedics Pinched Nerve A pinched nerve is an injury that occurs when too much pressure is placed on a nerve. This pressure can cause pain, burning, and muscle weakness in places that the nerve supplies feeling to, such as an arm, hand, or leg, or the back or neck. If a nerve is severely pinched or has been pinched for a long time, permanent nerve damage can occur. What are the causes? This condition may be caused by: ? A nerve passing through a narrow area between bones or other body structures. ? Arthritis that causes bones to press on a nerve. ? Loss of blood supply to a nerve. ? A nerve being stretched from an injury. ? A sudden injury with swelling. ? Long-term wear on the nerve. ? Age-related changes in the spine. What are the signs or symptoms? The most common symptoms of a pinched nerve are feeling a tingling sensation and numbness. Other symptoms include: ? Pain that spreads from one area of the body part to another. ? A burning feeling. ? Muscle weakness. How is this diagnosed? This condition may be diagnosed based on: ? A physical exam. During the exam, your health care provider will: ? Check for numbness and muscle weakness. ? Move affected body parts to test for pain. ? X-rays to check for bone damage. ? An MRI or CT scan to check for conditions that may be causing nerve damage. ? An electromyogram and nerve conduction study to evaluate how your muscles and nerves communicate. How is this treated? A pinched nerve is usually treated first by: ? Resting the affected body area. ? Using devices to help you move without pain (supportive or protective devices), such as a splint, brace, or neck collar. Other treatments depend on your symptoms and the amount of nerve damage you have. Other treatments may include: ? Medicines, such as: ? Injections of numbing medicine. ? NSAIDs. ? Pain medicines. ? Steroid medicines. These may be given as a pill or as an injection. ? Physical therapy to relieve pain, maintain movement, and improve muscle strength. ? Surgery. This may be done if other treatments do not work. Follow these instructions at home: If you have a removable collar, splint, or brace: ? Wear the collar, splint, or brace as told by your health care provider. Remove it only as told by your health care provider. ? Check the skin around the collar, splint, or brace every day. Tell your health care provider about any concerns. ? Loosen the collar, splint, or brace if any part of your body tingles, becomes numb, or turns cold and blue. ? Keep the collar, splint or brace clean. ? If the collar, splint, or brace is not waterproof: ? Do not let it get wet. ? Cover it with a watertight covering when you take a bath or shower. ? Ask your health care provider when it is safe to drive if you have a collar, splint, or brace. Managing pain and stiffness ? If directed, put ice on the affected area. To do this: ? If you have a removable collar, splint, or brace, remove it as told by your health care provider. ? Put ice in a plastic bag. ? Place a towel between your skin and the bag. ? Leave the ice on for 20 minutes, 2?3 times a day. ? Remove the ice if your skin turns bright red. This is very important. If you cannot feel pain, heat, or cold, you have a greater risk of damage to the area. ? If directed, apply heat to the affected area before you exercise. Use the heat source that your health care provider recommends, such as a moist heat pack or a heating pad. ? Place a towel between your skin and the heat source. ? Leave the heat on for 20?30 minutes. ? Remove the heat if your skin turns bright red. This is especially important if you are unable to feel pain, heat, or cold. You may have a greater risk of getting burned. General instructions ? Take [id number] and prescription medicines only as told by your health care provider. ? Wear supportive or protective devices as told by your health care provider. ? Do physical therapy exercises as directed by your health care provider or physical therapist. ? Return to your normal activities as told by your health care provider. Ask your health care provider what activities are safe for you. ? Rest as needed. ? Keep all follow-up visits. This is important. Where to find more information ? National [place] of Neurological Disorders and Stroke: www.ninds.nih.gov Contact a health care provider if: ? Your condition does not improve with treatment. ? Your pain, numbness, or weakness suddenly gets worse. ? You have new weakness in your arms or legs. Get help right away if you: ? Have loss of bladder control (urinary incontinence) or you cannot urinate. ? Cannot control bowel movements (fecal incontinence). These symptoms may be an emergency. Get help right away. Call 911. ? Do not wait t (more content not included)... [facility] 06-10-2024 Note Addended by: STEF MURCIA on: 06/10/2024 11:19 AM Modules accepted: Orders [facility] 06-10-2024 Miscellaneous Notes Addended by: STEF MICHELE on: 06/10/2024 11:19 AM Modules accepted: Orders documented in this encounter [facility] 06-10-2024 Instructions Stef Michele MD - 06/10/2024 10:41 AM EDT F/u in 1 year Continue eliquis 2.5mg BID documented in this encounter [facility] 06-10-2024 History of Present illness Narrative DATE OF ENCOUNTER: June 10, 2024 ATTENDING PHYSICIAN: Dr. Stef Michele Some of the elements of this note have been copied from Gardenia Gupta previous progress note dated 06/13/23. All the information has been reviewed carefully. CC: Follow up HPI Naila Beltran is a 52 year old female who presents in follow up with a hypercoagulable state. - August 2008: She woke up from bed and had warm swollen left leg. [facility] diagnosed with DVT. She was negative for hereditary thrombophilias. She had a non-retractable IVC filter placed at this time. She took warfarin for a few months. 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 She was initially on 20 mg but had heavy and long menstrual periods needing an emergent hysterectomy and was then placed on 10 mg dosing. - 2017: Switched to low dose eliquis 2.5 mg BID for insurance reasons. LAC testing at this time was negative - 2019: Grafting #2 done at [facility] (Dr. Scanlon) She is on Eliquis 2.5 mg BID. She has a heart monitor per cardiology for palpitations. She denies any new clots or bleeding issues. She has vascular disease and continues to be followed and treated at [facility]. She recently had a colonoscopy and EGD with biopsies by Dr. Garcia that showed gastritis and possible irritable bowel syndrome. She is struggling with eating foods as many foods just come right back up. Had gastric emptying study which showed moderate gastroparesis. She is seeing GI. 06/10/24: - Doing well. - C/o chronic pain and swelling in the left leg. - EGD in July 2023. - Due for mammogram this year Current Outpatient Medications Medication Sig apixaban (ELIQUIS) 2.5 mg tab(s) Take 1 tablet by mouth two times a day. pantoprazole DR (PROTONIX) 40 mg tablet Take 1 tablet by mouth two times a day. metoprolol tartrate, short acting, (LOPRESSOR) 50 mg tablet Take 50 mg by mouth two times a day. tiZANidine (ZANAFLEX) 2 mg tablet Take 2 mg by mouth every 8 hours as needed (neck pain). lubiprostone (AMITIZA) 8 mcg capsule Take 1 capsule by mouth two times a day with meals. iv contrast (will be provided with radiology [...] in the CT contrast administration guidelines link. enteric contrast (will be provided with radiology test) For CT ABD/PEL W IVCON Routine order Administer, As Directed One Time Only, via Oral, Rectal, both Oral and Rectal, Enteric Tube, Stoma or Indwelling Catheter, Enteric Contrast as designated per enteric contrast guidelines glyBURIDE (DIABETA) 5 mg tablet Take 5 mg by mouth. Takes 1 tablet with each small meal. Usually about 3 per day cetirizine (ZYRTEC) 10 mg tablet Take 10 mg by mouth. Fluticasone Furoate 27.5 mcg/actuation nasal spray fluticasone Fluticasone Furoate Active 1 SPRAY Intranasal Daily June 13, 2017 7:29am 06-13-2017 [facility] ([id number]) sitaGLIPtin-metFORMIN (JANUMET) 50-500 mg per tablet Take 1 tablet by mouth twice daily with meals. aspirin 81 mg chewable tablet q 24 HR. albuterol HFA (PROVENTIL HFA, VENTOLIN HFA) 90 mcg/actuation inhaler Ventolin HFA 90 mcg/actuation aerosol inhaler levETIRAcetam XR (KEPPRA XR) 500 mg 24 hr tablet Take 1,500 mg by mouth daily at bedtime. atorvastatin (LIPITOR) 40 mg tablet Take 40 mg by mouth once daily. Comp.Stocking,Thigh,Long,X-Lrg misc Wear stocking daily Multivitamins ORAL Chew None Entered No current facility-administered medications for this visit. ALLERGIES Allergen Reactions Aspirin Unknown Heparin Analogues Unknown Keflex [Cephalexin] Hives Penicillin G Hives PAST MEDICAL HISTORY Ischemic Coronary Artery Disease (EF 42% in 2019) follows with Dr. 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 CARDIOVASCULAR: Negative for chest pain, leg swelling or palpitations. GI: Negative for abdominal discomfort, blood in stools or black stools or change in bowel habits +vomiting MUSCULOSKELETAL: Negative for joint pain or swelling, back pain or muscle pain. SKIN: Negative for lesions, rash, and itching. PSYCH: Negative for sleep disturbance, mood disorder and recent psychosocial stressors. HEMATOLOGY/LYMPHOLOGY: Negative for prolonged bleeding, bruising easily or swollen nodes. NEURO: No history of headaches, syncope, paralysis, seizures or tremors All other reviewed and negative other than HPI. PHYSICAL EXAM: [facility] 04/01/2011 General: Alert and oriented, no distress, pleasant and cooperative. Heart: Regular, normal S1 and S2, no murmurs, rubs, or gallops Lungs: Clear to auscultation bilaterally Abdomen: Benign Extremities: Feet/ankles without edema, posterior tibial pulses full and symmetrical Hemoglobin (g/dL) Date Value 06/13/2023 11.7 02/06/2020 12.4 Hematocrit (%) Date Value 06/13/2023 36.7 02/06/2020 39.4 WBC (k/uL) Date Value 06/13/2023 10.98 02/06/2020 7.58 Platelet Count (k/uL) Date Value 06/13/2023 236 02/06/2020 263 ASSESSMENT/PLAN: 1. Factor V Leiden: Recurrent blood clots since 2008; prior therapy with warfarin, Arixtra and xarelto Xarelto changed to eliquis for insurance reasons Continue eliquis 2.5 mg BID for now --refill provided. Tolerating Eliquis well so far. Blood work today is unremarkable. 2. Peripheral Vascular Disease Follows with [facility] (Dr. Scanlon) 3. Ischemic Vascular Disease Follows at [place] (Dr. Christy Moreland) 4. Abdominal symptoms. Follows Dr. Garcia at [facility] , now with gastroparesis See back in 1 year as planned and continue follow-up with GI as scheduled. Stef Michele MD [facility] Hematology/Oncology. CC: Dr. Shiva Garcia, DO Nguyen Cox MD I spent a total of 20 minutes on the date of the service which included preparing to see the patient, [id number] patient care, completing clinical documentation, performing a medically appropriate examination, counseling and educating the patient/family/caregiver, ordering medications, tests, or procedures, independently interpreting results (not separately reported), and communicating results to the patient/family/caregiver . documented in this encounter [facility] 06-10-2024 Note HNO ID: [id number] Author: STEF MICHELE MD Service: ? Author Type: Physician Type: Progress Notes Filed: 06/10/2024 11:18 Note Text: DATE OF ENCOUNTER: June 10, 2024 ATTENDING PHYSICIAN: Dr. Stef Michele Some of the elements of this note have been copied from Gardenia Gupta previous progress note dated 06/13/23. All the information has been reviewed carefully. CC: Follow up HPI Naila Beltran is a 52 year old female who presents in follow up with a hypercoagulable state. - August 2008: She woke up from bed and had warm swollen left leg. [facility] diagnosed with DVT. She was negative for hereditary thrombophilias. She had a non-retractable IVC filter placed at this time. She took warfarin for a few months. 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 She was initially on 20 mg but had heavy and long menstrual periods needing an emergent hysterectomy and was then placed on 10 mg dosing. - 2018: Switched to low dose eliquis 2.5 mg BID for insurance reasons. LAC testing at this time was negative - 2019: Grafting #2 done at [facility] (Dr. Scanlon) She is on Eliquis 2.5 mg BID. She has a heart monitor per cardiology for palpitations. She denies any new clots or bleeding issues. She has vascular disease and continues to be followed and treated at [facility]. She recently had a colonoscopy and EGD with biopsies by Dr. Garcia that showed gastritis and possible irritable bowel syndrome. She is struggling with eating foods as many foods just come right back up. Had gastric emptying study which showed moderate gastroparesis. She is seeing GI. 06/10/24: - Doing well. - C/o chronic pain and swelling in the left leg. - EGD in July 2023. - Due for mammogram this year Current Outpatient Medications Medication Sig apixaban (ELIQUIS) 2.5 mg tab(s) Take 1 tablet by mouth two times a day. pantoprazole DR (PROTONIX) 40 mg tablet Take 1 tablet by mouth two times a day. metoprolol tartrate, short acting, (LOPRESSOR) 50 mg tablet Take 50 mg by mouth two times a day. tiZANidine (ZANAFLEX) 2 mg tablet Take 2 mg by mouth every 8 hours as needed (neck pain). lubiprostone (AMITIZA) 8 mcg capsule Take 1 capsule by mouth two times a day with meals. iv contrast (will be provided with radiology [...] in the CT contrast administration guidelines link. enteric contrast (will be provided with radiology test) For CT ABD/PEL W IVCON Routine order Administer, As Directed One Time Only, via Oral, Rectal, both Oral and Rectal, Enteric Tube, Stoma or Indwelling Catheter, Enteric Contrast as designated per enteric contrast guidelines glyBURIDE (DIABETA) 5 mg tablet Take 5 mg by mouth. Takes 1 tablet with each small meal. Usually about 3 per day cetirizine (ZYRTEC) 10 mg tablet Take 10 mg by mouth. Fluticasone Furoate 27.5 mcg/actuation nasal spray fluticasone Fluticasone Furoate Active 1 SPRAY Intranasal Daily June 13, 2017 7:29am 06-13-2017 [facility] (75238) sitaGLIPtin-metFORMIN (JANUMET) 50-500 mg per tablet Take 1 tablet by mouth twice daily with meals. aspirin 81 mg chewable tablet q 24 HR. albuterol HFA (PROVENTIL HFA, VENTOLIN HFA) 90 mcg/actuation inhaler Ventolin HFA 90 mcg/actuation aerosol inhaler levETIRAcetam XR (KEPPRA XR) 500 mg 24 hr tablet Take 1,500 mg by mouth daily at bedtime. atorvastatin (LIPITOR) 40 mg tablet Take 40 mg by mouth once daily. Comp.Stocking,Thigh,Long,X-Lrg misc Wear stocking daily Multivitamins ORAL Chew None Entered No current facility-administered medications for this visit. ALLERGIES Allergen Reactions Aspirin Unknown Heparin Analogues Unknown Keflex [Cephalexin] Hives Penicillin G Hives PAST MEDICAL HISTORY Ischemic Coronary Artery Disease (EF 42% in 2019) follows with Dr. Christy Moreland at [facility]/[place] Peripheral Vascular Disease; stents x 2 (2008, 2011) Carotid artery disease Epilepsy on levetiracetam Obesity Diabetes Irritable Bowel Syndrome PAST SURGICAL HISTORY Vascular stents in iliac vessels IVC filter Unclear knee procedures Grafting, vascular Emergency Hysterectomy in 2011 heavy menses, unclear etiology; needed blood transfusions FAMILY HISTORY Grandfather with blood clots; from stroke at the age of 68 Mother with heart disease, diabetes, COPD F (more content not included)... [facility] 04-29-2024 Telephone encounter Note Please sign new order and send to clerical to schedule Katja Rios RN April 29, 2024 3:29 PM [facility] 04-29-2024 Miscellaneous Notes Please sign new order and send to clerical to schedule Katja Rios RN April 29, 2024 3:29 PM Patient states for the last 4 months she has been fighting sinus infections. She had scheduled the post GES studies and had to cancel it twice. They are telling her she needs a new order in the system as she states she is feeling better and feels she can do the testing now she just needs another order. documented in this encounter [facility] 04-29-2024 Telephone encounter Note Patient states for the last 4 months she has been fighting sinus infections. She had scheduled the post GES studies and had to cancel it twice. They are telling her she needs a new order in the system as she states she is feeling better and feels she can do the testing now she just needs another order. [facility] Work Phone: 04-18-2024 History of Present illness Narrative Images from the original note were not included. Subjective Patient ID: Naila Beltran is a 53 y.o. female. Chief Complaint Chief Complaint Patient presents with Follow-up 3 month f/u, mammogram scheduled, sick ongoing a month with sinus HPI HPI 01/04/24 [facility] recheck DM: As advised added jardiance 25mg qd for A1C of 8.3 Now taking jardiance 25mg and glyburide 10mg BID. Was off both for over a month. AM Fasting high around 287. Low of 84. AM 214-287. No foots sores. Up to void at least 5-7 times/night. 3 wks with sinus frontal and maxillary pain/pressure. Tried mucinex and benadryl without relief. Feels anx ready. No fevers/chills/body aches. Thick yellow from nares, pressure in ears. No chest cough, sob/wheezing. Otherwise doing well. No seizures, no cp, no fevers. Med compliant. Past Medical History Past Medical History: Diagnosis Date Anemia iron deficiency Anxiety Arthritis Back pain with right-sided sciatica Cataract Cervical disc disease Cervical radiculopathy Cervical spondylosis Cobalamin deficiency COVID-19 02/14/2020 COVID-19 virus detected 02/08/2020 Deep vein thrombosis (DVT) of lower extremity ([facility] 05/25/2017 Depression Diabetic eye exam ([facility] [place] 06/06/2017 Dr. Hicks: diabetic retinopathy not detected-distance visual acuity:OD- 20/20, OS-20/20, re-evaluation 1 yr. Dilation of thoracic aorta ([facility] [place]) Elevated LDL cholesterol level Eye exam, routine 08/14/2009 Dr. Hicks, presbyopia OU Fatigue Fatty liver Gallstone Gastroesophageal reflux disease without esophagitis 2020 Upper [facility]-Dr. Garcia Generalized convulsive epilepsy ([facility] [place]) Headache, classical migraine, intractable, with status migrainosus Dr. Julio pinched nerve in neckl Heterozygous factor V Leiden mutation (CMS-HCC) Hypercoagulable state (CMS-HCC) Hyperlipidemia Hypoalphalipoproteinemia Migraine without aura and without status migrainosus, not intractable 05/09/2017 Mood swings MRSA (methicillin resistant Staphylococcus aureus) Narrowing of intervertebral disc space Nevus anemicus Obesity Pain in limb Seizures (CMS-HCC) 3 mo old, 17 1/2 yrs old, 29 yrs old, last one 2012 Shingles Skin sensation disturbance Thyroid adenoma Thyroid nodule 11/21/2018 US: Stable right thyroid nodule. Interval enlargement of left nodule, 1.6cm from 2017 Varicose veins of legs Visual impairment Vitamin D deficiency Past Surgical History Past Surgical History: Procedure Laterality Date ANGIOGRAPHY 03/15/2017 Limited femoral angiography, bilateral selective coronary angiography, placement of a 6-Argent[place] MynxGrip closure device. Impression: Mild disease of the left anterior descending coronary artery. Normal global left ventricular systolic function by noninvasive imaging. BYPASS GRAFT 06/25/2018 Venous from right to left Dr. [place] CAROTID DOPPLER COMP-BI 11/29/2016 IMPRESSION: Minimal plaquing with no significant hemodynamic stenosis of the bile internal carotid arteries. Suggested complex right thyroid lobe nodule. Dedicated right thyroid us follow-up may be considered. COLONOSCOPY 04/22/2013 COLONOSCOPY 10/11/2019 CT ANGIO LOWER EXTREMITIES-BILATERAL Bilateral 02/14/2017 No evidence deep vein thrombosis.Phleboliths, lt. peroneal vein. Small lt. external iliac veins.Overlapping stents lt. common & proximal iliac veins.Ectrinsic compression,non-stented proximal lt. common iliac vein between rt. common iliac artery & spine.Subcutaneous varicosities, both LE, lt greater than rt.Asymmetricals subcutaneous edematous changes lt.Absent rt.greater saphenous vein,lt cyst ov CT CHEST/ABD/PELVIS WITH CONTRAST 01/03/2016 IMPRESSION:CT chest fails to demonstrate evidence of pulmonary emboli. Borderline/mild aneurysmal ascending thoracic aorta similar to prior exam. No evidence of dissection/leak. Patchy ground glass densities bilaterally, mild congestive changes interstitial infiltrates. abdomen/plevis, mild fatty infiltration liver. Multiple gallstones-gallbladder.Likely tiny rt renal, adnexal cysts. FINE NEEDLE ASPIRATION Right 01/09/2017 Thyroid: Benign, consistent with benign follicular nodule with Hurthle cell changes. Groups of follicuar cells, show Hurthie cell changes are present, forming variable sized follicles, background of abundant peripheral blood and colloid. Increased lymphocytes, suggestive of lymphocytic thyroiditis. HYSTERECTOMY 07/29/2011 INJECTION ANESTHETIC AGENT TO CERVICAL PLEXUS [id number], 06/14/2017, 07/10/2017, 07/31/2017 Dr. Adan Julio, cervical facet medial branch block right at C3, C4, and C5 under fluroscopic guidance MG MAMMOGRAM DIAGNOSTIC BILATERAL W/CAD 02/02/2017 IMPRESSION: No mammographic evidence of malignancy. Routine follow-up one yr.. Clinical management is recommended for patient's nipple sensitivity. OTHER SURGICAL HISTORY 2009 left leg- several surgical procedures to clean up, 2 stents in left groin OTHER SURGICAL HISTORY 2009 belly button OTHER SURGICAL HISTORY 02/27/2011 bypass OTHER SURGICAL HISTORY koko filter OTHER SURGICAL HISTORY neck injection OTHER SURGICAL HISTORY 02/14/2017 STR cardiac stress/lexiscan-Impression: Uncomplicated pharmacological stress test, negative by electrocardiographic criteria. Nuclear medicine report will follow separately. OTHER SURGICAL HISTORY 02/14/2017 NM miya perf SPECT rest & str: Conclusion-No clear pattern of ischemia or myocardial infarction. Abnormal left ventricular systolic function with calculated ejection fraction of 46%. No previous study available for comparison. PYLOROPLASTY 10/18/2023 [facility]- Dr. Bowling, general surgeon RADIOFREQUENCY ABLATION 10/10/2014 cervical medial branch radiofrequency ablation-cervical spondylosis ROTATOR CUFF REPAIR Left 2017 left shoulder US CAROTID DUPLEX COMP-BILAT 11/29/2016 [facility] [place]. minimal plaques, no high grade stenosis US THYROID 12/07/2016 IMPRESSION: 2.1cm heterogeneous right mid nodule. 6 mm left midpole hypoechoic ill-defined nodule. Dr. Delvis Dominguez-[facility] US THYROID 11/21/2018 Left nodule interval enlargement of 1.6cm, Stable Right VENOUS DUPLEX - LIMITED 12/27/2013 IMPRESSION: Grossly unremarkable imaging study, visulaized deep venous system of the left leg. No evidence of deep venous thrombosis. Family History Family History Problem Relation Age of Onset COPD Mother Emphysema Mother Diabetes Mother type II Heart disease Mother Early Mother Hypertension Mother Other Mother acute myocardial infarction Arthritis Father Diabetes Father type II Hyperlipidemia Father Hypertension Father Hyperlipidemia Brother Diabetes Maternal Grandmother Cancer Maternal Grandmother No Known Problems Maternal Grandfather Cancer Paternal Grandmother Hyperlipidemia Paternal Grandmother Hypertension Paternal Grandmother Thyroid Issues Paternal Grandmother Stroke Paternal Grandfather Cancer Paternal Grandfather Diabetes Paternal Grandfather Cancer Paternal Uncle Cancer Paternal Aunt Cancer Maternal Uncle Social History Social History Socioeconomic History Marital status: Spouse name: Not on file Number of children: Not on file Years of education: Not on file Highest education level: GED or equivalent Occupational History Occupation: disability Tobacco Use Smoking status: Never Smokeless tobacco: Never Vaping Use Vaping status: Never Used Substance and Sexual Activity Alcohol use: No Drug use: No Sexual activity: Yes Partners: Male control/protection: None Other Topics Concern Not on file Social History Narrative Not on file Social Drivers of Health Financial Resource Strain: Low Risk (06/28/2023) Overall Financial Resource Strain (CARDIA) Difficulty of Paying Living Expenses: Not hard at all Food Insecurity: No Food Insecurity (12/19/2023) Hunger Screening Food Insecurity - Worry: Never True Food Insecurity - Inability: Never True Transportation Needs: No Transportation Needs (06/28/2023) PRAPARE - Transportation Lack of Transportation (Medical): No Lack of Transportation (Non-Medical): No Physical Activity: Sufficiently Active (04/07/2022) Exercise Vital Sign Days of Exercise per Week: 7 days Minutes of Exercise per Session: 60 min Stress: Stress Concern Present (04/07/2022) [place] [employer] - Occupational Stress Questionnaire Feeling of Stress : To some extent Social Connections: Unknown (04/07/2022) Social Connection and Isolation Panel [NHANES] Frequency of Communication with Friends and Family: Three times a week Frequency of Social Gatherings with Friends and Family: Patient declined Attends Jehovah'S Witness Services: Patient declined Active Member of Clubs or Organizations: No Attends Club or Organization Meetings: Patient declined Marital Status: Patient declined Interpersonal Safety: Unknown (04/20/2023) Received from [facility] [place] Safety & Environment Fear of Current or Ex-Partner: Not on file Emotionally Abused: Not on file Physically Abused: Not on file Sexually Abused: Not on file Physically or Sexually Abused: Not on file Housing Instability: Low Risk (06/28/2023) Housing Instability Housing Instability: No Allergies Allergies Allergen Reactions Heparin Thickens blood, raises blood pressure Cephalexin Hives and Other (See Comments) Heparin (Porcine) Other (See Comments) Penicillins Hives and Other (See Comments) Current Medications Current Outpatient Medications Medication Sig Dispense Refill albuterol (PROVENTIL HFA;VENTOLIN HFA) 90 mcg/actuation inhaler Inhale 2 puffs in the morning and 2 puffs before bedtime. apixaban (ELIQUIS) 2.5 mg tablet Take 1 tablet (2.5 mg total) by mouth in the morning and 1 tablet (2.5 mg total) before bedtime. aspirin 81 mg Take 1 tablet (81 mg total) by mouth daily. 90 tablet 3 atorvastatin (LIPITOR) 40 mg tablet Take 1 tablet (40 mg total) by mouth in the morning. 90 tablet 3 blood sugar diagnostic (CONTOUR NEXT TEST STRIPS) strip TEST BEFORE BREAKFAST AND BEDTIME 100 strip 3 blood sugar diagnostic (ONETOUCH ULTRA TEST) strip 1 strip by other route in the morning and 1 strip before bedtime. 200 strip 3 blood-glucose meter (ONETOUCH ULTRA2 METER) [facility] [place] TO CHECK GLUCOSE TWICE DAILY 1 each 0 cetirizine (ZyrTEC) 10 mg tablet Take 1 tablet (10 mg total) by mouth in the morning for 30 days. 30 tablet 5 cholecalciferol, vitamin D3, (VITAMIN D3) 2,000 units capsule Take 1 capsule (2,000 Units total) by mouth in the morning. 90 capsule 3 glyBURIDE (DIABETA) 5 mg tablet Take 2 tablets (10 mg total) by mouth in the morning and 2 tablets (10 mg total) in the evening. Take with meals. Do all this for 180 days. 360 tablet 1 lancets (MICROLET LANCET) [facility] [place] 2 TIMES A DAY 200 each 1 levETIRAcetam XR (KEPPRA XR) 500 mg 24 hr tablet Take 3 tablets (1,500 mg total) by mouth nightly. 90 tablet 11 metoprolol tartrate (LOPRESSOR) 25 mg tablet Take 2 tablets (50 mg total) by mouth in the morning and 2 tablets (50 mg total) before bedtime. azithromycin (ZITHROMAX) 250 mg tablet Take 2 tablets the first day, then 1 tablet daily for 4 days. 6 tablet 0 benzonatate (TESSALON PERLES) 200 mg capsule Take 1 capsule (200 mg total) by mouth 3 (three) times a day as needed for cough for up to 10 days. 30 capsule 0 busPIRone (BUSPAR) 10 mg tablet Take 1 tablet (10 mg total) by mouth 3 (three) times a day. 90 tablet 5 empagliflozin (JARDIANCE) 25 mg tablet tablet Take 1 tablet (25 mg total) by mouth every morning for 180 days. TAKE 1 TABLET BY MOUTH IN THE MORNING FOR 90 DAYS 30 tablet 5 guaiFENesin (MUCINEX) 600 mg tablet extended release 12hr Take 1 tablet (600 mg total) by mouth every 12 (twelve) hours for 10 days. 20 tablet 0 insulin glargine (LANTUS U-100 INSULIN) 100 unit/mL injection Inject 0.1 mL (10 Units total) under the skin nightly for 30 days. 10 mL 1 VENTOLIN HFA 90 mcg/actuation inhaler inhale 2 puffs by mouth four times a day if needed for wheezing or shortness of breath (Patient not taking: Reported on 04/18/2024) 18 g 3 No current facility-administered medications for this visit. Review of Systems Review of Systems Constitutional: Negative for activity change, appetite change, fatigue, fever and unexpected weight change. HENT: Positive for sinus pressure and sinus pain. Negative for congestion, ear pain and sore throat. Eyes: Positive for visual disturbance (right eye blurred vision/cataract). Negative for discharge and redness (resolved s/p covid). Respiratory: Negative for cough and shortness of breath. Cardiovascular: Negative for chest pain and leg swelling. Gastrointestinal: Negative for abdominal distention, abdominal pain, anal bleeding, blood in stool, constipation, diarrhea, nausea and vomiting. GI upset, chronic-seeing specialist. EGD/C-scope UTD. + mobility issue, undigested food x 48 hours. Endocrine: Negative for polyuria. Blood sugars much lower, improved Genitourinary: Negative for dysuria, flank pain, hematuria and urgency. Musculoskeletal: Negative for back pain, myalgias and neck pain. Skin: Negative for rash and wound. Neurological: Positive for seizures (controlled, neurology yearly, keppra compliant). Negative for dizziness, weakness, numbness and headaches. Psychiatric/Behavioral: Negative for confusion and sleep disturbance. The patient is not nervous/anxious. Objective Vitals BP 136/82 Pulse 76 Temp 36.3 C (97.3 F) Ht 167.6 cm (5' 6 ) Wt 109.8 kg (242 lb) LMP (LMP Unknown) SpO2 96% BMI 39.06 kg/m Physical Exam Physical Exam Vitals reviewed. Constitutional: General: She is not in acute distress. Appearance: She is well-developed. She is obese. She is not ill-appearing or diaphoretic. Comments: Pt is calm. In NAD. Good historian, pleasant, appropriate HENT: Head: Normocephalic and atraumatic. Right Ear: Tympanic membrane and ear canal normal. No middle ear effusion. Tympanic membrane is not erythematous. Left Ear: Tympanic membrane and ear canal normal. No middle ear effusion. Tympanic membrane is not erythematous. Nose: Mucosal edema present. No congestion or rhinorrhea. Right Nostril: No foreign body. Left Nostril: No foreign body. Right Turbinates: Swollen. Not enlarged. Left Turbinates: Swollen. Not enlarged. Right Sinus: Maxillary sinus tenderness and frontal sinus tenderness present. Left Sinus: Maxillary sinus tenderness and frontal sinus tenderness present. Mouth/Throat: Mouth: Mucous membranes are moist. Pharynx: No oropharyngeal exudate. Eyes: Conjunctiva/sclera: Conjunctivae normal. Pupils: Pupils are equal, round, and reactive to light. Neck: Thyroid: No thyromegaly. Mass: right thyroid mass palpable 2cm. Trachea: Trachea normal. Cardiovascular: Rate and Rhythm: Normal rate and regular rhythm. Pulses: Normal pulses. Dorsalis pedis pulses are 2+ on the right side and 2+ on the left side. Posterior tibial pulses are 2+ on the right side and 2+ on the left side. Heart sounds: Normal heart sounds. No murmur heard. No friction rub. Pulmonary: Effort: Pulmonary effort is normal. No respiratory distress. Breath sounds: Normal breath sounds. No wheezing or rales. Chest: Chest wall: No tenderness. Abdominal: General: Bowel sounds are normal. Palpations: Abdomen is soft. Tenderness: There is no abdominal tenderness. There is no guarding or rebound. Negative signs include Moreland's sign. Hernia: No hernia is present. Musculoskeletal: General: No swelling. Normal range of motion. Cervical back: Neck supple. No erythema or rigidity. Right lower leg: No edema. Left lower leg: No edema. Right foot: Normal. Normal range of motion and normal capillary refill. No swelling, tenderness, bony tenderness or crepitus. Normal pulse. Left foot: Normal range of motion and normal capillary refill. No swelling, tenderness, bony tenderness or crepitus. Normal pulse. Comments: Varicose veins. Right 5th toe onychomycosis and small callous Feet: Right foot: Protective Sensation: 5 sites tested. 3 sites sensed. Skin integrity: Skin integrity normal. No warmth. Left foot: Protective Sensation: 5 sites tested. 3 sites sensed. Skin integrity: Skin integrity normal. No warmth. Lymphadenopathy: Cervical: No cervical adenopathy. Skin: General: Skin is warm. Capillary Refill: Capillary refill takes less than 2 seconds. Findings: No rash. Neurological: General: No focal deficit present. Mental Status: She is alert and oriented to person, place, and time. Coordination: Coordination normal. Psychiatric: Mood and Affect: Mood normal. Behavior: Behavior normal. Judgment: Judgment normal. Recent Pertinent Labs and Radiology Assessment/Plan 1. Type 2 diabetes mellitus without complication, without long-term current use of insulin ([facility] [place]) - CBC auto differential; Future - Comprehensive metabolic panel; Future - Microalbumin - Albumin: Creatinine Urine Ratio; Future - Lipid profile; Future - Hemoglobin A1c; Future - TSH; Future - T4, free; Future - guaiFENesin (MUCINEX) 600 mg tablet extended release 12hr; Take 1 tablet (600 mg total) by mouth every 12 (twelve) hours for 10 days. Dispense: 20 tablet; Refill: 0 2. FERNY (generalized anxiety disorder) - busPIRone (BUSPAR) 10 mg tablet; Take 1 tablet (10 mg total) by mouth 3 (three) times a day. Dispense: 90 tablet; Refill: 5 3. Acute non-recurrent maxillary sinusitis 4. Hereditary coagulation factor deficiency ([facility] [place]) 5. SVT (supraventricular tachycardia) ([facility] [place]) 6. Gastroparesis due to DM ([facility] [place]) 7. Emotional instability ([facility] [place]) 8. 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rder ([facility] [place]) 9. Type 2 diabetes mellitus with hyperglycemia, without long-term current use of insulin ([facility] [place]) 10. Aneurysm of ascending aorta without rupture ([facility] [place]) 11. Seizure disorder ([facility] [place]) 12. Hypercoagulable state ([facility] [place]) 13. BMI 40.0-44.9, adult ([facility] [place]) Medications Discontinued During This Encounter Medication Reason sitaGLIPtin-metFORMIN (JANUMET) 50-500 mg per tablet Alternate therapy JARDIANCE 25 mg tablet tablet Reorder busPIRone (BUSPAR) 10 mg tablet Reorder Patient Instructions Fasting labs today Uncontrolled DM: -check A1C -Begin Lantus 10 Units at bedtime, rotate sites -continue jardiance 25mg and glyburide 10mg BID -Check/log sugars Sinusitis -azithromycin -Tessalon -Mucinex Cece Hannon PA-C 04/18/24 1113 [facility]18[facility]24 Instructions Cece Hannon PA-C - 04/18/2024 10:00 AM EST Fasting labs today Uncontrolled DM: -check A1C -Begin Lantus 10 Units at bedtime, rotate sites -continue jardiance 25mg and glyburide 10mg BID -Check/log sugars Sinusitis -azithromycin -Tessalon -Mucinex The following attachments cannot be sent through Care Everywhere.Insulin Glargine? ADULT (Slov[place])documented in this encounter [facility] 02-29-2024 Note Education Materials Endocrinology Hyperglycemia Hyperglycemia is when the sugar (glucose) level in your blood is too high. High blood sugar can happen to people who have or do not have diabetes. High blood sugar can happen quickly. It can be an emergency. What are the causes? If you have diabetes, high blood sugar may be caused by: ? Medicines that increase blood sugar or affect your control of diabetes. ? Getting less physical activity. ? Overeating. ? Being sick or injured or having an infection. ? Having surgery. ? Stress. ? Not giving yourself enough insulin (if you are taking it). You may have high blood sugar because you have diabetes that has not been diagnosed yet. If you do not have diabetes, high blood sugar may be caused by: ? Certain medicines. ? Stress. ? A bad illness. ? An infection. ? Having surgery. ? Diseases of the pancreas. What increases the risk? This condition is more likely to develop in people who have risk factors for diabetes, such as: ? Having a family member with diabetes. ? Certain conditions in which the body's defense system (immune system) attacks itself. These are called autoimmune disorders. ? Being overweight. ? Not being active. ? Having a condition called insulin resistance. ? Having a history of: ? Prediabetes. ? Diabetes when . ? Polycystic ovarian syndrome (PCOS). What are the signs or symptoms? This condition may not cause symptoms. If you do have symptoms, they may include: ? Feeling more thirsty than normal. ? Needing to pee (urinate) more often than normal. ? Hunger. ? Feeling very tired. ? Blurry eyesight (vision). You may get other symptoms as the condition gets worse, such as: ? Dry mouth. ? Pain in your belly (abdomen). ? Not being hungry (loss of appetite). ? Breath that smells fruity. ? Weakness. ? Weight loss that is not planned. ? A tingling or numb feeling in your hands or feet. ? A headache. ? Cuts or bruises that heal slowly. How is this treated? Treatment depends on the cause of your condition. Treatment may include: ? Taking medicine to control your blood sugar levels. ? Changing your medicine or dosage if you take insulin or other diabetes medicines. ? Lifestyle changes. These may include: ? Exercising more. ? Eating healthier foods. ? Losing weight. ? Treating an illness or infection. ? Checking your blood sugar more often. ? Stopping or reducing steroid medicines. If your condition gets very bad, you will need to be treated in the hospital. Follow these instructions at home: General instructions ? Take [id number] and prescription medicines only as told by your doctor. ? Do not smoke or use any products that contain nicotine or tobacco. If you need help quitting, ask your doctor. ? If you drink alcohol: ? Limit how much you have to: ? 0?1 drink a day for women who are not . ? 0?2 drinks a day for men. ? Know how much alcohol is in a drink. In the [place] one drink equals one 12 oz bottle of beer (355 mL), one 5 oz glass of wine (148 mL), or one 1? oz glass of hard liquor (44 mL). ? Manage stress. If you need help with this, ask your doctor. ? Do exercises as told by your doctor. ? Keep all follow-up visits. Eating and drinking ? Stay at a healthy weight. ? Make sure you drink enough fluid when you: ? Exercise. ? Get sick. ? Are in hot temperatures. ? Drink enough fluid to keep your pee (urine) pale yellow. If you have diabetes: ? Know the symptoms of high blood sugar. ? Follow your diabetes management plan as told by your doctor. Make sure you: ? Take insulin and medicines as told. ? Follow your exercise plan. ? Follow your meal plan. Eat on time. Do not skip meals. ? Check your blood sugar as often as told. Make sure you check before and after exercise. If you exercise longer or in a different way, check your blood sugar more often. ? Follow your sick day plan whenever you cannot eat or drink normally. Make this plan ahead of time with your doctor. ? Share your diabetes management plan with people in your workplace, school, and household. ? Check your pee for ketones when you are ill and as told by your doctor. ? Carry a card or wear jewelry that says that you have diabetes. Where to find more information [place] [employer]: www.diabetes.org Contact a doctor if: ? Your blood sugar level is at or above 240 mg/dL (13.3 mmol/L) for 2 days in a row. ? You have problems keeping your blood sugar in your target range. ? You have high blood pressure often. ? You have signs of illness, such as: ? Feeling like you may vomit (feeling nauseous). ? Vomiting. ? A fever. Get help right away if: ? Your blood sugar monitor reads high even when you are taking insulin. ? You have trouble breathing. ? You have a change in how you think, feel, or act (ment (more content not included)... [facility] 02-26-2024 Miscellaneous Notes Was at er Monday night not feeling right blood sugar was 280 s they gave a long lasting n short lasting insulin came down to 218 Er recommends insulin instead of pills But bloodwork is sent to vianey roque for Monday morning Please schedule an ED follow-up and we will discuss diabetes tx options. Appt 03/04 scheduled. documented in this encounter [facility] 02-26-2024 Telephone encounter Note Was at er Monday night not feeling right blood sugar was 280 s they gave a long lasting n short lasting insulin came down to 218 Er recommends insulin instead of pills But bloodwork is sent to u dr roque for Monday morning [facility] 02-26-2024 Telephone encounter Note Please schedule an ED follow-up and we will discuss diabetes tx options. [facility] 02-26-2024 Telephone encounter Note Appt 03/04 scheduled. [facility] 02-25-2024 Note Education Materials Endocrinology Hyperglycemia Drink plenty of water, continue to monitor your glucose and follow-up with your primary care physician for further treatment of your hyperglycemia. Hyperglycemia is when the sugar (glucose) level in your blood is too high. High blood sugar can happen to people who have or do not have diabetes. High blood sugar can happen quickly. It can be an emergency. What are the causes? If you have diabetes, high blood sugar may be caused by: ? Medicines that increase blood sugar or affect your control of diabetes. ? Getting less physical activity. ? Overeating. ? Being sick or injured or having an infection. ? Having surgery. ? Stress. ? Not giving yourself enough insulin (if you are taking it). You may have high blood sugar because you have diabetes that has not been diagnosed yet. If you do not have diabetes, high blood sugar may be caused by: ? Certain medicines. ? Stress. ? A bad illness. ? An infection. ? Having surgery. ? Diseases of the pancreas. What increases the risk? This condition is more likely to develop in people who have risk factors for diabetes, such as: ? Having a family member with diabetes. ? Certain conditions in which the body's defense system (immune system) attacks itself. These are called autoimmune disorders. ? Being overweight. ? Not being active. ? Having a condition called insulin resistance. ? Having a history of: ? Prediabetes. ? Diabetes when . ? Polycystic ovarian syndrome (PCOS). What are the signs or symptoms? This condition may not cause symptoms. If you do have symptoms, they may include: ? Feeling more thirsty than normal. ? Needing to pee (urinate) more often than normal. ? Hunger. ? Feeling very tired. ? Blurry eyesight (vision). You may get other symptoms as the condition gets worse, such as: ? Dry mouth. ? Pain in your belly (abdomen). ? Not being hungry (loss of appetite). ? Breath that smells fruity. ? Weakness. ? Weight loss that is not planned. ? A tingling or numb feeling in your hands or feet. ? A headache. ? Cuts or bruises that heal slowly. How is this treated? Treatment depends on the cause of your condition. Treatment may include: ? Taking medicine to control your blood sugar levels. ? Changing your medicine or dosage if you take insulin or other diabetes medicines. ? Lifestyle changes. These may include: ? Exercising more. ? Eating healthier foods. ? Losing weight. ? Treating an illness or infection. ? Checking your blood sugar more often. ? Stopping or reducing steroid medicines. If your condition gets very bad, you will need to be treated in the hospital. Follow these instructions at home: General instructions ? Take jmnl-xrh-uwwbbwn and prescription medicines only as told by your doctor. ? Do not smoke or use any products that contain nicotine or tobacco. If you need help quitting, ask your doctor. ? If you drink alcohol: ? Limit how much you have to: ? 0?1 drink a day for women who are not . ? 0?2 drinks a day for men. ? Know how much alcohol is in a drink. In the [place] one drink equals one 12 oz bottle of beer (355 mL), one 5 oz glass of wine (148 mL), or one 1? oz glass of hard liquor (44 mL). ? Manage stress. If you need help with this, ask your doctor. ? Do exercises as told by your doctor. ? Keep all follow-up visits. Eating and drinking ? Stay at a healthy weight. ? Make sure you drink enough fluid when you: ? Exercise. ? Get sick. ? Are in hot temperatures. ? Drink enough fluid to keep your pee (urine) pale yellow. If you have diabetes: ? Know the symptoms of high blood sugar. ? Follow your diabetes management plan as told by your doctor. Make sure you: ? Take insulin and medicines as told. ? Follow your exercise plan. ? Follow your meal plan. Eat on time. Do not skip meals. ? Check your blood sugar as often as told. Make sure you check before and after exercise. If you exercise longer or in a different way, check your blood sugar more often. ? Follow your sick day plan whenever you cannot eat or drink normally. Make this plan ahead of time with your doctor. ? Share your diabetes management plan with people in your workplace, school, and household. ? Check your pee for ketones when you are ill and as told by your doctor. ? Carry a card or wear jewelry that says that you have diabetes. Where to find more information [place] [employer]: www.diabetes.org Contact a doctor if: ? Your blood sugar level is at or above 240 mg/dL (13.3 mmol/L) for 2 days in a row. ? You have problems keeping your blood sugar in your target range. ? You have high blood pressure often. ? You have signs of illness, such as: ? Feeling like you may vomit (feeling nauseous). ? Vomiting. ? A fever. Get help right away if: ? Your blood s (more content not included)... [facility] 02-01-2024 Telephone encounter Note Spoke with patient, confirmed appointment and prep [facility] 02-01-2024 Miscellaneous Notes Spoke with patient, confirmed appointment and prep documented in this encounter [facility] 01-25-2024 Note Education Materials Orthopedics Wrist Pain, Adult There are many things that can cause wrist pain. Some common causes include: ? An injury to the wrist area, such as a sprain, strain, or broken bone (fracture). ? Overuse of the joint. ? A condition that causes increased pressure on a nerve in the wrist (carpal tunnel syndrome). ? Wear and tear of the joints that occurs with aging (osteoarthritis). ? Other types of joint inflammation and stiffness (arthritis). Sometimes, the cause of wrist pain is not known. Often, the pain goes away when you follow instructions from your health care provider for relieving pain at home. This may include resting the wrist, icing the wrist, or using a splint or an elastic wrap for a short time. If your wrist pain continues, it is important to tell your provider. Follow these instructions at home: If you have a removable splint or elastic wrap: ? Wear the splint or wrap as told by your provider. Remove it only as told by your provider. Ask your provider if you may remove it for bathing. ? Check the skin around the splint or wrap every day. Tell your provider about any concerns. ? Loosen the splint or wrap if your fingers tingle, become numb, or turn cold and blue. ? Keep the splint or wrap clean. ? If the splint or wrap is not waterproof: ? Do not let it get wet. ? Cover it with a watertight covering when you take a bath or shower. Managing pain, stiffness, and swelling ? If told, put ice on the painful area. ? If you have a removable splint or wrap, remove it as told by your provider. ? Put ice in a plastic bag. ? Place a towel between your skin and the bag or between your splint or wrap and the bag. ? Leave the ice on for 20 minutes, 2?3 times a day. ? If your skin turns bright red, remove the ice right away to prevent skin damage. The risk of damage is higher if you cannot feel pain, heat, or cold. ? Move your fingers often to reduce stiffness and swelling. ? Raise (elevate) the injured area above the level of your heart while you are sitting or lying down. Activity ? Rest your affected wrist as told by your provider. ? Return to your normal activities as told by your provider. Ask your provider what activities are safe for you. ? Ask your provider when it is safe to drive if you have a splint or wrap on your wrist. ? Do exercises as told by your provider. General instructions ? Pay attention to any changes in your symptoms. ? Take uiwg-sxq-czfypcp and prescription medicines only as told by your provider. Contact a health care provider if: ? You have a sudden, sharp pain in the wrist, hand, or arm that is different or new. ? Any swelling or bruising on your wrist or hand gets worse. ? Your skin becomes red, has a rash, or has open sores. ? Your pain does not get better or it gets worse. ? You have a fever or chills. Get help right away if: ? You lose feeling in your fingers or hand. ? Your fingers turn white, very red, or cold and blue. ? You cannot move your fingers. This information is not intended to replace advice given to you by your health care provider. Make sure you discuss any questions you have with your health care provider. Document Revised: 11/18/2022 Document Reviewed: 11/18/2022 EventWith Patient Education ? [address] [facility] 12-31-2023 Note Education Materials Neurology Chronic Migraine Headache A migraine headache is throbbing pain that is usually on one side of the head. It can also cause other symptoms. A migraine is called a chronic migraine if it happens at least 15 days in a month for more than 3 months. Talk with your doctor about what things may bring on (trigger) your migraines. What are the causes? The exact cause of a migraine is not known. This condition may be brought on or caused by: ? Smoking. ? Some medicines, such as control or some blood pressure medicines. ? Certain substances in some foods or drinks. ? Foods and drinks, such as: ? Cheese. ? Chocolate. ? Alcohol. ? Caffeine. Other things that may bring on a migraine include: ? Periods. ? Stress. ? Getting too much or too little sleep. ? Feeling tired (fatigue). ? Bright lights or loud noises. ? Certain smells. ? Weather changes and being at high altitude. What increases the risk? The following factors may make you more likely to have chronic migraines: ? Having migraines or family members who have them. ? Having a mental health condition, such as being sad (depressed) or feeling worried or nervous (anxious). ? Taking a lot of pain medicine. ? Having sleep problems. ? Having heart disease, diabetes, or being very overweight (obese). What are the signs or symptoms? Symptoms vary for each person. The pain may: ? Feel like it is pulsing or throbbing. ? Happen only on one side of the head. In some cases, the pain may be on both sides of the head or around the head or neck. ? Be so bad that it keeps you from doing daily activities. ? Get worse with activity. ? Make you feel like you may vomit (feel nauseous) or vomit. ? Get worse around bright lights, loud noises, or smells. ? Cause you to feel dizzy. A sign that you may have chronic migraines is when you start to have more and more migraines. How is this treated? This condition is treated with medicines that: ? Lessen pain and the feeling like you may vomit. ? Prevent migraines. Treatment may also include: ? Acupuncture. ? Changes to your diet or sleep. ? Relaxation training. ? Learning ways to control your body and breathing (biofeedback). ? Talk therapy to help you know and deal with negative thoughts (cognitive behavioral therapy). ? Using a device that gives electrical stimulation to your nerves, which can help take away pain. ? A shot of medicine into the muscles of the face or head. ? Surgery, if the other treatments do not work. Follow these instructions at home: Medicines ? Take elfp-ror-fqwmdae and prescription medicines only as told by your doctor. ? Ask your doctor if the medicine prescribed to you requires you to avoid driving or using machinery. Lifestyle ? Do not drink alcohol. ? Do not smoke or use any products that contain nicotine or tobacco. If you need help quitting, ask your doctor. ? Get 7-9 hours of sleep every night, or the amount of sleep recommended by your doctor. ? Lower the stress in your life. Ask your doctor about ways to do this. ? Stay at a healthy weight. Talk with your doctor if you need help losing weight. ? Get regular exercise. General instructions ? Keep a journal to find out if certain things bring on migraines. This can help you avoid those things. For example, write down: ? What you eat and drink. ? How much sleep you get. ? Any change to your diet or medicines. ? Lie down in a dark, quiet room when you have a migraine. ? Try placing a cool towel over your head when you have a migraine. ? Keep lights dim if bright lights bother you or make your migraines worse. Where to find more information ? Coalition for Headache and Migraine Patients (CHAMP): headachemigraine.org ? [place] [employer]: americanmigrainefoundation.org ? National Headache Foundation: headaches.org Contact a doctor if: ? Medicine does not help your migraine. ? Your pain keeps coming back even with medicine. Get help right away if: ? Your migraine becomes really bad and medicine does not help. ? You have a fever or stiff neck. ? You have trouble seeing. ? Your muscles are weak or you lose control of them. ? You lose your balance or have trouble walking. ? You feel like you may faint or you faint. ? You start having sudden, very bad headaches. ? You have a seizure. This information is not intended to replace advice given to you by your health care provider. Make sure you discuss any questions you have with your health care provider. Document Revised: 10/10/2022 Document Reviewed: 10/10/2022 EventWith Patient Education ? [address] [facility] 12-20-2023 Note Patient here for 9 m o follow up AAA, iliac vein compression syndrome, SVT, and hypertension. Metoprolol was increased to 50mg bid at last telemedicine visit with Dr. Nguyễn in Feb 2023. She is due for routine echo in . She wore event monitor in April 2023. Still having chest pain she says. Review of Systems Cardiovascular: Positive for chest pain, dyspnea on exertion, leg swelling and palpitations. Neurological: Positive for light-headedness and loss of balance. All other systems reviewed and are negative. [facility] 12-20-2023 Note Cardiovascular Medic [facility] SUBJECTIVE Chief Complaint Patient presents with Hypertension Palpitations Chest Pain Naila Beltran is a 53 y.o. female here for follow-up. HPI PMHx: ascending aortic aneurysm, fem-fem vein bypass, iliac vein compression syndrome, HTN, factor V leiden mutation. 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 Garcia with GI - EGD at [facility] showed stomach was inflamed - colonoscopy showed polyps -Left leg with chronic DVT - See's Dr. Nassar for vascular at [facility] -Hx COVID 12/20/2023 She hasn't been feeling well. She feels SOB, chest pains. She is also dealing with season allergies. Chest pains left sided, squeezing/stabbing pain, occurs at rest or with heavier exertion. She has accompanied dyspnea. Radiates to her left upper chest. This is the same type of pain she has had in the past and her cardiac testing has been negative. She has hx of left rotator cuff repair along with removal of scar tissue. She has MIRELES with minimal exertion. She has tried walking but her dyspnea limits her. She also gets accompanied lightheadedness and palpitations. BP at home has been well controlled. She has issues with gastroporesis. Patient Active Problem List Diagnosis Allergic rhinitis Aneurysm of thoracic aorta (CMS/HCC) Back pain Anticoagulated Anxiety Arthralgia of upper arm Blood coagulation disorder (CMS/HCC) Morbid obesity (CMS/HCC) Coronary artery disease of [place] artery of [place] heart with stable angina pectoris (CMS/HCC) Classical migraine with intractable migraine Current use of anticoagulant therapy Depressive disorder Emotional instability (CMS/HCC) Gallstone FERNY (generalized anxiety disorder) Fatty liver Fatigue Factor V Leiden (CMS/HCC) Generalized convulsive epilepsy (CMS/HCC) GERD (gastroesophageal reflux disease) Heartburn Hypercoagulable state (CMS/HCC) History of COVID-19 History of cardiovascular disorder Hereditary coagulation factor deficiency (CMS/HCC) Kidney stone Iron deficiency anemia Hypoalphalipoproteinemia Elevated LDL cholesterol level May-Thurner syndrome Migraine 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rder (CMS/HCC) Mixed hyperlipidemia HLD (hyperlipidemia) Headache Narrowing of intervertebral disc space Multiple thyroid nodules Neuropathy Nevus anemicus Cerebrovascular disease Disorder of intervertebral disc of cervical spine Pain of left lower extremity Partial thickness rotator cuff tear Personal history of DVT (deep vein thrombosis) Postoperative infection Presbyopia Simple febrile seizure (CMS/HCC) Seizures (CMS/HCC) Skin sensation disturbance Dyspnea on exertion Thyroid adenoma Type 2 diabetes mellitus without complication, without long-term current use of insulin (CMS/HCC) Cobalamin deficiency Vitamin D insufficiency Atypical chest pain Chronic pain Diarrhea Gastroparesis due to DM (CMS/HCC) Nausea & vomiting Past Medical History: Diagnosis Date Aneurysm (CMS/HCC) Clotting disorder (CMS/HCC) Deep vein thrombosis (CMS/HCC) Factor V Leiden (CMS/HCC) Hypertension Family History Problem Relation Name Age of Onset Heart failure Mother Valvular heart disease Mother Social History Tobacco Use Smoking status: Never Smokeless tobacco: Never Substance Use Topics Alcohol use: Not Currently Allergies Allergen Reactions Heparin Thickens blood, raises blood pressure Cephalexin Hives and Other Penicillins Hives and Other ROS Cardiovascular: Positive for chest pain, dyspnea on exertion, leg swelling and palpitations. Neurological: Positive for light-headedness and loss of balance. All other systems reviewed and are negative. OBJECTIVE Visit Vitals BP 126/84 (BP Location: Right arm, Patient Position: Sitting) Pulse 54 Ht 1.702 m (5' 7 ) Wt 113 kg (250 lb) SpO2 96% BMI 39.16 kg/m??? Smoking Status Never BSA 2.31 m??? Medications: Current Outpatient Medications: albuterol 90 mcg/actuation inhaler, Inhale 1 puff as needed by inhalation route for 25 days., Disp: , Rfl: apixaban (Eliquis) 2.5 mg tablet, Take 1 tablet by mouth in the morning and at bedtime., Disp: , Rfl: aspirin 81 mg EC tablet, Take 81 mg by mouth in the morning., Disp: , Rfl: atorvastatin (Lipitor) 40 mg tablet, Take 1 tablet by mouth at bedtime., Disp: , Rfl: busPIRone (Buspar) 10 mg tablet, Take 10 mg by mouth in the morning, at noon, and at bedtime., Disp: , Rfl: cetirizine (ZyrTEC) 10 mg tablet, Take 10 mg by mouth in the morning., Disp: , Rfl: cholecalciferol, vitamin D3, 50 mcg (2,000 unit) capsule, Take 2,000 Units by mouth in the morning., Disp: , Rfl: cyclobenzaprine (Flexeril) 10 mg tablet, take 1 tablet by mouth twice a day if needed for muscle spasm for 15 DAYS, Disp: , Rfl: FeroSuL 325 mg (65 mg iron) tablet, Take 1 tablet by mouth in the morning., Disp (more content not included)... [facility] 11-06-2023 Telephone encounter Note Called Patient and went over procedure and prep for nuclear medicine scan tomorrow. [facility] 11-06-2023 Miscellaneous Notes Called Patient and went over procedure and prep for nuclear medicine scan tomorrow. documented in this encounter [facility] 10-18-2023 History of Present illness Narrative VIRTUAL VISIT FOLLOW UP I had a virtual visit with Ms. Beltran today for follow up of POP (Per-Oral Pyloromyotomy). UPDATED HISTORY: This is a 53 year old female s/p POP on 08/22/2023. Started out well but up and down right now. 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 Stent vessels - left leg Phlegmagia 2008 and 2011), incomplete bladder evacuation. HgbA1c: 7.4 06/28/2023 Diet: Cottage cheese, avoiding greasy food, plane turkey burger TF: NA Pain: generalized, better when sleeping on left side. BM: Hard to diarrhea, taking Amitiza Weight: stable PPI/Carafate: Still taking PPI/Carafate REVIEW OF SYSTEMS: GENERAL: No weight loss, malaise or fevers GI: No nausea, vomiting, or diarrhea and See HPI PHYSICAL FINDINGS OF NOTE: None IMPRESSION 1. 53 year old female s/p POP. RECOMMENDATION: - Stop PPI and Carafate - GES (Solid phase, 4hr to be done End of October 2023) - Virtual visit after that. - Re-emphasized chewing food and wearing dentures, states she does not always wear them but still chews her food a lot I have communicated my name and active licensure. The patient's identity and physical location were verified at the time of this visit. Either the patient or their legal public health representative has been informed of the risks and benefits of -- and alternatives to -- treatment through a remote evaluation and consents to proceed with the evaluation remotely. During this patient visit I have spent approximately 10 minutes [id number] with the patient and over half the time was devoted to counseling and/or coordination of care. We discussed in depth the possible surgical treatment of gastroparesis and options involved. documented in this encounter [facility] 10-18-2023 Note HNO ID: [id number] Author: MARTINE BOWLING MD Service: ? Author Type: Physician Type: Progress Notes Filed: 10/18/2023 14:34 Note Text: VIRTUAL VISIT FOLLOW UP I had a virtual visit with Ms. Beltran today for follow up of POP (Per-Oral Pyloromyotomy). UPDATED HISTORY: This is a 53 year old female s/p POP on 08/22/2023. Started out well but up and down right now. 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 Stent vessels - left leg Phlegmagia 2008 and 2011), incomplete bladder evacuation. HgbA1c: 7.4 06/28/2023 Diet: Cottage cheese, avoiding greasy food, plane turkey burger TF: NA Pain: generalized, better when sleeping on left side. BM: Hard to diarrhea, taking Amitiza Weight: stable PPI/Carafate: Still taking PPI/Carafate REVIEW OF SYSTEMS: GENERAL: No weight loss, malaise or fevers GI: No nausea, vomiting, or diarrhea and See HPI PHYSICAL FINDINGS OF NOTE: None IMPRESSION 1. 53 year old female s/p POP. RECOMMENDATION: - Stop PPI and Carafate - GES (Solid phase, 4hr to be done End of October 2023) - Virtual visit after that. - Re-emphasized chewing food and wearing dentures, states she does not always wear them but still chews her food a lot I have communicated my name and active licensure. The patient's identity and physical location were verified at the time of this visit. Either the patient or their legal public health representative has been informed of the risks and benefits of -- and alternatives to -- treatment through a remote evaluation and consents to proceed with the evaluation remotely. During this patient visit I have spent approximately 10 minutes kljj-oa-[id number] with the patient and over half the time was devoted to counseling and/or coordination of care. We discussed in depth the possible surgical treatment of gastroparesis and options involved. [facility] 10-11-2023 Telephone encounter Note 1 year f/u in 06/21. Patient requests script be filled at [facility] since [facility] is now closing. Adams Vang PharmD, BCOP [facility] Work Phone: 10-11-2023 Miscellaneous Notes 1 year f/u in 06/21. Patient requests script be filled at [facility] since [facility] is now closing. Adams Vang PharmD, BCOP documented in this encounter [facility] 08-22-2023 Note HNO ID: [id number] Author: WALESKA OCONNOR AA Service: ? Author Type: Meter/Relay Craftsman Type: Anesthesia Procedure Notes Filed: 08/22/2023 10:13 Note Text: ANESTHESIOLOGY PROCEDURE NOTE Airway General Information Procedure Start Time/Medication Administration: 08/22/2023 9:59 AM Procedure End Time: 08/22/2023 10:00 AM Patient location during procedure: OR Timeout Performed Pre-procedure: timeout performed Consent Obtained: Yes Patient identity confirmed: arm band, care engineering team supervisor and patient Staffing Anesthesiologist: Aziza Skinner MD CAA: Waleska Oconnor AA Performed by: anesthesiologist Indications and Patient Condition Indications for airway management: anesthesia and airway protection Preoxygenated: yes anesthesia circuit Patient position: sniffing Final Airway Details Final airway type: endotracheal airway Final Endotracheal Airway: ETT Cuffed: yes Successful intubation technique: video laryngoscopy Devices used: Calles Blade size: #3 ETT size (mm): 6.5 Measured from: lips Measurement (cm): 22 Placement verified by: chest auscultation and capnometry Cormack-Lehane Classification: grade I - full view of glottis Number of attempts at approach: 1 Failed airway: no Unrecognized esophageal intubation: no Airway not difficult SIGNATURE: DEE Pulido PATIENT NAME: Naila Beltran DATE: August 22, 2023 TIME: 10:12 AM CSN: [id number] [facility] 08-22-2023 History and physical note UPDATED HISTORY AND PHYSICAL EXAMINATION SERVICE DATE: 08/22/2023 SERVICE TIME: 8:03 AM SERVICE: General Surgery PHYSICAL EXAM MUST BE COMPLETED ON ADMISSION The History and Physical (completed in the past 30 days) has been reviewed and the patient has been examined. The contents accurately reflect the patient's condition with the following additions or revisions since the H&P was completed. Patient denies any changes to health since last examination. Planned procedure for today is EGD Therapeutic with Endoscopic Pyloromyotomy. Medication reconciliation list reviewed in [facility]. Past medical history, past surgical history, social history and family history reviewed and updated in [facility]. ALLERGIES Allergen Reactions Aspirin Unknown Heparin Analogues Unknown Keflex [Cephalexin] Hives Penicillin G Hives LMP 04/01/2011 Pulse (!) 51 Temp 36.4 C (97.5 F) (Temporal) Resp 19 LMP 04/01/2011 SpO2 98% Examination indicates no changes. On examination today: Lungs: Clear to auscultation bilaterally. Heart: RRR, Normal S1/S2, No murmurs, rubs, gallops or thrills appreciated. Abdomen: BS+ in all quadrants, abdomen is soft, non tender, and without guarding. Assessment: Colon Polyps Gastroparesis due to DM Plan: EGD Therapeutic with Endoscopic Pyloromyotomy This H&P can be found in the Electronic Medical Record dated 08/09/2023,Casey Mcadams PA-C SIGNATURE: Howie Delong PA-C PATIENT NAME: Naila Beltran DATE: August 22, 2023 TIME: 8:03 AM [facility] Work Phone: 08-22-2023 History and physical note UPDATED HISTORY AND PHYSICAL EXAMINATION SERVICE DATE: 08/22/2023 SERVICE TIME: 8:03 AM SERVICE: General Surgery PHYSICAL EXAM MUST BE COMPLETED ON ADMISSION The History and Physical (completed in the past 30 days) has been reviewed and the patient has been examined. The contents accurately reflect the patient's condition with the following additions or revisions since the H&P was completed. Patient denies any changes to health since last examination. Planned procedure for today is EGD Therapeutic with Endoscopic Pyloromyotomy. Medication reconciliation list reviewed in [facility]. Past medical history, past surgical history, social history and family history reviewed and updated in [facility]. ALLERGIES Allergen Reactions Aspirin Unknown Heparin Analogues Unknown Keflex [Cephalexin] Hives Penicillin G Hives LMP 04/01/2011 Pulse (!) 51 Temp 36.4 C (97.5 F) (Temporal) Resp 19 LMP 04/01/2011 SpO2 98% Examination indicates no changes. On examination today: Lungs: Clear to auscultation bilaterally. Heart: RRR, Normal S1/S2, No murmurs, rubs, gallops or thrills appreciated. Abdomen: BS+ in all quadrants, abdomen is soft, non tender, and without guarding. Assessment: Colon Polyps Gastroparesis due to DM Plan: EGD Therapeutic with Endoscopic Pyloromyotomy This H&P can be found in the Electronic Medical Record dated 08/09/2023,Casye Mcadams PA-C SIGNATURE: Howie Delong PA-C PATIENT NAME: Naila Beltran DATE: August 22, 2023 TIME: 8:03 AM documented in this encounter [facility] 08-22-2023 Note HNO ID: [id number] Author: VERONICA MAO RN Service: ? Author Type: Registered Nurse Type: Nursing Progress Note Filed: 08/22/2023 08:34 Note Text: Discussed safety protocols and procedure with patient who verbalized an understanding [facility] 08-22-2023 Nurse Note Discussed safety protocols and procedure with patient who verbalized an understanding [facility] 08-22-2023 Nurse Note Discussed safety protocols and procedure with patient who verbalized an understanding documented in this encounter [facility] 08-18-2023 Telephone encounter Note Completed pre-procedure call for patients scheduled GPOEM/POP on Monday No answer - left message on VM reminding of diet- full liquids Monday and Monday then Clears on Monday. Nothing to eat or drink after midnight office number left for return call with any questions Katja Rios RN August 18, 2023 4:43 PM [facility] 08-18-2023 Miscellaneous Notes Completed pre-procedure call for patients scheduled GPOEM/POP on Monday No answer - left message on VM reminding of diet- full liquids Monday and Monday then Clears on Monday. Nothing to eat or drink after midnight office number left for return call with any questions Katja Rios RN August 18, 2023 4:43 PM documented in this encounter [facility] 08-17-2023 Nurse Note [facility] ENDOSCOPY PRE PROCEDURE CALL Johnna. I'm calling from [facility] endoscopy to provide you with the information for your surgery/procedure tomorrow. 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 Yes When anesthesia or sedation is being given: Patient instructed you must have an adult gas truck driver because you will not be able to work or drive for the rest of the day after your test.Yes Patient instructed to have a responsible, adult gas truck driver to take them home after the procedure Yes. Due to having sedation, there is no working or driving the day of the procedure. Your gas truck driver is allowed to wait here with you or they may drop you off and come back to pick you up. Patient instructed: Do not eat anything the morning of the procedure, including gum, hard candy and mints.Yes Patient instructed not bring any valuables, jewelry, or sethi and wear comfortable clothing. Do not wear makeup, lotion, or finger georgian. Yes Patient instructed: Please bring a list of medications including over the counter, vitamin, and herbals. If you are on inhalers, please do them in the morning before your test and bring them with you.Yes Blood pressure, seizure, or thyroid medications may be taken with a couple sips of water ONLY 4 hours prior to arrival time. Is the patient on blood thinners?yes Patient contacted their PCP for instructions If so,verify if pt contacted the prescribing doctor to see how long they may hold blood thinners prior to procedure. Are you diabetic?Yes If so, advise pt to contact prescribing doctor to verify if any modifications are needed for insulin and/or pills Reminder:diabetic medication instructions should be given by the patient's ordering physician. If blood sugar drops, they can have CLEAR liquids to bring it up until 3 hours prior to arrival time. Hospitalizations: No Procedure and/or bowel prep instructions given to patient and questions answered: Yes, and they verbalized their understanding of instructions given Any barriers to Patient learning (confusion? Pot Room Tapper needed?): Patient/Patient Veterinary Radiologist responded appropriately on phone. Please complete your Pre-Check In paperwork in My Chart if applicable. If patient needs to reschedule please call: [phone] [facility] phone number: [phone] Type of instruction given: Verbal by telephone contact. [facility] 08-17-2023 Nurse Note [facility] ENDOSCOPY PRE PROCEDURE CALL Johnna. I'm calling from [facility] endoscopy to provide you with the information for your surgery/procedure tomorrow. 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 Yes When anesthesia or sedation is being given: Patient instructed you must have an adult gas truck driver because you will not be able to work or drive for the rest of the day after your test.Yes Patient instructed to have a responsible, adult gas truck driver to take them home after the procedure Yes. Due to having sedation, there is no working or driving the day of the procedure. Your gas truck driver is allowed to wait here with you or they may drop you off and come back to pick you up. Patient instructed: Do not eat anything the morning of the procedure, including gum, hard candy and mints.Yes Patient instructed not bring any valuables, jewelry, or sethi and wear comfortable clothing. Do not wear makeup, lotion, or finger georgian. Yes Patient instructed: Please bring a list of medications including over the counter, vitamin, and herbals. If you are on inhalers, please do them in the morning before your test and bring them with you.Yes Blood pressure, seizure, or thyroid medications may be taken with a couple sips of water ONLY 4 hours prior to arrival time. Is the patient on blood thinners?yes Patient contacted their PCP for instructions If so,verify if pt contacted the prescribing doctor to see how long they may hold blood thinners prior to procedure. Are you diabetic?Yes If so, advise pt to contact prescribing doctor to verify if any modifications are needed for insulin and/or pills Reminder:diabetic medication instructions should be given by the patient's ordering physician. If blood sugar drops, they can have CLEAR liquids to bring it up until 3 hours prior to arrival time. Hospitalizations: No Procedure and/or bowel prep instructions given to patient and questions answered: Yes, and they verbalized their understanding of instructions given Any barriers to Patient learning (confusion? Pot Room Tapper needed?): Patient/Patient Veterinary Radiologist responded appropriately on phone. Please complete your Pre-Check In paperwork in My Chart if applicable. If patient needs to reschedule please call: [phone] [facility] phone number: [phone] Type of instruction given: Verbal by telephone contact. documented in this encounter [facility] 08-16-2023 Telephone encounter Note Called Dr. Nguyễn's office today as well as yesterday to f/u on letter sent to see if pt requires any further Cardiac testing, left detailed message again on VM. Rosangela Matos RN August 16, 2023 1:52 PM [facility] 08-16-[address] Nguyễn's office today as well as yesterday to f/u on letter sent to see if pt requires any further Cardiac testing, left detailed message again on VM. Rosangela Matos RN August 16, 2023 1:52 PM documented in this encounter [facility] 08-10-2023 Telephone encounter Note Patient confirmed receipt of MyChart message with instructions Casey Mcadams PA-C 08/10/2023 4:18 PM [facility] 08-10-2023 Miscellaneous Notes Patient confirmed receipt of MyChart message with instructions Casey Mcadams PA-C 08/10/2023 4:18 PM MyChart message sent to patient with instructions. Thank you! Casey Mcadams PA-C PACC Called patient to notify - no answer Left requesting return call to discuss pre-operative instructions in regards to blood thinner Katja Rios RN August 10, 2023 4:04 PM That should be fine. Thanks 2 days hold should be fine Good afternoon Dr. Spivey, This patient was seen by me for virtual PACC for upcoming EGD with endoscopic per oral pyloromyotomy scheduled with Dr. Bowling on 08/21 at [facility]. Patient is on Eliquis for Factor V Leiden, h/o recurrent DVT and states she has a chronic left leg DVT (I am unable to find US report). Is she permitted to hold Eliquis for 2-3 days prior to procedure? Thank you for your time and help, Casey Mcadams PA-C PACC documented in this encounter [facility] 08-10-2023 Telephone encounter Note [employer] message sent to patient with instructions. Thank you! Casey Mcadams PA-C PACC [facility] 08-10-2023 Telephone encounter Note Called patient to notify - no answer Left requesting return call to discuss pre-operative instructions in regards to blood thinner Katja Rios RN August 10, 2023 4:04 PM [facility] 08-10-2023 Note HNO ID: [id number] Author: VERONICA QUILES DO Service: ? Author Type: Physician Type: Progress Notes Filed: 08/10/2023 15:39 Note Text: [facility] 08-10-2023 History of Present illness Narrative Images from the original note were not included. documented in this encounter [facility] 08-10-2023 Telephone encounter Note That should be fine. Thanks [facility] Work Phone: 08-10-2023 Telephone encounter Note 2 days hold should be fine [facility] 08-10-2023 Telephone encounter Note Good afternoon Dr. Spivey, This patient was seen by me for virtual PACC for upcoming EGD with endoscopic per oral pyloromyotomy scheduled with Dr. Bowling on 08/21 at [facility]. Patient is on Eliquis for Factor V Leiden, h/o recurrent DVT and states she has a chronic left leg DVT (I am unable to find US report). Is she permitted to hold Eliquis for 2-3 days prior to procedure? Thank you for your time and help, Casey Mcadams PA-C PACC [facility] 08-09-2023 Instructions Casey Mcadasm PA-C - 08/09/2023 2:02 PM EDT PATIENT PREOPERATIVE INSTRUCTIONS Martine Bowling MD has scheduled you for your procedure at this surgery center: [facility]: [phone] -- [address], [place] [address]. Please read below carefully for your personalized instructions. Dietary Restrictions: Please following dietary instructions given by your surgeon - Nothing to eat or drink after midnight except for a sip of water with approved medications. Medications: Unless instructed differently below, stay on all of your medications until your surgery. If you start any new medications after today's visit, please contact your surgeon. Pre-Surgery Med Instructions Medication Instructions metoprolol tartrate, short acting, (LOPRESSOR) 50 mg tablet Take the day of surgery with a small sip of water tiZANidine (ZANAFLEX) 2 mg tablet Ok to take the evening before surgery (if needed) Please hold this the morning of your procedure busPIRone (BUSPAR) 10 mg tablet Take the day of surgery with a small sip of water lansoprazole (PREVACID 24HR) 15 mg capsule Ok to take the morning of surgery (if needed) with a small sip of water lubiprostone (AMITIZA) 8 mcg capsule Please hold this the morning of your procedure ELIQUIS 2.5 mg tab(s) I am checking with your prescribing physician for instructions on holding this. glyBURIDE (DIABETA) 5 mg tablet Please hold this the morning of your procedure cetirizine (ZYRTEC) 10 mg tablet Ok to take the morning of surgery (if needed) with a small sip of water Fluticasone Furoate 27.5 mcg/actuation nasal spray Ok to use the morning of surgery (if needed) sitaGLIPtin-metFORMIN (JANUMET) 50-500 mg per tablet Please hold this the morning of your procedure aspirin 81 mg chewable tablet Take the day of surgery with a small sip of water albuterol HFA (PROVENTIL HFA, VENTOLIN HFA) 90 mcg/actuation inhaler Ok to use the morning of surgery (if needed) levETIRAcetam XR (KEPPRA XR) 500 mg 24 hr tablet Ok to take the evening before surgery as usual atorvastatin (LIPITOR) 40 mg tablet Ok to take the evening before surgery as usual If you start any new medications after today's visit, please contact the surgeon's office. Blood Thinning Medications: - Stop NSAIDS (Ibuprofen, Advil, Aleve, Motrin, Celebrex, Mobic, etc.) 7 days before surgery, as directed by your surgeon. - Do NOT stop aspirin or other anticoagulants without consulting with your lieutenant/deputy or prescribing physician. - Stop Vitamin E, ALL multi-vitamins, herbals and dietary supplements 14 days before surgery. - You may take Tylenol (Acetaminophen) or any of your pain medications that do not contain aspirin or NSAIDS as needed. Important Reminders: - If you are prescribed inhalers for breathing, continue using them. - Candy, mints, and tobacco products are NOT permitted the morning of surgery. - Hearing aids, dentures and glasses may be worn the morning of surgery. - NO jewelry, body piercings, makeup, hairpins or contacts are to be worn the day of surgery. If you develop symptoms such as a fever, cold, or flu, or have other changes to your health within TWO DAYS of scheduled surgery or the morning of surgery, please contact the surgery center above. Personal Belongings: -Please have photo ID and insurance cards. -If you do not have a copy of advance directives on file with us, please bring a copy with you on the day of surgery. - Leave ALL valuables and money at home or with family members. For Outpatient Procedures: - YOU MUST HAVE A RESPONSIBLE TEST WORKER TAKE YOU HOME. A GLOBE TESTER OR TEACHING PASTOR CANNOT BE MADE A RESPONSIBLE TEST WORKER. - We recommend that a responsible person stays with you overnight to take care of you. - You cannot stay in a hotel alone after outpatient surgery. You will not be permitted to have your surgery, if you do not have someone to take care of you. Arrival Time for Surgery: - The Surgery Center or hospital where you are having surgery will call the afternoon before surgery (or Monday for Monday surgery) with a scheduled arrival time. - If you have not heard by 4 pm, please contact the surgery center above. Please be aware that emergency situations arise, which may delay or change your surgical time. If this happens, we will notify you as soon as possible and regret any inconvenience. If you already have an Advance Directive, please fax a copy to [phone] or email to for it to be added to your chart. If you do not have an Advance Directive, you can find the appropriate form and more information at [email or web address]. We recommend that you complete the Advance Directive form found on the website and bring it with you the day of your surgery. It can be witnessed and scanned into your chart that day. Casey Mcadams PA-C documented in this encounter [facility] 08-09-2023 History and physical note PREANESTHESIA CONSULT CLINIC TELEHEALTH VISIT Patient has been identified by name and date of : Yes This is a virtual visit using [employer] Video Visit. It require patient-provider interaction for the medical decision making as documented below. Reason for contact: PACC visit Accompanied by: Self Scheduled Surgery: EGD with endoscopic per oral pyloromyotomy I have communicated my name and active licensure. The patient's identity and physical location were verified at the time of this visit. Either the patient or their legal public health representative has been informed of the risks and benefits of -- and alternatives to -- treatment through a remote evaluation and consents to proceed with the evaluation remotely. ASSESSMENT: 1. Preop examination Scheduled for above procedure 2. Neck pain Patient reports she has a pinched nerve in her neck. She denies numbness/tingling with neck ROM 3. Ascending aorta dilation (HCC) 4.4 cm ascending aortic aneurysm. Stable per lieutenant/deputy Dr. Nguyễn's note with plan for yearly follow-up echo 4. Gastroesophageal reflux disease, unspecified whether esophagitis present Takes Prevacid prn. Patient states that coca-cola and peppermints are helpful for symptoms. See HPI 5. Gastroparesis due to DM (HCC) (HCC) See HPI. Scheduled for above procedure. Patient will be NPO after midnight and will follow surgeon's pre-op dietary instructions 6. 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 She admits to chronic left leg DVT. Denies acute symptoms. She is maintained on Eliquis and follows with hematology 7. Hyperlipidemia, unspecified hyperlipidemia type On Lipitor 8. Obesity, Class II, BMI 35-39.9 BMI 38 9. SOB (shortness of breath) Patient admits to chronic SOB with exertion. She uses Albuterol prn up to twice a day, but typically only when she's carrying something while climbing the stairs. She does not use it daily. She denies acute symptoms. She has had cardiac workup and spirometry. Stable. 10. PVD (peripheral vascular disease) ([facility]) History of stents and x2 lower extremity bypass procedures. She will continue 81 mg aspirin for procedure. 11. History of DVT (deep vein thrombosis) Patient has had multiple DVTs. Her last acute DVT was ~2019. Patient denies acute symptoms. She mentions she has a chronic left leg DVT. She is on Eliquis. 12. Diabetes mellitus type 2 ([facility]) On Glyburide and Janumet. Patient's most recent Hgb A1C was 7.4% on 06/28/2023. Labs within PACC guidelines to proceed. 13. Anxiety 14. PTSD On Buspar tid which is helpful. Patient denies SI/HI. Patient admits to PTSD. She denies triggers we should be aware of for her procedure. 15. Seizure disorder ([facility]) Controlled on Keppra. Patient reports last seizure was about 6-8 years ago. Stable per patient. METS: Walk a block or two on level ground (2.75 METs) Climb a flight of stairs or walk up a hill (5.50 METs) Patient denies any chest pain or undue shortness of breath with the above physical activity. Goes to [place] sometimes, active and cares for 2 year old grandchild, but admits to chronic MIRELES. She might use her inhaler if climbing the stairs She admits to occasional resting dull achy chest pain after activity ANESTHESIA FINDINGS: Intubation History: No history of difficult intubation Significant Anesthesia Considerations: Difficult IV/Vein Access: has small and rolling veins, often needs small needle Airway Exam: General: Obese Mallampati Score is CLASS II ULBT: Unable to perform Neck: short neck, full ROM Mouth: Normal tongue size and Mouth opening greater than 2 finger breaths Dentition: Edentulous Airway History: No abnormal airway history STOP BANG Score: Criteria: Tired Age over 50 (53 year old) Score = 2 Subjective CHIEF COMPLAINT: Patient presents with: Pre-Op Visit HPI: This is a 52 year old female who presents with nausea, vomiting, early satiety and intermittent abdominal pain. Symptoms started 2-3 years ago. She admits to GERD that is sometimes controlled. Drinking coke and peppermints are helpful for her symptoms. She was diagnosed with gastroparesis and elects to proceed with above procedure. . ACTIVE PROBLEM LIST Hypercoagulable State (Hcc) Vascular Disease Anticoagulated Hld (Hyperlipidemia) Coronary Artery Disease of [place] Artery of [place] Heart With Stable Angina Pectoris (Hcc) Diabetes Mellitus Type 2 (Hcc) Gerd (Gastroesophageal Reflux Disease) Personal History of Dvt (Deep Vein Thrombosis) Fatty Liver Morbid Obesity (Hcc) Seizures (Hcc) Sob (Shortness of Breath) Pvd (Peripheral Vascular Disease) (Hcc) Ascending Aorta Dilation (Hcc) History of Covid-19 Obesity, Class III, BMI >= 40 Hereditary Coagulation Factor Deficiency (Hcc) Mild Episode of Recurrent Major Depressive Disorder (Hcc) Gastroparesis Due to Dm (Hcc) ([facility]) Obesity, Class II, Bmi 35-39.9 Anxiety Ptsd (Post-Traumatic Stress Disorder) PAST MEDICAL HISTORY Diagnosis Date Coronary artery disease involving [place] coronary artery of [place] heart without angina pectoris 02/06/2020 Depression DVT of leg (deep venous thrombosis) ([facility]) Gastroparesis History of blood transfusion x 3- no reactions History of COVID-19 03/04/2020 Seizures (HCC) Type 2 diabetes mellitus without complication, without long-term current use of insulin ([facility]) 02/06/2020 PAST SURGICAL HISTORY Procedure Laterality Date HYSTERECTOMY HX LAPAROSCOPIC CHOLECYSTECTOMY 03/16/2020 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 PAST SURGICAL HISTORY OF left leg x 6 to remove blood clots PAST SURGICAL HISTORY OF jugular vein to remove blood clots PAST SURGICAL HISTORY OF vein bypass x 2 PAST SURGICAL HISTORY OF bladder/urethra surgery as infant FAMILY HISTORY Problem Relation Age of Onset Diabetes Mother Hypertension Mother Stroke Mother Kidney Disease Mother Diabetes Father Lipids Father Asthma Brother Anesthesia Problems No Family History Social History Tobacco Use Smoking status: Never Smokeless tobacco: Never Tobacco comments: Boyfriend smokes Vaping Use Vaping Use: Never used Substance Use Topics Alcohol use: No Drug use: Never ALLERGIES Allergen Reactions Aspirin Unknown Heparin Analogues Unknown Keflex [Cephalexin] Hives Penicillin G Hives MEDICATIONS: Current Outpatient Medications Medication Sig metoprolol tartrate, short acting, (LOPRESSOR) 50 mg tablet Take 50 mg by mouth two times a day. tiZANidine (ZANAFLEX) 2 mg tablet Take 2 mg by mouth every 8 hours as needed (neck pain). busPIRone (BUSPAR) 10 mg tablet Take 10 mg by mouth three times a day. lansoprazole (PREVACID 24HR) 15 mg capsule Take 1 capsule by mouth once daily as needed. lubiprostone (AMITIZA) 8 mcg capsule Take 1 capsule by mouth two times a day with meals. ELIQUIS 2.5 mg tab(s) Take 1 tablet by mouth two times a day. glyBURIDE (DIABETA) 5 mg tablet Take 5 mg by mouth. Takes 1 tablet with each small meal. Usually about 3 per day cetirizine (ZYRTEC) 10 mg tablet Take 10 mg by mouth. Fluticasone Furoate 27.5 mcg/actuation nasal spray fluticasone Fluticasone Furoate Active 1 SPRAY Intranasal Daily June 13, 2017 7:29am 06-13-2017 [facility] ([address]) sitaGLIPtin-metFORMIN (JANUMET) 50-500 mg per tablet Take 1 tablet by mouth twice daily with meals. aspirin 81 mg chewable tablet q 24 HR. albuterol HFA (PROVENTIL HFA, VENTOLIN HFA) 90 mcg/actuation inhaler Ventolin HFA 90 mcg/actuation aerosol inhaler levETIRAcetam XR (KEPPRA XR) 500 mg 24 hr tablet Take 1,500 mg by mouth daily at bedtime. atorvastatin (LIPITOR) 40 mg tablet Take 40 mg by mouth once daily. iv contrast (will be provided with radiology [...] in the CT contrast administration guidelines link. enteric contrast (will be provided with radiology test) For CT ABD/PEL W IVCON Routine order Administer, As Directed One Time Only, via Oral, Rectal, both Oral and Rectal, Enteric Tube, Stoma or Indwelling Catheter, Enteric Contrast as designated per enteric contrast guidelines Comp.Stocking,Thigh,Long,X-Lrg misc Wear stocking daily pregabalin (LYRICA) 150 mg capsule Take 150 mg by mouth twice daily. (Patient not taking: Reported on 08/09/2023) Multivitamins ORAL Chew None Entered No current facility-administered medications for this visit. COVID-19 Immunization Status Overdue - Covid-19 Vaccine ( season) Overdue since 10/28/2022 12/31/2020 Imm Admin: COVID-19 original vaccine, full dose, monovalent (MODERNA) 06/15/2020 Imm Admin: COVID-19 original vaccine, full dose, monovalent (MODERNA) 05/18/2020 Imm Admin: COVID-19 original vaccine, full dose, monovalent (MODERNA) Only the first 3 history entries have been loaded, but more history exists. Had COVID-19 2019 (asymptomatic). Denies complications or hospitalization. REVIEW OF SYSTEMS: Pain Assessment: General: Denies fever or malaise Neuro: Postive for seizures since childhood - last seizure 6-8 years ago, Negative for Stroke-residual deficit Parkinson's Disease Multiple Sclerosis Respiratory: Positive for SOB - uses Albuterol prn, Negative for COPD, Current cough, URI < 2 weeks Cardiovascular: Positive for: Ascending aorta dilation, PVD s/p left groin stents and vein bypass, factor V leiden, HTN, HLD, lymphedema, Negative for Recent HI, Angina, Chest Pain, CHF, Valvular Heart Disease Has chronic DVT left - on Eliquis. Last acute DVT ~2019 fem GI: IBS, GERD, see HPI : No history of dysuria, frequency or incontinence,, stones or chronic kidney disease Endocrine: diabetes - last home BS 147. Admits to neuropathy Denies thyroid disease/symptoms Denies oral steroids in the last 30 days Hematology: Bleeding / clotting disorders (Factor V Leiden), Chronic anti-coagulation / platelet meds (Eliquis) Oncology: No history of CA metastasis, chemo within 30 days, or radiotherapy within 90 days. Has not lost 10% of body wt in 6 months. No history of oncological symptoms or problems. Psych: Anxiety - on Buspar. Denies SI/HI PTSD - denies triggers we should be aware of for surgery. Musculoskeletal: neck pain -states has pinched nerve. Occasional sciatica. Denies numbness/tingling with neck ROM Skin: Negative for lesions, rash and itching. Objective PHYSICAL EXAM: Pulse 89[apple watch[ Ht 5' 7 [patient reported[ (1.70m) Wt 245 lb (111.1kg) LMP 04/01/2011 BMI 38.36 kg/(m^2). VIDEO EXAM: (if completed, exam performed via video enabled technology) GENERAL: alert and appropriate, in no distress, well-hydrated, well nourished, and happy, smiling, interactive HEAD: normocephalic, no abnormality or lesion noted EYES: no injection NOSE: external nose normal without rhinorrhea NECK: short neck, full ROM RESPIRATORY: breathing non-labored and no grunting/flaring/retractions CHEST: equal chest rise with normal respiratory effort HEART: Patient confirmed radial pulse and counted aloud. Patient reports regular rhythm. HR 89 BPM on apple watch. No cyanosis ABDOMEN: mild TTP noted in the [facility]: no cerebral deficits noted Diagnostic tests reviewed for today's visit: Lab Value Units Date High Low HB 11.7 g/dL 06/13/2023 15.5 11.5 HCT 36.7 % 06/13/2023 46.0 36.0 WBC 10.98 k/uL 06/13/2023 11.00 3.70 PLT 236 k/uL 06/13/2023 400 150 NA 139 mmol/L 06/13/2023 144 136 K 3.5 mmol/L 06/13/2023 5.1 3.7 GLUC 96 mg/dL 06/13/2023 99 74 BUN 14 mg/dL 06/13/2023 21 7 CREAT 0.89 mg/dL 06/13/2023 0.96 0.58 PTSEC No results within date range. INR No results within date range. APTT No results within date range. ALT 23 U/L 06/13/2023 38 7 AST 22 U/L 06/13/2023 35 13 TBILI 0.3 mg/dL 06/13/2023 1.3 0.2 TSH No results within date range. Cardiac testing per cardiology office note Echocardiogram 02/15/2023: Global left ventricular systolic function is normal, visually estimated ejection fraction is 55 to 60%. Right ventricle is poorly seen, appears normal in size with reduced systolic function. Normal diastolic function. Valves are poorly seen, no significant valvular abnormalities. The ascending aorta is moderately dilated measuring 4.4 cm. Cardiopulmonary exercise stress test 11/18/2021: RER of 1.1, VE/VCO2 equals 33.2, Peak Oxygen Consumption (VO2) was 14.9 ml/O2/kg/min or 4.3 METS. Functional capacity was 81% of predicted peak VO2, which is low. Pulmonary Function is normal. Peak O2 Pulse was 15 ml/beats, which is normal. Breathing reserve was 78% or 59 liters, which is normal. This study shows no evidence of ischemia. Arrhythmias seen: none Maximal, symptom-limited treadmill test is limited by angina. cardiac event monitor 12/05/2022 - 01/04/2023: Sinus with events of sinus tachycardia, normal sinus and sinus arrhythmia, sinus bradycardia, SVT. Prior testing history: Holter monitor 04/07/2021 - 04/14/2021 (7 days): sinus rhythm with sinus bradycardia and tachycardia noted. Heart rate range 57 to 162 bpm, average, 57 bpm. Rare PVCs and PACs noted. No SVT, NSVT, AF or significant arrhythmias seen. ECG 09/18/2020: sinus bradycardia, otherwise normal ECG. Lung perfusion scan 10/17/2019: low probability for PE PFT 09/19/2019: (care everywhere) normal. Cardiac cath (09/18/2020) (care everywhere) SUMMARY OF THE FINDINGS: 1. Normal coronary angiogram. 2. Normal filling pressures. 3. Normal pulmonary arterial pressures. 4. Preserved cardiac output and cardiac index. RECOMMENDATIONS: 1. Medical therapy. 2. Follow up in Cardiology Clinic. 3. The patient may resume Eliquis therapy for factor V Leiden the next day. PLAN: This patient is optimally prepared for surgery pending clearance to Eliquis. Message sent to hematology Letter faxed to cardiology CONSULTS: Letter will be faxed to lieutenant/deputy Dr. Nguyễn to ensure optimized to proceed Cardiology office note Dr. Nguyễn 03/16/2023 (care everywhere) Assessment/Plan Diagnoses and all orders for this visit: Aneurysm of ascending aorta without rupture (CMS/HCC) Factor V Leiden (CMS/HCC) Essential hypertension Compression of vein Dyspnea on exertion SVT (supraventricular tachycardia) - metoprolol tartrate (Lopressor) 50 mg tablet; Take 1 tablet (50 mg) by mouth in the morning and at bedtime. - Cardiac event monitor; Future Palpitations - Cardiac event monitor; Future aneurysm of ascending aorta -CT chest 07/2016 - ascending aneurysm measured 4.2 cm -CTA done 06/2019 showing ascending aortic aneurysm unchanged in size since 2016 measuring 4.2cm x 4.3cm -ECHO 07/16/19 AscAo 4.5cm -Abdominal aorta US 06/2019 showing no AAA -Recent ECHO 05/27/20 and 01/2023 showing aneurysm stable at 4.4cm iliac vein compression syndrome -Hx femoral vein to femoral vein bypass. She has occlusion of the left iliac vein. She had an arthrectomy and a femoral to femoral vein bypass -Hx chronic left leg DVT - on eliquis -Continue compression stockings and continue to follow with vascular factor V Leiden mutation -has Hx clots, also follows with vascular surgery-Currently taking eliquis Her prior cardiac workup was non-revealing. She continues to have dyspnea on exertion. Her prior PFTs were normal. Her cardiopulmonary exercise test showed mild limitation. I think she had deconditioning and I encouraged regular cardiovascular exercises. The event monitor showed episodes of short runs of SVT. I will increase metoprolol tartrate to 50 mg twice daily. I will check a follow-up event monitor in 3 months. Her ascending aortic aneurysm has been stable by echocardiography at 4.4 cm. We can plan a follow-up echocardiogram in 1 year. I will see her in follow-up in 6 months, preferably with a [id number] visit Follow up in about 6 months (around 09/14/2023). Seen via telemedicine (me and the patient are not located physically in the same location). The visit was done via audio only using phone line. The patient consented to the use of telehealth and to the use of potentially unsecured service that may carry some privacy risks. Time spent during this visit in medical discussion was 11 minutes. Yas Nguyễn MD Hematology consultation notes Gardenia Gupta PA-C 06/13/2023 ASSESSMENT/PLAN: 1. Factor V Leiden: Recurrent blood clots since 2008; prior therapy with warfarin, Arixtra and xarelto Xarelto changed to eliquis for insurance reasons Continue eliquis 2.5 mg BID for now --refill provided 2. Peripheral Vascular Disease Follows with [facility] (Dr. Scanlon) 3. Ischemic Vascular Disease Follows at [place] (Dr. Christy Moreland) 4. Abdominal symptoms. Follows Dr. Garcia at [facility] , now with gastroparesis See back in 1 year as planned and continue follow-up with GI as scheduled. Gardenia Gupta PA-C The Following Tests/Procedures Have Been Initiated: Labs not indicated per PACC protocol, EKG not indicated per [facility]ACC protocol Planned Anesthetic: Per anesthesia choice Instructions Given to Patient: Patient given verbal instructions and voices comprehension and compliance. Copy sent electronically via My Chart, email, or mobile device. This is a virtual visit. It required patient-provider interaction for the medical decision making as documented above. Patient declined PCN allergy testing SIGNATURE: Casey Mcadams PA-C PATIENT NAME: Naila Beltran DATE: 08/09/2023 TIME: 1:30 PM PAGER/CONTACT #: [facility] 08-09-2023 History and physical note PREANESTHESIA CONSULT CLINIC TELEHEALTH VISIT Patient has been identified by name and date of : Yes This is a virtual visit using [email or web address] Zoom Video Visit. It require patient-provider interaction for the medical decision making as documented below. Reason for contact: PACC visit Accompanied by: Self Scheduled Surgery: EGD with endoscopic per oral pyloromyotomy I have communicated my name and active licensure. The patient's identity and physical location were verified at the time of this visit. Either the patient or their legal public health representative has been informed of the risks and benefits of -- and alternatives to -- treatment through a remote evaluation and consents to proceed with the evaluation remotely. ASSESSMENT: 1. Preop examination Scheduled for above procedure 2. Neck pain Patient reports she has a pinched nerve in her neck. She denies numbness/tingling with neck ROM 3. Ascending aorta dilation (HCC) 4.4 cm ascending aortic aneurysm. Stable per lieutenant/deputy Dr. Nguyễn's note with plan for yearly follow-up echo 4. Gastroesophageal reflux disease, unspecified whether esophagitis present Takes Prevacid prn. Patient states that coca-cola and peppermints are helpful for symptoms. See HPI 5. Gastroparesis due to DM (HCC) (HCC) See HPI. Scheduled for above procedure. Patient will be NPO after midnight and will follow surgeon's pre-op dietary instructions 6. 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 She admits to chronic left leg DVT. Denies acute symptoms. She is maintained on Eliquis and follows with hematology 7. Hyperlipidemia, unspecified hyperlipidemia type On Lipitor 8. Obesity, Class II, BMI 35-39.9 BMI 38 9. SOB (shortness of breath) Patient admits to chronic SOB with exertion. She uses Albuterol prn up to twice a day, but typically only when she's carrying something while climbing the stairs. She does not use it daily. She denies acute symptoms. She has had cardiac workup and spirometry. Stable. 10. PVD (peripheral vascular disease) ([facility]) History of stents and x2 lower extremity bypass procedures. She will continue 81 mg aspirin for procedure. 11. History of DVT (deep vein thrombosis) Patient has had multiple DVTs. Her last acute DVT was ~2019. Patient denies acute symptoms. She mentions she has a chronic left leg DVT. She is on Eliquis. 12. Diabetes mellitus type 2 ([facility]) On Glyburide and Janumet. Patient's most recent Hgb A1C was 7.4% on 06/28/2023. Labs within PACC guidelines to proceed. 13. Anxiety 14. PTSD On Buspar tid which is helpful. Patient denies SI/HI. Patient admits to PTSD. She denies triggers we should be aware of for her procedure. 15. Seizure disorder ([facility]) Controlled on Keppra. Patient reports last seizure was about 6-8 years ago. Stable per patient. METS: Walk a block or two on level ground (2.75 METs) Climb a flight of stairs or walk up a hill (5.50 METs) Patient denies any chest pain or undue shortness of breath with the above physical activity. Goes to [place] sometimes, active and cares for 2 year old grandchild, but admits to chronic MIRELES. She might use her inhaler if climbing the stairs She admits to occasional resting dull achy chest pain after activity ANESTHESIA FINDINGS: Intubation History: No history of difficult intubation Significant Anesthesia Considerations: Difficult IV/Vein Access: has small and rolling veins, often needs small needle Airway Exam: General: Obese Mallampati Score is CLASS II ULBT: Unable to perform Neck: short neck, full ROM Mouth: Normal tongue size and Mouth opening greater than 2 finger breaths Dentition: Edentulous Airway History: No abnormal airway history STOP BANG Score: Criteria: Tired Age over 50 (53 year old) Score = 2 Subjective CHIEF COMPLAINT: Patient presents with: Pre-Op Visit HPI: This is a 52 year old female who presents with nausea, vomiting, early satiety and intermittent abdominal pain. Symptoms started 2-3 years ago. She admits to GERD that is sometimes controlled. Drinking coke and peppermints are helpful for her symptoms. She was diagnosed with gastroparesis and elects to proceed with above procedure. . ACTIVE PROBLEM LIST Hypercoagulable State (Hcc) Vascular Disease Anticoagulated Hld (Hyperlipidemia) Coronary Artery Disease of [place] Artery of [place] Heart With Stable Angina Pectoris (Hcc) Diabetes Mellitus Type 2 (Hcc) Gerd (Gastroesophageal Reflux Disease) Personal History of Dvt (Deep Vein Thrombosis) Fatty Liver Morbid Obesity (Hcc) Seizures (Hcc) Sob (Shortness of Breath) Pvd (Peripheral Vascular Disease) (Hcc) Ascending Aorta Dilation (Hcc) History of Covid-19 Obesity, Class III, BMI >= 40 Hereditary Coagulation Factor Deficiency (Hcc) Mild Episode of Recurrent Major Depressive Disorder (Hcc) Gastroparesis Due to Dm (Hcc) (Hcc) Obesity, Class II, Bmi 35-39.9 Anxiety Ptsd (Post-Traumatic Stress Disorder) PAST MEDICAL HISTORY Diagnosis Date Coronary artery disease involving [place] coronary artery of [place] heart without angina pectoris 02/06/2020 Depression DVT of leg (deep venous thrombosis) (HCC) Gastroparesis History of blood transfusion x 3- no reactions History of COVID-19 03/04/2020 Seizures (HCC) Type 2 diabetes mellitus without complication, without long-term current use of insulin (HCC) 02/06/2020 PAST SURGICAL HISTORY Procedure Laterality Date HYSTERECTOMY HX LAPAROSCOPIC CHOLECYSTECTOMY 03/16/2020 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 PAST SURGICAL HISTORY OF left leg x 6 to remove blood clots PAST SURGICAL HISTORY OF jugular vein to remove blood clots PAST SURGICAL HISTORY OF vein bypass x 2 PAST SURGICAL HISTORY OF bladder/urethra surgery as infant FAMILY HISTORY Problem Relation Age of Onset Diabetes Mother Hypertension Mother Stroke Mother Kidney Disease Mother Diabetes Father Lipids Father Asthma Brother Anesthesia Problems No Family History Social History Tobacco Use Smoking status: Never Smokeless tobacco: Never Tobacco comments: Boyfriend smokes Vaping Use Vaping Use: Never used Substance Use Topics Alcohol use: No Drug use: Never ALLERGIES Allergen Reactions Aspirin Unknown Heparin Analogues Unknown Keflex [Cephalexin] Hives Penicillin G Hives MEDICATIONS: Current Outpatient Medications Medication Sig metoprolol tartrate, short acting, (LOPRESSOR) 50 mg tablet Take 50 mg by mouth two times a day. tiZANidine (ZANAFLEX) 2 mg tablet Take 2 mg by mouth every 8 hours as needed (neck pain). busPIRone (BUSPAR) 10 mg tablet Take 10 mg by mouth three times a day. lansoprazole (PREVACID 24HR) 15 mg capsule Take 1 capsule by mouth once daily as needed. lubiprostone (AMITIZA) 8 mcg capsule Take 1 capsule by mouth two times a day with meals. ELIQUIS 2.5 mg tab(s) Take 1 tablet by mouth two times a day. glyBURIDE (DIABETA) 5 mg tablet Take 5 mg by mouth. Takes 1 tablet with each small meal. Usually about 3 per day cetirizine (ZYRTEC) 10 mg tablet Take 10 mg by mouth. Fluticasone Furoate 27.5 mcg/actuation nasal spray fluticasone Fluticasone Furoate Active 1 SPRAY Intranasal Daily June 13, 2017 7:29am 06-13-2017 [facility] ([address]) sitaGLIPtin-metFORMIN (JANUMET) 50-500 mg per tablet Take 1 tablet by mouth twice daily with meals. aspirin 81 mg chewable tablet q 24 HR. albuterol HFA (PROVENTIL HFA, VENTOLIN HFA) 90 mcg/actuation inhaler Ventolin HFA 90 mcg/actuation aerosol inhaler levETIRAcetam XR (KEPPRA XR) 500 mg 24 hr tablet Take 1,500 mg by mouth daily at bedtime. atorvastatin (LIPITOR) 40 mg tablet Take 40 mg by mouth once daily. iv contrast (will be provided with radiology [...] in the CT contrast administration guidelines link. enteric contrast (will be provided with radiology test) For CT ABD/PEL W IVCON Routine order Administer, As Directed One Time Only, via Oral, Rectal, both Oral and Rectal, Enteric Tube, Stoma or Indwelling Catheter, Enteric Contrast as designated per enteric contrast guidelines Comp.Stocking,Thigh,Long,X-Lrg misc Wear stocking daily pregabalin (LYRICA) 150 mg capsule Take 150 mg by mouth twice daily. (Patient not taking: Reported on 08/09/2023) Multivitamins ORAL Chew None Entered No current facility-administered medications for this visit. COVID-19 Immunization Status Overdue - Covid-19 Vaccine ( season) Overdue since 10/28/2022 12/31/2020 Imm Admin: COVID-19 original vaccine, full dose, monovalent (MODERNA) 06/15/2020 Imm Admin: COVID-19 original vaccine, full dose, monovalent (MODERNA) 05/18/2020 Imm Admin: COVID-19 original vaccine, full dose, monovalent (MODERNA) Only the first 3 history entries have been loaded, but more history exists. Had COVID-19 2020 (asymptomatic). Denies complications or hospitalization. REVIEW OF SYSTEMS: Pain Assessment: General: Denies fever or malaise Neuro: Postive for seizures since childhood - last seizure 6-8 years ago, Negative for Stroke-residual deficit Parkinson's Disease Multiple Sclerosis Respiratory: Positive for SOB - uses Albuterol prn, Negative for COPD, Current cough, URI < 2 weeks Cardiovascular: Positive for: Ascending aorta dilation, PVD s/p left groin stents and vein bypass, factor V leiden, HTN, HLD, lymphedema, Negative for Recent HI, Angina, Chest Pain, CHF, Valvular Heart Disease Has chronic DVT left - on Eliquis. Last acute DVT ~2019 fem GI: IBS, GERD, see HPI : No history of dysuria, frequency or incontinence,, stones or chronic kidney disease Endocrine: diabetes - last home BS 147. Admits to neuropathy Denies thyroid disease/symptoms Denies oral steroids in the last 30 days Hematology: Bleeding / clotting disorders (Factor V Leiden), Chronic anti-coagulation / platelet meds (Eliquis) Oncology: No history of CA metastasis, chemo within 30 days, or radiotherapy within 90 days. Has not lost 10% of body wt in 6 months. No history of oncological symptoms or problems. Psych: Anxiety - on Buspar. Denies SI/HI PTSD - denies triggers we should be aware of for surgery. Musculoskeletal: neck pain -states has pinched nerve. Occasional sciatica. Denies numbness/tingling with neck ROM Skin: Negative for lesions, rash and itching. Objective PHYSICAL EXAM: Pulse 89[apple watch[ Ht 5' 7 [patient reported[ (1.70m) Wt 245 lb (111.1kg) LMP 04/01/2011 BMI 38.36 kg/(m^2). VIDEO EXAM: (if completed, exam performed via video enabled technology) GENERAL: alert and appropriate, in no distress, well-hydrated, well nourished, and happy, smiling, interactive HEAD: normocephalic, no abnormality or lesion noted EYES: no injection NOSE: external nose normal without rhinorrhea NECK: short neck, full ROM RESPIRATORY: breathing non-labored and no grunting/flaring/retractions CHEST: equal chest rise with normal respiratory effort HEART: Patient confirmed radial pulse and counted aloud. Patient reports regular rhythm. HR 89 BPM on apple watch. No cyanosis ABDOMEN: mild TTP noted in the [facility]: no cerebral deficits noted Diagnostic tests reviewed for today's visit: Lab Value Units Date High Low HB 11.7 g/dL 06/13/2023 15.5 11.5 HCT 36.7 % 06/13/2023 46.0 36.0 WBC 10.98 k/uL 06/13/2023 11.00 3.70 PLT 236 k/uL 06/13/2023 400 150 NA 139 mmol/L 06/13/2023 144 136 K 3.5 mmol/L 06/13/2023 5.1 3.7 GLUC 96 mg/dL 06/13/2023 99 74 BUN 14 mg/dL 06/13/2023 21 7 CREAT 0.89 mg/dL 06/13/2023 0.96 0.58 PTSEC No results within date range. INR No results within date range. APTT No results within date range. ALT 23 U/L 06/13/2023 38 7 AST 22 U/L 06/13/2023 35 13 TBILI 0.3 mg/dL 06/13/2023 1.3 0.2 TSH No results within date range. Cardiac testing per cardiology office note Echocardiogram 02/15/2023: Global left ventricular systolic function is normal, visually estimated ejection fraction is 55 to 60%. Right ventricle is poorly seen, appears normal in size with reduced systolic function. Normal diastolic function. Valves are poorly seen, no significant valvular abnormalities. The ascending aorta is moderately dilated measuring 4.4 cm. Cardiopulmonary exercise stress test 11/18/2021: RER of 1.1, VE/VCO2 equals 33.2, Peak Oxygen Consumption (VO2) was 14.9 ml/O2/kg/min or 4.3 METS. Functional capacity was 81% of predicted peak VO2, which is low. Pulmonary Function is normal. Peak O2 Pulse was 15 ml/beats, which is normal. Breathing reserve was 78% or 59 liters, which is normal. This study shows no evidence of ischemia. Arrhythmias seen: none Maximal, symptom-limited treadmill test is limited by angina. cardiac event monitor 12/05/2022 - 01/04/2023: Sinus with events of sinus tachycardia, normal sinus and sinus arrhythmia, sinus bradycardia, SVT. Prior testing history: Holter monitor 04/07/2021 - 04/14/2021 (7 days): sinus rhythm with sinus bradycardia and tachycardia noted. Heart rate range 57 to 162 bpm, average, 57 bpm. Rare PVCs and PACs noted. No SVT, NSVT, AF or significant arrhythmias seen. ECG 09/18/2020: sinus bradycardia, otherwise normal ECG. Lung perfusion scan 10/17/2019: low probability for PE PFT 09/19/2019: (care everywhere) normal. Cardiac cath (09/18/2020) (care everywhere) SUMMARY OF THE FINDINGS: 1. Normal coronary angiogram. 2. Normal filling pressures. 3. Normal pulmonary arterial pressures. 4. Preserved cardiac output and cardiac index. RECOMMENDATIONS: 1. Medical therapy. 2. Follow up in Cardiology Clinic. 3. The patient may resume Eliquis therapy for factor V Leiden the next day. PLAN: This patient is optimally prepared for surgery pending clearance to Eliquis. Message sent to hematology Letter faxed to cardiology CONSULTS: Letter will be faxed to lieutenant/deputy Dr. Nguyễn to ensure optimized to proceed Cardiology office note Dr. Nguyễn 03/16/2023 (care everywhere) Assessment/Plan Diagnoses and all orders for this visit: Aneurysm of ascending aorta without rupture (CMS/HCC) Factor V Leiden (CMS/HCC) Essential hypertension Compression of vein Dyspnea on exertion SVT (supraventricular tachycardia) - metoprolol tartrate (Lopressor) 50 mg tablet; Take 1 tablet (50 mg) by mouth in the morning and at bedtime. - Cardiac event monitor; Future Palpitations - Cardiac event monitor; Future aneurysm of ascending aorta -CT chest 07/2016 - ascending aneurysm measured 4.2 cm -CTA done 06/2019 showing ascending aortic aneurysm unchanged in size since 2016 measuring 4.2cm x 4.3cm -ECHO 07/16/19 AscAo 4.5cm -Abdominal aorta US 06/2019 showing no AAA -Recent ECHO 05/27/20 and 01/2023 showing aneurysm stable at 4.4cm iliac vein compression syndrome -Hx femoral vein to femoral vein bypass. She has occlusion of the left iliac vein. She had an arthrectomy and a femoral to femoral vein bypass -Hx chronic left leg DVT - on eliquis -Continue compression stockings and continue to follow with vascular factor V Leiden mutation -has Hx clots, also follows with vascular surgery-Currently taking eliquis Her prior cardiac workup was non-revealing. She continues to have dyspnea on exertion. Her prior PFTs were normal. Her cardiopulmonary exercise test showed mild limitation. I think she had deconditioning and I encouraged regular cardiovascular exercises. The event monitor showed episodes of short runs of SVT. I will increase metoprolol tartrate to 50 mg twice daily. I will check a follow-up event monitor in 3 months. Her ascending aortic aneurysm has been stable by echocardiography at 4.4 cm. We can plan a follow-up echocardiogram in 1 year. I will see her in follow-up in 6 months, preferably with a [id number] visit Follow up in about 6 months (around 09/14/2023). Seen via telemedicine (me and the patient are not located physically in the same location). The visit was done via audio only using phone line. The patient consented to the use of telehealth and to the use of potentially unsecured service that may carry some privacy risks. Time spent during this visit in medical discussion was 11 minutes. Yas Nguyễn MD Hematology consultation notes Gardenia Gupta PA-C 06/13/2023 ASSESSMENT/PLAN: 1. Factor V Leiden: Recurrent blood clots since 2008; prior therapy with warfarin, Arixtra and xarelto Xarelto changed to eliquis for insurance reasons Continue eliquis 2.5 mg BID for now --refill provided 2. Peripheral Vascular Disease Follows with [facility] (Dr. Scanlon) 3. Ischemic Vascular Disease Follows at [place] (Dr. Christy Moreland) 4. Abdominal symptoms. Follows Dr. Garcia at [facility] , now with gastroparesis See back in 1 year as planned and continue follow-up with GI as scheduled. Gardenia Gupta PA-C The Following Tests/Procedures Have Been Initiated: Labs not indicated per PACC protocol, EKG not indicated per PACC protocol Planned Anesthetic: Per anesthesia choice Instructions Given to Patient: Patient given verbal instructions and voices comprehension and compliance. Copy sent electronically via My Chart, email, or mobile device. This is a virtual visit. It required patient-provider interaction for the medical decision making as documented above. Patient declined PCN allergy testing SIGNATURE: Casey Mcadams PA-C PATIENT NAME: Naila Beltran DATE: 08/09/2023 TIME: 1:30 PM PAGER/CONTACT #: documented in this encounter [facility] 08-02-2023 Note HNO ID: [id number] Author: CAROL COTTRELL, PhD Service: ? Author Type: Psychologist Type: Progress Notes Filed: 08/02/2023 17:01 Note Text: ``[facility] [place] Name: Naila Beltran MR#: [id number] Date: 08/02/2023 Time: ? hour Referred by: Dr. Quiles Reason for Referral: gastroparesis interdisciplinary clinic - address psychological factors as they affect physical condition Information relayed back to referral source via electronic medical record Her chart was reviewed, and she gave her own complex medical history. She was seen with her partner. The basic principles of the brain gut connection were explored. Emphasis was placed on the effects of stress and emotions on physiology. She says she had been on medication for her depression and anxiety but has come off and said that she wanted to deal with her GI problems first before she went back to her PCP to look and other medication possibilities. We discussed why she might benefit from starting that treatment now and how it might address her mood as well as her GI issues. She discussed ways in which her medical condition had had an effect on her life. She has a very poor diet; she has not had weight loss. She was given information about ways to mediate her emotional and physiological response. She was introduced to relaxation training. She was given the website for the [facility] and shown the relaxation recordings with the recommendation to practice this and the rationale behind their use. Follow-up was discussed. Carol Liang, Ph.D. [facility] 08-02-2023 History of Present illness Narrative ``[facility] [place] Name: Naila Beltran MR#: [id number] Date: 08/02/2023 Time: hour Referred by: Dr. Quiles Reason for Referral: gastroparesis interdisciplinary clinic - address psychological factors as they affect physical condition Information relayed back to referral source via electronic medical record Her chart was reviewed, and she gave her own complex medical history. She was seen with her partner. The basic principles of the brain gut connection were explored. Emphasis was placed on the effects of stress and emotions on physiology. She says she had been on medication for her depression and anxiety but has come off and said that she wanted to deal with her GI problems first before she went back to her PCP to look and other medication possibilities. We discussed why she might benefit from starting that treatment now and how it might address her mood as well as her GI issues. She discussed ways in which her medical condition had had an effect on her life. She has a very poor diet; she has not had weight loss. She was given information about ways to mediate her emotional and physiological response. She was introduced to relaxation training. She was given the website for the [facility] and shown the relaxation recordings with the recommendation to practice this and the rationale behind their use. Follow-up was discussed. Carol Liang, Ph.D. documented in this encounter [facility] 08-02-2023 Nurse Note ELECTROGASTROGRAPY W/ TEST Operation / Procedure performed 500 cc water intake [facility] 08-02-2023 Nurse Note ELECTROGASTROGRAPY W/ TEST Operation / Procedure performed 500 cc water intake documented in this encounter [facility] 08-02-2023 Note HNO ID: [id number] Author: KATJA RIOS RN Service: ? Author Type: Registered Nurse Type: Progress Notes Filed: 08/02/2023 14:00 Note Text: Patient scheduled for GPOEM/POP Post procedure virtual visit scheduled Aware of need for [facility] Pre and post POP instructions discussed in detail with written copy provided Katja Rios RN August 02, 2023 2:[address] [facility] 08-02-2023 History of Present illness Narrative Patient scheduled for GPOEM/POP Post procedure virtual visit scheduled Aware of need for [facility] Pre and post POP instructions discussed in detail with written copy provided Katja Rios RN August 02, 2023 2:00 PM Assessment ASSESSMENT 52 year old female with medical refractory gastroparesis. PLAN I discussed surgical therapy for gastroparesis in detail. Naila Beltran is candidate for G-POEM/POP (Per-Oral Pyloromyotomy) Will need to hold Anticoagulation The patient was warned about possible complications from the POP procedure including but not limited to increased nausea, vomiting, bloating, abdominal pain, ulcers and bleeding, increased diarrhea to the point of urgency or even stool incontinence, and finally gastric perforation. They agree to proceed with the procedure. __ NAME: Naila Beltran CLINIC NO: [id number] DATE OF SERVICE: August 01, 2023 This is an initial consultation for Naila Beltran who was referred to me by Dr. Vreonica Quiles for evaluation of medical refractory gastroparesis. My final recommendation will be communicated via shared electronic medical record. CHIEF COMPLAINT DM Gastroparesis HISTORY OF PRESENT ILLNESS Naila Beltran is a 52 year old female who comes in today for surgical evaluation for management of gastroparesis. The patient has been evaluated thoroughly including an EGD, and gastric emptying study. 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 Stent vessels - left leg Phlegmagia 2008 and 2011), incomplete bladder evacuation. HgbA1c: 7.4 06/28/2023 Duration of symptoms (months): 2 years, Urgency, bloating and left flank/epigastrium pain Weight changes in last 3 months: Stable Diet: Water, coke, peppermint, crackers, chicken and turkey, fish, rice sometimes, eggs, peanut butter, cherries, blueberries, yogurt. No salads or raw vegetables GERD: NO medications is symptomatic - previously was on pantoprazole and Pepcid without relief Dysphagia: Yes Bowel Movements: Alternating constipation and diarrhea. Can go up to 3 days without a BM Started on Amitiza today by Dr Quiles Pain: Constant LLQ pain stabbing in nature. Intermittent stabbing pain upper stomach with eating Narcotics: No Smoking/Vaping: No THC: No Previous surgery: Bladder surgery as an , iliac stents, hysterectomy 2011, Lap cholecystectomy 2020 Previous Feeding tube(s): No Date of Last EGD: 10/11/2019 EGD with Botox: No - If so, how long did it last: NA Exercise: Walking Job/Edu/Retired/Disability: Disability Since Jan 2009 Gastric Emptying Study Results (05/18/2023) 1 Hour = 70% Retained 2 Hour = 45% Retained 4 Hour = 21% Retained SMART Pill (none) Gastroparesis cardinal symptom index 1. nausea 5 2. retching 3 3. vomiting 3 4. stomach fullness 4 5. not able to finish a normal-sized meal 5 6. feeling excessively full after meals 5 7. loss of appetite 5 8. bloating (feeling like you need to loosen your clothes) 5 9. stomach or belly visibly larger 5 GCSI - 4.36 Scale (0-none; 1-very mild; 2-mild; 3-moderate; 4-severe; 5-very severe) PAST HISTORY PAST MEDICAL HISTORY Diagnosis Date Coronary artery disease involving [place] coronary artery of [place] heart without angina pectoris 02/06/2020 Depression DVT of leg (deep venous thrombosis) ([facility]) Gastroparesis History of blood transfusion x 3- no reactions History of COVID-19 03/04/2020 Seizures ([facility]) Type 2 diabetes mellitus without complication, without long-term current use of insulin ([facility]) 02/06/2020 PAST SURGICAL HISTORY Procedure Laterality Date HYSTERECTOMY HX LAPAROSCOPIC CHOLECYSTECTOMY 03/16/2020 PAST SURGICAL HISTORY OF left leg x 6 to remove blood clots PAST SURGICAL HISTORY OF jugular vein to remove blood clots PAST SURGICAL HISTORY OF vein bypass x 2 PAST SURGICAL HISTORY OF bladder/urethra surgery as FAMILY HISTORY Problem Relation Age of Onset Diabetes Mother Hypertension Mother Stroke Mother Kidney Disease Mother Diabetes Father Lipids Father Asthma Brother Anesthesia Problems No Family History Social History Tobacco Use Smoking status: Never Smokeless tobacco: Never Tobacco comments: Boyfriend smokes Vaping Use Vaping Use: Never used Substance Use Topics Alcohol use: No Drug use: Never Current Outpatient Medications on File Prior to Visit Medication Sig ELIQUIS 2.5 mg tab(s) Take 1 tablet by mouth two times a day. hyoscyamine SR (LEVBID) 0.375 mg 12 hr tablet Take 1 tablet by mouth twice daily. iv contrast (will be provided with radiology [...] in the CT contrast administration guidelines link. enteric contrast (will be provided with radiology test) For CT ABD/PEL W IVCON Routine order Administer, As Directed One Time Only, via Oral, Rectal, both Oral and Rectal, Enteric Tube, Stoma or Indwelling Catheter, Enteric Contrast as designated per enteric contrast guidelines lansoprazole orally disintegrating (PREVACID) 30 mg disintegrating tablet Take 1 tablet by mouth once daily. glyBURIDE (DIABETA) 5 mg tablet take 2 tablets by mouth twice a day with meals docusate sodium (COLACE) 100 mg capsule Take 100 mg by mouth as needed. cetirizine (ZYRTEC) 10 mg tablet Take 10 mg by mouth. Fluticasone Furoate 27.5 mcg/actuation nasal spray fluticasone Fluticasone Furoate Active 1 SPRAY Intranasal Daily June 13, 2017 7:29am 06-13-2017 [facility] (53185) sitaGLIPtin-metFORMIN (JANUMET) 50-500 mg per tablet Take 1 tablet by mouth twice daily with meals. aspirin 81 mg chewable tablet q 24 HR. albuterol HFA (PROVENTIL HFA, VENTOLIN HFA) 90 mcg/actuation inhaler Ventolin HFA 90 mcg/actuation aerosol inhaler levETIRAcetam XR (KEPPRA XR) 500 mg 24 hr tablet Take 500 mg by mouth twice daily. busPIRone HCl 30 mg tablet take 1/3 tablet by mouth three times a day metoprolol tartrate, short acting, (LOPRESSOR) 25 mg tablet twice daily. atorvastatin (LIPITOR) 40 mg tablet Take 40 mg by mouth once daily. Comp.Stocking,Thigh,Long,X-Lrg misc Wear stocking daily pregabalin (LYRICA) 150 mg capsule Take 150 mg by mouth twice daily. Multivitamins ORAL Chew None Entered No current facility-administered medications on file prior to visit. REVIEW OF SYSTEMS: General: No weight loss, malaise or fevers. 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 : N/A Endocrine: Diabetes Mellitus on oral agent Hematology: Chronic anti-coagulation / platelet meds (eliquis) Oncology: No history of CA metastasis, chemo within 30 days, or radiotherapy within 90 days. Has not lost 10% of body wt in 6 months. No history of oncological symptoms or problems. Psych: Anxiety, Depression Musculoskeletal: Pinch cervical nerve Skin: Negative for lesions, rash and itching. Physical Exam BP 146/69 (BP Site: Right Arm, BP Position: Sitting, BP Cuff Size: Regular Adult) Pulse (!) 50 Ht 170.2 cm (5' 7 ) Wt 113.7 kg (250 lb 10.6 oz) LMP 04/01/2011 BMI 39.26 kg/m Gen - NAD Cervical - No Cervical LN, normal ROM HEENT - Anicteric sclera, MMM CV - RRR Pulm - No accessory muscle use, breaths appear even Abd - Soft, ND, left sided abdominal TTP Ext - No LE Edema documented in this encounter [facility] 08-02-2023 Note HNO ID: [id number] Author: MARTINE BOWLING MD Service: ? Author Type: Physician Type: Progress Notes Filed: 08/02/2023 14:00 Note Text: Assessment ASSESSMENT 52 year old female with medical refractory gastroparesis. PLAN I discussed surgical therapy for gastroparesis in detail. Naila Beltran is candidate for G-POEM/POP (Per-Oral Pyloromyotomy) Will need to hold Anticoagulation The patient was warned about possible complications from the POP procedure including but not limited to increased nausea, vomiting, bloating, abdominal pain, ulcers and bleeding, increased diarrhea to the point of urgency or even stool incontinence, and finally gastric perforation. They agree to proceed with the procedure. __ NAME: Naila Beltran CLINIC NO: [id number] DATE OF SERVICE: August 01, 2023 This is an initial consultation for Naila Beltran who was referred to me by Dr. Veronica Quiles for evaluation of medical refractory gastroparesis. My final recommendation will be communicated via shared electronic medical record. CHIEF COMPLAINT DM Gastroparesis HISTORY OF PRESENT ILLNESS Naila Beltran is a 52 year old female who comes in today for surgical evaluation for management of gastroparesis. The patient has been evaluated thoroughly including an EGD, and gastric emptying study. 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 Stent vessels - left leg Phlegmagia 2008 and 2011), incomplete bladder evacuation. HgbA1c: 7.4 06/28/2023 Duration of symptoms (months): 2 years, Urgency, bloating and left flank/epigastrium pain Weight changes in last 3 months: Stable Diet: Water, coke, peppermint, crackers, chicken and turkey, fish, rice sometimes, eggs, peanut butter, cherries, blueberries, yogurt. No salads or raw vegetables GERD: NO medications is symptomatic - previously was on pantoprazole and Pepcid without relief Dysphagia: Yes Bowel Movements: Alternating constipation and diarrhea. Can go up to 3 days without a BM Started on Amitiza today by Dr Quiles Pain: Constant LLQ pain stabbing in nature. Intermittent stabbing pain upper stomach with eating Narcotics: No Smoking/Vaping: No THC: No Previous surgery: Bladder surgery as an infant, iliac stents, hysterectomy 2011, Lap cholecystectomy 2020 Previous Feeding tube(s): No Date of Last EGD: 10/11/2019 EGD with Botox: No - If so, how long did it last: NA Exercise: Walking Job/Edu/Retired/Disability: Disability Since Jan 2009 Gastric Emptying Study Results (05/18/2023) 1 Hour = 70% Retained 2 Hour = 45% Retained 4 Hour = 21% Retained SMART Pill (none) Gastroparesis cardinal symptom index 1. nausea 5 2. retching 3 3. vomiting 3 4. stomach fullness 4 5. not able to finish a normal-sized meal 5 6. feeling excessively full after meals 5 7. loss of appetite 5 8. bloating (feeling like you need to loosen your clothes) 5 9. stomach or belly visibly larger 5 GCSI - 4.36 Scale (0-none; 1-very mild; 2-mild; 3-moderate; 4-severe; 5-very severe) PAST HISTORY PAST MEDICAL HISTORY Diagnosis Date Coronary artery disease involving [place] coronary artery of [place] heart without angina pectoris 02/06/2020 Depression DVT of leg (deep venous thrombosis) ([facility]) Gastroparesis History of blood transfusion x 3- no reactions History of COVID-19 03/04/2020 Seizures ([facility]) Type 2 diabetes mellitus without complication, without long-term current use of insulin ([facility]) 02/06/2020 PAST SURGICAL HISTORY Procedure Laterality Date HYSTERECTOMY HX LAPAROSCOPIC CHOLECYSTECTOMY 03/16/2020 PAST SURGICAL HISTORY OF left leg x 6 to remove blood clots PAST SURGICAL HISTORY OF jugular vein to remove blood clots PAST SURGICAL HISTORY OF vein bypass x 2 PAST SURGICAL HISTORY OF bladder/urethra surgery as FAMILY HISTORY Problem Relation Age of Onset Diabetes Mother Hypertension Mother Stroke Mother Kidney Disease Mother Diabetes Father Lipids Father Asthma Brother Anesthesia Problems No Family History Social History Tobacco Use Smoking status: Never Smokeless tobacco: Never Tobacco comments: Boyfriend smokes Vaping Use Vaping Use: Never used Substance Use Topics Alcohol use: No Drug use: Never Current Outpatient Medications on File Prior to Visit Medication Sig ELIQUIS 2.5 mg tab(s) Take 1 tablet by mouth two times a day. hyoscyamine SR (LEVBID) 0.375 mg 12 hr tablet Take 1 tablet by mouth twice daily. iv contrast (will be provided with radiology test) CT ABD/PEL -Inject, intravenously, once for 1 dose.No IV access, insert saline lock prior to the beginning of sedation, infusion, injection of (more content not included)... [facility] 08-02-2023 Nurse Note What is the reason for your visit today? New gp Who is your referring physician? Cece hannon Are you having poor oral intake? YES Have you had unintentional weight loss of 15 lbs/7 Kg in the last 3-6 months? NO Bowels: diarrhea Wound: clean & dry Temperature: No Drains: No [facility] 08-02-2023 Nurse Note What is the reason for your visit today? New gp Who is your referring physician? Cece hannon Are you having poor oral intake? YES Have you had unintentional weight loss of 15 lbs/7 Kg in the last 3-6 months? NO Bowels: diarrhea Wound: clean & dry Temperature: No Drains: No What is the reason for your visit today? new Who is your referring physician? pcp Are you having poor oral intake? NO Have you had unintentional weight loss of 15 lbs/7 Kg in the last 3-6 months? NO Bowels: constipated Wound: n/a Temperature: No Drains: No documented in this encounter [facility] 08-02-2023 History of Present illness Narrative GASTROPARESIS CONSULT Patient is referred by Dr. Cece Hannon for an opinion regarding GP and my final recommendations will be communicated back to the requesting physician by way of a copy of today's office notes. PRESENTING COMPLAINT & HISTORY Naila is a 52 yr old female w/hx of CAD, depression, DVT of leg, Leiden Factor 5, hx blood tranfusion x3, DM2, seizures, hysterectomy, and lap cholecystectomy that had an abnormal gastric emptying study 04/2023 showing 21% retention at 4 hours. Gastroparesis symptoms started 1.5 years ago. DM2, diagnosed 2017, Hgb A1c - unsure of result, neuropathy in feet and legs. Denies being on any GLP-1 Reptor Agnotists for DM management. Abd pain is intermittent with certain foods. Diarrhea and constipation alternate. Failed Miralax and Dulcolax. Takes Peppermint for N/V. Failed Zofran. C/o severe early satiety, lack of appetite and stomach fullness. Diet: snacks as tolerated. Failed Reglan and Buspar. Patient is interested in learning more about EMPTIES Trial: Yes Patient is a candidate for EMPTIES Trial: Yes Gastrointestinal Symptoms Reflux/heartburn: Yes was on pantoprazole - no longer taking anything Abdominal pain/discomfort: Yes intermittent with certain foods. Weight loss: some weight loss just unsure how much. Do you have less than 3 bowel movements per week? Yes sometimes Diarrhea: yes alternates Constipation: yes can go up to 3 days; states laxatives don't work. Failed Miralax Malnutrition: unsure Gastroparesis Cardinal Symptom Index (CGSI) 1. Nausea: 5 2. Retchin 3. Vomitin 4. Stomach fullness: 4 5. Not able to finish a normal-sized meal: 5 6. Feeling excessively full after meals: 5 7. Loss of appetite: 5 8. Bloating (feeling like you need to loosen your clothes): 5 9. Stomach or belly visibly larger: 5 CGSI Score: 4.36 Scale (0-none; 1-very mild; 2-mild; 3-moderate; 4-severe; 5-very severe) MEDICATION HISTORY Promotility Drugs - Reglan (Metoclopramide): failed - Gimoti (Metoclopramide nasal): No - Motilium (Domperidone): No - Erythromycin (E-mycin): No - Propulsid (Cisapride)_: No Other - Tricyclic Antidepressants (nortriptyline - Pamelor; amitriptyline - Elavil): No - Buspirone (Buspar): Yes took in the past - Mirtazapin (Remeron): No Anti-Nausea Medications - Compazine (Prochlorperazine): No - Phenergan (Promethazine): failed - Benadryl (Diphenhydramine): No - Zofran (Ondansetron): failed - Scopace (Scopolamine Patch): No - Granisetron (Kytril or Sancuso): No - Tigan (Trimethobenzamide)_: No Constipation Medications - Bulking Agents (Metamucil,Citrucel, Fibercon): yes - Osmotic Laxatives (MOM, Polyethylene glycol (PEG), lactulose, sorbitol,MiraLax, Chronulal, Cephulac,Xylitol): failed Miralax - Stimulant Laxatives (Ex-Lax, Senokot,Correctol, Dulcolax): failed Dulcolax - Stool Softeners (Colace): failed - Chloride Channel Activator (Amitiza): No - Linzess: No - Trulance: No - Motegrity: No Pain Medications - Does the patient see a paint spray tender for chronic abdominal pain?yes for neck - Is the patient taking narcotic pain medication for chronic abdominal pain? No - Narcotic Medications: (Tramadol, Fentanyl, codeine, hydrocodone, Hydromorphone, methadone, morphine, Oxycodone) No Drug use - History or current drug use (Marijuana, Cocaine, Heroine, etc...) No Eating Disorders - Does the patient have a history of eating disorders No Psychiatric Disorders - Does the patient have a history of psychiatric disorders including PTSD: Yes If yes, please explain: PTSD, depression and anxiety Nutrition - Has the patient met with a director market research for diet recommendations with Gastroparesis? No - Jejunostomy (J-tube): _No - Gastrostomy (G-tube): No - Gastro-Jejunostomy (GJ-tube): _No - Nasojejunal (NJ-tube): _No - Nasogastric (NG-tube): _No - TPN (IV): _No - IV home hydration (IV): _No Medical Records - Has the patient had a smart capsule study completed? No - Does the patient have a history of any foregut surgery (vagotomy, hiatal hernia repair/CARLOTTA Fundoplication, Heller Myotomy, gastrectomy, gastric bypass)?No If surgery, recent UGI? No - EGD: Yes - Botox Injections: No Patient Name Naila Beltran Age [age] year old Gastroparesis Consult Test Date Completed Results Labs EGD 10/11/2019 [facility] Imp[facility]: - mild fundal gastritis, biopsies obtained. Colonoscopy 10/11/2019 [facility] Imp[facility]: - normal colonoscopy to terminal ileum, random colon biopsies obtained to r/o microscopic colitis Gastric Emptying Study 05/18/23 [facility] IMPRESSION: Findings of moderate gastroparesis (21-35% gastric retention at 4 hours). RESULT: Calculated solid meal (or solid meal equivalent) gastric retention values: * 70% retention at 1 hour (normal range, 37-90%; accelerated emptying is defined as <30% at 1 hour) * 45% retention at 2 hours (normal range, <60%) * 21% retention at 4 hours (normal range, <10%) Consults GI PAST SURGICAL HISTORY Procedure Laterality Date HYSTERECTOMY HX LAPAROSCOPIC CHOLECYSTECTOMY 03/16/2020 PAST SURGICAL HISTORY OF left leg x 6 to remove blood clots PAST SURGICAL HISTORY OF jugular vein to remove blood clots PAST SURGICAL HISTORY OF vein bypass x 2 PAST SURGICAL HISTORY OF bladder/urethra surgery as Current Outpatient Medications Medication Sig Dispense Refill ELIQUIS 2.5 mg tab(s) Take 1 tablet by mouth two times a day. 60 tablet 11 hyoscyamine SR (LEVBID) 0.375 mg 12 hr tablet Take 1 tablet by mouth twice daily. 60 tablet 2 iv contrast (will be provided with radiology [...] CT contrast administration guidelines link. 1 Each 0 enteric contrast (will be provided with radiology test) For CT ABD/PEL W IVCON Routine order Administer, As Directed One Time Only, via Oral, Rectal, both Oral and Rectal, Enteric Tube, Stoma or Indwelling Catheter, Enteric Contrast as designated per enteric contrast guidelines 1 Each 0 lansoprazole orally disintegrating (PREVACID) 30 mg disintegrating tablet Take 1 tablet by mouth once daily. 30 tablet 2 glyBURIDE (DIABETA) 5 mg tablet take 2 tablets by mouth twice a day with meals docusate sodium (COLACE) 100 mg capsule Take 100 mg by mouth as needed. cetirizine (ZYRTEC) 10 mg tablet Take 10 mg by mouth. Fluticasone Furoate 27.5 mcg/actuation nasal spray fluticasone Fluticasone Furoate Active 1 SPRAY Intranasal Daily June 13, 2017 7:29am 06-13-2017 [facility] ([id number]) sitaGLIPtin-metFORMIN (JANUMET) 50-500 mg per tablet Take 1 tablet by mouth twice daily with meals. aspirin 81 mg chewable tablet q 24 HR. albuterol HFA (PROVENTIL HFA, VENTOLIN HFA) 90 mcg/actuation inhaler Ventolin HFA 90 mcg/actuation aerosol inhaler levETIRAcetam XR (KEPPRA XR) 500 mg 24 hr tablet Take 500 mg by mouth twice daily. busPIRone HCl 30 mg tablet take 1/3 tablet by mouth three times a day 0 metoprolol tartrate, short acting, (LOPRESSOR) 25 mg tablet twice daily. atorvastatin (LIPITOR) 40 mg tablet Take 40 mg by mouth once daily. Comp.Stocking,Thigh,Long,X-Lrg misc Wear stocking daily 1 Each 0 pregabalin (LYRICA) 150 mg capsule Take 150 mg by mouth twice daily. Multivitamins ORAL Chew None Entered No current facility-administered medications for this visit. ALLERGIES Allergen Reactions Aspirin Unknown Heparin Analogues Unknown Keflex [Cephalexin] Hives Penicillin G Hives Family History Problem Relation Age of Onset Diabetes Mother Hypertension Mother Stroke Mother Kidney Disease Mother Diabetes Father Lipids Father Asthma Brother Anesthesia Problems No Family History Social History Tobacco Use Smoking status: Never Smokeless tobacco: Never Tobacco comments: Boyfriend smokes Vaping Use Vaping Use: Never used Substance Use Topics Alcohol use: No Drug use: Never GI SPECIFIC ROS Difficulty swallowing / foods sticking in throat: No Hoarseness: No Chronic cough: No Regurgitation: Yes Chest pain: No Recent change in bowel movements: No Bloody or black, bowel movements: No Loss of control of bowel movements: No Night sweats, fever, chills: No Thought or memory problems: No Fluid in abdomen (ascites): No Prominent leg swelling: No Vomiting blood: No REVIEW OF SYSTEMS GENERAL: No weight loss, malaise or fevers HEENT: No changes in hearing or vision, no nose bleeds or other nasal problems RESPIRATORY: Negative for cough, hemoptysis, wheezing, COPD, dyspnea or shortness of breath CARDIOVASCULAR: Negative for chest pain, leg swelling, hypertension, CHF or palpitations : No history of dysuria, frequency or incontinence STUDENT TEACHING COORDINATOR: Negative for abnormal vaginal bleeding, abnormal vaginal discharge MUSCULOSKELETAL: joint pain or swelling and muscle pain SKIN: Negative for lesions, rash, and itching PSYCH: sleep fragmented ENDOCRINE: Negative for cold or heat intolerance, polyuria, polydipsia and goiter NEURO: SEE HPI PHYSICAL EXAMINATION LMP 04/01/2011 General appearance: alert and in no acute distress Skin: Skin color, texture, turgor normal, no suspicious rashes or lesions Head: normal Eyes: Anicteric sclera. Pupils are equally round and reactive to light. Extraocular movements are intact. Ears: Negative Nose/Sinuses: Negative Oropharynx: Negative findings: lips normal without lesions Neck: Negative findings: no asymmetry, masses, or scars Back: motor and sensory appear to be normal Lungs: Unlabored on room air Heart: RRR without murmur, gallop, or rubs. No ectopy Abdomen: Normal abdominal exam Extremities: Negative findings: No deformities present Musculoskeletal: No joint swelling, deformity, or tenderness Peripheral pulses: Normal Neuro: Negative findings: speech normal, mental status intact, cranial nerves 2-12 intact Plan Given the risk of autoimmune gastrointestinal dysmotility (AGID) as a possible cause for this patient's symptoms, as well as the fact the patient has yet to be evaluated for AGID, a full workup will be undertaken. If the antibody tests reveal a positive result the patient will then need to be treated with IVIG therapy as this is the only known treatment available at this time for AGID. Encounter Diagnosis ICD-10-CM 1. Gastroparesis K31.84 CREATINE KINASE/CK LACTATE DEHYDROGENASE PYRUVATE+LACTATE BL AMINO ACIDS, PLASMA W/ CONSULTATION CARNITINE FREE AND TOTAL, PLASMA ACETYLCHOLINE REC BINDING AB VOLTAGE GATED CA IGG VOLTAGE-GATED POTASSIUM MOYER AB GLUTAMIC AC DECARBOXYLASE AB ORGANIC ACIDS UR, QUANT W/CONSULTATION IMMUNOGLOBULIN A IMMUNOGLOBULIN G IMMUNOGLOBULIN M C-REACTIVE PROTEIN SEDIMENTATION RATE, WESTERGREN CYTOKINE PANEL 13, SERUM ESTROGEN FRACTION BL 2. Irritable bowel syndrome with both constipation and diarrhea K58.2 lubiprostone (AMITIZA) 8 mcg capsule Veronica Quiles DO 07/19/2023 documented in this encounter [facility] 08-02-2023 Note HNO ID: [id number] Author: VERONICA QUILES DO Service: ? Author Type: Physician Type: Progress Notes Filed: 08/02/2023 09:54 Note Text: GASTROPARESIS CONSULT Patient is referred by Dr. Cece Hannon for an opinion regarding GP and my final recommendations will be communicated back to the requesting physician by way of a copy of today's office notes. PRESENTING COMPLAINT AND HISTORY Naila is a 52 yr old female w/hx of CAD, depression, DVT of leg, Leiden Factor 5, hx blood tranfusion x3, DM2, seizures, hysterectomy, and lap cholecystectomy that had an abnormal gastric emptying study 04/2023 showing 21% retention at 4 hours. Gastroparesis symptoms started 1.5 years ago. DM2, diagnosed 2016, Hgb A1c - unsure of result, neuropathy in feet and legs. Denies being on any GLP-1 Reptor Agnotists for DM management. Abd pain is intermittent with certain foods. Diarrhea and constipation alternate. Failed Miralax and Dulcolax. Takes Peppermint for N/V. Failed Zofran. C/o severe early satiety, lack of appetite and stomach fullness. Diet: snacks as tolerated. Failed Reglan and Buspar. Patient is interested in learning more about EMPTIES Trial: Yes Patient is a candidate for EMPTIES Trial: Yes Gastrointestinal Symptoms Reflux/heartburn: Yes was on pantoprazole - no longer taking anything Abdominal pain/discomfort: Yes intermittent with certain foods. Weight loss: some weight loss just unsure how much. Do you have less than 3 bowel movements per week? Yes sometimes Diarrhea: yes alternates Constipation: yes can go up to 3 days; states laxatives don't work. Failed Miralax Malnutrition: unsure Gastroparesis Cardinal Symptom Index (CGSI) 1. Nausea: 5 2. Retchin 3. Vomitin 4. Stomach fullness: 4 5. Not able to finish a normal-sized meal: 5 6. Feeling excessively full after meals: 5 7. Loss of appetite: 5 8. Bloating (feeling like you need to loosen your clothes): 5 9. Stomach or belly visibly larger: 5 CGSI Score: 4.36 Scale (0-none; 1-very mild; 2-mild; 3-moderate; 4-severe; 5-very severe) MEDICATION HISTORY Promotility Drugs - Reglan (Metoclopramide): failed - Gimoti (Metoclopramide nasal): No - Motilium (Domperidone): No - Erythromycin (E-mycin): No - Propulsid (Cisapride)_: No Other - Tricyclic Antidepressants (nortriptyline - Pamelor; amitriptyline - Elavil): No - Buspirone (Buspar): Yes took in the past - Mirtazapin (Remeron): No Anti-Nausea Medications - Compazine (Prochlorperazine): No - Phenergan (Promethazine): failed - Benadryl (Diphenhydramine): No - Zofran (Ondansetron): failed - Scopace (Scopolamine Patch): No - Granisetron (Kytril or Sancuso): No - Tigan (Trimethobenzamide)_: No Constipation Medications - Bulking Agents (Metamucil,Citrucel, Fibercon): yes - Osmotic Laxatives (MOM, Polyethylene glycol (PEG), lactulose, sorbitol,MiraLax, Chronulal, Cephulac,Xylitol): failed Miralax - Stimulant Laxatives (Ex-Lax, Senokot,Correctol, Dulcolax): failed Dulcolax - Stool Softeners (Colace): failed - Chloride Channel Activator (Amitiza): No - Linzess: No - Trulance: No - Motegrity: No Pain Medications - Does the patient see a paint spray tender for chronic abdominal pain?yes for neck - Is the patient taking narcotic pain medication for chronic abdominal pain? No - Narcotic Medications: (Tramadol, Fentanyl, codeine, hydrocodone, Hydromorphone, methadone, morphine, Oxycodone) No Drug use - History or current drug use (Marijuana, Cocaine, Heroine, etc...) No Eating Disorders - Does the patient have a history of eating disorders No Psychiatric Disorders - Does the patient have a history of psychiatric disorders including PTSD: Yes If yes, please explain: PTSD, depression and anxiety Nutrition - Has the patient met with a director market research for diet recommendations with Gastroparesis? No - Jejunostomy (J-tube): _No - Gastrostomy (G-tube): No - Gastro-Jejunostomy (GJ-tube): _No - Nasojejunal (NJ-tube): _No - Nasogastric (NG-tube): _No - TPN (IV): _No - IV home hydration (IV): _No Medical Records - Has the patient had a smart capsule study completed? No - Does the patient have a history of any foregut surgery (vagotomy, hiatal hernia repair/CARLOTTA Fundoplication, Heller Myotomy, gastrectomy, gastric bypass)?No If surgery, recent UGI? No - EGD: Yes - Botox Injections: No Patient Name Naila Beltran Age [age] year old Gastroparesis Consult Test Date Completed Results Labs EGD 10/11/2019 [facility] Imp[facility]: - mild fundal gastritis, biopsies obtained. Colonoscopy 10/11/2019 [facility] Imp[facility]: - normal colonoscopy to terminal ileum, random colon biopsies obtained to r/o microscopic colitis Gastric Emptying Study 05/18/23 [facility] IMPRESSION: Findings of moderate gastroparesis (21-35% gastric retention at 4 hours). RESULT: Calculated solid meal (or solid meal equivalent) gastric retention values: * (more content not included)... [facility] 08-02-2023 Nurse Note What is the reason for your visit today? new Who is your referring physician? pcp Are you having poor oral intake? NO Have you had unintentional weight loss of 15 lbs/7 Kg in the last 3-6 months? NO Bowels: constipated Wound: n/a Temperature: No Drains: No [facility] 07-25-2023 Telephone encounter Note SPECIALTY CARE COORDINATION CHART REVIEW Contacted patient regarding upcoming appointment in the Gastroparesis Clinic. No answer. Message and call back number provided. Patient identified for Care Coordination from: gastroparesis diagnosis Last PCP office visit: Visit date not found Next OV: 08/02/2023 CHRONIC DX: Gastroparesis Records Reviewed records and summarized for upcoming appointment in the gastroparesis clinic. CARE COORDINATION OUTREACH PLAN: Contacted patient regarding upcoming appointment in the Gastroparesis Clinic. No answer. Message and call back number provided. Vu Belle RN July 25, 2023 [facility] 07-25-2023 Miscellaneous Notes SPECIALTY CARE COORDINATION CHART REVIEW Contacted patient regarding upcoming appointment in the Gastroparesis Clinic. No answer. Message and call back number provided. Patient identified for Care Coordination from: gastroparesis diagnosis Last PCP office visit: Visit date not found Next OV: 08/02/2023 CHRONIC DX: Gastroparesis Records Reviewed records and summarized for upcoming appointment in the gastroparesis clinic. CARE COORDINATION OUTREACH PLAN: Contacted patient regarding upcoming appointment in the Gastroparesis Clinic. No answer. Message and call back number provided. Vu Belle RN July 25, 2023 documented in this encounter [facility] 07-25-2023 Procedure note [facility] 06-13-2023 Note HNO ID: [id number] Author: GARDENIA GUPTA PA-C Service: ? Author Type: Physician Die Cast Technician Type: Progress Notes Filed: 06/13/2023 15:37 Note Text: DATE OF ENCOUNTER: June 13, 2023 ATTENDING PHYSICIAN: Dr. Spivey (Elements copied from Dr. Spivey's note dated June 03, 2022, have been reviewed and updated where appropriate, and all reflect current assessment and medical decision making during today's encounter, June 13, 2023) CC: Follow up HPI Naila Beltran is a 52 year old female who presents in follow up with a hypercoagulable state. - August 2008: She woke up from bed and had warm swollen left leg. [facility] diagnosed with DVT. She was negative for hereditary thrombophilias. She had a non-retractable IVC filter placed at this time. She took warfarin for a few months. 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 She was initially on 20 mg but had heavy and long menstrual periods needing an emergent hysterectomy and was then placed on 10 mg dosing. - 2017: Switched to low dose eliquis 2.5 mg BID for insurance reasons. LAC testing at this time was negative - 2019: Grafting #2 done at [facility] (Dr. Scanlon) She is on Eliquis 2.5 mg BID. She has a heart monitor per cardiology for palpitations. She denies any new clots or bleeding issues. She has vascular disease and continues to be followed and treated at [facility]. She recently had a colonoscopy and EGD with biopsies by Dr. Garcia that showed gastritis and possible irritable bowel syndrome. She is struggling with eating foods as many foods just come right back up. Had gastric emptying study which showed moderate gastroparesis. She is seeing GI. Current Outpatient Medications Medication Sig ELIQUIS 2.5 mg tab(s) take 1 tablet by mouth twice a day iv contrast (will be provided with radiology [...] in the CT contrast administration guidelines link. enteric contrast (will be provided with radiology test) For CT ABD/PEL W IVCON Routine order Administer, As Directed One Time Only, via Oral, Rectal, both Oral and Rectal, Enteric Tube, Stoma or Indwelling Catheter, Enteric Contrast as designated per enteric contrast guidelines glyBURIDE (DIABETA) 5 mg tablet take 2 tablets by mouth twice a day with meals docusate sodium (COLACE) 100 mg capsule Take 100 mg by mouth as needed. cetirizine (ZYRTEC) 10 mg tablet Take 10 mg by mouth. Fluticasone Furoate 27.5 mcg/actuation nasal spray fluticasone Fluticasone Furoate Active 1 SPRAY Intranasal Daily June 13, 2017 7:29am 06-13-2017 [facility] ([id number]) sitaGLIPtin-metFORMIN (JANUMET) 50-500 mg per tablet Take 1 tablet by mouth twice daily with meals. aspirin 81 mg chewable tablet q 24 HR. albuterol HFA (PROVENTIL HFA, VENTOLIN HFA) 90 mcg/actuation inhaler Ventolin HFA 90 mcg/actuation aerosol inhaler levETIRAcetam XR (KEPPRA XR) 500 mg 24 hr tablet Take 500 mg by mouth twice daily. busPIRone HCl 30 mg tablet take 1/3 tablet by mouth three times a day metoprolol tartrate, short acting, (LOPRESSOR) 25 mg tablet twice daily. atorvastatin (LIPITOR) 40 mg tablet Take 40 mg by mouth once daily. Comp.Stocking,Thigh,Long,X-Lrg misc Wear stocking daily pregabalin (LYRICA) 150 mg capsule Take 150 mg by mouth twice daily. Multivitamins ORAL Chew None Entered hyoscyamine SR (LEVBID) 0.375 mg 12 hr tablet Take 1 tablet by mouth twice daily. lansoprazole orally disintegrating (PREVACID) 30 mg disintegrating tablet Take 1 tablet by mouth once daily. No current facility-administered medications for this visit. ALLERGIES Allergen Reactions Aspirin Unknown Heparin Analogues Unknown Keflex [Cephalexin] Hives Penicillin G Hives PAST MEDICAL HISTORY Ischemic Coronary Artery Disease (EF 42% in 2019) follows with Dr. Christy Moreland at [facility]/[place] Peripheral Vascular Disease; stents x 2 (2008, 2011) Carotid artery disease Epilepsy on levetiracetam Obesity Diabetes Irritable Bowel Syndrome PAST SURGICAL HISTORY Vascular stents in iliac vessels IVC filter Unclear knee procedures Grafting, vascular Emergency Hysterectomy in 2011 heavy menses, unclear etiology; needed blood transfusions FAMILY HISTORY Grandfather with blood clots; from stroke at the age of 68 Mother with heart disease, diabetes, COPD Father with h (more content not included)... [facility] 06-13-2023 History of Present illness Narrative DATE OF ENCOUNTER: June 13, 2023 ATTENDING PHYSICIAN: Dr. Spivey (Elements copied from Dr. Spivey's note dated June 03, 2022, have been reviewed and updated where appropriate, and all reflect current assessment and medical decision making during today's encounter, June 13, 2023) CC: Follow up HPI Naila Beltran is a 52 year old female who presents in follow up with a hypercoagulable state. - August 2008: She woke up from bed and had warm swollen left leg. [facility] diagnosed with DVT. She was negative for hereditary thrombophilias. She had a non-retractable IVC filter placed at this time. She took warfarin for a few months. 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 She was initially on 20 mg but had heavy and long menstrual periods needing an emergent hysterectomy and was then placed on 10 mg dosing. - 2017: Switched to low dose eliquis 2.5 mg BID for insurance reasons. LAC testing at this time was negative - 2019: Grafting #2 done at [facility] (Dr. Scanlon) She is on Eliquis 2.5 mg BID. She has a heart monitor per cardiology for palpitations. She denies any new clots or bleeding issues. She has vascular disease and continues to be followed and treated at [facility]. She recently had a colonoscopy and EGD with biopsies by Dr. Garcia that showed gastritis and possible irritable bowel syndrome. She is struggling with eating foods as many foods just come right back up. Had gastric emptying study which showed moderate gastroparesis. She is seeing GI. Current Outpatient Medications Medication Sig ELIQUIS 2.5 mg tab(s) take 1 tablet by mouth twice a day iv contrast (will be provided with radiology [...] in the CT contrast administration guidelines link. enteric contrast (will be provided with radiology test) For CT ABD/PEL W IVCON Routine order Administer, As Directed One Time Only, via Oral, Rectal, both Oral and Rectal, Enteric Tube, Stoma or Indwelling Catheter, Enteric Contrast as designated per enteric contrast guidelines glyBURIDE (DIABETA) 5 mg tablet take 2 tablets by mouth twice a day with meals docusate sodium (COLACE) 100 mg capsule Take 100 mg by mouth as needed. cetirizine (ZYRTEC) 10 mg tablet Take 10 mg by mouth. Fluticasone Furoate 27.5 mcg/actuation nasal spray fluticasone Fluticasone Furoate Active 1 SPRAY Intranasal Daily June 13, 2017 7:29am 06-13-2017 [facility] ([id number]) sitaGLIPtin-metFORMIN (JANUMET) 50-500 mg per tablet Take 1 tablet by mouth twice daily with meals. aspirin 81 mg chewable tablet q 24 HR. albuterol HFA (PROVENTIL HFA, VENTOLIN HFA) 90 mcg/actuation inhaler Ventolin HFA 90 mcg/actuation aerosol inhaler levETIRAcetam XR (KEPPRA XR) 500 mg 24 hr tablet Take 500 mg by mouth twice daily. busPIRone HCl 30 mg tablet take 1/3 tablet by mouth three times a day metoprolol tartrate, short acting, (LOPRESSOR) 25 mg tablet twice daily. atorvastatin (LIPITOR) 40 mg tablet Take 40 mg by mouth once daily. Comp.Stocking,Thigh,Long,X-Lrg misc Wear stocking daily pregabalin (LYRICA) 150 mg capsule Take 150 mg by mouth twice daily. Multivitamins ORAL Chew None Entered hyoscyamine SR (LEVBID) 0.375 mg 12 hr tablet Take 1 tablet by mouth twice daily. lansoprazole orally disintegrating (PREVACID) 30 mg disintegrating tablet Take 1 tablet by mouth once daily. No current facility-administered medications for this visit. ALLERGIES Allergen Reactions Aspirin Unknown Heparin Analogues Unknown Keflex [Cephalexin] Hives Penicillin G Hives PAST MEDICAL HISTORY Ischemic Coronary Artery Disease (EF 42% in 2019) follows with Dr. 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 CARDIOVASCULAR: Negative for chest pain, leg swelling or palpitations. GI: Negative for abdominal discomfort, blood in stools or black stools or change in bowel habits +vomiting MUSCULOSKELETAL: Negative for joint pain or swelling, back pain or muscle pain. SKIN: Negative for lesions, rash, and itching. PSYCH: Negative for sleep disturbance, mood disorder and recent psychosocial stressors. HEMATOLOGY/LYMPHOLOGY: Negative for prolonged bleeding, bruising easily or swollen nodes. NEURO: No history of headaches, syncope, paralysis, seizures or tremors All other reviewed and negative other than HPI. PHYSICAL EXAM: BP 146/78 Pulse 65 Temp 36.4 C (97.5 F) (Temporal) Resp 16 Ht 165.1 cm (5' 5 ) Wt 115.8 kg (255 lb 4.7 oz) LMP 04/01/2011 SpO2 97% BMI 42.48 kg/m General: Alert and oriented, no distress, pleasant and cooperative. Heart: Regular, normal S1 and S2, no murmurs, rubs, or gallops Lungs: Clear to auscultation bilaterally Abdomen: Benign Extremities: Feet/ankles without edema, posterior tibial pulses full and symmetrical Hemoglobin (g/dL) Date Value 06/13/2023 11.7 02/06/2020 12.4 Hematocrit (%) Date Value 06/13/2023 36.7 02/06/2020 39.4 WBC (k/uL) Date Value 06/13/2023 10.98 02/06/2020 7.58 Platelet Count (k/uL) Date Value 06/13/2023 236 02/06/2020 263 ASSESSMENT/PLAN: 1. Factor V Leiden: Recurrent blood clots since 2008; prior therapy with warfarin, Arixtra and xarelto Xarelto changed to eliquis for insurance reasons Continue eliquis 2.5 mg BID for now --refill provided 2. Peripheral Vascular Disease Follows with [facility] (Dr. Scanlon) 3. Ischemic Vascular Disease Follows at [place] (Dr. Christy Moreland) 4. Abdominal symptoms. Follows Dr. Garcia at [facility] , now with gastroparesis See back in 1 year as planned and continue follow-up with GI as scheduled. Gardenia Gupta PA-C CC: Dr. Shiva Garcia, DO Nguyen Cox MD I spent a total of 20 minutes on the date of the service which included preparing to see the patient, [id number] patient care, completing clinical documentation, performing a medically appropriate examination, counseling and educating the patient/family/caregiver, ordering medications, tests, or procedures, independently interpreting results (not separately reported), and communicating results to the patient/family/caregiver . documented in this encounter [facility] 05-18-2023 History of Present illness Narrative RADIOLOGY SERVICE PROGRESS NOTE SERVICE DATE: 05/18/2023 SERVICE TIME: 10:11 AM PATIENT IDENTITY VERIFICATION COMPLETED USING TWO (2) STANDARD IDENTIFIERS: Name and Date of confirmed by patient verbally FALL SCREENING: Has the patient had 2 falls in the last year or 1 fall with injury or currently using an Ambulatory Assistive Device (Walker, Cane, Wheelchair, Crutches, etc.)? No PATIENT GENDER DATA: .female : No ALLERGIES: Reviewed and unchanged MEDICATIONS REVIEWED: Not applicable PATIENT RELEVANT IMPLANT DATA REVIEWED: Not Applicable PATIENT PRESENTS WITH AN IMPLANTABLE OR ATTACHED MANAGER CREDIT COLLECTIONS: No CREATININE: Creatinine Date Value Ref Range Status 02/06/2020 0.86 0.58 - 0.96 mg/dL Final eGFR-All Other Races Date Value Ref Range Status 02/06/2020 >60 . Final Comment: eGFR (Estimated GFR) Units of measure: mL/min/1.73 meters squared eGFR is derived from the reexpressed MDRD Study equation using the following parameters: serum creatinine, age, gender and race. The creatinine assay has been calibrated to be traceable to IDMS. An eGFR <60 mL/min/1.73m2 for >3 months is consistent with chronic kidney disease. Refer to KDOQI guidelines for clinical interpretation. In patients with unstable renal function, e.g. those with acute kidney injury, the eGFR may not accurately reflect actual GFR. eGFR- Date Value Ref Range Status 02/06/2020 >60 Final P.O.C.T. RESULTS: POC done: Yes, See Lab Tab May 18, [address] PERFORMED: No IV SITE: NM only - not applicable, oral or physician administered agents given to patient POST EXAM PIV STATUS: Not applicable PROCEDURE TYPE: NM GET: 1.0 mCi Tc99m SULFUR COLLOID was administered orally via 4 ounces of Egg Beaters,1 1/4 pieces of toast, 1 ounce of jelly with 8 ounces of water orallyADMINISTRATION TIME: 1008 PATIENT DISCHARGED TO: Ambulatory patient, left NE department area. A Diagnostic radioactive procedure has taken place, with no further precautions necessary other than routine body substance precautions. More information regarding radiation safety can be found using this link: [email or web address] SIGNATURE: RT Ruben(R) PATIENT NAME: Naila Beltran DATE: May 18, 2023 TIME: 10:11 AM PAGER/CONTACT #: documented in this encounter [facility] 05-17-2023 Miscellaneous Notes No answer so left voice mail. Asked her to arrive by 9:45. Explained test, length, prep and restrictions. Left department number in case she has questions. documented in this encounter [facility] 03-16-2023 Note [place] [facility] - [facility] Subjective Naila Beltran is a 52 y.o. year old female patient being seen via telemedicine for follow up echo, labs, and event monitor. Still symptomatic but denies bleeding on Eliquis. Patient Active Problem List Diagnosis Allergic rhinitis Aneurysm of thoracic aorta (CMS/HCC) Back pain Anticoagulated Anxiety Arthralgia of upper arm Blood coagulation disorder (CMS/HCC) Morbid obesity (CMS/HCC) Coronary artery disease of [place] artery of [place] heart with stable angina pectoris (CMS/HCC) Classical migraine with intractable migraine Current use of anticoagulant therapy Depressive disorder Emotional instability (CMS/HCC) Gallstone FERNY (generalized anxiety disorder) Fatty liver Fatigue Factor V Leiden (CMS/HCC) Generalized convulsive epilepsy (CMS/HCC) GERD (gastroesophageal reflux disease) Heartburn Hypercoagulable state (CMS/HCC) History of COVID-19 History of cardiovascular disorder Hereditary coagulation factor deficiency (CMS/HCC) Kidney stone Iron deficiency anemia Hypoalphalipoproteinemia Elevated LDL cholesterol level May-Thurner syndrome Migraine 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rder (CMS/HCC) Mixed hyperlipidemia HLD (hyperlipidemia) Headache Narrowing of intervertebral disc space Multiple thyroid nodules Neuropathy Nevus anemicus Cerebrovascular disease Disorder of intervertebral disc of cervical spine Pain of left lower extremity Partial thickness rotator cuff tear Personal history of DVT (deep vein thrombosis) Postoperative infection Presbyopia Simple febrile seizure (CMS/HCC) Seizures (CMS/HCC) Skin sensation disturbance Dyspnea on exertion Thyroid adenoma Type 2 diabetes mellitus without complication, without long-term current use of insulin (CMS/HCC) Cobalamin deficiency Vitamin D insufficiency No family history on file. HPI Ms. Beltran is seen today via telemedicine. She is a 52 yo woman with prior history of ascending aortic aneurysm, fem-fem vein bypass, iliac vein compression syndrome, HTN, factor V leiden mutation. 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 Garcia with GI - EGD at [facility] showed stomach was inflamed - colonoscopy showed polyps -Left leg with chronic DVT - See's Dr. Foster for vascular at [facility] - she last had an US last spring -Hx COVID She is seen today to follow up on her symptoms and review the event monitor that was ordered at last visit due to palpitations, the cardiopulmonary exercise test and echocardiogram. She continues to have dyspnea on exertion and atypical chest pain. She continues to have palpitations on and off. Review of Systems Cardiovascular: Positive for chest pain, dyspnea on exertion, leg swelling and palpitations. Neurological: Positive for light-headedness. All other systems reviewed and are negative. Objective Visit Vitals Ht 1.702 m (5' 7 ) BMI 38.84 kg/m??? BSA 2.3 m??? Physical Exam Pulmonary: Effort: Pulmonary effort is normal. Neurological: Mental Status: She is alert and oriented to person, place, and time. Psychiatric: Mood and Affect: Mood normal. Thought Content: Thought content normal. Judgment: Judgment normal. Allergies Allergies Allergen Reactions Heparin Thickens blood, raises blood pressure Cephalexin Hives and Other Penicillins Hives and Other Medications Current Outpatient Medications: albuterol 90 mcg/actuation inhaler, Inhale 1 puff as needed by inhalation route for 25 days., Disp: , Rfl: apixaban (Eliquis) 2.5 mg tablet, Take 1 tablet by mouth in the morning and at bedtime., Disp: , Rfl: aspirin 81 mg EC tablet, Take 81 mg by mouth in the morning., Disp: , Rfl: atorvastatin (Lipitor) 40 mg tablet, Take 1 tablet by mouth in the morning., Disp: , Rfl: cetirizine (ZyrTEC) 10 mg tablet, Take 10 mg by mouth in the morning., Disp: , Rfl: glyBURIDE (Diabeta) 5 mg tablet, take 2 tablets by mouth twice a day with meals, Disp: , Rfl: Janumet 50-500 mg tablet, Take 1 tablet by mouth in the morning and at bedtime., Disp: , Rfl: levETIRAcetam (Keppra) 500 mg tablet, Take 1 tablet twice a day by oral route., Disp: , Rfl: metoclopramide (Reglan) 10 mg tablet, take 1 tablet by mouth three times a day before meals, Disp: , Rfl: busPIRone (Buspar) 10 mg tablet, Take 10 mg by mouth in the morning, at noon, and at bedtime., Disp: , Rfl: famotidine (Pepcid) 40 mg tablet, Take 1 tablet by mouth in the morning and at bedtime., Disp: , Rfl: metoprolol tartrate (Lopressor) 50 mg tablet, Take 1 tablet (50 mg) by mouth in the morning and at bedtime., Disp: 180 tablet, Rfl: 3 Recent Labs No visits with results within 6 Month(s) from this visit. Latest known visit with results is: Hospital Outpatient Visit on 11/18/2021 Component Date Value Target HR 11/18/2021 143 Imaging and other tests Echocard (more content not included)... [facility] 01-30-2023 Evaluation note Encounter Date Diagnosis Assessment Notes Jan, GERD (gastroesophageal reflux disease) (ICD-10 - K21.9) Jan, Gastroparesis (ICD-10 - K31.84) [facility] 09-13-2023 Evaluation note* Encounter Date Diagnosis Assessment Notes Treatment Notes Treatment Clinical Notes Oct, Tear of right hamstring (ICD-10 - S76.311A) Naila presents with right hamstring tear. At this juncture we have discussed the findings and diagnosis as well as personally reviewed appropriate imaging and performed interpretation of related testing and examination with the patient in office today. Prior medical notes from [facility] and history have been reviewed. At this time I would recommend conservative treatment. Anti-inflammatories along with an order for physical therapy given. Home exercise program given as well. We will plan for follow-up 6 weeks for recheck. The patient has been involved in our cooperative treatment plan and agrees to move forward with treatment at this time. Patient appears to have experienced a hamstring tear. Instructed on motion and strengthening exercises. Formal therapy order provided. Oct, Other See orders for this visit as documented in the electronic medical record. [facility] 04-07-2023 History of Present illness Narrative* Checo Spivey MD - 06/03/2022 2:44 PM EDT DATE OF ENCOUNTER: June 03, 2022 ATTENDING PHYSICIAN: Dr. Spivey CC: Follow up HPI Naila Beltran is a 51 year old female who presents in follow up with a hypercoagulable state. - August 2008: She woke up from bed and had warm swollen left leg. [facility] diagnosed with DVT. She was negative for hereditary thrombophilias. She had a non- retractable IVC filter placed at this time. Shetook warfarin for a few months. She also was evaluated by vascular surgery for an unclear vascular disorder - 2009: Switched to arixtra given recurrent clots ( warfarin resistance ) in the left leg which shetook for 6 months - 2011: Grafting done at [facility] for recurrent clots; she was on xarelto at this time. She was initially on 20 mg but had heavy and long menstrual periods needing an emergent hysterectomy and was then placed on 10 mg dosing. - 2018: Switched to low dose eliquis 2.5 mg BID for insurance reasons. LAC testing at this time wasnegative - 2019: Grafting #2 done at [facility] (Dr. Scanlon) She is on Eliquis 2.5 mg BID. She has vascular disease and continues to be followed and treated at [facility]. She recently had a colonoscopy and EGD with biopsies by Dr. Garcia that showed gastritis and possible irritable bowel syndrome. No new complaints Current Outpatient Medications Medication Sig iv contrast (will be provided with radiology test) CT ABD/PEL -Inject, intravenously, once for 1 dose.No IV access, insert saline lock prior to the beginning of sedation, infusion, injection of imaging exam. Discontinue saline lock post exam. If Pt. has a central line or IVAD, may access for administration according to line specific nursing protocol. Once exam is complete flush line and de-accessaccording to line specific nursing protocol in the CT contrast administration guidelines link. enteric contrast (will be provided with radiology test) For CT ABD/PEL W IVCON Routine order Administer, As Directed One Time Only, via Oral, Rectal, both Oral and Rectal, Enteric Tube, Stoma or Indwelling Catheter, Enteric Contrast as designated per enteric contrast guidelines lansoprazole orally disintegrating (PREVACID) 30 mg disintegrating tablet Take 1 tablet by mouth once daily. ondansetron (ZOFRAN) 4 mg tablet 1 TAB EVERY 6 HRS NEEDED glyBURIDE (DIABETA) 5 mg tablet take 2 tablets by mouth twice a day with meals ELIQUIS 2.5 mg tab tab(s) Take 1 tablet by mouth twice daily. docusate sodium (COLACE) 100 mg capsule Take 100 mg by mouth as needed. cetirizine (ZYRTEC) 10 mg tablet Take 10 mg by mouth. Fluticasone Furoate 27.5 mcg/actuation nasal spray fluticasone Fluticasone Furoate Active 1 SPRAY Intranasal Daily June 13, 2017 7:29am 06-13-2017 [facility] ([id number]) fluticasone-vilanterol (BREO ELLIPTA) 200-25 mcg/dose inhaler inhale 1 puff by mouth and INTO THE LUNGS once daily RINSE MOUTH AND SPIT AFTER EACH USE sertraline (ZOLOFT) 100 mg tablet Take 100 mg by mouth once daily. sitaGLIPtin-metFORMIN (JANUMET) 50-500 mg per tablet Take 1 tablet by mouth twice daily with meals. aspirin 81 mg chewable tablet q 24 HR. albuterol HFA (PROVENTIL HFA, VENTOLIN HFA) 90 mcg/actuation inhaler Ventolin HFA 90 mcg/actuation aerosol inhaler levETIRAcetam XR (KEPPRA XR) 500 mg 24 hr tablet Take 500 mg by mouth twice daily. busPIRone HCl 30 mg tablet take 1/3 tablet by mouth three times a day metoprolol tartrate, short acting, (LOPRESSOR) 25 mg tablet twice daily. atorvastatin (LIPITOR) 40 mg tablet Take 40 mg by mouth once daily. Comp.Stocking,Thigh,Long,X-Lrg misc Wear stocking daily pregabalin (LYRICA) 150 mg capsule Take 150 mg by mouth twice daily. Multivitamins ORAL Chew None Entered hyoscyamine SR (LEVBID) 0.375 mg 12 hr tablet Take 1 tablet by mouth twice daily. No current facility-administered medications for this visit. ALLERGIES Allergen Reactions Aspirin Unknown Heparin Analogues Unknown Keflex [Cephalexin] Hives Penicillin G Hives PAST MEDICAL HISTORY Ischemic Coronary Artery Disease (EF 42% in 2019) follows with Dr. 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 CARDIOVASCULAR: Negative for chest pain, leg swelling or palpitations. GI: Negative for abdominal discomfort, blood in stools or black stools or change in bowel habits MUSCULOSKELETAL: Negative for joint pain or swelling, back pain or muscle pain. SKIN: Negative for lesions, rash, and itching. PSYCH: Negative for sleep disturbance, mood disorder and recent psychosocial stressors. HEMATOLOGY/LYMPHOLOGY: Negative for prolonged bleeding, bruising easily or swollen nodes. NEURO: No history of headaches, syncope, paralysis, seizures or tremors All other reviewed and negative other than HPI. PHYSICAL EXAM: BP 137/76 Pulse 62 Temp 36.3 C (97.3 F) (Temporal) Resp 16 Ht 165.1 cm (5' 5 ) Wt 120.5 kg (265 lb 9.6 oz) LMP 04/01/2011 SpO2 98% BMI 44.20 kg/m General Appearance: alert and oriented, appearing in no acute distress Skin: skin color, texture, turgor normal, no suspicious rashes or lesions. Head: normal. Eyes: Anicteric sclera. Pupils are equally round. Extraocular movements are intact. . Ears: external ears normal Neck: Supple, no adenopathy; thyroid symmetric, normal size, no bruits. Back:no pain with ambulation Lungs: good air exchange overall Heart: RRR Abdomen: No obvious evidence of rebound tenderness or guarding Extremities: Chronic venous stasis and dilated veins on bilateral lower extremities Musculoskeletal: Spine range of motion normal. Muscular strength intact. Peripheral Pulses: Normal. Neurologic: Gait normal. No gross cerebellar defects Psychiatric: the patient has an appropriate affect Hemoglobin (g/dL) Date Value 02/06/2020 12.4 Hematocrit (%) Date Value 02/06/2020 39.4 WBC (k/uL) Date Value 02/06/2020 7.58 Platelet Count (k/uL) Date Value 02/06/2020 263 ASSESSMENT/PLAN: 1. Factor V Leiden: Recurrent blood clots since 2008; prior therapy with warfarin, Arixtra and xarelto Xarelto changed to eliquis for insurance reasons Continue eliquis 2.5 mg BID for now; 2. Peripheral Vascular Disease Follows with [facility] (Dr. Scanlon) 3. Ischemic Vascular Disease Follows at [place] (Dr. Christy Moreland) 4. Abdominal symptoms. Follows Dr. Garcia at [facility] See back in 1 year as planned and continue follow-up with GI as scheduled. CC: Dr. Shiva Garcia, DO Nguyen Cox MD [facility] History of Present illness Narrative* Shiva Garcia Jr., - 03/25/2022 1:30 PM EST Images from the original note were not included. Patient presents with: Irritable Bowel Syndrome HPI: Naila Beltran, 51 year old female, presents in the office today for abd pain, IBS. Patient is known to me with diabetic gastroparesis, IBS, GERD. Over the past few weeks she has increasing abd pain. Pain is generalized, not related to meals or bowel movements. Pain can be severe at times. Poorrelief with dicyclomine. She has increased GERD and along with N/V. Metoclopramide, Carafate, and pantoprazole have failed to provide any significant benefit. Cholecystectomy done 2 yrs ago. History of LLE DVT. Last EGD and colonoscopy were [address] scan was 3 yrs ago. Negative family history. Past GI workup 03/18/20 lap chol was done due to HIDA scan showing nonvisualization of the gallbladder. Biopsy as follows: Gallbladder, cholecystectomy - Cholelithiasis and reactive lymph node 10/11/19 EGD/colonoscopy was done for GERD, atypical chest pain and diarrhea Mild fundal gastritis Normal colonoscopy to terminal ileum, random biopsies taken Biopsies as follows: Stomach-mild active gastritis with dense lymphocytic cell infiltrate Negative for intestinal metaplasis and dysplasia Negative Hpylor Random biopsies-fragments of edematous colon mucosa without significant pathologic findings 05/17/18 CT images of the abdomen/pelvis were obtained with IV contrast.clotting disorder left thigh pain diarrhea fatigue weakness in legs venal bypass in past The liver and spleen are normal in size and overall attenuation with no focal lesion identified. The gallbladder, adrenals and pancreas appear unremarkable. The kidneys concentrate contrast satisfactorily with a subcentimeter cyst suspected in the right lower pole. The stomach, small bowel, appendix and colon are unremarkable. The uterus is not identified. The bladder and right adnexa appear unremarkable. The left adnexa appears enlarged, contains cysts and measures 9.4 x 4.0 5.3 cm. The aorta is unremarkable. No retroperitoneal adenopathy or hematoma. A filter is present in the IVC. A stent is present in the left common iliac vein. The left iliac vein appears narrowed compared to the right. Collateral venous channels are appreciated in the region of the left groin and pelvic sidewall. No free intraperitoneal air or free air or free fluid. The study viewed at bone window appears unremarkable Last labs as follows: Component 01/04/2022 04/06/2021 05/07/2019 Ferritin -- -- -- Load older lab results Iron 40 Low 65 68 Load older lab results Tibc-calc only do not order 288 293 319 Load older lab results Iron Saturation 14 Low 22 21 Component 01/04/2022 04/06/2021 01/26/2021 06/16/2020 05/07/2019 Sodium 138 137 133 Low 136 140 Load older lab results Potassium, Bld 4.0 3.7 3.4 Low 3.7 3.7 Load older lab results Chloride 105 103 99 101 104 Load older lab results CO2 22 23 24 27 27 Load older lab results Anion gap 11 11 10 8 9 Load older lab results BUN 14 11 16 10 10 Load older lab results Creatinine 0.77 0.78 1.01 High 0.80 0.74 Load older lab results Glucose 151 High 237 High 224 High 232 High 110 High Load older lab results Calcium 9.0 9.4 9.2 8.9 9.0 Load older lab results Total Protein 7.5 7.5 -- 7.6 7.5 Load older lab results Albumin 4.0 4.1 -- 4.1 4.2 Load older lab results Alkaline Phosphatase 94 85 -- 85 84 Load older lab results AST 32 25 -- 19 13 Load older lab results ALT 40 High 31 -- 23 19 Load older lab results Total bilirubin 0.4 0.6 -- 0.4 0.4 Load older lab results GFR MDRD Non Af Amer -- >60 58 Low >60 >60 Load older lab results GFR MDRD Af Amer -- >60 >60 >60 >60 Load older lab results eGFR (CKD-EPI)non-race dependent >90 -- -- Component 01/04/2022 04/06/2021 01/26/2021 06/16/2020 05/07/2019 White Blood Cells 8.7 7.1 7.9 7.0 9.2 Load older lab results RBC count 4.11 4.13 4.82 4.18 4.19 Load older lab results Hemoglobin 12.1 12.0 14.2 12.3 12.4 Load older lab results Hematocrit 36.6 35.9 42.9 36.8 37.0 Load older lab results MCV 89 87 89 88 88 Load older lab results MCH 29.4 29.0 29.4 29.3 29.7 Load older lab results MCHC 33.1 33.3 33.0 33.3 33.7 Load older lab results RDW 15.3 High 14.4 14.4 14.8 14.4 Load older lab results Platelets 272 257 328 203 272 Load older lab results MPV 8.1 7.9 8.1 PAST MEDICAL HISTORY Diagnosis Date Coronary artery disease involving [place] coronary artery of [place] heart without angina pectoris 02/06/2020 Depression DVT of leg (deep venous thrombosis) ([facility]) History of blood transfusion x 3- no reactions History of COVID-19 03/04/2020 Seizures ([facility]) Type 2 diabetes mellitus without complication, without long-term current use of insulin ([facility]) 02/06/2020 PAST SURGICAL HISTORY Procedure Laterality Date HYSTERECTOMY HX LAPAROSCOPIC CHOLECYSTECTOMY 03/16/2020 PAST SURGICAL HISTORY OF left leg x 6 to remove blood clots PAST SURGICAL HISTORY OF jugular vein to remove blood clots PAST SURGICAL HISTORY OF vein bypass x 2 PAST SURGICAL HISTORY OF bladder/urethra surgery as Current Outpatient Medications on File Prior to Visit Medication Sig colestipol (COLESTID) 1 gram tablet Take 2 g by mouth. glyBURIDE (DIABETA) 5 mg tablet take 2 tablets by mouth twice a day with meals ELIQUIS 2.5 mg tab tab(s) Take 1 tablet by mouth twice daily. ZENPEP 40,000-126,000- 168,000 unit cpDR take 1 capsule by mouth three times a day with meals docusate sodium (COL-RITE) 100 mg capsule Take 100 mg by mouth as needed. cetirizine (ZYRTEC) 10 mg tablet Take 10 mg by mouth. dicyclomine (BENTYL) 20 mg tablet Take 20 mg by mouth twice daily. 2 tabs in the AM and 2 tabs in the PM Fluticasone Furoate 27.5 mcg/actuation nasal spray fluticasone Fluticasone Furoate Active 1 SPRAY Intranasal Daily June 13, 2017 7:29am 06-13-2017 [facility] ([id number]) fluticasone-vilanterol (BREO ELLIPTA) 200-25 mcg/dose inhaler inhale 1 puff by mouth and INTO THE LUNGS once daily RINSE MOUTH AND SPIT AFTER EACH USE pantoprazole DR (PROTONIX) 40 mg tablet Take 40 mg by mouth. sertraline (ZOLOFT) 100 mg tablet Take 100 mg by mouth once daily. sitaGLIPtin-metFORMIN (JANUMET) 50-500 mg per tablet Take 1 tablet by mouth twice daily with meals. aspirin 81 mg chewable tablet q 24 HR. albuterol HFA (VENTOLIN HFA) 90 mcg/actuation inhaler Ventolin HFA 90 mcg/actuation aerosol inhaler levETIRAcetam XR (KEPPRA XR) 500 mg 24 hr tablet Take 500 mg by mouth twice daily. busPIRone HCl 30 mg tablet take 1/3 tablet by mouth three times a day metoprolol tartrate, short acting, (LOPRESSOR) 25 mg tablet twice daily. atorvastatin (LIPITOR) 40 mg tablet Take 40 mg by mouth once daily. Comp.Stocking,Thigh,Long,X-Lrg misc Wear stocking daily pregabalin (LYRICA) 150 mg capsule Take 150 mg by mouth twice daily. Multivitamins ORAL Chew None Entered No current facility-administered medications on file prior to visit. Allergies: Aspirin Unknown Heparin Analogues Unknown Keflex [Cephalexin] Hives Penicillin G Hives Review of Systems Constitutional: Negative for chills, fatigue and fever. HENT: Negative for hearing loss, nosebleeds, tinnitus and trouble swallowing. Eyes: Negative for visual disturbance. Respiratory: Negative for cough, shortness of breath and wheezing. Cardiovascular: Negative for chest pain and palpitations. Gastrointestinal: Positive for abdominal pain, constipation, nausea and vomiting. Negative for abdominal distention, blood in stool and diarrhea. Endocrine: Negative for polyphagia. Genitourinary: Negative for dysuria, frequency and hematuria. Musculoskeletal: Negative for arthralgias and joint swelling. Skin: Negative for pallor and rash. Neurological: Negative for dizziness, tremors, seizures, syncope and headaches. Hematological: Does not bruise/bleed easily. BP 131/92 Pulse 80 Ht 165.1 cm (5' 5 ) Wt 120.7 kg (266 lb) LMP 04/01/2011 SpO2 95% BMI44.26 kg/m Physical Exam Constitutional: General: She is not in acute distress. HENT: Mouth/Throat: Pharynx: Oropharynx is clear. Eyes: Conjunctiva/sclera: Conjunctivae normal. Cardiovascular: Rate and Rhythm: Normal rate and regular rhythm. Pulmonary: Effort: Pulmonary effort is normal. Breath sounds: Normal breath sounds. Abdominal: General: Bowel sounds are normal. There is no distension. Palpations: Abdomen is soft. Tenderness: There is abdominal tenderness. There is no guarding or rebound. Musculoskeletal: General: No swelling. Skin: General: Skin is warm and dry. Coloration: Skin is not jaundiced. Neurological: Mental Status: She is alert. Mental status is at baseline. ASSESSMENT/PLAN: 51 y/o female with generalized abd pain, gastroparesis, GERD, IBS. Etiology for abd pain is not entirely clear. Evaluate further with CT scan. Change dicyclomine to Levbid for abd pain and IBS. Startlansoprazole and Zofran for GERD and gastroparesis. Stop metoclopramide and colestipol. Obtain records from [facility]. 1. Generalized abdominal pain - ICD9: 789.07, ICD10: R10.84 (primary diagnosis) - CT ABD/PEL W IVCON - HYOSCYAMINE ER 0.375 MG TABLET,EXTENDED RELEASE,12 HR - CREATININE BLD 2. Gastroparesis due to DM (HCC) - ICD9: 250.60, 536.3, ICD10: E11.43, K31.84 - ONDANSETRON HCL 4 MG TABLET - stop metoclopramide 3. Gastroesophageal reflux disease with esophagitis without hemorrhage - ICD9: 530.81, 530.10, ICD10: K21.00 - LANSOPRAZOLE 30 MG DELAYED RELEASE,DISINTEGRATING TABLET 4. Irritable bowel syndrome with both constipation and diarrhea - ICD9: 564.1, ICD10: K58.2 - change dicyclomine to Levbid Shiva Garcia Jr. [facility]* Patient Instructions* Shiva Garcia Jr., DO - 03/25/2022 1:[address] scan Start Levbid, lansoprazole, and Zofran Stop Reglan (metoclopramide), colestipol, and dicyclomine [facility] Evaluation + Plan note Future Scheduled Tests Radiology* US LE Venous Duplex Bilateral 12/02/21 [facility]08-02-2022 Evaluation note* Encounter Date Diagnosis Assessment Notes Treatment Notes Treatment Clinical Notes Sep, Irritable bowel syndrome with diarrhea (ICD-10 - K58.0) [facility] Other 04-25-2022 Evaluation note* Encounter Date Diagnosis Assessment Notes Treatment Notes Treatment Clinical Notes May, Diarrhea (ICD-10 - R19.7) May, Abdominal pain (ICD-10 - R10.9) [facility] Other 04-19-2022 Evaluation note* Encounter Date Diagnosis Assessment Notes Treatment Notes Treatment Clinical Notes May, Irritable bowel syndrome with diarrhea (ICD-10 - K58.0) [facility] Other 04-07-2022 Evaluation note* Encounter Date Diagnosis Assessment Notes Treatment Notes Treatment Clinical Notes May, GERD (gastroesophageal reflux disease) (ICD-10 - K21.9) [facility] Other 03-31-2022 Evaluation note* Encounter Date Diagnosis Assessment Notes Treatment Notes Treatment Clinical Notes Apr, Abdominal pain (ICD-10 - R10.9) Apr, Irritable bowel syndrome with diarrhea (ICD-10 - K58.0) Apr, GERD (gastroesophageal reflux disease) (ICD-10 - K21.9) STOP CARAFATE AND PANTOPRAZOLE PT TO REPORT PROGRESS [facility] Other 03-31-2022 History of Present illness Narrative* Gardenia Gupta PA-C - 05/27/2021 10:00 AM EDT DATE OF ENCOUNTER: May 27, 2021 ATTENDING PHYSICIAN: Dr. Spivey (Elements copied from Dr. Spivey's note dated December 31, 2019, have been reviewed and updated where appropriate, and all reflect current assessment and medical decision making during today's encounter, May 27, 2021) CC: Follow up HPI Naila Beltran is a 49 year old female who presents in follow up with a hypercoagulable state. - August 2008: She woke up from bed and had warm swollen left leg. [facility] diagnosed with DVT. She was negative for hereditary thrombophilias. She had a non- retractable IVC filter placed at this time. Shetook warfarin for a few months. She also was evaluated by vascular surgery for an unclear vascular disorder - 2009: Switched to arixtra given recurrent clots ( warfarin resistance ) in the left leg which shetook for 6 months - 2011: Grafting done at [facility] for recurrent clots; she was on xarelto at this time. She was initially on 20 mg but had heavy and long menstrual periods needing an emergent hysterectomy and was then placed on 10 mg dosing. - 2018: Switched to low dose eliquis 2.5 mg BID for insurance reasons. LAC testing at this time wasnegative - 2019: Grafting #2 done at [facility] (Dr. Scanlon) The patient's last visit here was December 2019. Since that times, she had a cholecystectomy in March 2020. She has also continues to see Dr. Garcia for her ongoing abdominal discomfort and is on colestipol and protonix. She is awaiting a referral to gynecology as well for her lower pelvic pain. She continues to follow with her [employer] for her diabetes and has had some of her medications adjusted due to a high Hgb A1C. She does continue to see vascular surgery yearly as well. She denies any new issues with clotting or bleeding and remains on Eliquis 2.5 mg BID without any complaints. Current Outpatient Medications Medication Sig colestipol (COLESTID) 1 gram tablet Take 2 g by mouth. ELIQUIS 2.5 mg tab tab(s) take 1 tablet by mouth twice a day ZENPEP 40,000-126,000- 168,000 unit cpDR take 1 capsule by mouth three times a day with meals docusate sodium (COL-RITE) 100 mg capsule Take 100 mg by mouth as needed. cetirizine (ZYRTEC) 10 mg tablet Take 10 mg by mouth. dicyclomine (BENTYL) 20 mg tablet Take 20 mg by mouth twice daily. 2 tabs in the AM and 2 tabs in the PM Fluticasone Furoate 27.5 mcg/actuation nasal spray fluticasone Fluticasone Furoate Active 1 SPRAY Intranasal Daily June 13, 2017 7:29am 06-13-2017 [facility] ([id number]) fluticasone-vilanterol (BREO ELLIPTA) 200-25 mcg/dose inhaler inhale 1 puff by mouth and INTO THE LUNGS once daily RINSE MOUTH AND SPIT AFTER EACH USE pantoprazole DR (PROTONIX) 40 mg tablet Take 40 mg by mouth. sertraline (ZOLOFT) 100 mg tablet Take 100 mg by mouth once daily. sitaGLIPtin-metFORMIN (JANUMET) 50-500 mg per tablet Take 1 tablet by mouth twice daily with meals. aspirin 81 mg chewable tablet q 24 HR. albuterol HFA (VENTOLIN HFA) 90 mcg/actuation inhaler Ventolin HFA 90 mcg/actuation aerosol inhaler levETIRAcetam XR (KEPPRA XR) 500 mg 24 hr tablet Take 500 mg by mouth twice daily. busPIRone HCl 30 mg tablet take 1/3 tablet by mouth three times a day metoprolol tartrate, short acting, (LOPRESSOR) 25 mg tablet twice daily. atorvastatin (LIPITOR) 40 mg tablet Take 40 mg by mouth once daily. Comp.Stocking,Thigh,Long,X-Lrg misc Wear stocking daily pregabalin (LYRICA) 150 mg capsule Take 150 mg by mouth twice daily. Multivitamins ORAL Chew None Entered glyBURIDE (DIABETA) 5 mg tablet take 2 tablets by mouth twice a day with meals No current facility-administered medications for this visit. ALLERGIES Allergen Reactions Aspirin Unknown Heparin Analogues Unknown Keflex [Cephalexin] Hives Penicillin G Hives PAST MEDICAL HISTORY Ischemic Coronary Artery Disease (EF 42% in 2019) follows with Dr. 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 CARDIOVASCULAR: Negative for chest pain, leg swelling or palpitations. GI: +chronic lower abdominal pain MUSCULOSKELETAL: Negative for joint pain or swelling, back pain or muscle pain. SKIN: Negative for lesions, rash, and itching. PSYCH: Negative for sleep disturbance, mood disorder and recent psychosocial stressors. HEMATOLOGY/LYMPHOLOGY: Negative for prolonged bleeding, bruising easily or swollen nodes. NEURO: No history of headaches, syncope, paralysis, seizures or tremors All other reviewed and negative other than HPI. PHYSICAL EXAM: BP 145/79 Pulse 66 Temp 36.7 C (98.1 F) (Temporal) Resp 16 Ht 167.6 cm (5' 5.98 ) Wt 115.8 kg (255 lb 3.2 oz) LMP 04/01/2011 SpO2 96% BMI 41.21 kg/m PHYSICAL EXAMINATION General: Alert and oriented, no distress, pleasant and cooperative. Heart: Regular, normal S1 and S2, no murmurs, rubs, or gallops Lungs: Clear to auscultation bilaterally Abdomen: Benign Extremities: Feet/ankles without edema, posterior tibial pulses full and symmetrical LABS: OSH labs reviewed through care everywhere dated 04/06/21 ASSESSMENT/PLAN: 1. Factor V Leiden: Recurrent blood clots since 2008; prior therapy with warfarin, Arixtra and xarelto Xarelto changed to eliquis for insurance reasons Stable on eliquis 2.5mg BID, continue for now, refill given 2. Peripheral Vascular Disease Follows with [facility] (Dr. Scanlon) 3. Ischemic Vascular Disease Follows at [place] (Dr. Christy Moreland) 4. Abdominal symptoms. Question related to underlying vascular disease. Continues to follow with GI. Awaiting gynecology referal per [facility] GI department. Discussed our role of monitoring her for symptoms related to Factor V Leiden and mediation management of Eliquis. Will see her yearly for follow up. Gardenia Gupta PA-C CC: Dr. Shiva Garcia, DO Nguyen Cox MD documented in [facility]12-[facility] Evaluation note* Encounter Date Diagnosis Assessment Notes Treatment Notes Treatment Clinical Notes Jan, Abdominal pain (ICD-10 - R10.9) Jan, Irritable bowel syndrome with diarrhea (ICD-10 - K58.0) STOP DICYCLOMINE START COLESTIPOL Jan, GERD (gastroesophageal reflux disease) (ICD-10 - K21.9) INCREASE PANTOPRAZOLE TO 40MG BID FOLLOW UP IN 8 WEEKS [facility] Other 11-10-2021 Evaluation note* Encounter Date Diagnosis Assessment Notes Treatment Notes Treatment Clinical Notes Dec, Pain of cervical spine (ICD-10 - M54.2) Dec, Osteoarthritis of cervical spine without myelopathy (ICD-10 - M47.812) Patient's main complaints today is her returning cervical pain. Patient has failed conservative treatment options. She is unable to tolerate NSAIDs due to taking Eliquis.Patient was encouraged to continue with stretching and exercise at home. Patient benefitted from right cervical facet radiofrequency ablations for an extended period of time. Based on previous positive results and returning pain symptoms, patient is a candidate for a repeat right cervical facet medial branch radiofrequency ablations which we will proceed with. Risks and benefits of procedure explained to patient; additionally theoretical risks related to the COVID 19 pandemic were discussed, patient verbalizes understanding and consent was signed. It was discussed in detail, along with providing written instructions, for the patient to discuss and receive permission to stop their anticoagulation from their prescribing provider prior to each procedure. Additionally, the patient agrees to fully understand and accept the potential risks of stopping this medication prior to doing so. Dec, Other chronic pain (ICD-10 - G89.29) Dec, Other Above note writ ten by Scarlett Vu CMA, Finish Repair Worker. Edited and approved by Dr. Adan Julio MD. [facility] Other Evaluation + Plan note Future Appointments Appointment Date:06/03/2024 08:30:00 AM Scheduled Provider:Yanni Nassar MD Location:[facility] Appointment Type:Vascular Follow Up ([facility]) [facility] Evaluation + Plan note Future Appointments Appointment Date:12/23/2024 09:00:00 AM Scheduled Provider:Yanni Nassar MD Location:[facility] Clinic Appointment Type:Vascular Follow Up (FT) [facility] Evaluation note* Diagnosis Hypercoagulable state (HCC)- Primary Primary hypercoagulable state Vascular disease Unspecified circulatory system disorder [facility] noteNo InformationNort Ventealapropriete Other Evaluation noteNo assessment information available [facility] Work Phone: Evaluation note* Diagnosis Gastroparesis due to DM (HCC)- Primary Type II or unspecified type diabetes mellitus with neurological manifestations, not stated as uncontrolled Generalized abdominal pain Abdominal pain, generalized Gastroesophageal reflux disease with esophagitis without hemorrhage Irritable bowel syndrome with both constipation and diarrhea [facility]* Diagnosis Hypercoagulable state (HCC)- Primary Primary hypercoagulable state [facility]* Diagnosis Hypercoagulable state (HCC)- Primary Primary hypercoagulable state Hereditary coagulation factor deficiency (HCC) Other and unspecified coagulation defects 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rder (HCC) Obesity, Class III, BMI 40-49.9 (morbid obesity) (HCC) Morbid obesity Gastroparesis due to DM (HCC) (HCC) Type II or unspecified type diabetes mellitus with neurological manifestations, not stated as uncontrolled [facility]* Diagnosis Onset Date Resolution Status Chronic pain acute Osteoarthritis of cervical spine without myelopathy acute Pain of cervical spine acute [facility] Work Phone: Evaluation note* Diagnosis Gastroparesis- Primary Irritable bowel syndrome with both constipation and diarrhea [facility]* Diagnosis Gastroparesis due to DM (HCC) (HCC)- Primary Type II or unspecified type diabetes mellitus with neurological manifestations, not stated as uncontrolled [facility]* Diagnosis Gastroparesis- Primary [facility]* Diagnosis Gastroparesis- Primary Type 2 diabetes mellitus without complication, without long-term current use of insulin (HCC) [facility]* Diagnosis Preop examination- Primary Preoperative examination, unspecified Neck pain Cervicalgia Ascending aorta dilation (HCC) Thoracic aortic ectasia Gastroesophageal reflux disease, unspecified whether esophagitis present Gastroparesis due to DM (HCC) (HCC) Type II or unspecified type diabetes mellitus with neurological manifestations, not stated as uncontrolled Hereditary coagulation factor deficiency (HCC) Other and unspecified coagulation defects Hyperlipidemia, unspecified hyperlipidemia type Obesity, Class II, BMI 35-39.9 Obesity, unspecified SOB (shortness of breath) Shortness of breath PVD (peripheral vascular disease) (HCC) Peripheral vascular disease, unspecified History of DVT (deep vein thrombosis) Personal history of venous thrombosis and embolism Diabetes mellitus type 2 (HCC) Anxiety Anxiety state, unspecified Anticoagulated Long-term (current) use of anticoagulants Seizure disorder (HCC) Unspecified epilepsy without mention of intractable epilepsy PTSD (post-traumatic stress disorder) Posttraumatic stress disorder documented [facility] this [facility]* Diagnosis Gastroparesis due to DM (HCC) (HCC)- Primary Type II or unspecified type diabetes mellitus with neurological manifestations, not stated as uncontrolled [facility]* Diagnosis Pre-op evaluation- Primary Preoperative examination, unspecified Biliary colic Calculus of gallbladder without mention of cholecystitis or obstruction Hypercoagulable state (HCC) Primary hypercoagulable state Anticoagulated Long-term (current) use of anticoagulants Hyperlipidemia, unspecified hyperlipidemia type Coronary artery disease of [place] artery of [place] heart with stable angina pectoris (HCC) Type 2 diabetes mellitus without complication, without long-term current use of insulin (HCC) Gastroesophageal reflux disease without esophagitis Esophageal reflux Personal history of DVT (deep vein thrombosis) Personal history of venous thrombosis and embolism Fatty liver Other chronic nonalcoholic liver disease Morbid obesity (HCC) Morbid obesity Seizures (HCC) Other convulsions SOB (shortness of breath) Shortness of breath PVD (peripheral vascular disease) (HCC) Peripheral vascular disease, unspecified Ascending aorta dilation (HCC) Thoracic aortic ectasia Preop examination- Primary Preoperative examination, unspecified Biliary colic Calculus of gallbladder without mention of cholecystitis or obstruction Seizures (HCC) Other convulsions Ascending aorta dilation (HCC) Thoracic aortic ectasia PVD (peripheral vascular disease) (HCC) Peripheral vascular disease, unspecified Coronary artery disease of [place] artery of [place] heart with stable angina pectoris (HCC) SOB (shortness of breath) Shortness of breath Gastroesophageal reflux disease without esophagitis Esophageal reflux Type 2 diabetes mellitus without complication, without long-term current use of insulin (HCC) Personal history of DVT (deep vein thrombosis) Personal history of venous thrombosis and embolism Hypercoagulable state (HCC) Primary hypercoagulable state History of COVID-19 Nausea- Primary Nausea alone Gastroparesis due to DM ([facility]) (HCC) Type II or unspecified type diabetes mellitus with neurological manifestations, not stated as uncontrolled [facility]* Diagnosis Onset Date Resolution Status Admit Date Cervical spondylosis with radiculopathy acute January 14, 2 024 10:49am Chronic pain acute December 10:49am Pain of cervical spine acute No vember 2023 10:49am [facility] Work Phone: Evaluation note* Diagnosis FERNY (generalized anxiety disorder) Generalized anxiety disorder [facility] Diagnosis Type 2 diabetes mellitus without complication, without long-term current use of insulin ([facility])- Primary FERNY (generalized anxiety disorder) Generalized anxiety disorder Acute non-recurrent maxillary sinusitis Hereditary coagulation factor deficiency ([facility]) Other and unspecified coagulation defects SVT (supraventricular tachycardia) ([facility]) Other specified cardiac dysrhythmias Gastroparesis due to DM ([facility]) Emotional instability ([facility]) Explosive personality disorder 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rder ([facility]) Type 2 diabetes mellitus with hyperglycemia, without long-term current use of insulin ([facility]) Aneurysm of ascending aorta without rupture ([facility]) Seizure disorder ([facility]) Unspecified epilepsy without mention of intractable epilepsy Hypercoagulable state ([facility]) Primary hypercoagulable state BMI 40.0-44.9, adult ([facility]) [facility] Diagnosis Pre-op evaluation- Primary Preoperative examination, unspecified Biliary colic Calculus of gallbladder without mention of cholecystitis or obstruction Hypercoagulable state (HCC) Primary hypercoagulable state Anticoagulated Long-term (current) use of anticoagulants Hyperlipidemia, unspecified hyperlipidemia type Coronary artery disease of [place] artery of [place] nation heart with stable angina pectoris (HCC) Type 2 diabetes mellitus without complication, without long-term current use of insulin (HCC) Gastroesophageal reflux disease without esophagitis Esophageal reflux Personal history of DVT (deep vein thrombosis) Personal history of venous thrombosis and embolism Fatty liver Other chronic nonalcoholic liver disease Morbid obesity (HCC) Morbid obesity Seizures (HCC) Other convulsions SOB (shortness of breath) Shortness of breath PVD (peripheral vascular disease) (HCC) Peripheral vascular disease, unspecified Ascending aorta dilation (HCC) Thoracic aortic ectasia Preop examination- Primary Preoperative examination, unspecified Biliary colic Calculus of gallbladder without mention of cholecystitis or obstruction Seizures (HCC) Other convulsions Ascending aorta dilation (HCC) Thoracic aortic ectasia PVD (peripheral vascular disease) (HCC) Peripheral vascular disease, unspecified Coronary artery disease of [place] artery of [place] heart with stable angina pectoris (HCC) SOB (shortness of breath) Shortness of breath Gastroesophageal reflux disease without esophagitis Esophageal reflux Type 2 diabetes mellitus without complication, without long-term current use of insulin (HCC) Personal history of DVT (deep vein thrombosis) Personal history of venous thrombosis and embolism Hypercoagulable state (HCC) Primary hypercoagulable state History of COVID-19 Nausea- Primary Nausea alone documented in this encounter [facility] note* Diagnosis Pre-op evaluation- Primary Preoperative examination, unspecified Biliary colic Calculus of gallbladder without mention of cholecystitis or obstruction Hypercoagulable state (HCC) Primary hypercoagulable state Anticoagulated Long-term (current) use of anticoagulants Hyperlipidemia, unspecified hyperlipidemia type Coronary artery disease of [place] artery of [place] heart with stable angina pectoris Type 2 diabetes mellitus without complication, without long-term current use of insulin (HCC) Gastroesophageal reflux disease without esophagitis Esophageal reflux Personal history of DVT (deep vein thrombosis) Personal history of venous thrombosis and embolism Fatty liver Other chronic nonalcoholic liver disease Morbid obesity (HCC) Morbid obesity Seizures (HCC) Other convulsions SOB (shortness of breath) Shortness of breath PVD (peripheral vascular disease) Peripheral vascular disease, unspecified Ascending aorta dilation Thoracic aortic ectasia Preop examination- Primary Preoperative examination, unspecified Biliary colic Calculus of gallbladder without mention of cholecystitis or obstruction Seizures (HCC) Other convulsions Ascending aorta dilation Thoracic aortic ectasia PVD (peripheral vascular disease) Peripheral vascular disease, unspecified Coronary artery disease of [place] artery of [place] heart with stable angina pectoris SOB (shortness of breath) Shortness of breath Gastroesophageal reflux disease without esophagitis Esophageal reflux Type 2 diabetes mellitus without complication, without long-term current use of insulin (HCC) Personal history of DVT (deep vein thrombosis) Personal history of venous thrombosis and embolism Hypercoagulable state (HCC) Primary hypercoagulable state History of COVID-19 Hypercoagulable state (HCC)- Primary Primary hypercoagulable state [facility] Diagnosis Pre-op evaluation- Primary Preoperative examination, unspecified Biliary colic Calculus of gallbladder without mention of cholecystitis or obstruction Hypercoagulable state (HCC) Primary hypercoagulable state Anticoagulated Long-term (current) use of anticoagulants Hyperlipidemia, unspecified hyperlipidemia type Coronary artery disease of [place] artery of [place] heart with stable angina pectoris Type 2 diabetes mellitus without complication, without long-term current use of insulin (HCC) Gastroesophageal reflux disease without esophagitis Esophageal reflux Personal history of DVT (deep vein thrombosis) Personal history of venous thrombosis and embolism Fatty liver Other chronic nonalcoholic liver disease Morbid obesity (HCC) Morbid obesity Seizures (HCC) Other convulsions SOB (shortness of breath) Shortness of breath PVD (peripheral vascular disease) Peripheral vascular disease, unspecified Ascending aorta dilation Thoracic aortic ectasia Preop examination- Primary Preoperative examination, unspecified Biliary colic Calculus of gallbladder without mention of cholecystitis or obstruction Seizures (HCC) Other convulsions Ascending aorta dilation Thoracic aortic ectasia PVD (peripheral vascular disease) Peripheral vascular disease, unspecified Coronary artery disease of [place] artery of [place] heart with stable angina pectoris SOB (shortness of breath) Shortness of breath Gastroesophageal reflux disease without esophagitis Esophageal reflux Type 2 diabetes mellitus without complication, without long-term current use of insulin (HCC) Personal history of DVT (deep vein thrombosis) Personal history of venous thrombosis and embolism Hypercoagulable state (HCC) Primary hypercoagulable state History of COVID-19 Nausea Nausea alone [facility] Diagnosis Burning with urination- Primary Dysuria Dysuria Proteinuria, unspecified type Type 2 diabetes mellitus without complication, without long-term current use of insulin ([facility] [facility] Diagnosis Type 2 diabetes mellitus with hyperglycemia, without long-term current use of insulin ([facility] [place] Primary Cyst of right kidney Unspecified congenital cystic kidney disease Mixed hyperlipidemia BMI 40.0-44.9, adult ([facility]) Glucosuria Glycosuria [facility] Diagnosis Mixed hyperlipidemia [facility] N[facility] - Reported* Type Description Date Medical History Susan 5 Medical History type II diabetes Medical History epilepsy Surgical History blod clot left leg 2009 Surgical History blood clot left leg/jugular vei n Surgical History hip displasia Surgical History Procedure:filter belly button 2 009 Surgical History HYSTERECTOMY Surgical History Procedure: two stents in left g roin 2008 Surgical History Procedure: Hysterectomy 2012 Surgical History Procedure: venal bypass right t o left leg 2011 Surgical History Proceudre: rotator cuff left sh oulder 2017 Surgical History CHOLECYSTECTOMY 2020 Hospitalization History See above [facility] Other History general Narrative - Reported* Type Description Date Medical History Susan 5 Medical History type II diabetes Medical History epilepsy Medical History IBS Medical History GERD Medical History hyperlipidemia Medical History HTN Surgical History blod clot left leg 2009 Surgical History blood clot left leg/jugular vei n Surgical History hip displasia Surgical History Procedure:filter belly button 2 009 Surgical History HYSTERECTOMY Surgical History Procedure: two stents in left g roin 2008 Surgical History Procedure: Hysterectomy 2011 Surgical History Procedure: venal bypass right t o left leg 2011 Surgical History Proceudre: rotator cuff left sh oulder 2016 Surgical History CHOLECYSTECTOMY 2020 Hospitalization History See above [facility] Other Hospital course Narrative No data available for this section [facility] instructions No data available for this section [facility] Discharge instructions Additional Instructions Continue your medications at home as prescribed Elevate Please follow-up with your primary care doctor regarding the pump that you posted received. Please also follow-up with your vascular surgeon Take [place] as needed for severe pain You cannot work or drive when [facility] Work Phone: InstructionsNot on filedocumented in this encounter [facility] filedocument[facility] in this encounter [facility] filedocumented in this encounter [facility] filedocumented in this encounter [facility] on filedocumented in this encounter [facility] No data available for this section [facility] Outpatient Procedure (Routine) - Authorized Specialty Diagnoses / Procedures Referred By Reema chadwick Referred To Contact [facility] Diagnoses Gastroparesis due to DM (HCC) (HCC) Procedures EGD - THERAPEUTIC, EUS, OR TUBE INTERVENTIONS ESOPHAGOGASTRODUODENOSC OPY TRANSORAL DIAGNOSTIC STOMACH SURGERY PROCEDURE UNLISTED Martine Bowling MD [place] [employer] [address] [place] [id number] [address] [address] Referral ID Status Reason Start Date Expiration Date Visits Requested Visits Authorized [id number] Authorized Auto-Generat ed Referral 08/02/2023 08/01/2024 1 1 [facility] for referral (narrative)* Outpatient Procedure (Routine) - Closed Specialty Diagnoses / Procedures Referred By Reema chadwick Referred To Contact [facility] Diagnoses Gastroparesis due to DM (HCC) (HCC) Procedures EGD - THERAPEUTIC, EUS, OR TUBE INTERVENTIONS ESOPHAGOGASTRODUODENOSC OPY TRANSORAL DIAGNOSTIC STOMACH SURGERY PROCEDURE UNLISTED Martine Bowling MD [place] [facility] [address] [place] [id number] [place] [id number] Referral ID Status Reason Start Date Expiration Date V isits Requested Visits Authorized [id number] Closed Patient Cleared - Admin/Chairm an/Director advise to proceed or did not respond 08/02/2023 08/01/2024 1 1 [facility] for referral (narrative)* Diagnostic Procedure Only (Routine) - New Request Specialty Diagnoses / Procedures Referred By Reema chadwick Referred To Contact [facility]LECULAR [facility] FUNCTIONAL IMAGING Diagnoses Nausea Procedures NM GASTRIC EMPTYING SOLID GASTRIC EMPTYING STUDY Martine Bowling MD [place] [facility] [address] [place] [id number] Molecular [facility] Functional Imaging [address] [place] [address] Referral ID Status Reason Start Date Expiration Date Visits Requested Visits Authorized [id number] New Request Auto-Generat ed Referral 10/18/2023 11/14/2024 1 1 [facility] for visit Narrative* Outpatient Procedure (Routine) - Outside PCP Specialty Diagnoses / Procedures Referred By Reema t Referred To Contact Radiology / IMAGING Diagnoses Gastroparesis Weight 200 / Patient is Diabetic / ORDER IN SCAN DOCUMENTS / DX: K31.84 / Scheduled w/ Patient Procedures GASTRIC EMPTYING STUDY SOLID Laxmi Gunter MD [address] [place] [id number] [facility] [place] [address] [place] [address] Referral ID Status Reason Start Date Expiration Date Visits Requested Visits Authorized [id number] Outside PCP Patient Cleared - Admin/Chair man/Directo r advise to proceed or did not respond 05/15/2023 08/13/2023 1 1 [facility] for visit Narrative* Outpatient Procedure (Routine) - Closed Specialty Diagnoses / Procedures Referred By Reema chadwick Referred To Contact [facility] Diagnoses Gastroparesis due to DM (HCC) (HCC) Procedures EGD - THERAPEUTIC, EUS, OR TUBE INTERVENTIONS ESOPHAGOGASTRODUODENOSC OPY TRANSORAL DIAGNOSTIC STOMACH SURGERY PROCEDURE UNLISTED Martine Bowling MD [facility] [address] [place] [address] [facility] [place] [address] [place] [address] Referral ID Status Reason Start Date Expiration Date V isits Requested Visits Authorized [id number] Closed Patient Cleared - Admin/Chairm an/Director advise to proceed or did not respond 08/02/2023 08/01/2024 1 1 [facility] for visit Narrative* Consult, Test, Treat (Routine) - Pending Review Specialty Diagnoses / Procedures Referred By Reema chadwick Referred To Contact Hematology/Oncology / HEMATOLOGY/ONCOLOGY Diagnoses RODRICK KAPIL-1 Year Follow Up Labs 01/16-Called Spoke With Pt Regarding This Appt Pt Aware Will See Dr Barker Procedures TRANSITION OF CARE Angélica Allred [address] [place] [address] Phone: tel: Stef Michele MD [address] [place] [address] [place] [address] Phone: tel: fax: Referral ID Status Reason Start Date Expiration Date V isits Requested Visits Authorized [id number] Pending Review 05/27/2024 02/26/2025 1 0 [facility]* Diagnostic Procedure Only (Routine) - Closed Specialty Diagnoses / Procedures Referred By Contac t Referred To Contact MOLECULAR [facility] FUNCTIONAL IMAGING Diagnoses Nausea Procedures NM GASTRIC EMPTYING SOLID GASTRIC EMPTYING STUDY Martine Bowling MD [address] [place] [address] Phone: tel: fax: Molecular Imaging [address] [place] [address] Phone: tel: Referral ID Status Reason Start Date Expiration Date V isits Requested Visits Authorized [id number] Closed Auto-Generate d Referral 05/01/2024 05/29/2025 1 1 [facility] Summary Purpose Family History No Family History Records Found Relationship Condition Age at Onset Recorded Date/T vinny Not Specified Diabetes mellitus Unknown Heart disease Unknown father Diabetes mellitus Unknown Relationship Condition Age at Onset Recorded Date/T vinny Not Specified Diabetes mellitus Unknown Heart disease Unknown father Diabetes mellitus Unknown family member Malignant neoplasm Unknown brother Hypertension Unknown grandparent Malignant neoplasm Unknown Relationship Condition Age at Onset Recorded Date/T vinny Not Specified Diabetes mellitus Unknown Heart disease Unknown father Diabetes mellitus Unknown Hypertension Unknown family member Malignant neoplasm Unknown brother Hypertension Unknown grandparent Malignant neoplasm Unknown Relationship Condition Age at Onset Recorded Date/T vinny mother Diabetes mellitus Unknown Heart disease Unknown father Diabetes mellitus Unknown Hypertension Unknown aunt Malignant neoplasm Unknown brother Hypertension Unknown grandparent Malignant neoplasm Unknown Advance Directives No Advanced Directives Records FoundDocuments on File Type Date Recorded Patient Veterinary Radiologist Expl anation Advance Directive(s) 02/17/2020 8:22 AM Advance Directive(s) 02/06/2020 8:30 AM Advance Directive Response Recorded Date/ Time Advance Directives No December 11, 2016 12:20pm Advance Directive Response Recorded Date/ Time Advance Directives No December 11, 2016 11:20am Procedure Findings Note HNO ID: [id number] Author: Skip Quiroga Service: ? Author Type: Nurse Bus System Operator Type: Anesthesia Procedure Notes Filed: 03/16/2020 8:30 AM Note Text: ANESTHESIOLOGY PROCEDURE NOTE Airway General Information Procedure Start Time/Medication Administration: 03/16/2020 7:47 AM Procedure End Time: 03/16/2020 7:48 AM Patient location during procedure: OR Timeout Performed Pre-procedure: no timeout performed, emergent Consent Obtained: Yes Patient identity confirmed: arm band Staffing Anesthesiologist: Hernesto Chew Performed by: resident Indications and Patient Condition Preoxygenated: yes Patient position: sniffing Difficult Mask: No Indications for airway management: anesthesia and airway protection anesthesia circuit Method: asleep Airway Accessory: oral airway (90mm) Final Airway Details Final airway type: endotracheal airway Final Endotracheal Airway: ETT Cuffed: yes Successful intubation technique: direct laryngoscopy Devices used: intubating stylet Endotracheal tube insertio (more content not included)... Note HNO ID: [id number] Author: Skip Quiroga Service: ? Author Type: Nurse Bus System Operator Type: Anesthesia Procedure Notes Filed: 03/16/2020 8:31 AM Note Text: ANESTHESIOLOGY PROCEDURE NOTE PIV General Information Procedure Start Time/Medication Administration: 03/16/2020 7:45 AM Procedure End Time: 03/16/2020 7:45 AM Staffing DIRECTOR AGENCY & STRATEGIC PARTNERSHIPS: Laura Quiroga Preparation Sterility Preparation: hand hygiene performed prior to procedure, surgical cap used, mask used, skin prep agent completely dried prior to procedure Site Prep: Chloraprep Procedure Details Indication: need for IV access Needle Size/Type: 20 gauge angiocath Orientation: Right Location: Hand SIGNATURE: Laura Quiroga APRN.CRNA PATIENT NAME: Naila Beltran DATE: March 16, 2020 TIME: 8:31 AM CSN: [id number] Note HNO ID: [id number] Author: Skip Quiroga Service: ? Author Type: Nurse Bus System Operator Type: Anesthesia Procedure Notes Filed: 03/16/2020 8:33 AM Note Text: ANESTHESIOLOGY PROCEDURE NOTE Gastric Tube General Information Procedure Start Time/Medication Administration: 03/16/2020 7:50 AM Procedure End Time: 03/16/2020 7:50 AM Patient location during procedure: OR Consent Obtained: Yes Patient identity confirmed: arm band Indication: gastric decompression Staffing DIRECTOR AGENCY & STRATEGIC PARTNERSHIPS: Laura (Tom Quiroga Procedure Details Type: Orogastric tube Size: 18 Fr cm Distance Advanced: 50 cm Initial Auscultation Appears Confirmatory: Yes Successful Placement: yes Post-Procedure Details SIGNATURE: Laura Quiroga APRN.CRNA PATIENT NAME: Naila Beltran DATE: March 16, 2020 TIME: 8:32 AM CSN: [id number] Chief Complaint and Reason for Visit Chief Complaint leg pain i82.429 Chief Complaint leg pain i82.429 left leg pain Chief Complaint chest and stomach pa in Chief Complaint RECHECK CERVICAL HOMERO N Reason for Visit Chronic pain Osteoarthritis of cervical spine without myelopathy Pain of cervical spine Chief Complaint RECHECK CERVICAL HOMERO N Cervical Pain Cervical Pain Reason for Visit Chronic pain Osteoarthritis of cervical spine without myelopathy Pain of cervical spine Chief Complaint Admit Date RECHECK CERVICAL PAIN January 14 10:49am Reason for Visit Admit Date Cervical spondylosis with radiculopathy January 15, 2024 10:49am Chronic pain January 15, 2024 10:49am Pain of cervical spine January 14 10:49am Reason for Referral Reason *FU 02/15 evaluate and treat for gastroparesis gastric emptying study ordered for 4 hour at F Diagnosis 1 Gastroparesis (K31.8 4) Referral Organization [facility] Gastroenterolo [facility] Referring Provider First Name Imad Referring Provider Last Name Asaad Referring Provider Specialty Gastroenter ology Referred Organization Unknown Facility Referred Provider Veronica Quiles Referred Provider Specialty Unknown Referral Priority Routine General Notes Elda Paulson 1 04/03/2022 10:37:20 AM > Referral faxed to [facility] Referral Dept. Elda Paulson 02/08/2023 12:28:06 PM > Letter faxed to follow up. Elda Paulson 02/13/2023 04:43:42 PM > Per fax from [facility] they received the referral but they did not state if an appt was set up. Specialty Diagnoses / Procedures Referred By Reema chadwick Referred To Contact Diagnoses Gastroesophageal reflux disease with esophagitis without hemorrhage Shiva Garcia Jr., DO [address] [place] [address] Referral ID Status Reason Start Date Expiration Date V isits Requested Visits Authorized [id number] Pending Review 1 1 Specialty Diagnoses / Procedures Referred By Reema chadwick Referred To Contact CT IMAGING Diagnoses Generalized abdominal pain Procedures CT ABD/PEL W IVCON CT ABD & PELVIS W/CONTRAST Shiva Garcia Jr., DO [address] [place] [address] Ct [facility] Referral ID Status Reason Start Date Expiration Date Visits Requested Visits Authorized [id number] Authorized Auto-Generat ed Referral 03/25/2022 04/24/2023 1 1 Additional Source Comments INFORMATION SOURCE (unrecogn ized section and content) DATE CREATED AUTHOR 03/21/2020 [facility] DATE CREATED AUTHOR AUTHOR'S ORGANIZ ATION 09/24/2020 [facility] DATE CREATED AUTHOR AUTHOR'S ORGANIZ ATION 12/23/2021 [facility] DATE CREATED AUTHOR AUTHOR'S ORGANIZ ATION 08/04/2023 [facility] DATE CREATED AUTHOR AUTHOR'S ORGANIZ ATION 08/24/2023 [facility] DATE CREATED AUTHOR AUTHOR'S ORGANIZ ATION 12/21/[address] [facility] DATE CREATED AUTHOR AUTHOR'S ORGANIZ ATION 12/21/2023 [facility] DATE CREATED AUTHOR AUTHOR'S ORGANIZ ATION 06/11/[address] [facility] DATE CREATED AUTHOR AUTHOR'S ORGANIZ ATION 06/25/2024 [facility] DATE CREATED AUTHOR AUTHOR'S ORGANIZ ATION 07/03/2024 [facility] DATE CREATED AUTHOR AUTHOR'S ORGANIZ ATION 08/31/2024 [facility] DATE CREATED AUTHOR AUTHOR'S ORGANIZ ATION 09/14/2024 [facility] DATE CREATED AUTHOR AUTHOR'S ORGANIZ ATION 10/11/2024 [facility] Source Comments (unrecognize d section and content) In the event this informatio n is protected by the Federal Confidentiality of Alcohol and Drug Abuse Patient Records regulations: The Federal rules restrict any use of the information to criminally investigate or prosecute any alcohol or drug abuse patient.[facility] the event this information is protected by the Federal Confidentiality of Alcohol and Drug Abuse Patient Records regulations: The Federal rules restrict any use of the information to criminally investigate or prosecute any alcohol or drug abuse patient.[facility] the event this information is protected by the Federal Confidentiality of Alcohol and Drug Abuse Patient Records regulations: The Federal rules restrict any use of the information to criminally investigate or prosecute any alcohol or drug abuse patient.[facility] the event this information is protected by the Federal Confidentiality of Alcohol and Drug Abuse Patient Records regulations: The Federal rules restrict any use of the information to criminally investigate or prosecute any alcohol or drug abuse patient.[facility] the event this information is protected by the Federal Confidentiality of Alcohol and Drug Abuse Patient Records regulations: The Federal rules restrict any use of the information to criminally investigate or prosecute any alcohol or drug abuse patient.[facility] the event this information is protected by the Federal Confidentiality of Alcohol and Drug Abuse Patient Records regulations: The Federal rules restrict any use of the information to criminally investigate or prosecute any alcohol or drug abuse patient.[facility] the event this information is protected by the Federal Confidentiality of Alcohol and Drug Abuse Patient Records regulations: The Federal rules restrict any use of the information to criminally investigate or prosecute any alcohol or drug abuse patient.[facility] the event this information is protected by the Federal Confidentiality of Alcohol and Drug Abuse Patient Records regulations: The Federal rules restrict any use of the information to criminally investigate or prosecute any alcohol or drug abuse patient.[facility] the event this information is protected by the Federal Confidentiality of Alcohol and Drug Abuse Patient Records regulations: The Federal rules restrict any use of the information to criminally investigate or prosecute any alcohol or drug abuse patient.[facility] the event this information is protected by the Federal Confidentiality of Alcohol and Drug Abuse Patient Records regulations: The Federal rules restrict any use of the information to criminally investigate or prosecute any alcohol or drug abuse patient.[facility] Hospital[facility] the event this information is protected by the Federal Confidentiality of Alcohol and Drug Abuse Patient Records regulations: The Federal rules restrict any use of the information to criminally investigate or prosecute any alcohol or drug abuse patient.[facility] HospitalIn the event this information is protected by the Federal Confidentiality of Alcohol and Drug Abuse Patient Records regulations: The Federal rules restrict any use of the information to criminally investigate or prosecute any alcohol or drug abuse patient.[facility] HospitalIn the event this information is protected by the Federal Confidentiality of Alcohol and Drug Abuse Patient Records regulations: The Federal rules restrict any use of the information to criminally investigate or prosecute any alcohol or drug abuse patient.[facility] HospitalIn the event this information is protected by the Federal Confidentiality of Alcohol and Drug Abuse Patient Records regulations: The Federal rules restrict any use of the information to criminally investigate or prosecute any alcohol or drug abuse patient.[facility] HospitalIn the event this information is protected by the Federal Confidentiality of Alcohol and Drug Abuse Patient Records regulations: The Federal rules restrict any use of the information to criminally investigate or prosecute any alcohol or drug abuse patient.[facility] HospitalIn the event this information is protected by the Federal Confidentiality of Alcohol and Drug Abuse Patient Records regulations: The Federal rules restrict any use of the information to criminally investigate or prosecute any alcohol or drug abuse patient.[facility] HospitalIn the event this information is protected by the Federal Confidentiality of Alcohol and Drug Abuse Patient Records regulations: The Federal rules restrict any use of the information to criminally investigate or prosecute any alcohol or drug abuse patient.[facility] HospitalIn the event this information is protected by the Federal Confidentiality of Alcohol and Drug Abuse Patient Records regulations: The Federal rules restrict any use of the information to criminally investigate or prosecute any alcohol or drug abuse patient.[facility] HospitalIn the event this information is protected by the Federal Confidentiality of Alcohol and Drug Abuse Patient Records regulations: The Federal rules restrict any use of the information to criminally investigate or prosecute any alcohol or drug abuse patient.[facility] HospitalIn the event this information is protected by the Federal Confidentiality of Alcohol and Drug Abuse Patient Records regulations: The Federal rules restrict any use of the information to criminally investigate or prosecute any alcohol or drug abuse patient.[facility] HospitalIn the event this information is protected by the Federal Confidentiality of Alcohol and Drug Abuse Patient Records regulations: The Federal rules restrict any use of the information to criminally investigate or prosecute any alcohol or drug abuse patient.[facility] HospitalIn the event this information is protected by the Federal Confidentiality of Alcohol and Drug Abuse Patient Records regulations: The Federal rules restrict any use of the information to criminally investigate or prosecute any alcohol or drug abuse patient.[facility] HospitalIn the event this information is protected by the Federal Confidentiality of Alcohol and Drug Abuse Patient Records regulations: The Federal rules restrict any use of the information to criminally investigate or prosecute any alcohol or drug abuse patient.[facility] HospitalIn the event this information is protected by the Federal Confidentiality of Alcohol and Drug Abuse Patient Records regulations: The Federal rules restrict any use of the information to criminally investigate or prosecute any alcohol or drug abuse patient.[facility] HospitalIn the event this information is protected by the Federal Confidentiality of Alcohol and Drug Abuse Patient Records regulations: The Federal rules restrict any use of the information to criminally investigate or prosecute any alcohol or drug abuse patient.[facility] HospitalIn the event this information is protected by the Federal Confidentiality of Alcohol and Drug Abuse Patient Records regulations: The Federal rules restrict any use of the information to criminally investigate or prosecute any alcohol or drug abuse patient.[facility] HospitalIn the event this information is protected by the Federal Confidentiality of Alcohol and Drug Abuse Patient Records regulations: The Federal rules restrict any use of the information to criminally investigate or prosecute any alcohol or drug abuse patient.[facility] HospitalIn the event this information is protected by the Federal Confidentiality of Alcohol and Drug Abuse Patient Records regulations: The Federal rules restrict any use of the information to criminally investigate or prosecute any alcohol or drug abuse patient.[facility] Reason for Visit (unrecogniz ed section and content) Reason Comments hypercoagulable state Reason Comments Irritable Bowel Syndrome Reason Comments Hypercoagulable state 1 year follow up Reason Comments Refill Request Reason Comments Radiology NM Appointment reminder . Reason Comments Care Coordination Gastroparesis clinic : new patient call; chart review Reason Comments New Patient Evaluation New patient eval. 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 Reason Onset Date Comments Refill Request 10/11/2023 Reason Comments Gastroparesis Reason Comments Radiology NM Reason Comments Med Refill Reason Comments Follow-up 3 month f/u, mammogr am scheduled, sick ongoing a month with sinus Reason Onset Date Comments Med Refill 04/22/2024 Reason Comments Orders Reason Onset Date Comments Multiple Needs 07/01/2024 Reason Onset Date Comments Med Refill 06/27/2024 Reason Onset Date Comments Appointment due 07/26/2024 Reason Comments Back Pain Right lower back homero n Reason Comments Follow-up Puja US and labs comp Care Teams (unrecognized sec tion and content) 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 Relationship Specialty Start Date End Date Cece Hannon [address] [place] [address] PCP - General Internal Medicine 02/06/20 Christy Moreland [address] [place] [address] Cardiology 02/06/20 Feng Jimenez DO Internal Medicine 02/06/20 Team Status: Inactive Member Role Status Dates Cece Hannon PA-C Primary Care Provider Active Yanni Nassar MD Attending Provider Active Team Status: Active Member Role Status Dates Cece Hannon PA-C Primary Care Provider Active Team Status: Inactive Member Role Status Dates Cece Hannon PA-C Primary Care Provider Active Inocencia Alvarez , DIRECTOR OF [employer] Emergency Provider Active 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 Relationship Specialty Start Date End Date Cece Hannon [address] [place] [address] PCP - General Internal Medicine 02/06/20 Christy Moreland [address] [place] [address] Cardiology 02/06/20 Feng Jimenez, DO [address] [place] [address] Internal Medicine 02/06/20 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 Relationship Specialty Start Date End Date Cece Hannon [address] [place] [address] PCP - General Internal Medicine 02/06/20 Christy Moreland [address] [place] [address] Cardiology 02/06/20 Feng Jimenez, DO [address] [place] [address] Internal Medicine 02/06/20 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 Relationship Specialty Start Date End Date Cece Hannon [address] [place] [address] PCP - General Internal Medicine 02/06/20 Christy Moreland [address] [place] [address] Cardiology 02/06/20 Feng Jimenez DO [address] [facility] [place] [address] Internal Medicine 02/06/20 Team Status: Inactive Member Role Status Dates Cece Hannon PA-C Primary Care Provider Active Dennis Clark MD Emergency Provider Active 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 Relationship Specialty Start Date End Date Cece Hannon PA-C [address] [place] [address] PCP - General Internal Medicine 02/06/20 Christy Moreland MD [address] [place] [place] [address] Cardiology 02/06/20 Feng Jimenez DO [address] [place] [address] Internal Medicine 02/06/20 Laxmi Gunter MD [address] [place] [id number] Referring Gastroenterology 02/04/23 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 Relationship Specialty Start Date End Date Cece Hannon PA-C [address] [place] [address] PCP - General Internal Medicine 02/06/20 Christy Moreland MD [address] [place] [address] Cardiology 02/06/20 Feng Jimenez DO [address] [place] [address] Internal Medicine 02/06/20 Laxmi Gunter MD [address] [place] [phone] Referring Gastroenterology 02/04/23 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 Relationship Specialty Start Date End Date Cece Hannon PA-C [address] [place] [address] PCP - General Internal Medicine 02/06/20 Christy Moreland MD [address] [place] [address] Cardiology 02/06/20 Feng Jimenez DO [address] [place] [address] Internal Medicine 02/06/20 Laxmi Gunter MD [address] [place] [phone] Referring Gastroenterology 02/04/23 Team Status: Inactive Member Role Status Dates Cece Hannon PA-C Primary Care Provider Active Start: July 05, 2023 End: July 05, 2023 Adan Julio MD Attending Provider Active Sta rt: July 05, 2023 End: July 05, 2023 Team Status: Inactive Member Role Status Dates Cece Hannon PA-C Primary Care Provider Active Start: July 25, 2023 End: July 25, 2023 Adan Julio MD Attending Provider Active Sta rt: July 25, 2023 End: July 25, 2023 Team Status: Active Member Role Status Dates Cece Hannon PA-C Primary Care Provider Active Start: July 25, 2023 Adan Julio MD Attending Provider, Other Provider Active Start: July 25, 2023 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 Relationship 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 Start Date End Date Cece Hannon PA-C [address] [place] [address] PCP - General Internal Medicine 02/06/20 Christy Moreland MD [address] [place] [address] Cardiology 02/06/20 Feng Jimenez DO [address] [place] [address] Internal Medicine 02/06/20 Laxmi Gunter MD [address] [place] [id number] Referring Gastroenterology 02/04/23 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 Relationship Specialty Start Date End Date Cece Hannon PA-C [address] [place] [address] PCP - General Internal Medicine 02/06/20 Christy Moreland MD [address] [place] [address] Cardiology 02/06/20 Feng Jimenez DO [address] [place] [address] Internal Medicine 02/06/20 Laxmi Gunter MD [address] [place] [phone] Referring Gastroenterology 02/04/23 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 Relationship Specialty Start Date End Date Cece Hannon PA-C [address] [place] [address] PCP - General Internal Medicine 02/06/20 Christy Moreland MD [address] [place] [address] Cardiology 02/06/20 Feng Jimenez DO [address] [place] [address] Internal Medicine 02/06/20 Laxmi Gunter MD [address] [place] [phone] Referring Gastroenterology 02/04/23 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 Relationship Specialty Start Date End Date Cece Hannon PA-C [address] [place] [address] PCP - General Internal Medicine 02/06/20 Christy Moreland MD [address] [place] [address] Cardiology 02/06/20 Feng Jimenez DO [address] [place] [address] Internal Medicine 02/06/20 Laxmi Gunter MD [address] [place] [phone] Referring Gastroenterology 02/04/23 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 Relationship Specialty Start Date End Date Cece Hannon PA-C [address] [place] [address] PCP - General Internal Medicine 02/06/20 Christy Moreland MD [address] [place] [address] Cardiology 02/06/20 Feng Jimenez DO [address] [place] [address] Internal Medicine 02/06/20 Laxmi Gunter MD [address] [place] [phone] Referring Gastroenterology 02/04/23 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 Relationship Specialty Start Date End Date Cece Hannon PA-C [address] [place] [address] PCP - General Internal Medicine 02/06/20 Christy Moreland MD [address] [place] [address] Cardiology 02/06/20 Feng Jimenez DO [address] [place] [address] Internal Medicine 02/06/20 Laxmi Gunter MD [address] [place] [phone] Referring Gastroenterology 02/04/23 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 Relationship Specialty Start Date End Date Cece Hannon PA-C [address] [place] [address] PCP - General Internal Medicine 02/06/20 Christy Moreland MD [address] [place] [address] Cardiology 02/06/20 Feng Jimenez DO [address] [place] [address] Internal Medicine 02/06/20 Laxmi Gunter MD [address] [place] [phone] Referring Gastroenterology 02/04/23 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 Relationship Specialty Start Date End Date Cece Hannon PA-C [address] [place] [address] PCP - General Internal Medicine 02/06/20 Christy Moreland MD [address] [place] [place] [address] Cardiology 02/06/20 Feng Jimenez DO [address] [place] [address] Internal Medicine 02/06/20 Laxmi Gunter MD [address] [place] [phone] Referring Gastroenterology 02/04/23 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 Relationship Specialty Start Date End Date Cece Hannon PA-C [address] [place] [address] PCP - General Internal Medicine 02/06/20 Christy Moreland MD [address] [place] [place] [address] Cardiology 02/06/20 Feng Jimenez DO [address] [place] [address] Internal Medicine 02/06/20 Laxmi Gunter MD [address] [place] [phone] Referring Gastroenterology 02/04/23 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 Relationship Specialty Start Date End Date Cece Hannon PA-C [address] [place], [place] [id number] PCP - General Internal Medicine 02/06/20 Christy Moreland MD [address] [place] [address] Cardiology 02/06/20 Feng Jimenez DO [address] [place] [address] Internal Medicine 02/06/20 Laxmi Gunter MD [address] [place] [address] Referring Gastroenterology 02/04/23 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 Relationship Specialty Start Date End Date Cece Hannon PA-C [address] [place] [address] PCP - General Internal Medicine 02/06/20 Christy Moreland MD [address] [place] [place] [address] Cardiology 02/06/20 Feng Jimenez DO [address] [place] [address] Internal Medicine 02/06/20 Laxmi Gunter MD [address] [place] [phone] Referring Gastroenterology 02/04/23 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 Relationship Specialty Start Date End Date Cece Hannon PA-C [address] [place] [address] PCP - General Internal Medicine 02/06/20 Christy Moreland MD [address] [place] [address] Cardiology 02/06/20 Feng Jimenez DO [address] [place] [address] Internal Medicine 02/06/20 Laxmi Gunter MD [address] [place] [phone] Referring Gastroenterology 02/04/23 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 Relationship Specialty Start Date End Date Cece Hannon PA-C [address] [place] [address] PCP - General Internal Medicine 02/06/20 Christy Moreland MD [address] [place] [address] Cardiology 02/06/20 Feng Jimenez DO [address] [place] [address] Internal Medicine 02/06/20 Laxmi Gunter MD [address] [place] [phone] Referring Gastroenterology 02/04/23 Team Status: Inactive Member Role Status Dates Cece Hannon PA-C Primary Care Provider Active Start: January 15, 2024 End: January 15, 2024 Adan Julio MD Attending Provider Active Sta rt: January 15, 2024 End: January 15, 2024 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 Relationship Specialty Start Date End Date Cece Hannon PA-C PCP - General Internal Medicine 02/06/20 Christy Moreland MD [address] [place] [address] Cardiology 02/06/20 Feng Jimenez DO [address] [place] [address] Internal Medicine 02/06/20 Laxmi Gunter MD [address] [place] [phone] Referring Gastroenterology 02/04/23 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 Relationship Specialty Start Date End Date Haider Adamson MD [address] [address] PCP - General Internal Medicine 01/04/22 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 Relationship Specialty Start Date End Date Haider Adamson MD [address] [address] PCP - General Internal Medicine 01/04/22 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 Relationship Specialty Start Date End Date Haider Adamson MD [address] [address] PCP - General Internal Medicine 01/04/22 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 Relationship Specialty Start Date End Date Haider Adamson MD [address] [address] PCP - General Internal Medicine 01/04/22 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 Relationship Specialty Start Date End Date Haider Adamson MD [address] [address] PCP - General Internal Medicine 01/04/22 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 Relationship Specialty Start Date End Date Cece Hannon PA-C PCP - General Internal Medicine 02/06/20 Christy Moreland MD [address] [place] [address] Cardiology 02/06/20 Feng Jimenez DO [address] [place] [address] Internal Medicine 02/06/20 Laxmi Gunter MD [address] [place] [phone] Referring Gastroenterology 02/04/23 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 Relationship Specialty Start Date End Date Cece Hannon PA-C PCP - General Internal Medicine 02/06/20 Christy Moreland MD [address] [place] [address] Cardiology 02/06/20 Feng Jimenez DO [address] [place] [place] [address] Internal Medicine 02/06/20 Laxmi Gunter MD [address] [place] [phone] Referring Gastroenterology 02/04/23 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 Relationship Specialty Start Date End Date Cece Hannon PA-C PCP - General Internal Medicine 02/06/20 Christy Moreland MD [address] [place] [address] Cardiology 02/06/20 Feng Jimenez DO [address] [place] [address] Internal Medicine 02/06/20 Laxmi Gunter MD [address] [place] [phone] Referring Gastroenterology 02/04/23 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 Relationship Specialty Start Date End Date Haider Adamson MD [address] [address] PCP - General Internal Medicine 01/04/22 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 Relationship Specialty Start Date End Date Cece Hannon PA-C PCP - General Internal Medicine 02/06/20 Christy Moreland MD [address] [place] [place] [address] Cardiology 02/06/20 Feng Jimenez DO [address] [place] [place] [address] Internal Medicine 02/06/20 Laxmi Gunter MD [address] [place] [phone] Referring Gastroenterology 02/04/23 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 Relationship Specialty Start Date End Date Haider Adamson MD [address] [address] PCP - General Internal Medicine 01/04/22 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 Relationship Specialty Start Date End Date Haider Adamson MD [address] [address] PCP - General Internal Medicine 01/04/22 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 Relationship Specialty Start Date End Date Haider Adamson MD [address] [address] PCP - General Internal Medicine 01/04/22 Goals (unrecognized section and content) Goals may be documented in a n alternate section FOR RECORDS PERTAINING TO PATIENTS WHO ARE OR HAVE BEEN ENROLLED IN A CHEMICAL DEPENDENCY/SUBSTANCEABUSE PROGRAM, SOME INFORMATION MAY BE OMITTED. This clinical summary was aggregated from multiple sources. Caution should be exercised in using it in the provision of clinical care. This summary normalizes information from multiple sources, and as a consequence, information in this document may materially change the coding, format and clinical context of patient data. In addition, data may be omitted in some cases. CLINICAL DECISIONS SHOULD BE BASED ON THE PRIMARY CLINICAL RECORDS. [employer] [facility]. provides no warranty or guarantee of the accuracy or completeness of information in this document.
== END 2024-10-30 09:55 | disposition home or self-care (01) ==
LOC: CARD 09:54
PROVIDERS: Visit Provider Nurse Practitioner Family
DX: I71.21 Aneurysm of the ascending aorta, without rupture (principal)
CPT/HCPCS: 93306

== ENCOUNTER 2025-02-07 13:48 | Outpatient (OUT) | payer MEDICARE, SELFPAY ==
--- OUTSIDE RECORDS SUMMARY | 2025-02-07 13:56 | XMS_ITS | CCD ---
Author Organization [facility]iniSyn[facility] Care Team Providers Care Tester Sound Name Role Phone SELF, REFERRED Referring Unavailable SELF, REFERRED Primary Care Unavailable UNKNOWN, PROVIDER Attending Unavailable UNKNOWN, PROVIDER Admitting Unavailable Cece Hannon Primary Care Provider Christy Moreland Unavailable Barbara HARRINGTON Feng P Unavailable Adan Julio Unavailable Shiva Garcia Unavailable CECE HANNON Primary Care Physician LINDA Hannon Primary Care Provider [phone] MD Yanni Nassar Attending Provider LAYNE SANTANA Admitting Unavailable LAYNE SANTANA Attending Unavailable [place], DR SHIVA Hughes Consulting Unavailable [facility] [place] VAUGHN Primary Care Unavailable LAYNE SANTANA Consulting Unavailable LINDA Hannon Primary Care Provider MD Yanni Nassar Attending Provider [phone] DELORIS Alvarez Emergency Provider [phone] Cece Hannon Primary Care Provider Christy Moreland Unavailable [phone] Feng Jimenez DO P Unavailable [phone] Tom Torres Unavailable LINDA Hannon Primary Care Provider MD Dennis Clark Emergency Provider [phone] Asaad, Imad Unavailable Cece Hannon PA-C Primary Care Provider Aniceto COLÓN, Christy Valdivia Unavailable [phone] Jani COLÓN, Imad Unavailable LINDA Hannon Primary Care Provider MD Adan Julio Attending Provider Parvez MCKEON, Cece Coleman Primary Care Provider Adan Julio Admitting Unavailable Adan Julio Attending Unavailable Cece Hannon Primary Care Unavailable Cece Hannon Primary Care Unavailable Dennis Clark Admitting Unavailable Dennis Clark Attending Unavailable MARTINE BOWLING Attending Unavailable MARTINE BOWLING Referring Unavailable CECE HANNON Primary Care Unavailable QUILESVERONICA Alvarado Referring Unavailable HANNONCECE RODRIGUEZ Primary Care Unavailable BOY SESAY Attending Unavailable HAIEDR ADAMSON Referring Unavailable BREANN ADAMSONI Primary Care Unavailable Parvez MCKEON, Cece Coleman Primary Care Provider Haider Adamson MD Primary Care Provider CAROL COTTRELL Attending Unavaila ble CECE HANNON Referring Unavailable HANNONCECE RODRIGUEZ Primary Care Unavailable MARTINE BOWLING Attending Unavailable CECE HANNON Referring Unavailable HANNONVINAYA N Primary Care Unavailable QUILESVERONICA Alvarado Referring Unavailable HANNONVINAY RODRIGUEZA N Primary Care Unavailable MARTINE BOWLING Referring Unavailable CECE HANNON Primary Care Unavailable MARTINE BOWLING Attending Unavailable CECE HANNON Primary Care Unavailable SIENNA, CHECO Referring Unavailable HANNONVINAYA N Primary Care Unavailable STEF MICHELE Attending Unavailable ANGÉLICA ALLRED Referring Unavailable HANNONCECE RODRIGUEZ Primary Care Unavailable KAMARIU, CHECO Referring Unavailable VINAY HANNONA N Primary Care Unavailable GARDENIA GUPTA Attending Unavailable ANGÉLICA ALLRED Referring Unavailable HANNONVINAYA Roxy Primary Care Unavailable QUILESVERONICA Alvarado Attending Unavailable PARVEZ CECE N Referring Unavailable HANNON, CECE N Primary Care Unavailable NONE, XXXX Referring Unavailable MD Yanni Nassar Admitting Unavailable MD Yanni Nassar Attending Unavailable MD Yanni Nassar Attending Unavailable MD Yanni Nassar Referring Unavailable MD Yanni Nassar Admitting Unavailable NarrHaider malik MD Primary Care Provider [phone] MARTINE BOWLING Referring Unavailable HANNON, CECE N Primary Care Unavailable HANNONCECE Referring Unavailable NARRA, HAIDER Primary Care Unavailable Luis Eduardo Rivero Attending Unavailable NARRA, HAIDER Primary Care Unavailable Luis Eduardo Rivero Admitting Unavailable Hannon PAC, Cece N Primary Care Unavailable Hannon PAC, Cece N Admitting Unavailable Hannon PAC, Cece N Attending Unavailable Hannon PAC, Cece N Primary Care Unavailable Hannon PAC, Cece N Admitting Unavailable Hannon PAC, Cece N Attending Unavailable Hannon PAC, Cece N Primary Care Unavailable Adan Julio Admitting Unavailab amie Felter, Adan Perez Attending Unavailab le NARRA, HAIDER Primary Care Unavailable Adan Julio Admitting Unavailab amie Astorgaer, Adan Perez Attending Unavailab Kevin Natarajan Attending Unavailable NARRA, HAIDER Primary Care Unavailable Veronica Geller Attending Unavailab le Hannon PAC, Cece N Primary Care Unavailable Hannon PAC, Cece N Primary Care Unavailable Le, Melvin K Attending Unavailable Darin Murphy Attending Unavailable NARRA, HAIDER Primary Care Unavailable NARRA, HAIDER Primary Care Unavailable Kashk, Nehemiah I Admitting Unavailable Kashk, Nehemiah I Attending Unavailable NARRA, HAIDER Primary Care Unavailable Le, Melvin K Admitting Unavailable Le, Melvin K Attending Unavailable CECE HANNON Attending Unavailable NARRA, HAIDER Referring Unavailable NARRA, HAIDER Primary Care Unavailable CECE HANNON Attending Unavailable NARRA, HAIDER Referring Unavailable NARRA, HAIDER Primary Care Unavailable CECE HANNON Attending Unavailable NARRA, HAIDER Referring Unavailable NARRA, HAIDER Primary Care Unavailable CECE HANNON Attending Unavailable NARRA, HAIDER Referring Unavailable NARRA, HAIDER Primary Care Unavailable CECE HANNON Attending Unavailable NARRA, HAIDER Referring Unavailable NARRA, HAIDER Primary Care Unavailable LAYNE SANTANA Attending Unavailable CHIRAG ORLANDO Attending Unavailable Allergies Allergy ClassificationReported Allergen(s)Allergy TypeDate of OnsetReaction(s) FacilityAspirin (3 sources)AspirinDrug AllergyUnknownCleveland ClinicCephalosporins (antibiotic) (6 sources)Cephalexin; Translations: [cephalexin]Drug Exfcwum24-80-6193SzkwhTubCommunity Regional Medical Center Repositoryheparin (3 sources)heparin; Translations: [heparin]Drug Banxfqt55-79-4278Eughfya ReactionThe [facility] RepositoryNSAIDs (1 source)NSAIDs; Translations: [NSAIDS (NON-STEROIDAL ANTI-INFLAMMATORY DRUG)] Drug Euialmh61-31-1358Kfl [facility] Repository Penicillins (antibiotic) (6 sources)Penicillins; Translations: [Penicillins]Drug Mjcrenv02-42-8668Kdryc [facility] Repository (20 sources)Aspirin; Translations: [ASPIRIN]Drug Dtnveen00-65-3712Tgvcpwj [facility] (20 sources)Cephalexin; Translations: [cephalexin]Drug Idxqzeo83-01-1331Yrwdq, Other (See Comments)[facility] Work Phone: (20 sources)Penicillin G; Translations: [PENICILLIN G]Drug Vorulwp62-32-0217 [facility] Work Phone: (20 sources)Heparin Analogues; Translations: [HEPARIN ANALOGUES]Drug Allergy 39-73-3467VxmrpxvVcvimidzz Clinic (10 sources)heparinDrug AllergyButler Hospital [email or web address] Other (10 sources)penicillAMINEDrug AllergySelect Medical [facility] [email or web address] Other (17 sources)Penicillin; Translations: [penicillin]Drug AllergyUnknow, [facility] (11 sources)Heparin CombinationDrug allergyButler Hospital [email or web address] Other (7 sources)Cephalexin; Translations: [Keflex]Drug Qhzhysd58-65-1626nifstXmb [facility] Repository (20 sources)heparin; Translations: [heparin]Drug Roxnrgw85-26-9072zoyjqlwb, Unknown ReactionCoshocton Regional Medical Center (20 sources)Penicillins; Translations: [PENICILLINS]Allergy to substance 64-57-2937Gvpgg, Other (See Comments)[facility] (1 source)heparinDrug Swefork79-52-3468Ubh [facility] Repository (1 source)PenicillinDrug Bipvdog86-23-9865Klt [facility] Repository (19 sources)heparin; Translations: [HEPARIN (PORCINE)]Drug Ewmrlzw04-19-4298 Other (See Comments)[facility] Repository (1 source)NSAIDs; Translations: [NSAIDs]Propensity to adverse reactions to drug (disorder)[facility] Repository (1 source)NSAIDs; Translations: [NSAIDS (NON-STEROIDAL ANTI-INFLAMMATORY DRUG)] Propensity to adverse reactions to drug (disorder)97-84-7076DyhvptgyywMarietta Osteopathic Clinic Repository Medications Current Medications MedicationDrug Class(es)DatesSig (Normalized)Sig (Original)[id number] 200 actuat albuterol 0.09 mg/actuat metered dose inhaler (20 sources)beta2-Adrenergic AgonistStart: 16-09-7332ishg 2 puff(s) by inhalation in the morningalbuterol (PROVENTIL HFA;VENTOLIN HFA) 90 mcg/actuation inhaler Inhale 2 puffs in the morning and 2puffs before bedtime. 18 g 3 12/23/2024 ActiveStart: 08-79-5993oxsh 2 puff(s) by mouth four times daily for wheezingVENTOLIN HFA 90 mcg/actuation inhaler inhale 2 puffs by mouth four times a day if needed for wheezing or shortness of breath 18 g 3 11/06/2018 Active Start: 80-41-8682hnohjeqrn HFA (PROVENTIL HFA, VENTOLIN HFA) 90 mcg/actuation inhaler Ventolin HFA 90 mcg/actuation aerosol inhaler 11/06/2018 ActiveStart: 39-55-2956gwhmkugvk HFA (PROVENTIL HFA, VENTOLIN HFA) 90 mcg/actuation inhaler Ventolin HFA 90 mcg/actuation aerosol inhaler 0 11/06/2018 ActiveStart: 05-45-3154Bhqtv: 07-30-2009 End: 36-53-7492ewxf 2 puff(s) by inhalation in the morningalbuterol (PROVENTIL HFA;VENTOLIN HFA) 90 mcg/actuation inhaler Inhale 2 puffs in the morning and 2 puffs before bedtime. 12/23/2024 Discontinued (Reorder)Comment on above:Ventolin HFA 90 mcg/actuation aerosol inhalerapixaban 2.5 mg oral tablet (20 sources)Factor Xa InhibitorStart: 06-13-2017 End: 96-47-8004gzzm 1 tablet by mouth in the morning, then take 1 tablet by mouth at bedtimeapixaban (ELIQUIS) 2.5 mg tablet Take 1 tablet (2.5 mg total) by mouth in the morning and 1 tablet (2.5 mg total) before bedtime. 04/23/2018 Activetake 1 tablet by mouth every twelve hoursEliquis 5 MG 1 tablet Orally bid ActiveComment on above:Take 1 tablet by mouth twice daily.take 1 tablet by mouth twice a dayTake 1 tablet by mouth two times a day.Aspir-81 81 MG (9 sources)take 1 tablet by mouth once dailyAspir-81 81 MG 1 tablet Orally Once a day Activeaspirin 81 mg oral tablet (20 sources)Platelet Aggregation Inhibitor, Nonsteroidal Anti-inflammatory Drug Start: 75-35-0859ibap 1 tablet by mouth once dailyaspirin 81 mg oral tablet 81 mg = 1 tab(s), Oral, Daily, Refills(s) 0 Start Date: 09/20/19 Status: Ordered Repeat number: 1Start: 06-13-2017 End: 29-60-4672yxlk 1 tablet by mouth once dailyaspirin 81 mg Indications: Coronary artery disease involving [place] coronary artery of [place] heartwithout angina pectoris Take 1 tablet (81 mg total) by mouth daily. 90 tablet 3 11/28/2017 Activeaspirin 81 mg chewable tablet q 24 HR. ActiveComment on above:q 24 HR.atorvastatin 40 mg oral tablet (20 sources)HMG-CoA Reductase InhibitorStart: 06-13-2017 End: 89-05-3053wrqs 1 tablet by mouth in the morningatorvastatin (LIPITOR) 40 mg tablet Indications: Mixed hyperlipidemia TAKE ONE TABLET BY MOUTH IN THE MORNING 90 tablet 1 09/11/2024 ActiveLipitor ActiveComment on above:Take 40 mg by mouth once daily.azithromycin 250 mg oral tablet (2 sources)Macrolide AntimicrobialStart: 04-18-2024 End: 02-23-6139njwpumqjrlly (ZITHROMAX) 250 mg tablet Take 2 tablets the first day, then 1 tablet daily for 4 days. 6 tablet 04/18/2024 04/23/2024 Active benzonatate 200 mg oral capsule (4 sources)Non-narcotic AntitussiveStart: 12-23-2024 End: 21-56-5369zdbf 1 capsule by mouth three times daily as needed for cough benzonatate (TESSALON PERLES) 200 mg capsule Indications: Viral URI with cough Take 1 capsule (200 mg total) by mouth 3 (three) times a day as needed for cough for up to 10 days. 30 capsule 12/23/2024 01/02/2025 ActiveStart: 04-18-2024 End: 56-91-9861ducw 1 capsule by mouth three times daily as needed for cough benzonatate (TESSALON PERLES) 200 mg capsule Take 1 capsule (200 mg total) by mouth 3 (three) timesa day as needed for cough for up to 10 days. 30 capsule 04/18/2024 04/28/2024 Activeblood-glucose meter (ONETOUCH ULTRA2 METER) misc (15 sources)Start: 53-81-5347ynapk-glucose meter (ONETOUCH ULTRA2 METER) misc USE TO CHECK GLUCOSE TWICE DAILY 1 each 02/26/2024ctivebusPIRone hydrochloride 10 mg oral tablet (20 sources)Start: 01-04-2024 End: 71-17-7304mijw 1 tablet by mouth three times dailybusPIRone (BUSPAR) 10 mg tablet Indications: FERNY (generalized anxiety disorder) Take 1 tablet (10 mg total) by mouth 3 (three) times a day. 90 tablet 5 12/23/2024 ActiveStart: 76-84-1603xwal 1 tablet by mouth every eight hoursbusPIRone 15 mg Tab 15 mg = 1 tab(s), Oral, q8hr, Refills(s) 0 Start Date: 09/20/19 Status: Ordered Repeat number: 1Start: 11-05-2018 End: 20-21-0037avtp 0.6782261211493332 tablet by mouth three times daily busPIRone HCl 30 mg tablet take 1/3 tablet by mouth three times a day 0 11/05/2018 08/02/2023 DiscontinuedStart: 06-13-2017 End: 95-07-0536cmas 1 tablet by mouth three times dailybusPIRone (BUSPAR) 10 mg tablet Take 10 mg by mouth three times a day. 0 06/13/2017 10/03/2023 Active Start: 06-13-2017 End: 91-63-6564fugi 1 tablet by mouth twice dailyBuspirone 10 mg Tablet Discontinued 10 MG PO Twice daily June 12, 2017 11:00pm July 25, 2023 6:10am Comment on above:take 1/3 tablet by mouth three times a daycetirizine hydrochloride 10 mg oral tablet (20 sources)Histamine-1 Receptor AntagonistStart: 97-32-3593pqxo 1 tablet by mouth in the morningcetirizine (ZyrTEC) 10 mg tablet Indications: Allergic rhinitis Take 1 tablet (10 mg total) by mouth in the morning for 30 days. 30 tablet 5 07/28/2022 ActiveComment on above:Take 10 mg by mouth.cholecalciferol 0.05 mg oral capsule (20 sources)Vitamin DStart: 09-98-6943mksd 1 capsule by mouth once in the morningcholecalciferol, vitamin D3, (VITAMIN D3) 2,000 units capsule Indications: Vitamin D insufficiency Take 1 capsule (2,000 Units total) by mouth in the morning. 90 capsule 3 12/27/2022 ActiveStart: 52-24-1301omwz 1 capsule by mouth once dailyCholecalciferol (Vitamin D3) (Vitamin D3) 25 mcg (1,000 unit) Capsule Active 25 MCG PO Daily January 18, 2021 12:00amColestipol (18 sources)Bile Acid SequestrantStart: 06-47-9235egud 1 tablet by mouth once dailycolestipol 1 g oral tablet 1 gm = 1 tab(s), Oral, Daily Start Date: 01/06/22 Status: Ordered Repeatnumber: 1Start: 64-77-4155rssc 1 tablet by mouth once dailycolestipol 1 g oral tablet 1 gm = 1 tab(s), Oral, Daily Start Date: 01/06/22 Status: OrderedStart: 07-13-2021 End: 55-06-8540Tgfzxdpbob 1 gram tablet Discontinued 1 GM PO Daily July 12, 2021 11:00pm July 25, 2023 6:10amStart: 03-31-2021 End: 11-36-2220dxgdahxybu (COLESTID) 1 gram tablet Take 2 g by mouth. 0 03/31/2021 03/25/2022 DiscontinuedStart: 01-90-4213ystq 2 tablets by mouth every twenty-four hoursColestipol HCl 1 GM 2 tablets Orally Once a day for 30 days Jan, ActiveComment on above:Take 2 g by mouth.Comp.Stocking,Thigh,Long,X- Lrg misc (20 sources)Start: 70-72-2475Awnl.Stocking,Thigh,Long,X-Lrg misc Wear stocking daily 1 Each 0 11/16/2015 ActiveComment on above:Wear stocking daily cyclobenzaprine hydrochloride 10 mg oral tablet (2 sources)Muscle RelaxantStart: 40-61-6992qric 1 tablet by mouth twice daily as needed for muscle spasmsCyclobenzaprine 10 mg tablet Active 10 MG PO Twice daily as needed for muscle spasm October 10, 2023 11:00pmStart: 69-85-5942cbxl 0.5-1 tablets by mouth every eight hoursCyclobenzaprine HCl 10 MG 1/2 to 1 tablet Orally Every 8 hours for 14 days Oct, Activedesvenlafaxine 100 mg oral tablet (3 sources)Serotonin and Norepinephrine Reuptake InhibitorStart: 36-76-8181nhxm 1 tablet by mouth once dailyPristiq 100 mg oral tablet, extended release 100 mg = 1 tab(s), Oral, Daily, tab(s), Refills(s) 0 Start Date: 02/19/10 Status: Ordered Repeat number: 1Start: 93-78-8764lpwa 1 tablet by mouth once daily Pristiq 100 mg oral tablet, extended release 100 mg = 1 tab(s), Oral, Daily, tab(s), Refills(s) 0 Start Date: 02/19/10 Status: Ordereddextromethorphan hydrobromide 10 mg / guaiFENesin 200 mg oral capsule (3 sources)Uncompetitive R-vrdfcf-Y-aspartate Receptor Antagonist, Sigma-1 AgonistStart: 12-23-2024 End: 16-41-8399yane 1 capsule by mouth every six hoursdextromethorphan- guaiFENesin (CORICIDIN HBP CHEST RUDDY-COUGH) 10-200 mg capsule Indications: Viral URI with cough Take 1 capsule by mouth every 6 (six) hours for 5 days. 20 each 12/23/2024 5Activeempagliflozin 25 mg oral tablet (20 sources)Sodium-Glucose Cotransporter 2 InhibitorStart: 01-04-2024 End: 91-54-1487ngot 1 tablet by mouth once daily in the morningempagliflozin (JARDIANCE) 25 mg tablet tablet TAKE ONE TABLET BY MOUTH EVERY MORNING 90 tablet 1 09/11/2024 Activeenteric contrast (will be provided with radiology test) (20 sources)Start: 52-74-5542hkfmxqr contrast (will be provided with radiology test) For CT ABD/PEL W IVCON Routine order Administer, As Directed One Time Only, via Oral, Rectal, both Oral and Rectal, Enteric Tube, Stoma or Indwelling Catheter, Enteric Contrast as designated per enteric contrast guidelines 1 Each 03/25/2022 ActiveStart: 30-57-5081klbwukx contrast (will be provided with radiology test) For CT ABD/PEL W IVCON Routine order Administer, As Directed One Time Only, via Oral, Rectal, both Oral and Rectal, Enteric Tube, Stoma or Indwe lling Catheter, Enteric Contrast as designated per enteric contrast guidelines 1 Each 0 03/25/2022 ActiveComment on above:For CT ABD/PEL W IVCON Routine order Administer, As Directed One Time Only, via Oral, Rectal, both Oral and Rectal, Enteric Tube, Stoma or Indwelling Catheter, Enteric Contrast as designated per enteric contrast guidelinesfluconazole 150 mg oral tablet (1 source)Azole AntifungalStart: 08-27-2024 End: 35-11-3987bvrq 1 tablet by mouth oncefluconazole (DIFLUCAN) 150 mg tablet Take 1 tablet (150 mg total) by mouth once for 1 dose. 1 tablet 08/27/2024 08/27/2024 Activefluticasone furoate 0.0275 mg/actuat metered dose nasal spray (20 sources)CorticosteroidStart: 30-26-2041Lhadbqmctbc Furoate 27.5 mcg/actuation nasal spray fluticasone Fluticasone Furoate Active 1 SPRAY In tranasal Daily June 13, 2017 7:29am 06-13-2017 [facility] ([id number]) 06/13/2017ActiveStart: 78-60-0163Uxpndcdpwwc Furoate 27.5 mcg/actuation [place],Suspension Active 1 SPRAY INTRANASAL Daily as needed for Allergy Symptoms June 12, 2017 11:00pmComment on above:fluticasone Fluticasone Furoate Active 1 SPRAY Intranasal Daily June 13, 2017 7:29am 06-13-2017 [facility] ([id number])Fluticasone Furoate 27.5 MCG/SPRAY (9 sources)take 1 puff(s) nasal route once daily as neededFluticasone Furoate 27.5 MCG/SPRAY 1 puff in each nostril Nasally Once a day PRN Activetake 1 puff(s) nasal route once dailyFluticasone Furoate 27.5 MCG/SPRAY 1 puff in each nostril Nasally Once a day ActiveglipiZIDE (7 sources)SulfonylureaglipiZIDE ActiveglyBURIDE 5 mg oral tablet (20 sources)SulfonylureaStart: 09-10-2024 End: 10-97-4102ydsQIILQI (DIABETA) 5 mg tablet 1 before breakfast and 1 before dinner 60 tablet 5 12/23/2024 ActiveStart: 11-13-2023 End: 24-95-8753naba 2 tablets by mouth in the morning, then take 2 tablets by mouth at mealtimeglyBURIDE (DIABETA) 5 mg tablet Take 2 tablets (10 mg total) by mouth in the morning and 2 tablets (10 mg total) in the evening. Take with meals. Do all this for 180 days. 360 tablet 1 11/13/2023 05/11/2024 ActiveStart: 52-27-9289qaal 2 tablets by mouth twice daily at mealtimeglyBURIDE (DIABETA) 5 mg tablet take 2 tablets by mouth twice a day with meals 0 05/04/2021 Active Start: 61-57-2509xjuy 1 tablet by mouth at mealtime, then take 3 tablets by mouth once dailyglyBURIDE (DIABETA) 5 mg tablet Take 5 mg by mouth. Takes 1 tablet with each small meal. Usually about 3 per day 05/04/2021 ActiveStart: 03-84-6907oeew 1 tablet by mouth twice daily before mealtimeglyBURIDE 2.5 mg Tab 2.5 mg = 1 tab(s), Oral, BID, before meals, # 30 tab(s), Refills(s) 0 Start Arsalan e: 10/01/20 Status: Ordered Quantity: 30.0 Unit: tab(s) Repeat number: 1Start: 44-05-9779pvlp 1 tablet by mouth once dailyglyBURIDE 2.5 mg Tab 2.5 mg = 1 tab(s), Oral, Daily, # 30 tab(s), Refills(s) 0 Start Date: 10/01/20 Status: Ordered Quantity: 30.0 Unit: tab(s) Repeat number: 1glyBURIDE ActiveComment on above:take 2 tablets by mouth twice a day with meals12 hr guaiFENesin 600 mg extended release oral tablet (4 sources)Start: 12-23-2024 End: 50-20-5450vgak 1 tablet by mouth onceguaiFENesin (MUCINEX) 600 mg tablet extended release 12hr Indications: Viral URI with cough Take 1 tablet (600 mg total) by mouth every 12 (twelve) hours for 10 days. 20 tablet 12/23/2024 01/02/2025 ActiveStart: 04-18-2024 End: 73-07-0191tncm 1 tablet by mouth onceguaiFENesin (MUCINEX) 600 mg tablet extended release 12hr Indications: Type 2 diabetes mellitus without complication, without long-term current use of insulin ([facility]) Take 1 tablet (600 mg total) by mouth every 12 (twelve) hours for 10 days. 20 tablet 04/18/2024 04/28/2024 Activeinsulin glargine 100 unt/ml injectable solution (10 sources)Insulin AnalogStart: 81-87-9225szoeyl 0.14 mL by subcutaneous injection once dailyinsulin glargine (LANTUS U-100 INSULIN) 100 unit/mL injection Inject 0.14 mL (14 Units total) underthe skin nightly. 10 mL 1 09/10/2024 ActiveStart: 08-27-2024 End: 57-60-0713upkowb 0.12 mL by subcutaneous injection once dailyinsulin glargine (LANTUS U-100 INSULIN) 100 unit/mL injection Inject 0.12 mL (12 Units total) underthe skin nightly. 10 mL 1 08/27/2024 09/10/2024 Discontinued (Reorder)Start: 68-39-9490mxvjqr 10 [IU] by subcutaneous injection once daily at bedtimeLantus 10 unit(s), SubCutaneous, Daily, at bedtime, Refills(s) 0 Start Date: 06/24/24 Status: Ordered Repeat number: 1Start: 04-18-2024 End: 09-26-5116vwvazk 0.1 mL by subcutaneous injection once dailyinsulin glargine (LANTUS U-100 INSULIN) 100 unit/mL injection Inject 0.1 mL (10 Units total) under the skin nightly for 30 days. 10 mL 1 04/18/2024 05/18/2024 Active iv contrast (will be provided with radiology test) (20 sources)Start: 71-32-8636rv contrast (will be provided with radiology test) [...] contrast administration guidelines link. 1 Each 03/25/2022 ActiveStart: 13-51-9923qm contrast (will be provided with radiology test) [...] administration guidelines link. 1 Each 0 03/25/2022 ActiveComment on above:CT ABD/PEL -Inject, intravenously, once for 1 dose.No IV access, insert saline lock prior to the beginning of sedation, infusion, injection of imaging exam. Discontinue saline lock post exam. If Pt. has a central line or IVAD, may access for administration according to line specific nursing protocol. Once exam is complete flush line and de-access according to line specific nursing protocol in theCT contrast administration guidelines link.24 hr levETIRAcetam 500 mg extended release oral tablet (20 sources)Start: 89-17-9767qcbf 3 tablets by mouth once dailylevETIRAcetam XR (KEPPRA XR) 500 mg 24 hr tablet Indications: Seizure disorder (CMS-HCC) Take 3 tablets (1,500 mg total) by mouth nightly. 90 tablet 11 01/04/2024 ActiveStart: 84-98-0032ezvc 1 tablet by mouth once daily at bedtimelevETIRAcetam XR (KEPPRA XR) 500 mg 24 hr tablet Take 1,500 mg by mouth daily at bedtime. 07/24/2018 ActiveStart: 38-84-9496ykhq 1 tablet by mouth twice dailylevETIRAcetam XR (KEPPRA XR) 500 mg 24 hr tablet Take 500 mg by mouth twice daily. 0 07/24/2018 ActiveStart: 89-96-4881vvqo 1 tablet by mouth every twelve hoursLevetiracetam (Keppra) 500 mg Tablet Active 500 MG PO Q12H June 12, 2017 11:00pmStart: 40-18-8244dsac 1000 mg by mouth at bedtimeKeppra 1,000 mg, Oral, Bedtime, Refills(s) 0 Start Date: 07/28/09 Status: Ordered Repeat number: 1Start: 38-24-6649kjff 500 mg by mouth twice dailyKeppra 500 mg, Oral, BID, Refills(s) 0 Start Date: 07/28/09 Status: Ordered Repeat number: 1Comment on above:Take 500 mg by mouth twice daily. lubiprostone 0.008 mg oral capsule (20 sources)Chloride Channel ActivatorStart: 40-34-2170lnwx 1 capsule by mouth twice daily at mealtimelubiprostone (AMITIZA) 8 mcg capsule Indications: Irritable bowel syndrome with both constipation and diarrhea Take 1 capsule by mouth two times a day with meals. 60 capsule 5 08/02/2023 Activemetoclopramide 10 mg oral tablet (4 sources)Dopamine-2 Receptor AntagonistStart: 61-33-0338xhxw 1 tablet by mouth once dailymetoclopramide 10 mg Tab 10 mg = 1 tab(s), Oral, Daily Start Date: 01/06/22 Status: Ordered Repeat number: 1take 1 tablet by mouth every twelve hoursMetoclopramide HCl 10 MG 1 tablet before meals Orally Twice a day Myabct53 hr metoprolol succinate 25 mg extended release oral tablet (20 sources)beta-Adrenergic BlockerStart: 53-81-9983maxa 1 tablet by mouth twice dailymetoprolol 25 mg ER Tab 25 mg = 1 tab(s), Oral, BID Start Date: 01/06/22 Status: Ordered Repeat number: 1Start: 93-81-7295yyjw 2 tablets by mouth in the morning, then take 2 tablets by mouth at bedtimemetoprolol tartrate (LOPRESSOR) 25 mg tablet Take 2 tablets (50 mg total) by mouth in the morning and 2 tablets (50 mg total) before bedtime. 05/10/2021 ActiveStart: 06-13-2017 End: 79-48-8223eyde 1 tablet by mouth twice dailyMetoprolol Tartrate 25 mg Tablet Active 25 MG PO Twice daily June 12, 2017 11:00pmtake 1 tablet by mouth twice dailymetoprolol tartrate, short acting, (LOPRESSOR) 50 mg tablet Take 50 mg by mouth two times a day. ActiveComment on above:twice daily. Multi For Her (1 source)Multi For Her ActiveMulti Vitamins oral tablet (4 sources)Start: 15-94-0446puld 1 tablet by mouth once dailyMulti Vitamins oral tablet 1 tab(s), Oral, Daily, Refill(s) 0 Start Date: 07/30/09 Status: Ordered Repeat number: 1Start: 83-97-6791Rspfq Vitamins oral tablet 1 tab(s), Oral, Daily, 0 Start Date: 07/30/09 Status: OrderedMultivitamins ORAL Chew (20 sources)Multivitamins ORAL Chew None Entered ActiveMultivitamins ORAL Chew None Entered 0 ActiveComment on above:None Enterednitrofurantoin, macrocrystals 25 mg / nitrofurantoin, monohydrate 75 mg oral capsule (1 source)Nitrofuran AntibacterialStart: 08-27-2024 End: 73-41-6894ilwg 1 capsule by mouth in the morning, then take 1 capsule by mouth at bedtimenitrofurantoin, macrocrystal-monohydrate, (MACROBID) 100 mg capsule Take 1 capsule (100 mg total) by mouth in the morning and 1 capsule (100 mg total) before bedtime. Do all this for 7 days. 14 capsule 08/27/2024 09/03/2024 Activepantoprazole 40 mg delayed release oral tablet (20 sources)Proton Pump InhibitorStart: 08-22-2023 End: 01-61-4314lkix 1 tablet by mouth twice dailypantoprazole DR (PROTONIX) 40 mg tablet Take 1 tablet by mouth two times a day. 60 tablet 08/22/2023 Active Start: 02-14-2023 End: 23-98-3091hqgp 1 tablet by mouth once dailyPantoprazole (Protonix) 20 mg tablet,delayed release (DR/EC) Discontinued 20 MG PO Daily February 14, 2023 12:00am July 25, 2023 6:10amStart: 02-04-2021 End: 97-24-5498qwco 1 tablet by mouth every twelve hoursPantoprazole Sodium 40 MG 1 tablet Orally BID for 30 days Jan, ActiveStart: 09-30-2019 End: 08-50-7593rhca 1 tablet by mouth once dailyPantoprazole 40 mg tablet,delayed release (DR/EC) Discontinued 40 MG PO Daily May 25, 2020 11:00pm July 13, 2021 6:11amComment on above:Take 40 mg by mouth. phenazopyridine hydrochloride 200 mg oral tablet (1 source)Start: 08-27-2024 End: 01-07-3115twmj 1 tablet by mouth three times daily as needed for muscle spasmsphenazopyridine (PYRIDIUM) 200 mg tablet Take 1 tablet (200 mg total) by mouth 3 (three) times a day as needed for bladder spasms for up to 2 days. 6 tablet 08/27/2024 08/29/2024 ActivepredniSONE 20 mg oral tablet (3 sources)Start: 40-89-0087wbyvvmEKUZ (DELTASONE) 20 mg tablet Indications: Viral URI with cough , Mild intermittent reactive airway disease without complication Take 1 AM with breakfast and 1 4pm with food. 6 tablet 12/23/2024 Activesucralfate 1000 mg oral tablet (20 sources)Aluminum ComplexStart: 08-22-2023 End: 17-01-9792ryub 1 tablet by mouth twice dailysucralfate (CARAFATE) 1 gram tablet Take 1 tablet by mouth two times a day. 60 tablet 0 08/22/2023 09/21/2023 ActiveStart: 02-14-2023 End: 15-86-0743hywr 1 tablet by mouth twice dailySucralfate (Carafate) 1 gram Tablet Discontinued 1 GM PO Twice daily 09 09February 14, 2023 12:00am July 25, 2023 6:11amStart: 00-58-9572unol 1 tablet by mouth every six hours Sucralfate 1 GM 1 tablet on an empty stomach Orally qid for 30 day(s) May, ActiveStart: 05-26-2020 End: 19-67-6614tgjc 1 tablet by mouth twice dailySucralfate (Carafate) 1 gram tablet Discontinued 1 GM PO Twice daily May 25, 2020 11:00pm July 13, 2021 6:12amtiZANidine 2 mg oral tablet (20 sources)Central alpha-2 Adrenergic AgonistStart: 44-66-4613tftm 1 tablet by mouth every eight hours as neededtiZANidine (ZANAFLEX) 2 mg tablet Take 2 mg by mouth every 8 hours as needed (neck pain). 03/21/2022 ActiveStart: 02-21-2018 End: 07-51-8730nlcp 1 tablet by mouth twice dailyTizanidine 4 mg tablet Discontinued 4 MG PO Twice daily February 21, 2018 12:00am October 09, 2019 2:32pmvitamin B12 (7 sources)Vitamin R92Okbsrgp B12 ActiveVitamin D (7 sources)Vitamin D Active Completed/Discontinued Medications MedicationDrug Class(es)DatesSig (Normalized)Sig (Original)acetaminophen 325 mg / HYDROcodone bitartrate 5 mg oral tablet (5 sources)Opioid AgonistStart: 02-10-2022 End: 29-38-5689dnrr 1 tablet by mouth twice daily as needed for painHydrocodone- Acetaminophen 5-325 mg tablet Discontinued 1 TAB PO Twice daily as needed for pain 6 February 10, 2022 July 05, 2023 9:50amamylase 367374 unt / lipase 35270 unt / protease 187294 unt delayed release oral capsule (2 sources)Start: 01-29-2020 End: 66-34-6543yzfa 1 capsule by mouth three times daily at mealtimeZENPEP 40,000-126,000- 168,000 unit cpDR take 1 capsule by mouth three times a day with meals 0 01/29/2020 03/25/2022 DiscontinuedComment on above:take 1 capsule by mouth three times a day with mealscalcium chloride 0.0014 meq/ml / potassium chloride 0.004 meq/ml / sodium chloride 0.103 meq/ml / sodium lactate 0.028 meq/ml injectable solution (1 source)Start: 08-22-2023 End: 44-61-9331szgmmjdp ringers iv abyjxzdm690 ml ciprofloxacin 2 mg/ml injection (1 source)Quinolone AntimicrobialStart: 08-22-2023 End: 53-84-4403jpgyjopbehyrw iv piggyback 400 mg in D5W 200 mL (CIPRO) dicyclomine hydrochloride 20 mg oral tablet (13 sources)AnticholinergicStart: 05-26-2020 End: 37-06-9463undx 1 tablet by mouth four times dailyDicyclomine 20 mg tablet Discontinued 20 MG PO Four times daily May 25, 2020 11:00pm July 25, 2023 6:10am End: 00-20-6178pyje 2 tablets by mouth twice daily in the eveningdicyclomine (BENTYL) 20 mg tablet Take 20 mg by mouth twice daily. 2 tabs in the AM and 2 tabs in the PM 0 03/25/2022 DiscontinuedComment on above:Take 20 mg by mouth twice daily. 2 tabs in the AM and 2 tabs in the PM docusate sodium 100 mg oral capsule (13 sources) End: 87-25-5817ojldmfiw sodium (COLACE) 100 mg capsule Take 100 mg by mouth as needed. 0 08/09/2023 Discontinued (Discontinued by Patient)Comment on above:Take 100 mg by mouth as needed.famotidine 40 mg oral tablet (12 sources)Histamine-2 Receptor AntagonistStart: 07-13-2021 End: 13-57-2491esgd 1 tablet by mouth once dailyFamotidine 40 mg tablet Discontinued 40 MG PO Daily July 12, 2021 11:00pm July 25, 2023 6:10amStart: 81-39-2847jfbd 1 tablet by mouth every twelve hoursFamotidine 40 MG 1 TABLET Orally Twice a day for 30 day(s) Apr, Bavhuo04 actuat fluticasone furoate 0.2 mg/actuat / vilanterol 0.025 mg/actuat dry powder inhaler (3 sources)Corticosteroid, beta2-Adrenergic AgonistStart: 10-23-2019 End: 53-01-7742yuyf 1 puff(s) by mouth once dailyfluticasone-vilanterol (BREO ELLIPTA) 200-25 mcg/dose inhaler inhale 1 puff by mouth and INTO THE LUNGS once daily RINSE MOUTH AND SPIT AFTER EACH USE 0 10/23/2019 06/03/2022 Discontinued (Course of therapy completed)Comment on above:inhale 1 puff by mouth and INTO THE LUNGS once daily RINSE MOUTH AND SPIT AFTER EACH USE12 hr hyoscyamine sulfate 0.375 mg extended release oral tablet (11 sources)Start: 03-25-2022 End: 87-45-5054kwxf 1 tablet by mouth twice dailyhyoscyamine SR (LEVBID) 0.375 mg 12 hr tablet Take 1 tablet by mouth twice daily. 60 tablet 2 06/03/2022 08/02/2023 DiscontinuedStart: 25-58-6214uqyq 1 tablet by mouth every twelve hoursHyoscyamine Sulfate ER 0.375 MG 1 tablet Orally every 12 hrs for 30 day(s) May, ActiveComment on above:Take 1 tablet by mouth twice daily. lansoprazole 15 mg delayed release oral capsule (15 sources)Proton Pump InhibitorStart: 08-09-2023 End: 18-70-9410fjsf 1 capsule by mouth once daily as neededlansoprazole (PREVACID 24HR) 15 mg capsule Take 1 capsule by mouth once daily as needed. 0 08/09/2023 08/22/2023 DiscontinuedStart: 03-25-2022 End: 00-88-7903hqaf 1 tablet by mouth once dailylansoprazole orally disintegrating (PREVACID) 30 mg disintegrating tablet Indications: Gastroesophag eal reflux disease with esophagitis without hemorrhage Take 1 tablet by mouth once daily. 30 tablet2 03/25/2022 08/02/2023 DiscontinuedComment on above:Take 1 tablet by mouth once daily.metFORMIN hydrochloride 500 mg / SITagliptin 50 mg oral tablet (20 sources)Biguanide, Dipeptidyl Peptidase 4 InhibitorStart: 01-04-2024 End: 64-91-2485clpk 1 tablet by mouth once in the morningsitaGLIPtin-metFORMIN (JANUMET) 50-500 mg per tablet Take 1 tablet by mouth in the morning and 1 tab let in the evening. Take with meals. Do all this for 180 days. 180 tablet 1 01/04/2024 04/18/2024 Discontinued (Alternate therapy)Start: 60-23-5919oghc 1 tablet by mouth twice daily at mealtimesitaGLIPtin-metFORMIN (JANUMET) 50-500 mg per tablet Take 1 tablet by mouth twice daily with meals.11/12/2019 Active Janumet ActiveComment on above:Take 1 tablet by mouth twice daily with meals. ondansetron 4 mg oral tablet (8 sources)Serotonin-3 Receptor AntagonistStart: 03-25-2022 End: 13-86-2102jfxswljkeuo (ZOFRAN) 4 mg tablet Indications: Gastroparesis due to DM (HCC) 1 TAB EVERY 6 HRS NEEDED 70 tablet 1 03/25/2022 06/03/2022 Discontinued (Course of therapy completed)Start: 05-26-2020 End: 58-91-9907qhuu 1 tablet by mouth every eight hours as needed for nausea and vomitingOndansetron Hcl (Zofran) 4 mg tablet Discontinued 4 MG PO Q8H as needed for nausea and vomiting May 25, 2020 11:00pm July 05, 2023 9:51amComment on above:1 TAB EVERY 6 HRS NEEDEDpregabalin 150 mg oral capsule (20 sources)Start: 06-13-2017 End: 43-64-7003vqvr 1 capsule by mouth once daily at bedtimePregabalin (Lyrica) 150 mg Capsule Discontinued 150 MG PO Daily at bedtime June 12, 2017 11:00pm July 13, 2021 6:12am End: 10-35-9375xvuq 1 capsule by mouth twice dailypregabalin (LYRICA) 150 mg capsule Take 150 mg by mouth twice daily. 0 08/22/2023 DiscontinuedComment on above:Take 150 mg by mouth twice daily.sertraline 100 mg oral tablet (20 sources)Serotonin Reuptake InhibitorStart: 10-31-2019 End: 48-19-1538gwyv 1 tablet by mouth once dailysertraline (ZOLOFT) 100 mg tablet Take 100 mg by mouth once daily. 0 10/31/2019 06/03/2022 Discontinued (Discontinued by Patient)Start: 66-36-1980urcn 1 tablet by mouth once daily Zoloft 50 mg Tab 50 mg = 1 tab(s), Oral, Daily, Refills(s) 0 Start Date: 09/20/19 Status: Ordered Repeat number: 1Zoloft ActiveComment on above:Take 100 mg by mouth once daily.traZODone hydrochloride 50 mg oral tablet (6 sources)Serotonin Reuptake InhibitorStart: 05-26-2020 End: 11-57-8423ukeu 1 tablet by mouth once daily at bedtimeTrazodone 50 mg tablet Discontinued 50 MG PO Daily at bedtime May 25, 2020 11:00pm January 18, 2021 1:40pm24 hr venlafaxine 150 mg extended release oral capsule (6 sources)Serotonin and Norepinephrine Reuptake InhibitorStart: 06-13-2017 End: 31-29-7004woeh 1 capsule by mouth once dailyVenlafaxine (Effexor Xr) 150 mg Capsule,Extended Release 24hr Discontinued 150 MG PO Daily June 12, 2017 11:00pm October 09, 2019 2:32pm Problems Active Problems Problem ClassificationProblemDateDocumented DateEpisodic/ChronicAbdominal pain (20 sources)Abdominal pain; Translations: [Unspecified abdominal pain]Onset: 02-04-2021 Resolved: 96-70-8738BepkwnykKvnbswp disorders (20 sources)Anxiety; Translations: [Anxiety disorder, unspecified]Onset: 882719-26-7035WsguvirQvbpjd; peripheral; and visceral artery aneurysms (20 sources)Ascending aorta dilatation; Translations: [Thoracic aortic ectasia] Onset: 036044-28-8997DqlkdwpOwthyu (2 sources)Mild intermittent asthma; Translations: [Mild intermittent asthma, uncomplicated]Onset: 573319-75-0599OlsvrecUkgzqau dysrhythmias (13 sources)Supraventricular tachycardia; Translations: [SVT (supraventricular tachycardia) ([facility])]Onset: 917384-23-9006PtvoxbmOmrqcsyimcd and hemorrhagic disorders (20 sources)Hypercoagulability state; Translations: [Other primary thrombophilia]Onset: 69-72-0131IbswursSkaksmjr atherosclerosis and other heart disease (20 sources)Coronary atherosclerosis; Translations: [Atherosclerotic heart disease of [place] coronary artery with other forms of angina pectoris]Onset: 05-25-2017 Resolved: 838572-40-1259EiphmahUnbudbampq and other anemia (4 sources)Rpyucz04-84-7283PcprjaagAbierkaa mellitus with complications (20 sources)Gastroparesis due to diabetes mellitus; Translations: [Type 2 diabetes mellitus with diabetic autonomic (poly)neuropathy]Onset: 07-28-2022 ChronicDiabetes mellitus without complication (1 source)Glycosuria; Translations: [Glycosuria]28-40-2481WntgyfujUfhxvrsck of lipid metabolism (20 sources)Hyperlipidemia; Translations: [Hyperlipidemia, unspecified]Onset: 373253-01-1250XiqxwwwNccitbqi; convulsions (20 sources)Seizure disorder; Translations: [Epilepsy, unspecified, not intractable, without status epilepticus]Onset: 668365-85-4913Gplhwym Epilepsy; convulsions (20 sources)Seizure; Translations: [Unspecified convulsions]50-01-9434Uwftlxho Esophageal disorders (20 sources)Gastroesophageal reflux disease; Translations: [Gastro-esophageal reflux disease without esophagitis]Onset: 02-06-2020 Resolved: 101405-93-4649YuwrtcmHbpriccad hypertension (11 sources)Hypertensive disorder; Translations: [Essential (primary) hypertension]ChronicGastritis and duodenitis (20 sources)Gastritis; Translations: [Unspecified chronic gastritis without bleeding]ChronicGastritis and duodenitis (11 sources)Gastritis; Translations: [Gastritis, unspecified, without bleeding] EpisodicMood disorders (20 sources)Major depressive disorder, single episode, unspecified; Translations: [Recurrent major depressive episodes, mild ]Onset: 05-09-2017 50-76-1989SsuymcdHmczma and vomiting (20 sources)Nausea and vomiting; Translations: [Nausea with vomiting, unspecified]Onset: 577088-80-1387MwwvjypnIpazbmbitiv chest pain (5 sources)Atypical chest pain; Translations: [Other chest pain]Onset: 679849-46-8092NudcobduJqrflvkjpvo deficiencies (20 sources)Vitamin D deficiency; Translations: [Vitamin D deficiency, unspecified]Onset: 029620-54-8789PxcgdzsRhzcd circulatory disease (15 sources)Arteriovenous fistula; Translations: [Arteriovenous fistula, acquired]Onset: 246180-81-0137TxvpdtrTkpsp connective tissue disease (5 sources)Pain in left lower limb; Translations: [Pain in left leg]02-10-2022 EpisodicOther diseases of veins and lymphatics (2 sources)Lymphedema; Translations: [Lymphedema, not elsewhere classified] Onset: 96-86-5260JuxzxhsSnayc diseases of veins and lymphatics (1 source)Peripheral venous insufficiency; Translations: [Venous insufficiency (chronic) (peripheral)]Onset: 74-16-5233OskmmxeiIqhto disorders of stomach and duodenum (5 sources)Gastroparesis syndrome; Translations: [Gastroparesis]08-02-2023 EpisodicOther gastrointestinal disorders (11 sources)Irritable bowel syndrome with diarrhea; Translations: [Irritable bowel syndrome with diarrhea]ChronicOther gastrointestinal disorders (11 sources)Irritable bowel syndrome characterized by constipation; Translations: [Irritable bowel syndrome with constipation]ChronicOther gastrointestinal disorders (13 sources)Irritable bowel syndrome; Translations: [Mixed irritable bowel syndrome]ChronicOther gastrointestinal disorders (4 sources)Irritable bowel syndrome with diarrheaOnset: 02-04-2021 Resolved: 76-88-1176DnxgugtYycpj gastrointestinal disorders (20 sources)Diarrhea; Translations: [Diarrhea, unspecified]60-71-5284Liwurjdf Other gastrointestinal disorders (11 sources)Dysphagia; Translations: [Dysphagia, unspecified]EpisodicOther gastrointestinal disorders (11 sources)Splenomegaly; Translations: [Splenomegaly, not elsewhere classified] EpisodicOther gastrointestinal disorders (11 sources)Constipation; Translations: [Constipation, unspecified]EpisodicOther liver diseases (20 sources)Steatosis of liver; Translations: [Fatty (change of) liver, not elsewhere classified]Onset: 564401-60-9327QpjgwliMybdt lower respiratory disease (20 sources)Dyspnea; Translations: [Shortness of breath]82-40-9953KyjhfvpeYlimy nervous system disorders (14 sources)Chronic pain; Translations: [Other chronic pain]09-58-8342Veaicxw Other nervous system disorders (5 sources)Other chronic pain; Translations: [Other chronic pain]Onset: 01-06-2021 Resolved: 42-92-5134DtrqjcjPynzz nervous system disorders (16 sources)Neuropathy; Translations: [Polyneuropathy, unspecified]Onset: 282960-25-3928PwcvdmrNellj nervous system disorders (1 source)Polyneuropathy, unspecified; Translations: [Polyneuropathy, unspecified]Onset: 21-31-6214IkdnbgxKakcf nutritional; endocrine; and metabolic disorders (20 sources)Morbid obesity; Translations: [Morbid (severe) obesity due to excess calories]Onset: 974473-78-0508AckthruZjypv nutritional; endocrine; and metabolic disorders (20 sources)Body mass index 40+ - severely obese; Translations: [Morbid (severe) obesity due to excess calories]Onset: 524483-66-4544XuwzmyxNhtzn nutritional; endocrine; and metabolic disorders (17 sources)Obese class II; Translations: [Obesity, unspecified]Onset: 715768-27-3236OrjjhjlZcclu nutritional; endocrine; and metabolic disorders (16 sources)Cholesterol level - finding; Translations: [Lipoprotein deficiency] Onset: 244457-22-2174AqvdyftEoctl nutritional; endocrine; and metabolic disorders (1 source)Lipoprotein deficiency; Translations: [Lipoprotein deficiency]Onset: 08-49-3756EpexvzxKggoq screening for suspected conditions (not mental disorders or infectious disease) (4 sources)Patient encounter status; Translations: [Encounter for screening mammogram for malignant neoplasm of breast]Onset: 819842-93-2550Syfttdck Other upper respiratory disease (15 sources)Allergic rhinitis; Translations: [Allergic rhinitis, unspecified] Onset: 461343-87-8120TmwufphNceqh upper respiratory infections (4 sources)Acute maxillary sinusitis; Translations: [Acute maxillary sinusitis, unspecified]Onset: 863938-58-0339CefoiboxQwcxvnrmaa and visceral atherosclerosis (20 sources)Peripheral vascular disease; Translations: [Peripheral vascular disease, unspecified]19-27-0460UhmxrrpXzulcwomidd disorders (16 sources)Mood swings; Translations: [Borderline personality disorder]Onset: 031640-49-1360IldvjsmWyytyhwyqqp; intervertebral disc disorders; other back problems (20 sources)Cervical spondylosis without myelopathy; Translations: [Spondylosis without myelopathy or radiculopathy, cervical region]Onset: 06-15-2017 Resolved: 29-94-7057NeeltobZijjngv and strains (1 source)Strain of muscle, fascia and tendon of the posterior muscle group at thigh level, right thigh, initial encounterEpisodicThyroid disorders (20 sources)Thyroid nodule; Translations: [Nontoxic single thyroid nodule]Onset: 112538-82-2969ZblbicuFmdjnshkvbae (2 sources)Aneurysm of the ascending aorta, without rupture; Translations: [Aneurysm of the ascending aorta, without rupture]Onset: 60-80-2993Yqgqbzehncpg (1 source)Supraventricular tachycardia, unspecified; Translations: [Supraventricular tachycardia, unspecified]Onset: 48-44-9407Ymfjqrxcvpkh (1 source)wellnessOnset: 01-04-2024 Past or Other Problems Problem ClassificationProblemDateDocumented DateEpisodic/ChronicBlindness and vision defects (15 sources)Presbyopia; Translations: [Presbyopia]Onset: EpisodicDeficiency and other anemia (16 sources)Iron deficiency anemia; Translations: [Iron deficiency anemia, unspecified]Onset: 163009-57-2707BmjdiuolQjqugetywc and other anemia (15 sources)Iron deficiency anemia secondary to inadequate dietary iron intake; Translations: [Other iron deficiency anemias]Onset: 05-09-2017 Resolved: 136347-10-9310HhhocakbSbxecekgme and other anemia (1 source)Iron deficiency anemia, unspecified; Translations: [Iron deficiency anemia, unspecified]Onset: 87-63-4491XiferwvyQxtockks mellitus without complication (20 sources)Type 2 diabetes mellitus without complication; Translations: [Type 2 diabetes mellitus without complications]Onset: 05-23-2017 Resolved: 882587-58-6176KzvduerGhxrgufsuiosc symptoms and ill-defined conditions (5 sources)Scalding pain on urination ; Translations: [Dysuria]Onset: 08-27-2024 89-30-1218XtxqajetIzvnocqc; including migraine (15 sources)Migraine without aura, not refractory ; Translations: [Migraine without aura, not intractable, without status migrainosus]Onset: 05-09-2017 Resolved: 847646-73-7133PfsfgcgUcqgjndhwssqo and screening for infectious disease (1 source)Encounter for immunization; Translations: [Encounter for immunization] Onset: 34-93-6112AiyuhundMwwh disorders (15 sources)Mood disordersOnset: 01-02-2024 Resolved: 003118-70-2396Ajcnjwqxbhx deficiencies (17 sources)Cobalamin deficiency; Translations: [Deficiency of other specified B group vitamins]Onset: 790082-15-1545EqezxrqjJwler aftercare (20 sources)Drug therapy finding; Translations: [intermediate (current) use of anticoagulants]Onset: 789661-17-3422SrduhereSknxc and unspecified benign neoplasm (15 sources)Thyroid adenoma; Translations: [Benign neoplasm of thyroid gland] Onset: 05-22-2017 Resolved: 676971-41-5657TnyqebshPrgdo circulatory disease (20 sources)Vascular disorder; Translations: [Unspecified disorder of circulatory system]Onset: 01-86-2666PfsvylneEmgwf circulatory disease (1 source)Unspecified disorder of circulatory system; Translations: [Unspecified disorder of circulatory system]Onset: 90-82-6969BdbqwddpHjrhe diseases of kidney and ureters (6 sources)Cyst of kidney; Translations: [Cyst of kidney, acquired]Onset: 522124-10-0421UchofflbLvrpp disorders of stomach and duodenum (4 sources)Gastroparesis; Translations: [Gastroparesis due to DM (HCC) (HCC)] Onset: 13-58-7548WsxpevcqCyfcf gastrointestinal disorders (1 source)Diarrhea, unspecifiedOnset: 06-21-2021 Resolved: 18-85-4377KqmongbfAdbnn infections; including parasitic (20 sources)Personal history of other infectious and parasitic diseases; Translations: [History of COVID-19]Onset: 695502-15-3838NuklmzkfEjvqo injuries and conditions due to external causes (15 sources)Delayed healing of wound; Translations: [Other injury of unspecified body region, subsequent encounter]Onset: 07-24-2018 Resolved: 077511-42-9627GsnecqhpIxfiu lower respiratory disease (4 sources)Shortness of breath; Translations: [SHORTNESS OF BREATH]Onset: 73-86-3039KrjpeonfTgmpw lower respiratory disease (15 sources)Persistent cough; Translations: [Persistent cough]Onset: 07-25-2018 Resolved: 107152-72-2547UsequfdrGvtyt nutritional; endocrine; and metabolic disorders (15 sources)Body mass index 30+ - obesity; Translations: [Body mass index (BMI) 38.0-38.9, adult]Onset: 05-09-2017 Resolved: 737964-91-5320UxmtmboTxbdr nutritional; endocrine; and metabolic disorders (20 sources)Severe obesity; Translations: [Morbid (severe) obesity due to excess calories]Onset: 11-24-2017 Resolved: 492407-15-6277EpmapbtBfnje upper respiratory infections (20 sources)Sinusitis; Translations: [Chronic sinusitis, unspecified]Onset: 06-08-2017 Resolved: 637939-93-2070FhuyakaYqkilwvrq; thrombophlebitis and thromboembolism (20 sources)H/O: Deep vein thrombosis; Translations: [Personal history of other venous thrombosis and embolism]Onset: 05-25-2017 Resolved: 311964-77-1199UwdgfrkpVvjusuazujy; intervertebral disc disorders; other back problems (20 sources)Pain in cervical spine; Translations: [Cervicalgia]Onset: 01-06-2021 Resolved: 19-82-9906YxpmzvwrLkdwtnudxapp (15 sources)Onset: 092252-94-9376Yzlfwsvwbnsh (1 source)Aneurysm of the ascending aorta, without rupture; Translations: [Aneurysm of the ascending aorta, without rupture]Onset: 29-23-3445Kjwcr infection (15 sources)Disease caused by 2019-nCoV; Translations: [COVID-19]Onset: 02-14-2020 Resolved: 685647-61-3651Hdmvzizr Results Test NameValueInterpretationReference RangeFacilityOffice Visiton 01-01-2025 Follow-up [id number] Naila Beltran 1970 F Date Provider Department [place] 01/01/2025 [facility] Family History Problem Relation Age of Onset Heart failure Mother Valvular heart disease Mother Family Status - Relation Status Age at Mother Father Alive Level of Service:12128 [place] OFFICE/OUTPATIENT NEW MODERATE MDM 45 MINUTESNormal [facility]36on [id number] to call this patient to get a little more information about her upcoming appointment on 01/01. LM asking for her to return call for a little more information, as I do not have a referral or any records for her for this appointment. Patient called back super upset stating she has been a patient of ours, and we have lost all of her files. She states she has seen [facility] for things. I advised her I will try to get these records for her appointment tomorrow.NormalUnUniversity Hospitals St. John Medical CenterPOCT Xpert, Xpress CoV-2, FLU(Cepheid)on 88-29-5181Clznubtz Poct Influenza A CepheidNegativeNegative [facility] SystemExternal Poct Influenza B CepheidNegativeNegative [facility] GbkgwkVMPN-ZyB-3 (COVID-19) RNA EVA+probe Ql (Unsp spec) NegativeNegativeProMedica Madison Health SystemProMedisc Health SystemPhysical Therapy Noteon 27-41-9167Ppnbkzbt Therapy Note [id number]#1.00OTGTIFFUK HealthcareOffice Visiton 77-93-8687Goprea-up [id number] Naila Beltran 1970 F Date Provider Department Center 11/12/2024 [facility]NE HERNANDEZ [facility] Family History Problem Relation Age of Onset Heart failure Mother Valvular heart disease Mother Family Status - Relation Status Age at Mother Father Alive Level of Service:83032 [place] OFFICE/OUTPATIENT ESTABLISHED MOD MDM 30 MIN Reason for Visit and Comments: Follow-up [410075] - 1 year routine follow up with Echo. Patient states she is still having chest, shoulder and back pain. Recently at [facility] ER for chest pain Coronary Artery Disease [187] Hyperlipidemia [182] Aneurysm of thoracic aorta [Other] SVT [Other] Cerebrovascular disease [Other] Shortness of Breath [876189][facility] SouthCoding Summaryon 87-66-9092Rpwgfk SummaryHTMLBase 64 YqltyxiwFCu5bXc+PGhlYWQ+GB0NFBNwR54tdQWcwA1vP5ILVDtGFszwJHKMZUdZLzTfmxNiCP5dyNNb ZXJu [file] cHN (more content not included)...NormalUniversity Hospitals [facility] Standardon 59-88-5640iWXM Non AA>60Invalid Interpretation [facility] HospitalComment on above:Performed By: #### [id number], [id number], [id number], [id number], [id number], [id number] ####[facility] (DEFAULT)[address] [place] [address] 96134cNBK AA>60Invalid Interpretation [facility] HospitalComment on above:Performed By: #### [id number], [id number], [id number], [id number], [id number], [id number] ####[facility] (DEFAULT)[address] [place] [address] 57675Yceriyd [Mass/Vol]3.8 g/dLNormal3.5-5.0[facility] HospitalComment on above:Performed By: #### [id number], [id number], [id number], [id number], [id number], [id number] ####[facility] (DEFAULT)[address] [place] [address] 86959Zlkccgq/Globulin [Mass ratio]1.1 {ratio}Low1.4-2.6Mmercy health [facility] HospitalComment on above:Performed By: #### [id number], [id number], [id number], [id number], 5183513114, [id number] ####[facility] (DEFAULT)[address] [place] [address] 85725Xbt Phos90 IU/TUppfig83-73Evmdxgbf HospitalComment on above:Performed By: #### [id number], [id number], 3611301180, 1549862602, 0619544298, [id number] ####[facility] (DEFAULT)[address] [place] [address] 59262TAW [Catalytic activity/Vol]22.0 U/NGdtqxr55.0-54.0[facility] HospitalComment on above:Performed By: #### [id number], [id number], 5412560960, 8411362823, 8303843554, [id number] ####[facility] (DEFAULT)[address] [place] [address] 91385Jyews gap [Moles/Vol]14.3 mmol/LNormal5.0-19.0 [facility] HospitalComment on above:Performed By: #### [id number], [id number], 7077513049, 2027785846, 2953537813, [id number] ####[facility] (DEFAULT)[address] [place] [address] 81966CQD [Catalytic activity/Vol]25 U/HHdacqt30-45Ptvynrrt HospitalComment on above:Performed By: #### [id number], [id number], 2665577669, 4580963532, 6741532623, [id number] ####[facility] (DEFAULT)[address] [place] [address] 08343Zksf Total0.5 mg/dLNormal0.3-1.2 [facility] HospitalComment on above:Performed By: #### [id number], [id number], 2064676653, 5029632432, 7666468286, 7799325032 ####[facility] (DEFAULT)[address] [place] [address] 38157Zfrdahc [Mass/Vol]8.6 mg/dLLow 8.9-10.3Magrkettering health – soin medical center HospitalComment on above:Performed By: #### [id number], [id number], 5580648474, 0074656368, 2976825255, [id number] ####[facility] (DEFAULT)[address] [place] [address] 94304Iaznovvi [Moles/Vol]102 mmol/L Pnttlr478-843Noyzpzev HospitalComment on above:Performed By: #### [id number], [id number], 4000456653, 7681999214, 6473845174, [id number] ####[facility] (DEFAULT)[address] [place] [address] 77369MF1 [Moles/Vol]25 mmol/LNormal 21-32[facility] HospitalComment on above:Performed By: #### [id number], 6181072719, 2350490432, 7812394274, 9194013125, 4860723422 ####[facility] (DEFAULT)[address] [place] [address] 79436Rcitucfjui [Mass/Vol]0.70 mg/dL Normal0.60-1.30[facility] Medical CenterComment on above:Performed By: #### [id number], 9707005914, 9573629184, 9817608934, 0625060221, 4825258588 ####[facility] (DEFAULT)[address] [place] [address] 05993Wptgzirh (S) [Mass/Vol]3.3 g/dL Normal1.5-4.3MMemorial Health System [facility] Memorial HospitalComment on above:Performed By: #### [id number], 7756352474, 7641589556, 9655379403, 9284553593, 6784192299 ####[facility] (DEFAULT)[address] [place] [address] 66253Igwjqcz [Mass/Vol]155.0 mg/dL High74.0-118.0[facility] Medical CenterComment on above:Performed By: #### [id number], 6032336769, 6190644857, 3804725172, 6705104116, 0007648936 ####[facility] (DEFAULT)[address] [place] [address] 48759Fmeeeemvld596 mOsm/LInvalid Interpretation CodeLicking Memorial Hospital HospitalComment on above:Performed By: #### [id number], [id number], 3973109944, 0391743645, 0485916499, 1789975624 ####[facility] (DEFAULT)[address] [place] [address] 33560Ibggplhhg [Moles/Vol]3.3 mmol/LLow3.6-5.1Mmer[facility] HospitalComment on above:Performed By: #### [id number], 6037388101, 5132568093, 8187558846, 1275708090, 9374282122 ####[facility] (DEFAULT)[address] [place] [address] 13401Cowokgt [Mass/Vol]7.1 g/dLNormal6.5-8.1Mmer[facility] HospitalComment on above:Performed By: #### [id number], 8651927829, 1179572326, 6284346221, 6164291534, 6122085066 ####[facility] (DEFAULT)[address] [place] [address] 22149Hiqofp [Moles/Vol]138.0 mmol/IWxxdsj204.0-144.0[facility] HospitalComment on above: Performed By: #### [id number], 8605294771, 5860234186, 8209772651, 9793989190, 2329146627 ####[facility] (DEFAULT)[address] [place] [address] 06875Kbhy nitrogen [Mass/Vol]10 mg/dLNormal8-26[facility] HospitalComment on above:Performed By: #### [id number], 0081101203, 6107664593, 9685000162, 2066498757, 8445351230 ####[facility] (DEFAULT)[address] [place] [address] 37575Gzep nitrogen/Creatinine [Mass ratio]14.2 mg/mgNormal4.6-16.2 [facility] Medical CenterComment on above:Performed By: #### [id number], 9093424287, 7869813828, 7473567066, 7085593722, 6395005802 ####[facility] (DEFAULT)[address] [place] [address] 59712DM Note - Physicianon 11-06-2024 ED Note - PhysicianPatient: NAILA BELTRAN Age: 54 years Sex: FEMALE : 1970 Associated Diagnoses: Left-sided chest wall pain Author: Melvin Lane MD Basic Information Time seen: Date & time 11/06/2024 21:46:00. History source: Patient. Arrival mode: Private vehicle. History limitation: None. 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 History of Present Illness The patient presents with chest pain. The onset was 1 hours ago. The course/duration of symptoms isconstant. Location: Left lateral chest. Radiating pain: none. The character of symptoms is sharp. The exacerbating factor is movement. The relieving factor is rest. Risk factors consist of diabetes me llitus, smoking and obesity. 54-year-old female presented to ER with complaint regarding chest pain. Patient reported having chest pain at the left chest area, about an hour prior to arrival. Was sitting at the time of onset. Movement exacerbate the pain. Touching exacerbate the pain. No shortness of breath. No pleurisy. No rad iculopathy. No diaphoresis. No associated nausea or vomiting. No other treatment prior to arrival. Stated that she had seen cardiology in the past. Stated that she had echocardiogram several weeks ago and due to follow-up next week. Stated that she had a 30% blockage on her last evaluation Does have other risk factors including diabetes, tobacco use Review of Systems Constitutional symptoms: No fever, Skin symptoms: No rash, ENMT symptoms: No sore throat, Respiratory symptoms: No cough, Cardiovascular symptoms: Chest pain, no tachycardia, no syncope, no diaphoresis. Gastrointestinal symptoms: Negative except as documented in HPI. Musculoskeletal symptoms: Chronic muscle pain and joint pain. Neurologic symptoms: Chronic migraines. Health Status Allergies: Allergic Reactions (Selected) Severity Not Documented Cephalexin- No reactions were documented. Heparin- No reactions were documented. NSAIDs- No reactions were documented. Penicillin- No reactions were documented.. Medications: (Selected) Prescriptions Prescribed cholecalciferol 2000 intl units oral capsule: 2,000 International_Unit, PO, Daily, 30 cap(s), 0 Refill(s) cyclobenzaprine 10 mg oral tablet: 10 mg = 1 tab(s), Oral, TID, PRN: for spasm, 30 tab(s), 0 Refill(s) Documented Medications Documented !-Flonase 50 [...] 1 tablet by mouth twice a day Jardiance 25 mg oral tablet: 0 Refill(s) Jardiance: 10 mg, Oral, qAM, 0 Refill(s) Keppra 500 mg oral tablet: 1,500 mg [...] PRN: as needed for muscle spasm, 90 tab(s),0 Refill(s). Past Medical/ Family/ Social History Medical history: Resolved DVT (deep venous thrombosis) ([id number]): Resolved. Hysterectomy (263785807): Resolved. Visual discomfort (60249126): Resolved. Seizure disorder (345.90): Resolved. Serum iron level abnormal (650989133): Resolved. Hyponatremia (350930688): Resolved. Hypokalemia (72310683): Resolved. Factor V (8472389934): Resolved., Reviewed as documented in chart. Surgical history: Rotator cuff repair (104490629) on 08/11/2016 at 46 Years. Comments: 08/15/2016 10:38 Teresita Boo LPN Left arthrocopys with rotator cuff debridement and subacromial bursectomy US vascular - Doppler effect (207042673) on 06/18/2016 at 45 Years. Comments: 06/20/2016 11:47 Teresita Boo LPN No evidence of DVT Neck injection (731977311) on 04/14/[address] of chest (048176380) on 01/03/2016 at 45 Years. radiofrequency ablation of medial branch of cervical nerve usuing fluoroscopic guidance on 10/10/2014 at 44 Years. MRI on 04/11/2014 at 43 Years. Comments: 06/01/2016 11:48 Teresita Boo LPN Degenerative changes and disc buldging. Neural foraminal narrowing as described US vascular - Doppler effect (638950784) on 12/27/2013 at 43 Years. Comments: 06/19/2015 13:25 EDT - Shabnam Moe (more content not included)...UK HealthcareED Note-[facility] Medical Centeron 53-28-1643TR Note-Nursingprivate vehicle arrival from home with s/o at bedside. 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 r eproducible with palpation. 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 independent to room. ekg complete for provider review. reynaga to purposeful command. nih negative. a/ox4. clear speech. tele provided. unlabored. maintains ra saturation. oriented to call suh. no acute distress. oBellevue HospitalExJersey Shore University Medical Center 59-95-6824Netb CollectedYesInvalid Interpretation Code [facility] Medical CenterComment on above:Performed By: #### [id number], [id number], [id number], [id number], 4661201070, [id number] ####[facility] (DEFAULT)[address] [place] [address] 27063Uemlo Redon 97-29-7253Chbf CollectedYesInvalid Interpretation CodeLicking Memorial Hospital HospitalComment on above: Performed By: #### [id number], [id number], 0919228098, 6089634271, 7500588126, [id number] #### [facility] (DEFAULT) [address] [place] [address] 85366Ktgrhjbrl By: #### [id number], [id number], 0817680934, 9120582990, 2043378965, [id number] ####[facility] (DEFAULT)[address] [place] [address] 48123Uqbjqyb Follow-Upon 72-04-3636Acvjlyy Follow-Up [id number] Naila Beltran 1970 F Date Provider Department Center 11/06/2024 LAYNE HERNANDEZ RAMIRO [facility] Family History Problem Relation Age of Onset Heart failure Mother Valvular heart disease Mother Family Status - Relation Status Age at Mother Father AliveNormalUniversity of Pampa Regional Medical CenternI HSon 09-22-5374Hacploaz I High Sensitivity<2.3Normal<=15.0[facility] Medical CenterComment on above:Performed By: #### [id number], [id number], 9498828977, 2370217792, 1229466641, [id number] ####[facility] (DEFAULT)[address] [place] [address] 41393Xsbkeu Summaryon 60-48-3630Eqjqbt SummaryHTMLBase 64 RygrsswzJPg2mZx+PGhlYWQ+VB1DHZUyX81chEXzlD3dY5STFBqSStxpLVXHCHmHBpKsrwSzCQ4bjQCt ZXJu [file] [facility] (more content not included)...UK HealthcareADT Notificationon 21-07-1891VCN NotificationYour patient NAILA BELTRAN ( ) has been discharged from location ED. The reason forvisit is RT ARM PAIN, WALLER.[facility] HospitalED Note - Physicianon 24-11-4176GQ Note - PhysicianPatient: NAILA BELTRAN Age: 54 years Sex: FEMALE : 1970 Associated Diagnoses: Intractable migraine without aura and without status migrainosus Author: Melvin Lane MD Basic Information Time seen: Date & time 10/30/2024 23:08:00. History source: Patient. Arrival mode: Private vehicle. History limitation: None. Additional information: Chief Complaint from Nursing Triage Note : Chief Complaint 10/30/2024 21:53 EDT Chief Complaint Pt states she is having right arm tingling and a headache. States it is the same piched nerve pain she has had previously . History of Present Illness The patient presents with headache and migraine . The onset was 6 hours ago. The course/duration of symptoms is constant. Location: Frontal temporal. The character of symptoms is throbbing. The degree at onset was moderate. The degree at maximum was severe. The degree at present is severe. There are exacerbating factors including light and neck motion. The relieving factor is light avoidance. Prior episodes: frequent. Therapy today: Tylenol. Preceding symptoms: none. Associated symptoms: nausea, neck pain, denies vomiting, denies altered vision, denies photophobia, denies fever, denies altered speech, denies altered level of consciousness and denies seizure. Review of Systems Constitutional symptoms: No fever, Skin symptoms: No rash, Eye symptoms: Vision unchanged. ENMT symptoms: No sore throat, Respiratory symptoms: No cough, Cardiovascular symptoms: No chest pain, Gastrointestinal symptoms: Nausea. Neurologic symptoms: Headache. Endocrine symptoms: No hyperglycemia, Health Status Allergies: Allergic Reactions (Selected) Severity Not Documented Cephalexin- No reactions were documented. Heparin- No reactions were documented. NSAIDs- No reactions were documented. Penicillin- No reactions were documented.. Medications: (Selected) Prescriptions Prescribed cholecalciferol 2000 intl units oral capsule: 2,000 International_Unit, PO, Daily, 30 cap(s), 0 Refill(s) cyclobenzaprine 10 mg oral tablet: 10 mg = 1 tab(s), Oral, TID, PRN: for spasm, 30 tab(s), 0 Refill(s) Documented Medications Documented !-Flonase 50 [...] 1 tablet by mouth twice a day Jardiance 25 mg oral tablet: 0 Refill(s) Jardiance: 10 mg, Oral, qAM, 0 Refill(s) Keppra 500 mg oral tablet: 1,500 mg [...] PRN: as needed for muscle spasm, 90 tab(s),0 Refill(s). Past Medical/ Family/ Social History Medical history: Resolved DVT (deep venous thrombosis) ([id number]-2P5U6F326M30): Resolved. Hysterectomy (501444091): Resolved. Visual discomfort (67516289): Resolved. Seizure disorder (345.90): Resolved. Serum iron level abnormal (163953823): Resolved. Hyponatremia (322981468): Resolved. Hypokalemia (04850544): Resolved. Factor V (8996819036): Resolved., Reviewed as documented in chart. Surgical history: Rotator cuff repair (174601276) on 08/11/2016 at 46 Years. Comments: 08/15/2016 10:38 Teresita Boo LPN Left arthrocopys with rotator cuff debridement and subacromial bursectomy US vascular - Doppler effect (038280701) on 06/18/2016 at 45 Years. Comments: 06/20/2016 11:47 Teresita Boo LPN No evidence of DVT Neck injection (536915446) on 04/14/[address] of chest (130579720) on 01/03/2016 at 45 Years. radiofrequency ablation of medial branch of cervical nerve usuing fluoroscopic guidance on 10/10/2014 at 44 Years. MRI on 04/11/2014 at 43 Years. Comments: 06/01/2016 11:48 Teresita Boo LPN Degenerative changes and disc buldging. Neural foraminal narrowing as described US vascular - Doppler effect (143092643) on 12/27/2013 at 43 Years. Comments: 06/19/2015 13:25 LEYDIT Cielo Salgado IMPRESSION: GROSSLY UNREMARKABLE IMAGING STUDY OF THE VISUALIZED DEEP VENOUS SYSTEM OF THE LEFT LEG DESCRIBED, NO DEFINITE EVIDENCE OF DEEP VENOUS THROMBOSIS CAN BE IDENTIFIED. Colonoscopy (318050309) on 04/22/2013 at 42 Years. Hysterectomy (768696877) on 07/29/2011 at 40 Years. Bypass (520064874) on 02/27/2011 at 40 Years. Colonoscopy (1224 (more content not included)...UK HealthcareOrders Onlyon 14-00-7987Ttonmg [id number] Naila Beltran 1970 F Date Provider Department [place] 10/30/2024 P6725-INDEBBZZ, HISTORICAL [facility] [place] [facility] Family History Problem Relation Age of Onset Heart failure Mother Valvular heart disease Mother Family Status - Relation Status Age at MotherNormalUniversity of Hca Houston Healthcare TomballProvider [place] 10-09-2024 Provider [id number]#1.00OTChildren's Hospital of ColumbusBilling Authorizationson 76-67-6874Nmpflxu Authorizations [id number]#1.00OTWhite River Junction VA [facility] Center HospitalCoding Summaryon 69-76-0522Naeshi SummaryHTMLBase 64 WzxesukvNIw1qVj+PGhlYWQ+TB2BVGOhP70jbAGnvN2eF5EVJPhFKqkgINTLLOkTZvNerlImJV6qvNZm ZXJu [file] b3J (more content not included)...[facility] HospitalProvider [place] 43-02-7812Qcdvibfa [id number]#1.00OTGTIFF [facility] HospitalCoding Summaryon 88-08-2330Hpngcc SummaryHTMLBase 64 KmitjwboXIu9fZv+PGhlYWQ+ZF4UOAYxW75skNUxgR1uI5GFWKuENwzgITWNEKkXSmNonuAfUK4jzWVf ZXJu [file] bGx (more content not included)...NormalWhite Hospital urinalysis dipstick onlyon 78-79-8558Qxagzrda Poct Urine BilirubinNegativeProMedica Health SystemExternal Poct Urine BloodNegativeProMedica Health SystemExternal Poct Urine GlucoseLargeProMedica Health SystemExternal Poct Urine KetonesNegative [facility] SystemExternal Poct Urine Leukocyte EsteraseNegativeProMedica Health SystemExternal Poct Urine NitriteNegativeProMedica Health SystemExternal Poct Urine Lo7MaeRbppde Health SystemExternal Poct Urine ProteinNegative [facility] SystemExternal Poct Urine Specific Gravity1.03Pro[facility]ica Health SystemExternal Poct Urine Jjzswpruuxdq3MxcVljvdk[address] [place], [place] [address]Interpretation and review of laboratory resultsAbnormalGrand View HealthCoding Summaryon 14-02-1505Jbngct SummaryHTMLBase 64 YxylwjfiDRt6tOn+PGhlYWQ+PH0KJMVdH10adUHexN0gA9VQMMqGKbixOGWEIGhDNaCvokAtWQ3saMHl ZXJu [file] bGx (more content not included)...UK HealthcareUS Kidney/Bladder Completeon 19-67-6465ZP Kidney/Bladder CompleteEXAM: US Kidney/Bladder Complete HISTORY: Dysuria, Proteinuria, unspecified [...] Shiva Wadsworth MD 09/09/24 9:53 am Technologist: PMNWayne HealthCare Main CampusHgbA1c Standardon 08-29-2024.Hb11.9 Invalid Interpretation [facility] HospitalComment on above:Performed By: #### [id number] ####[facility] (DEFAULT)[address] [place] [address] 27782.Hgb A1c0.74 g/dLInvalid Interpretation [facility] HospitalComment on above:Performed By: #### [id number] ####[facility] (DEFAULT)[address] [place] [address] 01187Shmmvac [Mass/Vol]177 mg/dLInvalid Interpretation [facility] HospitalComment on above:Performed By: #### [id number] ####[facility] (DEFAULT)[address] [place], [place] [address]UkU1f (Bld) [Mass fraction]7.8 %High4.6-6.2MMemorial Health System Marietta Memorial HospitalComment on above:Performed By: #### [id number] ####[facility] (DEFAULT)[address] [place], [place] [address]Hbttsyfx [place] 79-57-3149Fxrdhypv Orders [id number]#1.00OTGTLakeHealth TriPoint Medical Center Provider [id number]#1.00OTParkwood HospitalPOCT urinalysis dipstick onlyon 08-30-0739Rppigdsx Poct Urine BilirubinNegativeOur Lady of Mercy Hospital - AndersonExternal Poct Urine BloodNegative [facility] AndersonExternal Poct Urine GlucoseLargeOur Lady of Mer[facility] - [facility] External Poct Urine KetonesNegativeOur Lady of Mercy Hospital - AndersonExternal Poct Urine Leukocyte EsteraseNegativeOur Lady of Mercy Hospital - AndersonExternal Poct Urine Nitrite PositiveOur Lady of Mercy Hospital - AndersonExternal Poct Urine Wl3LfgSzymwoOur Lady of Mercy Hospital - Anderson External Poct Urine ProteinLargeOur Lady of Mercy Hospital - AndersonExternal Poct Urine Specific Gravity1.03[facility] AndersonExternal Poct Urine Urobilinogen4 [facility] - AndersonInterpretation and review of laboratory resultsAbnormal [facility] View HealthURINE CULTUREon 12-19-3024Zfcvwked identified Cx Nom (U)CULTURE RESULTS 50-100,000 ORGANISMS/mL NORMAL UROGENITAL FLORARegency Hospital Cleveland West Comment on above:Performed By: #### UC #### [facility] (TT) [address] [place] [address] VIRNM GASTRIC EMPTYING SOLIDon 73-63-4376CP GASTRIC EMPTYING SOLID* * *Final Report* * * DATE OF [...] OF GASTRIC EMPTYING OF A SOLID MEAL. Cardiology Manager: JULIO Transcribe Date/Time: Jul 01 2024 12:33P Dictated by : AMERICA AVILA MD This examination was interpreted and the report reviewed and electronically signed by: AMERICA AVILA MD on Jul 01 2024 12:34PM EST [id number]_IDCSIACNNFormerly [facility] Stomach Views for gastric emptying solid phase [address] 05-27-8568RPNOMPLCSL: NORMAL RATE OF GASTRIC EMPTYING OF A SOLID MEAL. Cardiology Manager: JULIO Transcribe Date/Time: Jul 01 2024 12:33P Dictated by : AMERICA AVILA MD This examination was interpreted and the report reviewed and electronically signed by: AMERICA AVILA MD on Jul 01 2024 12:34PM EST [facility]* * *Final Report* * * DATE OF [...] retention at 4 hours (normal range, 0-10%). TE[facility] RADIOLOGYProvider, [facility] - 07/01/2024 * * *Final Report* * * DATE OF EXAM: Jul 01 2024 12:32PM [place] [address] [facility] GASTRIC EMPTYING SOLID / PROCEDURE REASON: Nausea [...] OF GASTRIC EMPTYING OF A SOLID MEAL. Cardiology Manager: PSCB Transcribe Date/Time: Jul 01 2024 12:33P Dictated by : AMERICA AVILA MD This examination was interpreted and the report reviewed and electronically signed by: AMERICA AVILA MD on Jul 01 2024 12:34PM [facility] Hospitaliology Study observation (narrative)[facility] Stomach Views for gastric emptying solid phase W radionuclide POOrdered By: [facility] Provider on 49-64-2554GajptyzakOhioHealth Hardin Memorial Hospital 12-02-6415BTLHUhnnivzsd (AVXRMO) NAILA BELTRAN ([id number]) 1970 F Date Time Provider Department 06/28/24 [...] Intranasal Daily June 13, 2017 7:29am 06-13-2017 [facility] ([id number]) - sitaGLIPtin-metFORMIN (JANUMET) 50-500 mg per tablet Take [...] 40 mg by mouth once daily. - Comp.Stocking,Thigh,Long,X-Lrg misc Wear stocking daily - Multivitamins ORAL Chew None Entered Problem List As Of Date 06/28/2024 Noted Resolved Hypercoagulable state [D68.59] 01/16/2013 Vascular disease [I99.9] 11/15/2017 Anticoagulated [Z79.01] 02/06/2020 HLD (hyperlipidemia) [E78.5] 02/06/2020 Coronary artery disease of [place]eters[place] artery of brit*02/06/2020 Diabetes mellitus type 2 [...] 08/09/2023 Encounter Status:Closed by YAS ROY on 06/28/24[facility] HospitalCoding Summaryon 24-80-1803Kffznj SummaryHTMLBase 64 QczocyhmHFq0gYy+PGhlYWQ+BX3WDTUsX52ezJSfaA5aG0JNSUcRUecwAIEYDDhTHfZnpsOvQY2xzRJc ZXJu [file] cHN (more content not included)...[facility]/Cl[facility] Noteon 76-34-0457Rauei and Vascular Office/Clinic NoteHeart and Vascular Office/Clinic Note Chief Complaint chest [...] no food allergies, no recurrent infections, no impairedimmunity Additional ROS info: Except as noted in [...] for age, motor strength equal & normal bilaterally,sensation equal & normal bilaterally, speech normal Psychiatric: [...] Father. Heart failure: Mother. Hypertension: Mother and Brother.[facility] Memorial HospitalComment on above:Result Comment: Electronically Signed By: Cesario COLÓN, Yanni Jensen\.br\Date and Time Signed: 06/24/24 09:05 EDTXR Shoulder Complete Righton 92-86-1752UY Shoulder Complete RightCLINICAL HISTORY: Right shoulder pain. RIGHT SHOULDER 3 VIEWS: FINDINGS/IMPRESSION: 1. Mild right AC joint osteoarthrosis is noted, with an 8 mm x 5 mm degenerative subchondral cyst in the distalmost right clavicle. 2. No fracture, malalignment, or other acute bony abnormality is seen. Final Dictated by: Carlos Alfredo MD Dictated DT/TM: 06/18/24 11:52 Signed (Electronic Signature): Carlos Alfredo MD06/18/24 11:53 p Technologist: EMELIACleveland Clinic [facility] Hospital W Auto Differential panel (Bld)on 41-90-9576Pzmdgcmts (Bld) [#/Vol]0.03 10*3/uLNormal<0.11C[facility] on above:Order Comment: Specimen Type: BLOOD SPECIMENOrdering Facility: [facility] Address:[address] [place], [place] [address]Performed By: #### 03502-6 ####[facility] LABCLIA [id number] [place], [place] [address]Sztnsouzn/100 WBC (Bld)0.4 % NormalMercy Health St. [facility] on above:Order Comment: Specimen Type: BLOOD SPECIMENOrdering Facility: [facility] Address:[address] [place], [place] [address]Performed By: #### 60692-0 ####[facility] LABCLIA [id number] [place] [address] Differential cell count method Nom (Bld)AutoNormalCTriHealth Bethesda [facility] Comment on above:Order Comment: Specimen Type: BLOOD SPECIMENOrdering Facility: [facility] Address:[address] [place] [address] Performed By: #### 34744-5 ####[facility] LABCLIA [id number] [place], [place] [address]Ujujzmciaqu (Bld) [#/Vol]0.17 10*3/uLNormal<0.46[facility] on above:Order Comment: Specimen Type: BLOOD SPECIMENOrdering Facility: [facility] Address:[address] [place], [place] [address]Performed By: #### 34910-9 ####[facility] LABCLIA [id number] [place], [place] [address]Zwiwgzpdqhk/100 WBC (Bld)2.4 %NormalMercy Health St. Anne Hospital on above:Order Comment: Specimen Type: BLOOD SPECIMENOrdering Facility: [facility] Address:[address] [place], [place] [address]Performed By: #### 15455-9 ####[facility] LABCLIA [id number] [place], [place] [address]Mzwlesemwkb distribution width (RBC) [Ratio]13.9 %Ddccpt80.5-15.0[facility] on above: Order Comment: Specimen Type: BLOOD SPECIMENOrdering Facility: [facility] Address:[address] [place], [place] [address]Performed By: #### 29466- 8 ####[facility] LABCLIA [id number] [place], [place] [address]Brnivysuia (Bld) [Volume fraction]39.6 %Hhpoql04.0-46.[address] [facility] on above:Order Comment: Specimen Type: BLOOD SPECIMENOrdering Facility: [facility] Address:[address] [place], [place] [address]Performed By: #### 14184-6 ####[facility] LABCLIA [id number] [place], [place] [address]Rjstvjjdss (Bld) [Mass/Vol]12.8 g/jBZzsblr43.5-15.5CThe [facility] on above: Order Comment: Specimen Type: BLOOD SPECIMENOrdering Facility: [facility] Address:[address] [place], [place] [address]Performed By: #### 61962- 8 ####[facility] LABCLIA [id number] [place], [place] [address]Czeruvuj granulocytes (Bld) [#/Vol]0.05 10*3/uLNormal <0.10[facility] on above:Order Comment: Specimen Type: BLOOD SPECIMENOrdering Facility: [facility] Address:[address] [place], [place] [address]Performed By: #### 43774-7 ####[facility] LABCLIA [id number] [place], [place] [address]Phiokhea granulocytes/100 WBC (Bld)0.7 %NormalMercy Health St. Anne Hospital on above: Order Comment: Specimen Type: BLOOD SPECIMENOrdering Facility: [facility] Address:[address] [place], [place] [address]Performed By: #### 25885- 8 ####[facility] LABIA [id number] [place], [place] [address]Thikoehbphx (Bld) [#/Vol]2.44 10*3/uLNormal1.00-4.[address] [facility] on above:Order Comment: Specimen Type: BLOOD SPECIMENOrdering Facility: [facility] Address:[address] [place], [place] [address]Performed By: #### 31331-6 ####[facility] LABIA [id number] [place], [place] [address]Yqvmlcfzleu/100 WBC (Bld)34.0 %NormalMercy Health St. [facility] Hospital on above:Order Comment: Specimen Type: BLOOD SPECIMENOrdering Facility: [facility] Address:[address] [place], [place] [address]Performed By: #### 89511-8 ####[facility] LABIA [id number] [place], [place] [address]MSQ (RBC) [Entitic mass]28.8 qhPoiwil62.0-34.0[facility] on above:Order Comment: Specimen Type: BLOOD SPECIMENOrdering Facility: [facility] Address:[address] [place], [place] [address]Performed By: #### 61675-8 ####[facility] LABCLIA [id number] [place], [place] [address]HLYK (RBC) [Mass/Vol]32.3 g/nIUhmldf55.5-36.0[facility] on above: Order Comment: Specimen Type: BLOOD SPECIMENOrdering Facility: [facility] Address:[address] [place], [place] [address]Performed By: #### 19821- 8 ####[facility] LABCLIA [id number] [place], [place] [address]ISL (RBC) [Entitic vol]89.2 hUBbramj32.0-100.0[facility] on above:Order Comment: Specimen Type: BLOOD SPECIMENOrdering Facility: [facility] Address:[address] [place], [place] [address]Performed By: #### 41475-2 ####[facility] LABIA [id number] [place], [place] [address]Vuixdkrnq (Bld) [#/Vol]0.38 10*3/uLNormal<0.87[facility] on above:Order Comment: Specimen Type: BLOOD SPECIMENOrdering Facility: [facility] Address:[address] [place], [place] [address]Performed By: #### 45375- 8 ####[facility] LABCLIA [id number] [place], [place] [address]Mbpfxntir/100 WBC (Bld)5.3 %NormalMercy Health St. [facility] on above:Order Comment: Specimen Type: BLOOD SPECIMENOrdering Facility: [facility] Address:[address] [place], [place] [address]Performed By: #### 91671-0 ####[facility] LABCLIA [id number] [place], [place] [address]Uuppiehgqix (Bld) [#/Vol]4.10 10*3/uLNormal1.45-7.50[facility] on above:Order Comment: Specimen Type: BLOOD SPECIMENOrdering Facility: [facility] Address:[address] [place], [place] [address]Performed By: #### 42307-6 ####[facility] LABIA [id number] [place], [place] [address]Yvheuciaewh/100 WBC (Bld)57.2 %NormalMercy Health St. [facility] on above:Order Comment: Specimen Type: BLOOD SPECIMENOrdering Facility: [facility] Address:[address] [place], [place] [address]Performed By: #### 24992-8 ####[facility] LABIA [id number] [place], [place] [address]Sqvcarrcb RBC (Bld) [#/Vol] 10*3/uLNormal<0.01[facility] on above:Order Comment: Specimen Type: BLOOD SPECIMENOrdering Facility: [facility] Address:[address] [place], [place] [address]Performed By: #### 71371-3 ####[facility] LABIA [id number] [place], [place] [address]Vkirhwcqx RBC/100 WBC (Bld) [Ratio]0.0 /[address] [facility] on above:Order Comment: Specimen Type: BLOOD SPECIMENOrdering Facility: [facility] Address:[address] [place], [place] [address]Performed By: #### 41288-9 ####[facility] LABIA [id number] [place], [place] [address]Ddajqeni mean volume (Bld) [Entitic vol]9.4 fLNormal9.0-12.7C[facility] on above:Order Comment: Specimen Type: BLOOD SPECIMENOrdering Facility: [facility] Address:[address] [place], [place] [address] Performed By: #### 32536-1 ####[facility] LABCLIA [id number] [place], [place] [address]Pmrwmrqdz (Bld) [#/Vol]221 10*3/zSVmlutk718-661MjlgzowxfMercy Health St. [facility] Hospital on above:Order Comment: Specimen Type: BLOOD SPECIMENOrdering Facility: [facility] Address:[address] [place], [place] [address]Performed By: #### 69786-1 ####[facility] LABIA [id number] [place], [place] [address]TCC (d) [#/Vol]4.44 10*6/uLNormal3.90-5.20[facility] on above:Order Comment: Specimen Type: BLOOD SPECIMENOrdering Facility: [facility] Address:[address] [place], [place] [address]Performed By: #### 44062-6 ####[facility] LABIA [id number] [place], [place] [address]BDY (d) [#/Vol]7.17 10*3/uLNormal3.70-11.00[facility] on above: Order Comment: Specimen Type: BLOOD SPECIMENOrdering Facility: [facility] Address:[address] [place], [place] [address]Performed By: #### 29336- 8 ####[facility] LABIA [id number] [place], [place] [address]GNUHXOkk 88-11-0276NPRVSRAbrci (SP) Office (HEMASA) NAILA BELTRAN ([id number]) 1970 F Date Time Provider Department 06/10/24 [...] bed and had warm swollen left leg. [facility] diagnosed with DVT. She was negative for [...] 6 months - 2011: Grafting done at [facility] for recurrent clots; she was on xarelto at this time. She was initially on 20 mg but had heavy and long menstrual periods needing an emergent hysterectomy and was then placed on 10 mg dosing. - 2017: Switched to low dose eliquis 2.5 mg BID for insurance reasons. LAC testing at this time was negative - 2019: Grafting #2 done at [facility] (Dr. Scanlon) She is on Eliquis 2.5 mg BID. She has a heart monitor per cardiology for palpitations. She denies any new clots or bleeding issues. She has vascular disease and continues to be followed and treated at [facility]. She recently had a colonoscopy and EGD [...] Intranasal Daily June 13, 2017 7:29am 06-13-2017 [facility] ([id number]) sitaGLIPtin-metFORMIN (JANUMET) 50-500 mg per tablet Take [...] 2019) follows with Dr. Christy Moreland at [facility] Peripheral Vascular Disease; stents x 2 (2008, 2011) Carotid artery disease Epilepsy on levetiracetam Obesity Diabetes Irritable Bowel Syndrome PAST SURGICAL H (more content not included)...NormalU[facility] Health Comprehensive metabolic 2000 panelon 48-13-5802Cxrcrmy [Mass/Vol]4.4 g/dLNormal 3.9-4.9C[facility] on above:Order Comment: Specimen Type: BLOOD SPECIMENOrdering Facility: [facility] Address:[address] [place], [place] [address]Performed By: #### 78299-9 ####[facility] LABCLIA [id number] [place], [place] [address]ALK [Catalytic activity/Vol]129 U/FCbvp53-329PuoclelvzMercy Health St. [facility] on above:Order Comment: Specimen Type: BLOOD SPECIMENOrdering Facility: [facility] Address:[address] [place], [place] [address]Performed By: #### 77006-1 ####[facility] LABCLIA [id number] [place], [place] [address]RFL [Catalytic activity/Vol]20 U/LNormal7-38[facility] on above:Order Comment: Specimen Type: BLOOD SPECIMENOrdering Facility: [facility] Address:[address] [place], [place] [address]Performed By: #### 37637-9 ####[facility] LABCLIA [id number] [place], [place] [address]Vykrs gap [Moles/Vol]14 mmol/LNormal8-15[facility] on above:Order Comment: Specimen Type: BLOOD SPECIMENOrdering Facility: [facility] Address:[address] [place], [place] [address]Performed By: #### 66692- 8 ####[facility] LABCLIA [id number] [facility] [place], [place] [address]HYW [Catalytic activity/Vol]23 U/ESpqfri39-68UqmassalqMercy Health St. [facility] on above:Order Comment: Specimen Type: BLOOD SPECIMENOrdering Facility: [facility] Address:[address] [place], [place] [address]Performed By: #### 47074-2 ####[facility] LABCLIA [id number] [place], [place] [address]Ikdahcyvk [Mass/Vol]0.7 mg/dLNormal0.2-1.3C[facility] on above:Order Comment: Specimen Type: BLOOD SPECIMENOrdering Facility: [facility] Address:[address] [place], [place] [address]Performed By: #### 03646- 8 ####[facility] LABCLIA [id number] [facility] [place], [place] [address]Loiuzll [Mass/Vol]9.9 mg/dLNormal8.5-10.2C[facility] on above:Order Comment: Specimen Type: BLOOD SPECIMENOrdering Facility: [facility] Address:[address] [place], [place] [address]Performed By: #### 32465-8 ####[facility] LABCLIA [id number] [place], [place] [address]Eejugnsm [Moles/Vol]101 mmol/L Pwmdsr43-937JxbqfmedsMercy Health St. [facility] Hospital on above:Order Comment: Specimen Type: BLOOD SPECIMENOrdering Facility: [facility] Address:[address] [place], [place] [address]Performed By: #### 30872-0 ####[facility] LABCLIA [id number] [place] [address] CO2 [Moles/Vol]22 mmol/UKcjryd66-90AwicqbxmgMercy Health St. [facility] Hospital on above: Order Comment: Specimen Type: BLOOD SPECIMENOrdering Facility: [facility] Address:[address] [place], [place] [address]Performed By: #### 88125- 8 ####[facility] LABCLIA [id number] [place], [place] [address]Kltzjqennq [Mass/Vol]0.84 mg/dLNormal0.58-0.96[facility] on above:Order Comment: Specimen Type: BLOOD SPECIMENOrdering Facility: [facility] Address:[address] [place], [place] [address]Performed By: #### 21779-8 ####[facility] [id number] [place], [place] [address]Qzhfstqvnz and Glomerular filtration rate.predicted panel (S/P/Bld)83 mL/min/1.73m???Normal>=[address] [facility] on above:Order Comment: Specimen Type: BLOOD SPECIMENOrdering Facility: [facility] Address:[address] [place], [place] [address]Result Comment: Estimated Glomerular Filtration Rate (eGFR) is calculated using the 2020 CKD-EPI creatinine equation. This equation utilizes serum creatinine, sex, and age as parameters. The creatinine assay has traceable calibration to isotope dilution-mass spectrometry. Refer to KDIGO guidelines for clinical interpretation. In patients with unstable renal function, e.g. those with acute kidney injury, the eGFR may not accurately reflect actual GFR.Performed By: #### 99876-5 ####[facility] LABIA [id number] [place], [place] [address]Cpnimfi [Mass/Vol]203 mg/hAGvkd79-66KxtfdhdncMercy Health St. [facility] on above:Order Comment: Specimen Type: BLOOD SPECIMENOrdering Facility: [facility] Address:[address] [place], [place] [address]Result Comment: The [place] Diabetes Association (ADA) provides guidance for cutoff values for fast ing glucose and random glucose. The ADA defines [...] Standards of Medical Care in Diabetes 2016, [place] [employer] Association. Diabetes Care. 2016.39(Suppl 1).Performed By: #### 46605-2 ####[facility] LABCLIA [id number] [place], [place] [address]Uddnbsnbh [Moles/Vol]3.6 mmol/LLow3.7-5.1CThe [facility] on above:Order Comment: Specimen Type: BLOOD SPECIMENOrdering Facility: [facility] Address:[address] [place], [place] [address]Performed By: #### 71328-0 ####[facility] LABCLIA [id number] [place], [place] [address]Tnxioye [Mass/Vol]7.8 g/dL Normal6.3-8.0[facility] on above:Order Comment: Specimen Type: BLOOD SPECIMENOrdering Facility: [facility] Address:[address] [place], [place] [address]Performed By: #### 91319-6 ####[facility] LABCLIA [id number] [place] [address] Sodium [Moles/Vol]137 mmol/BDvmlaw171-249WlyncalipMercy Health St. [facility] on above:Order Comment: Specimen Type: BLOOD SPECIMENOrdering Facility: [facility] Address:[address] [place], [place] [address]Performed By: #### 86253-1 ####[facility] LABCLIA [id number] [place], [place] [address]Hona nitrogen [Mass/Vol]15 mg/dLNormal7-21[facility] on above:Order Comment: Specimen Type: BLOOD SPECIMENOrdering Facility: [facility] Address:[address] [place], [place] [address] [id number] By: #### 69342-4 ####[facility] LABCLIA [id number] [place], [place] [address]KJ Lower Extremity Venous Duplex Lefton 75-78-3370OB Lower Extremity Venous Duplex Left Exam Date/Time: [...] Delvis Cassidy DO Transcribed by: HUGO Technologist: Radha [facility] CenterCNPNon 25-35-1703HGSGBnfdckgfb (GASTSP) NAILA BELTRAN ([id number]) 1970 F Date Time Provider Department 04/29/24 MARTINE BOWLING During your visit today, we [...] Visit Diagnosis:Nausea [R11.0] Order(s):NM GASTRIC EMPTYING SOLID [[id number]] Order #: [id number] FUTURE Prescriptions as of 05/01/2024 - apixaban [...] Intranasal Daily June 13, 2017 7:29am 06-13-2017 [facility] ([id number]) - sitaGLIPtin-metFORMIN (JANUMET) 50-500 mg per tablet Take [...] 40 mg by mouth once daily. - Comp.Stocking,Thigh,Long,X-Lrg misc Wear stocking daily - Multivitamins ORAL Chew None Entered Problem List As Of Date 04/29/2024 Noted Resolved Hypercoagulable state [D68.59] 01/16/2013 Vascular disease [I99.9] 11/15/2017 Anticoagulated [Z79.01] 02/06/2020 HLD (hyperlipidemia) [E78.5] 02/06/2020 Coronary artery disease of [place] artery of brit*02/06/2020 Diabetes mellitus type 2 [...] 08/09/2023 Encounter Status:Closed by MARTINE BOWLING on 05/01/24[facility] AND AUTO DIFFon 05-05-8142APQPLTRB BASOPHIL0.0 X10E9/LNormal0.0-0.2 [facility] HospitalComment on above:Performed By: #### YUSUF, 63076-3, 3024-7, 3016-3, CMP, CBCA #### [facility] ([id number]) [address] [place], [place] [address]WACMJKPK NEUTROPHIL4.8 X10E9/LNormal1.5-6.6[facility] HospitalComment on above:Performed By: #### YUSUF, 24140-2, 3024-7, 3016-3, CMP, CBCA #### [facility] ([id number]) [address], [address] [place], [place] [address]Jxkjhkgxd/100 WBC (Bld)0.4 %NormalSalem City Hospital Comment on above:Performed By: #### YUSUF, 07628-6, 3024-7, 3016-3, CMP, CBCA #### [facility] ([id number]) [address], [address] [place], [place] [address]Kliimkntmyk (Bld) [#/Vol]0.2 10*3/uLNormal0.0-0.4ProMercy Health Springfield Regional Medical CenterComment on above:Performed By: #### YUSUF, 45419-3, 3024-7, 3016- 3, CMP, CBCA #### [facility] ([id number]) [address], [address] [place], [place] [address]Ewnxbewwyws/100 WBC (Bld)2.8 %NormalProLancaster Municipal Hospital Hospital Comment on above:Performed By: ###Lynette GOLDBERG, 29810-5, 3023-7, 3015-3, CMP, CBCA #### [facility] ([id number]) [address], [facility] [address] [place], [place] [address]Xggbtpofotb distribution width (RBC) [Ratio]15.2 %High11.5-15.0 [facility] HospitalComment on above:Performed By: #### YUSUF, 61543-9, 3024-7, 3015-3, CMP, CBCA #### [facility] ([id number]) [address], [address] [place], [place] [address]Geugreymdt (Bld) [Volume fraction]40.0 %Iuelsa67-32IynOdsnvuMercy Health Springfield Regional Medical CenterComment on above:Performed By: ###Lynette GOLDBERG, 67481-2, 3024-7, 3015- 3, CMP, CBCA #### [facility] ([id number]) [address], [address] [place], [place] [address]Gxgkwhvhjr (Bld) [Mass/Vol]13.0 g/cVCdseil70.7-15.5[facility] HospitalComment on above:Performed By: ###Lynette GOLDBERG, 57101-2, 3024-7, 3016- 3, CMP, CBCA #### [facility] ([id number]) [address] [address] [place], [place] [address]Pcsebdjdbln (Bld) [#/Vol]2.8 10*3/uLNormal1.0-3.5[facility] HospitalComment on above:Performed By: #### YUSUF, 02513-6, 3024-7, 3016- 3, CMP, CBCA #### [facility] ([id number]) [address], [address] [place], [place] [address]Ujunnxzqspq/100 WBC (Bld)31.8 %NormalProLancaster Municipal Hospital Hospital Comment on above:Performed By: #### YUSUF, 52763-2, 3024-7, 3016-3, CMP, CBCA #### [facility] ([id number]) [address], [address] [place], [place] [address]XMO (RBC) [Entitic mass]29.1 weNlkonz88-48PiwZsdgop [place] HospitalComment on above:Performed By: ###Lynette GOLDBERG, 46541-8, 3024-7, 3016-3, CMP, CBCA #### [facility] ([id number]) [address], [address] [place], [place] [address]UBAJ (RBC) [Mass/Vol]32.6 g/vBAvxgoq38-84TesEzjkpx [place] HospitalComment on above:Performed By: ###Lynette GOLDBERG, 73410-0, 3024-7, 3016-3, CMP, CBCA #### [facility] ([id number]) [address], [address] [place], [place] [address]RQP (RBC) [Entitic vol]89 sEXmkwsa09-030TlzKynqlr [place] HospitalComment on above:Performed By: #### YUSUF, 57739-4, 3024-7, 3016-3, CMP, CBCA #### [facility] ([id number]) [address], [address] [place], [place] [address]Iewlzpxbz (Bld) [#/Vol]0.8 10*3/uLNormal0-0.9[facility] HospitalComment on above:Performed By: #### YUSUF, 51377-1, 3024-7, 3016-3, CMP, CBCA #### [facility] ([id number]) [address], [address] [place], [place] [address]Mkimsudgc/100 WBC (Bld)9.2 %NormalSalem City Hospital Comment on above:Performed By: #### YUSUF, 79360-6, 3024-7, 3016-3, CMP, CBCA #### [facility] ([id number]) [address], [address] [place], [place] [address]Fmtfaatkozz/100 WBC (Bld)55.8 %NormalSalem City Hospital Comment on above:Performed By: #### YUSUF, 69552-3, 3023-7, 3015-3, CMP, CBCA #### [facility] ([id number]) [address], [address] [place], [place] [address]Oxlfeyuy mean volume (Bld) [Entitic vol]7.8 fLNormal7-12 [facility] HospitalComment on above:Performed By: #### YUSUF, 73896-0, 3023-7, 3015-3, CMP, CBCA #### [facility] ([id number]) [address], [address] [place], [place] [address]Excbkkrcc (Bld) [#/Vol]265 10*3/sTIyuufl849-173VfoEjzkpg [place] HospitalComment on above:Performed By: #### YUSUF, 09590-9, 3024-7, 3016-3, CMP, CBCA #### [facility] ([id number]) [address], [address] [place], [place] [address]KLS COUNT4.48 X10E12/LNormal3.80-5.20[facility] Comment on above:Performed By: #### YUSUF, 57159-2, 3024-7, 3016-3, CMP, CBCA #### [facility] ([id number]) [address], [address] [place], [place] [address]EOP (Bld) [#/Vol]8.7 10*3/uLNormal4.0-11.0[facility]z HospitalComment on above:Performed By: #### YUSUF, 35021-9, 3024-7, 3016-3, CMP, CBCA #### [facility] ([id number]) [address], [address] [place], [place] [address]SQMBYXOSHDIWG METABOLIC PANELon 87-19-0962Ycqbjcs [Mass/Vol]4.4 g/dLNormal3.2-5.3[facility] HospitalComment on above:Performed By: #### YUSUF, 39646-3, 3023-7, 6-3, CMP, CBCA #### [facility] ([id number]) [address], [address] [place], [place] [address]NTI [Catalytic activity/Vol]114 U/NHposnh96-958TngLredkm [facility]vaez HospitalComment on above:Performed By: #### UYSUF, 45447-0, 302-7, 6-3, CMP, CBCA #### [facility] ([id number]) [address], [address] [place], [place] [address]YHN [Catalytic activity/Vol]17 U/LNormal0-31[facility] HospitalComment on above:Performed By: #### YUSUF, 49496-4, 3024-7, 3016-3, CMP, CBCA #### [facility] ([id number]) [address], [address] [place], [place] [address]Ncele gap [Moles/Vol]11 mmol/LNormal5-15Pro[facility]ica Narvaez HospitalComment on above:Performed By: #### YUSUF, 97086-9, 3024-7, 3016-3, CMP, CBCA #### [facility] ([id number]) [address], [address] [place], [place] [address]GMQ [Catalytic activity/Vol]22 U/LNormal0-41Pro[facility] HospitalComment on above:Performed By: #### YUSUF, 55059-2, 3024-7, 3016-3, CMP, CBCA #### [facility] ([id number]) [address], [address] [place], [place] [address]Umkxmgwhm [Mass/Vol]1.1 mg/dLNormal0.3-1.2Pro[facility] HospitalComment on above:Performed By: #### YUSUF, 67945-8, 4-7, 6-3, CMP, CBCA #### [facility] ([id number]) [address], [address] [place], [place] [address]Rivzmnv [Mass/Vol]9.5 mg/dLNormal8.5-10.5PSum[facility] HospitalComment on above:Performed By: ###Lynette GOLDBERG, 27497-0, 4-7, 6-3, CMP, CBCA #### [facility] ([id number]) [address], [address] [place], [place] [address]Umazkivn [Moles/Vol]98 mmol/HVvcwfe17-934DojJlnojq [place] HospitalComment on above:Performed By: ###Lynette GOLDBERG, 11053-7, 4-7, 3016-3, CMP, CBCA #### [facility] ([id number]) [address], [address] [place], [place] [address]OU9 [Moles/Vol]29 mmol/ZFbpvxp55-80MjjQdqymg [facility] Comment on above:Performed By: ###Lynette GOLDBERG, 45184-4, 3024-7, 3016-3, CMP, CBCA #### [facility] ([id number]) [address], [address] [place], [place] [address]Icvlkpbcxa [Mass/Vol]0.93 mg/dLNormal0.40-1.00ProMer[facility] Medical CenterComment on above:Result Comment: METHOD TRACEABLE TO IDMS STANDARD Performed By: #### YUSUF, 88694-7, 3024-7, 6-3, CMP, CBCByron #### [facility] ([id number]) [address], [address] [place], [place] [address]FXH/1.73 sq M.predicted among non-blacks MDRD (S/P/Bld) [Vol rate/Area]73 mL/min/{1.73_m2}Normal>59ProMercy Health Springfield Regional Medical CenterComment on above: Result Comment: Reported eGFR is based on the CKD-EPI 2020 equation that does not use a race coefficient.Performed By: #### YUSUF, 35475-0, 3023-7, 3015-3, BRADY, CBCA #### [facility] ([id number]) [address], [address] [place], [place] [address]Tftckmy [Mass/Vol]222 mg/lWNgjm42-33VrqLptrvnMercy Health [facility] Regional Medical Center Comment on above:Performed By: #### YUSUF, 84053-4, 7, 3015-3, CMP, CBCA #### [facility] ([id number]) [address] [address] [place], [place] [address]Ilrddcwoq [Moles/Vol]3.1 mmol/LLow3.5-5.0ProMercy Health [facility] Regional Medical CenterComment on above:Performed By: #### YUSUF, 44578-1, 3023-7, 3015-3, CMP, CBCA #### [facility] ([id number]) [address], [address] [place], [place] [address]Ovhwjru [Mass/Vol]8.3 g/dLHigh6.0-8.0[facility] Comment on above:Performed By: #### YUSUF, 89012-8, 3023-7, 3015-3, CMP, CBCA #### [facility] ([id number]) [address], [address] [place] [address]Svfixj [Moles/Vol]138 mmol/DXbbjoe156-303CgwAtrcmo [place] HospitalComment on above:Performed By: #### YUSUF, 82894-5, 3024-7, 3016-3, CMP, CBCA #### [facility] ([id number]) [address], [address] [place], [place] [address]Tuuc nitrogen [Mass/Vol]10 mg/dLNormal5-23[facility] HospitalComment on above:Performed By: #### YUSUF, 00872-0, 3024-7, 6-3, CMP, CBCA #### [facility] ([id number]) [address], [address] [place], [place] [address]BDSL T4on 78-34-1429Qkev T4 [Mass/Vol]0.72 ng/dLNormal0.61-1.60 [facility] [place] HospitalComment on above:Performed By: #### YUSUF, 86116-5, 3024-7, 6-3, CMP, CBCA #### [facility] ([id number]) [address], [address] [place], [place] [address]AUB A1C (GLYCO-HGB)on 79-71-0118Yptnktr [Mass/Vol]249 mg/dL NormalProLancaster Municipal Hospital HospitalComment on above:Performed By: #### YUSUF, 22558- 1, 3024-7, 3016-3, CMP, CBCA #### [facility] ([id number]) [address], [address] [place], [place] [address]RpV4o (Bld) [Mass fraction]10.3 %High4.4-5.6Pro[facility] HospitalComment on above:Result Comment: NOTE ADA Guidelines Result HgbA1c Normal : less than 5.7 % Prediabetes : 5.7 % to 6.4 % Diabetes : > 6.4 % Use with caution in patients with abnormal hemoglobin variants as the half-life of red blood cells and in vivo glycation rates are affected.Performed By: #Irena GOLDBERG, 28869-0, 3023-7, 3015-3, BRADY, MARIANA #### [facility] ([id number]) [address], [address] [place], [place] [address]Qdhan 1997 panelon 37-00-9191Gosvrrnqjro [Mass/Vol]98 mg/dLLow 150-200[facility] HospitalComment on above:Performed By: Delfino GOLDBERG, 24049- 1, 3023-7, 3015-3, BRADY, MARIANA #### [facility] ([id number]) [address], [address] [place], [place] [address]Tvgklxhsiij in HDL [Mass/Vol]18 mg/dLLow>39Pro[facility] HospitalComment on above:Result Comment: HDL <40 mg/dL - High Risk HDL > or = 40mg/dL- Desirable HDL >60 mg/dL - Negative Risk Performed By: Delfino GOLDBERG, 34292-3, 3023-7, 3015-3, BRADY, CBCA #### [facility] ([id number]) [address], [address] [place], [place] [address]Atptffmptgq in LDL [Mass/Vol]54 mg/dLNormal<130Pro[facility] HospitalComment on above:Result Comment: LDL <100 mg/dL - Desirable LDL >160 mg/dL - High Risk Performed By: #Irena GOLDBERG, 24632-6, 3024-7, 3016-3, CMP, CBCA #### [facility] ([id number]) [address], [address] [place] [address]Zvihiulfofh in VLDL [Mass/Vol]26 mg/dLNormal0-30[facility] HospitalComment on above:Performed By: ###Lynette GOLDBERG, 58580-3, 3024-7, 3016-3, CMP, CBCA #### [facility] ([id number]) [address], [address] [place] [address]ICVWIPZSFST:HDL5.4High1.0-5.0[facility] [place] HospitalComment on above:Performed By: #### YUSUF, 53311-3, 4-7, 6-3, CMP, CBCA #### [facility] ([id number]) [address], [address] [place] [address]Vrmtlhszornc [Mass/Vol]130 mg/vQIqzvqw57-155TgsWhqdrd [place] HospitalComment on above:Performed By: #### YUSUF, 91277-2, 4-7, 6-3, CMP, CBCA #### [facility] ([id number]) [address], [address] [place] [address]IISOEZCEAWFM - ALBUMIN:CREATININE URINE RATIOon 04-18-2024 ALB/CREAT RATIONOT CALCULATEDNormal0.0-30.0ProGe[facility] Behavioral Hospitalca [place] HospitalComment on above:Result Comment: Result for Albumin/Creatinine Ratio cannot be reliably calculated because urine albumin and or urine creatinine is below the detection limit of the assay.Performed By: #### FERNANDO #### [facility] ([id number]) [address], [address] [place] [address]Lnoszsu DL <= 20 mg/L (U) [Mass/Vol]mg/dLNormal0.0-1.9[facility] HospitalComment on above:Performed By: #### FERNANDO #### [facility] ([id number]) [address] [place] [address], [address] [place], [place] [address]QOMYW CREAT88.03 mg/dLNormalProMedica Chicago HospitalComment on above:Performed By: #### FERNANDO #### [facility] ([id number]) [address] [place] [address], [address] [place], [place] [address]LUD Qnon 74-74-0778QMD2.79 uIU/mLHigh0.49-4.67[facility] [place] HospitalComment on above:Performed By: #### HA1C, 34472-6, 3024-7, 3016-3, CMP, CBCA #### [facility] ([id number]) [address] [place] [address], [address] [place], [place] [address]Bzrdav Summaryon 40-47-1801Jjrkuv SummaryHTMLBase 64 ZktbbzilBYh8kOz+PGhlYWQ+TK2TEJZgC57aqENfyY7wW6FNVVsFTziwJWPDYDsGYpYvgpTpKG4huZHz ZXJu [file] cHN (more content not included)...[facility] HospitalCoding Summaryon 48-75-6119Vorypj SummaryHTMLBase 64 MpahrujsXHf5pIr+PGhlYWQ+RG5ABWQkJ10mhZDdiR3cH2BPGTtRCyeqTOALMQcPAmKtekOhLQ6zeUUk ZXJu [file] cHN (more content not included)...NormalWagruder HospitalCoding SummaryHTMLBase 64 XkomztfzVOh3bHx+PGhlYWQ+FG1OYILiI81phEWjaJ0aL5MWNCgERjthLBPEAObONuCobkUhED5heWMr ZXJu [file] cHN (more content not included)...[facility].Auto Diff 1on 59-07-6840Pxtj Vigo %5 %Normal1-12[facility] HospitalComment on above:Performed By: #### 89059098, 8135735, 9091397, 7498565983, 3050998849, 0409361776 ####[facility] (DEFAULT)[address] [place] [address] 50130Ddzx Abs# 0.1 j09Pckixx8.0-0.2M[facility] HospitalComment on above:Performed By: #### 14581712, 1006527, 3146789, 5007863842, 3248470101, 9200083210 ####[facility] (DEFAULT)[address] [place] [address]Cnombwhir/100 WBC (Bld) 1.0 %Normal0.2-2.0[facility] HospitalComment on above:Performed By: #### 99621381, 0478847, 5177771, 2511501567, 9932139405, 9095095881 ####[facility] (DEFAULT)[address] [place] [address]Jxb Abs#0.1 h44Qvdjsg2.0-0.4 [facility] HospitalComment on above:Performed By: #### 74542639, 3664946, 9908333, 7564808446, 7590095656, 5474754178 ####[facility] (DEFAULT)[address] [place] [address] 04607Stropqpiwow/100 WBC (Bld)1.8 %Normal0.9-4.0[facility] HospitalComment on above:Performed By: #### 28659337, 6554443, 8410562, 8644649908, 3007058008, 2323287828 ####[facility] (DEFAULT)[address] [place] [address] 79469Uuaqm Abs#3.0 z85Taeh6.3-2.9[facility] HospitalComment on above:Performed By: #### 70933221, 2655416, 2681051, 5776535419, 8182995015, 0927932630 ####[facility] (DEFAULT)[address] [place] [address] 05436Fcaskpgsibj/100 WBC (Bld)37 %Gzvpsz59-74Hosgktsu HospitalComment on above: Performed By: #### 80663547, 5562974, 1183852, 7483644672, 9913251100, 9010763702 ####[facility] (DEFAULT)[address] [place] [address] 24329Gada Abs#0.4 o87Nbqsyc6.0-0.8[facility] HospitalComment on above:Performed By: #### 80526496, 2140888, 1426242, 8927712659, 2064804455, 5735037258 ####[facility] (DEFAULT)[address] [place] [address] 26159Eusm Abs# 4.6 g48Zmgpfq2.5-9.2[facility] HospitalComment on above:Performed By: #### 94991337, 7365508, 8189222, 2867405461, 2999333007, 3992550406 ####[facility] (DEFAULT)[address] [place] [address] 48926Cjzavknomxg/100 WBC (Bld)55 %Xapkgf14-02Vyisoymg HospitalComment on above:Performed By: #### 76520458, 6579923, 7657003, 2458198238, 7664976613, 7384648948 ####[facility] (DEFAULT)[address] [place] [address] 11617HON w/ Auto Diffon 23-40-5806Fdilnbamfam distribution width (RBC) [Ratio]15.9 %High11.5-15.0 [facility] HospitalComment on above:Performed By: #### 55233319, 4863138, 5474944, 9527940243, 5877106111, 6351641724 ####[facility] (DEFAULT)[address] [place] [address] 49578Lghdxiokdq (Bld) [Volume fraction]38.6 %Normal 33.7-40.4[facility] HospitalComment on above:Performed By: #### 50618237, 6648124, 0021021, 4507875832, 5943825072, 1514517181 ####[facility] (DEFAULT)[address] [place] [address] 59894Ommwqfotbc (Bld) [Mass/Vol]13.0 g/dLNormal 11.3-15.9[facility] HospitalComment on above:Performed By: #### 48030742, 5709450, 3899318, 8324546620, 5229311722, 0943723972 ####[facility] (DEFAULT)[address] [place] [address] 04536Irh Diff?AutoInvalid Interpretation Code [facility] CenterComment on above:Performed By: #### 67488192, 7889567, 6524666, 1568431931, 7384962201, 1003779130 ####[facility] (DEFAULT)[address] [place] [address] 78232TMU (RBC) [Entitic mass]30 pyYiqunk28-94Kptfremn HospitalComment on above:Performed By: #### 02207626, 3341441, 8738148, 2140728991, 2681793261, 8467417200 ####[facility] (DEFAULT)[address] [place] [address] 15349HAHD (RBC) [Mass/Vol]34 g/oLFjgnzb19-58Qylvwhwk HospitalComment on above:Performed By: #### 75941647, 6698028, 5003980, 0516076406, 7859576370, 9685907355 ####[facility] (DEFAULT)[address] [place] [address] 46790BQK (RBC) [Entitic vol]88 hBQjflfe92-166Iewpqvun HospitalComment on above:Performed By: #### 49883138, 7128885, 2888781, 9245795403, 9305144756, 6599963734 ####[facility] (DEFAULT)[address] [place] [address] 05165Btqzzfie339 k91Stmbvg710-698Zxeqlnbb HospitalComment on above:Performed By: #### 84000260, 2371683, 7795064, 2752619694, 3666352665, 8028462940 ####[facility] (DEFAULT)[address] [place] [address] 08005Oiuomzzp mean volume (Bld) [Entitic vol]8.4 fLNormal6.3-10.2Magrkettering health – [facility] HospitalComment on above:Performed By: #### 20706226, 9597910, 2985512, 6843220611, 0383366722, 8212190811 ####[facility] (DEFAULT)[address] [place] [address] 59318BQS7.39 x47Zzzafy5.70-5.30[facility] HospitalComment on above:Performed By: #### 61995624, 9514142, 9031925, 2075108059, 2797569190, 5816997423 ####[facility] (DEFAULT)[address] [place] [address] 10854XAQ1.3 i91Otednt1.5-10.5[facility] HospitalComment on above:Performed By: #### 28898485, 4451871, 9064023, 1623728055, 9958419021, 2265294109 ####[facility] (DEFAULT)[address] [place] [address] 31302GXH Standardon 10-34-3809gNVJ Non AA>60Invalid Interpretation CodeLicking Memorial Hospital HospitalComment on above:Performed By: #### 95370292, 5908780, 0018975, 4414472738, 4534272208, 1204317810 ####[facility] (DEFAULT)[address] [place] [address] 77573mYGK AA>60Invalid Interpretation CodeLicking Memorial Hospital HospitalComment on above: Performed By: #### 78173924, 3165224, 2550928, 6068739985, 7019360691, 4540810821 ####[facility] (DEFAULT)[address] [place] [address] 38552Xznisgc [Mass/Vol]3.7 g/dLNormal3.5-5.0[facility] HospitalComment on above: Performed By: #### 47941620, 1236233, 8031587, 5105185486, 5287634809, 4274105815 ####[facility] (DEFAULT)[address] [place] [address] 62424Tzatvdu/Globulin [Mass ratio]1.0 {ratio}Low1.4-2.6[facility] HospitalComment on above:Performed By: #### 37177022, 6686344, 9373675, 9548251699, 6525706816, 5288515072 ####[facility] (DEFAULT)[address] [place] [address] 41793Psq Wkci014 IU/GUaqj73-62Ensovmhn HospitalComment on above:Performed By: #### 17520289, 0869172, 8509729, 5838874672, 9874052712, 7321602857 ####[facility] (DEFAULT)[address] [place] [address] 57841DAU [Catalytic activity/Vol]25.0 U/RUnocus22.0-54.0[facility] HospitalComment on above:Performed By: #### 49634428, 3950521, 3064627, 1008961526, 5665006316, 1375013346 ####[facility] (DEFAULT)[address] [place] [address] 75122Sksfb gap [Moles/Vol]13.5 mmol/LNormal5.0-19.0[facility] HospitalComment on above:Performed By: #### 87651922, 4262775, 1487042, 6933819670, 0086667045, 1021790736 ####[facility] (DEFAULT)[address] [place] [address] 26727IXC [Catalytic activity/Vol]31 U/UGeresn88-21Dtdpcbwc HospitalComment on above: Performed By: #### 75588372, 5299811, 3684766, 4206045770, 8836935719, 6464593879 ####[facility] (DEFAULT)[address] [place] [address] 18145Fwtj Total0.9 mg/dLNormal0.3-1.2[facility] HospitalComment on above:Performed By: #### 02408481, 7007283, 6006922, 8926415830, 5888381149, 3008521978 ####[facility] (DEFAULT)[address] [place] [address] 30739Ebnssjw [Mass/Vol]8.5 mg/dLLow8.9-10.3[facility] HospitalComment on above:Performed By: #### 61256361, 6684348, 0110257, 4445627658, 3908457939, 4046687908 ####[facility] (DEFAULT)[address] [place] [address] 96127Qgommmvs [Moles/Vol] 100 mmol/UWer716-294Rnflttjn HospitalComment on above:Performed By: #### 70381209, 5272129, 4940508, 1875053925, 4994256387, 4563501125 ####[facility] (DEFAULT)[address] [place] [address] 17520ZT4 [Moles/Vol]21 mmol/RKaywci46-00Csdwubdz HospitalComment on above:Performed By: #### 41192984, 6386405, 0816557, 2868049958, 7599720771, 1284205613 ####[facility] (DEFAULT)[address] [place] [address] 75007Zxfkifxdpa [Mass/Vol]0.94 mg/dL Normal0.60-1.30[facility] HospitalComment on above:Performed By: #### 47899523, 6995223, 4512772, 6494023796, 4890992308, 9621499495 ####[facility] (DEFAULT)[address] [place] [address] 53359Qepbvxgd (S) [Mass/Vol]3.7 g/dL Normal1.5-4.3[facility] HospitalComment on above:Performed By: #### 43573532, 3134198, 3060050, 6016192654, 5561291310, 2366631955 ####[facility] (DEFAULT)[address] [place] [address] 17771Gfdebqv [Mass/Vol]246.0 mg/dL High74.0-118.0[facility] HospitalComment on above:Performed By: #### 56668237, 2635681, 8089817, 9668740782, 5682399312, 1764212642 ####[facility] (DEFAULT)[address] [place] [address] 62783Zjacktefzz726 mOsm/LInvalid Interpretation CodeLicking Memorial Hospital HospitalComment on above:Performed By: #### 41382714, 7928644, 5888640, 5332533772, 5632556662, 6079394479 ####[facility] (DEFAULT)[address] [place] [address] 20727Sgmaafkag [Moles/Vol] 3.5 mmol/LLow3.6-5.1[facility] HospitalComment on above:Performed By: #### 63479151, 3638585, 5763730, 1093571646, 2329487304, 9204726165 ####[facility] (DEFAULT)[address] [place] [address] 91952Scunrrl [Mass/Vol]7.4 g/dLNormal6.5-8.1[facility] HospitalComment on above:Performed By: #### 94340389, 4430657, 3569615, 5348689479, 6132858083, 0318900404 ####[facility] (DEFAULT)[address] [place] [address] 29129Ipjfdy [Moles/Vol]131.0 mmol/L Rwn994.0-144.0[facility] HospitalComment on above:Performed By: #### 80453464, 3757229, 0422063, 1321737731, 6234066868, 6738746540 ####[facility] (DEFAULT)[address] [place] [address] 54247Vqzj nitrogen [Mass/Vol]21 mg/dL Normal8-26[facility] HospitalComment on above:Performed By: #### 28780109, 5539707, 7950525, 2325217860, 5748828079, 0860319811 ####[facility] (DEFAULT)[address] [place] [address] 27227Eyyl nitrogen/Creatinine [Mass ratio]22.3 mg/mgHigh4.6-16.2MMemorial [facility] Memorial HospitalComment on above:Performed By: #### 39085287, 0855855, 8134961, 3757220839, 8833722090, 0435049963 ####[facility] (DEFAULT)[address] [place] [address] 50762JN Clinical Summaryon 98-79-1551SS Clinical SummaryL[facility] - Emergency Department [address] [place] [address] ED Clinical Summary PERSON INFORMATION Name: NAILA BELTRAN Age: 53 Years Sex: FEMALE : 1970 MRN: Acct#: Visit Reason: Increased blood sugar; Nausea; Hyperglycemia; HIGH BLOOD SUGAR Arrival: 02/29/2024 19:59:02 Discharge: 02/29/2024 23:32:00 LOS: 000 03:33 Check In: 02/29/2024 19:59:02 Checkout:02/29/2024 23:32:00 Address: [address] [place] [address] PCP: HAIDER ADAMSON PROVIDER INFORMATION Provider Role Assigned Unassigned Marcial RN, Nupur Coleman ED Nurse 02/29/2024 20:27:26 Darin Murphy [...] Discharge Location: PATIENT EDUCATION INFORMATION Instructions: Hyperglycemia, Dial-ht-Gblw Follow-Up: With: Address: When: Cece Hannon [address] [place] [address] Business (1) In 3 days 03/03/2024 Comments: home your tests are good watch your diet closely, but your sugar is not too sohan keep your apt with A Hannon You are welcomed to return anytime. Manuel MURPHY< ER PHYSICIAN< Jose Marroquin DIAGNOSIS: Hyperglycemia Patient Understands: Yes - Patient/family/caregiver verbalizes understanding of instructions given Comment:[facility] HealthcareED Note - Physicianon 19-95-2374AC Note - PhysicianPatient: NAILA BELTRAN Age: 53 years Sex: FEMALE [...] in, and her said the reason she ishere is because she was told that anytime [...] rhythm, No ST-T changes, no ectopy, normal [place] & QRS intervals, EP Interp, Today's ekg [...] on Monday, regarding a switch to a differentmedication to control her sugar. She states that her pump is working well now. She is easily ambulatory discharge, these are nice people. Impression and Plan Diagnosis Hyperglycemia ([id number] R73.9, Discharge, Medical) Known diabetic Plan Condition: Improved. Disposition: Discharged: time 02/29/2024 23:23:00. Patient was given the following educational materials: Hyperglycemia, Ieyy-qa-Rpnz. Follow up with: ; Cece Hannon In 3 days 03/03/2024 home your tests are good watch your diet closely, but your sugar is not too sohan keep your apt with Byron Hannon You are welcomed to return anytime. Manuel H KATHERINE< ER PHYSICIAN< Jose Marroquin. Counseled: Patient, Regarding diagnosis, Regarding diagnostic results, Regarding treatment plan, Regarding prescription, Patient indicated understanding of instructions. [Electronically Signed on: 03/01/2024 04:55 EST] Darin Murphy DO [Verified on: 03/01/2024 04:55 EST] [id number] Patient [facility] - Emergency Department [address] [place] [address] PATIENT DISCHARGE INSTRUCTIONS Patient Information Name: NAILA BELTRAN Age: 53 Years Date of : 1970 Reason For Visit: Increased blood sugar; Nausea; Hyperglycemia; HIGH BLOOD SUGAR Arrival Time: 02/29/2024 19:59:02 Primary Care Physician: HAIDER ADAMSON Attending Physician: Darin Murphy DO Comment: Visit Diagnosis: Diagnoses This Visit Hyperglycemia ([id number]) Hyperglycemia (R73.9) Increased blood sugar ([id number]) Nausea ([id number]) The Pharmacy at [facility] is open Monday through Monday from 9A to 6P and Monday and Monday from 9A to 5P Prescription Information: If you have been given a prescription for narcotics, seek immediate medical attention if you have any difficulty breathing or any sudden status changes such as confusion andsleepiness. If you or anyone you know is experiencing suicidal thoughts, mental health, alcohol and/or drug addiction problems; contact the [facility] 19/09 Crisis Hotline -Text 4HGWH to 003872. If you received any narcotics, sedation, or [...] legal documents With: Address: When: Cece Hannon [address] [place] [address] Business (1) In 3 days 03/03/2024 Comments: home your tests are good watch your diet closely, but your sugar is not too sohan keep your apt with Byron Hannon You are welcomed to return anytime. Manuel MURPHY< ER PHYSICIAN< Jose Marroquin Medication Information: The exam and treatment you received today in the [facility] Emergency Department were for an urgent problem and are not intended as complete care. It is important for you to follow up with a doctor, nurse practitioner, or physician?s legal assistant for ongoing care. If your symptoms become worse or you donot improve as expected and you are unable [...] so we can reach you if necessary. [facility] Emergency Department has provided you with a complete list of medications post discharge. Please inform your composition weatherboard applier/provider of your visit and for further instruction [...] intl units oral capsule) 2,000 International_Unit Oral (givenby mouth) every day. Refills: 0. cyanocobalamin (Vitamin [...] tab(s) Oral (given by mouth) At bedtime. metformin-sitagliptin (Janumet 50 mg-500 mg oral tablet) 1 tab(s) Oral (given by mouth) 2 times perday. metformin-sitagliptin (Janumet 50 mg-500 mg oral tablet) take 1 tablet by mouth twice a day. metoprolol (metoprolol succinate 25 mg oral capsule, extended release) 1 cap(s) Oral (given by mouth) 2 times per day. multivitamin with iron (Iron 100 Plus oral ta (more content not included)... [facility] 67-76-5826Eikb CollectedYesInvalid Interpretation CodeLicking Memorial Hospital HospitalComment on above:Performed By: #### [id number], 2502551, 8778115, [id number], [id number], [id number] ####[facility] (DEFAULT)[address] [place] [address] 66269Rlllpr Acidon 29-26-2095Mjzqtf Acid10.8 mg/dLNormal4.5-19.8[facility] HospitalComment on above: Performed By: #### [id number] ####[facility] (DEFAULT)[address] [place] [address] 61151Zqfiwmtr 75-71-9782Bjxsps Level50.0 IU/GIhgmqw24.0-51.0[facility] HospitalComment on above:Performed By: #### [id number], 5254760, 9174092, [id number], 3717067532, [id number] ####[facility] (DEFAULT)[address] [place] [address] 00266BWAE Glucose Levelon 16-31-4839Ofamtwq [Mass/Vol]195 mg/kLKcyh00-152Ckmwcwvq HospitalComment on above:Result Comment: OPR_ID=IN_LIST,TGC FLAG = False,Meter:[id number] Patrol Deputy Sheriff:[address] NupurPerformed By: #### [id number] ####[facility] (DEFAULT)[address] [place] [address] 10546Kzksokd [Mass/Vol]251 mg/dLHigh 74-118[facility] HospitalComment on above:Result Comment: OPR_ID=IN_LIST,TGC FLAG = False,Meter:[phone] Patrol Deputy Sheriff:[address] AmbrizPerformed By: #### [id number] ####[facility] (DEFAULT)[address] [place] [address] 98517JlL HSon 02-29-2024 Troponin I High Sensitivity<2.3Normal<=15.0[facility] HospitalComment on above: Performed By: #### [id number], 7883279, 2712289, [id number], 4957108417, 8862007965 ####[facility] (DEFAULT)[address] [place] [address] 09167FM w Culture if Ind Standardon 53-14-3218Ckpcymkupl UANormal [facility] CenterComment on above:Performed By: #### [id number], 37179924, 5713193, [id number] #### [facility] (DEFAULT) [address] [place] [address] 17779Qhvcu (U)YellowNormKettering Health Springfield HospitalComment on above: Performed By: #### [id number], 56943061, 3184771, 8559061593 #### [facility] (DEFAULT) [address] [place] [address] 74115Yqgmrfq?Not IndicatedInvalid Interpretation CodeLicking Memorial Hospital HospitalComment on above:Result Comment: Result created by rule GL_MAGR_ADD_UA_CULT1Performed By: #### [id number], 58881816, 1913267, [id number] #### [facility] (DEFAULT) [address] [place] [address] 79662Oxlihhk (U) [Mass/Vol]mg/dLNormKettering Health Springfield HospitalComment on above:Performed By: #### [id number], 61790433, 4919359, 8985410115 #### [facility] (DEFAULT) [address] [place] [address] 80377Ggpmmjo Ql (U)NegativeNormKettering Health Springfield HospitalComment on above:Performed By: #### [id number], 20891207, 3929249, [id number] #### [facility] (DEFAULT) [address] [place] [address] 66893Uwjdq?Not IndicatedInvalid Interpretation CodeLicking Memorial Hospital HospitalComment on above:Result Comment: Result created by rule GL_MAGR_ADD_UA_MICROPerformed By: #### [id number], 01244192, 3549032, [id number] #### [facility] (DEFAULT) [address] [place] [address] 62277BW BilirubinNegativeNormalMagruder HospitalComment on above:Performed By: #### [id number], 49858008, 3015870, [id number] #### [facility] (DEFAULT) [address] [place] [address] 30815YS BloodNegativeNormalNEGATIVEMagruder HospitalComment on above:Performed By: #### [id number], 66660694, 8590331, [id number] #### [facility] (DEFAULT) [address] [place] [address] 15077WF ClarityCLEARNormalCLEARLicking Memorial Hospital HospitalComment on above:Performed By: #### [id number], 39652166, 9959301, [id number] #### [facility] (DEFAULT) [address] [place] [address] 29720WU Leuk EstNegativeNormalNEGATIVEWagruder HospitalComment on above:Performed By: #### [id number], 23260312, 6264300, [id number] #### [facility] (DEFAULT) [address] [place] [address] 90943DM NitriteNegativeNormalNEGATIVEWagrkettering health – soin medical center HospitalComment on above:Performed By: #### [id number], 22163655, 7895580, 4320089105 #### [facility] (DEFAULT) [address] [place] [address] 44564AC pH6.8Gxcalz2-6Ydigpfur HospitalComment on above: Performed By: #### [id number], 64073008, 9500965, 7258345842 #### [facility] (DEFAULT) [address] [place] [address] 55530FF ProteinNegativeNormalNEGATIVEWagrkettering health – soin medical center HospitalComment on above:Performed By: #### [id number], 11301070, 7902253, 7385078152 #### [facility] (DEFAULT) [address] [place] [address] 39152UA Spec Grav1.630Cbaanr9.001-1.035[facility] HospitalComment on above:Performed By: #### [id number], 96717564, 6525611, 6499532482 #### [facility] (DEFAULT) [address] [place] [address] 44368LC Urobilinogen0.2 mg/dLNormal0.2-1.0[facility] Comment on above:Performed By: #### [id number], 91436879, 8027231, 6776450744 #### [facility] (DEFAULT) [address] [place] [address] 57959Egihp SourceClean CatchNormalLicking Memorial Hospital HospitalComment on above:Performed By: #### [id number], 83870751, 3014663, [id number] #### [facility] (DEFAULT) [address] [place] [address] 45051.Auto Diff 69-32-6594Zbhh Vigo %5 %Normal1-12[facility] HospitalComment on above:Performed By: #### [id number], 18588265, 1932095, 9786664707 #### [facility] (DEFAULT) [address] [place] [address] 65082Zzcn Abs#0.1 e11Agnzhb8.0-0.2M[facility] HospitalComment on above:Performed By: #### [id number], 34839915, 8537111, 1872434531 #### [facility] (DEFAULT) [address] [place] [address] 50508Rbvqjhacw/100 WBC (Bld)0.7 %Normal0.2-2.0[facility] Hospital Comment on above:Performed By: #### [id number], 14441300, 6898412, 6494874413 #### [facility] (DEFAULT) [address] [place] [address] 36919Dff Abs#0.2 q76Gtfmxo9.0-0.4[facility] HospitalComment on above:Performed By: #### [id number], 89144030, 0466138, 2324083744 #### [facility] (DEFAULT) [address] [place] [address] 30799Llpomqjmqxe/100 WBC (Bld)2.1 %Normal0.9-4.0[facility] HospitalComment on above:Performed By: #### [id number], 30680631, 0488743, 9817576216 #### [facility] (DEFAULT) [address] [place] [address] 22160Sxhln Abs#3.3 l95Fsmz9.3-2.9[facility] HospitalComment on above:Performed By: #### [id number], 65380743, 7395252, 1720309676 #### [facility] (DEFAULT) [address] [place] [address] 32324Xhhgzykuzyd/100 WBC (Bld)39 %Jgboov41-62Mvzqyxpy Hospital Comment on above:Performed By: #### [id number], 27409565, 9063504, 8937253562 #### [facility] (DEFAULT) [address] [place] [address] 35483Xsjb Abs#0.4 p57Qeymhn0.0-0.8[facility] HospitalComment on above:Performed By: #### 9361206210, 18092719, 0806630, 9647058826 #### [facility] (DEFAULT) [address] [place] [address] 28061Rcii Abs#4.5 r86Mfikkv7.5-9.2M[facility] HospitalComment on above:Performed By: #### [id number], 59010277, 5829894, 0372430340 #### [facility] (DEFAULT) [address] [place] [address] 57710Enqrvnkokah/100 WBC (Bld)53 %Ukjsjt93-72Dagfqzaf Hospital Comment on above:Performed By: #### 7439304521, 82933802, 3109291, 2778695556 #### [facility] (DEFAULT) [address] [place] [address] 73504SOA w/ Auto Diffon 02-01-2386Wzi Diff?AutoInvalid Interpretation CodeLakehealth Beachwood Medical CenterComment on above:Performed By: #### [id number], 75949546, 1116028, 3502179407 #### [facility] (DEFAULT) [address] [place] [address] 20274Plcerhzgvrf distribution width (RBC) [Ratio]15.8 %High 11.5-15.0[facility] HospitalComment on above:Performed By: #### [id number], 34893732, 9481000, 0415871652 #### [facility] (DEFAULT) [address] [place] [address] 35834Wzlvkhfjab (Bld) [Volume fraction]40.1 %Zfqnzm56.7-40.4 [facility] Medical CenterComment on above:Performed By: #### 5279125387, 05108689, 4739492, 7700489582 #### [facility] (DEFAULT) [address] [place] [address] 61756Ptoaafgjbw (Bld) [Mass/Vol]13.4 g/kPKrnobt32.3-15.9 [facility] CenterComment on above:Performed By: #### 4005628764, 28595083, 4376500, 2435008806 #### [facility] (DEFAULT) [address] [place] [address] 47169RHN (RBC) [Entitic mass]29 rhLtdvqa81-61Sqdpmpla Hospital Comment on above:Performed By: #### 3481561975, 91141176, 6818024, 7852169447 #### [facility] (DEFAULT) [address] [place] [address] 81274LSES (RBC) [Mass/Vol]33 g/gSQjegly55-91Uerhykxs Hospital Comment on above:Performed By: #### 9517155518, 74806228, 9835963, 2592912874 #### [facility] (DEFAULT) [address] [place] [address] 83595NAX (RBC) [Entitic vol]88 iCRarixm65-796Ccvmkxgb Hospital Comment on above:Performed By: #### 0317074117, 11421881, 2348049, 6457900709 #### [facility] (DEFAULT) [address] [place] [address] 17262Nuihbjsn084 b10Xeihmj927-669Nixreneu HospitalComment on above:Performed By: #### 8043924360, 02891677, 9149208, 6692489288 #### [facility] (DEFAULT) [address] [place] [address] 31651Ivqnlfnu mean volume (Bld) [Entitic vol]7.7 fLNormal 6.3-10.2M[facility] HospitalComment on above:Performed By: #### [id number], 92878252, 5650033, 8776875398 #### [facility] (DEFAULT) [address] [place] [address] 61591ZFR8.57 d54Vyytjx4.70-5.30[facility] HospitalComment on above:Performed By: #### 4023626008, 86417231, 2595707, 3541682693 #### [facility] (DEFAULT) [address] [place] [address] 03799BSG1.5 y31Mgyfny5.5-10.5[facility] HospitalComment on above: Performed By: #### [id number], 44744813, 0442772, 0766468940 #### [facility] (DEFAULT) [address] [place] [address] 85864HHB Standardon 09-21-6135nHFJ Non AA>60Invalid Interpretation [facility] HospitalComment on above:Performed By: #### [id number], 53690762, 1421199, 4558199973 #### [facility] (DEFAULT) [address] [place] [address] 48135vIXL AA>60Invalid Interpretation [facility] Comment on above:Performed By: #### [id number], 75156963, 0473809, 8405215683 #### [facility] (DEFAULT) [address] [place] [address] 99385Zgrcqoh [Mass/Vol]3.9 g/dLNormal3.5-5.0[facility] Comment on above:Performed By: #### [id number], 88839158, 4779922, 6967460810 #### [facility] (DEFAULT) [address] [place] [address] 03577Pzkbxsd/Globulin [Mass ratio]0.9 {ratio}Low1.4-2.6M[facility] HospitalComment on above:Performed By: #### 9774374891, 24168165, 3793967, 0132034388 #### [facility] (DEFAULT) [address] [place] [address] 68019Qld Siwy267 IU/QAutj78-76Nynnrwty HospitalComment on above:Performed By: #### 1515212522, 18843126, 4839022, 1779477265 #### [facility] (DEFAULT) [address] [place] [address] 30810WHQ [Catalytic activity/Vol]28.0 U/TSvnbnr90.0-54.0 [facility] HospitalComment on above:Performed By: #### [id number], 24045259, 9459030, 3920699705 #### [facility] (DEFAULT) [address] [place] [address] 61489Ujwtk gap [Moles/Vol]13.8 mmol/LNormal5.0-19.0[facility] HospitalComment on above:Performed By: #### 8681543471, 91889317, 2203102, 6734135578 #### [facility] (DEFAULT) [address] [place] [address] 68008EBP [Catalytic activity/Vol]40 U/RJpqnht21-34Xaroxqba HospitalComment on above:Performed By: #### 3671795751, 78820917, 6899575, 9028356918 #### [facility] (DEFAULT) [address] [place] [address] 99832Alnc Total0.8 mg/dLNormal0.3-1.2[facility] HospitalComment on above:Performed By: #### 4303054414, 42774858, 4033619, 3495117922 #### [facility] (DEFAULT) [address] [place] [address] 65577Lrkfwvc [Mass/Vol]8.8 mg/dLLow8.9-10.3[facility] Hospital Comment on above:Performed By: #### [id number], 02341572, 9450095, 8890702794 #### [facility] (DEFAULT) [address] [place] [address] 91388Jvwzersq [Moles/Vol]97 mmol/PIvu471-109Mcrkdlgd Hospital Comment on above:Performed By: #### 3371008711, 07294523, 5522011, 5892578618 #### [facility] (DEFAULT) [address] [place] [address] 64747RO3 [Moles/Vol]25 mmol/QHajyvf61-10Neoytqxv Hospital Comment on above:Performed By: #### 7695462244, 13759226, 8325564, 5223296201 #### [facility] (DEFAULT) [address] [place] [address] 38080Jmtbecgfef [Mass/Vol]0.92 mg/dLNormal0.60-1.30[facility] HospitalComment on above:Performed By: #### 2199709552, 17032684, 0546253, 9247100750 #### [facility] (DEFAULT) [address] [place] [address] 69879Ovpiquud (S) [Mass/Vol]4.3 g/dLNormal1.5-4.3[facility] HospitalComment on above:Performed By: #### [id number], 88428611, 6085443, 4707193841 #### [facility] (DEFAULT) [address] [place] [address] 47168Aohxjqs [Mass/Vol]287.0 mg/tHKmte03.0-118.0[facility] HospitalComment on above:Performed By: #### [id number], 45804095, 8321899, 5005371087 #### [facility] (DEFAULT) [address] [place] [address] 08809Ozofcpbcwd293 mOsm/LInvalid Interpretation CodeLicking Memorial Hospital HospitalComment on above:Performed By: #### [id number], 17542185, 4194317, 2873854552 #### [facility] (DEFAULT) [address] [place] [address] 71385Fioiwfrpk [Moles/Vol]3.8 mmol/LNormal3.6-5.1[facility] HospitalComment on above:Performed By: #### 4549523712, 21216949, 6426146, 8257678214 #### [facility] (DEFAULT) [address] [place] [address] 75840Fottjqs [Mass/Vol]8.2 g/dLHigh6.5-8.1[facility] Comment on above:Performed By: #### 8598695134, 54341192, 8395492, 5147053023 #### [facility] (DEFAULT) [address] [place] [address] 50769Ekrgko [Moles/Vol]132.0 mmol/ICri564.0-144.0[facility] CenterComment on above:Performed By: #### 0735569518, 42513974, 6336746, 6646093390 #### [facility] (DEFAULT) [address] [place] [address] 82496Rzuh nitrogen [Mass/Vol]9 mg/dLNormal8-26[facility] Comment on above:Performed By: #### 1996917719, 42204324, 8042684, 9426933524 #### [facility] (DEFAULT) [address] [place] [address] 56734Fmov nitrogen/Creatinine [Mass ratio]9.7 mg/mgNormal 4.6-16.2MMemorial [facility] HospitalComment on above:Performed By: #### [id number], 69857313, 6236385, 7577704628 #### [facility] (DEFAULT) [address] [place] [address] 89380RH Clinical Summaryon 56-75-8911ON Clinical Summary [facility] - Emergency Department [address] [place] [address] ED Clinical Summary PERSON INFORMATION Name: NAILA BELTRAN Age: 53 Years Sex: FEMALE : 1970 MRN: Acct#: Visit Reason: Hyperglycemia; THIRSTY Arrival: 02/25/2024 20:59:36 Discharge: 02/25/2024 22:43:00 LOS: 000 01:44 Check In: 02/25/2024 20:59:36 Checkout:02/25/2024 22:43:00 Address: [facility] [address] PCP: HAIDER ADAMSON PROVIDER INFORMATION Provider Role [...] Location: Home PATIENT EDUCATION INFORMATION Instructions: Hyperglycemia, Hwil-bn-Jfcl Follow-Up: With: Address: When: HAIDER ADAMSON [facility] [address] [facility] [address] [place] [address] [id number] Within 3 to 5 days DIAGNOSIS: 1:Hyperglycemia Patient Understands: Yes - Patient/family/caregiver verbalizes understanding of instructions given Comment:UK HealthcareED Patient Summaryon 51-96-0721MY Patient Summary [facility] - Emergency Department [address] [place] [address] [id number] PATIENT DISCHARGE INSTRUCTIONS Patient Information Name: NAILA BELTRAN Age: 53 Years Date of : 1970 Reason For Visit: Hyperglycemia; THIRSTY Arrival Time: 02/25/2024 20:59:36 Primary Care Physician: HAIDER ADAMSON Attending Physician: Kevin Gracia MD Comment: Visit Diagnosis: Diagnoses This Visit Hyperglycemia ([id number]) Hyperglycemia (R73.9) The [facility] at [facility] is open Monday through Monday from 9A to 6P and Monday and Monday from 9A to 5P Prescription Information: If you have been given a prescription for narcotics, seek immediate medical attention if you have any difficulty breathing or any sudden status changes such as confusion andsleepiness. If you or anyone you know is experiencing suicidal thoughts, mental health, alcohol and/or drug addiction problems; contact the [facility] 19/09 Crisis Hotline -Text 4HHKG to 010115. If you received any narcotics, sedation, or [...] With: Address: When: HAIDER ADAMSON [address] [facility] [address] [place] [address] Within 3 to 5 days Medication Information: The exam and treatment you received today in the [facility] Emergency Department were for an urgent problem and are not intended as complete care. It is important for you to follow up with a doctor, nurse practitioner, or physician?s legal assistant for ongoing care. If your symptoms become worse or you donot improve as expected and you are unable [...] so we can reach you if necessary. [facility] Emergency Department has provided you with a complete list of medications post discharge. Please inform your composition weatherboard applier/provider of your visit and for further instruction [...] intl units oral capsule) 2,000 International_Unit Oral (givenby mouth) every day. Refills: 0. cyanocobalamin (Vitamin [...] tab(s) Oral (given by mouth) At bedtime. metformin-sitagliptin (Janumet 50 mg-500 mg oral tablet) 1 tab(s) Oral (given by mouth) 2 times perday. metformin-sitagliptin (Janumet 50 mg-500 mg oral tablet) take 1 tablet by mouth twice a day. metoprolol (metoprolol succinate 25 mg oral capsule, extended release) 1 cap(s) Oral (given by mouth) 2 times per day. multivitamin with iron (Iron 100 Plus oral tablet) tiZANidine (tiZANidine 2 mg oral tablet) 1 tab(s) Oral (given by mouth) every 8 hours. as needed asneeded for muscle spasm. Visit Information Allergies: Substance Reaction Symptoms Type Comments cephalexin Drug heparin Drug NSAIDs Drug (more content not included)...[facility] 09-64-4621Iwwf CollectedYesInvalid Interpretation [facility] HospitalComment on above: Performed By: #### [id number], 12049395, 1291262, [id number] #### [facility] (DEFAULT) [address] [place] [address] 37754XjyR2f Standardon 02-25-2024.Hb14.4Invalid Interpretation [facility] HospitalComment on above:Performed By: #### [id number], 10329125, 7225113, 2939474920 #### [facility] (DEFAULT) [address] [place] [address] 54236.Hgb A1c1.17 g/dLInvalid Interpretation [facility] HospitalComment on above:Performed By: #### [id number], 87739930, 8616338, 3285877810 #### [facility] (DEFAULT) [address] [place] [address] 24635Iibqfxm [Mass/Vol]226 mg/dLInvalid Interpretation Code [facility] HospitalComment on above:Performed By: #### [id number], 66806870, 9810502, 2945914507 #### [facility] (DEFAULT) [address] [place] [address] 93476DgY5y (Bld) [Mass fraction]9.5 %High4.6-6.2[facility] HospitalComment on above:Performed By: #### [id number], 71121316, 6112818, 8913075048 #### [facility] (DEFAULT) [address] [place] [address] 86765IZFP Glucose Levelon 65-56-9506Xocxezk [Mass/Vol]217 mg/dL [address] HospitalComment on above:Result Comment: OPR_ID=IN_LIST,TGC FLAG = False,Meter:[id number] Patrol Deputy Sheriff:[address] StacyPerformed By: #### [id number], 11534095, 6311028, [id number] #### [facility] (DEFAULT) [address] [place] [address] 07572Ovhlowt [Mass/Vol]252 mg/iHUnqv43-518Wemynmlk Hospital Comment on above:Result Comment: OPR_ID=IN_LIST,TGC FLAG = False,Meter:[id number] Patrol Deputy Sheriff:[address] StacyPerformed By: #### [id number] #### [facility] (DEFAULT) [address] [place] [address] 65105KP w Culture if Ind Standardon 46-31-6509Nxwuozvtxb UA NormalMagruder HospitalComment on above:Performed By: #### [id number] #### [facility] (DEFAULT) [address] [place] [address] 97355Eehnu (U)YellowNormalMagruder HospitalComment on above: Performed By: #### [id number] #### [facility] (DEFAULT) [address] [place] [address] 62287Xehrvbs?Not IndicatedInvalid Interpretation CodeMagruder HospitalComment on above:Result Comment: Result created by rule GL_MAGR_ADD_UA_CULT1Performed By: #### [id number] #### [facility] (DEFAULT) [address] [place] [address] 86070Tsjlitn (U) [Mass/Vol]mg/dLNormalMagruder HospitalComment on above:Performed By: #### [id number] #### [facility] (DEFAULT) [address] [place] [address] 67792Fccnxcs Ql (U)NegativeNormalMagruder HospitalComment on above:Performed By: #### [id number] #### [facility] (DEFAULT) [address] [place] [address] 98413Hncoe?Not IndicatedInvalid Interpretation CodeMagruder HospitalComment on above:Result Comment: Result created by rule GL_MAGR_ADD_UA_MICROPerformed By: #### [id number] #### [facility] (DEFAULT) [address] [place] [address] 35707IG BilirubinNegativeNormalMagruder HospitalComment on above:Performed By: #### [id number] #### [facility] (DEFAULT) [address] [place] [address] 67243PZ BloodNegativeNormalNEGATIVEMagruder HospitalComment on above:Performed By: #### [id number] #### [facility] (DEFAULT) [address] [place] [address] 63201NA ClarityCLEARNormalCLEARLicking Memorial Hospital HospitalComment on above:Performed By: #### [id number] #### [facility] (DEFAULT) [address] [place] [address] 41098EW Leuk EstNegativeNormalNEGATIVELicking Memorial Hospital HospitalComment on above:Performed By: #### [id number] #### [facility] (DEFAULT) [address] [place] [address] [id number] NitriteNegativeNormalNEGATIVELicking Memorial Hospital HospitalComment on above:Performed By: #### [id number] #### [facility] (DEFAULT) [address] [place] [address] [id number] pH6.9Sabyxw7-8Ewsldych HospitalComment on above: Performed By: #### [id number] #### [facility] (DEFAULT) [address] [place] [address] [id number] ProteinNegativeNormalNEGATIVELicking Memorial Hospital HospitalComment on above:Performed By: #### [id number] #### [facility] (DEFAULT) [address] [place] [address] [id number] Spec Grav1.058Gsxomd1.001-1.035[facility] HospitalComment on above:Performed By: #### [id number] #### [facility] (DEFAULT) [address] [place] [address] [id number] Urobilinogen2.0 mg/dLAbnormal0.2-1.0[facility] Hospital Comment on above:Performed By: #### [id number] #### [facility] (DEFAULT) [address] [place] [address] [id number] SourceClean CatchNormalLicking Memorial Hospital HospitalComment on above:Performed By: #### [id number] #### [facility] [facility] [address] [place] [address] 38490Bxxskypt Orderson 24-52-4312Zuyvxbhl Orders [id number]#1.00OTGTIFFNormCincinnati VA Medical Center 25-87-1413PMBNIikksicll (AVXRMO) NAILA BELTRAN ([id number]) 1970 F Date Time Provider Department 02/01/24 [...] Intranasal Daily June 13, 2017 7:29am 06-13-2017 [facility] ([id number]) - sitaGLIPtin-metFORMIN (JANUMET) 50-500 mg per tablet Take [...] 40 mg by mouth once daily. 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 - Emergency Department [address] [place] [address] ED Clinical Summary PERSON INFORMATION Name: NAILA BELTRAN Age: 53 Years Sex: FEMALE : 1970 MRN: Acct#: Visit Reason: Wrist pain-swelling; LT HAND, WRIST PAIN Arrival: 01/25/2024 17:28:36 Discharge: 01/25/2024 20:07:00 LOS: 000 02:39 Check In: 01/25/2024 17:28:36 Checkout:01/25/2024 20:07:00 Address: [address] [place] [address] PCP: HAIDER ADAMSON PROVIDER INFORMATION Provider Role Assigned Unassigned Gina RN, Hope Valdivia ED Nurse 01/25/2024 17:54:21 Nehemiah Cummings MD ED Provider 01/25/2024 19:02:33 Mary Anne Rider POMOLOGIST Nurse 01/25/2024 19:22:29 VITALS INFORMATION Vital Sign [...] Adult Follow-Up: With: Address: When: HAIDER ADAMSON [facility] [facility] [address] [place], [place] [id number] Business (1) Within 3 to 5 days DIAGNOSIS: Muscle strain of left forearm Patient Understands: Yes - Patient/family/caregiver verbalizes understanding of instructions given Comment:UK HealthcareED Patient Summary [id number] Patient Summary [facility] Emergency Department [address] [place], [place] [address] PATIENT DISCHARGE INSTRUCTIONS Patient Information Name: NAILA BELTRAN Age: 53 Years Date of : 1970 Reason For Visit: Wrist pain-swelling; LT HAND, WRIST PAIN Arrival Time: 01/25/2024 17:28:36 Primary Care Physician: HAIDER ADAMSON Attending Physician: Melvin Lane MD Comment: Visit Diagnosis: Diagnoses This Visit Muscle strain of left forearm (S56.912A) Wrist pain-swelling ([id number]) The Pharmacy at [facility] is open Monday through Monday from 9A to 6P and Monday and Monday from 9A to 5P Prescription Information: If you have been given a prescription for narcotics, seek immediate medical attention if you have any difficulty breathing or any sudden status changes such as confusion andsleepiness. If you or anyone you know is experiencing suicidal thoughts, mental health, alcohol and/or drug addiction problems; contact the [facility] 19/09 Crisis Hotline -Text 4HIAR to 707100. If you received any narcotics, sedation, or [...] With: Address: When: HAIDER ADAMSON [address] [facility] [address] [place] [address] Business (1) Within 3 to 5 days Medication Information: The exam and treatment you received today in the [facility] Emergency Department were for an urgent problem and are not intended as complete care. It is important for you to follow up with a doctor, nurse practitioner, or physician?s legal assistant for ongoing care. If your symptoms become worse or you donot improve as expected and you are unable [...] so we can reach you if necessary. [facility] Emergency Department has provided you with a complete list of medications post discharge. Please inform your composition weatherboard applier/provider of your visit and for further instruction on these medications. Any specific questions regarding your chronic medications and dosages should be discussed with your primary care physician(s) and/or pharmacist. New Medications The Pharmacy at [facility], [address] [place] [phone], [phone] naproxen (EC-Naprosyn 500 mg oral delayed release [...] intl units oral capsule) 2,000 International_Unit Oral (givenby mouth) every day. Refills: 0. cyanocobalamin (Vitamin [...] tab(s) Oral (given by mouth) At bedtime. metformin-sitagliptin (Janumet 50 mg-500 mg oral tablet) 1 tab(s) Oral (given by mouth) 2 times perday. metformin-sitagliptin (Janumet 50 mg-500 mg oral tablet) take 1 tablet by mouth twice a day. metoprolol (metoprolol succinate 25 mg oral capsule, extended release) 1 cap(s) Oral (given by mouth) 2 times per day. multivitamin with iron (Iron 100 Plus oral tablet) tiZANidine (tiZANidine 2 mg oral tablet) 1 tab(s) Oral (given by mouth) every 8 hours. as needed asneeded for muscle s (more content not included)...Normal [facility] Summaryon [id number] SummaryMLBase 64 GygkoyabYMl9nIe+PGhlYWQ+UC9YIKHpP68fkDPudO6nP1WMKFfUDvhgCOTGVUeYQfUbmqJaDP0usUPp ZXJu [file] N (more content not included)...[facility] HealthcareED Clinical Summaryon [id number] [facility] [address] [place] [address] ED Clinical Summary PERSON INFORMATION Name: NAILA BELTRAN Age: 53 Years Sex: FEMALE : 1970 MRN: Acct#: Visit Reason: Headache; HEADACHE Arrival: 12/30/2023 23:58:30 Discharge: 12/31/2023 00:56:00 LOS: 000 00:58 Check In: 12/30/2023 23:58:30 Checkout:12/31/2023 00:56:00 Address: [address] [place] [address] PCP: HAIDER ADAMSON PROVIDER INFORMATION Provider Role [...] for procedure with neck injection by her paintings restorer for her migraines and neck problem. Stated [...] 1 tablet by mouth twice a day Wesleyra 500 mg oral tablet: 1,500 mg = [...] PRN: as needed for muscle spasm, 90 tab(s),0 Refill(s). Past Medical/ Family/ Social History Medical history: Resolved DVT (deep venous thrombosis) ([id number]): Resolved. Hysterectomy (579649932): Resolved. Visual discomfort (05797778): Resolved. Seizure disorder (345.90): Resolved. Serum iron level abnormal (963381357): Resolved. Hyponatremia (691940749): Resolved. Hypokalemia (78190815): Resolved. 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 Stated [...] PRN: as needed for muscle spasm, 90 tab(s),0 Refill(s). Past Medical/ Family/ Social History Medical history: Resolved DVT (deep venous thrombosis) ([id number]): Resolved. Hysterectomy (457767225): Resolved. Visual discomfort (96077452): Resolved. Seizure disorder (345.90): Resolved. Serum iron level abnormal (181778506): Resolved. Hyponatremia (625870959): Resolved. Hypokalemia (72604512): Resolved. 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 Surgical history: Rotator cuff repair (521971729) on 08/11/2016 at 46 Years. Comments: 08/15/2016 10:38 Teresita Boo LPN Left arthrocopys with rotator cuff debridement and subacromial bursectomy US vascular - Doppler effect (851901475) on 06/18/2016 at 45 Years. Comments: 06/20/2016 11:47 Teresita Boo LPN No evidence of DVT Neck injection (254383046) on 04/14/[address] of chest (062157393) on 01/03/2016 at 45 Years. radiofrequency ablation of medial branch of cervical nerve usuing fluoroscopic guidance on 10/10/2014 at 44 Years. MRI on 04/11/2014 at 43 Years. Comments: 06/01/2016 11:48 EDT - Teresita Queen LPN Degenerative changes and disc buldging. Neural foraminal narrowing as described US vascular - Doppler effect (072897735) on 12/27/2013 at 43 Years. Comments: 06/19/2015 13:25 EDT - Cielo Moe IMPRESSION: GROSSLY UNREMARKABLE IMAGING STUDY OF THE VISUALIZED DEEP VENOUS SYSTEM OF THE LEFT LEG DESCRIBED, NO DEFINITE EVIDENCE OF DEEP VENOUS THROMBOSIS CAN BE IDENTIFIED. Colonoscopy (162841351) on 04/22/2013 at 42 (more content not included)...Normal [facility] CenterED Patient Summaryon [id number] [facility] - [facility] Department [address] [place], [place] [address] PATIENT DISCHARGE INSTRUCTIONS Patient Information Name: NAILA BELTRAN Age: 53 Years Date of : 1970 Reason For Visit: Headache; HEADACHE Arrival Time: 12/30/2023 23:58:30 Primary Care Physician: HAIDER ADAMSON Attending Physician: Melvin Lane MD Comment: Visit Diagnosis: Diagnoses This Visit Headache ([id number]) Intractable migraine without aura and without status migrainosus (G43.019) The Pharmacy at [facility] is open Monday through Monday from 9A to 6P and Monday and Monday from 9A to 5P Prescription Information: If you have been given a prescription for narcotics, seek immediate medical attention if you have any difficulty breathing or any sudden status changes such as confusion andsleepiness. If you or anyone you know is experiencing suicidal thoughts, mental health, alcohol and/or drug addiction problems; contact the [facility] 19/09 Crisis Hotline -Text 8KXSB pv 913067. If you received any narcotics, sedation, or [...] HAIDER ADAMSON [address] [place] [address] Business (1) Within 2 to 4 days [...] may include severe infection, meningitis, intracranial hemorrhage orstroke. On your evaluation today, no specific emergency [...] specialist for reevaluation each time you have beento the emergency department for treatment of your headache. Additional treatment or diagnostic workup may be necessary. Review headache instructions provided. Keep yourself well hydrated. Resume your routine medication as instructed by your doctor. Contact your family doctor or the emergency department you have any questions or concerns regardingyour treatment today. Medication Information: The exam and treatment you received today in the [facility] Emergency Department were for an urgent problem and are not intended as complete care. It is important for you to follow up with a doctor, nurse practitioner, or physician?s legal assistant for ongoing care. If your symptoms become worse or you donot improve as expected and you are unable [...] so we can reach you if necessary. [facility] Emergency Department has provided you with a complete list of medications post discharge. Please inform your composition weatherboard applier/provider of your visit and for further instruction [...] every day. atorvastatin (at (more content not included)...[facility] [id number] (AVXRMO) NAILA BELTRAN ([id number]) 1970 F Date Time Provider Department 11/06/23 MARTINE RODRIGUEZ AVXRMO During your visit today, we recorded the following information about you: Martine Rodriguez RT(R) 11/06/2023 4:05 PM Signed Called Patient [...] Intranasal Daily June 13, 2017 7:29am 06-13-2017 [facility] ([id number]) - sitaGLIPtin-metFORMIN (JANUMET) 50-500 mg per tablet Take [...] 40 mg by mouth once daily. - Comp.Stocking,Thigh,Long,X-Lrg misc Wear stocking daily - Multivitamins ORAL Chew None Entered Problem List As Of Date 11/06/2023 Noted Resolved Hypercoagulable state [D68.59] 01/16/2013 Vascular disease [I99.9] 11/15/2017 Anticoagulated [Z79.01] 02/06/2020 HLD (hyperlipidemia) [E78.5] 02/06/2020 Coronary artery disease of petersburg artery of brit*02/06/2020 Diabetes mellitus type 2 [...] 08/09/2023 Encounter Status:Closed by MARTINE RODRIGUEZ on 11/06/23[facility] POSTPROC EVALon [id number] POSTPROC EVALHNO ID: [id number] Author: AZIZA SKINNER MD Service: Anesthesiology Author Type: Anesthesiologist Type: Anesthesia Postprocedure Evaluation Filed: 08/22/2023 10:34 Note Text: POST ANESTHESIA EVALUATION NOTE : 1970 Procedure Summary Date: 08/22/23 Room / Location: [facility] Anesthesia Start: 949 Anesthesia Stop: 1026 Procedure: EGD - THERAPEUTIC, [...] August 22, 2023 TIME: 10:34 AM CSN: [id number] PRE-OPon 08-22-2023 ANES PRE-OPHNO ID: [id number] Author: AZIZA SKINNER MD Service: Anesthesiology Author Type: Anesthesiologist Type: Anesthesia Preprocedure Evaluation Filed: 08/22/2023 09:35 Note Text: ANESTHESIOLOGY DAY OF SURGERY NOTE : 1970 Procedure Information Date/Time: 08/22/23929 Scheduled providers: Martine Bowling MD Procedure: EGD - THERAPEUTIC, EUS, OR TUBE INTERVENTIONS Location: [facility] Estimated body mass index is 38.37 kg/m? as calculated from the following: Height as of 08/09/23: 170.2 cm (5' 7 ). Weight as of 08/09/23: 111.1 kg (245 lb). 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 Patient / Responsible Libertarian agrees to proceed: yes Patient / Surrogate [...] mg tablet Take 10 mg by mouth. sitaGLIPtin-metFORMIN (JANUMET) 50-500 mg per tablet Take [...] once daily. Comp.Stocking,Thigh,Long,X-Lrg misc Wear stocking daily tiZANidine (ZANAFLEX) 2 [...] Intranasal Daily June 13, 2017 7:29am 06-13-2017 [facility] ([id number]) aspirin 81 mg chewable tablet q 24 HR. pregabalin (LYRICA) 150 mg capsule Take 150 mg by mouth twice daily. (Patient not taking: Reported on 08/09/2023) Multivitamins ORAL Chew None Entered Facility-Administered Medications as o (more content not included)...Normal [facility] HospitalEG [facility] observation Narrativeon [id number] Patient Name: Naila Beltran Procedure Date: 08/22/2023 9:41 AM Date of : 1970 Admit Type: Outpatient Age: 53 Room: [place] [address] Gender: Female Note Status: Finalized Attending MD: Martine Bowling MD, [id number] Procedure: Upper GI endoscopy Indications: For therapy [...] physician, the nurse, the anesthesiologist and the gem technician in the pre-procedure area in the endoscopy [...] collected. Recommendation: - Discharge (more content not included)...[facility]ATIONKind[facility] Hospital DaytonRadiology Study observation (narrative)[facility] DaytonGLUCOSE, BLOOD (POC)on [id number] [Mass/Vol]130 mg/qDLphthezs14 - 99 mg/dLKindred Hospital DaytonComment on above:Location:[facility], [address] [place] [address], [facility] The Accu-Chek Inform II glucose meter has [...] above situations. Interpretation and review of laboratory resultsAbnormalCleveland Parkview HealthGlucose [Mass/Vol]121 mg/rIJdxtbhpc17 - 99 mg/dLOhio State Harding Hospital on above:Location:[facility], [facility] [place], [place], [address] The Accu-Chek Inform II glucose meter has [...] above situations. Interpretation and review of laboratory resultsAbnormalClevelHolzer Health System PHYSICALon [id number] PHYSICALHNO ID: [id number] Author: HOWIE DELONG PA-C Service: General Surgery Author Type: Physician Trade Show Specialist Type: H&P Filed: 08/22/2023 08:48 Note Text: [...] Endoscopic Pyloromyotomy. Medication reconciliation list reviewed in [facility]. Past medical history, past surgical history, social history and family history reviewed and updated in [facility]. ALLERGIES Allergen Reactions Aspirin Unknown Heparin Analogues [...] Beltran DATE: August 22, 2023 TIME: 8:03 [facility] PROGo [id number] [facility] ID: [id number] Author: VERONICA MAO RN Service: ? Author Type: Registered Nurse Type: Nursing Progress Note Filed: 08/23/2023 12:23 Note Text: [facility] ENDOSCOPY POST PROCEDURE FOLLOW UP CALL [phone] (home) Date Phone Call Made: 08/23/2023 Attempt: [...] your experience more pleasant? No Veronica Mao RNNoCedar County Memorial Hospital GI endoscopyon [id number] GI endoscopyBo[facility] Hospital Center [facility] Patient Name: Naila Beltran Procedure Date: 08/22/2023 9:41 AM Date of : 1970 Admit Type: Outpatient Age: 53 Room: [place] [address] Gender: Female Note Status: Finalized Attending MD: Martine Bowling MD, [id number] Procedure: Upper GI endoscopy Indications: For therapy [...] physician, the nurse, the anesthesiologist and the gem technician in the pre-procedure area in the endoscopy [...] 1 month. Procedure Code(s): --- Professional --- 62815, Pyloroplasty 70435, Unlisted procedure, stomach Diagnosis Code(s): --- Professional --- K31.84, Gastroparesis CPT copyright 2020 [employer]. All rights reserved. The codes documented in this report are preliminary and upon medical collections review may be revised to meet current compliance requirements. Attending Participation: I personally performed the entire procedure. Scope In: 10:06:27 AM Scope Out: 10:16:45 AM MD Martine Goyal MD 08/22/2023 10:19:59 AM This report has been signed electronically by Martine Bowling MD Number of Addenda: 0 Note Initiated On: 08/22/2023 9:41 AM Estimated Blood Loss: Estimated blood loss was minimal.[facility] [id number] Telephone (The Rowing TeamP) NAILA BELTRAN ([id number]) 1970 F Date Time Provider Department 08/18/23 MARTINE BOWLING During your visit today, we recorded the following information about you: Katja iRos RN 08/18/2023 4:43 PM Signed Completed pre-procedure call for patients scheduled GPOEM/POP on Monday No answer - left message on reminding of diet- full liquids Monday and [...] DO - Fully Assessed 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 - Comp.Stocking,Thigh,Long,X-Lrg misc Wear stocking daily - pregabalin (LYRICA) 150 mg capsule Take 150 mg by mouth twice daily. - Multivitamins ORAL Chew None Entered Problem List As Of Date 08/18/2023 Noted Resolved Hypercoagulable state [D68.59] 01/16/2013 Vascular disease [I99.9] 11/15/2017 Anticoagulated [Z79.01] 02/06/2020 HLD (hyperlipidemia) [E78.5] 02/06/2020 Coronary artery disease of peters[place] artery of brit*02/06/2020 Diabetes mellitus type 2 [...] 08/09/2023 Encounter Status:Closed by KATJA RIOS on 08/18/23[facility] Terrenceroxy [id number] PROGHNO ID: [id number] Author: ARIAN AHMADI RN Service: ? Author Type: Registered Nurse Type: Nursing Progress Note Filed: 08/17/2023 10:37 Note Text: [facility] ENDOSCOPY PRE PROCEDURE CALL Johnna. I'm calling from [facility] endoscopy to provide you with the information for your surgery/procedure tomorrow. 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 Yes When anesthesia or sedation is being given: Patient instructed you must have an adult interstate bus driver because you will not be able to work or drive for the rest of the day after your test.Yes Patient instructed to have a responsible, adult interstate bus driver to take them home after the procedure Yes. Due to having sedation, there is no working or driving the day of the procedure. Your interstate bus driver is allowed to wait here with you or they may drop you off and come back to pick you up. Patient instructed: Do not eat anything the morning of the procedure, including gum, hard candy and mints.Yes Patient instructed not bring any valuables, jewelry, or sethi and wear comfortable clothing. Do not wear makeup, lotion, or finger dominican. Yes Patient instructed: Please bring a list [...] given Any barriers to Patient learning (confusion? Reaming Machine Operator For Plastic needed?): Patient/Patient Equal Opportunity Specialist responded appropriately on phone. Please complete your Pre-Check In paperwork in My Chart if applicable. If patient needs to reschedule please call: [phone] [facility] phone number: [phone] Type of instruction given: Verbal by telephone contact.[facility]kaSouthpointMem[facility] [id number] (MovieLineI) NAILA BELTRAN ([id number]) 1970 F Date Time Provider Department 08/16/23 [...] detailed msg for Dr Nguyễn at his [place] office ([phone]). Awaiting fax or callback Rosangela Matos RN [...] Intranasal Daily June 13, 2017 7:29am 06-13-2017 [facility] ([id number]) - sitaGLIPtin-metFORMIN (JANUMET) 50-500 mg per tablet Take [...] 40 mg by mouth once daily. - Comp.Stocking,Thigh,Long,X-Lrg misc Wear stocking daily - pregabalin (LYRICA) 150 mg capsule Take 150 mg by mouth twice daily. - Multivitamins ORAL Chew None Entered Problem List As Of Date 08/16/2023 Noted Resolved Hypercoagulable state [D68.59] 01/16/2013 Vascular disease [I99.9] 11/15/2017 Anticoagulated [Z79.01] 02/06/2020 HLD (hyperlipidemia) [E78.5] 02/06/2020 Coronary artery disease of peters[place] artery of brit*02/06/2020 Diabetes mellitus type 2 [...] 08/09/2023 Encounter Status:Closed by ROSANGELA MATOS on 08/16/23[facility] [id number] (PASHEF) NAILA BELTRAN ([id number]) 1970 F Date Time Provider Department 08/10/23 CHECO SPIVEY During your visit today, we recorded the following information about you: Casey Mcadams PA-C 08/10/2023 12:[address] Spivey, This patient was seen by me for virtual PACC for upcoming EGD with endoscopic per oral pyloromyotomy scheduled with Dr. Bowling on 08/21 at [facility]. Patient is on Eliquis for Factor V [...] Casey Mcadams PA-C 08/10/2023 4:10 PM Signed [email or web address] message sent to patient with instructions. Thank you! Casey Mcadams PA-C PACC Casey Mcadams PA-C 08/10/2023 4:18 PM Signed Patient confirmed receipt of [email or web address] message with instructions Casey Mcadams PA-C 08/10/2023 [...] Intranasal Daily June 13, 2017 7:29am 06-13-2017 [facility] ([id number]) - sitaGLIPtin-metFORMIN (JANUMET) 50-500 mg per tablet Take [...] 40 mg by mouth once daily. - Comp.Stocking,Thigh,Long,X-Lrg misc Wear stocking daily - pregabalin (LYRICA) 150 mg capsule Take 150 mg by mouth twice daily. - Multivitamins ORAL Chew None Entered Problem List As Of Date 08/10/2023 Noted Resolved Hypercoagulable state [D68.59] 01/16/2013 Vascular disease [I99.9] 11/15/2017 Anticoagulated [Z79.01] 02/06/2020 HLD (hyperlipidemia) [E78.5] 02/06/2020 Coronary artery disease of peters[place] artery of brit*02/06/2020 Diabetes mellitus type 2 (HCC) [E11.9] 02/06/2020 GERD (gastroesophageal reflux disease) [K21.9] 02/06/2020 Personal history of DVT (deep vein thrombosis) * (more content not included)... NormalTogus VA Medical CenterTORY PHYSICALon [id number] PHYSICALHNO ID: [id number] Author: CASEY MCADAMS PA-C Service: ? Author Type: Physician Trade Show Specialist Type: H&P Filed: 08/21/2023 10:34 Note Text: PREANESTHESIA CONSULT CLINIC TELEHEALTH VISIT Patient has been identified by name and date of : Yes This is a virtual visit using Sovexom Video Visit. It require patient-provider interaction for the medical decision making as documented below. Reason for contact: PACC visit Accompanied by: Self Scheduled Surgery: EGD with endoscopic per oral pyloromyotomy I have communicated my name and active licensure. The patient's identity and physical location were verified at the time of this visit. Either the patient or their legal passenger service representative has been informed of the risks [...] 4.4 cm ascending aortic aneurysm. Stable per arranging funeral director Dr. Nguyễn's note with plan for yearly [...] spirometry. Stable. 10. PVD (peripheral vascular disease) (HCC) History of stents and x2 lower extremity [...] of for her procedure. 15. Seizure disorder (HCC) Controlled on Keppra. Patient reports last seizure was about 6-8 years ago. Stable per patient. METS: Walk a block or two on level ground (2.75 METs) Climb a flight of stairs or walk up a hill (5.50 METs) Patient denies any chest pain or undue shortness of breath with the above physical activity. Goes to [place] sometimes, active and cares for 2 year [...] Anticoagulated Hld (Hyperlipidemia) Coronary Artery Disease of [place] Artery of [place] Heart With Stable Angina Pectoris (Hcc) Diabetes Mellitus Type 2 (Hcc) Gerd (Gastroesophageal Reflux Disease) Personal History of Dvt (Deep Vein Thrombosis) Fatty Liver Morbid Obesity (Hcc) Seizures (Hcc) Sob (Shortness of Breath) Pvd (Peripheral Vascular Disease) (Hcc) Ascending Aorta Dilation (Hcc) History of Covid-19 (more content not included)...NormalUc HealthACETYLCHOLINE REC BINDING ABon 11-25-6456PICMFZCTLXDLZ BINDING, QUALNegativeNormalNegative [facility] HospitalComment on above:Order Comment: Specimen Type: BLOOD SPECIMENOrdering Facility: [facility] Address:[address] [place], [place] [address]Result Comment: Anti-acetylcholine receptor binding antibody test is used as an aid in diagnosis ofmyasthenia gravis. A negative result cannot exclude myasthenia gravis. Clinical correlation is required.Performed By: #### ACHRAB, 44564-8 ####[facility] LABCLIA [id number] [place] [address] [place] AMERICAAcetylcholine receptor binding Ab (S) [Moles/Vol]0.16 nmol/LNormal<0.21[facility] Comment on above:Order Comment: Specimen Type: BLOOD SPECIMENOrdering Facility: [facility] Address:[address] [place] [address] Performed By: #### ACHRAB, 78362-5 ####[facility] LABIA [id number] [place] [address] [place] AMINO ACIDS, PLASMA W/ CONSULTATIONon 51-36-9030Weovvjb [Moles/Vol]413 umol/L Nydold859-000Iyvqisllani HospitalComment on above:Order Comment: Specimen Type: BLOOD SPECIMENOrdering Facility: [facility] Address:[address] [place], [place] [address]Performed By: #### PAABI ####[facility] LABIA [id number] [place] [address] [place] AMERICAAlloisoleucine [Moles/Vol]<4Tlgvee6-1Mexxnjmevxm Hospital Comment on above:Order Comment: Specimen Type: BLOOD SPECIMENOrdering Facility: [facility] Address:[address] [place] [address] Performed By: #### PAABI ####[facility] LABIA [id number] [place] [address] [place] AMERICAAlpha aminoadipate [Moles/Vol]<3Mhfcyc9-2OzwikymfdxwParkland Health Center on above:Order Comment: Specimen Type: BLOOD SPECIMENOrdering Facility: [facility] Address:[address] [place], [place] [address]Performed By: #### PAABI ####[facility] LABIA [id number] [address]AND[address] STREETAMINO ACID CONSULTATION, PLASMA [facility] on above:Order Comment: Specimen Type: BLOOD SPECIMENOrdering Facility: [facility] Address:[address] [place], [place] [address]Result Comment: This plasma amino acid analysis shows no significant abnormalities. Reference intervals from Isaura E, Barb MG, Beltran HARMONY, and Manjinder DK: Biochemical Genetics: A Laboratory Manual, Copyright 1989 by [employer] Reference intervals not established for some amino acids. This test was developed and its performance characteristics determined by [facility] ([facility]). It has not been cleared or approved by the FDA. [facility] is regulated under CLIA as qualified to perform high complexity testing. Thistest is used for clinical purposes. It should not be regarded as investigational or for research.Performed By: #### PAABI ####[facility] LABIA [id number] [address] OF [place] AMINO ACIDS REVIEW, PLASMAReviewed by Kevin Hardin MD, Ph.D ([id number])[facility] on above:Order Comment: Specimen Type: BLOOD SPECIMENOrdering Facility: [facility] Address:[address] [place], [place] [address]Performed By: #### PAABI ####[facility] LABCLIA [id number] [place] [address] [place] AMERICAArginine [Moles/Vol]29 umol/SAzdwjf94-725Helcvzfmlzv HospitalComment on above:Order Comment: Specimen Type: BLOOD SPECIMENOrdering Facility: [facility] Address:[address] [id number] By: #### PAABI ####[facility] LABCLIA [id number] [place] [address] [place] AMERICAAsparagine [Moles/Vol]46 umol/L Ytbise12-18Pwbepnzgeft HospitalComment on above:Order Comment: Specimen Type: BLOOD SPECIMENOrdering Facility: [facility] Address:[address] [place], [place] [address]Performed By: #### PAABI ####[facility] LABCLIA [id number] [place] [address] [place] AMERICAAspartate [Moles/Vol]3 umol/LNormal1-25[facility] Comment on above:Order Comment: Specimen Type: BLOOD SPECIMENOrdering Facility: [facility] Address:[address] [place], [place] [address] Performed By: #### PAABI ####[facility] LABCLIA [id number] [place] [address] [place] AMERICACitrulline [Moles/Vol]12 umol/GObqtxt36-16Gxdkhcycknx HospitalComment on above:Order Comment: Specimen Type: BLOOD SPECIMENOrdering Facility: [facility] Address:[address] [id number] By: #### PAABI ####[facility] LABCLIA [id number] [place] [address] [place] AMERICACystine [Moles/Vol]44 umol/LNormal 5-82Sok[facility] HospitalComment on above:Order Comment: Specimen Type: BLOOD SPECIMENOrdering Facility: [facility] Address:[address] [place], [place] [address]Performed By: #### PAABI ####[facility] LABCLIA [id number] [place] [address] [place] AMERICAGlutamate [Moles/Vol]51 umol/TRqxxaf57-265Ubgujapnkvk HospitalComment on above:Order Comment: Specimen Type: BLOOD SPECIMENOrdering Facility: [facility] Address:[address] [place], [place] [address]Performed By: #### PAABI ####[facility] LABCLIA [id number] [place] [address] [place] AMERICAGlutamine [Moles/Vol]641 umol/L Qtdksb616-655Upzatbxqaib HospitalComment on above:Order Comment: Specimen Type: BLOOD SPECIMENOrdering Facility: [facility] Address:[address] [place], [place] [address]Performed By: #### PAABI ####[facility] LABCLIA [id number] [place] [address] [place] AMERICAGlycine [Moles/Vol]242 umol/WMdjhwd736-633Qfwpxdnqxhf Hospital Comment on above:Order Comment: Specimen Type: BLOOD SPECIMENOrdering Facility: [facility] Address:[address] [place] [address] Performed By: #### PAABI ####[facility] LABCLIA [id number] [place] [address] [place] AMERICAHistidine [Moles/Vol]69 umol/RIgi31-907Hllnsfqdtvm HospitalComment on above:Order Comment: Specimen Type: BLOOD SPECIMENOrdering Facility: [facility] Address:[address] [place], [place] [address]Performed By: #### PAABI ####[facility] LABCLIA [id number] [place] [address] [place] AMERICAHydroxylysine [Moles/Vol]<1High<=0 [facility] HospitalComment on above:Order Comment: Specimen Type: BLOOD SPECIMENOrdering Facility: [facility] Address:[address] [place], [place] [address]Performed By: #### PAABI ####[facility] LABCLIA [id number] [place] [address] [place] AMERICAHydroxyproline [Moles/Vol]7 umol/LNormal0-53[facility] HospitalComment on above:Order Comment: Specimen Type: BLOOD SPECIMENOrdering Facility: [facility] Address:[address] [place], [place] [address] Performed By: #### PAABI ####[facility] LABCLIA [id number] [place] [address] [place] AMERICAIsoleucine [Moles/Vol]66 umol/ARinnoo92-397Zalcbycyspu HospitalComment on above:Order Comment: Specimen Type: BLOOD SPECIMENOrdering Facility: [facility] Address:[address] [place], [place] [address]Performed By: #### PAABI ####[facility] LABCLIA [id number] [place] [address] [place] AMERICALeucine [Moles/Vol]122 umol/L Tvkvqo31-332Utliezvgsgp HospitalComment on above:Order Comment: Specimen Type: BLOOD SPECIMENOrdering Facility: [facility] Address:[address] [place], [place] [address]Performed By: #### PAABI ####[facility] LABCLIA [id number] [place] [address] [place] AMERICALysine [Moles/Vol]181 umol/ZEfstwn606-746Jprjlvyxobm Hospital Comment on above:Order Comment: Specimen Type: BLOOD SPECIMENOrdering Facility: [facility] Address:[address] [place], [place] [id number] Performed By: #### PAABI ####[facility] LABCLIA [id number] [place] [id number] [place] AMERICAMethionine [Moles/Vol]18 umol/PPlxbnd20-67Xkbtkvvuuyh HospitalComment on above:Order Comment: Specimen Type: BLOOD SPECIMENOrdering Facility: [facility] Address:[address] [place], [place] [address]Performed By: #### PAABI ####[facility] LABCLIA [id number] [facility] [place] [address] [place] AMERICAOrnithine [Moles/Vol]78 umol/L Fopttc04-213Jdaanxcdjne HospitalComment on above:Order Comment: Specimen Type: BLOOD SPECIMENOrdering Facility: [facility] Address:[address] [place], [place] [address]Performed By: #### PAABI ####[facility] LABCLIA [id number] [place] [address] [place] AMERICAPhenylalanine [Moles/Vol]70 umol/XAeaeis87-19Oxhroixpqjz HospitalComment on above:Order Comment: Specimen Type: BLOOD SPECIMENOrdering Facility: [facility] Address:[address] [place], [place] [address]Performed By: #### PAABI ####[facility] LABCLIA [id number] [place] [address] [place] Proline [Moles/Vol]178 umol/ITldaoz93-434Spaaexoxavh HospitalComment on above: Order Comment: Specimen Type: BLOOD SPECIMENOrdering Facility: [facility] Address:[address] [place], [place] [address]Performed By: #### PAABI ####[facility] LABCLIA [id number] [place] [address] [place] AMERICASarcosine [Moles/Vol]<1High<=0 [facility] HospitalComment on above:Order Comment: Specimen Type: BLOOD SPECIMENOrdering Facility: [facility] Address:[address] [place], [place] [address]Performed By: #### PAABI ####[facility] LABCLIA [id number] [place] [address] [place] AMERICASerine [Moles/Vol]78 umol/ZVmxrie94-782Zvqtysojxhi HospitalComment on above:Order Comment: Specimen Type: BLOOD SPECIMENOrdering Facility: [facility] Address:[address] [place], [place] [address]Performed By: #### PAABI ####[facility] LABCLIA [id number] [place] [address] [place] AMERICATaurine [Moles/Vol]49 umol/LLow 54-210Southpointe HospitalComment on above:Order Comment: Specimen Type: BLOOD SPECIMENOrdering Facility: [facility] Address:[address] [place], [place] [address]Performed By: #### PAABI ####[facility] LABCLIA [id number] [place] [address] [place] AMERICAThreonine [Moles/Vol]161 umol/ZHhimwd63-182Exwwuhbvuvl HospitalComment on above:Order Comment: Specimen Type: BLOOD SPECIMENOrdering Facility: [facility] Address:[address] [place] [address] Performed By: #### PAABI ####[facility] LABCLIA [id number] [place] [address] [place] AMERICATyrosine [Moles/Vol]74 umol/RQfspci66-196Qmfougzkgna HospitalComment on above:Order Comment: Specimen Type: BLOOD SPECIMENOrdering Facility: [facility] Address:[address] [place], [place] [address]Performed By: #### PAABI ####[facility] LABCLIA [id number] [place] [address] [place] AMERICAValine [Moles/Vol]215 umol/LNormal 119-336[facility] HospitalComment on above:Order Comment: Specimen Type: BLOOD SPECIMENOrdering Facility: [facility] Address:[address] [place], [place] [address]Performed By: #### MARK ####[facility] LABCLIA [id number] [place] [address] [place] AMERICAC-REACTIVE PROTEINon 81-62-7779ORV [Mass/Vol]1.2 mg/dLHighNINF - 0.9 mg/dLKindred Hospital DaytonCARNITINE FREE AND TOTAL, PLASMAon 34-68-8579EF/FC RATIO0.2 Normal0.1-0.8[facility] HospitalComment on above:Order Comment: Specimen Type: BLOOD SPECIMENOrdering Facility: [facility] Address:[address] [place], [place] [address]Performed By: #### DAVE ####[facility] LABCLIA [id number] [place], [place] [address]HQAMHKADAGTWK (AC)6 nmol/mL Normal5-30Sf[facility]gib[facility] hospital HospitalComment on above:Order Comment: Specimen Type: BLOOD SPECIMENOrdering Facility: [facility] Address:[address] [place], [place] [address]Performed By: #### DAVE ####[facility] LABCLIA [id number] [place], [place] [address]VTOGQVSRR FREE (FC)40 nmol/fWMydvcn67-03Hwbanxlkosg HospitalComment on above:Order Comment: Specimen Type: BLOOD SPECIMENOrdering Facility: [facility] Address:[address] [place], [place] [address]Performed By: #### DAVE ####[facility] LABCLIA [id number] [place], [place] [address]TTXPDOHKV TOTAL46 nmol/wBTmrkyy62-86Ypajeroixhx HospitalComment on above:Order Comment: Specimen Type: BLOOD SPECIMENOrdering Facility: [facility] Address:[address] [place], [place] [address]Performed By: #### DAVE ####[facility] LABCLIA [id number] [place], [place] [address]JNBSVOFPWTZJLAXHD NOTENormalSfitzgibbon hospital HospitalComment on above:Order Comment: Specimen Type: BLOOD SPECIMENOrdering Facility: [facility] Address:[address] [place], [place] [address]Uzlvdt Comment: RESULT: In this sample, the carnitine profile was normal. ADDITIONAL INFORMATION This test was developed and its performance characteristics determined by [facility] in a manner consistent with CLIA requirements. This test has not been cleared or approved by the U.S. Food and Drug Administration. Test Performed by: [facility] - [address] [address] Pain Management Nurse: Damaso Osei Ph.D.; CLIA# [id number] By: #### DAVE ####[facility] LABCLIA [id number] [place] [address] CK SerPl-cCncon 15-44-8613DW [Catalytic activity/Vol]25 U/KWdp74-195AoyrqelyhycParkland Health Center on above:Order Comment: Specimen Type: BLOOD SPECIMENOrdering Facility: [facility] Address:[address] [place], [place] [address]Dydmgxxks By: #### 2157-6, 1987-06 ####[facility] LABORATORYCLIA [id number] [place] [id number] [facility] HOSPITALCNOVon 51-70-4403GSZYCspfhr Visit (PAUL) NAILA BELTRAN ([id number]) 1970 F Date Time Provider Department 08/02/23 1:00 PM MARTINE BOWLING During your visit today, we recorded the following information about you: Pulse Blood pressure Weight Height 50/minute 146/69 113.7 kg 1.702 m Celeste Vásquez LPN 08/02/2023 9:30 AM Signed What is the [...] the procedure. NAME: Naila Beltran CLINIC NO: [id number] DATE OF SERVICE: August 01, 2023 This [...] HISTORY Diagnosis Date Coronary artery disease involving [place] coronary artery of [place] heart without angina pectoris 02/06/2020 Depression DVT [...] OF vein bypass x (more content not included)...[facility] (GENSS[facility] NAILA BELTRAN ([id number]) 1970 F Date Time Provider Department 08/02/23 11:00 AM [facility] During your visit today, we recorded the following information about you: Carol Cottrell, PhD 08/02/2023 5:01 PM Signed ``Behavioral Medicine [facility] Name: Naila Beltran MR#: [id number] Date: 08/02/2023 Time: ? hour Referred by: [...] Carol Liang, Ph.D. Referring Provider: CECE HANNON [[id number]] Allergies As of Date: 08/02/2023 Noted Allergy Reaction ASPIRIN 16 - Unknown HEPARIN ANALOGUES 12/22/2011 16 - Unknown KEFLEX (CEPHALEXIN) 02/06/2010 4 - Hives PENICILLIN G 02/06/2010 4 - Hives Date Reviewed: 08/02/2023 Reviewed by: Martine Bowling MD - Fully Assessed Primary Visit Diagnosis:Gastroparesis [K31.84] Other Visit Diagnosis:Type 2 diabetes mellitus [...] Intranasal Daily June 13, 2017 7:29am 06-13-2017 [facility] ([id number]) - sitaGLIPtin-metFORMIN (JANUMET) 50-500 mg per tablet Take [...] 40 mg by mouth once daily. - Comp.Stocking,Thigh,Long,X-Lrg misc Wear stocking daily - pregabalin (LYRICA) 150 mg capsule Take 150 mg by mouth twice daily. - Multivitamins ORAL Chew None Entered Problem List As Of Date 08/02/2023 Noted Resolved Hypercoagulable state [D68.59] 01/16/2013 Vascular disease [I99.9] 11/15/2017 Anticoagulated [Z79.01] 02/06/2020 HLD (hyperlipidemia) [E78.5] 02/06/2020 Coronary artery disease of [place] artery of brit*02/06/2020 Type 2 diabetes mellitus without complication, *02/06/2020 GERD (gastroesophageal reflux disease) [K21.9] 02/06/2020 Personal history of DVT (deep vein thrombosis) *02/06/2020 Fatty liver [K76.0] 02/06/2020 Morbid obesity (HCC) [E66.01] 02/06/2020 Seiz (more content not included)...NormalUc HealthCNOVOffice Visit (GASTSP) NAILA BELTRAN ([id number]) 1970 F Date Time Provider Department 08/02/23 [...] Medications - Does the patient see a paintings restorer for chronic abdominal pain?yes for neck - [...] - Has the patient met with a insect control aide for diet recommendations with Gastroparesis? No - [...] ileum, random co (more content not included)... NormalMer[facility] HospitalOVOffy[facility] (GASTSP) NAILA BELTRAN ([id number]) 1970 F Date Time Provider Department 08/02/23 8:30 AM ELECTROGASTROGRAM [facility] During your visit today, we recorded the following information about you: Celeste Vásquez LPN 08/02/2023 4:12 PM Signed ELECTROGASTROGRAPY W/ TEST Operation / Procedure performed 500 cc water intake Referring Provider: VERONICA QUILES [[id number]] Allergies As of Date: 08/02/2023 Noted Allergy Reaction ASPIRIN 16 - Unknown HEPARIN ANALOGUES 12/22/2011 16 - Unknown KEFLEX (CEPHALEXIN) 02/06/2010 4 - Hives PENICILLIN G 02/06/2010 4 - Hives Date Reviewed: 08/02/2023 Reviewed by: Martine Bowling MD - Fully Assessed Reason for Visit: electrogastrogram [Other] Cmt: EGG-500 cc water intake Primary Visit Diagnosis:Gastroparesis [K31.84] Prescriptions as of 08/02/2023 - lubiprostone [...] Intranasal Daily June 13, 2017 7:29am 06-13-2017 [facility] ([id number]) - sitaGLIPtin-metFORMIN (JANUMET) 50-500 mg per tablet Take [...] 40 mg by mouth once daily. - Comp.Stocking,Thigh,Long,X-Lrg misc Wear stocking daily - pregabalin (LYRICA) 150 mg capsule Take 150 mg by mouth twice daily. - Multivitamins ORAL Chew None Entered Problem List As Of Date 08/02/2023 Noted Resolved Hypercoagulable state [D68.59] 01/16/2013 Vascular disease [I99.9] 11/15/2017 Anticoagulated [Z79.01] 02/06/2020 HLD (hyperlipidemia) [E78.5] 02/06/2020 Coronary artery disease of [place] artery of brit*02/06/2020 Type 2 diabetes mellitus [...] K*06/13/2023 Visit Notes: >> Celeste Vásquez LPN Wed Aug 02, 2023 4:12 PM Status: Signed ELECTROGASTROGRAPY W/ TEST Operation / Procedure performed 500 cc water intake Encounter Status:Closed by CELESTE VÁSQUEZ on 08/02/23NormalCleveland Frye [facility] Center Alexander CampusCREATINE KINASE/CKon 59-65-3988YF [Catalytic activity/Vol]25 U/LLow42 - 196 U/LCdetwiler memorial hospitaland Olivia Hospital And ClinicsCRP SerPl-mCncon 99-56-7155NOB [Mass/Vol]1.2 mg/dLHigh <0.9[facility] HospitalComment on above:Order Comment: Specimen Type: BLOOD SPECIMENOrdering Facility: [facility] Address:[address] [place], [place] [address]Performed By: #### 2157-6, 1987-06 ####[facility] LABORATORYCLIA [id number] [place] [id number] [facility] OF AMERICACYTOKINE PANEL 13, SERUMon 77-56-5020EMGTVEEPZQ GAMMA<4.2 Normal<=4.2Soutlewisgale hospital alleghany HospitalComment on above:Order Comment: Specimen Type: BLOOD SPECIMENOrdering Facility: [facility] Address:[address] [place], [place] [address]Performed By: #### CYTOKP, ESTGEN, VOLTCA ####[facility] LABOR[facility]IESCLIA [id number] [place], [place] [address]HSMHQWOIHHT 1 BETA<6.5Normal<=6.7Sokansas [facility] HospitalComment on above:Order Comment: Specimen Type: BLOOD SPECIMENOrdering Facility: [facility] Address:[address] [place], [place] [address]Performed By: #### CYTOKP, ESTGEN, VOLTCA ####[facility] LABORATORIESCLIA [id number] [place] [address] INTERLEUKIN 105.9 pg/mLHigh<=2.8Sok[facility] HospitalComment on above:Order Comment: Specimen Type: BLOOD SPECIMENOrdering Facility: [facility] Address:[address] [place], [place] [address]Performed By: #### CYTOKP, ESTGEN, VOLTCA ####[facility] LABORATORIESCLIA [id number] [place], [place] [id number] 12<1.9Normal<=1.9[facility] HospitalComment on above:Order Comment: Specimen Type: BLOOD SPECIMENOrdering Facility: [facility] Address:[address] [place], [place] [address]Performed By: #### CYTOKP, ESTGEN, VOLTCA ####[facility] LABORATORIESCLIA [id number] [place], [place] [address]OLLRIANIWOO 13<1.7Normal<=2.3[facility]pointe HospitalComment on above:Order Comment: Specimen Type: BLOOD SPECIMENOrdering Facility: [facility] Address:[address] [place], [place] [address]Performed By: #### CYTOKP, ESTGEN, VOLTCA ####[facility] LABORATORIESCLIA [id number] [place], [place] [id number] 17<1.4Normal<=1.4SSaint John's Regional Health CenterComment on above:Order Comment: Specimen Type: BLOOD SPECIMENOrdering Facility: [facility] Address:[address] [place], [place] [address]Performed By: #### CYTOKP, ESTGEN, VOLTCA ####[facility] LABORATORIESCLIA [id number] [place], [place] [id number] 2<2.1Normal<=2.1SSaint John's Regional Health CenterComment on above:Order Comment: Specimen Type: BLOOD SPECIMENOrdering Facility: [facility] Address:[address] [place], [place] [address]Performed By: #### CYTOKP, ESTGEN, VOLTCA ####[facility] LABORATORIESCLIA [id number] [place], [place] [address]EEVFBUWGEXR 4 (INT4)<2.2Normal<=2.2SSaint John's [facility] Center Comment on above:Order Comment: Specimen Type: BLOOD SPECIMENOrdering Facility: [facility] Address:[address] [place] [address] Performed By: #### CYTOKP, ESTGEN, VOLTCA ####[facility]ORATORIESCLIA [id number] [place], [place] [id number] 5<2.1Normal<=2.1 [facility] HospitalComment on above:Order Comment: Specimen Type: BLOOD SPECIMENOrdering Facility: [facility] Address:[address] [place], [place] [address]Performed By: #### CYTOKP, ESTGEN, VOLTCA ####[facility] LABORATORIESCLIA [id number] [place], [place] [id number] 6 5.7 pg/mLHigh<=2.0[facility] HospitalComment on above:Order Comment: Specimen Type: BLOOD SPECIMENOrdering Facility: [facility] Address:[address] [place], [place] [address]Performed By: #### CYTOKP, ESTGEN, VOLTCA ####[facility] LABORATORIESCLIA [id number] [place] [address] INTERLEUKIN 8<3.0Normal<=3.0B[facility] HospitalComment on above:Order Comment: Specimen Type: BLOOD SPECIMENOrdering Facility: [facility] Address:[address] [place], [place] [address]Performed By: #### CYTOKP, ESTGEN, VOLTCA ####[facility] LABORATORIESCLIA [id number] [place], [place] [address]EABEHBTNUJZ-3 ZNJSUXKZ947.8 pg/jBNbqnkz836.3-858.2SSaint [facility] Comment on above:Order Comment: Specimen Type: BLOOD SPECIMENOrdering Facility: [facility] Address:[address] [place] [address] Performed By: #### CYTOKP, ESTGEN, VOLTCA ####[facility]IESCLIA [id number] [place], [place] [address]ZJVDZ NECROSIS FACTOR - ALPHA <1.7Normal<=7.2SSaint John's Regional Health CenterComment on above:Order Comment: Specimen Type: BLOOD SPECIMENOrdering Facility: [facility] Address:[address] [place], [place] [address]Result Comment: INTERPRETIVE INFORMATION: Cytokines Results are used to understand the pathophysiology of immune, infectious, or inflammatory disorders, or may be used for research purposes. This test was developed and its performance characteristics determined by [facility]. It has not been cleared or approved by the [place] Food and Drug Administration. This test was performed in a CLIA certified laboratory and is intended for clinical purposes. Performed By: [facility] [address] [place] [address] Leather Dresser: Molina Ureña MD, PhD CLIA Number: [id number] By: #### CYTOKP, ESTGEN, VOLTCA ####[facility]IESCLIA [id number] [place], [place] [address]ERO Ananthergren method (Bld) [Velocity]on 30-14-8035TLG (Bld) [Velocity]38 mm/[facility] - TrumbullInterpretation and review of laboratory resultsAbnoalCMemorial Health SystemESR (Bld) [Velocity]38 mm/hHigh0-20SSaint John's Regional Health CenterComment on above:Order Comment: Specimen Type: BLOOD SPECIMENOrdering Facility: [facility] Address:[address] [place] [address] Performed By: #### 4537-7 ####[facility] LABCLIA [id number] [address] OF [place] ESTROGEN FRACTION BLon 34-77-4618VNWEXOHOD3.6 pg/[facility] Comment on above:Order Comment: Specimen Type: BLOOD SPECIMENOrdering Facility: [facility] Address:[address] [place], [place] [address]Result Comment: REFERENCE INTERVAL: Estradiol by Statistical Machine Mechanic For a complete set of all established reference intervals, refer to [employer]/Tests/Pub/[id number]. This test was developed and its performance characteristics determined by [facility]. It has not been cleared or approved by the [place] Food and Drug Administration. This test was performed in a CLIA certified laboratory and is intended for clinical purposes.Performed By: #### PATRICK RAVI VOLTCA ####[facility]IESCLIA [id number] [place], [place] [address]JSOTWXLFB TOTAL29.8 pg/mLNCass Medical CenterComment on above:Order Comment: Specimen Type: BLOOD SPECIMENOrdering Facility: [facility] Address:[address] [place], [place] [address]Gecnop Comment: Reference interval of estrogens (pg/mL) Estrone Estradiol Total Estrogens Early follicular <150.0 30.0-100.0 30.0-250.0 Late follicular 100.0-250.0 100.0-400.0 200.0-650.0 Luteal <200.0 50.0-150.0 50.0-350.0 Post-menopausal 3.0-32.0 2.0-21.0 5.0-52.0 REFERENCE INTERVAL: Estrogens Total Calculation For a complete set of all established reference intervals, refer to [employer]/Tests/Pub/[id number]. Performed By: [facility] [address] [place] [address] Leather Dresser: Molina Ureña MD, PhD [facility] Number: [id number] By: #### CYTOKP, EST, VOLTCA ####[facility] LABORATORIESCLIA [id number] [place], [place] [address]GRPPBXQ64.2 pg/mLNormalParkland Health Center on above:Order Comment: Specimen Type: BLOOD SPECIMENOrdering Facility: [facility] Address:[address] [place], [place] [address]Result Comment: INTERPRETIVE INFORMATION: Estrone by Statistical Machine Mechanic For a complete set of all established reference intervals, refer to [employer]/Tests/Pub/[id number]. This test was developed and its performance characteristics determined by [facility]. It has not been cleared or approved by the US Food and Drug Administration. This test was performed in a CLIA certified laboratory and is intended for clinical purposes.Performed By: #### CYTOKP, EST, VOLTCA ####[facility] LABORATORIESCLIA [id number] [place], [place] [address]FAX63 Ab Ser-aCncon 95-84-4600Bfzmshigz decarboxylase 65 Ab Qn (S)<5.0Normal<=5.0 [facility] on above:Order Comment: Specimen Type: BLOOD SPECIMENOrdering Facility: [facility] Address:[address] [place], [place] [address]Result Comment: Anti-glutamic acid decarboxylase antibody (GAD65) test usually in conjunction with another test such as IA-2 antibody is used as an aid in establishing the autoimmune nature of previously-diagnosed type I diabetes mellitus or in predicting of progression to type I diabetes mellitus in patients with certain autoimmune diseases including autoimmune gastritis among others. It is alsoused as an aid in diagnosis of stiff person syndrome and certain autoimmune nervous system diseases. Clinical correlation is required.Performed By: #### ACHRAB, 56025-4 ####[facility] LABCLIA [id number] [place] [address] [place] AMERICAGlutamate decarboxylase 65 Ab Qn (S)on 70-60-8041XCOZPDJN ACID DECARBOXYLAS AB QUALITATIVENegativeNormalNegativeSSaint John's Regional Health CenterComment on above:Order Comment: Specimen Type: BLOOD SPECIMENOrdering Facility: [facility] Address:[address] [place], [place] [address]Performed By: #### ACHRAB, 84391-6 ####[facility] LABCLIA [id number] [place] [address] [place] AMERICAIMMUNOGLOBULIN Aon 79-93-7533SoE [Mass/Vol]271 mg/dL70 - 400 mg/dLKindred Hospital DaytonIMMUNOGLOBULIN G on 20-67-3741YdV [Mass/Vol]1849 mg/cOXjxu754 - 1600 mg/dLKindred Hospital Dayton IMMUNOGLOBULIN Mon 93-83-0634GrQ [Mass/Vol]48 mg/dL40 - 230 mg/dLKindred Hospital DaytonIgA SerPl-mCncon 44-61-6132CzP [Mass/Vol]271 mg/yYWaumzx69-908Gtxhbnkpfae HospitalComment on above:Order Comment: Specimen Type: BLOOD SPECIMEN [facility] Address: [address] [place], [place] [address]Performed By: #### 2472-9, 2465-3, 0578-8 #### [facility] LAB CLIA [id number] [address] [place] [address] [place] AMERICAIgG SerPl-mCncon 08-02-2023 IgG [Mass/Vol]1849 mg/kZVwzb405-1304Uprvkyesmsr HospitalComment on above:Order Comment: Specimen Type: BLOOD SPECIMENOrdering Facility: [facility] Address:[address] [place], [place] [address]Performed By: #### 2472- 9, 2465-3, 2458-8 ####[facility] LABCLIA [id number] [place] [address] [place] AMERICAIgG [Mass/Vol]on 98-26-0347Xfxuuymzwzjxvw and review of laboratory resultsAbnormalCleveland ClinicIgM SerPl-mCncon 38-70-6919JaS [Mass/Vol]48 mg/jIAtmcfg02-607Dsirgbgxtaz HospitalComment on above:Order Comment: Specimen Type: BLOOD SPECIMENOrdering Facility: [facility] Address:[address] [place], [place] [address]Performed By: #### 2472-9, 2465-3, 2458-8 ####[facility] LABCLIA [id number] [place] [address] [place] AMERICALACTATE DEHYDROGENASEon 77-58-9501CHB [Catalytic activity/Vol]184 U/L135 - 214 U/LCleveland ClinicLDH SerPl-cCncon 91-98-1310GVK [Catalytic activity/Vol] 184 U/HCknwqa920-035Jqeirdjsbey HospitalComment on above:Order Comment: Specimen Type: BLOOD SPECIMEN [facility] Address: [address] [place], [place] [address]Performed By: #### 2532-0 #### [facility] CLIA [id number] [address] [place] [address] [place] AMERICALDH [Catalytic activity/Vol] on 83-46-2221Uontaobegtarwj and review of laboratory resultsNormalCleveland Parkview HealthNo Panel Informationon 09-30-1342Nydehqqghsspwp and review of laboratory resultsNormalCleveland Parkview HealthInterpretation and review of laboratory resultsAbnormalCdetwiler memorial hospitaland Parkview HealthORGANIC ACIDS UR, QUANT W/CONSULTon 43528-Hhudcggvtmtexjaa/Creatinine (U) [Molar ratio]2.2 umol/mmolCrNormal0.6-17.7SoSaint Louis University Health Science CenterCommymichigan medical center on above:Order Comment: Specimen Type: URINE SPECIMENOrdering Facility: [facility] Address:[address] [place], [place] [address]Performed By: #### [id number] ####[facility] LABCLIA [id number] [place] [address] [place]2- Hydroxyisovalerate/Creatinine (U) [Molar ratio]<0.4Ntefqz4.0-0.1SSaint John's Regional Health CenterComment on above:Order Comment: Specimen Type: URINE SPECIMENOrdering Facility: [facility] Address:[address] [place], [place] [address]Performed By: #### [id number] ####[facility] LABCLIA [id number] [place] [address] [place] 0-Hptimc-2-hydroxybutyrate (C5-OH)/Creatinine (U) [Molar ratio]<0.0Xwzyer7.0-1.3 [facility] HospitalComment on above:Order Comment: Specimen Type: URINE SPECIMENOrdering Facility: [facility] Address:[address] [place], [place] [address]Performed By: #### [id number] ####[facility] LABCLIA [id number] [place] [address] [place]2-Methylbutyrylglycine/Creatinine (U) [Molar ratio]<0.4Jvpkyj4.0-0.4 [facility] HospitalComment on above:Order Comment: Specimen Type: URINE SPECIMENOrdering Facility: [facility] Address:[address] [place], [place] [address]Performed By: #### [id number] ####[facility] LABCLIA [id number] [place] [address] [place]2-Methylcitrate/Creatinine (U) [Molar ratio]1.5 umol/mmolCrNormal1.0-13.9 [facility] HospitalComment on above:Order Comment: Specimen Type: URINE SPECIMENOrdering Facility: [facility] Address:[address] [place], [place] [address]Performed By: #### [id number] ####[facility] LABCLIA [id number] [place] [address] [place]2-Oxoadipate/Creatinine (U) [Molar ratio]1.8 umol/mmolCrNormal0.0-3.3 [facility] HospitalComment on above:Order Comment: Specimen Type: URINE SPECIMENOrdering Facility: [facility] Address:[address] [place], [place] [address]Performed By: #### [id number] ####[facility] LABCLIA [id number] [place] [address] [place]3-Hydroxyglutarate/Creatinine (U) [Molar ratio]0.3 umol/mmolCrNormal 0.0-0.7B[facility] Memorial HospitalComment on above:Order Comment: Specimen Type: URINE SPECIMENOrdering Facility: [facility] Address:[address] [place], [place] [address]Performed By: #### [id number] ####[facility] LABCLIA [id number] [place] [address] [place]3-Hydroxyisovalerate/Creatinine (U) [Molar ratio]1.6 umol/mmolCrLow 2.1-27.3SSaint John's Regional Health CenterComment on above:Order Comment: Specimen Type: URINE SPECIMENOrdering Facility: [facility] Address:[address] [place], [place] [address]Performed By: #### [id number] ####[facility] LABCLIA [id number] [place] [address] [place]3-Methylcrotonylglycine/Creatinine (U) [Molar ratio]<0.3Normal<0.3 [facility] HospitalCommymichigan medical center on above:Order Comment: Specimen Type: URINE SPECIMENOrdering Facility: [facility] Address:[address] [place], [place] [address]Performed By: #### [id number] ####[facility] LABCLIA [id number] [place] [address] [place]3-Methylglutaconate/Creatinine (U) [Molar ratio]0.4 umol/mmolCrNormal 0.0-2.0B[facility] HospitalComment on above:Order Comment: Specimen Type: URINE SPECIMENOrdering Facility: [facility] Address:[address] [place], [place] [address]Performed By: #### [id number] ####[facility] LABCLIA [id number] [place] [address] [place]3-Methylglutarate/Creatinine (U) [Molar ratio]0.2 umol/mmolCrNormal 0.0-0.6SoSaint Louis University Health Science CenterComment on above:Order Comment: Specimen Type: URINE SPECIMENOrdering Facility: [facility] Address:[address] [place], [place] [address]Performed By: #### [id number] ####[facility] LABIA [id number] [place] [address] [place]4-Hydroxyphenylacetate/Creatinine (U) [Molar ratio]14.3 umol/mmolCrNormal 5.7-147.5SSaint John's Regional Health CenterComment on above:Order Comment: Specimen Type: URINE SPECIMENOrdering Facility: [facility] Address:[address] [place], [place] [address]Performed By: #### [id number] ####[facility] LABIA [id number] [place] [address] [place]4-Hydroxyphenyllactate/Creatinine (U) [Molar ratio]5.3 umol/mmolCrNormal1.3-23.0B[facility] HospitalComment on above:Order Comment: Specimen Type: URINE SPECIMENOrdering Facility: [facility] Address:[address] [place], [place] [address]Performed By: #### [id number] ####[facility] LABCLIA [id number] [place] [address] [place]4- Hydroxyphenylpyruvate/Creatinine (U) [Molar ratio]0.0 umol/mmolCrNormal<=0.0 [facility] HospitalComment on above:Order Comment: Specimen Type: URINE SPECIMENOrdering Facility: [facility] Address:[address] [place], [place] [address]Performed By: #### [id number] ####[facility] LABCLIA [id number] [place] [address] [place]5-Oxoproline/Creatinine (U) [Molar ratio]1.6 umol/mmolCrNormal0.4-3.1 [facility] HospitalComment on above:Order Comment: Specimen Type: URINE SPECIMENOrdering Facility: [facility] Address:[address] [place], [place] [address]Performed By: #### [id number] ####[facility] LABCLIA [id number] [place] [address] [place] AMERICAAcetoacetate/Creatinine (U) [Molar ratio]<0.9High0.0-0.5Sf[facility]gib[facility] hospital HospitalComment on above:Order Comment: Specimen Type: URINE SPECIMENOrdering Facility: [facility] Address:[address] [place], [place] [address]Performed By: #### [id number] ####[facility] LABIA [id number] [place] [address] [place] Aconitate/Creatinine (U) [Molar ratio]17.5 umol/mmolCrNormal8.5-109.6B[facility] HospitalComment on above:Order Comment: Specimen Type: URINE SPECIMENOrdering Facility: [facility] Address:[address] [place], [place] [address]Performed By: #### [id number] ####[facility] LABIA [id number] [place] [address] [place] Adipate/Creatinine (U) [Molar ratio]1.0 umol/mmolCrNormal0.3-9.2S[facility] hospital HospitalComment on above:Order Comment: Specimen Type: URINE SPECIMENOrdering Facility: [facility] Address:[address] [place], [place] [address]Performed By: #### [id number] ####[facility] LABCLIA [id number] [place] [address] [place] Alpha hydroxybutyrate/Creatinine (U) [Molar ratio]<1.9Upijsk5.0-2.7Sok[facility] HospitalComment on above:Order Comment: Specimen Type: URINE SPECIMENOrdering Facility: [facility] Address:[address] [place], [place] [address]Performed By: #### [id number] ####[facility] LABCLIA [id number] [place] [address] [place] Alpha ketoglutarate/Creatinine (U) [Molar ratio]2.4 umol/mmolCrNormal0.2-42.7 [facility] HospitalComment on above:Order Comment: Specimen Type: URINE SPECIMENOrdering Facility: [facility] Address:[address] [place], [place] [address]Performed By: #### [id number] ####[facility] LABCLIA [id number] [place] [address] [place] AMERICABenzoate/Creatinine (U) [Molar ratio]<12.5Uzurmv5.0-14.6S[facility] HospitalComment on above:Order Comment: Specimen Type: URINE SPECIMENOrdering Facility: [facility] Address:[address] [place], [place] [address]Performed By: #### [id number] ####[facility] LABCLIA [id number] [place] [address] [place] Beta hydroxybutyrate/Creatinine (U) [Molar ratio]<1.1Dderbt3.1-2.6Sok[facility] HospitalComment on above:Order Comment: Specimen Type: URINE SPECIMENOrdering Facility: [facility] Address:[address] [place], [place] [address]Performed By: #### [id number] ####[facility] LABCLIA [id number] [place] [address] [place] Butyrylglycine/Creatinine (U) [Molar ratio]0.0 umol/mmolCrNormal0.0-0.7 [facility] HospitalComment on above:Order Comment: Specimen Type: URINE SPECIMENOrdering Facility: [facility] Address:[address] [place], [place] [address]Performed By: #### [id number] ####[facility] LABIA [id number] [place] [address] [place] AMERICACreatinine (U) [Mass/Vol]219.5 mg/bLFsgwaq50.2-237.9SoSaint [facility] University [facility] Science Center Comment on above:Order Comment: Specimen Type: URINE SPECIMENOrdering Facility: [facility] Address:[address] [place] [address] Performed By: #### [id number] ####[facility] LABIA [id number] [place] [address] [place] Ethylmalonate/Creatinine (U) [Molar ratio]0.3 umol/mmolCrLow0.5-6.2S[facility] HospitalComment on above:Order Comment: Specimen Type: URINE SPECIMENOrdering Facility: [facility] Address:[address] [place], [place] [address]Performed By: #### [id number] ####[facility] LABIA [id number] [place] [address] [place] Fumarate/Creatinine (U) [Molar ratio]1.7 umol/mmolCrNormal0.3-2.6Sok[facility] HospitalComment on above:Order Comment: Specimen Type: URINE SPECIMENOrdering Facility: [facility] Address:[address] [place], [place] [address]Performed By: #### [id number] ####[facility] LABIA [id number] [place] [address] [place] Glutarate/Creatinine (U) [Molar ratio]0.2 umol/mmolCrNormal0.0-1.4SSaint John's Regional Health CenterComment on above:Order Comment: Specimen Type: URINE SPECIMENOrdering Facility: [facility] Address:[address] [place], [place] [address]Performed By: #### [id number] ####[facility] LABCLIA [id number] [place] [address] [place] Hexanoylglycine/Creatinine (U) [Molar ratio]<0.3Rebihc7.0-0.1SSaint John's Regional Health CenterComment on above:Order Comment: Specimen Type: URINE SPECIMENOrdering Facility: [facility] Address:[address] [place], [place] [address]Performed By: #### [id number] ####[facility] LABCLIA [id number] [place] [address] [place] Isobutyrylglycine/Creatinine (U) [Molar ratio]0.1 umol/mmolCrNormal0.0-1.2 [facility] HospitalComment on above:Order Comment: Specimen Type: URINE SPECIMENOrdering Facility: [facility] Address:[address] [place], [place] [address]Performed By: #### [id number] ####[facility] LABCLIA [id number] [place] [address] [place] AMERICAIsocitrate/Creatinine (U) [Molar ratio]44.8 umol/mmolCrNormal9.1-271.9 [facility] HospitalComment on above:Order Comment: Specimen Type: URINE SPECIMENOrdering Facility: [facility] Address:[address] [place], [place] [address]Performed By: #### [id number] ####[facility] LABCLIA [id number] [place] [address] [place] AMERICALactate/Creatinine (U) [Molar ratio]20.8 umol/mmolCrNormal2.9-47.2 [facility] HospitalComment on above:Order Comment: Specimen Type: URINE SPECIMENOrdering Facility: [facility] Address:[address] [place], [place] [address]Performed By: #### [id number] ####[facility] LABCLIA [id number] [place] [address] [place] AMERICAMalate/Creatinine (U) [Molar ratio]<0.7Hvooul2.0-1.1SSaint [facility] Comment on above:Order Comment: Specimen Type: URINE SPECIMENOrdering Facility: [facility] Address:[address] [place] [address] Performed By: #### [id number] ####[facility] LABCLIA [id number] [place] [address] [place] Malonate/Creatinine (U) [Molar ratio]0.0 umol/mmolCrNormal0.0-0.1SSaint John's Regional Health CenterComment on above:Order Comment: Specimen Type: URINE SPECIMENOrdering Facility: [facility] Address:[address] [place], [place] [address]Performed By: #### [id number] ####[facility] LABCLIA [id number] [place] [address] [place] Methylmalonate/Creatinine (U) [Molar ratio]<0.8Cwecbv1.0-0.6[facility] Comment on above:Order Comment: Specimen Type: URINE SPECIMENOrdering Facility: [facility] Address:[address] [place] [address] Performed By: #### [id number] ####[facility] LABCLIA [id number] [place] [address] [place] Methylsuccinate/Creatinine (U) [Molar ratio]0.3 umol/mmolCrNormal0.0-1.4 [facility] HospitalComment on above:Order Comment: Specimen Type: URINE SPECIMENOrdering Facility: [facility] Address:[address] [place], [place] [address]Performed By: #### [id number] ####[facility] LABCLIA [id number] [address]-acetylaspartate/Creatinine (U) [Molar ratio]2.0 umol/mmolCrNormal 0.1-8.9S[facility] HospitalComment on above:Order Comment: Specimen Type: URINE SPECIMENOrdering Facility: [facility] Address:[address] [place], [place] [address]Performed By: #### [id number] ####[facility] LABCLIA [id number] [address]-acetyltyrosine/Creatinine (U) [Molar ratio]<0.3Fwwmvo0.0-1.2Soutlewisgale hospital alleghany HospitalComment on above:Order Comment: Specimen Type: URINE SPECIMENOrdering Facility: [facility] Address:[address] [place], [place] [address]Performed By: #### [id number] ####[facility] LABCLIA [id number] [address] [place] Oxalate/Creatinine (U) [Molar ratio]1.0 umol/mmolCrNormal0.7-12.4Soutlewisgale hospital alleghany HospitalComment on above:Order Comment: Specimen Type: URINE SPECIMENOrdering Facility: [facility] Address:[address] [place], [place] [address]Performed By: #### [id number] ####[facility] LABCLIA [id number] [place] [address] [place] Pyruvate/Creatinine (U) [Molar ratio]0.5 umol/mmolCrNormal0.1-2.6Sok[facility] HospitalComment on above:Order Comment: Specimen Type: URINE SPECIMENOrdering Facility: [facility] Address:[address] [place], [place] [address]Performed By: #### [id number] ####[facility] LABCLIA [id number] [place] [address] [place] Sebacate (C8)/Creatinine (U) [Molar ratio]<3.4High0.0-0.3[facility] Hospital Comment on above:Order Comment: Specimen Type: URINE SPECIMENOrdering Facility: [facility] Address:[address] [place] [address] Performed By: #### [id number] ####[facility] LABCLIA [id number] [place] [address] [place] Suberate/Creatinine (U) [Molar ratio]1.1 umol/mmolCrNormal0.0-7.4SSaint John's Regional Health CenterComment on above:Order Comment: Specimen Type: URINE SPECIMENOrdering Facility: [facility] Address:[address] [place], [place] [address]Performed By: #### [id number] ####[facility] LABIA [id number] [place] [address] [place] Suberylglycine/Creatinine (U) [Molar ratio]0.0 umol/mmolCrNormal<=0.0SoSaint Louis University Health Science CenterComment on above:Order Comment: Specimen Type: URINE SPECIMENOrdering Facility: [facility] Address:[address] [place], [place] [address]Performed By: #### [id number] ####[facility] LABIA [id number] [place] [address] [place] Succinate/Creatinine (U) [Molar ratio]1.0 umol/mmolCrNormal0.3-27.4SSaint John's Regional Health CenterComment on above:Order Comment: Specimen Type: URINE SPECIMENOrdering Facility: [facility] Address:[address] [place], [place] [address]Performed By: #### [id number] ####[facility] LABIA [id number] [address] AVENUEDESK [id number] Succinylacetone/Creatinine (U) [Molar ratio]<0.4Normal<0.4SSaint John[facility] Comment on above:Order Comment: Specimen Type: URINE SPECIMENOrdering Facility: [facility] Address:[address] [place] [address] Performed By: #### [id number] ####[facility] LABCLIA [id number] [address] UOA CONSULTATIONNormalSSaint John's Regional Health CenterComment on above:Order Comment: Specimen Type: URINE SPECIMENOrdering Facility: [facility] Address:[address] [place], [place] [address]Result Comment: This urine organic acid analysis shows [...] and its performance characteristics determined by the [facility]etabolism [facility]. It has not been cleared or approved by the US Food and Drug Administration. The FDA had determined that such clearance or approval is not necessary.Performed By: #### [id number] ####[facility] LABCLIA [id number] [address] STATES MA[facility]ONID[facility] COMMUN[facility] HOSPITALUOA REVIEWReviewed by Kevin Hardin MD, Ph.D ([id number])The Rehabilitation InstituteCommymichigan medical center on above:Order Comment: Specimen Type: URINE SPECIMENOrdering Facility: [facility] Address:[address] [place], [place] [address]Performed By: #### [id number] ####[facility] LABCLIA [id number] [address] OF AMERICAUracil/Creatinine (U) [Molar ratio]0.9 umol/mmolCrNormal0.0-5.1SSaint John's Regional Health CenterComment on above: Order Comment: Specimen Type: URINE SPECIMENOrdering Facility: [facility] Address:[address] [place], [place] [address]Performed By: #### [id number] ####[facility] LABIA [id number] [address] OF B[facility]ESDA NORTH HOSPITALPYRUVATE+LACTATE BLon 99-49-6053Tgjvnmx [Moles/Vol]0.9 mmol/LNormal0.5-2.2SSaint John's Regional Health CenterComment on above:Order Comment: Specimen Type: BLOOD SPECIMENOrdering Facility: [facility] Address:[address] [place], [place] [address]Result Comment: This test was developed and its performance characteristics determined by [facility] Pathology [facility] Laboratory Medicine Calvin ([facility]). It has not been cleared or approved by the FDA. RT-PLMI is regulated under CLIA as qualified to perform high-complexity testing. This test is used for clinical purposes. It should not be regarded as investigational or for research.Performed By: #### LACPYR ####[facility] LABIA [id number] [address] STATES OF [place] Pyruvate (Bld) [Moles/Vol]0.02 mmol/LLow0.03-0.10B[facility] County Memorial HospitalCommymichigan medical center on above:Order Comment: Specimen Type: BLOOD SPECIMENOrdering Facility: [facility] Address:[address] [place], [place] [address]Result Comment: Specimen was not treated within the desired 30 minute time. Pyruvate results may befalsely decreased and lactate result may be falsely elevated. This test was developed and its performance characteristics determined by [facility] Pathology and Laboratory Medicine [place] ([facility]ENTERPLMI). It has not been cleared or approved by the FDA. RT-PLMI is regulated under CLIA as qualified to perform high-complexity testing. Thistest is used for clinical purposes. It should not be regarded as investigational or for research.Performed By: #### LACPYR ####[facility] LABCLIA [id number] [place] [address] [place] [facility] VOLTAGE GATED CA IGGon 4P/Q-TYPE CALCIUM CHANNEL ANTIBODY0.0 pmol/L Normal0.0-24.5SSaint John's Regional Health CenterComment on above:Order Comment: Specimen Type: BLOOD SPECIMENOrdering Facility: [facility] Address:[address] [place], [place] [address]Result Comment: INTERPRETIVE INFORMATION: P/Q- Type Calcium Channel Antibody 0.0 to 24.5 pmol/L ............. Negative 24.6 to 45.6 pmol/L ............ Indeterminate 45.7 pmol/L or greater.......... Positive This test was developed and its performance characteristics determined by [facility]. It has not been cleared or approved by the US Food and Drug Administration. This test was performed in a CLIA certified laboratory and is intended for clinical purposes. Performed By: [employer] [address] [place] [address] Leather Dresser: Molina Ureña MD, PhD [facility] Number: [id number] By: #### CYTOKPATRICK Garcia VOLTCA ####[facility] LABORATORIESIA [id number] [place], [place] [address]BGHBVBL-FMKHD POTASSIUM MOYER ABon 25-71-0248OBHPBNR-GATED POTASSIUM CHANNEL AB, SER12 pmol/L Normal0-31B[facility] County Memorial HospitalComment on above:Order Comment: Specimen Type: BLOOD SPECIMENOrdering Facility: [facility] Address:[address] [place], [place] [address]Result Comment: INTERPRETIVE INFORMATION: Voltage-Gated Potassium Channel (VGKC) Antibody, Serum [...] developed and its performance characteristics determined by [facility]. It has not been cleared or approved by the US Food and Drug Administration. This test was performed in a CLIA certified laboratory and is intended for clinical purposes. Performed By: [facility] [address] [place] [address] Leather Dresser: Molina Ureña MD, PhD CLIA Number: [id number] By: #### VGKCAB ####[facility] CENTERIA [id number] [place], [place] [address]ZZSObu [id number] (GASTSP) NAILA BELTRAN ([id number]) 1970 F Date Time Provider Department 07/25/23 VERONICA QUILES GAST During your visit today, we recorded the following information about you: Vu Ventura, LITO 07/25/2023 4:18 PM Signed SPECIALTY CARE COORDINATION [...] Message and call back number provided. Vu Ventura RN July 25, 2023 Allergies As of [...] Intranasal Daily June 13, 2017 7:29am 06-13-2017 [facility] ([id number]) - sitaGLIPtin-metFORMIN (JANUMET) 50-500 mg per tablet Take [...] 40 mg by mouth once daily. - Comp.Stocking,Thigh,Long,X-Lrg misc Wear stocking daily - pregabalin (LYRICA) 150 mg capsule Take 150 mg by mouth twice daily. - Multivitamins ORAL Chew None Entered Problem List As Of Date 07/25/2023 Noted Resolved Hypercoagulable state [D68.59] 01/16/2013 Vascular disease [I99.9] 11/15/2017 Anticoagulated [Z79.01] 02/06/2020 HLD (hyperlipidemia) [E78.5] 02/06/2020 Coronary artery disease of [place] artery of brit*02/06/2020 Type 2 diabetes mellitus [...] (HCC) (HCC) [E11.43, K*06/13/2023 Encounter Status:Closed by BARBRA VU on 07/25/23NormalCPremier Health [facility] W Auto Differential panel (Bld)on 08-73-9833Kkemrrdfm (Bld) [#/Vol] 0.05 10*3/uLNormal<0.11CThe [facility] on above:Order Comment: Specimen Type: BLOOD SPECIMENOrdering Facility: [facility] Address:[address] [place], [place] [address]Performed By: #### 97599-7 ####[facility] LABCLIA [id number] [place], [place] [address]Ywzwxhypp/100 WBC (Bld)0.5 %NormalMercy Health St. [facility] on above:Order Comment: Specimen Type: BLOOD SPECIMENOrdering Facility: [facility] Address:[address] [place], [place] [address]Performed By: #### 24396-8 ####[facility] LABCLIA [id number] [place], [place] [address]Lrwupulpkioh cell count method Nom (Bld)AutoNormalCThe Surgical Hospital [facility] South[facility] on above:Order Comment: Specimen Type: BLOOD SPECIMENOrdering Facility: [facility] Address:[address] [place], [place] [address]Performed By: #### 76667-1 ####[facility] LABCLIA [id number] [place], [place] [address]Fzykjegdsmp (Bld) [#/Vol]0.28 10*3/uLNormal<0.46[facility] on above:Order Comment: Specimen Type: BLOOD SPECIMENOrdering Facility: [facility] Address:[address] [place], [place] [address]Performed By: #### 07976-6 ####[facility] LABCLIA [id number] [place], [place] [address]Rhyzztgvcgw/100 WBC (Bld)2.6 %NormalMercy Health St. Anne Hospital on above:Order Comment: Specimen Type: BLOOD SPECIMENOrdering Facility: [facility] Address:[address] [place], [place] [address]Performed By: #### 33408-9 ####[facility] LABIA [id number] [place], [place] [address]Otythxmajik distribution width (RBC) [Ratio]14.5 %Normal 11.5-15.0[facility] on above:Order Comment: Specimen Type: BLOOD SPECIMENOrdering Facility: [facility] Address:[address] [place], [place] [address]Performed By: #### 87055-9 ####[facility] LABIA [id number] [place] [address] Hematocrit (Bld) [Volume fraction]36.7 %Qqmlvd58.0-46.0[facility] on above:Order Comment: Specimen Type: BLOOD SPECIMENOrdering Facility: [facility] Address:[address] [place], [place] [address]Performed By: #### 58182-6 ####[facility] LABIA [id number] [place], [place] [address]Bhuxjyhqrk (Bld) [Mass/Vol]11.7 g/oAVfuifu29.5-15.5CThe [facility] on above:Order Comment: Specimen Type: BLOOD SPECIMENOrdering Facility: [facility] Address:[address] [place], [place] [address]Performed By: #### 42897-1 ####[facility] LABIA [id number] [place], [place] [address]Otixeuvd granulocytes (Bld) [#/Vol]0.04 10*3/uLNormal <0.10[facility] on above:Order Comment: Specimen Type: BLOOD SPECIMENOrdering Facility: [facility] Address:[address] [place], [place] [address]Performed By: #### 55613-5 ####[facility] LABCLIA [id number] [place], [place] [address]Tlcimgdu granulocytes/100 WBC (Bld)0.4 %NormalMercy Health St. [facility] Hospital on above: Order Comment: Specimen Type: BLOOD SPECIMENOrdering Facility: [facility] Address:[address] [place], [place] [address]Performed By: #### 34071- 8 ####[facility] LABCLIA [id number] [place], [place] [address]Voqqwpzzaoh (Bld) [#/Vol]3.20 10*3/uLNormal1.00-4.[address] [facility] on above:Order Comment: Specimen Type: BLOOD SPECIMENOrdering Facility: [facility] Address:[address] [place], [place] [address]Performed By: #### 34151-9 ####[facility] LABIA [id number] [place], [place] [address]Ezqywttzwoe/100 WBC (Bld)29.1 %NormalMercy Health St. [facility] Hospital on above:Order Comment: Specimen Type: BLOOD SPECIMENOrdering Facility: [facility] Address:[address] [place], [place] [address]Performed By: #### 98922-7 ####[facility] LABCLIA [id number] [place], [place] [address]HID (RBC) [Entitic mass]28.2 msPghgvi73.0-34.0[facility] on above:Order Comment: Specimen Type: BLOOD SPECIMENOrdering Facility: [facility] Address:[address] [place], [place] [address]Performed By: #### 17372-0 ####[facility] LABCLIA [id number] [place], [place] [address]PEBN (RBC) [Mass/Vol]31.9 g/tVJmhdjm69.5-36.0[facility] on above: Order Comment: Specimen Type: BLOOD SPECIMENOrdering Facility: [facility] Address:[address] [place], [place] [address]Performed By: #### 86921- 8 ####[facility] LABCLIA [id number] [place], [place] [address]RQR (RBC) [Entitic vol]88.4 sWQjgxcr99.0-100.0[facility] on above:Order Comment: Specimen Type: BLOOD SPECIMENOrdering Facility: [facility] Address:[address] [place], [place] [address]Performed By: #### 24167-7 ####[facility] LABIA [id number] [place], [place] [address]Rspzwlocq (Bld) [#/Vol]0.55 10*3/uLNormal<0.87[facility] on above:Order Comment: Specimen Type: BLOOD SPECIMENOrdering Facility: [facility] Address:[address] [place], [place] [address]Performed By: #### 23105- 8 ####[facility] LABCLIA [id number] [place], [place] [address]Brbrfuieo/100 WBC (Bld)5.0 %NormalMercy Health St. [facility] on above:Order Comment: Specimen Type: BLOOD SPECIMENOrdering Facility: [facility] Address:[address] [place], [place] [address]Performed By: #### 94247-2 ####[facility] LABIA [id number] [place], [place] [address]Nnmbymcwqjq (Bld) [#/Vol]6.86 10*3/uLNormal1.45-7.50[facility] on above:Order Comment: Specimen Type: BLOOD SPECIMENOrdering Facility: [facility] Address:[address] [place], [place] [address]Performed By: #### 77929-4 ####[facility] LABCLIA [id number] [place], [place] [address]Oafpkuiivqp/100 WBC (Bld)62.4 %NormalMercy Health St. [facility] on above:Order Comment: Specimen Type: BLOOD SPECIMENOrdering Facility: [facility] Address:[address] [place], [place] [address]Performed By: #### 50668-5 ####[facility] LABCLIA [id number] [place], [place] [address]Ocqowxkrh RBC (Bld) [#/Vol] 10*3/uLNormal<0.01[facility] on above:Order Comment: Specimen Type: BLOOD SPECIMENOrdering Facility: [facility] Address:[address] [place], [place] [address]Performed By: #### 97539-7 ####[facility] LABCLIA [id number] [place], [place] [address]Rhqxaeltf RBC/100 WBC (Bld) [Ratio]0.0 /[address] [facility] on above:Order Comment: Specimen Type: BLOOD SPECIMENOrdering Facility: [facility] Address:[address] [place], [place] [address]Performed By: #### 17294-1 ####[facility] LABIA [id number] [place], [place] [address]Ycfobzwb mean volume (Bld) [Entitic vol]8.9 fLLow9.0-12.7CThe [facility] on above:Order Comment: Specimen Type: BLOOD SPECIMENOrdering Facility: [facility] Address:[address] [place], [place] [address]Performed By: #### 47025-9 ####[facility] LABIA [id number] [place], [place] [address]Sgbkobypx (Bld) [#/Vol]236 10*3/hRZudrlc588-393Rfeqtonyr Clinic ClevelandComment on above:Order Comment: Specimen Type: BLOOD SPECIMENOrdering Facility: [facility] Address:[address] [place] [address]Ijitotvtd By: #### 44264-5 ####[facility] LABIA [id number] [place], [place] [address]XJJ (Bld) [#/Vol]4.15 10*6/uLNormal3.90-5.20[facility] on above: Order Comment: Specimen Type: BLOOD SPECIMENOrdering Facility: [facility] Address:[address] [place] [address]Zwcmbjbvw By: #### 00441- 8 ####[facility] LABIA [id number] [place], [place] [address]EWF (Bld) [#/Vol]10.98 10*3/uLNormal3.70-11.00[facility] on above:Order Comment: Specimen Type: BLOOD SPECIMENOrdering Facility: [facility] Address:[address] [place] [address]Xvwviqlqb By: #### 79803-6 ####[facility] LABIA [id number] [place], [place] [address]KKPEZJxa 28-45-4024AAVHDVVixsx (SP) Office ([place]) NAILA BELTRAN ([id number]) 1970 F Date Time Provider Department 06/13/23 [...] bed and had warm swollen left leg. [facility] diagnosed with DVT. She was negative for [...] 6 months - 2011: Grafting done at [facility] for recurrent clots; she was on xarelto at this time. She was initially on 20 mg but had heavy and long menstrual periods needing an emergent hysterectomy and was then placed on 10 mg dosing. - 2017: Switched to low dose eliquis 2.5 mg BID for insurance reasons. LAC testing at this time was negative - 2019: Grafting #2 done at [facility] (Dr. Scanlon) She is on Eliquis 2.5 mg BID. She has a heart monitor per cardiology for palpitations. She denies any new clots or bleeding issues. She has vascular disease and continues to be followed and treated at [facility]. She recently had a colonoscopy and EGD [...] Intranasal Daily June 13, 2017 7:29am 06-13-2017 [facility] ([id number]) sitaGLIPtin-metFORMIN (JANUMET) 50-500 mg per tablet Take [...] 2019) follows with Dr. Christy Moreland at [facility] Peripheral Vascular Disease; stents x 2 (2008, 2011) Carotid artery disease Epilepsy on levetiracetam Obesity Diabetes Irritable Bowel Syndrome PAST SURGICAL HISTORY Vascular stents in i (more content not included)...NormalWilson Memorial Hospitalprehensive metabolic 2000 panelon 05-04-7779Xnzghgj [Mass/Vol]4.0 g/dLNormal3.9-4.9CThe [facility] on above:Order Comment: Specimen Type: BLOOD SPECIMENOrdering Facility: [facility] Address:[address] [place], [place] [address]Performed By: #### 87690-7 ####[facility] LABCLIA [id number] [place], [place] [address]KFU [Catalytic activity/Vol]135 U/UArig66-231NszjzizwdMercy Health St. [facility] on above:Order Comment: Specimen Type: BLOOD SPECIMENOrdering Facility: [facility] Address:[address] [place], [place] [address]Performed By: #### 59917-9 ####[facility] LABCLIA [id number] [place], [place] [address]DRU [Catalytic activity/Vol]23 U/LNormal7-38[facility] on above:Order Comment: Specimen Type: BLOOD SPECIMENOrdering Facility: [facility] Address:[address] [place], [place] [address]Performed By: #### 56426- 8 ####[facility] LABCLIA [id number] [place], [place] [address]Rrfxl gap [Moles/Vol]9 mmol/LNormal9-18[facility] on above:Order Comment: Specimen Type: BLOOD SPECIMENOrdering Facility: [facility] Address:[address] [place], [place] [address]Performed By: #### 49783-0 ####[facility] LABCLIA [id number] [place], [place] [address]DRP [Catalytic activity/Vol]22 U/RKhxjqy38-33RwblvjksbMercy Health St. [facility] on above:Order Comment: Specimen Type: BLOOD SPECIMENOrdering Facility: [facility] Address:[address] [place], [place] [address]Performed By: #### 25310-1 ####[facility] LABCLIA [id number] [place] [address] Bilirubin [Mass/Vol]0.3 mg/dLNormal0.2-1.3CThe [facility] on above:Order Comment: Specimen Type: BLOOD SPECIMENOrdering Facility: [facility] Address:[address] [place], [place] [address]Performed By: #### 46558-8 ####[facility] LABCLIA [id number] [facility] [place], [place] [address]Oryufvf [Mass/Vol]9.7 mg/dLNormal8.5-10.2C[facility] on above:Order Comment: Specimen Type: BLOOD SPECIMENOrdering Facility: [facility] Address:[address] [place], [place] [address]Performed By: #### 60645-4 ####[facility] LABCLIA [id number] [place], [place] [address]Tqmanscv [Moles/Vol]103 mmol/MHpaarf52-135ZnxakhpwmMercy Health St[facility] on above: Order Comment: Specimen Type: BLOOD SPECIMENOrdering Facility: [facility] Address:[address] [place], [place] [address]Performed By: #### 88957- 8 ####[facility] LABCLIA [id number] QUARRY T[facility]A [facility] [place], [place] [address]IZ5 [Moles/Vol]27 mmol/ROqxrxc32-60IvajdvzvcMercy Health St. [facility] Hospital on above:Order Comment: Specimen Type: BLOOD SPECIMENOrdering Facility: [facility] Address:[address] [place], [place] [address]Performed By: #### 00317-3 ####[facility] LABCLIA [id number] [place], [place] [address]Utvjiosxsn [Mass/Vol]0.89 mg/dL Normal0.58-0.96[facility] on above:Order Comment: Specimen Type: BLOOD SPECIMENOrdering Facility: [facility] Address:[address] [place] [address]Qieyurhal By: #### 36187-7 ####[facility] LABCLIA [id number] [place], [place] [address]Uggvufemui and Glomerular filtration rate.predicted panel (S/P/Bld)78 mL/min/1.73m???Normal>=60[facility] on above:Order Comment: Specimen Type: BLOOD SPECIMENOrdering Facility: [facility] Address:[address] [place], [place] [address]Result Comment: Estimated Glomerular Filtration Rate (eGFR) is calculated using the 2020 CKD-EPI creatinine equation. This equation utilizes serum creatinine, sex, and age as parameters. The creatinine assay has traceable calibration to isotope dilution- mass spectrometry. Refer to KDIGO guidelines for clinical interpretation. In patients with unstable renal function, e.g. those with acute kidney injury, the eGFR may not accurately reflect actual GFR.Performed By: #### 43122-4 ####[facility] LABCLIA [id number] [place], [place] [address]Abvmmjx [Mass/Vol]96 mg/mBLagyly29-92HzjrvspvsMercy Health St[address] [facility] on above:Order Comment: Specimen Type: BLOOD SPECIMENOrdering Facility: [facility] Address:[address] [place] [address]Fltzsc Comment: The [place] Diabetes Association (ADA) provides guidance for cutoff values for fasting glucose and random glucose. The ADA defines fasting as no caloric intake for at least 8 hours. Fasting plasma glucose results between 100 to 125 mg/dL indicate increased risk for diabetes (prediab etes). Fasting plasma glucose results greater than or [...] Standards of Medical Care in Diabetes 2016, [place] Diabetes Association. Diabetes Care. 2016.39(Suppl 1).Performed By: #### 51561-0 ####[facility] LABCLIA [id number] [place], [place] [address]Votdoyvxx [Moles/Vol]3.5 mmol/LLow3.7-5.1C[facility] on above:Order Comment: Specimen Type: BLOOD SPECIMENOrdering Facility: [facility] Address:[address] [place], [place] [address]Performed By: #### 69974-1 ####[facility] LABIA [id number] [place], [place] [address]Fojzwzy [Mass/Vol]7.7 g/dL Normal6.3-8.0[facility] on above:Order Comment: Specimen Type: BLOOD SPECIMENOrdering Facility: [facility] Address:[address] [place], [place] [address]Performed By: #### 07853-6 ####[facility] LABIA [id number] [place] [address] Sodium [Moles/Vol]139 mmol/QYamlqc627-050MmvobtolyMercy Health St. [facility] on above:Order Comment: Specimen Type: BLOOD SPECIMENOrdering Facility: [facility] Address:[address] [place], [place] [address]Performed By: #### 78206-2 ####[facility] LABCLIA [id number] [place], [place] [address]Vbnr nitrogen [Mass/Vol]14 mg/dLNormal7-21[facility] on above:Order Comment: Specimen Type: BLOOD SPECIMENOrdering Facility: [facility] Address:[address] [place], [place] [address]Performed By: #### 54896-1 ####[facility] LABCLIA [id number] [place] [address]Alanine aminotransferase [Enzymatic activity/volume] in Serum or PlasmaOrdered By: Dennis Clark on 19-99-0487HEU [Catalytic activity/Vol]23 U/LNormal7-52Cleveland ClinicComment on above:Performed By: #### HS TROP, TERESITA, CMP, CK, LIPASE, CBC #### [facility] [address] [place] [address] USAAlbumin [Mass/volume] in Serum or Plasma by Bromocresol green (BCG) dye binding methoOrdered By: Dennis Clark on 37-62-3903Hryxqgv BCG dye [Mass/Vol]4.0 g/dL3.5-5.7FSt. Anthony's HospitalAlkaline phosphatase [Enzymatic activity/volume] in Serum or PlasmaOrdered By: Dennis Clark on 91-12-4434FII [Catalytic activity/Vol]91 U/YGkrwwe47-007FuvodgvzuCleveland ClinicComment on above:Performed By: #### HS TROP, TERESITA, CMP, CK, LIPASE, CBC #### [place] [id number] USAAmylase [Enzymatic activity/volume] in Serum or Plasma Ordered By: Dennis Clark on 53-23-8893Flqtpgy [Catalytic activity/Vol]25 U/LLow 29-103Cleveland ClinicComment on above:Performed By: #### HS TROP, TERESITA, CMP, CK, LIPASE, CBC #### [facility] [address] [place], [place] [id number] USAAspartate aminotransferase [Enzymatic activity/volume] in Serum or PlasmaOrdered By: Dennis Clark on 84-39-9009QQK [Catalytic activity/Vol] 26 U/PYcatth14-10RexxfmvekCleveland ClinicComment on above:Performed By: #### HS TROP, TERESITA, CMP, CK, LIPASE, CBC #### [facility] [address] [place] [id number] USAAutomated basophil %Ordered By: Dennis Clark on 02-14-2023 Basophils/100 WBC (Bld)0.9 %Normal.Cleveland ClinicComment on above:Performed By: #### HS TROP, TERESITA, CMP, CK, LIPASE, CBC #### [place] [address] USAAutomated basophil countOrdered By: Dennis Clark on 10-16-3863Lfpyzdlga (Bld) [#/Vol]0.1 10*3/uLNormal0.0-0.2FSt. Anthony's HospitalComment on above:Result Comment: PERFORMED BY: [place] [address] PATHOLOGIST SHOE STITCHER ODD ANNE PARKINSON M.D.Performed By: #### HS TROP, TERESITA, CMP, CK, LIPASE, CBC #### [place] [address] USAAutomated blood monocyte countOrdered By: Dennis Clark on 07-09-5096Uennxepfg (Bld) [#/Vol]0.4 10*3/uLNormal0.0-0.8Cleveland ClinicComment on above:Performed By: #### HS TROP, TERESITA, CMP, CK, LIPASE, CBC #### [place] [address] USAAutomated eosinophil %Ordered By: Dennis Clark on 02-14-2023 Eosinophils/100 WBC (Bld)2.5 %Normal.Cleveland ClinicComment on above:Performed By: #### HS TROP, TERESITA, CMP, CK, LIPASE, CBC #### [place] [address] USAAutomated eosinophil countOrdered By: Dennis Clark on 43-13-9428Smmcrvyiigq (Bld) [#/Vol]0.2 10*3/uLNormal0.0-0.45Cleveland ClinicComment on above:Performed By: #### HS TROP, TERESITA, CMP, CK, LIPASE, CBC #### [place] [address] USAAutomated monocyte %Ordered By: Dennis Clark on 02-14-2023 Monocytes/100 WBC (Bld)5.1 %Normal.Cleveland ClinicComment on above:Performed By: #### HS TROP, TERESITA, CMP, CK, LIPASE, CBC #### [facility] [address] [place] [address] USAAutomated neutrophil %Ordered By: Dennis Clark on 02-14-2023 Neutrophils/100 WBC (Bld)61.5 %Normal.Cleveland ClinicComment on above:Performed By: #### HS TROP, TERESITA, CMP, CK, LIPASE, CBC #### [facility] [address] [place] [address] USABilirubin.total [Mass/volume] in Serum or PlasmaOrdered By: Dennis Clark on 07-98-3368Wfzyzdkcw [Mass/Vol]0.5 mg/dLNormal0.3-1.0Cleveland ClinicComment on above:Performed By: #### HS TROP, TERESITA, CMP, CK, LIPASE, CBC #### [place] [address] USACalcium [Mass/volume] in Serum or PlasmaOrdered By: Dennis Clark on 23-77-0274Gazskat [Mass/Vol]9.0 mg/dLNormal8.6-10.3FSt. Anthony's HospitalComment on above:Performed By: #### HS TROP, TERESTIA, CMP, CK, LIPASE, CBC #### [place] [address] USACarbon dioxide, total [Moles/volume] in Serum or Plasma Ordered By: Dennis Clark on 07-20-7281MJ6 [Moles/Vol]28.0 mmol/FMgnxjl68.0-31.0 Cleveland ClinicComment on above:Performed By: #### HS TROP, TERESITA, CMP, CK, LIPASE, CBC #### [place] [address] USAChloride [Moles/volume] in Serum or PlasmaOrdered By: Dennis Clark on 68-60-8528Lpfktosc [Moles/Vol]104 mmol/GJesqyw54-731KbolpzmzkCleveland ClinicComment on above:Performed By: #### HS TROP, TERESITA, CMP, CK, LIPASE, CBC #### [place] [address] USAComplete Blood Count Auto Diffon 32-50-3821Sjim Corpuscular HGB Conc32.5 g/pDAfgiwk55.0-35.0The [facility] Physician GroupComment on above:Performed By: #### HS TROP, TERESITA, CMP, CK, LIPASE, CBC #### [place] [address] USAMonocytes/100 WBC (Bld)23.45 %High0.00-20.00The [facility] Physician GroupComment on above:Result Comment: For adults in ED, MDW > 20.0 may be associated with a higher risk of sepsis during the first 12 hrs of hospital admissionPerformed By: #### HS TROP, TERESITA, CMP, CK, LIPASE, CBC #### [place] [address] USANRBC%0.1 /100{WBC}Normal0-0.5[facility] Comment on above:Performed By: #### HS TROP, TERESITA, CMP, CK, LIPASE, CBC #### [place] [address] USAComprehensive Metabolic Panelon 47-85-5178Zluqcnu [Mass/Vol]4.0 g/dLNormal3.5-5.7The [facility] Physician GroupComment on above: Performed By: #### HS TROP, TERESITA, CMP, CK, LIPASE, CBC #### [place] [address] USACreatinine Clr Calc Lembclmw365.24NormalThe Duke University Hospital Physician GroupComment on above:Performed By: #### HS TROP, TERESITA, CMP, CK, LIPASE, CBC #### [place] [address] USAGFR/1.73 sq M.predicted MDRD (S/P/Bld) [Vol rate/Area] mL/min/{1.73_m2}NormalThe Duke University Hospital Physician GroupComment on above:Performed By: #### HS TROP, TERESITA, CMP, CK, LIPASE, CBC #### [place] [address] USACreatine kinase [Enzymatic activity/volume] in Serum or PlasmaOrdered By: Dennis Clark on 23-02-0534BK [Catalytic activity/Vol]22 U/LLow Cleveland ClinicComment on above:Performed By: #### HS TROP, TERESITA, CMP, CK, LIPASE, CBC #### [facility] [address] [place] [address] USACreatinine [Mass/volume] in Serum or PlasmaOrdered By: Dennis Clark on 34-30-9728Layyusxbyk [Mass/Vol]0.85 mg/dLNormal0.60-1.20Cleveland ClinicComment on above:Performed By: #### HS TROP, TERESITA, CMP, CK, LIPASE, CBC #### [facility] [address] [place] [address] USAECG 12 lead ECGon 31-69-2784MGX 12 lead [facility]SAL[facility] [place] [address] [place] [address] Electrocardiograph Report Signed Patient: Naila Beltran MR#: [id number] 7 : 1970 Acct:[id number] Age/Sex: 52 / F ADM Date: 02/14/23 Loc: ER Room: Type: [facility] ER Attending Dr: Ordering Provider: Dennis Clark [...] MUS Signed By Dennis Clark MD 02/14/[address] [place] [address] Physician GroupErythrocyte distribution width [Ratio] by Automated countOrdered By: Dennis Clark on 08-38-8511Rgyeaspfjrp distribution width (RBC) [Ratio]16.4 %High11.9-15.3FSt. Anthony's HospitalComment on above:Performed By: #### HS TROP, TERESITA, CMP, CK, LIPASE, CBC #### [facility] [address] [place] [address] USAErythrocytes [#/volume] in Blood by Automated countOrdered By: Dennis Clark on 08-73-5029DTS (Bld) [#/Vol]3.88 10*6/uLNormal3.60-5.00 Cleveland ClinicComment on above:Performed By: #### HS TROP, TERESITA, CMP, CK, LIPASE, CBC #### [facility] [address] [place] [id number] USAGlucose [Mass/volume] in Serum or PlasmaOrdered By: Dennis Clark on 23-42-8254Liflcdx [Mass/Vol]111 mg/pVMnmd83-439OneenwaiyCleveland ClinicComment on above:ADA recommended reference rangeRandom Glucose Reference Range is dependent on time and content of last meal. Glucose of more than 200 mg/dL in a nonstressed, ambulatory subject supports the diagnosisof Diabetes Mellitus.Result Comment: Random Glucose Reference Range is dependent on time and content of last meal. Glucose of more than 200 mg/dL in a nonstressed, ambulatory subject supports the diagnosis of Diabetes Mellitus. ADA recommended reference rangePerformed By: #### HS TROP, TERESITA, CMP, CK, LIPASE, CBC #### [facility] [address] [place] [phone] USAHematocrit [Volume Fraction] of Blood by Automated count Ordered By: Dennis Clark on 70-27-0195Ijoqraguxp (Bld) [Volume fraction]33.5 %Low 34.0-46.4FSt. Anthony's HospitalComment on above:Performed By: #### HS TROP, TERESITA, CMP, CK, LIPASE, CBC #### [facility] [address] [place] [address] USAHemoglobin [Mass/volume] in BloodOrdered By: Dennis Clark on 37-21-5479Lautqmowke (Bld) [Mass/Vol]10.9 g/dLLow11.8-15.4FSt. Anthony's HospitalComment on above:Performed By: #### HS TROP, TERESITA, CMP, CK, LIPASE, CBC #### [place] [address] USALeukocytes [#/volume] corrected for nucleated erythrocytes in Blood by Automated counOrdered By: Dennis Clark on 86-83-7923CVZ corrected for nucl RBC Auto (Bld) [#/Vol]7.7 10*3/uL3.8-11.6FSt. Anthony's Hospital Leukocytes [#/volume] in Blood by Automated countOrdered By: Dennis Clark on 05-58-8744WDN (Bld) [#/Vol]7.7 10*3/uLNormal3.8-11.6FSt. Anthony's HospitalComment on above:Performed By: #### HS TROP, TERESITA, CMP, CK, LIPASE, CBC #### [place] [address] USALipase [Enzymatic activity/volume] in Serum or Plasma Ordered By: Dennis Clark on 45-26-3164Yhbewy [Catalytic activity/Vol]50.0 U/L Qahfkv65.0-82.0Cleveland ClinicComment on above:Result Comment: PERFORMED BY: [place] [address] PATHOLOGIST SHOE STITCHER ODD ANNE PARKINSON M.D.Performed By: #### HS TROP, TERESITA, CMP, CK, LIPASE, CBC #### [place] [address] USALymphocytes [#/volume] in Blood by Automated countOrdered By: Dennis Clark on 38-91-6386Mgytltcrchc (Bld) [#/Vol]2.3 10*3/uLNormal1.00-4.8 Cleveland ClinicComment on above:Performed By: #### HS TROP, TERESITA, CMP, CK, LIPASE, CBC #### [place] [address] USALymphocytes/100 leukocytes in Blood by Automated count Ordered By: Dennis Clark on 43-11-9591Reidgkdmntp/100 WBC (Bld)30.0 %Normal. Cleveland ClinicComment on above:Performed By: #### HS TROP, TERESITA, CMP, CK, LIPASE, CBC #### [facility] [address] [Entitic mass] by Automated countOrdered By: Dennis Clark on 14-41-6753AFL (RBC) [Entitic mass]28.0 jiEdheup87.7-34.3FSt. Anthony's HospitalComment on above:Performed By: #### HS TROP, TERESITA, CMP, CK, LIPASE, CBC #### [facility] [address] [place] [address] Auto (RBC) [Mass/Vol]Ordered By: Dennis Clark on 34-80-3800NFYW (RBC) [Mass/Vol]32.5 g/dL32.0-35.0[facility] HospitalV [Entitic volume] by Automated countOrdered By: Dennis Clark on 02-62-6803JSB (RBC) [Entitic vol]86.2 pMPljwfs89-419JubgubulmCleveland ClinicComment on above:Performed By: #### HS TROP, TERESITA, CMP, CK, LIPASE, CBC #### [facility] [address] [place] [address] USAMonocyte distribution width [Entitic volume] in Blood by AutomatedOrdered By: Dennis Clark on 48-83-7543Uwrjbhht distribution width Auto (Bld) [Entitic vol]23.45 %0.00-20.00Cleveland ClinicComment on above:For adults in ED, MDW > 20.0 may be associated with a higher risk of sepsis during the first 12 hrs of hospital admissionNeutrophils [#/volume] in Blood by Automated countOrdered By: Dennis Clark on 66-44-7535Yjxhmufjxhs (Bld) [#/Vol]4.7 10*3/uLNormal1.8-7.7FSt. Anthony's HospitalComment on above:Performed By: #### HS TROP, TERESITA, CMP, CK, LIPASE, CBC #### [place] [address] USANo Panel InformationOrdered By: Dennis Clark on 02-14-2023 Estimated GFR (CKD-EPI)> 60.0 mL/MinCleveland ClinicPharmacy Creatinine Clearance (Ehrh138.24Cleveland ClinicNucleated erythrocytes [Presence] in Blood by Automated countOrdered By: Dennis Clark on 48-36-9268Cbpsoojrh RBC Auto Ql (Bld)0.1 /100{WBC}0-0.5FSt. Anthony's HospitalPlatelet mean volume [Entitic volume] in Blood by Automated count Ordered By: Dennis Clark on 34-95-8499Uyaliirb mean volume (Bld) [Entitic vol]7.3 fLNormal6.3-10.7FSt. Anthony's HospitalComment on above:Performed By: #### HS TROP, TERESITA, CMP, CK, LIPASE, CBC #### [place] [address] USAPlatelets [#/volume] in Blood by Automated countOrdered By: Dennis Clark on 61-82-0134Mltwxohum (Bld) [#/Vol]251 10*3/uZQqftyp529-142 Cleveland ClinicComment on above:Performed By: #### HS TROP, TERESITA, CMP, CK, LIPASE, CBC #### [place] [address] USAPotassium [Moles/volume] in Serum or PlasmaOrdered By: Dennis Clark on 97-45-9608Pxdkhlnpi [Moles/Vol]3.9 mmol/LNormal3.5-5.1FSt. Anthony's HospitalComment on above:Performed By: #### HS TROP, TERESITA, CMP, CK, LIPASE, CBC #### [place] [address] USAProtein [Mass/volume] in Serum or PlasmaOrdered By: Dennis Clark on 19-41-3799Tutpfqe [Mass/Vol]7.4 g/dLNormal6.4-8.9Cleveland ClinicComment on above:Performed By: #### HS TROP, TERESITA, CMP, CK, LIPASE, CBC #### [address] [place] [address] USASerum globulin measurement by calculation (mass/volume) Ordered By: Dennis Eduardo on 52-92-4240Vmhhzmvm (S) [Mass/Vol]3.4 g/dLNormal Cleveland ClinicComment on above:Performed By: #### HS TROP, TERESITA, CMP, CK, LIPASE, CBC #### [place] [address] USASerum or plasma albumin/globulin mass ratioOrdered By: Dennis Clark on 64-16-4428Oimtghs/Globulin [Mass ratio]1.2 {ratio}NormalCleveland ClinicComment on above:Performed By: #### HS TROP, TERESITA, CMP, CK, LIPASE, CBC #### [place] [address] USASerum or plasma anion gap determinationOrdered By: Dennis Clark on 51-40-1749Vkthk gap [Moles/Vol]10.9 mmol/LNormal6.0-15.0Cleveland ClinicComment on above:Performed By: #### HS TROP, TERESITA, CMP, CK, LIPASE, CBC #### [place] [address] USASodium [Moles/volume] in Serum or PlasmaOrdered By: Dennis Clark on 62-37-3543Zcmiht [Moles/Vol]139 mmol/EVjtkoc355-691OzgilnlwvCleveland ClinicComment on above:Performed By: #### HS TROP, TERESITA, CMP, CK, LIPASE, CBC #### [place] [address] USATroponin I High Sensitivityon 40-15-4584Zihkllka I High Sensitivity2.4 pg/mLNormal0.0-15.0The [facility] Hospital Physician GroupComment on above: Result Comment: PERFORMED BY: [place] [address] PATHOLOGIST SHOE STITCHER ODD ANNE PARKINSON M.D.Performed By: #### HS TROP, TERESITA, CMP, CK, LIPASE, CBC #### [address] [address] USATroponin I.cardiac [Mass/volume] in Serum or Plasma by Detection limit <= 0.01 ng/Ordered By: Dennis Clark on 87-81-3987Fcnujmgp I.cardiac DL <= 0.01 ng/mL [Mass/Vol]2.4 pg/mL0.0-15.0Cleveland ClinicUrea nitrogen [Mass/volume] in Serum or PlasmaOrdered By: Dennis Clark on 00-68-3456Jcrm nitrogen [Mass/Vol]10 mg/dLNormal7-25Cleveland ClinicComment on above:Performed By: #### HS TROP, TERESITA, CMP, CK, LIPASE, CBC #### [facility] [address] [place] [phone] USAXR chest 1V portableon 08-81-4731IP chest 1V portable [facility] Main [place] [address] [place] [address] XRay Report Signed Patient: Naila Beltran MR#: [id number] 7 : 1970 Acct:[id number] Age/Sex: 52 / F ADM Date: 02/14/23 Loc: ER Room: Type: [facility] ER Attending Dr: Copies to: Dennis Clark MD Ordering Provider: Dennis Clakr MD Date of Service: 02/14/23 XR/XR chest [...] Chris Holly M.D.02/14/2023 6:54 PM Dictation Location: [place] [address] Transcribed By: [facility] 02/14/231853 Dictated By: Chris Holly DO 02/14/231852 Signed By: 02/14/231853[facility] Physician GroupCardiovascular Lab Reporton 33-18-6699Ahynamafojrecc Lab ReportUnOhioHealth Van Wert Hospital Patient Name: Naila Beltran [facility] MR #: [id number] Physician: Yas Najera of [facility] Nguyễn Medicine Service Date: 09/18/2020 Division of Birthdate: 1970 Cardiology Room #: CC Adult Cardiovascular Services [facility] [address] [place] [id number] Cardiovascular Laboratory Report INDICATION: The patient is [...] the informed consent. 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 The right groin was prepped and draped in usual fashion. Using micropuncture technique, the right common femoral artery was accessed. The inner cannula angiography was performed. The access was then upsized to a 4-Spanish x 11 cm sheath. Access was obtained using same technique in the right common femoral vein and a 5-Spanish x 11 cm sheath was placed. A 5-Spanish Martinez catheter was used for right heart catheterization with measurement of pressures and calculation of cardiac output using the estimated Teresa method. Martinez catheter was removed. Bilateral selective coronary angiography was then performed using 4-Spanish JL4 and JR4 diagnostic catheters. Catheters were [...] Nguyễn M.D. Date Trans: 09/18/2020 02:26 P/mmo DN_JN:[id number] HealthANES POSTPROC EVALon 19-74-7995KRWF POSTPROC EVALHNO ID: [id number] Author: Hernesto Chew Service: ? Author Type: Anesthesiologist Type: Anesthesia Postprocedure Evaluation Filed: 03/16/2020 2:46 PM Note Text: POST ANESTHESIA EVALUATION NOTE : 1970 Procedure Summary Date: 03/16/20 Room / Location: OR05 / OR Anesthesia Start: 735 Anesthesia Stop: [...] March 16, 2020 TIME: 2:46 PM CSN: [id number] Hospital PRE-OPon [id number] PRE-OPHNO ID: [id number] Author: Hernesto Chew Service: ? 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 - ELIQUIS 2.5 mg tab tab(s) Take 1 tablet by mouth twice daily. - Comp.Stocking,Thigh,Long,X-Lrg misc Wear stocking daily I have interviewed and examined the patient. I have reviewed the medical record and/or the pre-anesthesia evaluation, pertinent labs, and test results. This contains updated information obtained within 48 hours of Surgery/Procedure. SIGNATURE: Hernesto Chew MD PATIENT NAME: Naila Beltran DATE: March 16, 2020 TIME: 7:17 AM CSN: [id number] [facility]irmary OP NOTon 03-16-2020 BRIEF OP NOTHNO ID: [id number] Author: Lu Luke MD Service: General Surgery Author Type: Resident Type: Brief Op Note Filed: 03/16/2020 9:11 AM Note Text: BRIEF OP NOTE LOG ID: [id number] Surgery/Procedure Date: 03/16/2020 Incision/Procedure Start Time: 7:56 AM Incision Close/Procedure End Time: 9:06 AM Surgeon(s)/Proceduralist(s) and Trade Show Specialist(s): Surgeon(s) and Role: * Cortney Haywood - Primary * Lu Luke MD - Resident - Assisting Procedure(s): Laparoscopic cholecystectomy Anesthesia: General Findings: cholelithiasis, gallbladder deeply embedded in liver Tubes/Drains: none Estimated Blood Loss: 15 mls Specimens: gallbladder Implants: * No implants in log * Complications: None Pre-Op/Pre-Procedure Diagnosis: Pre-Op Diagnosis Codes: * Biliary colic [K80.50] Post-Op/Post-Procedure Diagnosis: Same SIGNATURE: Lu Luke MD PATIENT NAME: Naila Beltran DATE: March 16, 2020 TIME: 9:10 AM PAGER/CONTACT #: [phone] Island Leper Hospital PHYSICALon 03-73-7558MCNDNHN PHYSICALHNO ID: [id number] Author: Lu Luke MD Service: General Surgery [...] DATE: March 16, 2020 TIME: 7:08 AM PAGER:[facility] HospitalNURSBOSTON HOPE [facility] PROGon [id number] PROG HNO ID: [id number] Author: Ambar ChawlaRnZoraida Swann RN Service: Nursing Author Type: Registered Nurse Type: [...] (RECOMMENDATION): None Electronically Signed By: Ambar Swann RNMiddlesex County Hospital PROG HNO ID: [id number] Author: Howie (Rn) LITO Jenkins Service: Nursing Author Type: Registered Nurse Type: Nursing Progress Note Filed: 03/16/2020 6:54 AM Note Text: PATIENT EDUCATION TOPIC: PROCEDURE / SURGERY: Pre-op Teaching: Protocols PATIENT NAME: Naila Beltran PATIENT LOCATION: [facility] [...] (RECOMMENDATION): None Electronically Signed By: Howie Jenkins RNMilford [facility] NOon [id number] NOHNO ID: [id number] Author: Cortney Haywood Service: General Surgery Author Type: Physician Type: Operative Report Filed: 03/16/2020 9:49 AM Note Text: [facility] - Operative Report NAILA BELTRAN : 1970 AGE: 49. SEX: F PATIENT TYPE: A HOSP SVC: [facility] LOCATION: [facility] ATTENDING PHYSICIAN: Cortney Haywood M.D. CSN NUMBER: [id number] DATE OF SURGERY/PROCEDURE: 03/16/2020 INCISION/PROCEDURE START TIME: 7:56 AM INCISION CLOSE/PROCEDURE END TIME: 9:06 AM PREOPERATIVE DIAGNOSIS: Acute cholecystitis. POSTOPERATIVE DIAGNOSIS: Acute on chronic cholecystitis. SURGEON: Cortney Haywood M.D. LOCKER ROOM SUPERVISOR: Resident surgeon, Dr. Lu Luke. SURGERY/PROCEDURE: Laparoscopic [...] 0 Vicryl on a UR6 in a kpeqzx-kz-bijpi fashion. We closed all of our skin incisions with 4-0 Monocryl running subcuticular stitches followed by SureClose. TEACHING SURGEON ATTESTATION: I was scrubbed and present for the entirety of the procedure. Cortney Haywood M.D. CK:[id number] /[id number] NoFramingham Union HospitalURGICAL PATHOLOGYon [id number] PATHOLOGYSpecimen originated from [facility] Specimen #: [id number] Submitting Physician: CORTNEY HAYWOOD MD FINAL DIAGNOSIS Gallbladder, cholecystectomy - Cholelithiasis and reactive lymph node. BRENNON/pamela 03/18/2020 Simran Wolf M.D. (Electronic Signature) SPECIMEN [...] with a wall thickness of 0.1 cm. Equal Opportunity Specialist sections are submitted in one cassette. WE/glmax 03/16/2020 Gross examination performed at [facility], [address] [place] [address] Date of Report: 03/18/2020 Date of Procedure: 03/16/2020 Date of Receipt: 03/16/2020 Submitted by: CORTNEY HAYWOOD MD Location: [facility] Diagnostic interpretation performed at [facility], [address] [place] [address]. CLIA Number: [id number] Medical Center [id number]:Naila Beltran MRN: Height:5' 6 [pt rpt[(1.676 m) Weight:256 lb (116.121 kg) Outpatient Medications as of 03/16/20: ZENPEP 40,000-126,000- 168,000 unit cpDR docusate sodium (COL-RITE) 100 mg capsule cetirizine (ZYRTEC) 10 mg tablet dicyclomine (BENTYL) 20 mg tablet Fluticasone Furoate 27.5 mcg/actuation nasal spray fluticasone-vilanterol (BREO ELLIPTA) 200-25 mcg/dose inhaler pantoprazole DR (PROTONIX) 40 mg tablet sertraline (ZOLOFT) 100 mg tablet sitaGLIPtin-metFORMIN (JANUMET) 50-500 mg per tablet ELIQUIS 2.5 mg tab tab(s) aspirin 81 mg chewable tablet albuterol HFA (VENTOLIN HFA) 90 mcg/actuation inhaler levETIRAcetam XR (KEPPRA XR) 500 mg 24 hr tablet busPIRone HCl 30 mg tablet metoprolol tartrate, short acting, (LOPRESSOR) 25 mg tablet atorvastatin (LIPITOR) 40 mg tablet Comp.Stocking,Thigh,Long,X-Lrg misc pregabalin (LYRICA) 150 mg capsule Multivitamins ORAL Chew Admission/Clinic Administered Medications as of 03/16/20: lidocaine 10 mg/mL (1 %) 1-2 mg injection (XYLOCAINE) lactated ringers infusion clindamycin iv piggyback 900 mg in D5W 50 mL (CLEOCIN) lactated ringers infusion Problem List: Hypercoagulable state (HCC) [D68.59] Vascular disease [I99.9] Anticoagulated [Z79.01] HLD (hyperlipidemia) [E78.5] 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 Ph.[phone] Vidya Houston, RN, RN 03/03/2020 3:09 PM Signed Returned patient's phone call. There was no answer so I left a voicemail message asking if she could have her microsoft dynamics developer fax the lab results to our office. [facility] Vital Signs Date TimeVital SignValuePerforming QkbjfzdfiQjwvxxnu39-10-9019 08:46-0400Body eflkds764.6 cmAndangeli Hannon PA-C Work Phone: [facility]10-27-2025 08:46-0400Body mass index (BMI) [Ratio]39.56 kg/a8Pbrejiangeli Hannon PA-C Work Phone: [facility]10-27-2025 08:46-0400Body fgnnotunvtc39.11 [degF]Cece Hannon PA-C Work Phone: [facility] System[facility] HospitalArrtkr85-42-8813 08:46-0400Body .13 kgAndangeli Hannon PA-C Work Phone: [facility]10-27-2025 08:46-0400Diastolic blood itewkzno99 mm[Hg]Cece Hannon PA-C Work Phone: [facility]10-27-2025 08:46-0400Heart rate 60 /minAndangeli Hannon PA-C Work Phone: [facility] SystemGennio Eyyflu48-02-9245 08:46-3949BgZ3% (BldA) [Mass fraction]97 %Cece Hannon PA-C Work Phone: [facility]10-27-2025 08:46-0400Systolic blood izmahzpt378 mm[Hg]Cece Hannon PA-C Work Phone: [facility] [employer] Ifvnfa66-89-9201 11:12-0400Body juezrx520.6 cmAfranco Hannon PA-C Work Phone: [facility] [employer] Vhsvpj05-20-8641 11:12-0400Body mass index (BMI) [Ratio]39.06 kg/i9Cvqpxfangeli Hannon PA-C Work Phone: [facility] [employer] Kpumbg97-86-8216 11:12-0400Body .5 [degF]Cece KIM-C Work Phone: [facility] [employer] Fnwxzi26-74-0461 11:12-0400Body auftcm934.77 kgAndangeli Hannon PA-C Work Phone: [facility] [employer] Urifeu06-51-8212 11:12-0400Diastolic blood glnlaqfy19 mm[Hg]Cece KIM-C Work Phone: [facility] [employer] Uwfpsg86-07-2491 11:12-0400Heart rate 55 /minAndangeli Hannon PA-C Work Phone: [facility] SystemGennio Eptdqa04-28-9742 11:12-8089QeM1% (BldA) [Mass fraction]97 %Cece KIM-C Work Phone: [facility] [employer] Azhmox37-96-3537 11:12-0400Systolic blood nqfarqpv931 mm[Hg]Cece KIM-C Work Phone: [facility] [employer] Avirkn37-31-0660 13:12-0400Body .6 cmAfranco Hannon PA-C Work Phone: [facility] [employer] Pgpvbb15-79-4623 13:12-0400Body mass index (BMI) [Ratio]39.06 kg/c8Qjntcdangeli Hannon PA-C Work Phone: [facility] SystemGennio Rusbkl35-67-0902 13:12-0400Body gkctpzoppvb51.5 [degF]Cece Hannon PA-C Work Phone: [facility]07-01-2025 13:12-0400Body ugoesv792.77 kgAndangeli Hannon PA-C Work Phone: [facility]07-01-2025 13:12-0400Diastolic blood vnpstqgi44 mm[Hg]Cece Hannon PA-C Work Phone: [facility]07-01-2025 13:12-0400Heart rate 55 /minCece Hannon PA-C Work Phone: [facility]07-01-2025 13:12-8754TsV9% (BldA) [Mass fraction]95 %Cece Hannon PA-C Work Phone: [facility]07-01-2025 13:12-0400Systolic blood lqlhyweu413 mm[Hg]Cece Hannon PA-C Work Phone: [facility]04-28-2025 08:31-0400Blood Pressure LocationWyckoff Heights Medical Centerleydi Nassar [facility]04-28-2025 08:31-0400 Diastolic blood wmhokpmi85 mm[Hg]Yanni Nassar [facility]04-28-2025 08:31-0400Heart rate55 /minMohamed Cesario [facility]04-28-2025 08:31-0400 Respiratory rate18 /minMohamed Cesario [facility]04-28-2025 08:31-6418GlY5% (BldA) [Mass fraction]97 %Yanni Nassar [facility]04-28-2025 08:31-0400 Systolic blood rtskbjga110 mm[Hg]Yanni Brittan [facility]04-14-2025 10:20-0400Body aczfzf441.2 cmAdajose Michele MD Work Phone: [facility]and Fgpovi78-67-6094 10:20-0400Body mass index (BMI) [Ratio]37.47 kg/j0EakeirStef Michele MD Work Phone: [facility]and Ufybrl31-54-7895 10:20-0400Body temperature 97.2 [degF]Stef Michele MD Work Phone: [place] [address]-14-2025 10:20-0400Body wjocqd396.54 kgAdajose Michele MD Work Phone: [place] [address]-14-2025 10:20-0400Diastolic blood jgvgoylu21 mm[Hg]Stefjose Michele MD Work Phone: c[facility] SystemPxawro27-33-6792 10:20-0400Heart rate72 /min Stefjose Micehle MD Work Phone: [place] [address]-14-2025 10:20-0400Respiratory rate 16 /minAdajose Michele MD Work Phone: [place] [address]-14-2025 10:20-2247MnZ0% (BldA) [Mass fraction]95 %Stef Michele MD Work Phone: [facility] Pfcmfg59-54-3495 10:20-0400Systolic blood cygyotna824 mm[Hg]Stef Michele MD Work Phone: cAC[facility] Healthcare SystemQcbfhd26-82-4481 10:40-0500Body .6 Benjamin Hannon PA-C Work Phone: [facility]02-20-2025 10:40-0500Body mass index (BMI) [Ratio]39.06 kg/q5PkhhopCece Hannon PA-C Work Phone: [facility]02-20-2025 10:40-0500Body mrstvdnfyvd30.3 [degF]Cece Hannon PA-C Work Phone: [facility]02-20-2025 10:40-0500Body zpwcde121.77 kgAndangeli Hannon PA-C Work Phone: [facility]02-20-2025 10:40-0500Diastolic blood ajouyblw01 mm[Hg]Cece Hannon PA-C Work Phone: [facility]02-20-2025 10:40-0500Heart rate 76 /minCece Hannon PA-C Work Phone: [facility]02-20-2025 10:40-2568RvY8% (BldA) [Mass fraction]96 %Cece Hannon PA-C Work Phone: [facility]02-20-2025 10:40-0500Systolic blood nefdhlab256 mm[Hg]Cece Hannon PA-C Work Phone: [facility]06-25-2024 11:17-0400Heart rate 51 /minPatriciattsy Bowling MD Work Phone: [phone] Healthcare SystemWawzik86-35-0395 11:17-0400Respiratory rate 19 /minMartine Bowling MD Work Phone: [phone] Healthcare SystemHetdwn25-39-3103 11:17-3627ByK5% (BldA) [Mass fraction]95 %Martine Bowling MD Work Phone: [phone] Cwfbia20-39-3033 11:15-0400Diastolic blood ijegedtq07 mm[Hg]Martine Bowling MD Work Phone: [phone] Culrlf45-76-8040 11:15-0400Systolic blood fgdanfkz760 mm[Hg]Martine Bowling MD Work Phone: [phone] hospitaland Rqpjbb23-87-2907 10:25-0400Body temperature 97.5 [degF]Martine Bowling MD Work Phone: [phone] Healthcare SystemMiwegn98-72-6172 13:33-0400Body ewmyfl749.2 cmPacc [facility] HospitalComment on above:patient xovxgrht30-96-4555 13:33-0400Body mass index (BMI) [Ratio]38.37 kg/[facility]2PaDo[facility] 08-09-2023 13:33-0400Body eeuqqc768.13 kgPaDoctors HospitalComment on above:patient gvdsxsea05-25-2153 13:33-0400Heart rate89 /minPaGenesis HospitalComment on above:apple pqsel40-52-2292 09:28-0400Body height 170.2 cmMartine Bowling MD Work Phone: [phone] Healthcare SystemWkuqaa70-75-6699 09:28-0400Body mass index (BMI) [Ratio]39.26 kg/u2LmyktscMartine Bowling MD Work Phone: [phone] Healthcare SystemHxjnbg43-65-5911 09:28-0400Body izmgkc287.7 kgMartine Bowling MD Work Phone: [phone] Healthcare SystemJubjgq64-65-9880 09:28-0400Diastolic blood ocacdvli71 mm[Hg]Martine Bowling MD Work Phone: [phone] Healthcare SystemMucgwq10-85-0991 09:28-0400Heart rate50 /min Martine Bowling MD Work Phone: [phone] Healthcare SystemOksrxo78-99-1144 09:28-0400Systolic blood boeirbcq178 mm[Hg]Martine Bowling MD Work Phone: [phone] Healthcare SystemKplqsu95-97-1521 09:27-0400Body .2 cmMichael Quiles DO Work Phone: [phone] Healthcare SystemVnyoii25-38-9565 09:27-0400Body mass index (BMI) [Ratio]39.26 kg/v8Hpissmr Quiles DO Work Phone: [phone] Healthcare SystemYwpnez55-64-4105 09:27-0400Body plbirq079.7 kgMichael Quiles DO Work Phone: [place] Gjxfgz71-82-0985 09:27-0400Diastolic blood rbeuypoh51 mm[Hg]Veronica Quiles DO Work Phone: [place] Ejbwtq79-76-8214 09:27-0400Heart rate50 /min Veronica Quiles DO Work Phone: [place] Xxwapw67-35-2276 09:27-0400Systolic blood mm[Hg]Veronica Quiles DO Work Phone: [place] Iixukj51-85-2046 08:50-0400Diastolic blood anwysyvp58 mm[Hg]LINDA Hannon Work Phone: [phone]55[facility]05-28-2024 08:50-0400 Heart rate57 /minLINDA Hannon Work Phone: [phone]29[facility]05-28-2024 08:50-0400 Respiratory rate18 /minLINDA Hannon Work Phone: [phone]65[facility]05-28-2024 08:50-0400 SaO2% (BldA) [Mass fraction]95 %LINDA Hannon Work Phone: [phone]05-28-2024 08:50-0400 Systolic blood ebfjkmwu706 mm[Hg]LINDA Hannon Work Phone: [phone]05-28-2024 08:06-0400 Inhaled oxygen flow rate3 L/minLINDA Hannon Work Phone: [phone] [place], [place] 9850605-28-2024 07:11-0400 Body yswocw724.18 cmPARakan Hannon Work Phone: [phone]05-28-2024 07:11-0400 Body ycnfri62.71 kgPARakan Hannon Work Phone: [phone]05-08-2024 10:48-0400 Body ehirww558.18 cmC[facility]05-08-2024 10:48-0400Body mass index (BMI) [Ratio]37.9 kg/d3OgtueqknmC[facility]05-08-2024 10:48-0400Body jpruwy908.76 kgC[facility]04-16-2024 15:03-0400Body phoqli839.1 cmMindy Edvin PA-C Work Phone: [facility]04-16-2024 15:03-0400Body temperature 97.5 [degF]Gardenia Edvin PA-C Work Phone: [facility]04-16-2024 15:03-0400Body pnizis187.8 kgMindy Edvin PA-C Work Phone: [facility]04-16-2024 15:03-0400Diastolic blood ncaggxio31 mm[Hg]Gardenia Edvin PA-C Work Phone: [facility]04-16-2024 15:03-0400Heart rate65 /min Gardenia Edvin PA-C Work Phone: [facility]04-16-2024 15:03-0400Respiratory rate 16 /minMindy Edvin PA-C Work Phone: [facility]04-16-2024 15:03-6354JrN4% (BldA) [Mass fraction]97 %Gardenia Edvin PA-C Work Phone: [facility]04-16-2024 15:03-0400Systolic blood pmekdguj726 mm[Hg]Gardenia Edvin PA-C Work Phone: [facility]12-19-2023 19:27-0500Diastolic blood ecgysjmu98 mm[Hg]PA-C Cece Hannon Work Phone: [facility]12-19-2023 19:27-0500 Heart rate66 /minPA-C Cece Hannon Work Phone: [facility]12-19-2023 19:27-0500 Respiratory rate20 /minLINDA Hannon Work Phone: [facility]12-19-2023 19:27-0500 SaO2% (BldA) [Mass fraction]98 %LINDA Hannon Work Phone: [facility]12-19-2023 19:27-0500 Systolic blood isjzudzt148 mm[Hg]LINDA Hannon Work Phone: [phone]12-19-2023 17:49-0500 Body .18 cmPKatisuka Hannon Work Phone: [phone]12-19-2023 17:49-0500 Body bulgcihxyop65.7 [degF]LINDA Hannon Work Phone: [phone]12-19-2023 17:49-0500 Body eqzqdv544 kgLINDA Hannon Work Phone: [facility]12-04-2023 14:45-0500 Body nrovar358.18 cmImad Asaad Other [email or web address] Other 12-04-2023 14:45-0500Body mass index (BMI) [Ratio] 40.33 kg/m2Imad Asaad Other [email or web address] Other 12-04-2023 14:45-0500Body twsxot200.8 kgImad Asaad Other [email or web address] Other 12-04-2023 14:45-0500Diastolic blood bjfvbvny66 mm[Hg] Imad Asaad Other [email or web address] Other 12-04-2023 14:45-0500Systolic blood vpnohbwu363 mm[Hg] Imad Asaad Other [facility] [employer] Other 09-13-2023 11:00-0400Body xdqtyj554.18 cmJunelson Torres Other [facility] [employer] Other 09-13-2023 11:00-0400Body mass index (BMI) [Ratio] 39.93 kg/f2Mzmcwonelson Torres Other [facility] [employer] Other 09-13-2023 11:00-0400Body .67 kgJunelson Torres Other [facility] [employer] Other 04-07-2023 14:32-0400Body sifkhm810.1 cmCheco Spivey MD Work Phone: [facility]04-07-2023 14:32-0400Body temperature 97.3 [degF]Checo Spivey MD Work Phone: [facility]04-07-2023 14:32-0400Body hudeyt808.47 kgCheco Spivey MD Work Phone: [facility]04-07-2023 14:32-0400Diastolic blood ujoovyhx09 mm[Hg]Checo Spivey MD Work Phone: [facility]04-07-2023 14:32-0400Heart rate62 /min Checo Spivey MD Work Phone: [facility]04-07-2023 14:32-0400Respiratory rate 16 /minCheco Spivey MD Work Phone: [facility]04-07-2023 14:32-1242KzE3% (BldA) [Mass fraction]98 %Checo Spivey MD Work Phone: [facility]04-07-2023 14:32-0400Systolic blood cqqidchw531 mm[Hg]Checo Spivey MD Work Phone: [facility]01-27-2023 12:56-0500Body akdkkm033.1 cmShiva Garcia Jr., DO Work Phone: [facility]01-27-2023 12:56-0500Body fcegxp670.66 kgDaanastasia Garcia Jr., DO Work Phone: [phone]01-27-2023 12:56-0500Diastolic blood uaccykly72 mm[Hg]Shiva Garcia Jr., DO Work Phone: [phone]01-27-2023 12:56-0500Heart rate80 /min Shiva Garcia Jr., DO Work Phone: [facility]01-27-2023 12:56-7658FkE5% (BldA) [Mass fraction]95 %Shiva Garcia Jr., DO Work Phone: [facility]01-27-2023 12:56-0500Systolic blood tcuuspoo481 mm[Hg]Shiva Garcia Jr., DO Work Phone: [facility]12-15-2022 17:14-0500Body tqovsr682.18 cmPKatiuska Hannon Work Phone: [facility]12-15-2022 17:14-0500 Body qlnywhvylay51.6 [degF]LINDA Hannon Work Phone: [facility]12-15-2022 17:14-0500 Body .95 kgLINDA Hannon Work Phone: [facility]12-15-2022 17:14-0500 Diastolic blood mm[Hg]LINDA Hannon Work Phone: [facility]12-15-2022 17:14-0500 Heart rate76 /minLINDA Hannon Work Phone: [facility]12-15-2022 17:14-0500 Respiratory rate18 /minPA-C Cece Hannon Work Phone: [facility]12-15-2022 17:14-0500 SaO2% (BldA) [Mass fraction]95 %PA-C Cece Hannon Work Phone: [facility]12-15-2022 17:14-0500 Systolic blood mm[Hg]PA-C Cece Hannon Work Phone: [facility]11-10-2022 13:57-0500 Blood Pressure LocationModanville state hospitalleydi Nassar [facility]11-10-2022 13:57-0500 Diastolic blood mm[Hg]Yanni Nassar [facility]11-10-2022 13:57-0500Heart rate68 /minWyckoff Heights Medical Centerleydi Nassar [facility]11-10-2022 13:57-7325OrB9% (BldA) [Mass fraction]96 %[facility] Clintonjuhi [facility]ar [facility]11-10-2022 13:57-0500 Systolic blood dcvenyxy977 mm[Hg]Yanni Nassar [facility]03-31-2022 11:45-0400Body sgoxhx002.18 cmDavid [employer] Other [employer] Other 03-31-2022 11:45-0400Body mass index (BMI) [Ratio] 39.93 kg/h5Fqtrx [employer] Other [email or web address] Other 03-31-2022 11:45-0400Body mhvwxy244.67 kgDavid [employer] Other [email or web address] Other 03-31-2022 11:45-0400Diastolic blood yezbhzwz89 mm[Hg] Shiva Garcia Other [employer] Other 03-31-2022 11:45-0400Systolic blood cwevlesk625 mm[Hg] Shiva Garcia Other [employer] Other 03-31-2022 09:21-0400Body cccqut922.6 cmMindy Edvin PA-C Work Phone: [facility]03-31-2022 09:21-0400Body temperature 98.1 [degF]Gardenia Edvin PA-C Work Phone: [facility]03-31-2022 09:21-0400Body comiis504.76 kgMindy Edvin PA-C Work Phone: [facility]03-31-2022 09:21-0400Diastolic blood rzktgkno76 mm[Hg]Gardenia Edvin PA-C Work Phone: [facility]03-31-2022 09:21-0400Heart rate66 /min Gardenia Edvin PA-C Work Phone: [facility]03-31-2022 09:21-0400Respiratory rate 16 /minMindy Edvin PA-C Work Phone: [facility]03-31-2022 09:21-4632NiY7% (BldA) [Mass fraction]96 %Gardenia Edvin PA-C Work Phone: [facility]03-31-2022 09:21-0400Systolic blood ijzkgaxn106 mm[Hg]Gardenia Edvin PA-C Work Phone: [facility]12-09-2021 12:00-0500Body .18 cmDaanastasia Radha Other [employer] Other 12-09-2021 12:00-0500Body mass index (BMI) [Ratio] 38.37 kg/o9Cjmsyanastasia Garcia Other [email or web address] Other 12-09-2021 12:00-0500Body tjagpl349.13 kgDaanastasia Garcia Other [email or web address] Other Encounters Encounter DateEncounter TypeCare ProviderFacilityStart: 01-01-2025 End: 67-29-0928jmsizdrnoaYTRRJGHocking Valley Community Hospitaltart: 12-27-2024 End: 66-77-3985Fcfojvgnq encounterEmfederico SappMed[facility]/CATHLEEN Burnstart: 12-23-2024 End: 46-55-2320Ykioyqzqn encounterEmfederico Hamm [facility]/CATHLEEN Burnstart: 12-23-2024 End: 74-18-5189Ayspam outpatient visit 25 minutesAndangeli Hnanon PA-C Work Phone: [facility]/Haider Adamson MD Comment on above:Type 2 diabetes mellitus with hyperglycemia, without long-term current use of insulin ([facility]) (Primary Dx); FERNY (generalized anxiety disorder); Vitamin B 12 deficiency; Vitamin D insufficiency; Low HDL (under 40); Mixed hyperlipidemia; Iron deficiency anemia, unspecified iron deficiency anemia type; Ascending aortic aneurysm, unspecified whether ruptured; Multiple thyroid nodules; Osteoarthritis of spine with radiculopathy, cervical region; Seizure disorder ([facility]); Neuropathy; SVT (supraventricular tachycardia); Hypercoagulable state; Gastroparesis due to DM ([facility]); Factor V Leiden; Vascular disease; Viral URI with cough; Mild intermittent reactive airway disease without complication; Screening mammogram for breast cancer; Encounter for screening for osteoporosisStart: 12-23-2024 End: 40-82-6648dnzvtpekmiRHSXJEKresge Eye Institute Ambulatory PPGStart: 11-12-2024 End: 92-69-0373hmmrfkmzmeTPPNXGEOhio Valley Hospital CenterStart: 07-66-8631Vnuvojpwt department patient visitVeronica Geller Facility:[facility] Hospitaltart: 70-69-6987Nbsppnlbg department patient visit Cece Roxy Hannon PACFacility:[facility] Hospitaltart: 09-25-2024 End: 46-23-1361pkipagojeoYnfmfv N Hayes PACFacility:[facility] Hospitaltart: 09-10-2024 End: 63-93-5247Bsktxb outpatient visit 25 minutesCece Hannon PA-C Work Phone: [facility]/Haider Adamson MD Comment on above:Type 2 diabetes mellitus with hyperglycemia, without long-term current use of insulin ([facility]) (Primary Dx); Cyst of right kidney; Mixed hyperlipidemia; BMI 40.0-44.9, adult ([facility]); GlucosuriaStart: 09-10-2024 End: 26-37-9814NymdxdBmtjut N Hayes PA-C Work Phone: [facility]/Haider Adamson MD Comment on above:Mixed hyperlipidemiaStart: 09-05-2024 End: 44-46-4442bkvejvisppUazbpd N Hayes PACFacility:[facility] Hospitaltart: 08-29-2024 End: 40-22-0475msmeixxrxsPksjxj N Hayes PACFacility:[facility] Hospitaltart: 08-27-2024 End: 74-56-0394Wpwlsm outpatient visit 15 minutesAndangeli Hannon PA-C Work Phone: [facility]/Haider Adamson MD Comment on above:Burning with urination (Primary Dx); Dysuria; Proteinuria, unspecified type; Type 2 diabetes mellitus without complication, without long-term current use of insulin ([facility])Start: 08-27-2024 End: 31-32-7488mmcnqtksjwXWEOKB N HAYTrinity [facility] Ambulatory PPGStart: 07-26-2024 End: 01-17-4592Gljcfypvx encounterPatricia Garcia [facility]ITALProMed[facility] Phys[facility]/Haider AdamsonMDComment on above:Appointment dueStart: 07-01-2024 End: 40-28-4946Ngrtwrcmb encounterAngelitabyron Radha GOULDProMedica Physicians Internal Medicine/Haider AdamsonMDComment on above:Multiple NeedsStart: 07-01-2024 ambulatoryMATTHEW T ALLEMANGFacility:[facility] HospitalStart: 07-01-2024 End: 77-41-7683Urmhurlqsf hospital visit by physicianM[facility] Work Phone: [facility] Radiology MolecularComment on above: Nausea [R11.0]Start: 06-28-2024 End: 96-75-7168Odnujwxpv encounterGeorge Balog [facility] Radiology MolecularComment on above:Radiology NMStart: 06-27-2024 End: 35-80-9094CpglldOvisti N Hayes PA-C Work Phone: [facility]/Haider Adamson MD Start: 06-24-2024 End: 42-96-6296asyplckhpkTXHG NONEFacility:FTMCStart: 06-24-2024 End: 24-60-7168Qeebvqf encounter procedureYanni Nassar [facility] Start: 20-70-8770Fxtaauaei department patient visit Luis Eduardo RiveroFacility:[facility] Hospitaltart: 06-10-2024 End: 52-07-8102Kikqzh outpatient visit 15 minutesAdauniqueh Leny COLÓN Work Phone: Hematology/OncologyComment on above:Hypercoagulable state (HCC) (Primary Dx)Start: 06-10-2024 End: 04-86-7453mimnlnqiblDHPVCT VENNEPUREDDYFacility:[facility] Start: 05-23-2024 End: 19-19-3267wljxngmrsdSN Yanni NassarFacility:FTMCStart: 05-23-2024 End: 98-95-8051Qnwcvya encounter procedureYanni Nassar [facility] Start: 04-29-2024 End: 51-16-0854Dezuhjsdv encounterMaamerica Bowling MD Work Phone: GastroenterologyComment on above:OrdersStart: 04-22-2024 End: 90-72-4155ZykrlnGnness N Hayes PA-C Work Phone: [facility]/Haider Adamson MD Start: 04-18-2024 End: 49-61-8621gfwdwtjftuVTWANM N HAYESProMedica Chicago HospitalStart: 04-18-2024 End: 82-71-7713Twzeaf outpatient visit 25 minutesAndangeli Hannon PA-C Work Phone: [facility]/Haider Adamson MD Comment on above:Type 2 diabetes mellitus without complication, without long- term current use of insulin ([facility]) (Primary Dx); FERNY (generalized anxiety disorder); Acute non-recurrent maxillary sinusitis; Hereditary coagulation factor deficiency ([facility]); SVT (supraventricular tachycardia) ([facility]); Gastroparesis due to DM ([facility]) ; Emotional instability ([facility]); 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rder ([facility]); Type 2 diabetes mellitus with hyperglycemia, without long-term current use of insulin ([facility]); Aneurysm of ascending aorta without rupture ([facility] Seizure disorder ([facility]); Hypercoagulable state ([facility]); BMI 40.0-44.9, adult ([facility])Start: 04-18-2024 End: 09-92-0628jwotwhfgdaSUIBCX N HAYESProMedica [facility] PPGStart: 04-04-2024 End: 84-20-4448swgvnbejyvVAAL NARRAFacility:[facility] HospitalStart: 03-27-2024 End: 31-20-2196EggtvwTfhftm N Hayes PA-C Work Phone: [facility]/Haider Adamson MD Comment on above:FERNY (generalized anxiety disorder)Start: 03-11-2024 End: 69-18-9182NyujauEbwzrj N Hayes PA-C Work Phone: [facility]/Haider Adamson MD Start: 85-21-7884Xturhgugu department patient visitDarin Murphy Facility:[facility] HospitalStart: 02-28-2024 End: 75-29-7735OtqctaSbrfvc N Hayes PA-C Work Phone: [facility]/Haider Adamson MD Comment on above:FERNY (generalized anxiety disorder)Start: 02-26-2024 End: 40-90-1380Hddwyjxqc encounterAndangeli Hannon PA-C Work Phone: [facility]/Haider Adamson MD Start: 31-89-6423Qrdggkmwv department patient visitKevin Daltonhca [facility] Facility:[facility] Hospitaltart: 02-01-2024 End: 07-55-1362Oldyfgiau encounterThe Rehabilitation Hospital Of Tinton Fallszohreh Hahn (RLake[facility] Radiology MolecularComment on above:Radiology NMStart: 01-25-2024 End: 35-41-3274Akuqyjjbw department patient visitRAVI NARRAFacility:[facility] HospitalStart: 01-15-2024 End: 29-15-7923obmawzxtpbDtdaolyekC[facility] Work Phone: Start: 01-15-2024 End: 66-38-7114Iobcnfb encounter procedureDuke [facility] Work Phone: Start: 01-04-2024 End: 41-84-5484rohepfassjUWSTKV [facility] Ambulatory PPGStart: 12-30-2023 End: 04-35-6287Lywsjgfdt department patient visitRAVI NARRAFacility:[facility] HospitalStart: 12-19-2023 End: 67-81-5649kokiutugwgLCUK AFREENProGeorgetown Behavioral Hospitalca [facility] HospitalStart: 11-06-2023 End: 36-46-0257Dxnmteupw encounterMatthew Jennifer RT(R)[facility] Radiology MolecularStart: 10-18-2023 End: 95-72-3224Jxnrynuhp to same day surgery Madelin Bowling MD Work Phone: General SurgeryComment on above:Nausea (Primary Dx); Gastroparesis due to DM (HCC) (HCC)Start: 10-18-2023 End: 22-54-5423Dxgocratyssi consultation with Radha Bowling MD Work Phone: General SurgeryStart: 10-18-2023 End: 75-11-0061pcxrdqrekpGEZPWQX ALLEMANGFacility:[facility] Start: 52-51-9684lauzgyopgeUybssls McKitrick [facility] Work Phone: [facility] HB-3Comment on above:EliquisRefill RequestStart: 47-73-4895H-mail encounter from Valerie Vang [facility] Work Phone: [facility] HB-3Start: 51-36-0562leqfzlyuwnjanina GUAMANacility:[facility] Sout[facility]art: 08-22-2023 End: 10-06-4498Xbzqprgtnt hospital visit by physicianMartine Bowling MD Work Phone: s[facility] CenterComment on above:Gastroparesis due to DM (HCC) (HCC) [E11.43, K31.84]Start: 08-18-2023 Telephone encounterMartine Bowling MD Work Phone: General SurgeryComment on above:Vegetable Canner - Other (preprocedue call)Start: 71-64-8128mqbrqevihsDdpwubkMillie Bowling MD Work Phone: [facility] CenterStart: 86-27-8269Aiksnkvsg encounterCasey Mcadams PA-C Work Phone: Pre AnesthesiaComment on above:Preparations For SurgeryStart: 11-90-6419jdrcyrkbomKvdbbqh S Quiles DO Work Phone: GastroenterologyComment on above:EGG RESULTSStart: 33-90-7978Hjjzomy encounter procedureMichael S Quiles DO Work Phone: GastroenterologyStart: 24-91-8239Uvookumlw encounter Checo Spivey MD Work Phone: Pre AnesthesiaComment on above:Preparations For SurgeryStart: 52-45-9983Eqrrsqnrt for other preprocedural examinationJUDITH MARIA PAR[facility] HEALTHN [facility] MiamisburgStart: 08-09-2023 End: 32-67-1133WHNZvpt Sheffield VirtualPre AnesthesiaComment on above:Preop examination (Primary Dx); Neck pain; Ascending aorta dilation ([facility]); Gastroesophageal reflux disease, unspecified whether esophagitis present; Gastroparesis due to DM (HCC) ([facility]); Hereditary coagulation factor deficiency ([facility]); Hyperlipidemia, unspecified hyperlipidemia type; Obesity, Class II, BMI 35-39.9; SOB (shortness of breath); PVD (peripheral vascular disease) ([facility]); History of DVT (deep vein thrombosis); Diabetes mellitus type 2 ([facility]); Anxiety; Anticoagulated; Seizure disorder ([facility]); PTSD (post-traumatic stress disorder)Start: 08-09-2023 End: 12-62-5679Lnyzaticzazme examination donePaDoctors Hospital Work Phone: Start: 08-02-2023 End: 03-04-3855scereneunhJUOQVTC S CLINEFacility:[facility], Inctart: 08-02-2023 End: 09-05-1298zqypprnvniPSXOKQT S CLINEFacility:[facility] Southtart: 08-02-2023 End: 04-81-3700Fhsdgfs encounter procedureMichael S Quiles DO Work Phone: GastroenterologyComment on above:Gastroparesis (Primary Dx); Irritable bowel syndrome with both constipation and diarrheaGastroparesis due to DM (HCC) (HCC) (Primary Dx)Gastroparesis (Primary Dx)Gastroparesis (Primary Dx); Type 2 diabetes mellitus without complication, without long-term current use of insulin (HCC)Start: 46-20-6684Auohcenqd encounterMichael Candy Quiles DO Work Phone: GastroenterologyComment on above:Care Coordination (Gastroparesis clinic: new patient call; chart review)Start: 64-92-8408Qdk- patient / Pwc-cbqngGE-LRakan Hannon Work Phone: [facility] Work Phone: Start: 07-25-2023 End: 49-87-0244Rnltcinmc to same day surgery [facility] Cece Hannon Work Phone: [facility]-Digestive Health Work Phone: Start: 07-25-2023 End: 21-06-9844aamjwfjcpqND-C Cece Hannon Work Phone: [facility] Work Phone: Start: 07-05-2023 End: 98-55-7810spidskyecmBdlblmtipNationwide Children's Hospital Work Phone: Start: 07-05-2023 End: 04-36-9480Abexyhh encounter procedureDuke [facility] Hospital [facility] Work Phone: Start: 06-13-2023 End: 69-83-6147Bpcjdf outpatient visit 15 minutesGardenia Gupta PA-C Work Phone: Hematology/OncologyComment on above:Hypercoagulable state (HCC) (Primary Dx); Hereditary coagulation factor deficiency (HCC); 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rder (HCC); Obesity, Class III, BMI 40-49.9 (morbid obesity) (HCC); Gastroparesis due to DM (HCC) (HCC)Start: 06-13-2023 End: 32-75-2376qmarsxxhkeFQWHS M MUSSERFacility:[facility], Inctart: 05-18-2023 End: 01-54-9795Irkdlkoixn hospital visit by physicianEleuterio [facility] Work Phone: [facility] MolecularComment on above: Gastroparesis [K31.84]Start: 89-01-9091Bofvfdtbn encounterRobjonathon Tong RT(R) [facility] Radiology MolecularComment on above:Radiology NM (Appointment reminder.)Start: 02-14-2023 End: 79-74-4618Srmroybyt department patient visitPA-C Cece Hannon Work Phone: [facility]-Emergency Room Work Phone: Start: 01-30-2023 End: 60-26-4519obaixkqswuCctq [employer] [place] Other [email or web address] Other Start: 96-99-9639Mqnubsg encounter procedureImajanes MACIEL GastroenterologyStart: 11-09-2022 End: 86-86-9092xkytmjxpxhRsfuzc Kelley Other [email or web address] Other Start: 05-13-2195Amuxah outpatient new 30 minutes Tom Mon OrthopedicsStart: 06-03-2022 End: 63-88-2987xfyjqivmiwXlrzg Karamlou MD Work Phone: Hematology/OncologyComment on above:Hypercoagulable state (HCC) (Primary Dx)Start: 06-03-2022 End: 01-19-1936Bfxugfv encounter procedureCheco Spivey MD Work Phone: SANDUSKYStart: 41-08-0287HaqkyxQzaxq M Musser PA-C Work Phone: Hematology/OncologyComment on above:Refill Request Start: 03-25-2022 End: 82-99-0604Fsfwbrc encounter procedureDaanastasia Garcia DO Work Phone: GastgroenterologyComment on above:Gastroparesis due to DM (HCC) (Primary Dx); Generalized abdominal pain; Gastroesophageal reflux disease with esophagitis without hemorrhage; Irritable bowel syndrome with both constipation and diarrheaStart: 02-10-2022 End: 43-85-5586Vndflfsjl department patient visitILNDA Hannon Work Phone: [facility]-Emergency RoomStart: 01-06-2022 End: 48-26-7223Qdmvuxs encounter procedureMorachidleydi Nassar [facility] Start: 12-16-2021 End: 96-32-0703orslspzyniKR-Saeid Hannon Work Phone: [facility] Work Phone: Start: 12-16-2021 End: 41-01-9502Srdufag encounter procedureLINDA Hannon Work Phone: [facility]-Ultrasound Main [place] Start: 11-05-2021 End: 16-61-7502Oaf-admission assessmentMoannamarie Camila Nassar [facility] Start: 09-28-2021 End: 96-65-1437gunaxdqegbYxqol Hy[place] Other [email or web address] Other Start: 04-46-0130Uulveoijx encounterDavid HykesFPG GastroenterologyStart: 06-23-2021 End: 65-05-9165lautzvkefuBqphx Hykes Other [employer] Other Start: 25-38-7599Cvbpqyzof encounterDavid HykesFPG GastroenterologyStart: 06-21-2021 End: 27-10-4157zpoetwevmbJopvn Hykes Other [email or web address] Other Start: 17-14-8809Lpxymhege encounterDavid HykesFPG GastroenterologyStart: 06-15-2021 End: 06-31-3159fawbvzpeaxIyiya Hykes Other [employer] Other Start: 61-99-0638Ojzqlmtgs encounterDavid HykesFPG GastroenterologyStart: 06-03-2021 End: 06-95-3819qlilebqiugMggyc Hykes Other [employer] Other Start: 46-98-9636Cxhjeebdn encounterDavid HykesFPG GastroenterologyStart: 68-71-6173Idefvf outpatient visit 25 minutesDavijanes Hykes RAHEEM GastroenterologyStart: 05-27-2021 End: 55-33-6643pvoodesbymJwvum M Musser PA-C Work Phone: Hematology/OncologyComment on above:Hypercoagulable state (HCC) (Primary Dx); Vascular diseaseStart: 05-27-2021 End: 19-08-4485Fnqjzvr encounter procedureGardenia Gupta PA-C Work Phone: SANDUSKYStart: 02-04-2021 End: 30-71-1132rccyozitvgNdrxi Hykes Other [email or web address] Other Start: 87-51-7331Fictup outpatient visit 25 minutes Shiva Lowe GastroenterologyStart: 01-18-2021(Procedure) ShortThomas Felter [facility] OutPtStart: 01-18-2021 End: 69-61-7624paqjkfxidyQzsywi Felter Other [employer] Other Start: 01-06-2021 End: 18-95-6451bgkxukygavZafpyw Felter Other [employer] Other Start: 24-50-6896Ylrlka outpatient visit 25 minutes Adan Padron [facility] [place] CreekStart: 09-18-2020 End: 66-62-9582hksmrvrdsfXOYJUURU SELFFacility:UTMCStart: 09-02-2020 End: 98-63-8479fcixqpvcdeRNJXEEK TUCKERFacility:H1 Procedures DateProcedureProcedure DetailPerforming ClinicianStart: 70-54-5604YJZY XPERT, XPRESS COV-2, FLU (CEPHEID)Cece Hannon PA-C Work Phone: Start: 91-68-8553Srmmf depression screening assessment Cece Hannon PA-C Work Phone: Start: 46-42-3777Mqktt dip stick/tablet rgnt non-auto w/o micrscpAndrea Roxy Hannon PA-C Work Phone: Start: 32-98-7440Nsfkd dip stick/tablet rgnt non-auto w/o micrscpAndrea Roxy Hannon PA-C Work Phone: Start: 79-76-5153Xdenyhj emptying imaging studyMartine Bowling MD Work Phone: Start: 99-76-6849Aeirsv-up visitFollow-upANDANGELI RIOStart: 44-73-3771Qgknvsnfywch [Mass/volume] in Urine by Test stripCece Hannon PA-C Work Phone: Start: 97-17-3446Buawd depression screening assessment Cece Hannon PA-C Work Phone: Start: 57-65-7914Tpcx bld gluc mntr dev cleared fda spec home useMartine Bowling MD Work Phone: start: 96-08-6255Dfopmoxdvae rig transoral hypopharynx crv esophMartine Bowling MD Work Phone: start: 94-31-4843Sgwc bld gluc mntr dev cleared fda spec home useMartine Bowling MD Work Phone: Start: 68-33-3752Fmkhrxdpkxbydt destruction of peripheral nervePA-C Cece Parvez Work Phone: Start: 76-57-9566Dtvpxvcsmaza [Mass/volume] in Urine by Test stripAndangeli Hannon PA-C Work Phone: Start: 43-33-3891Pqiff chest X-rayPA-C Cece Hannon Work Phone: Start: 96-80-3948Wpekzo scan of lower limb veinsPA-C Cece Hannon Work Phone: Start: 37-99-7541VkqulfwksvtUbrnra Hayes PA-C Work Phone: Start: 80-41-3184Fwtzh depression screening assessment Gardenia Edvin MCKEON Work Phone: Start: 99-27-0312WmptxyqfwxgWzgrx Edvin MCKEON Work Phone: [employer] 1Mohamed Cesario Comment on above:LStents 2Mohamed [employer] Comment on above:L groin for DVT Plan of Treatment DateCare ActivityDetailAuthorStart: 41-08-1740Oyhkr BMI ScreeningAdult BMI ScreeningAdams County Regional Medical Center SystemStart: 74-43-7589Daijuscasy ScreeningDepression ScreeningOhio State East Hospital Health SystemStart: 11-53-8810Akoezfm ScreeningTobacco ScreeningBlanchard Valley Health Systemca Health SystemStart: 47-67-4239Lspfgq Use: Cardiovascular Statin Use: CardiovascularBlanchard Valley Health Systemca Health SystemStart: 52-66-0186Uwyxiv Use: DiabeticStatin Use: DiabeticBlanchard Valley Health Systemca Health SystemStart: 51-51-6715Wthgf BMI ScreeningAdult BMI ScreeningBlanchard Valley Health Systemca Health SystemStart: 74-70-2506Jpdehsb ScreeningTobacco ScreeningBlanchard Valley Health Systemca Health SystemStart: 93-38-0134Zbqct BMI ScreeningAdult BMI ScreeningProGeorgetown Behavioral Hospitalca Health SystemStart: 91-24-0935Wtddjgf ScreeningTobacco ScreeningProMedica Health SystemStart: 06-10-2025 End: 10-76-9353GWD W Auto Differential panel - BloodCOMPLETE BLOOD COUNT AND DIFFERENTIAL Lab Routine Hypercoagulable state (HCC) Expected: 06/10/2025 ( Approximate), Expires: 09/09/2025[facility] Work Phone: comment on above:Expected: 06/10/2025 (Approximate), Expires: 09/09/2025Start: 06-10-2025 End: 85-80-4248Erwlbimyeutmw metabolic 2000 panel - Serum or PlasmaCOMPREHENSIVE METABOLIC PANEL Lab Routine Hypercoagulable state (HCC) Expected: 06/10/2025 (Approximate), Expires: 09/09/2025leveland ClinicComment on above:Expected: 06/10/2025 (Approximate), Expires: 09/09/2025Start: 06-10-2025 End: 92-76-7986Czrrlp D-dimer FEU [Mass/volume] in Platelet poor plasmaD-DIMER Lab Routine Hypercoagulable state (HCC) Expected: 06/10/2025 (Approximate), Expires: 09/09/2025leveland ClinicComment on above:Expected: 06/10/2025 (Approximate), Expires: 09/09/2025Start: 05-96-2657Ymfes BMI ScreeningAdult BMI ScreeningProMagruder Hospital SystemStart: 70-00-4519Mrbedkuis B screeningUrine Albumin:Creatinine RatioRalls ClinicStart: 81-39-8966Sqzonlk Screening Tobacco ScreeningProGeorgetown Behavioral Hospitalca Health SystemStart: 10-30-2059Hsmse screening for proteinUrine MicroalbuminProMagruder Hospital SystemStart: 01-14-2025 End: 49-33-3852Dytruxm encounter twfbimxfc04/18/2025 10:30 AM EST Office Visit [facility]/Haider Adamson MD [address] [place] [phone] Cece Hannon, PAMakaylaC [address] [place] [address] [facility]/CATHLEEN Burnstart: 34-18-6996Ziucr BMI ScreeningAdult BMI ScreeningProMagruder Hospital SystemStart: 22-12-4336Uqdvtmd ScreeningTobacco ScreeningProMagruder Hospital SystemStart: 96-46-8071Anmhxjcnss ScreeningDepression ScreeningProMagruder Hospital SystemStart: 12-23-2024 End: 77-74-0485FQY Breast - bilateral screeningMammography screening bilateral with CAD Imaging Routine Screening mammogram for breast cancer Expected: 12/23/2024, Expires: 12/23/2025[facility] Work Phone: Comment on above:Expected: 12/23/2024, Expires: 12/23/2025Start: 12-23-2024 End: 14-41-6666OTC Skeletal system Views for bone densityDexa scan central skeletal Imaging Routine Encounter for screening for osteoporosis Expected: 12/23/2024, Expires: 12/23/2025ProMagruder Hospital SystemComment on above:Expected: 12/23/2024, Expires: 12/23/2025Start: 61-64-4086Mqrmz BMI Follow Up PlanAdult BMI Follow Up PlanAdams County Regional Medical Center SystemStart: 12-11-2024 End: 78-84-1645Ckmhjod encounter ivdbvxaii00/15/2025 9:45 AM EDT Office Visit [facility]/Haider Adamson MD [address] [phone] Haider Adamson MD [address] [address] [facility]/CATHLEEN Burnstart: 39-95-9880KBXEP-19 Vaccine ( season)COVID-19 Vaccine ( season)[facility] SystemStart: 13-79-6661Kphtjxfds vaccinationInfluenza VaccineAdams County Regional Medical Center SystemStart: 19-24-9144Amhkwnqhwh A1c vjwjvcjclvpFhA7PJuxufjwbo ClinicStart: 09-10-2024 End: 85-22-9728Ffshyqk encounter wnaocptgv91/15/2025 11:00 AM EDT Office Visit [facility]/Haider Adamson MD [address] [place] [address] Cece Hannon PA-C [address] [place], [place] [id number] [facility]/CATHLEEN Burnstart: 08-27-2024 End: 25-08-0412DI RetroperitoneumUltrasound retroperitoneal complete Imaging Routine Burning with urination Dysuria Proteinuria, unspecified type Expected: 08/27/2024, Expires: 08/27/2025ProMagruder Hospital SystemComment on above:Expected: 08/27/2024, Expires: 08/27/2025Start: 07-01-2024 End: 50-89-4593Noumnuk encounter xaxrthayt51/05/2025 8:00 AM EDT Appointment [facility] Molecular [address] [place] [address] Weight 245 / Order in EPIC / DX: Nausea [R11.0] Scheduled w/ Patient...[facility] Radiology MolecularComment on above:Weight 245 / Order in EPIC / DX: Nausea [R11.0] Scheduled w/ Patient...Start: 89-94-9155Vqiqbfpka B screeningUrine Albumin:Creatinine RatioLicking Memorial Hospitaltart: 17-79-5188Znogg screening for proteinUrine MicroalbuminProMagruder Hospital SystemStart: 06-12-2024 End: 18-97-5190RMQ W Auto Differential panel - BloodCOMPLETE BLOOD COUNT AND DIFFERENTIAL Lab Routine Hypercoagulable state (HCC) Expected: 06/12/2024 ( Approximate), Expires: 09/11/2024[facility] Work Phone: Comment on above:Expected: 06/12/2024 (Approximate), Expires: 09/11/2024Start: 06-12-2024 End: 87-23-4476Esaxfhrognyge metabolic 2000 panel - Serum or PlasmaCOMPREHENSIVE METABOLIC PANEL Lab Routine Hypercoagulable state (HCC) Expected: 06/12/2024 (Approximate), Expires: 09/11/2024[facility] Work Phone: Comment on above:Expected: 06/12/2024 (Approximate), Expires: 09/11/2024Start: 06-11-2024 End: 07-69-0550Ieqtra-up pguirowch23/15/2025 10:45 AM EDT Visit (SP) Office Hematology/Oncology [address] [address] Checo Spivey MD [address] [facility] [place] [address] 1 year follow upHematology/OncologyComment on above:1 year follow upStart: 06-11-2024 End: 86-96-3409Eumehzq encounter lfmojkphm48/15/2025 10:30 AM EDT Office Visit [facility] [address] [place] [address] [place] [address] 1 year follow upNoGrant Memorial Hospital LaboratoryComment on above:1 year follow upStart: 06-10-2024 End: 69-36-7161Wdgxje-up qnzueeybv86/14/2025 10:30 AM EDT Visit (SP) Office Hematology/Oncology [address] [address] Stef Michele MD [address] [place] [address] RODRICK KAPIL-1 Year Follow Up LabsHematology/Oncology Comment on above:RODRICK KAPIL-1 Year Follow Up LabsStart: 06-10-2024 End: 73-57-7145Fthtlhw encounter ekxpisugn24/14/2025 10:15 AM EDT Office Visit [facility] [address] [place] [address] RODRICK KAPIL-1 Year Follow Up LabsWomen And Children'S Hospital LaboratoryComment on above:RODRICK KAPIL-1 Year Follow Up LabsStart: 05-14-2024 End: 77-04-2490Izqnuyd encounter efegsrmxk64/18/2025 9:30 AM EDT [facility] Visit [facility]/Haider Adamson MD [address] [place] [phone] Cece Hannon PA-C [address] [place] [address] [facility]/Haider Adamson,MDStart: 04-18-2024 End: 74-39-2073Kuwlram encounter nmrbasqdz20/20/2025 10:00 AM EST Office Visit [facility]/Haider Adamson MD [address] [place] [phone] Cece Hannon PA-C [address] [place] [address] [facility]/Haider Adamson,MDStart: 03-19-2024 End: 03-29-9686Irhftuv encounter iywvcyrts12/21/2025 9:30 AM EST Office Visit [facility]/Haider Adamson MD [address] [place] [phone] Cece Hannon PAMakaylaC [address] [place] [address] [facility]/Haider Adamson,MDStart: 03-04-2024 End: 64-04-0655Zlxrxgo encounter neusvyref20/06/2025 9:30 AM EST Office Visit [facility]/Haider Adamson MD [address] [place] [phone] Cece Hannon PA-C [address] [place] [address] [facility]/Haider AdamsonMDStart: 02-02-2024 End: 49-23-1909Wyavjst encounter nipszwyep06/06/2024 8:00 AM EST Appointment [facility] Molecular [address] [place] [address] Weight 250 / Patient is Diabetic / Order in EPIC // DX: Nausea [R11.0][facility] Radiology MolecularComment on above:Weight 250 / Patient is Diabetic / Order in EPIC // DX: Nausea [R11.0]Start: 27-12-7698Xquhpznypg A1c dtlqnlzhpqyHoL1EEqduaxsih ClinicStart: 11-07-2023 End: 38-89-5588Cynqufu encounter zwleamtho72/10/2024 8:00 AM EDT Appointment [facility] [address] [place] [address] Weight 220 / Patient is Diabetic / order in EPIC // DX: Nausea [R11.0] scheduled w/ patient...[facility] Radiology MolecularComment on above:Weight 220 / Patient is Diabetic / order in EPIC // DX: Nausea [R11.0] scheduled w/ patient...Start: 56-24-0465Lxots-19 Vaccine ( season) Covid-19 Vaccine ( season)[facility] Hospitaltart: 65-09-3815Ubbmd-19 Vaccine ( season)Covid-19 Vaccine ( season)[facility] Hospitaltart: 04-96-9350LPQBF-19 Vaccine ( season)COVID-19 Vaccine ( season)[facility] HospitaluBeamNorthland Medical Center SystemStart: 37-29-6019Yebaqqcgw vaccination Influenza Vaccine (#1)[facility] Hospitaltart: 10-18-2023 End: 44-09-7544Ilfufcfhn to same day surgery jgbxjn3010/18/2023 2:40 PM EDT [facility] General Surgery [facility] [address] [place] [address] Martine Bowling MD [facility] [address] [place], [place] Post op GPOEMGeneral SurgeryComment on above:Post op GPOEMStart: 08-22-2023 End: 78-03-8922Kbwxige encounter abcunohlu59/25/2024 9:30 AM EDT Appointment [facility] [place] [address] Martine Bowling MD [address] [place] [address] Gastroparesis due to DM (HCC)[facility] Comment on above:Gastroparesis due to DM (HCC)Start: 08-02-2023 End: 66-56-0009KFJKZYTELUYYV REC BINDING ABCleveland ClinicComment on above: Expected: 08/02/2023, Expires: 11/01/2023Start: 08-02-2023 End: 26-04-4326SRQFN ACIDS, PLASMA W/ CONSULTATIONRalls ClinicComment on above:Expected: 08/02/2023, Expires: 11/01/2023Start: 08-02-2023 End: 68-09-1039HNVFPFWGK FREE AND TOTAL, PLASMACleavita health system bu[facility]rus hospital ClinicComment on above: Expected: 08/02/2023, Expires: 11/01/2023Start: 08-02-2023 End: 11-56-9518OKJRJEHS PANEL 13, SERUMCleavita health system bucyrus hospital ClinicComment on above: Expected: 08/02/2023, Expires: 11/01/2023Start: 08-02-2023 End: 65-89-5179WVRZLQXZ FRACTION BLCleavita health system bucyrus hospital ClinicComment on above:Expected: 08/02/2023, Expires: 11/01/2023Start: 08-02-2023 End: 39-76-0422Decqwdcmn decarboxylase 65 Ab [Units/volume] in SerumCleavita health system bucyrus hospital ClinicComment on above:Expected: 08/02/2023, Expires: 11/01/2023Start: 08-02-2023 End: 88-26-4719JQLGGAP ACIDS UR, QUANT W/CONSULTATIONCleavita health system bu[facility] hospital ClinicComment on above:Expected: 08/02/2023, Expires: 11/01/2023Start: 08-02-2023 End: 44-32-9110EGBYULWQ+LACTATE BLDetwiler Memorial Hospital Work Phone: comment on above:Expected: 08/02/2023, Expires: 11/01/2023Start: 08-02-2023 End: 16-17-1917EFEPSYX GATED CA IGGKindred Hospital DaytonComment on above:Expected: 08/02/2023, Expires: 11/01/2023Start: 08-02-2023 End: 09-79-7983Eoeudex-gated potassium channel Ab [Moles/volume] in Serum [facility]red Hospital DaytonComment on above:Expected: 08/02/2023, Expires: 11/01/2023Start: 08-02-2023 End: 27-36-7414Gofumkm encounter procedureGastroenterologyComment on above:egg new gp consultStart: 10-10-3788Ufjbpaza foot examinationDiabetic Foot Exam [facility] HospitalThe Librarytart: 77-84-9263Imgcvixdl B screeningUrine Albumin:Creatinine RatioLicking Memorial Hospitaltart: 52-35-0932WyluhvjxxMercy Health St[address] [facility]stown Hospitaltart: 52-73-6069Yvqvlkouwx A1c wzfvmqsdgmlXcM1MNimmjzawd Clinic Start: 06-04-2023 End: 74-12-7560BHQ W Auto Differential panel - BloodCBC + DIFF Lab Routine Hypercoagulable state (HCC) Expected: 06/04/2023 (Approximate), Expires: [facility] Work Phone: Comment on above:Expected: 06/04/2023 (Approximate), Expires: 08/04/2023Start: 06-04-2023 End: 78-81-9201Bevzydmyqiglp metabolic 2000 panel - Serum or PlasmaCOMP METABOLIC PANEL Lab Routine Hypercoagulable state (HCC) Expected: 06/04/2023 (Approximate), Expires: 08/04/2023[facility] Work Phone: Comment on above:Expected: 06/04/2023 (Approximate), Expires: 08/04/2023Start: 85-62-5760Dnotzcllemrgsz of varicella zoster vaccine Zoster (Shingles) Vaccine (2 of 2)[facility] / NHRMCtart: 03-28-2023 Shingrix Vaccine (2 of 2)Shingrix Vaccine (2 of 2)[facility] Hospitaltart: 73-50-6206Jvrygwhmeh AssessmentDepression AssessmentLicking Memorial Hospitaltart: 48-73-0784Cpnex-19 Vaccine (2022- season)Covid-19 Vaccine ( season)[facility] Hospitaltart: 14-93-2069Htnpfuxgdo A1c/Hemoglobin.total in Blood RTD4FKuovcaldtLicking Memorial Hospitaltart: 57-96-3734Zkbmwyfzr for malignant neoplasm of breast MammogramNovant Health / NHRMCtart: 03-25-2022 End: 67-48-5649VGHSPAFJYV BLDCREATININE BLD Lab Routine Generalized abdominal pain Expected: 03/25/2022, Expires: 05/25/2022[facility] Work Phone: Comment on above:Expected: 03/25/2022, Expires: 05/25/2022Start: 58-89-0558FYHYCJGXMZ ASSESSMENTDEPRESSION ASSESSMENTLicking Memorial Hospitaltart: 54-86-8731Skxues scan of lower limb veinsUS venous duplex LE LT [facility] Hospitaltart: 98-82-9156QQ Lower extremity vein - left [facility] Hospitaltart: 61-04-0433LUpM,Tdap and Td Vaccines (2 - Td or Tdap)DTaP,Tdap and Td Vaccines (2 - Td or Tdap)[facility] Start: 52-09-9656Rfnrv microalbumin profileLicking Memorial Hospitaltart: 11-15-2021 Adult depression screening assessmentDEPRESSION SCREENINGLicking Memorial Hospitaltart: 88-50-1461Uhzssqtjiy A1c/Hemoglobin.total in XowboCCW1EXbhwvkamg ClinicStart: 59-27-4087RSEDI-19 VACCINE (4 - Booster for Moderna series)COVID-19 VACCINE (4 - Booster for Moderna series)[facility] Hospitaltart: 44-04-6495QMQGXXRDZVMN (2 - PCV)PNEUMOCOCCAL (2 - PCV)[facility] Hospitaltart: 16-82-1414Tayhekwegdbu vaccinationPneumococcal Vaccine (2 of 2 - PCV)[facility] Hospitaltart: 12-09-2020 Pneumococcal Vaccine: 50+ (2 of 2 - PCV)Pneumococcal Vaccine: 50+ (2 of 2 - PCV) [facility] Hospitaltart: 29-17-2060QxrwulentidHIOCFLHNZVtmnlzmbb ClinicStart: 61-00-4819Pyelhlort for malignant neoplasm of breastLicking Memorial Hospitaltart: 10-87-0629KRONUEGH VACCINE (1 of 2)SHINGRIX VACCINE (1 of 2)[facility] Start: 31-05-4860ZQPQMAWAB (FIT-DNA)COLOGUARD (FIT-DNA)[facility] Hospitaltart: 43-33-2378AgwyogqhhcwGFLMTRVUJDTUonwmfqnh ClinicStart: 21-43-7787XPCQRDAMWK CANCER SCREENINGCOLORECTAL CANCER SCREENINGLicking Memorial Hospitaltart: 67-84-0719VY COLONOGRAPHYCT COLONOGRAPHYLicking Memorial Hospitaltart: 14-13-1738CXUSX OCCULT BLOOD FECAL OCCULT BLOODLicking Memorial Hospitaltart: 36-84-8278Nwknsfbvq for malignant neoplasm of colonLicking Memorial Hospitaltart: 63-93-2819JXDOFKMMQQMXZXFAEGPNEHUXJL [facility] Hospitaltart: 14-95-9252CZB TESTINGHPV TESTINGLicking Memorial Hospitaltart: 52-51-2185Ekdfkhroa for malignant neoplasm of cervixHPV TestingKindred Hospital Dayton Start: 86-69-6478QWO TESTINGPAP TESTINGLicking Memorial Hospitaltart: 1990 Screening for malignant neoplasm of cervixLicking Memorial Hospitaltart: 1988 Hepatitis B Vaccine (1 of 3 - 19+ 3-dose series)Hepatitis B Vaccine (1 of 3 - 19+ 3-dose series)[facility] Hospitaltart: 40-48-6949NRVBQR PCP TEAM CHRONIC DISEASE VISITANNUAL PCP TEAM CHRONIC DISEASE VISITLicking Memorial Hospitaltart: 94-94-6222Fugjuvvkz B surface antibody levelLDL CHOLESTEROLKindred Hospital Dayton Start: 12-85-0993TYXVBSWEI C SCREENINGHEPATITIS C SCREENINGKindred Hospital Dayton Start: 82-74-7291Zhkprewpn C screeningHepatitis C ScreeningKindred Hospital Dayton Start: 09-20-5867IDL SCREENINGHIV SCREENINGLicking Memorial Hospitaltart: 11-17-9795TRB screeningHIV ScreeningLicking Memorial Hospitaltart: comp foot exam completedDIABETIC FOOT EXAMLicking Memorial Hospitaltart: 30-94-4538Zspcrwpb foot examinationDiabetic Foot ExamCleRiverview Health Institutetart: 04-31-6142Jlflgund screening Dilated Retinal ExamCleRiverview Health Institutetart: 33-30-7435Plqrjriay B screeningURINE ALBUMIN:CREATININE RATIOLicking Memorial Hospitaltart: 88-38-1013Pdauecuix C antibody, confirmatory testDILATED RETINAL EXAMCleRiverview Health Institutetart: 87-42-4628Fgubnuts screeningDiabetic Ophthalmology ExamProSumma Health Barberton Campustart: 1970 HEPATITIS B (1 of 3 - 3-dose series)HEPATITIS B (1 of 3 - 3-dose series) [facility] End: 04-38-6130Cyygigjt identified in Urine by CultureUrine culture (clean catch) Microbiology Routine Burning with urination 1 Occurrences starting 08/27 until 08/27/2025[employer] Work Phone: Comment on above:1 Occurrences starting 08/27/2024 until 08/27/2025 End: 20-75-7333ACY W Auto Differential panel - BloodCBC auto differential Lab Routine Type 2 diabetes mellitus without complication, without long-term current use of insulin ([facility]) 1 Occurrences starting 04/18/2024 until 04/18/2025 [employer] Work Phone: Comment on above:1 Occurrences starting 04/18/2024 until 6CBC W Auto Differential panel - BloodCBC auto differential Lab Routine Type 2 diabetes mellitus without complication, without long-term current use of insulin ([facility]) 04/18/2024 11:17 AM [place] End: 53-17-8548Vzcoqudepwery metabolic 1999 panel - Serum or PlasmaComprehensive metabolic panel Lab Routine Type 2 diabetes mellitus without complication, without long-term current use of insulin ([facility]) 1 Occurrences starting 04/18/2024 until 04/18/2025[facility] HospitalKaboo Cloud CameraComment on above:1 Occurrences starting 04/18/2024 until 04/18/2025omprehensive metabolic 1999 panel - Serum or PlasmaComprehensive metabolic panel Lab Routine Type 2 diabetes mellitus without complication, without long-term current use of insulin ([facility]) 04/18/2024 11:17 AM [place] End: 94-69-4873Wh abdomen & pelvis w/contrast materialCT ABD/PEL W IVCON Radiology Routine Generalized abdominal pain 1 Occurrences starting 03/25/2022 until 04/24/2023[facility] Work Phone: Comment on above:1 Occurrences starting 03/25/2022 until 04/24/2023 End: 36-46-1414KQU - THERAPEUTIC, EUS, OR TUBE INTERVENTIONSEGD - THERAPEUTIC, EUS, OR TUBE INTERVENTIONS Endoscopy Routine Gastroparesis due to DM (HCC) (HCC) 1 Occurrences starting 08/02/2023 until 08/01/2024[facility] Work Phone: comment on above:1 Occurrences starting 08/02/2023 until 08/01/2024Electrogastrography dx transcut w/provoctve tstgEGG (ELECTROGASTROGRAPHY) Procedures Routine Gastroparesis Ordered: 05/19/2023 [facility] Work Phone: comment on above:Ordered: 05/19/2023 End: 99-52-5297Xeansyglpz A1c/Hemoglobin.total in BloodHemoglobin A1c Lab Routine Type 2 diabetes mellitus without complication, without long-term current use of insulin ([facility]) 1 Occurrences starting 04/18/2024 until 04/18/2025 [facility] HospitaluBeam InvestoprestoComment on above:1 Occurrences starting 04/18/2024 until 04/18/2025Hemoglobin A1c/Hemoglobin.total in BloodHemoglobin A1c Lab Routine Type 2 diabetes mellitus without complication, without long-term currentuse of insulin ([facility]) 04/18/2024 11:17 AM [place] End: 94-80-7706Gdphx 1996 panel - Serum or PlasmaLipid profile Lab Routine Type 2 diabetes mellitus without complication, without long-term current use of insulin ([facility]) 1 Occurrences starting 04/18/2024 until 04/18/2025[facility] HospitalKaboo Cloud CameraComment on above:1 Occurrences starting 04/18/2024 until 04/18/2025 Lipid 1996 panel - Serum or PlasmaLipid profile Lab Routine Type 2 diabetes mellitus without complication, without long-term current use of insulin ([facility]) 04/18/2024 11:17 AM [place] Cervical spine WO contrast [facility] End: 99-60-2005QE Stomach Views for gastric emptying solid phase W radionuclide PONM GASTRIC EMPTYING SOLID Radiology Routine Nausea 1 Occurrences starting 10/18/2023 until 5COhio[facility] Work Phone: comment on above:1 Occurrences starting 10/18/2023 until 11/14/2024 End: 85-77-1048GR Stomach Views for gastric emptying solid phase W radionuclide PONM GASTRIC EMPTYING SOLID Radiology Routine Nausea 1 Occurrences starting 05/01/2024 until 6COhio[facility] Work Phone: Comment on above:1 Occurrences starting 05/01/2024 until 05/29/2025Patient EducationBlanchard Valley Health System [facility] Work Phone: Patient referralBlanchard Valley Health System [facility] Work Phone: End: 45-36-5882Boujrgsilcr [Units/volume] in Serum or PlasmaTSH Lab Routine Type 2 diabetes mellitus without complication, without long-term current use of insu rodrigo ([facility]) 1 Occurrences starting 04/18/2024 until 04/18/2025[facility] HospitalKaboo Cloud CameraComment on above:1 Occurrences starting 04/18/2024 until 04/18/2025 Thyrotropin [Units/volume] in Serum or PlasmaTSH Lab Routine Type 2 diabetes mellitus without complication, without long-term current use of insulin ([facility]) 04/18/2024 11:17 AM [place] End: 16-63-3425Tzkvtcbgp (T4) free [Mass/volume] in Serum or PlasmaT4, free Lab Routine Type 2 diabetes mellitus without complication, without long-term current use of insulin ([facility]) 1 Occurrences starting 04/18/2024 until 04/18/2025 [facility] [employer] SystemComment on above:1 Occurrences starting 04/18/2024 until 04/18/2025Thyroxine (T4) free [Mass/volume] in Serum or PlasmaT4, free Lab Routine Type 2 diabetes mellitus without complication, without long-term current use of insulin ([facility]) 04/18/2024 11:17 AM ESTProMediMarymount Hospital Immunizations Immunization DateImmunizationNotesCare SjjdkjxvDvgviwvg00-46-8480gnocaahsj, seasonal, injectable, preservative freeCece Hannon PA-C Work Phone: [facility] AndersonMmyxww45-88-2418clmfjszoi virus vaccine, unspecified formulationMatfernando Barnettwilder [facility] 97-45-4953tzgtik vaccine, unspecified formulationCece Hannon PA-C Work Phone: [facility] AndersonJyxpcl33-03-1480sjpljxneo, injectable, quadrivalent, preservative freeCece Hannon PA-C Work Phone: [facility] AndersonGmwkxs97-41-1869mkxogrzav virus vaccine, unspecified formulationAmbar Vang [facility] Work Phone: [facility] DaytonOgocqg85-49-5963kpcqmtmcq, injectable, quadrivalent, preservative freeCheco Spivey MD Work Phone: [facility] DaytonPnhrxd54-30-1395nxowsmghj, injectable, quadrivalent, preservative freeGardenia Gupta PA-C Work Phone: [facility] DaytonLkosdm90-20-5508PKMJJ-03 mRNA-1273 (Moderna) LINDA Hannon Work Phone: [facility]04-19-2021COVID-19 vaccine, full dose (MODERNA)Gardenia Gupta PA-C Work Phone: [facility] DaytonRlslpy18-51-6148KGVW-MVN-6 (COVID-19) Vaccine, UnspecifiedCece Hannon PA-C Work Phone: [facility] AndersonWltdqo75-54-5711WFOIG-11 mRNA-1273 (Moderna)LINDA Hannon Work Phone: [facility]03-22-2021SARS-COV-2 (COVID-19) Vaccine, UnspecifiedAndrea Hannon PA-C Work Phone: [facility] AndersonHmuoup35-19-6132mafswrtll, injectable, quadrivalent, preservative freeMindy Edvin PA-C Work Phone: [facility] DaytonKzqjdq08-34-2805zxxlildregqn polysaccharide vaccine, 23 valentMindy Edvin PA-C Work Phone: [facility] DaytonYqeahx73-18-7661kpmzpbacu, intradermal, quadrivalent, preservative free, injectableMindy Edvin PA-C Work Phone: [facility] DaytonSwwdqz77-76-1052tsqalajry, injectable, quadrivalent, preservative freeMindy Edvin PA-C Work Phone: [facility] DaytonRnhtmd88-64-7811yxmkuwpht, injectable, quadrivalent, preservative freeMindy Edvin PA-C Work Phone: [facility] DaytonAzsdqu68-04-5954rvbizczug nasal, unspecified formulationMindy Edvin PA-C Work Phone: [facility] DaytonKvtxna38-82-9222eanhdywfa virus vaccine, unspecified formulationAndrebyron Hannon PA-C Work Phone: [facility] AndersonSbbojs07-12-9057nvfzyjyuq, injectable, quadrivalent, contains preservativeMindy Edvin PA-C Work Phone: [facility] DaytonTutyyk80-14-0016szvdcxqho, injectable, quadrivalent, contains preservativeMindy Edvin PA-C Work Phone: [facility] DaytonPdgetd56-22-6634qadnhwcyx, injectable, quadrivalent, contains preservativeMindy Edvin PA-C Work Phone: [facility] DaytonBoxean60-42-8852rujokjv toxoid, reduced diphtheria toxoid, and acellular pertussis vaccine, adsorbedMindy Edvin PA-C Work Phone: [facility] Payers DatePayer CategoryPayerPolicy [id number] MEDICARE AETNA MEDICARE ASSURE HMO D SNP [id number] 2023-Present [phone] [address] [place] [address] [id number] Medicare (Managed Care)[id number]. Medicare [id number] 2024Medicare [id number] MedicaidBUCKEYE MEDICAID MYCARE BUCKEYE MEDICAID [id number] 2020-Present [phone] [address] [place] [address] [id number] 2021Medicaid [id number] BLUE CROSS AND BLUE SHIELD ANTHEM MEDIBLUE O [id number] 2019-Present [phone] [address] [place] [address] [id number] [id number]5160-81-7193Ysctpoh 1.2.840.713041.1.13.159.2.7.3.589[id number] 2.16.840.1.460057.3.57[id number] 2.16.840.1.634699.3.57[id number] 2.840.1.858437.3.57[id number] 2..840.1.203636.3.57[id number] 2.840.1.791959.3.57[id number] 2.840.1.397446.3.57[id number] 2.840.1.971408.3.57[id number] 2.840.1.325663.3.57[id number] 2.840.1.786176.3.57[id number] 2.0.1.143419.3.57[id number] 2.840.1.595155.3.57[id number] 2.0.1.004712.3.57[id number] 2.840.1.201454.3.57[id number] 2.840.1.303247.3.57[id number] 2.840.1.084110.3.57[id number] 2.840.1.647160.3.57[id number] 2..840.1.201159.3.57[id number] 2.16.840.1.369895.3.57[id number] 2..0.1.405517.3.57[id number] 2..840.1.513966.3.57[id number] 2.0.1.896178.3.57[id number] 2.840.1.715250.3.579.2.898759-53-9071WoephftNTH835V7509437-75-5387Fjvhygn [id number] [id number] 2.0.1.769[id number] 2.0.1.048780.3.579.2.531 Social History DateTypeDetailFacilityStart: 09-19-2019 End: 72-35-8639Pdtaryg smoking status NHISNever smoked tobaccoKindred Hospital Dayton Start: 05-27-2021 End: 66-80-9308Efheghj intakeCurrent non-drinker of alcohol (finding)[facility] Hospitaltart: 02-06-2020 End: 23-00-3358Kzklxtl CommentBoyfriend smokesCCleveland Clinic Hillcrest Hospitaltart: 1970 Sex Assigned At BirthFemaleCCleveland Clinic Hillcrest Hospitaltart: 05-17-2021 End: 47-77-7577Fztbnefc to SARS-CoV-2 (event)Not sureLicking Memorial Hospitaltart: 04-07-2022 End: 94-80-4379Xdq Assigned At BirthNocrossroads regional medical center [employer] Other Start: 02-06-2020 End: 42-92-9348Uaegyvu use and exposureSmokeless tobacco non-userKindred Hospital Dayton Work Phone: Start: 04-07-2022 End: 98-49-0167Meobvia of Social functionKindred Hospital DaytonAdult Depression Screening Ynhongsseo9Hbonbxxkr ClinicStart: 03-36-7963Tvekyh identityIdentifies as female gender (finding)[facility] Hospitaltart: 53-23-9345Vzjevd orientation Heterosexual (finding)[facility] Hospitaltart: 10-02-2014 End: 72-68-3829CqyAcxobw (finding)[facility] ClinicDo you belong to any clubs or organizations such as zoroastrianism groups, unions, fraternal or athletic groups, or school groups?NoPPointe Coupee General Hospital Health SystemHow often do you have 6 or more drinks on 1 occasion?NeverProMedica Health SystemDo you feel stress - tense, restless, nervous, or anxious, or unable to sleep at night because your mind is troubled all the time - these days [OSQ]To some extentBlanchard Valley Health SystemGennio SystemStart: 92-25-0694Grqdzgngf70KqdHibpvy Health SystemStart: 16-03-2595Ofr assigned at birthNot on fileMayo Memorial HospitalTradehillexual OrientationCoshocton Regional [facility] Center Medical Equipment Procedure CodeEquipment CodeEquipment Original TextEquipment IdentifierDates [id number]: 11-13-2023 End: strip by other route in the morning and 1 strip before bedtime. [id number]: 16-19-0448NICA 2 TIMES A [id number]: 45-93-0391Spdgas 1 Pen Needle under the skin nightly.[id number]: 07-02-2024 Goals DatePatient GoalDesired Activity/State Functional Status YvwvMtjssrecktXeincnXbdtixxh87-29-0167Sljxjflvqc StatusN/AFisher - [facility] CenterMsvbxy06-94-9862Hbklqpvlla StatusNoCoshocton Regional Medical Center09-12-2014Are you deaf, or do you have serious difficulty hearingNo 11/08/2013 8:56 AM Melia AmadorACMC Healthcare SystemBfjqzc09-70-5099Nke you blind, or do you have serious difficulty seeing, even when wearing glassesYes 11/08/2013 8:56 AM Melia Amador [facility]09-12-2014Do you have serious difficulty walking or climbing stairsYes 11/08/2013 8:56 AM Melia Amador [facility] 74-46-3092Id you have difficulty dressing or bathingNo 11/08/2013 8:56 AM Melia Amador [facility]Pqkrxm30-68-5579Hslkckh of a physical, mental, or emotional condition, do you have difficulty doing errands alone such as visiting a physician's office or shoppingNo 11/08/2013 8:56 AM Melia Amador No [facility] Mental Status UirbKkphkofanvAlfjyiQesujeka83-34-9636Gogqxom of a physical, mental, or emotional condition, do you have serious difficulty concentrating, remembering, or making decisionsNo 11/08/2013 8:56 AM Melia Bond [facility] Clinical Notes 01-06-2021 to 01-01-2025 Note Date & GmbvFhaeQhiwmzqh72-60-8912 NoteDIVISION OF VASCULAR SURGERY HPI Naila Beltran is a 54 y.o. female who presents today for new patient appt. She is taking eliquis, atorvastatin. Patient states discoloration on left leg and pain between knee up to thigh rates the pain 9. She states the graft being closed up towards her stomach in upper thigh area. Notices her left leg is always swollen. She states when on the leg leg for to long starts to get wobbly. Review of Systems Constitutional: Positive for decreased appetite and weight gain. Negative for chills, diaphoresis, fever, malaise/fatigue and night sweats. HENT: Negative for congestion, ear discharge, ear pain, hearing loss, hoarse voice, nosebleeds, odynophagia, sore throat, stridor and tinnitus. Eyes: Negative for blurred vision, discharge, double vision, pain, photophobia, redness, vision loss in left eye, vision loss in right eye, visual disturbance and visual halos. Cardiovascular: Positive for irregular heartbeat and leg swelling. Negative for chest pain, claudication, cyanosis, dyspnea on exertion, near-syncope, orthopnea, palpitations, paroxysmal nocturnal dyspnea and syncope. Respiratory: Positive for shortness of breath. Negative for cough, hemoptysis, sleep disturbances due to breathing, snoring, sputum production and wheezing. Endocrine: Positive for cold intolerance. Negative for heat intolerance, polydipsia, polyphagia and polyuria. Hematologic/Lymphatic: Negative for adenopathy and bleeding problem. Bruises/bleeds easily. Skin: Positive for color change. Negative for dry skin, flushing, itching, nail changes, poor wound healing, rash, skin cancer, suspicious lesions and unusual hair distribution. Musculoskeletal: Positive for muscle cramps and neck pain. Negative for arthritis, back pain, falls, gout, joint pain, joint swelling, muscle weakness, myalgias and stiffness. Gastrointestinal: Negative for bloating, abdominal pain, anorexia, change in bowel habit, bowel incontinence, constipation, diarrhea, dysphagia, excessive appetite, flatus, heartburn, hematemesis, hematochezia, hemorrhoids, jaundice, melena, nausea and vomiting. Genitourinary: Positive for urgency. Negative for bladder incontinence, decreased libido, dysuria, flank pain, frequency, genital sores, hematuria, hesitancy, incomplete emptying, menorrhagia, missed menses, nocturia, non-menstrual bleeding and pelvic pain. Neurological: Positive for loss of balance. Negative for aphonia, brief paralysis, difficulty with concentration, disturbances in coordination, excessive daytime sleepiness, dizziness, focal weakness, headaches, light-headedness, numbness, paresthesias, seizures, sensory change, tremors, vertigo and weakness. Psychiatric/Behavioral: Negative for altered mental status, depression, hallucinations, hypervigilance, memory loss, substance abuse, suicidal ideas and thoughts of violence. The patient does not have insomnia and is not nervous/anxious. Allergic/Immunologic: Positive for environmental allergies. Negative for HIV exposure, hives and persistent infections. Past Medical History: Medical History[1] Objective Visit Vitals Smoking Status Never Vascular Physical Exam Imaging Reviewed: Assessment and Plan: [1] Past Medical History: Diagnosis Date Aneurysm Clotting disorder Deep vein thrombosis (CMS/HCC) Factor V Leiden [facility]11-05-2025 Note.03 3 DIVISION OF VASCULAR SURGERY HPI Naila Beltran is a 54 y.o. female who presents today for No chief complaint on file. ROS Past Medical History: Medical History[1] Objective Visit Vitals Smoking Status Never Vascular Physical Exam Imaging Reviewed: Assessment and Plan: [1] Past Medical History: Diagnosis Date Aneurysm Clotting disorder Deep vein thrombosis (CMS/HCC) Factor V Leiden [facility] NoteDIVISION OF VASCULAR SURGERY HPI Naila Beltran is a 54 y.o. female with a past medical history of thoracic aortic aneurysm, CAD, May-Thurner syndrome who presents today for new patient appt. patient has been previously seen here by Dr. Orlando, but it was back in 2011 when patient had her surgery, which was a femorofemoral vein bypass. Since that time, patient has had repeat surgery in 2019 for removal of thrombus from the graft. Between 2018 and now, patient has had yearly check-in's with her vascular surgeon in [place]. The last visit she has had with vascular surgery was in 2022, at which time her bypass graft had not reoccluded. However, this spring the patient went back for an ultrasound which revealed her femorofemoral bypass graft had become occluded due to thrombosis. Patient had previously been following with Dr. Ford, but as he has left his prior practice, patient now prefers to come back to receive vascular surgery follow-up and care here with Dr. Orlando. Patient reports that starting approximately 6 to 8 months ago, she has begun to have left lower extremity pain, primarily localized to behind her knee radiating down her leg into the ankle. Patient reports that the pain is exacerbated by a walking and physical palpation and is relieved by elevation. Patient reports that her left leg has had significant varicosity since 2007, the same leg in which she currently is having the pain. The patient reports being on Eliquis 2.5 mg twice daily, atorvastatin. Patient was interviewed, examined and counseled by Dr. Orlando. Review of Systems Constitutional: Positive for decreased appetite and weight gain. Negative for chills, diaphoresis, fever, malaise/fatigue and night sweats. HENT: Negative for congestion, ear discharge, ear pain, hearing loss, hoarse voice, nosebleeds, odynophagia, sore throat, stridor and tinnitus. Eyes: Negative for blurred vision, discharge, double vision, pain, photophobia, redness, vision loss in left eye, vision loss in right eye, visual disturbance and visual halos. Cardiovascular: Positive for irregular heartbeat and leg swelling. Negative for chest pain, claudication, cyanosis, dyspnea on exertion, near-syncope, orthopnea, palpitations, paroxysmal nocturnal dyspnea and syncope. Respiratory: Positive for shortness of breath. Negative for cough, hemoptysis, sleep disturbances due to breathing, snoring, sputum production and wheezing. Endocrine: Positive for cold intolerance. Negative for heat intolerance, polydipsia, polyphagia and polyuria. Hematologic/Lymphatic: Negative for adenopathy and bleeding problem. Bruises/bleeds easily. Skin: Positive for color change. Negative for dry skin, flushing, itching, nail changes, poor wound healing, rash, skin cancer, suspicious lesions and unusual hair distribution. Musculoskeletal: Positive for muscle cramps and neck pain. Negative for arthritis, back pain, falls, gout, joint pain, joint swelling, muscle weakness, myalgias and stiffness. Gastrointestinal: Negative for bloating, abdominal pain, anorexia, change in bowel habit, bowel incontinence, constipation, diarrhea, dysphagia, excessive appetite, flatus, heartburn, hematemesis, hematochezia, hemorrhoids, jaundice, melena, nausea and vomiting. Genitourinary: Positive for urgency. Negative for bladder incontinence, decreased libido, dysuria, flank pain, frequency, genital sores, hematuria, hesitancy, incomplete emptying, menorrhagia, missed menses, nocturia, non-menstrual bleeding and pelvic pain. Neurological: Positive for loss of balance. Negative for aphonia, brief paralysis, difficulty with concentration, disturbances in coordination, excessive daytime sleepiness, dizziness, focal weakness, headaches, light-headedness, numbness, paresthesias, seizures, sensory change, tremors, vertigo and weakness. Psychiatric/Behavioral: Negative for altered mental status, depression, hallucinations, hypervigilance, memory loss, substance abuse, suicidal ideas and thoughts of violence. The patient does not have insomnia and is not nervous/anxious. Allergic/Immunologic: Positive for environmental allergies. Negative for HIV exposure, hives and persistent infections. Past Medical History: Medical History[1] Objective Visit Vitals BP 110/65 (BP Location: Right arm, Patient Position: Sitting, BP Cuff Size: Adult) Pulse 62 Resp 18 Ht 1.702 m (5' 7 ) Wt 98.4 kg (217 lb) SpO2 98% BMI 33.99 kg/m??? Smoking Status Never BSA 2.16 m??? Vascular Physical Exam Constitutional: General: She is awake. Cardiovascular: Rate and Rhythm: Normal rate. Pulses: Dorsalis pedis pulses are 2+ on the right side and 2+ on the left side. Posterior tibial pulses are detected w/ Doppler on the right side and detected w/ Doppler on the left side. Right posterior tibial pulse signal is biphasic. Left posterior tibial pulse signal is biphasic. Left Thigh: (more content not included)...[facility] 12-27-2024 Miscellaneous Notes* Telephone Encounter - Elyssa Donaldson CMA - 12/27/2024 10:55 AM EDT Patient called into the office and stated there was a mix up with her vascular surgeon, she used tosee Dr. Orlando and he has moved, she is requesting a referral to his [place] at [place] with a fax numberof [phone], fax to be sent ATTN: Sofia. Please advise. * Telephone Encounter - Cece Hannon PA-C - 12/27/2024 10:55 AM EDT Order placed to Dr. Orlando Please fax order to the correct fax #. As it is not the same as she gave me. * Telephone Encounter - Elyssa Donaldson CMA - 12/27/2024 10:55 AM EDT Fax successfully sent to [phone] on 12/27/24. documented in this encounterOur [facility] Telephone encounter Note* Telephone Encounter - Elyssa Donaldson CMA - 12/27/2024 10:55 AM EDT Patient called into the office and stated there was a mix up with her vascular surgeon, she used alex[place] Dr. Orlando and he has moved, she is requesting a referral to his office at [place] with a fax numberof [phone], fax to be sent ATTN: Sofia. Please advise. [facility] Telephone encounter Note* Telephone Encounter - Cece Hannon PA-C - 12/27/2024 10:55 AM EDT Order placed to Dr. Orlando Please fax order to the correct fax #. As it is not the same as she gave me. [facility] Telephone encounter Note* Telephone Encounter - Elyssa Donaldson CMA - 12/27/2024 10:55 AM EDT Fax successfully sent to [phone] on 12/27/24. [facility] Miscellaneous Notes* Telephone Encounter - Elyssa Donaldson CMA - 12/23/2024 10:29 AM EDT Patient called into the office and stated that her pharmacy doesn't carry dextromethorphan-guaiFENesin that was prescribed for her today, she also stated insurance wouldn't cover it. She would like to know if you would be willing to send something else in to the pharmacy on file? Please advise. * Telephone Encounter - Cece Hannon PA-C - 12/23/2024 10:29 AM EDT Coricidan hbp cough/congestion is an otc option. Will cxr that. Sent tessalon and mucinex. * Telephone Encounter - Elyssa Donaldson CMA - 12/23/2024 10:29 AM EDT Patient notified, verbalized understanding. documented in this encounterOur [facility] Telephone encounter Note* Telephone Encounter - Elyssa Donaldson CMA - 12/23/2024 10:29 AM EDT Patient called into the office and stated that her pharmacy doesn't carry dextromethorphan-guaiFENesin that was prescribed for her today, she also stated insurance wouldn't cover it. She would like to know if you would be willing to send something else in to the pharmacy on file? Please advise. [facility] Telephone encounter Note* Telephone Encounter - Cece Hannon PA-C - 12/23/2024 10:29 AM EDT Coricidan hbp cough/congestion is an otc option. Will cxr that. Sent tessalon and mucinex. [facility] Telephone encounter Note* Telephone Encounter - Elyssa Donaldson CMA - 12/23/2024 10:29 AM EDT Patient notified, verbalized understanding. [facility] History of Present illness Narrative* Cece Hannon PA-C - 12/23/2024 8:30 AM EDT Images from the original note were not included. Subjective Patient ID: Naila Beltran is a 54 y.o. female. Chief Complaint Chief Complaint Patient presents with Follow-up Patient here for follow up thinks she has sinus infection, she states her symptoms started 4 days ago. She states she has a cough, headache, sinus congestion. She had an A1c done from a nurse at homeon 12/13/24 her result was 7.4%. HPI HPI Naila is a 54-year-old,uncontrolled diabetic, history of seizure disorder, pt with thyroid nodules, enlarged aorta. Last seen 08/27/2024. DM: Last A1C was 10.3 as of 04/18/2024. Improved to 7.8 as of 09/05/2024. Last week down to 7.4% via with cutting out soda, carbs. Stopped coke. Drinking water. fasting 130-140's. Taking jardiance 25mgand glyburide 5mg 1 po bid. Taking 12 Units of insulin. No foot sores, open wounds, neuropathy. HadDM eye exam in past year, wears glasses. Day #3 of pressure in forehead/cheeks, blowing nose frequently. Chest cough, clear productive mucous, sticky x 3 days. Has needed albuterol MDI 3-4x/day for increased sob but no apparent wheezing. Nodizziness, lightheadedness. Taking fluids well. Tried tylenol sinus and it took away sinus headacheon Monday. No known illness exposure. No recent vaccines. No recent seizures. Specialist: CT Abdomen US ordered by cardiology, scheduled at [place]. Monitoring AAA. No midline abdominal pain. 12/30/24 Vascular specialist Labs: 04/18/2024 Mamm: Overdue Dexascan: Due C-scope: 2019 Past Medical History Past Medical History: Diagnosis Date Anemia iron deficiency Anxiety Arthritis Back pain with right-sided sciatica Cataract Cervical disc disease Cervical radiculopathy Cervical spondylosis Cobalamin deficiency COVID-19 02/14/2020 COVID-19 virus detected 02/08/2020 Deep vein thrombosis (DVT) of lower extremity ([facility]) 05/25/2017 Depression Diabetic eye exam ([facility]) 06/06/2017 Dr. Hicks: diabetic retinopathy not detected-distance visual acuity:OD- 20/20, OS-20/20, re-evaluation 1 yr. Dilation of thoracic aorta Elevated LDL cholesterol level Eye exam, routine 08/14/2009 Dr. Hicks, presbyopia OU Fatigue Fatty liver Gallstone Gastroesophageal reflux disease without esophagitis 2020 [facility]-Dr. Garcia Generalized convulsive epilepsy ([facility]) Headache, classical migraine, intractable, with status migrainosus Dr. Julio pinched nerve in neckl Heterozygous factor V Leiden mutation Hypercoagulable state Hyperlipidemia Hypoalphalipoproteinemia Migraine without aura and without status migrainosus, not intractable 05/09/2017 Mood swings MRSA (methicillin resistant Staphylococcus aureus) Narrowing of intervertebral disc space Nevus anemicus Obesity Pain in limb Seizures ([facility]) 3 mo old, 17 1/2 yrs old, [...] bilateral selective coronary angiography, placement of a 6-Spanish MynxGrip closure device. Impression: Mild disease of [...] common & proximal iliac veins.Ectrinsic compression,non-stented proximal lt.common iliac vein between rt. common iliac artery [...] congestive changes interstitial infiltrates. abdomen/plevis, mild fatty in filtration liver. Multiple gallstones-gallbladder.Likely tiny rt renal, adnexal cysts. FINE NEEDLE ASPIRATION Right 01/09/2017 Thyroid: Benign, consistent with benign follicular nodule with Hurthle cell changes. Groups of follicuar cells, show Hurthie cell changes are present, forming variable sized follicles, background of abundant peripheral blood and colloid. Increased lymphocytes, suggestive of lymphocytic thyroiditis. HYSTERECTOMY 07/29/2011 INJECTION ANESTHETIC AGENT TO CERVICAL PLEXUS [id number], 06/14/2017, 07/10/2017, 07/31/2017 Dr. Adan Julio, cervical [...] Conclusion-No clear pattern of ischemia or myocardial infarction.Abnormal left ventricular systolic function with calculated ejection fraction of 46%. No previous study available for comparison. PYLOROPLASTY 10/18/2023 [facility]- Dr. Bowling, general surgeon RADIOFREQUENCY ABLATION 10/10/2014 cervical medial branch radiofrequency ablation-cervical spondylosis ROTATOR CUFF REPAIR Left 2017 left shoulder US CAROTID DUPLEX COMP-BILAT 11/29/2016 [facility]. minimal plaques, no high grade stenosis US THYROID 12/07/2016 IMPRESSION: 2.1cm heterogeneous right mid nodule. 6 mm left midpole hypoechoic ill-defined nodule. Dr. Delvis Dominguez-[facility] US THYROID 11/21/2018 Left nodule interval enlargement [...] Paying Living Expenses: Patient declined Food Insecurity: No Food Insecurity (12/23/2024) Hunger Screening Food Insecurity - Worry: Never True Food Insecurity - Inability: Never True Transportation Needs: Unmet Transportation Needs (06/09/2024) PRAPARE - Transportation Lack of Transportation (Medical): Yes Lack of Transportation (Non-Medical): No Physical Activity: Sufficiently Active (04/07/2022) Exercise Vital Sign Days of Exercise per Week: 7 days Minutes of Exercise per Session: 60 min Stress: Stress Concern Present (04/07/2022) Citizen Of The [place] [employer] - Occupational Stress Questionnaire Feeling of Stress : To some extent Social Connections: Unknown (04/07/2022) Social Connection and Isolation Panel Frequency of Communication with Friends and Family: Three times a week Frequency of Social Gatherings with Friends and Family: Patient declined Attends Moravian Services: Patient declined Active Member of Clubs or Organizations: No Attends Club or Organization Meetings: Patient declined Marital Status: Patient declined Interpersonal Safety: Unknown (04/20/2023) Received from [facility] Environment Fear of Current [...] Current Outpatient Medications Medication Sig Dispense Refill apixaban (ELIQUIS) 2.5 mg tablet Take 1 tablet (2.5 mg total) by mouth in the morning and 1 tablet (2.5 mg total) before bedtime. aspirin 81 mg Take 1 tablet (81 mg total) by mouth daily. 90 tablet 3 atorvastatin (LIPITOR) 40 mg tablet TAKE ONE TABLET BY MOUTH IN THE MORNING 90 tablet 1 blood sugar diagnostic (CONTOUR NEXT TEST STRIPS) strip TEST BEFORE BREAKFAST AND BEDTIME 100 strip3 blood sugar diagnostic (ONETOUCH ULTRA TEST) strip 1 strip by other route in the morning and 1 strip before bedtime. 200 strip 3 blood-glucose meter (WotoTOUCH ULTRA2 METER) [facility] USE TO CHECK GLUCOSE TWICE DAILY 1 each 0 cetirizine (ZyrTEC) 10 mg tablet Take 1 tablet (10 mg total) by mouth in the morning for 30 days. 30 tablet 5 cholecalciferol, vitamin D3, (VITAMIN D3) 2,000 units capsule Take 1 capsule (2,000 Units total) bymouth in the morning. 90 capsule 3 empagliflozin (JARDIANCE) 25 mg tablet tablet TAKE ONE TABLET BY MOUTH EVERY MORNING 90 tablet 1 insulin glargine (LANTUS U-100 INSULIN) 100 unit/mL injection Inject 0.14 mL (14 Units total) underthe skin nightly. 10 mL 1 lancets (MICROLET LANCET) [facility] TEST 2 TIMES A DAY 200 each [...] under the skin nightly. 100 each 0 albuterol (PROVENTIL HFA;VENTOLIN HFA) 90 mcg/actuation inhaler Inhale 2 puffs in the morning and 2puffs before bedtime. 18 g 3 busPIRone (BUSPAR) 10 mg tablet Take 1 tablet (10 mg total) by mouth 3 (three) times a day. 90 tablet 5 dextromethorphan-guaiFENesin (CORICIDIN HBP CHEST RUDDY-COUGH) 10-200 mg capsule Take 1 capsule by mouth every 6 (six) hours for 5 days. 20 each 0 glyBURIDE (DIABETA) 5 mg tablet 1 before breakfast and 1 before dinner 60 tablet 5 predniSONE (DELTASONE) 20 mg tablet Take 1 AM with breakfast and 1 4pm with food. 6 tablet 0 VENTOLIN HFA 90 mcg/actuation inhaler inhale 2 puffs by mouth four times a day if needed for wheezing or shortness of breath (Patient not taking: Reported on 12/23/2024) 18 g 3 No current facility-administered medications for this visit. Review of Systems Review of Systems Constitutional: Negative for activity change, appetite change, fatigue, fever and unexpected weightchange. HENT: Positive for postnasal drip, rhinorrhea, sinus pressure and sinus pain. Negative for congestion, ear pain and sore throat. Eyes: Positive for visual disturbance (right eye blurred vision/cataract). Negative for discharge and redness (resolved s/p covid). Respiratory: Positive for cough and shortness of breath. Negative for wheezing. Cardiovascular: Negative for chest pain and leg swelling. Gastrointestinal: Negative for abdominal distention, abdominal pain, anal bleeding, blood in stool,constipation, diarrhea, nausea and vomiting. GI upset, chronic-seeing specialist. EGD/C-scope UTD. + mobility issue, undigested food x 48 hours. Endocrine: Negative for polyuria. Blood sugars much lower, improved Genitourinary: Negative for dysuria, flank pain, hematuria and urgency. Musculoskeletal: Negative for back pain, myalgias and neck pain. Skin: Negative for rash and wound. Neurological: Positive for seizures (controlled, neurology yearly, keppra compliant) and headaches.Negative for dizziness, weakness and numbness. Psychiatric/Behavioral: Negative for confusion and sleep disturbance. The patient is not nervous/anxious. Objective Vitals BP 132/78 (BP Site: Left Arm, BP Postition: Sitting, BP CUFF SIZE: M (9-13 inches)) Pulse 60 Temp 36.2 C (97.1 F) Ht 167.6 cm (5' 5.98 ) Wt 111.1 kg (245 lb) LMP (LMP Unknown) SpO2 97% BMI 39.56 kg/m Wt Readings from Last 3 Encounters: 12/23/24 111.1 kg (245 lb) 09/10/24 109.8 kg (242 lb) 08/27/24 109.8 kg (242 lb) Physical Exam Physical Exam Vitals reviewed. Constitutional: General: She is not in acute distress. Appearance: She is well-developed. She is obese. She is not ill-appearing or diaphoretic. Comments: Pt is calm. In NAD. Good historian, pleasant, appropriate HENT: Head: Normocephalic and atraumatic. Right Ear: Tympanic membrane and ear canal normal. No middle ear effusion. Tympanic membrane is noterythematous. Left Ear: Tympanic membrane and ear canal normal. No middle ear effusion. Tympanic membrane is not erythematous. Nose: Mucosal edema, congestion and rhinorrhea present. Right Nostril: No foreign body. Left Nostril: No foreign body. Right Turbinates: Not enlarged or swollen. Left Turbinates: Not enlarged or swollen. Right Sinus: No maxillary sinus tenderness or frontal sinus tenderness. Left Sinus: No maxillary sinus tenderness or frontal sinus tenderness. Comments: No purulence of nares. PND, rhinorrhea Mouth/Throat: Lips: [place]. Mouth: Mucous membranes are moist. Tongue: No lesions. Palate: No mass. Pharynx: Oropharynx is clear. Postnasal drip present. No pharyngeal swelling or oropharyngeal exudate. Tonsils: No tonsillar exudate. Eyes: Conjunctiva/sclera: Conjunctivae normal. Pupils: Pupils [...] distress. Breath sounds: Normal breath sounds. No decreased air movement. No decreased breath sounds, wheezing, rhonchi or rales. Comments: Chest: Chest wall: No tenderness. Comments: Rare, dry, bronchial chest cough. No w/r/r. Abdominal: General: Bowel sounds are normal. Palpations: [...] Judgment normal. Recent Pertinent Labs and Radiology Covid/flu negative Assessment/Plan 1. FERNY (generalized anxiety disorder) - busPIRone (BUSPAR) 10 mg tablet; Take 1 tablet (10 mg total) by mouth 3 (three) times a day. Dispense: 90 tablet; Refill: 5 2. Type 2 diabetes mellitus with hyperglycemia, without long-term current use of insulin ([facility]) 3. Vitamin B 12 deficiency 4. Vitamin D insufficiency 5. Low HDL (under 40) 6. Mixed hyperlipidemia 7. Iron deficiency anemia, unspecified iron deficiency anemia type 8. Ascending aortic aneurysm, unspecified whether ruptured 9. Multiple thyroid nodules 10. Osteoarthritis of spine with radiculopathy, cervical region 11. Seizure disorder ([facility]) 12. Neuropathy 13. SVT (supraventricular tachycardia) 14. Hypercoagulable state 15. Gastroparesis due to DM ([facility]) 16. Factor V Leiden 17. Vascular disease 18. Viral URI with cough - POCT Xpert, Xpress CoV-2, FLU(Cepheid) - dextromethorphan-guaiFENesin (CORICIDIN HBP CHEST RUDDY-COUGH) 10-200 mg capsule; Take 1 capsule by mouth every 6 (six) hours for 5 days. Dispense: 20 each; Refill: 0 - predniSONE (DELTASONE) 20 mg tablet; Take 1 AM with breakfast and 1 4pm with food. Dispense: 6 tablet; Refill: 0 19. Mild intermittent reactive airway disease without complication - predniSONE (DELTASONE) 20 mg tablet; Take 1 AM with breakfast and 1 4pm with food. Dispense: 6 tablet; Refill: 0 20. Screening mammogram for breast cancer - Mammography screening bilateral with CAD; Future 21. Encounter for screening for osteoporosis - Dexa scan central skeletal; Future Medications Discontinued During This Encounter Medication Reason albuterol (PROVENTIL HFA;VENTOLIN HFA) 90 mcg/actuation inhaler Reorder busPIRone (BUSPAR) 10 mg tablet Reorder glyBURIDE (DIABETA) 5 mg tablet Reorder Patient Instructions Viral URI/viral bronchitis -coricidan -Prednisone -Covid/flu test negative. DM: A1C of 7.4, good improvement. No med changes. DM diet, foot exam. Mammogram Dexascan Hold on flu vaccine x 2 weeks Cece Hannon PA-C 12/23/24 [id number] documented in this encounterMayo [facility] HospitalKaboo [facility]10-27-2025 Instructions* Patient Instructions* Cece Hannon PA-C - 12/23/2024 8:30 AM EDT Viral URI/viral bronchitis -coricidan -Prednisone -Covid/flu test negative. DM: A1C of 7.4, good improvement. No med changes. DM diet, foot exam. Mammogram Dexascan Hold on flu vaccine x 2 weeks documented in this encounterOur [facility] NoteCardiovascular Medicine [facility] SUBJECTIVE Chief Complaint Patient presents with Follow-up 1 year routine follow up with Echo. Patient states she is still having chest, shoulder and back pain. Recently at [facility] ER for chest pain Coronary Artery Disease Hyperlipidemia Aneurysm of thoracic aorta SVT Cerebrovascular disease Shortness of Breath Naila Beltran is a 54 y.o. female here for follow-up. Coronary Artery Disease Symptoms include shortness of breath. Risk factors include hyperlipidemia. Hyperlipidemia Associated symptoms include shortness of breath. Shortness of Breath Her past medical history is significant for CAD. PMHx: ascending aortic aneurysm, fem-fem vein bypass, iliac vein compression syndrome, HTN, factor V leiden mutation. -Follows with aircraft life support fitter/oncologist - [facility] -Following with Dr. Garcia with GI - EGD at [facility] showed stomach was inflamed - colonoscopy showed polyps -Left leg with chronic DVT - See's Dr. Nassar for vascular at [facility] -Hx COVID 12/20/2023 She hasn't been [...] well controlled. She has issues with gastroporesis. 11/12/2024 She was recently at [facility] for c/o chest pain on 11/06/2024. She was also in the ER 10/30/24 - report notes c/o headache ER report from 11/06/24 notes c/o CP. Trop and EKG were unremarkable. Pain was reproducible with palpation. She has ongoing chest pains, it comes and goes. Located just left of her sternum. Occurs with rest, exertion, no triggering factors. Pain feels like tightness. Radiates up. This is the same type of pain she has been having just feels stronger than before. She last saw GI - Dr. Quiles last summer. She has gastroparesis and IBS. He stopped her pepsid and reglan. She has intermittent dyspnea. She saw Dr. Nassar a few months ago. He told her that her graft was closed. She is going to see Dr. Orlando in Dec to see what needs to be done. She has been having pain in her neck. She see's pain management. Heart palpitations are improved. She has intermittent dizziness/LH. She is down 13# since last seen. BP at home running 90-120s/60-100s. Patient Active Problem List Diagnosis Allergic rhinitis Aneurysm of thoracic aorta Back pain Anticoagulated Anxiety Arthralgia of upper arm Blood coagulation disorder Morbid obesity (CMS/HCC) Coronary artery disease of [place] artery of [place] heart with stable angina pectoris Classical migraine with intractable migraine Current use of anticoagulant therapy Depressive disorder Emotional instability (CMS/HCC) Gallstone FERNY (generalized anxiety disorder) Fatty liver Fatigue Factor V Leiden Generalized convulsive epilepsy (CMS/HCC) GERD (gastroesophageal reflux disease) Heartburn Hypercoagulable state History of COVID-19 History of cardiovascular disorder Hereditary coagulation factor deficiency (CMS/HCC) Kidney stone Iron deficiency anemia Hypoalphalipoproteinemia Elevated LDL cholesterol level May-Thurner syndrome Migraine 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rder Mixed hyperlipidemia HLD (hyperlipidemia) Headache Narrowing of [...] due to DM (CMS/HCC) Nausea & vomiting SVT (supraventricular tachycardia) Past Medical History: Diagnosis Date Aneurysm Clotting disorder Deep vein thrombosis (CMS/HCC) Factor V Leiden Hypertension Family History Problem Relation Name Age of Onset Heart failure Mother Valvular heart disease Mother Social History Tobacco Use Smoking status: Never Smokeless tobacco: Never Substance Use Topics Alcohol use: Yes Comment: Occasional Drug use: Never Allergies Allergen Reactions Heparin Thickens (more content not included)...[facility] 11-06-2024 NoteEducation Materials Orthopedics Chest Wall Pain Chest wall pain is pain in or around the bones and muscles of your chest. Chest wall pain may be caused by: ? An injury. ? Coughing a lot. ? Using your chest and arm muscles too much. Sometimes, the cause may not be known. This pain may take a few weeks or longer to get better. Follow these instructions at home: Managing pain, stiffness, and swelling If told, put ice on the painful area: ? Put ice in a plastic bag. ? Place a towel between your skin and the bag. ? Leave the ice on for 20 minutes, 2?3 times a day. Activity ? Rest as told by your doctor. ? Avoid doing things that cause pain. This includes lifting heavy items. ? Ask your doctor what activities are safe for you. General instructions ? Take [id number] and prescription medicines only as told by your doctor. ? Do not use any products that contain nicotine or tobacco, such as cigarettes, e-cigarettes, and chewing tobacco. If you need help quitting, ask your doctor. ? Keep all follow-up visits as told by your doctor. This is important. Contact a doctor if: ? You have a fever. ? Your chest pain gets worse. ? You have new symptoms. Get help right away if: ? You feel sick to your stomach (nauseous) or you throw up (vomit). ? You feel sweaty or light-headed. ? You have a cough with mucus from your lungs (sputum) or you cough up blood. ? You are short of breath. These symptoms may be an emergency. Do not wait to see if the symptoms will go away. Get medical help right away. Call your local emergency services (911 in the [place] Do not drive yourself to the hospital. Summary ? Chest wall pain is pain in or around the bones and muscles of your chest. ? It may be treated with ice, rest, and medicines. Your condition may also get better if you avoid doing things that cause pain. ? Contact a doctor if you have a fever, chest pain that gets worse, or new symptoms. ? Get help right away if you feel light-headed or you get short of breath. These symptoms may be anemergency. This information is not intended to replace advice given to you by your health care provider. Make sure you discuss any questions you have with your health care provider. Document Revised: 02/06/2023 Document Reviewed: 02/06/2023 [employer] Patient Education ? 2024 [employer].[facility] [id number] Note She needs a CTA chest/abdomen to get a closer look at her aneurysm. Please and thank you![facility]09-03-2025 NoteEducation Materials Neurology Migraine Headache A migraine headache is a very strong throbbing pain on one or both sides of your head. This type ofheadache can also cause other symptoms. It can last from 4 hours to 3 days. Talk with your doctor about what things may bring on (trigger) this condition. What are the causes? The exact cause of a migraine is not known. This condition may be brought on or caused by: ? Smoking. ? Medicines, such as: ? Medicine used to treat chest pain (nitroglycerin). ? control pills. ? Estrogen. ? Some blood pressure medicines. ? Certain substances in some foods or drinks. ? Foods and drinks, such as: ? Cheese. ? Chocolate. ? Alcohol. ? Caffeine. ? Doing physical activity that is very hard. Other things that may trigger a migraine headache include: ? Periods. ? . ? Hunger. ? Stress. ? Getting too much or too little sleep. ? Weather changes. ? Feeling tired (fatigue). What increases the risk? ? Being 25?55 years old. ? Being female. ? Having a family history of migraine headaches. ? Being . ? Having a mental health condition, such as being sad (depressed) or feeling worried or nervous (anxious). ? Being very overweight (obese). What are the signs or symptoms? ? A throbbing pain. This pain may: ? Happen in any area of the head, such as on one or both sides. ? Make it hard to do daily activities. ? Get worse with physical activity. ? Get worse around bright lights, loud noises, or smells. ? Other symptoms may include: ? Feeling like you may vomit (nauseous). ? Vomiting. ? Dizziness. ? Before a migraine headache starts, you may get warning signs (an aura). An aura may include: ? Seeing flashing lights or having blind spots. ? Seeing bright spots, halos, or zigzag lines. ? Having tunnel vision or blurred vision. ? Having numbness or a tingling feeling. ? Having trouble talking. ? Having weak muscles. ? After a migraine ends, you may have symptoms. These may include: ? Tiredness. ? Trouble thinking (concentrating). How is this treated? ? Taking medicines that: ? Relieve pain. ? Relieve the feeling like you may vomit. ? Prevent migraine headaches. ? Treatment may also include: ? Acupuncture. ? Lifestyle changes like avoiding foods that bring on migraine headaches. ? Learning ways to control your body functions (biofeedback). ? Therapy to help you know and deal with negative thoughts (cognitive behavioral therapy). Follow these instructions at home: Medicines ? Take rjmx-oxo-cbbhvey and prescription medicines only as told by your doctor. ? If told, take steps to prevent problems with pooping (constipation). You may need to: ? Drink enough fluid to keep your pee (urine) pale yellow. ? Take medicines. You will be told what medicines to take. ? Eat foods that are high in fiber. These include beans, whole grains, and fresh fruits and vegetables. ? Limit foods that are high in fat and sugar. These include fried or sweet foods. Ask your doctor if you should avoid driving or using machines while you are taking your medicine. Lifestyle ? Do not drink alcohol. ? Do not smoke or use any products that contain nicotine or tobacco. If you need help quitting, askyour doctor. ? Get 7?9 hours of sleep each night, or the amount recommended by your doctor. ? Find ways to deal with stress, such as meditation, deep breathing, or yoga. ? Try to exercise often. This can help lessen how bad and how often your migraines happen. General instructions ? Keep a journal to find out what may bring on your migraine headaches. This can help you avoid those things. For example, write down: ? What you eat and drink. ? How much sleep you get. ? Any change to your medicines or diet. ? If you have a migraine headache: ? Avoid things that make your symptoms worse, such as bright lights. ? Lie down in a dark, quiet room. ? Do not drive or use machinery. ? Ask your doctor what activities are safe for you. Where to find more information ? Coalition for Headache and Migraine Patients (CHAMP): headachemigraine.org ? [place] Migraine Foundation: americanmigrainefoundation.org ? National Headache Foundation: headaches.org Contact a doctor if: ? You get a migraine headache that is different or worse than others you have had. ? You have more than 15 days of headaches in one month. Get help right away if: ? Your migraine headache gets very bad. ? Your migraine headache lasts more than 72 hours. ? You have a fever or stiff neck. ? You have trouble seeing. ? Your muscles feel weak or like you cannot control them. ? You lose your balance a lot. ? You have trouble walking. ? You faint. ? You have a seizure. This information is not intended to replace advice given to you by your health care provider. Make sure you discuss any questions you have with your health care p (more content not included)...[facility] [id number] Note [id number]07-15-2025 History of Present illness Narrative* Cece Hannon PA-C - 09/10/2024 11:00 AM EDT Images from the original note were not included. Subjective Patient ID: Naila Beltran is a 54 y.o. female. Chief Complaint Chief Complaint Patient presents with Follow-up [facility] and labs comp HPI HPI Naila is [...] Deep vein thrombosis (DVT) of lower extremity ([facility]) 05/25/2017 Depression Diabetic eye exam ([facility]) 06/06/2017 Dr. Hikcs: diabetic retinopathy not detected-distance visual acuity:OD- 20/20, OS-20/20, re-evaluation 1 yr. Dilation of thoracic aorta Elevated LDL cholesterol level Eye exam, routine 08/14/2009 Dr. Hicks, presbyopia OU Fatigue Fatty liver Gallstone Gastroesophageal reflux disease without esophagitis 2020 [facility]-Dr. Garcia Generalized convulsive epilepsy ([facility]) Headache, classical migraine, intractable, with status migrainosus Dr. Julio pinched nerve in neckl Heterozygous factor V Leiden mutation Hypercoagulable state Hyperlipidemia Hypoalphalipoproteinemia Migraine without aura and without status migrainosus, not intractable 05/09/2017 Mood swings MRSA (methicillin resistant Staphylococcus aureus) Narrowing of intervertebral disc space Nevus anemicus Obesity Pain in limb Seizures ([facility]) 3 mo old, 17 1/2 yrs old, [...] bilateral selective coronary angiography, placement of a 6-Spanish MynxGrip closure device. Impression: Mild disease of [...] common & proximal iliac veins.Ectrinsic compression,non-stented proximal lt.common iliac vein between rt. common iliac artery [...] congestive changes interstitial infiltrates. abdomen/plevis, mild fatty in filtration liver. Multiple gallstones-gallbladder.Likely tiny rt renal, adnexal cysts. FINE NEEDLE ASPIRATION Right 01/09/2017 Thyroid: Benign, consistent with benign follicular nodule with Hurthle cell changes. Groups of follicuar cells, show Hurthie cell changes are present, forming variable sized follicles, background of abundant peripheral blood and colloid. Increased lymphocytes, suggestive of lymphocytic thyroiditis. HYSTERECTOMY 07/29/2011 INJECTION ANESTHETIC AGENT TO CERVICAL PLEXUS [id number], 06/14/2017, 07/10/2017, 07/31/2017 Dr. Adan Julio, cervical [...] Conclusion-No clear pattern of ischemia or myocardial infarction.Abnormal left ventricular systolic function with calculated ejection fraction of 46%. No previous study available for comparison. PYLOROPLASTY 10/18/2023 [facility]- Dr. Bowling, general surgeon RADIOFREQUENCY ABLATION 10/10/2014 cervical medial branch radiofrequency ablation-cervical spondylosis ROTATOR CUFF REPAIR Left 2017 left shoulder US CAROTID DUPLEX COMP-BILAT 11/29/2016 [facility]. minimal plaques, no high grade stenosis US THYROID 12/07/2016 IMPRESSION: 2.1cm heterogeneous right mid nodule. 6 mm left midpole hypoechoic ill-defined nodule. Dr. Delvis Dominguez-[facility] US THYROID 11/21/2018 Left nodule interval enlargement [...] 60 min Stress: Stress Concern Present (04/07/2022) Citizen Of The [place] Calvin [employer] Occupational Health - Occupational Stress Questionnaire Feeling of Stress : To some extent Social Connections: Unknown (04/07/2022) Social Connection and Isolation Panel [NHANES] Frequency of Communication with Friends and Family: Three times a week Frequency of Social Gatherings with Friends and Family: Patient declined Attends [employer] Services: Patient declined Active Member of Clubs or Organizations: No Attends Club or Organization Meetings: Patient declined Marital Status: Patient declined Interpersonal Safety: Unknown (04/20/2023) Received from [facility] Safety & Environment Fear of Current [...] Inhale 2 puffs in the morning and 2puffs before bedtime. apixaban (ELIQUIS) 2.5 mg tablet [...] strip TEST BEFORE BREAKFAST AND BEDTIME 100 strip3 blood sugar diagnostic (ONETOUCH ULTRA TEST) strip 1 strip by other route in the morning and 1 strip before bedtime. 200 strip 3 blood-glucose meter (ONETOUCH ULTRA2 METER) [facility] USE TO CHECK GLUCOSE TWICE DAILY 1 [...] capsule Take 1 capsule (2,000 Units total) bymouth in the morning. 90 capsule 3 empagliflozin [...] injection Inject 0.14 mL (14 Units total) underthe skin nightly. 10 mL 1 VENTOLIN HFA 90 mcg/actuation inhaler inhale 2 puffs by mouth four times a day if needed for wheezing or shortness of breath (Patient not taking: Reported on 09/10/2024) 18 g 3 No current facility-administered medications for this visit. Review of Systems Review of Systems Constitutional: Negative for activity change, appetite change, fatigue, fever and unexpected weightchange. HENT: Negative for congestion, ear pain, sinus pressure, sinus pain and sore throat. Eyes: Positive for visual disturbance (right eye blurred vision/cataract). Negative for discharge and redness (resolved s/p covid). Respiratory: Negative for cough and shortness of breath. Cardiovascular: Negative for chest pain and leg swelling. Gastrointestinal: Negative for abdominal distention, abdominal pain, anal bleeding, blood in stool,constipation, diarrhea, nausea and vomiting. GI upset, chronic-seeing [...] ) Wt 109.8 kg (242 lb) LMP (LMPUnknown) SpO2 97% BMI 39.06 kg/m Wt Readings [...] No middle ear effusion. Tympanic membrane is noterythematous. Left Ear: Tympanic membrane and ear canal [...] hyperglycemia, without long-term current use of insulin ([facility]) 2. Cyst of right kidney 3. Mixed hyperlipidemia 4. BMI 40.0-44.9, adult ([facility]) 5. Glucosuria - POCT urinalysis dipstick only Medications Discontinued During This Encounter Medication Reason insulin glargine (LANTUS U-100 INSULIN) 100 unit/mL injection Reorder Patient Instructions Excellent 2 week recheck. Leukocytes, hematuria have resolved. Renal ultrasound shows 1 cm renal cyst. Diabetes control has improved significantly from A1c of 10.3 down to 7.8. Today increased Lantusto 14 units at bedtime. Refilled glyburide 5 mg 3 daily. Patient's weight is steady. Diet is much better, glucose improved significantly. HTN controlled. Recheck in 3 months. Cece Hannon PA-C 09/10/24 1231 documented in [facility] encounterOur [facility] Instructions* Patient Instructions* Cece Hannon PA-C - 09/10/2024 11:00 AM EDT Excellent 2 week recheck. Leukocytes, hematuria have resolved. Renal ultrasound shows 1 cm renal cyst. Diabetes control has improved significantly from A1c of 10.3 down to 7.8. Today increased Lantusto 14 units at bedtime. Refilled glyburide 5 mg 3 daily. Patient's weight is steady. Diet is much better, glucose improved significantly. HTN controlled. Recheck in 3 months. documented in this encounterOur [facility] of [facility] History of Present illness Narrative* Cece Hannon PA-C - 08/27/2024 1:15 PM EDT Images from the original note were not included. Subjective Patient ID: Naila Beltran is a 54 y.o. female. Chief Complaint Chief Complaint Patient presents with Back Pain Right lower back pain HPI GAYLE Yoo is a 54-year-old uncontrolled diabetic, history of seizures disorder since to office for acuteright lower back pain. She was last seen 04/18/2024 and was to begin taking insulin injections Lantus 10 units. She never returned but is taking this nightly. DM: As advised added Insulin. Continues to take jardiance 25mg qd for A1C of 8.3 and glyburide 10mgBID. AM now running 127-160's. Previously AM 214-287. [...] Deep vein thrombosis (DVT) of lower extremity ([facility]) 05/25/2017 Depression Diabetic eye exam ([facility]) 06/06/2017 Dr. Hicks: diabetic retinopathy not detected-distance visual acuity:OD- 20/20, OS-20/20, re-evaluation 1 yr. Dilation of thoracic aorta Elevated LDL cholesterol level Eye exam, routine 08/14/2009 Dr. Hicks, presbyopia OU Fatigue Fatty liver Gallstone Gastroesophageal reflux disease without esophagitis 2020 Upper GI-Dr. Garcia Generalized convulsive epilepsy ([facility]) Headache, classical migraine, intractable, with status migrainosus Dr. Julio pinched nerve in neckl Heterozygous factor V Leiden mutation Hypercoagulable state Hyperlipidemia Hypoalphalipoproteinemia Migraine without aura and without status migrainosus, not intractable 05/09/2017 Mood swings MRSA (methicillin resistant Staphylococcus aureus) Narrowing of intervertebral disc space Nevus anemicus Obesity Pain in limb Seizures ([facility]) 3 mo old, 17 1/2 yrs old, [...] bilateral selective coronary angiography, placement of a 6-Spanish MynxGrip closure device. Impression: Mild disease of [...] common & proximal iliac veins.Ectrinsic compression,non-stented proximal lt.common iliac vein between rt. common iliac artery [...] congestive changes interstitial infiltrates. abdomen/plevis, mild fatty in filtration liver. Multiple gallstones-gallbladder.Likely tiny rt renal, adnexal cysts. FINE NEEDLE ASPIRATION Right 01/09/2017 Thyroid: Benign, consistent with benign follicular nodule with Hurthle cell changes. Groups of follicuar cells, show Hurthie cell changes are present, forming variable sized follicles, background of abundant peripheral blood and colloid. Increased lymphocytes, suggestive of lymphocytic thyroiditis. HYSTERECTOMY 07/29/2011 INJECTION ANESTHETIC AGENT TO CERVICAL PLEXUS [id number], 06/14/2017, 07/10/2017, 07/31/2017 Dr. Adan Julio, cervical [...] Conclusion-No clear pattern of ischemia or myocardial infarction.Abnormal left ventricular systolic function with calculated ejection fraction of 46%. No previous study available for comparison. PYLOROPLASTY 10/18/2023 [facility]- Dr. Bowling, general surgeon RADIOFREQUENCY ABLATION 10/10/2014 cervical medial branch radiofrequency ablation-cervical spondylosis ROTATOR CUFF REPAIR Left 2017 left shoulder US CAROTID DUPLEX COMP-BILAT 11/29/2016 [facility]. minimal plaques, no high grade stenosis US THYROID 12/07/2016 IMPRESSION: 2.1cm heterogeneous right mid nodule. 6 mm left midpole hypoechoic ill-defined nodule. Dr. Delvis Dominguez-[facility] US THYROID 11/21/2018 Left nodule interval enlargement [...] 60 min Stress: Stress Concern Present (04/07/2022) Citizen Of [place] [employer] Occupational Health - Occupational Stress Questionnaire Feeling of Stress : To some extent Social Connections: Unknown (04/07/2022) Social Connection and Isolation Panel [NHANES] Frequency of Communication with Friends and Family: Three times a week Frequency of Social Gatherings with Friends and Family: Patient declined Attends [employer] Services: Patient declined Active Member of Clubs or Organizations: No Attends Club or Organization Meetings: Patient declined Marital Status: Patient declined Interpersonal Safety: Unknown (04/20/2023) Received from [facility] Safety & Environment Fear of Current or [...] Inhale 2 puffs in the morning and 2puffs before bedtime. apixaban (ELIQUIS) 2.5 mg tablet [...] strip TEST BEFORE BREAKFAST AND BEDTIME 100 strip3 blood sugar diagnostic (ONETOUCH ULTRA TEST) strip 1 strip by other route in the morning and 1 strip before bedtime. 200 strip 3 blood-glucose meter (ONETOUCH ULTRA2 METER) [facility] USE TO CHECK GLUCOSE TWICE DAILY 1 [...] capsule Take 1 capsule (2,000 Units total) bymouth in the morning. 90 capsule 3 empagliflozin [...] injection Inject 0.12 mL (12 Units total) underthe skin nightly. 10 mL 1 nitrofurantoin, macrocrystal-monohydrate, [...] ) Wt 109.8 kg (242 lb) LMP (LMPUnknown) SpO2 95% BMI 39.06 kg/m Physical Exam Physical Exam Vitals reviewed. Constitutional: General: She is not in acute distress. Appearance: She is well-developed. She is obese. She is not ill-appearing or diaphoretic. Comments: Pt is calm. In NAD. Good historian, pleasant, appropriate HENT: Head: Normocephalic and atraumatic. Right Ear: Tympanic membrane and ear canal normal. No middle ear effusion. Tympanic membrane is noterythematous. Left Ear: Tympanic membrane and ear canal [...] complication, without long-term current use of insulin ([facility]) Medications Discontinued During This Encounter Medication Reason insulin glargine (LANTUS U-100 INSULIN) 100 unit/mL injection Reorder Patient Instructions Diagnosis today of Acute UTI with nitrates, protein, glucose (jardiance) which is a bladder infection with blood from unknown source. Repeat Urine specimen here at appt in 2 weeks to make sure infection [...] ER if fever > 100.5, dizziness, lightheadedness, sharppain in low back on only one side, voiding blood, chest pain, shortness of breath. Cece Hannon PA-C 08/27/24 1404 documented in this encounterOur [facility] Instructions* Patient Instructions* Cece Hannon PA-C - 08/27/2024 1:15 PM EDT Diagnosis today of Acute UTI with nitrates, protein, glucose (jardiance) which is a bladder infection with blood from unknown source. Repeat Urine specimen here at appt in 2 weeks to make sure infection [...] ER if fever > 100.5, dizziness, lightheadedness, sharppain in low back on only one side, voiding blood, chest pain, shortness of breath. documented in this encounterOur [facility] of [facility]05-30-2025 Miscellaneous Notes* Telephone Encounter - Patricia Garcia CMA - 07/26/2024 3:12 PM EDT Care Coordination Outreach performed to coordinate overdue appointments, testing, and/or follow-up care: Yes Audit/Outreach Date: July 26, 2024 Reason: Chronic Condition Appt and Medicare Annual Wellness Visit Method: Telephone Outreach Attempt: First Outcome: Left Message Next PCP Appointment: N/A Tests/Referrals Pended: N/A Resources/Education Provided: Additional Comments: Attempted to reach patient to schedule a follow up or well visit. documented in this encounterOur [facility] of [facility]05-30-2025 Telephone encounter Note* Telephone Encounter - Patricia Garcia CMA - 07/26/2024 3:12 PM EDT Care Coordination Outreach performed to coordinate overdue appointments, testing, and/or follow-up care: Yes Audit/Outreach Date: July 26, 2024 Reason: Chronic Condition Appt and Medicare Annual Wellness Visit Method: Telephone Outreach Attempt: First Outcome: Left Message Next PCP Appointment: N/A Tests/Referrals Pended: N/A Resources/Education Provided: Additional Comments: Attempted to reach patient to schedule a follow up or well visit. [facility]-05-[facility] Miscellaneous Notes* Telephone Encounter - Patricia Garcia CMA - 07/01/2024 1:41 PM EDT Care Coordination Outreach performed to coordinate overdue [...] schedule appointment. Letter sent. documented in this encounterOur [facility] of [facility]-2025 Telephone encounter Note* Telephone Encounter - Patricia Garcia CMA - 07/01/2024 1:41 PM EDT Care Coordination Outreach performed to coordinate overdue appointments, testing, and/or follow-up care: Yes Audit/Outreach Date: July 01, 2024 Reason: DM Eye Exam and Medicare Annual Wellness Visit Method: Telephone and MyChart Outreach Attempt: First Outcome: Left Message and Letter Sent Next PCP Appointment: N/A Tests/Referrals Pended: N/A Resources/Education Provided: Additional Comments: Unable to reach patient by telephone to schedule appointment. Letter sent. [facility] [employer] [id number] History of Present illness Narrative* Martine Rodriguez, (R) - 07/01/2024 8:00 AM EDT RADIOLOGY SERVICE PROGRESS NOTE SERVICE DATE: 07/01/2024 [...] PATIENT PRESENTS WITH AN IMPLANTABLE OR ATTACHED COMMANDER INTERNAL AFFAIRS: No CREATININE: Creatinine Date Value Ref Range [...] creatinine assay has traceable calibration to isotope dilution- mass spectrometry. Refer to KDIGO guidelines for clinical interpretation. In patients with unstable renal function, e.g. those with acute kidney injury, the eGFRmay not accurately reflect actual GFR. eGFR- Date [...] 08:05 PATIENT DISCHARGED TO: Ambulatory patient, left [place] department area. Is this a therapy: No A Diagnostic radioactive procedure has taken place, with no further precautions necessary other than routine body substance precautions. More information regarding radiation safety can be found usingthis link: [email or web address]%20Medicine%[email or web address] SIGNATURE: MARLEY Johnston) PATIENT NAME: Naila Beltran DATE: July 01, 2024 TIME: 8:19 AM PAGER/CONTACT #: documented in this encounterKind[facility]05-05-2025 NoteHNO ID: [id number] Author: MARTINE RODRIGUEZ RT(R) Service: Nuclear Medicine [...] PATIENT PRESENTS WITH AN IMPLANTABLE OR ATTACHED COMMANDER INTERNAL AFFAIRS: No CREATININE: Creatinine Date Value Ref Range [...] 08:05 PATIENT DISCHARGED TO: Ambulatory patient, left [place] department area. Is this a therapy: No A Diagnostic radioactive procedure has taken place, with no further precautions necessary other than routine body substance precautions. More information regarding radiation safety can be found using this link: [email or web address] SIGNATURE: RT Preston(R) PATIENT NAME: Naila Beltran DATE: July 01, 2024 TIME: 8:19 AM [phone] Telephone encounter Note* Telephone Encounter - Yas Roy CNMT - 06/28/2024 2:00 PM EDT Spoke with PT to confirm apt and to explain the exam and any prep. [facility]05-02-2025 Miscellaneous Notes* Telephone Encounter - Yas Roy CNMT - 06/28/2024 2:00 PM EDT Spoke with PT to confirm apt and to explain the exam and any prep. documented in this encounterKindred [facility]04-22-2025 NoteEducation Materials Orthopedics Pinched Nerve A pinched nerve is an injury that occurs when too much pressure is placed on a nerve. This pressurecan cause pain, burning, and muscle weakness in [...] (supportive or protective devices), such as a splint,brace, or neck collar. Other treatments depend on [...] care provider. Remove it only as told byyour health care provider. ? Check the skin around the collar, splint, or brace every day. Tell your health care provider about any concerns. ? Loosen the collar, splint, or brace if any part of your body tingles, becomes numb, or turns coldand blue. ? Keep the collar, splint or [...] of getting burned. General instructions ? Take ewel-gec-mmyxeej and prescription medicines only as told by [...] Where to find more information ? National Calvin of Neurological Disorders and Stroke: www.ninds.nih.gov Contact [...] Do not wait t (more content not included)...[facility] [id number] Note* Addendum Note - Stef Michele MD - 06/10/2024 11:19 AM EDTAddended by: STEF MICHELE on: 06/10/2024 11:19 AM Modules accepted: Orders [facility]04-14-2025 Miscellaneous Notes* Addendum Note - Stef Michele MD - 06/10/2024 11:19 AM EDTAddended by: STEF MICHELE on: 06/10/2024 11:19 AM Modules accepted: Orders documented in this encounterKindred Hospital [facility]04-14-2025 Instructions* Patient Instructions* Stef Michele MD - 06/10/2024 10:41 AM EDT F/u in 1 year Continue eliquis 2.5mg BID documented in this encounterKindred Hospital [facility]04-14-2025 History of Present illness Narrative* Stef Michele MD - 06/10/2024 10:30 AM EDT DATE OF ENCOUNTER: June 10, 2024 ATTENDING [...] bed and had warm swollen left leg. [facility] diagnosed with DVT. She was negative for [...] 6 months - 2011: Grafting done at [facility] for recurrent clots; she was on xarelto at this time. She was initially on 20 mg but had heavy and long menstrual periods needing an emergent hysterectomy and was then placed on 10 mg dosing. - 2017: Switched to low dose eliquis 2.5 mg BID for insurance reasons. LAC testing at this time wasnegative - 2019: Grafting #2 done at [facility] (Dr. Scanlon) She is on Eliquis 2.5 mg BID. She has a heart monitor per cardiology for palpitations. She denies any new clots or bleeding issues. She has vascular disease and continues to be followed and treated at [facility]. She recently had a colonoscopy and EGD [...] Intranasal Daily June 13, 2017 7:29am 06-13-2017 [facility] ([id number]) sitaGLIPtin-metFORMIN (JANUMET) 50-500 mg per tablet Take [...] 2019) follows with Dr. 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 She is now on disability since in [...] and negative other than HPI. PHYSICAL EXAM: [facility] 04/01/2011 General: Alert and oriented, no distress, [...] unremarkable. 2. Peripheral Vascular Disease Follows with [facility] (Dr. Scanlon) 3. Ischemic Vascular Disease Follows at [place] (Dr. Christy Moreland) 4. Abdominal symptoms. Follows Dr. Garcia at [facility] , now with gastroparesis See back in 1 year as planned and continue follow-up with GI as scheduled. Stef Michele MD [facility] Hematology/Oncology. CC: Dr. Shiva Garcia, DO Nguyen Cox MD I spent a total of 20 minutes on the date of the service which included preparing to see the patient, vuca-ov-kedo patient care, completing clinical documentation, performing a medically appropriate examination, counseling and educating the patient/family/caregiver, ordering medications, tests, or p rocedures, independently interpreting results (not separately reported), and communicating results to the patient/family/caregiver . documented in this encounterKindred Hospital [facility]04-14-2025 NoteHNO ID: [id number] Author: STEF MICHELE MD Service: ? Author [...] bed and had warm swollen left leg. [facility] diagnosed with DVT. She was negative for [...] 6 months - 2011: Grafting done at [facility] for recurrent clots; she was on xarelto at this time. She was initially on 20 mg but had heavy and long menstrual periods needing an emergent hysterectomy and was then placed on 10 mg dosing. - 2018: Switched to low dose eliquis 2.5 mg BID for insurance reasons. LAC testing at this time was negative - 2019: Grafting #2 done at [facility] (Dr. Scanlon) She is on Eliquis 2.5 mg BID. She has a heart monitor per cardiology for palpitations. She denies any new clots or bleeding issues. She has vascular disease and continues to be followed and treated at [facility]. She recently had a colonoscopy and EGD [...] Intranasal Daily June 13, 2017 7:29am 06-13-2017 [facility] ([id number]) sitaGLIPtin-metFORMIN (JANUMET) 50-500 mg per tablet Take [...] 2019) follows with Dr. Christy Moreland at [facility]/[place] Peripheral Vascular Disease; stents x [...] disease, diabetes, COPD F (more content not included)...[facility]03-03-2025 Telephone encounter Note* Telephone Encounter - Katja Rios RN - 04/29/2024 3:29 PM EST Please sign new order and send to clerical to schedule Katja Rios RN April 29, 2024 3:29 PM [facility]03-03-2025 Miscellaneous Notes* Telephone Encounter - Katja Rios RN - 04/29/2024 3:29 PM EST Please sign new order and send to clerical to schedule Katja Rios RN April 29, 2024 3:29 PM * Telephone Encounter - Otilia Lieberman - 04/29/2024 2:32 PM EST Patient states for the last 4 months she has been fighting sinus infections. She had scheduled the post GES studies and had to cancel it twice. They are telling her she needs a new order in the system as she states she is feeling better and feels she can do the testing now she just needs another order. documented in this encounterKindred Hospital [facility]03-03-2025 Telephone encounter Note * Telephone Encounter - Otilia Lieberman - 04/29/2024 2:32 PM EST Patient states for the last 4 months she has been fighting sinus infections. She had scheduled the post GES studies and had to cancel it twice. They are telling her she needs a new order in the system as she states she is feeling better and feels she can do the testing now she just needs another order. [facility] Work Phone: 1(866) 481-532202-20-2025 History of Present illness Narrative* Cece Hannon PA-C - 04/18/2024 10:00 AM EST Images from the original note were [...] Deep vein thrombosis (DVT) of lower extremity ([facility]) 05/25/2017 Depression Diabetic eye exam ([facility]) 06/06/2017 Dr. Hicks: diabetic retinopathy not detected-distance visual acuity:OD- 20/20, OS-20/20, re-evaluation 1 yr. Dilation of thoracic aorta ([facility]) Elevated LDL cholesterol level Eye exam, routine 08/14/2009 Dr. Hicks, presbyopia OU Fatigue Fatty liver Gallstone Gastroesophageal reflux disease without esophagitis 2020 [facility]-Dr. Garcia Generalized convulsive epilepsy ([facility]) Headache, classical migraine, intractable, with status migrainosus Dr. Julio pinched nerve in neckl Heterozygous factor V Leiden mutation ([facility]) Hypercoagulable state ([facility]) Hyperlipidemia Hypoalphalipoproteinemia Migraine without aura and without [...] bilateral selective coronary angiography, placement of a 6-Spanish MynxGrip closure device. Impression: Mild disease of [...] common & proximal iliac veins.Ectrinsic compression,non-stented proximal lt.common iliac vein between rt. common iliac artery [...] congestive changes interstitial infiltrates. abdomen/plevis, mild fatty in filtration liver. Multiple gallstones-gallbladder.Likely tiny rt renal, adnexal cysts. FINE NEEDLE ASPIRATION Right 01/09/2017 Thyroid: Benign, consistent with benign follicular nodule with Hurthle cell changes. Groups of follicuar cells, show Hurthie cell changes are present, forming variable sized follicles, background of abundant peripheral blood and colloid. Increased lymphocytes, suggestive of lymphocytic thyroiditis. HYSTERECTOMY 07/29/2011 INJECTION ANESTHETIC AGENT TO CERVICAL PLEXUS [id number], 06/14/2017, 07/10/2017, 07/31/2017 Dr. Adan Julio, cervical [...] Conclusion-No clear pattern of ischemia or myocardial infarction.Abnormal left ventricular systolic function with calculated ejection fraction of 46%. No previous study available for comparison. PYLOROPLASTY 10/18/2023 [facility] Dr. Bowling, general surgeon RADIOFREQUENCY ABLATION 10/10/2014 cervical medial branch radiofrequency ablation-cervical spondylosis ROTATOR CUFF REPAIR Left 2017 left shoulder US CAROTID DUPLEX COMP-BILAT 11/29/2016 [facility]. minimal plaques, no high grade stenosis US THYROID 12/07/2016 IMPRESSION: 2.1cm heterogeneous right mid nodule. 6 mm left midpole hypoechoic ill-defined nodule. Dr. Delvis Dominguez-[facility] US THYROID 11/21/2018 Left nodule interval enlargement [...] 60 min Stress: Stress Concern Present (04/07/2022) Citizen Of The [place] [employer]ational [employer] - Occupational Stress Questionnaire Feeling of Stress : To some extent Social Connections: Unknown (04/07/2022) Social Connection and Isolation Panel [NHANES] Frequency of Communication with Friends and Family: Three times a week Frequency of Social Gatherings with Friends and Family: Patient declined Attends Moravian Services: Patient declined Active Member of Clubs or Organizations: No Attends Club or Organization Meetings: Patient declined Marital Status: Patient declined Interpersonal Safety: Unknown (04/20/2023) Received from [facility] [place] [facility] Fear of Current [...] Inhale 2 puffs in the morning and 2puffs before bedtime. apixaban (ELIQUIS) 2.5 mg tablet [...] strip TEST BEFORE BREAKFAST AND BEDTIME 100 strip3 blood sugar diagnostic (ONETOUCH ULTRA TEST) strip 1 strip by other route in the morning and 1 strip before bedtime. 200 strip 3 blood-glucose meter (ONETOUCH ULTRA2 METER) [facility] USE TO CHECK GLUCOSE TWICE DAILY 1 each 0 cetirizine (ZyrTEC) 10 mg tablet Take 1 tablet (10 mg total) by mouth in the morning for 30 days. 30 tablet 5 cholecalciferol, vitamin D3, (VITAMIN D3) 2,000 units capsule Take 1 capsule (2,000 Units total) bymouth in the morning. 90 capsule 3 glyBURIDE (DIABETA) 5 mg tablet Take 2 tablets (10 mg total) by mouth in the morning and 2 tablets (10 mg total) in the evening. Take with meals. Do all this for 180 days. 360 tablet 1 lancets (MICROLET LANCET) [facility] TEST 2 TIMES A DAY 200 each [...] (200 mg total) by mouth 3 (three) timesa day as needed for cough for up [...] change, appetite change, fatigue, fever and unexpected weightchange. HENT: Positive for sinus pressure and sinus pain. Negative for congestion, ear pain and sore throat. Eyes: Positive for visual disturbance (right eye blurred vision/cataract). Negative for discharge and redness (resolved s/p covid). Respiratory: Negative for cough and shortness of breath. Cardiovascular: Negative for chest pain and leg swelling. Gastrointestinal: Negative for abdominal distention, abdominal pain, anal bleeding, blood in stool,constipation, diarrhea, nausea and vomiting. GI upset, chronic-seeing [...] ) Wt 109.8 kg (242 lb) LMP (LMPUnknown) SpO2 96% BMI 39.06 kg/m Physical Exam Physical Exam Vitals reviewed. Constitutional: General: She is not in acute distress. Appearance: She is well-developed. She is obese. She is not ill-appearing or diaphoretic. Comments: Pt is calm. In NAD. Good historian, pleasant, appropriate HENT: Head: Normocephalic and atraumatic. Right Ear: Tympanic membrane and ear canal normal. No middle ear effusion. Tympanic membrane is noterythematous. Left Ear: Tympanic membrane and ear canal [...] complication, without long-term current use of insulin ([facility]) - CBC auto differential; Future - Comprehensive [...] maxillary sinusitis 4. 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 SVT (supraventricular tachycardia) ([facility]) 6. Gastroparesis due to DM ([facility]) 7. Emotional instability ([facility]) 8. 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rder ([facility]) 9. Type 2 diabetes mellitus with hyperglycemia, without long-term current use of insulin ([facility]) 10. Aneurysm of ascending aorta without rupture ([facility]) 11. Seizure disorder ([facility]) 12. Hypercoagulable state ([facility]) 13. BMI 40.0-44.9, adult ([facility]) Medications Discontinued During This Encounter Medication Reason [...] Hannon PA-C 04/18/24 1113 documented in this encounterMayo Memorial HospitalKaboo Cloud Camera02-20-2025 Instructions* Patient Instructions* Cece Hannon PA-C - 04/18/2024 10:00 AM EST Fasting labs today Uncontrolled DM: -check A1C -Begin Lantus 10 Units at bedtime, rotate sites -continue jardiance 25mg and glyburide 10mg BID -Check/log sugars Sinusitis -azithromycin -Tessalon -Mucinex * Attachments The following attachments cannot be sent through Care Everywhere. * Insulin Glargine? ADULT (Tamazight) documented in this encounterBlanchard Valley Health SystemGennio [id number] NoteEducation Materials Endocrinology Hyperglycemia Hyperglycemia is when the [...] instructions at home: General instructions ? Take kkol-bvs-gxxbrpm and prescription medicines only as told by your doctor. ? Do not smoke or use any products that contain nicotine or tobacco. If you need help quitting, askyour doctor. ? If you drink alcohol: ? Limit how much you have to: ? 0?1 drink a day for women who are not . ? 0?2 drinks a day for men. ? Know how much alcohol is in a drink. In the [place] one drink equals one 12 oz bottle of beer (355mL), one 5 oz glass of wine (148 [...] drink normally. Make this plan ahead of timewith your doctor. ? Share your diabetes management plan with people in your workplace, school, and household. ? Check your pee for ketones when you are ill and as told by your doctor. ? Carry a card or wear jewelry that says that you have diabetes. Where to find more information [place] Diabetes Association: www.diabetes.org Contact a doctor if: [...] feel, or act (ment (more content not included)...[facility] [id number] Miscellaneous Notes* Telephone Encounter - Africa Allison - 02/26/2024 4:02 PM EST Was at er Monday night not feeling right blood sugar was 280 s they gave a long lasting n short lasting insulin came down to [address] recommends insulin instead of pills But bloodwork is sent to u dr roque for Monday morning * Telephone Encounter - Cece Hannon PA-C - 02/26/2024 4:02 PM EST Please schedule an ED follow-up and we will discuss diabetes tx options. * Telephone Encounter - Maryann Allison - 02/26/2024 4:02 PM EST Appt 03/04 scheduled. documented in this encounterOur [facility]12-30-[facility] Telephone encounter Note* Telephone Encounter - Africa Allison - 02/26/2024 4:02 PM EST Was at er Monday night not feeling right blood sugar was 280 s they gave a long lasting n short lasting insulin came down to 218 Er recommends insulin instead of pills But bloodwork is sent to u dr roque for Monday morning [facility] [employer] [id number] Telephone encounter Note* Telephone Encounter - Cece Hannon PA-C - 02/26/2024 4:02 PM EST Please schedule an ED follow-up and we will discuss diabetes tx options. [facility]XL Marketing [id number] Telephone encounter Note* Telephone Encounter - Maryann Allison - 02/26/2024 4:02 PM EST Appt 03/04 scheduled. [facility] [employer] [id number] NoteEducation Materials Endocrinology Hyperglycemia Drink plenty of water, [...] instructions at home: General instructions ? Take uwoo-dle-brztsaj and prescription medicines only as told by your doctor. ? Do not smoke or use any products that contain nicotine or tobacco. If you need help quitting, askyour doctor. ? If you drink alcohol: ? Limit how much you have to: ? 0?1 drink a day for women who are not . ? 0?2 drinks a day for men. ? Know how much alcohol is in a drink. In the [place] one drink equals one 12 oz bottle of beer (355mL), one 5 oz glass of wine (148 [...] drink normally. Make this plan ahead of timewith your doctor. ? Share your diabetes management plan with people in your workplace, school, and household. ? Check your pee for ketones when you are ill and as told by your doctor. ? Carry a card or wear jewelry that says that you have diabetes. Where to find more information [place] Diabetes Association: www.diabetes.org Contact a doctor if: [...] ? Your blood s (more content not included)...[facility] [id number] Telephone encounter Note* Telephone Encounter - Adele Hahn RT(R) - 02/01/2024 1:30 PM EST Spoke with patient, confirmed appointment and prep [facility]12-05-2024 Miscellaneous Notes* Telephone Encounter - Adele Hahn RT(R) - 02/01/2024 1:30 PM EST Spoke with patient, confirmed appointment and prep documented in this encounterKindred Hospital Dayton11-28-2024 NoteEducation Materials Orthopedics Wrist Pain, Adult There are [...] any changes in your symptoms. ? Take kviq-ssm-ceyzjhv and prescription medicines only as told by [...] provider. Document Revised: 11/18/2022 Document Reviewed: 11/18/2022 Unight Patient Education ? 2023 [employer].[facility] [id number] Note Education Materials Neurology Chronic Migraine Headache [...] these instructions at home: Medicines ? Take mota-izx-jeutczt and prescription medicines only as told by your doctor. ? Ask your doctor if the medicine prescribed to you requires you to avoid driving or using machinery. Lifestyle ? Do not drink alcohol. ? Do not smoke or use any products that contain nicotine or tobacco. If you need help quitting, askyour doctor. ? Get 7-9 hours of sleep [...] Headache and Migraine Patients (CHAMP): headachemigraine.org ? [place] Migraine Foundation: americanmigrainefoundation.org ? National Headache Foundation: [...] provider. Document Revised: 10/10/2022 Document Reviewed: 10/10/2022 [employer]ight Patient Education ? 2023 [employer].[facility] [id number] Telephone encounter Note* Telephone Encounter - Martine Rodriguez RT(R) - 11/06/2023 4:05 PM EDT Called Patient and went over procedure and prep for nuclear medicine scan tomorrow. [facility]09-09-2024 Miscellaneous Notes* Telephone Encounter - Martine Rodriguez RT(R) - 11/06/2023 4:05 PM EDT Called Patient and went over procedure and prep for nuclear medicine scan tomorrow. documented in this encounterKindred Hospital Dayton08-21-2024 History of Present illness Narrative* Martine Bowling MD - 10/18/2023 2:40 PM EDT VIRTUAL VISIT FOLLOW UP I had a virtual visit with [facility] today for follow up of POP [...] licensure. The patient's identity and physical location wereverified at the time of this visit. Either the patient or their legal passenger service representative has been informed of the risks and benefits of -- and alternatives to -- treatment through a remote evaluation andconsents to proceed with the evaluation remotely. During this patient visit I have spent approximately 10 minutes nsnm-pe-drxf with the patient and over half the time was devoted to counseling and/or coordination of care. We discussed in depth the possible surgical treatment of gastroparesis and options involved. documented in this encounterKindred Hospital Dayton08-21-2024 NoteHNO ID: [id number] Author: MARTINE BOWLING MD Service: ? Author [...] visit. Either the patient or their legal passenger service representative has been informed of the risks and benefits of -- and alternatives to -- treatment through a remote evaluation and consents to proceed with the evaluation remotely. During this patient visit I have spent approximately 10 minutes pjkc-im-yusu with the patient and over half the time was devoted to counseling and/or coordination of care. We discussed in depth the possible surgical treatment of gastroparesis and options involved.[facility]08-14-2024 Telephone encounter Note* Telephone Encounter - Ambar Vang RPh - 10/11/2023 2:24 PM EDT 1 year f/u in 06/21. Patient requests script be filled at [facility] since [facility] is now closing. Adams Vang PharmD, VINCENTOP [facility] Work Phone: [phone] Miscellaneous Notes* Telephone Encounter - Ambar Vang RPh - 10/11/2023 2:24 PM EDT 1 year f/u in 06/21. Patient requests script be filled at [facility] since [facility]. Adams Vang PharmD, BCOP documented in this encounterKindred Hospital Dayton06-25-2024 NoteHNO ID: [id number] Author: WALESKA OCONNOR AA Service: ? 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 The contents accurately reflect the patient's condition with the following additions or revisions since the H&P was completed. Patient denies any changes to health since last examination. Planned procedure for today is EGD Therapeutic with Endoscopic Pyloromyotomy. Medication reconciliation list reviewed in [facility]. Past medical history, past surgical history, social history and family history reviewed and updatedin [facility]. ALLERGIES Allergen Reactions Aspirin Unknown Heparin Analogues [...] DATE: August 22, 2023 TIME: 8:03 AM [facility] Work Phone: 1(246) 407-333406-25-2024 History and physical note* Howie Delong PA-C - 08/22/2023 9:30 AM EDT UPDATED HISTORY AND PHYSICAL EXAMINATION SERVICE DATE: 08/22/2023 SERVICE TIME: 8:03 AM SERVICE: General Surgery PHYSICAL EXAM MUST BE COMPLETED ON ADMISSION The History and Physical (completed in the past 30 days) has been reviewed and the patient has beenexamined. The contents accurately reflect the patient's condition with the following additions or revisions since the H&P was completed. Patient denies any changes to health since last examination. Planned procedure for today is EGD Therapeutic with Endoscopic Pyloromyotomy. Medication reconciliation list reviewed in [facility]. Past medical history, past surgical history, social history and family history reviewed and updatedin [facility]. ALLERGIES Allergen Reactions Aspirin Unknown Heparin Analogues [...] 2023 TIME: 8:03 AM documented in this encounterKindred Hospital [facility]06-25-2024 NoteHNO ID: [id number] Author: VERONICA MAO RN Service: ? Author Type: Registered Nurse Type: Nursing Progress Note Filed: 08/22/2023 08:34 Note Text: Discussed safety protocols and procedure with patient who verbalized an understandingSoSaint [facility]06-25-2024 Nurse Note* Veronica Mao RN - 08/22/2023 8:32 AM EDT Discussed safety protocols and procedure with patient who verbalized an understanding [facility]06-25-2024 Nurse Note* Veronica Mao RN - 08/22/2023 8:32 AM EDT Discussed safety protocols and procedure with patient who verbalized an understanding documented in this encounterKindred Hospital Dayton06-21-2024 Telephone encounter Note * Telephone Encounter - Katja Rios RN - 08/18/2023 4:41 PM EDT Completed pre-procedure call for patients scheduled GPOEM/POP on Monday No answer - left message on VM reminding of diet- full liquids Monday and Monday then Clears on Monday. Nothing to eat or drink after midnight office number left for return call with any questions Katja Rios RN August 18, 2023 4:43 PM [facility]06-21-2024 Miscellaneous Notes* Telephone Encounter - Katja Rios RN - 08/18/2023 4:41 PM EDT Completed pre-procedure call for patients scheduled GPOEM/POP on Monday No answer - left message on reminding of diet- full liquids Monday and Monday then Clears on Monday. Nothing to eat or drink after midnight office number left for return call with any questions Katja Rios RN August 18, 2023 4:43 PM documented in this encounterKindred Hospital Dayton06-20-2024 Nurse Note* Arian Ahmadi RN - 08/17/2023 10:36 AM EDT [facility] ENDOSCOPY PRE PROCEDURE CALL Johnna. I'm calling from [facility] endoscopy to provide you with the information for your surgery/procedure tomorrow. 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 Due to having sedation, there is no working or driving the day of the procedure. Your interstate bus driver is allowed to wait here with you or they may drop you off and come back to pick you up. Patient instructed: Do not eat anything the morning of the procedure, including gum, hard candy andmints.Yes Patient instructed not bring any valuables, jewelry, or sethi and wear comfortable clothing. Do not wear makeup, lotion, or finger dominican. Yes Patient instructed: Please bring a list [...] given Any barriers to Patient learning (confusion? Reaming Machine Operator For Plastic needed?): Patient/Patient Equal Opportunity Specialist responded appropriately on phone. Please complete your Pre-Check In paperwork in My Chart if applicable. If patient needs to reschedule please call: [phone] [facility] phone number: [phone] Type of instruction given: Verbal by telephone contact. [facility]06-20-2024 Nurse Note* Arian Ahmadi RN - 08/17/2023 10:36 AM EDT [facility] ENDOSCOPY PRE PROCEDURE CALL Johnna. I'm calling from [facility] endoscopy to provide you with the information for your surgery/procedure tomorrow. 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 Due to having sedation, there is no working or driving the day of the procedure. Your interstate bus driver is allowed to wait here with you or they may drop you off and come back to pick you up. Patient instructed: Do not eat anything the morning of the procedure, including gum, hard candy andmints.Yes Patient instructed not bring any valuables, jewelry, or sethi and wear comfortable clothing. Do not wear makeup, lotion, or finger dominican. Yes Patient instructed: Please bring a list [...] given Any barriers to Patient learning (confusion? Reaming Machine Operator For Plastic needed?): Patient/Patient Equal Opportunity Specialist responded appropriately on phone. Please complete your Pre-Check In paperwork in My Chart if applicable. If patient needs to reschedule please call: [phone] [facility] phone number: [phone] Type of instruction given: Verbal by telephone contact. documented in this [facility]Kind[facility] Telephone encounter Note * Telephone Encounter - Rosangela Matos RN - 08/16/2023 1:[address] Nguyễn's office today as well as yesterday to f/u on letter sent to see if pt requires any further Cardiac testing, left detailed message again on VM. Rosangela Matos RN August 16, 2023 1:52 PM [facility]06-19-2024 Miscellaneous Notes* Telephone Encounter - Rosangela Matos RN - 08/16/2023 1:[address] Nguyễn's office today as well as yesterday to f/u on letter sent to see if pt requires any further Cardiac testing, left detailed message again on . Rosangela Matos RN August 16, 2023 1:52 PM documented in this encounterKind[facility]06-[facility]24 Telephone encounter Note * Telephone Encounter - Casey Mcadams PA-C - 08/10/2023 4:18 PM EDT Patient confirmed receipt of MyChart message with instructions Casey Mcadams PA-C 08/10/2023 4:18 PM [facility]06-13-2024 Miscellaneous Notes* Telephone Encounter - Casey Mcadams PA-C - 08/10/2023 4:18 PM EDT Patient confirmed receipt of MyChart message with instructions Casey Mcadams PA-C 08/10/2023 4:18 PM * Telephone Encounter - Casey Mcadams PA-C - 08/10/2023 4:07 PM EDT MyChart message sent to patient with instructions. Thank you! Casey Mcadams PA-C PACC * Telephone Encounter - Katja Rios RN - 08/10/2023 4:04 PM EDT Called patient to notify - no answer Left requesting return call to discuss pre-operative instructions in regards to blood thinner Katja Rios RN August 10, 2023 4:04 PM * Telephone Encounter - Checo Spivey MD - 08/10/2023 1:53 PM EDT That should be fine. Thanks * Telephone Encounter - Checo Spivey MD - 08/10/2023 1:00 PM EDT 2 days hold should be fine * Telephone Encounter - Casey Mcadams PA-C - 08/10/2023 12:[address] Spivey, This patient was seen by me for virtual PACC for upcoming EGD with endoscopic per oral pyloromyotomy scheduled with Dr. Bowling on 08/21 at [facility]. Patient is on Eliquis for Factor V Leiden, h/o recurrent DVT and states she has a chronic left leg DVT (I am unable to find US report). Is she permitted to hold Eliquis for 2-3 days prior to procedure? Thank you for your time and help, Casey Mcadams PA-C PACC documented in this encounterKindred [facility]06-[facility]24 Telephone encounter Note * Telephone Encounter - Casey Mcadams PA-C - 08/10/2023 4:07 PM EDT [email or web address] message sent to patient with instructions. Thank you! Casey Mcadams PA-C PACC [facility]06-13-2024 Telephone encounter Note* Telephone Encounter - Katja Rios RN - 08/10/2023 4:04 PM EDT Called patient to notify - no answer Left VM requesting return call to discuss pre-operative instructions in regards to blood thinner Katja Rios RN August 10, 2023 4:04 PM [facility]06-13-2024 NoteHNO ID: [id number] Author: VERONICA QUILES DO Service: ? Author Type: Physician Type: Progress Notes Filed: 08/10/2023 15:39 Note Text:[facility]06-13-2024 History of Present illness Narrative* Veronica Quiles DO - 08/10/2023 3:38 PM EDT Images from the original note were not included. documented in this encounterKindred [facility]06-13-2024 Telephone encounter Note * Telephone Encounter - Checo Spivey MD - 08/10/2023 1:53 PM EDT That should be fine. Thanks [facility] Work Phone: [phone] Telephone encounter Note* Telephone Encounter - Checo Spivey MD - 08/10/2023 1:00 PM EDT 2 days hold should be fine [facility]06-13-2024 Telephone encounter Note* Telephone Encounter - Casey Mcadams PA-C - 08/10/2023 12:[address] Spivey, This patient was seen by me for virtual PACC for upcoming EGD with endoscopic per oral pyloromyotomy scheduled with Dr. Bowling on 08/21 at [facility]. Patient is on Eliquis for Factor V Leiden, h/o recurrent DVT and states she has a chronic left leg DVT (I am unable to find US report). Is she permitted to hold Eliquis for 2-3 days prior to procedure? Thank you for your time and help, Casey Mcadams PA-C PACC [facility]06-12-2024 Instructions* Patient Instructions* Casey Mcadams PA-C - 08/09/2023 2:02 PM EDT PATIENT PREOPERATIVE INSTRUCTIONS Martine Bowling MD has scheduled you for your procedure at this surgery center: [facility]: [phone] -- [place] [phone]. Please read below carefully for your personalized [...] or other anticoagulants without consulting with your arranging funeral director or prescribing physician. - Stop Vitamin E, [...] Procedures: - YOU MUST HAVE A RESPONSIBLE ENERGY AUDITOR TAKE YOU HOME. A ANESTHESIA ASSOCIATE OR LOW HEEL BUILDER CANNOT BE MADE A RESPONSIBLE ENERGY AUDITOR. - We recommend that a responsible person stays with you overnight to take care of you. - You cannot stay in a hotel alone after outpatient surgery. You will not be permitted to have yoursurgery, if you do not have someone to [...] Advance Directive, please fax a copy to [phone] or email to for it to be added to your chart. If you do not have an Advance Directive, you can find the appropriate form and more information at [email or web address]. We recommend that youcomplete the Advance Directive form found on the website and bring it with you the day of your surgery. It can be witnessed and scanned into your chart that day. Casey Mcadams PA-C documented in this encounterKindred [facility]06-[facility]-2024 History and physical note * Casey Mcadams PA-C - 08/09/2023 1:30 PM EDT PREANESTHESIA CONSULT CLINIC TELEHEALTH VISIT Patient has been identified by name and date of : Yes This is a virtual visit using [employer] Zoom Video Visit. It require patient- provider interaction forthe medical decision making as documented below. Reason for contact: PACC visit Accompanied by: Self Scheduled Surgery: EGD with endoscopic per oral pyloromyotomy I have communicated my name and active licensure. The patient's identity and physical location wereverified at the time of this visit. Either the patient or their legal passenger service representative has been informed of the risks and benefits of -- and alternatives to -- treatment through a remote evaluation andconsents to proceed with the evaluation remotely. ASSESSMENT: 1. Preop examination Scheduled for above procedure 2. Neck pain Patient reports she has a pinched nerve in her neck. She denies numbness/tingling with neck ROM 3. Ascending aorta dilation (HCC) 4.4 cm ascending aortic aneurysm. Stable per arranging funeral director Dr. Nguyễn's note with plan for yearlyfollow-up echo 4. Gastroesophageal reflux disease, unspecified whether esophagitis present Takes Prevacid prn. Patient states that coca-cola and peppermints are helpful for symptoms. See HPI 5. Gastroparesis due to DM ([facility]) ([facility]) See HPI. Scheduled for above procedure. Patient will be NPO after midnight and will follow surgeon's pre-op dietary instructions 6. Hereditary coagulation factor deficiency ([facility]) Anticoagulated Patient is heterozygous for factor V [...] spirometry. Stable. 10. PVD (peripheral vascular disease) ([facility]) History of stents and x2 lower extremity bypass procedures. She will continue 81 mg aspirin for procedure. 11. History of DVT (deep vein thrombosis) Patient has had multiple DVTs. Her last acute DVT was ~2019. Patient denies acute symptoms. She mentions she has a chronic left leg DVT. She is on Eliquis. 12. Diabetes mellitus type 2 ([facility]) On Glyburide and Janumet. Patient's most recent Hgb A1C was 7.4% on 06/28/2023. Labs within PACC guidelines to proceed. 13. Anxiety 14. PTSD On Buspar tid which is helpful. Patient denies SI/HI. Patient admits to PTSD. She denies triggers we should be aware of for her procedure. 15. Seizure disorder ([facility]) Controlled on Keppra. Patient reports last seizure was about 6-8 years ago. Stable per patient. METS: Walk a block or two on level ground (2.75 METs) Climb a flight of stairs or walk up a hill (5.50 METs) Patient denies any chest pain or undue shortness of breath with the above physical activity. Goes to [place] sometimes, active and cares for 2 year old grandchild, but admits to chronic MIRELES. She might use her inhaler if climbing the stairs She admits to occasional resting dull achy chest pain after activity ANESTHESIA FINDINGS: Intubation History: No history of difficult intubation Significant Anesthesia Considerations: Difficult IV/Vein Access: has small and rolling veins, oftenneeds small needle Airway Exam: General: Obese Mallampati [...] Anticoagulated Hld (Hyperlipidemia) Coronary Artery Disease of [place] Artery of [place] Heart With Stable Angina Pectoris (Hcc) Diabetes [...] HISTORY Diagnosis Date Coronary artery disease involving [place] coronary artery of [place] heart without angina pectoris 02/06/2020 Depression DVT of leg (deep venous thrombosis) (HCC) Gastroparesis History of blood transfusion x 3- no reactions History of COVID-19 03/04/2020 Seizures (HCC) Type 2 diabetes mellitus without complication, without long-term current use of insulin (HCC) 02/06/2020 PAST SURGICAL HISTORY Procedure Laterality Date HYSTERECTOMY HX LAPAROSCOPIC CHOLECYSTECTOMY 03/16/2020 LOWER EXTREMITY MAINSPRING WINDER / STENT left thigh x 2 PAST [...] Intranasal Daily June 13, 2017 7:29am 06-13-2017 [facility] ([id number]) sitaGLIPtin-metFORMIN (JANUMET) 50-500 mg per tablet Take [...] COVID-19 Immunization Status Overdue - Covid-19 Vaccine (2022- season) Overdue since 10/28/2022 12/31/2020 Imm Admin: [...] leiden, HTN, HLD, lymphedema, Negative for Recent DE, Angina, Chest Pain, CHF, Valvular Heart Disease [...] -states has pinched nerve. Occasional sciatica. Denies numbness/tinglingwith neck ROM Skin: Negative for lesions, rash [...] 15 ml/beats, which is normal. Breathing reserve was78% or 59 liters, which is normal. This [...] and PACs noted. No SVT, NSVT, AF orsignificant arrhythmias seen. ECG 09/18/2020: sinus bradycardia, otherwise [...] cardiology CONSULTS: Letter will be faxed to arranging funeral director Dr. Nguyễn to ensure optimized to proceed [...] follow-up in 6 months, preferably with a [id number] visit Follow up in about 6 months [...] provided 2. Peripheral Vascular Disease Follows with [facility] (Dr. Scanlon) 3. Ischemic Vascular Disease Follows at [place] (Dr. Christy Moreland) 4. Abdominal symptoms. Follows Dr. Garcia at [facility] , now with gastroparesis See back in [...] above. Patient declined PCN allergy testing SIGNATURE: Csaey Mcadams PA-C PATIENT NAME: Naila Beltran DATE: 08/09/2023 TIME: 1:30 PM PAGER/CONTACT #: [facility]06-12-2024 History and physical note* Casey Mcadams PA-C - 08/09/2023 1:30 PM EDT PREANESTHESIA CONSULT CLINIC TELEHEALTH VISIT Patient has been identified by name and date of : Yes This is a virtual visit using [employer] Zoom Video Visit. It require patient- provider interaction forthe medical decision making as documented below. Reason for contact: PACC visit Accompanied by: Self Scheduled Surgery: EGD with endoscopic per oral pyloromyotomy I have communicated my name and active licensure. The patient's identity and physical location wereverified at the time of this visit. Either the patient or their legal passenger service representative has been informed of the risks and benefits of -- and alternatives to -- treatment through a remote evaluation andconsents to proceed with the evaluation remotely. ASSESSMENT: 1. Preop examination Scheduled for above procedure 2. Neck pain Patient reports she has a pinched nerve in her neck. She denies numbness/tingling with neck ROM 3. Ascending aorta dilation (HCC) 4.4 cm ascending aortic aneurysm. Stable per arranging funeral director Dr. Nguyễn's note with plan for yearlyfollow-up echo 4. Gastroesophageal reflux disease, unspecified whether [...] spirometry. Stable. 10. PVD (peripheral vascular disease) ([facility]) History of stents and x2 [...] of for her procedure. 15. Seizure disorder (HCC) Controlled on Keppra. Patient reports last seizure was about 6-8 years ago. Stable per patient. METS: Walk a block or two on level ground (2.75 METs) Climb a flight of stairs or walk up a hill (5.50 METs) Patient denies any chest pain or undue shortness of breath with the above physical activity. Goes to [place] sometimes, active and cares for 2 year old grandchild, but admits to chronic MIRELES. She might use her inhaler if climbing the stairs She admits to occasional resting dull achy chest pain after activity ANESTHESIA FINDINGS: Intubation History: No history of difficult intubation Significant Anesthesia Considerations: Difficult IV/Vein Access: has small and rolling veins, oftenneeds small needle Airway Exam: General: Obese Mallampati [...] Anticoagulated Hld (Hyperlipidemia) Coronary Artery Disease of [place] Artery of [place] Heart With Stable Angina Pectoris (Hcc) Diabetes [...] HISTORY Diagnosis Date Coronary artery disease involving [place] coronary artery of [place] heart without angina pectoris 02/06/2020 Depression DVT of leg (deep venous thrombosis) (HCC) Gastroparesis History of blood transfusion x 3- no reactions History of COVID-19 03/04/2020 Seizures ([facility]) Type 2 diabetes mellitus without complication, without long-term current use of insulin ([facility]) 02/06/2020 PAST SURGICAL HISTORY Procedure Laterality Date HYSTERECTOMY HX LAPAROSCOPIC CHOLECYSTECTOMY 03/16/2020 LOWER EXTREMITY MAINSPRING WINDER / STENT left thigh x 2 PAST [...] Intranasal Daily June 13, 2017 7:29am 06-13-2017 [facility] ([id number]) sitaGLIPtin-metFORMIN (JANUMET) 50-500 mg per tablet Take [...] leiden, HTN, HLD, lymphedema, Negative for Recent DE, Angina, Chest Pain, CHF, Valvular Heart Disease [...] -states has pinched nerve. Occasional sciatica. Denies numbness/tinglingwith neck ROM Skin: Negative for lesions, rash [...] 15 ml/beats, which is normal. Breathing reserve was78% or 59 liters, which is normal. This [...] and PACs noted. No SVT, NSVT, AF orsignificant arrhythmias seen. ECG 09/18/2020: sinus bradycardia, otherwise [...] cardiology CONSULTS: Letter will be faxed to arranging funeral director Dr. Nguyễn to ensure optimized to proceed [...] follow-up in 6 months, preferably with a ebut-ub-farq visit Follow up in about 6 months [...] provided 2. Peripheral Vascular Disease Follows with [facility] (Dr. Scanlon) 3. Ischemic Vascular Disease Follows at [place] (Dr. Christy Moreland) 4. Abdominal symptoms. Follows Dr. Garcia at [facility] , now with gastroparesis See back in [...] 1:30 PM PAGER/CONTACT #: documented in this encounterKindred [facility]06-[facility]-2024 NoteHNO ID: [id number] Author: CAROL COTTRELL, PhD Service: ? Author Type: Psychologist Type: Progress Notes Filed: 08/02/2023 17:01 Note Text: ``Behavioral [facility] [place] Name: Naila Beltran MR#: [id number] Date: 08/02/2023 Time: ? hour Referred by: [...] their use. Follow-up was discussed. Carol Liang, Ph.D.[facility]06-05-2024 History of Present illness Narrative* Carol Cottrell, PhD - 08/02/2023 4:55 PM EDT ``[facility] Disease [facility] [place] Name: Naila Beltran MR#: [id number] Date: 08/02/2023 Time: hour Referred by: Dr. Quiles Reason for Referral: gastroparesis interdisciplinary clinic - address psychological factors as theyaffect physical condition Information relayed back to referral [...] She was given the website for the [facility] and shown the relaxation recordings with the recommendation to practice this and the rationale behind their use. Follow-up was discussed. Carol Liang, Ph.D. documented in this encounterKindred Hospital [facility]06-[facility]-2024 Nurse Note* Celeste Vásquez LPN - 08/02/2023 4:12 PM EDT ELECTROGASTROGRAPY W/ TEST Operation / Procedure performed 500 cc water intake [facility]06-05-2024 Nurse Note* Celeste Vásquez LPN - 08/02/2023 4:12 PM EDT ELECTROGASTROGRAPY W/ TEST Operation / Procedure performed 500 cc water intake documented in this encounterKindred Hospital [facility]06-05-2024 NoteHNO ID: [id number] Author: KATJA RIOS RN Service: ? Author Type: Registered Nurse Type: Progress Notes Filed: 08/02/2023 14:00 Note Text: Patient scheduled for GPOEM/POP Post procedure virtual visit scheduled Aware of need for [facility] PACC Pre and post POP instructions discussed in detail with written copy provided Katja Rios RN August 02, 2023 2:00 [facility]06-05-2024 History of Present illness Narrative* Katja Rios RN - 08/02/2023 2:00 PM EDT Patient scheduled for GPOEM/POP Post procedure virtual visit scheduled Aware of need for [facility] PACC Pre and post POP instructions discussed in detail with written copy provided Katja Rios RN August 02, 2023 2:00 PM * Martine Bowling MD - 08/02/2023 1:00 PM EDT Assessment ASSESSMENT 52 year old female with medical refractory gastroparesis. PLAN I discussed surgical therapy for gastroparesis in detail. Naila Beltran is candidate for G-POEM/POP(Per-Oral Pyloromyotomy) Will need to hold Anticoagulation The patient was warned about possible complications from the POP procedure including but not limited to increased nausea, vomiting, bloating, abdominal pain, ulcers and bleeding, increased diarrhea to the point of urgency or even stool incontinence, and finally gastric perforation. They agree to proceed with the procedure. NAME: Naila Beltran CLINIC NO: [id number] DATE OF SERVICE: August 01, 2023 This [...] to 3 days without a BM Started onAmitiza today by Dr Quiles Pain: Constant LLQ [...] HISTORY Diagnosis Date Coronary artery disease involving [place] coronary artery of [place] heart without angina pectoris 02/06/2020 Depression DVT [...] Intranasal Daily June 13, 2017 7:29am 06-13-2017 [facility] ([id number]) sitaGLIPtin-metFORMIN (JANUMET) 50-500 mg per tablet Take [...] DVT/PE GI: See HPI : See HPI [employer]: Negative for abnormal vaginal bleeding, abnormal vaginal [...] - No LE Edema documented in this encounterKindred Hospital [facility]06-05-2024 NoteHNO ID: [id number] Author: MARTINE BOWLING MD Service: ? Author [...] the procedure. NAME: Naila Beltran CLINIC NO: [id number] DATE OF SERVICE: August 01, 2023 This [...] HISTORY Diagnosis Date Coronary artery disease involving [place] coronary artery of [place] heart without angina pectoris 02/06/2020 Depression DVT [...] infusion, injection of (more content not included)... [facility]06-05-2024 Nurse Note* Jessica Mendez MA - 08/02/2023 12:55 PM EDT What is the reason for your visit today? New gp Who is your referring physician? Cece hannon Are you having poor oral intake? YES Have you had unintentional weight loss of 15 lbs/7 Kg in the last 3-6 months? NO Bowels: diarrhea Wound: clean & dry Temperature: No Drains: No [facility]-05-2024 Nurse Note* Jessica Mendez MA - 08/02/2023 12:55 PM EDT What is the reason for your visit today? New gp Who is your referring physician? Cece hannon Are you having poor oral intake? YES Have you had unintentional weight loss of 15 lbs/7 Kg in the last 3-6 months? NO Bowels: diarrhea Wound: clean & dry Temperature: No Drains: No * Celeste Vásquez LPN - 08/02/2023 9:28 AM EDT What is the reason for your visit today? new Who is your referring physician? pcp Are you having poor oral intake? NO Have you had unintentional weight loss of 15 lbs/7 Kg in the last 3-6 months? NO Bowels: constipated Wound: n/a Temperature: No Drains: No documented in this encounterKindred [facility]06-[facility] History of Present illness Narrative* Veronica Quiles, - 08/02/2023 10:00 AM EDT GASTROPARESIS CONSULT Patient is referred by Dr. [...] and legs. Denies being on any GLP-1 ReptorAgnotists for DM management. Abd pain is intermittent with certain foods. Diarrhea and constipationalternate. Failed Miralax and Dulcolax. Takes Peppermint for [...] Medications - Does the patient see a paintings restorer for chronic abdominal pain?yes for neck - [...] - Has the patient met with a insect control aide for diet recommendations with Gastroparesis? No - [...] SURGICAL HISTORY OF bladder/urethra surgery as infant Current Outpatient Medications Medication Sig Dispense Refill [...] Intranasal Daily June 13, 2017 7:29am 06-13-2017 [facility] ([id number]) sitaGLIPtin-metFORMIN (JANUMET) 50-500 mg per tablet Take [...] No history of dysuria, frequency or incontinence [employer]: Negative for abnormal vaginal bleeding, abnormal vaginal [...] speech normal, mental status intact, cranial nerves 2- 12 intact Plan Given the risk of autoimmune [...] Veronica Quiles DO 07/19/2023 documented in this encounterKindred [facility]06-[facility]-2024 NoteHNO ID: [id number] Author: VERONICA QUILES DO Service: ? Author Type: Physician Type: Progress Notes Filed: 08/02/2023 09:54 Note Text: GASTROPARESIS CONSULT Patient is referred by Dr. eCce Hannon for an opinion regarding GP and [...] Medications - Does the patient see a paintings restorer for chronic abdominal pain?yes for neck - [...] - Has the patient met with a insect control aide for diet recommendations with Gastroparesis? No - [...] gastric retention values: * (more content not included)...[facility]06-05-2024 Nurse Note * Celeste Vásquez LPN - 08/02/2023 9:28 AM EDT What is the reason for your visit today? new Who is your referring physician? pcp Are you having poor oral intake? NO Have you had unintentional weight loss of 15 lbs/7 Kg in the last 3-6 months? NO Bowels: constipated Wound: n/a Temperature: No Drains: No [facility]05-28-2024 Telephone encounter Note* Telephone Encounter - Vu Ventura RN - 07/25/2023 4:17 PM EDT SPECIALTY CARE COORDINATION CHART REVIEW Contacted patient [...] Message and call back number provided. Vu Ventura RN July 25, 2023 [facility]05-28-2024 Miscellaneous Notes* Telephone Encounter - Vu Ventura RN - 07/25/2023 4:17 PM EDT SPECIALTY CARE COORDINATION CHART REVIEW Contacted patient [...] Message and call back number provided. Vu Ventura RN July 25, 2023 documented in this encounter[facility]05-[facility]24 Procedure [facility]04[facility]16[facility]24 NoteHNO ID: [id number] Author: GARDENIA GUPTA PA-C Service: ? Author Type: Physician Trade Show Specialist Type: Progress Notes Filed: 06/13/2023 15:37 Note [...] bed and had warm swollen left leg. [facility] diagnosed with DVT. She was negative for [...] 6 months - 2011: Grafting done at [facility] for recurrent clots; she was on xarelto at this time. She was initially on 20 mg but had heavy and long menstrual periods needing an emergent hysterectomy and was then placed on 10 mg dosing. - 2017: Switched to low dose eliquis 2.5 mg BID for insurance reasons. LAC testing at this time was negative - 2018: Grafting #2 done at [facility] (Dr. Scanlon) She is on Eliquis 2.5 mg BID. She has a heart monitor per cardiology for palpitations. She denies any new clots or bleeding issues. She has vascular disease and continues to be followed and treated at [facility]. She recently had a colonoscopy and EGD [...] Intranasal Daily June 13, 2017 7:29am 06-13-2017 [facility] ([id number]) sitaGLIPtin-metFORMIN (JANUMET) 50-500 mg per tablet Take [...] 2019) follows with Dr. Christy Moreland at [facility]/[place] Peripheral Vascular Disease; stents x [...] COPD Father with h (more content not included)...[facility]04-16-2024 History of Present illness Narrative* Gardenia Gupta PA-C - 06/13/2023 3:18 PM EDT DATE OF ENCOUNTER: June 13, 2023 ATTENDING PHYSICIAN: Dr. Spivey (Elements copied from Dr. Spivey's note dated June 03, 2022, have been reviewed and updated whereappropriate, and all reflect current assessment and medical decision making during today's encounter, June 13, 2023) CC: Follow up HPI Naila Beltran is a 52 year old female who presents in follow up with a hypercoagulable state. - August 2008: She woke up from bed and had warm swollen left leg. [facility] diagnosed with DVT. She was negative for [...] 6 months - 2011: Grafting done at [facility] for recurrent clots; she was on xarelto at this time. She was initially on 20 mg but had heavy and long menstrual periods needing an emergent hysterectomy and was then placed on 10 mg dosing. - 2018: Switched to low dose eliquis 2.5 mg BID for insurance reasons. LAC testing at this time wasnegative - 2019: Grafting #2 done at [facility] (Dr. Scanlon) She is on Eliquis 2.5 mg BID. She has a heart monitor per cardiology for palpitations. She denies any new clots or bleeding issues. She has vascular disease and continues to be followed and treated at [facility]. She recently had a colonoscopy and EGD [...] Intranasal Daily June 13, 2017 7:29am 06-13-2017 [facility] ([id number]) sitaGLIPtin-metFORMIN (JANUMET) 50-500 mg per tablet Take [...] 2019) follows with Dr. 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 She is now on disability since in [...] provided 2. Peripheral Vascular Disease Follows with [facility] (Dr. Scanlon) 3. Ischemic Vascular Disease Follows at [place] (Dr. Christy Moreland) 4. Abdominal symptoms. Follows Dr. Garcia at [facility] , now with gastroparesis See back in 1 year as planned and continue follow-up with GI as scheduled. Gardenia Gupta PA-C CC: Dr. Shiva Garcia, DO Nguyen Cox MD I spent a total of 20 minutes on the date of the service which included preparing to see the patient, [id number] patient care, completing clinical documentation, performing a medically appropriate examination, counseling and educating the patient/family/caregiver, ordering medications, tests, or p rocedures, independently interpreting results (not separately reported), and communicating results to the patient/family/caregiver . 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 A Diagnostic radioactive procedure has taken place, with no further precautions necessary other than routine body substance precautions. More information regarding radiation safety can be found usingthis link: [email or web address] SIGNATURE: RT Ruben(R) PATIENT NAME: Naila Beltran DATE: May 18, 2023 TIME: 10:11 AM PAGER/CONTACT #: documented in this encounterKindred [facility]03-20-2024 Miscellaneous Notes* Telephone Encounter - Yumiko Tong RT(R) - 05/17/2023 5:42 PM EDT No answer so left voice mail. Asked her to arrive by 9:45. Explained test, length, prep and restrictions. Left department number in case she has questions. documented in this encounterKind[facility]12-04-2023 Evaluation note* Encounter Date Diagnosis Assessment Notes Treatment Notes Treatment Clinical Notes Jan, GERD (gastroesophageal reflux di sease) (ICD-10 - K21.9) Jan,astroparesis (ICD-10 - K31.84) [email or web address] Other 09-13-2023 Evaluation note* Encounter Date Diagnosis Assessment Notes Treatment Notes Treatment Clinical Notes Oct, Tear of right hamstring (ICD-10 - S76.311A) Naila presents with right hamstring tear. At this juncture we have discussed the findings and diagnosis as well as personally reviewed appropriate imaging and performed interpretation of related testing and examination with the patient in office today. Prior medical notes from [place] ED and history have been reviewed. At this time I would recommend conservative treatment. Anti- inflammatories along with an order for physical therapy given. Home exercise program given as well. We will plan for follow-up 6 weeks for recheck. The patient has been involved in our cooperative treatment plan and agrees to move forward with treatment at this time. Patient appears to have experienced a hamstring tear. Instructed on motion and strengthening exercises. Formal therapy order provided. Oct,OtherSee orders for this visit as documented in the electronic medical record. [email or web address] Other 04-07-2023 History of Present illness Narrative* Checo Spivey MD - 06/03/2022 2:44 PM EDT DATE OF ENCOUNTER: June 03, 2022 ATTENDING PHYSICIAN: Dr. Spivey CC: Follow up HPI Naila Beltran is a 51 year old female who presents in follow up with a hypercoagulable state. - August 2008: She woke up from bed and had warm swollen left leg. [facility] diagnosed with DVT. She was negative for [...] 6 months - 2011: Grafting done at [facility] for recurrent clots; she was on xarelto at this time. She was initially on 20 mg but had heavy and long menstrual periods needing an emergent hysterectomy and was then placed on 10 mg dosing. - 2018: Switched to low dose eliquis 2.5 mg BID for insurance reasons. LAC testing at this time wasnegative - 2019: Grafting #2 done at [facility] (Dr. Scanlon) She is on Eliquis 2.5 mg BID. She has vascular disease and continues to be followed and treated at [facility]. She recently had a colonoscopy and EGD [...] Intranasal Daily June 13, 2017 7:29am 06-13-2017 [facility] ([id number]) fluticasone-vilanterol (BREO ELLIPTA) 200-25 mcg/dose inhaler inhale [...] 2019) follows with Dr. 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 Peripheral Vascular Disease Follows with [facility] (Dr. Scanlon) 3. Ischemic Vascular Disease Follows at [place] (Dr. Christy Moreland) 4. Abdominal symptoms. Follows Dr. Garcia at [facility] See back in 1 year as planned and continue follow-up with GI as scheduled. CC: Dr. Shiva Garcia, DO Nguyen Cox MD documented in this encounterKindred [facility]01-27-2023 History of Present illness Narrative* Shiva Garcia [...] HISTORY Diagnosis Date Coronary artery disease involving petersburg coronary artery of [place] heart without angina pectoris 02/06/2020 Depression DVT of leg (deep venous thrombosis) (HCC) History of blood transfusion x 3- no [...] SURGICAL HISTORY OF bladder/urethra surgery as infant Current Outpatient Medications on File Prior to [...] Intranasal Daily June 13, 2017 7:29am 06-13-2017 [facility] ([id number]) fluticasone-vilanterol (BREO ELLIPTA) 200-25 mcg/dose inhaler inhale [...] Stop metoclopramide and colestipol. Obtain records from [facility]. 1. Generalized abdominal pain - ICD9: [...] Levbid Shiva Garcia Jr. documented in this encounterKindred [facility]01-27-2023 Instructions* Patient Instructions* Shiva Garcia Jr., DO - 03/25/2022 1:[address] scan Start Levbid, lansoprazole, and Zofran Stop Reglan (metoclopramide), colestipol, and dicyclomine documented in this encounterKindred Hospital [facility]10-06-2022 Evaluation + Plan note Future Scheduled Tests Radiology* US LE Venous Duplex Bilateral 12/02/21 [facility]08-02-2022 Evaluation note* Encounter Date Diagnosis Assessment Notes Treatment Notes Treatment Clinical Notes Sep, Irritable bowel syndrome with di arrhea (ICD-10 - K58.0) [email or web address] Other 04-25-2022 Evaluation note* Encounter Date Diagnosis Assessment Notes Treatment Notes Treatment Clinical Notes May, Diarrhea (ICD-10 - R19.7) May,bdominal pain (ICD-10 - R10.9) [email or web address] Other 04-19-2022 Evaluation note* Encounter Date Diagnosis Assessment Notes Treatment Notes Treatment Clinical Notes May, Irritable bowel syndrome with di arrhea (ICD-10 - K58.0) [email or web address] Other 04-07-2022 Evaluation note* Encounter Date Diagnosis Assessment Notes Treatment Notes Treatment Clinical Notes May, GERD (gastroesophageal reflux di sease) (ICD-10 - K21.9) [email or web address] Other 03-31-2022 Evaluation note* Encounter Date Diagnosis Assessment Notes Treatment Notes Treatment Clinical Notes Apr, Abdominal pain (ICD-10 - R10.9) Apr,Irritable bowel syndrome with diarrhea (ICD-10 - K58.0) Apr,GERD (gastroesophageal reflux disease) (ICD-10 - K21.9) STOP CARAFATE AND PANTOPRAZOLE PT TO REPORT PROGRESS [email or web address] Other 03-31-2022 History of Present illness Narrative* [...] bed and had warm swollen left leg. [facility] diagnosed with DVT. She was negative for [...] 6 months - 2011: Grafting done at [facility] for recurrent clots; she was on xarelto at this time. She was initially on 20 mg but had heavy and long menstrual periods needing an emergent hysterectomy and was then placed on 10 mg dosing. - 2017: Switched to low dose eliquis 2.5 mg BID for insurance reasons. LAC testing at this time wasnegative - 2019: Grafting #2 done at [facility] (Dr. Scanlon) The patient's last visit here was December 2019. Since that times, she had a cholecystectomy in March 2020. She has also continues to see Dr. Garcia for her ongoing abdominal discomfort and is on colestipol and protonix. She is awaiting a referral to gynecology as well for her lower pelvic pain. She continues to follow with her Sales Representative Supervisor for her diabetes and has had some [...] Intranasal Daily June 13, 2017 7:29am 06-13-2017 [facility] ([id number]) fluticasone-vilanterol (BREO ELLIPTA) 200-25 mcg/dose inhaler inhale [...] 2019) follows with Dr. 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 Peripheral Vascular Disease Follows with [facility] (Dr. Scanlon) 3. Ischemic Vascular Disease Follows at [place] (Dr. Christy Moreland) 4. Abdominal symptoms. Question related to underlying vascular disease. Continues to follow with GI. Awaiting gynecology referal per [facility] GI department. Discussed our role of monitoring her for symptoms related to Factor V Leiden and mediation management of Eliquis. Will see her yearly for follow up. Gardenia Gupta PA-C CC: Dr. Shiva Garcia, DO Nguyen Cox MD documented in this encounterKindred [facility]12-09-2021 Evaluation note* Encounter Date Diagnosis Assessment Notes Treatment Notes Treatment Clinical Notes Jan, Abdominal pain (ICD-10 - R10.9) Jan,Irritable bowel syndrome with diarrhea (ICD-10 - K58.0) STOP DICYCLOMINE START COLESTIPOL Jan,GERD (gastroesophageal reflux disease) (ICD-10 - K21.9) INCREASE PANTOPRAZOLE TO 40MG BID FOLLOW UP IN 8 WEEKS [email or web address] Other 11-10-2021 Evaluation note* Encounter Date Diagnosis Assessment Notes Treatment Notes Treatment Clinical Notes Dec, Pain of cervical spine (ICD-10 - M54.2) Dec,Osteoarthritis of cervical spine without myelopathy (ICD-10 - [...] and benefits of procedure explained to patient; additionallytheoretical risks related to the COVID 19 pandemic were discussed, patient verbalizes understandingand consent was signed. It was discussed in detail, along with providing written instructions, for the patient to discuss and receive permission to stop their anticoagulation from their prescribing provider prior to each procedure. Additionally, the patient agrees to fully understand and accept thepotential risks of stopping this medication prior to doing so. Dec,Other chronic pain (ICD-10 - G89.29) Dec,OtherAbove note written by Scarlett Vu CMA, Tape Recording Machine Operator. Edited and approved by Dr. Adan Julio MD. [email or web address] Other Evaluation + Plan note Future Appointments Appointment Date:06/03/2024 08:30:00 AM Scheduled Provider:Yanni Nassar MD Location:[facility] Appointment Type:Vascular Follow Up ([place]) [facility] Evaluation + Plan note Future Appointments Appointment Date:12/23/2024 09:00:00 AM Scheduled Provider:Yanni Nassar MD Location:.Vascular Clinic Appointment Type:Vascular Follow Up ([place]) [facility] Evaluation note* Diagnosis Hypercoagulable state (HCC)- Primary Primary hypercoagulable state Vascular disease Unspecified circulatory system disorder documented in this encounter [facility] noteNo InformationN[employer] Other Evaluation noteNo assessment information available [facility] Work Phone: Evaluation note* Diagnosis Gastroparesis due to DM (HCC)- Primary Type II or unspecified type diabetes mellitus with neurological manifestations, not stated as uncontrolled Generalized abdominal pain Abdominal pain, generalized Gastroesophageal reflux disease with esophagitis without hemorrhage Irritable bowel syndrome with both constipation and diarrhea documented in this [facility]* Diagnosis Hypercoagulable state (HCC)- Primary Primary hypercoagulable state [facility]* Diagnosis Hypercoagulable state (HCC)- Primary Primary hypercoagulable state Hereditary coagulation factor deficiency (HCC) Other and unspecified coagulation defects 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rder (HCC) Obesity, Class III, BMI 40-49.9 (morbid obesity) (HCC) Morbid obesity Gastroparesis due to DM (HCC) (HCC) Type II or unspecified type diabetes mellitus with neurological manifestations, not stated as uncontrolled [facility]* Diagnosis Onset Date Resolution Status Chronic pain acuteOsteoarthritis of cervical spine without myelopathyacutePain of cervical spineacute [facility] Work Phone: Evaluation note* Diagnosis Gastroparesis- Primary Irritable bowel syndrome with both constipation and diarrhea documented [facility] this [facility]* Diagnosis Gastroparesis due to DM (HCC) (HCC)- Primary Type II or unspecified type diabetes mellitus with neurological manifestations, not stated as uncontrolled documented in this encounter [facility]* Diagnosis Gastroparesis- Primary documented in this encounter [facility] note* Diagnosis Gastroparesis- Primary Type 2 diabetes mellitus without complication, without long-term current use of insulin (HCC) documented in this encounter [facility]* Diagnosis Preop examination- Primary Preoperative examination, unspecified Neck pain Cervicalgia Ascending aorta dilation (HCC) Thoracic aortic ectasia Gastroesophageal reflux disease, unspecified whether esophagitis present Gastroparesis due to DM (HCC) ([facility]) Type II or unspecified type diabetes mellitus [...] Posttraumatic stress disorder documented in this [facility]* Diagnosis Gastroparesis due to DM (HCC) ([facility])- Primary Type II or unspecified type diabetes mellitus with neurological manifestations, not stated as uncontrolled documented [facility] this [facility]* Diagnosis Pre-op evaluation- Primary Preoperative examination, unspecified Biliary colic Calculus of gallbladder without mention of cholecystitis or obstruction Hypercoagulable state (HCC) Primary hypercoagulable state Anticoagulated Long-term (current) use of anticoagulants Hyperlipidemia, unspecified hyperlipidemia type Coronary artery disease of [place] artery of [place] heart with stable angina pectoris (HCC) Type [...] vascular disease, unspecified Coronary artery disease of [place] artery of [place] heart with stable angina pectoris (HCC) SOB (shortness of breath) Shortness of breath Gastroesophageal reflux disease without esophagitis Esophageal reflux Type 2 diabetes mellitus without complication, without long-term current use of insulin ([facility]) Personal history of DVT (deep vein thrombosis) Personal history of venous thrombosis and embolism Hypercoagulable state (HCC) Primary hypercoagulable state History of COVID-19 Nausea- Primary Nausea alone Gastroparesis due to DM ([facility]) (HCC) Type II or unspecified type diabetes mellitus with neurological manifestations, not stated as uncontrolled [facility]* Diagnosis Onset Date Resolution Status Admit Date Cervical spondylosis with radiculopathy acuteNovember 2023 10:49amChronic painacuteNovember 2023 10:49amPain of cervical spineacuteNovember 2023 10:49am [facility] Work Phone: Evaluation note* Diagnosis FERNY (generalized anxiety disorder) Generalized anxiety disorder [facility]* Diagnosis Type 2 diabetes mellitus without complication, without long-term current use of insulin ([facility])- Primary FERNY (generalized anxiety disorder) Generalized anxiety disorder Acute non-recurrent maxillary sinusitis Hereditary coagulation factor deficiency ([facility]) Other and unspecified coagulation defects SVT (supraventricular tachycardia) ([facility]) Other specified cardiac dysrhythmias Gastroparesis due to DM ([facility]) Emotional instability ([facility]) Explosive personality disorder 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rder ([facility]) Type 2 diabetes mellitus with hyperglycemia, without long-term current use of insulin ([facility]) Aneurysm of ascending aorta without rupture ([facility]) Seizure disorder ([facility]) Unspecified epilepsy without mention of intractable epilepsy Hypercoagulable state ([facility]) Primary hypercoagulable state BMI 40.0-44.9, adult ([facility]) documented in this encounter [facility]* Diagnosis Pre-op evaluation- Primary Preoperative examination, unspecified Biliary colic Calculus of gallbladder without mention of cholecystitis or obstruction Hypercoagulable state ([facility]) Primary hypercoagulable state Anticoagulated Long-term (current) use of anticoagulants Hyperlipidemia, unspecified hyperlipidemia type Coronary artery disease of [place] artery of [place] heart with stable angina pectoris ([facility]) Type 2 diabetes mellitus without [...] vascular disease, unspecified Coronary artery disease of [place] artery of [place] heart with stable angina pectoris (HCC) SOB [...] Primary Nausea alone [facility]* Diagnosis Pre-op evaluation- Primary Preoperative examination, unspecified Biliary colic Calculus of gallbladder without mention of cholecystitis or obstruction Hypercoagulable state (HCC) Primary hypercoagulable state Anticoagulated Long-term (current) use of anticoagulants Hyperlipidemia, unspecified hyperlipidemia type Coronary artery disease of [place] artery of [place] heart with stable angina pectoris Type 2 [...] vascular disease, unspecified Coronary artery disease of [place] artery of [place] heart with stable angina pectoris SOB (shortness of breath) Shortness of breath Gastroesophageal reflux disease without esophagitis Esophageal reflux Type 2 diabetes mellitus without complication, without long-term current use of insulin ([facility]) Personal history of DVT (deep vein thrombosis) Personal history of venous thrombosis and embolism Hypercoagulable state (HCC) Primary hypercoagulable state History of COVID-19 Hypercoagulable state (HCC)- Primary Primary hypercoagulable state documented in this encounter [facility]* Diagnosis Pre-op evaluation- Primary Preoperative examination, unspecified Biliary colic Calculus of gallbladder without mention of cholecystitis or obstruction Hypercoagulable state (HCC) Primary hypercoagulable state Anticoagulated Long-term (current) use of anticoagulants Hyperlipidemia, unspecified hyperlipidemia type Coronary artery disease of [place] artery of [place] heart with stable angina pectoris Type 2 diabetes mellitus without complication, without long-term current use of insulin ([facility]) Gastroesophageal reflux disease without esophagitis Esophageal reflux [...] without mention of cholecystitis or obstruction Seizures ([facility]) Other convulsions Ascending aorta dilation Thoracic aortic ectasia PVD (peripheral vascular disease) Peripheral vascular disease, unspecified Coronary artery disease of [place] artery of [place] heart with stable angina pectoris SOB (shortness of breath) Shortness of breath Gastroesophageal reflux disease without esophagitis Esophageal reflux Type 2 diabetes mellitus without complication, without long-term current use of insulin ([facility]) Personal history of DVT (deep vein thrombosis) Personal history of venous thrombosis and embolism Hypercoagulable state (HCC) Primary hypercoagulable state History of COVID-19 Nausea Nausea alone [facility] Diagnosis Burning with urination- Primary Dysuria Dysuria Proteinuria, unspecified type Type 2 diabetes mellitus without complication, without long-term current use of insulin ([facility]) [facility]* Diagnosis Type 2 diabetes mellitus with hyperglycemia, without long-term current use of insulin ([facility])- Primary Cyst of right kidney Unspecified congenital cystic kidney disease Mixed hyperlipidemia BMI 40.0-44.9, adult ([facility]) Glucosuria Glycosuria [facility] Diagnosis Mixed hyperlipidemia [facility] Diagnosis Type 2 diabetes mellitus with hyperglycemia, without long-term current use of insulin ([facility])- Primary FERNY (generalized anxiety disorder) Generalized anxiety disorder Vitamin B 12 deficiency Other B-complex deficiencies Vitamin D insufficiency Low HDL (under 40) Mixed hyperlipidemia Iron deficiency anemia, unspecified iron deficiency anemia type Ascending aortic aneurysm, unspecified whether ruptured Multiple thyroid nodules Nontoxic multinodular goiter Osteoarthritis of spine with radiculopathy, cervical region Seizure disorder ([facility]) Unspecified epilepsy without mention of intractable epilepsy Neuropathy Mononeuritis of unspecified site SVT (supraventricular tachycardia) Other specified cardiac dysrhythmias Hypercoagulable state Primary hypercoagulable state Gastroparesis due to DM ([facility]) Factor V Leiden Primary hypercoagulable state Vascular disease Unspecified circulatory system disorder Viral URI with cough Mild intermittent reactive airway disease without complication Screening mammogram for breast cancer Encounter for screening for osteoporosis documented in this encounter [facility]* Diagnosis Viral URI with cough- Primary documented in this encounter [facility]* Diagnosis Ascending aortic aneurysm, unspecified whether ruptured- Primary [facility] Narrative - Reported* Type Description Date Medical History Susan 5 Medical Historytype II diabetesMedical HistoryepilepsySurgical Historyblod clot left [id number] Historyblood clot left leg/jugular veinSurgical Historyhip displasiaSurgical HistoryProcedure:filter belly [id number] History HYSTERECTOMYSurgical HistoryProcedure: two stents in left [id number] HistoryProcedure: Wpzhtyowlboj7210Xsfbfowu HistoryProcedure: venal bypass right to left [id number] HistoryProceudre: rotator cuff left sfpxdtkr8642Ogshffwq HistoryCHOLECYSTECTOMY 2020Hospitalization HistorySee above [email or web address] Other History general Narrative - Reported* Type Description Date Medical History [facility] 5 Medical Historytype II diabetesMedical HistoryepilepsyMedical HistoryIBSMedical HistoryGERDMedical HistoryhyperlipidemiaMedical HistoryHTNSurgical Historyblod clot left [id number] Historyblood clot left leg/jugular veinSurgical Historyhip displasiaSurgical HistoryProcedure:filter belly [id number] HistoryHYSTERECTOMYSurgical HistoryProcedure: two stents in left [id number] Surgical HistoryProcedure: Cybtzfwjyjji1889Uogqkzyc HistoryProcedure: venal bypass right to left [id number] HistoryProceudre: rotator cuff left evjirtxk2407Rmitmluk HistoryCHOLECYSTECTOMY 2020Hospitalization HistorySee above [email or web address] Other Hospital course Narrative No data available for this section [facility] No data available for this section [facility] Discharge instructions Additional Instructions Continue your medications at home as prescribed Elevate Please follow-up with your primary care doctor regarding the pump that you posted received. Please also follow-up with your vascular surgeon Take Alsen as needed for severe pain You cannot work or drive when taking [facility] Work Phone: InstructionsNot on filedocumented in this encounter [facility]ructionsNot on filedocumented in this encounter [facility]ructionsNot on filedocumented in this encounter [facility] SystemInstructionsNot on filedocumented in this encounter [facility] SystemInstructionsNot on filedocumented in this encounter [facility] SystemInstructionsNot on filedocumented in this encounter [facility] SystemInstructionsNot on filedocumented in this encounter [facility] SystemProgress note No data available for this section [facility] CenterReason for referral (narrative)* Outpatient Procedure (Routine) - AuthorizedSpecialtyDiagnoses / ProceduresReferred By ContactReferred To [facility] Diagnoses Gastroparesis due to DM (HCC) (HCC) Procedures EGD - THERAPEUTIC, EUS, OR TUBE INTERVENTIONS ESOPHAGOGASTRODUODENOSCOPY TRANSORAL DIAGNOSTIC STOMACH SURGERY PROCEDURE UNLISTED Martine Bowling MD [facility] [address] [place] [address] [facility] [address] [id number] Referral IDStatusReasonStmill spring DateExpiration DateVisits RequestedVisits [id number] Auto-Generated Referral [facility] for referral (narrative)* Outpatient Procedure (Routine) - ClosedSpecialtyDiagnoses / ProceduresReferred By ContactReferred To Contact [facility] Diagnoses Gastroparesis due to DM (HCC) (HCC) Procedures EGD - THERAPEUTIC, EUS, OR TUBE INTERVENTIONS ESOPHAGOGASTRODUODENOSCOPY TRANSORAL DIAGNOSTIC STOMACH SURGERY PROCEDURE UNLISTED Martine Bowling MD [facility] [address] [place] [id number] [facility] [place] [address] Ref[facility] DateExpiration DateVisits RequestedVisits [id number] Patient Cleared - Admin/Head Bookkeeper/Director advise to proceed or did not respond [facility] for referral (narrative)* Diagnostic Procedure Only (Routine) - New RequestSpecialtyDiagnoses / ProceduresReferred By Contact Referred To ContactMOLECULAR & FUNCTIONAL IMAGING Diagnoses Nausea Procedures NM GASTRIC EMPTYING SOLID GASTRIC EMPTYING STUDY Martine Bowling MD [facility] [address] [place] [address] Molecular & Functional Imaging [address] [place] [address] Referral IDStatus[facility] DateExpiration DateVisits RequestedVisits [id number] Request Auto-Generated Referral / [facility] for visit Narrative* Outpatient Procedure (Routine) - Outside PCPSpecialtyDiagnoses / ProceduresReferred By ContactReferred To ContactRadiology / IMAGING Diagnoses Gastroparesis Weight 200 / Patient is Diabetic / ORDER IN SCAN DOCUMENTS / DX: K31.84 / Scheduled w/ Patient Procedures GASTRIC EMPTYING STUDY SOLID Laxmi Gunter MD [address] [facility] [address] [place] [address] [employer] [place] [address] [place] [address] Referral IDStatusReasonStart DateExpiration DateVisits RequestedVisits [id number] PCP Patient Cleared - Admin/Head Bookkeeper/Director advise to proceed or did not respond / [facility] for visit Narrative* Outpatient Procedure (Routine) - ClosedSpecialtyDiagnoses / ProceduresReferred By ContactReferred To Contact [facility] Diagnoses Gastroparesis due to DM (HCC) (HCC) Procedures EGD - THERAPEUTIC, EUS, OR TUBE INTERVENTIONS ESOPHAGOGASTRODUODENOSCOPY TRANSORAL DIAGNOSTIC STOMACH SURGERY PROCEDURE UNLISTED Martine Bowling MD [facility] [address] [place] [address] [facility] [address] [place] [address] Referral IDStatusLorasonSteward DateExpiration DateVisits RequestedVisits [id number] Patient Cleared - Admin/Head Bookkeeper/Director advise to proceed or did not respond / [facility] for visit Narrative* Consult, Test, Treat (Routine) - Pending ReviewSpecialtyDiagnoses / ProceduresReferred By ContactReferred To ContactHematology/Oncology / HEMATOLOGY/ONCOLOGY Diagnoses RODRICK KAPIL-1 Year Follow Up Labs 01/16-Called Spoke With Pt Regarding This Appt Pt Aware Will See Dr Barker Procedures TRANSITION OF CARE Angélica Allred [address] [facility] [place] [address] Phone: tel: Stef Michele MD [address] [place] [address] [place] [address] Phone: tel: fax: Referral IDStatusReasonSteward DateExpiration DateVisits RequestedVisits [id number] Review/ [facility] Narrative* Diagnostic Procedure Only (Routine) - ClosedSpecialtyDiagnoses / ProceduresReferred By ContactReferred To Contact MOLECULAR & FUNCTIONAL IMAGING Diagnoses Nausea Procedures NM GASTRIC EMPTYING SOLID GASTRIC EMPTYING STUDY Martine Bowling MD [address] [place] [address] Phone: tel: fax: Molecular Imaging [address] [place] [address] Phone: tel: Referral IDStatusReasonSteward DateExpiration DateVisits RequestedVisits [id number] Auto-Generated Referral / [facility] Summary Purpose Family History No Family History Records Found Relationship Condition Age at Onset Recorded Date/T vinny Not Specified Diabetes mellitus Unknown Heart diseaseUnknownfatherDiabetes mellitusUnknown Relationship Condition Age at Onset Recorded Date/T vinny Not Specified Diabetes mellitus Unknown Heart diseaseUnknownfatherDiabetes mellitusUnknownfamily memberMalignant neoplasmUnknownbrotherHypertensionUnknowngrandparentMalignant neoplasmUnknown Relationship Condition Age at Onset Recorded Date/T vinny Not Specified Diabetes mellitus Unknown Heart diseaseUnknownfatherDiabetes mellitusUnknownHypertensionUnknownfamily memberMalignant neoplasmUnknownbrotherHypertensionUnknowngrandparentMalignant neoplasmUnknown Relationship Condition Age at Onset Recorded Date/T vinny mother Diabetes mellitus Unknown Heart diseaseUnknownfatherDiabetes mellitusUnknownHypertensionUnknownaunt Malignant neoplasmUnknownbrotherHypertensionUnknowngrandparentMalignant neoplasm Unknown Advance Directives No Advanced Directives Records FoundDocuments on File TypeDate RecordedPatient RepresentativeExplanationAdvance Directive(s)02/17/2020 8:22 AMAdvance Directive(s)02/06/2020 8:30 AM Advance Directive Response Recorded Date/ Time Advance Directives No December 11, 2016 12:20pm Advance Directive Response Recorded Date/ Time Advance Directives No December 11, 2016 11:20am Procedure Findings Note HNO ID: [id number] Author: Skip Quiroga Service: ? Author Type: Nurse [employer] Worker Type: Anesthesia Procedure Notes Filed: 03/16/2020 8:30 [...] (more content not included)... Note HNO ID: [id number] Author: Skip Quiroga Service: ? Author Type: Nurse [employer] Worker Type: Anesthesia Procedure Notes Filed: 03/16/2020 8:31 AM Note Text: ANESTHESIOLOGY PROCEDURE NOTE PIV General Information Procedure Start Time/Medication Administration: 03/16/2020 7:45 AM Procedure End Time: 03/16/2020 7:45 AM Staffing LOCKSMITH: Laura Quiroga Preparation Sterility Preparation: hand hygiene performed prior to procedure, surgical cap used, mask used, skin prep agent completely dried prior to procedure Site Prep: Chloraprep Procedure Details Indication: need for IV access Needle Size/Type: 20 gauge angiocath Orientation: Right Location: Hand SIGNATURE: Laura Quiroga APRN.CRNA PATIENT NAME: Naila Beltran DATE: March 16, 2020 TIME: 8:31 AM CSN: [id number] Note HNO ID: [id number] Author: Skip Quiroga Service: ? Author Type: Nurse [employer] Worker Type: Anesthesia Procedure Notes Filed: 03/16/2020 8:33 AM Note Text: ANESTHESIOLOGY PROCEDURE NOTE Gastric Tube General Information Procedure Start Time/Medication Administration: 03/16/2020 7:50 AM Procedure End Time: 03/16/2020 7:50 AM Patient location during procedure: OR Consent Obtained: Yes Patient identity confirmed: arm band Indication: gastric decompression Staffing LOCKSMITH: Laura Quiroga Procedure Details Type: Orogastric tube Size: 18 Fr cm Distance Advanced: 50 cm Initial Auscultation Appears Confirmatory: Yes Successful Placement: yes Post-Procedure Details SIGNATURE: Laura Quiroga APRN.CRNA PATIENT NAME: Naila Beltran DATE: March 16, 2020 TIME: 8:32 AM CSN: [id number] Chief Complaint and Reason for Visit Chief Complaint leg pain i82.429 Chief Complaint leg pain i82.429 left leg pain Chief Complaint chest and stomach pa in Chief Complaint RECHECK CERVICAL ELIAZAR N Reason for Visit Chronic pain Osteoarthritis of cervical spine without myelopathy Pain of cervical spine Chief Complaint RECHECK CERVICAL ELIAZAR N Cervical Pain Cervical PainReason for VisitChronic pain Osteoarthritis of cervical spine without myelopathy [...] emptying study ordered for 4 hour at [facility] Diagnosis 1 Gastroparesis (K31.8 4) Referral Organization [facility] Gastroenterolo gy Referring Provider First Name Imad [...] from [facility] they received the referral but theydid not state if an appt was set up.SpecialtyDiagnoses / ProceduresReferred By ContactReferred To Contact Diagnoses Gastroesophageal reflux disease with esophagitis without hemorrhage Shiva Garcia Jr., DO [address] [place] [address] Referral IDStatusReasonStmill spring DateExpiration DateVisits RequestedVisits [id number] / ProceduresReferred By ContactReferred To ContactCT IMAGING Diagnoses Generalized abdominal pain Procedures CT ABD/PEL W IVCON CT ABD & PELVIS W/CONTRAST Shiva Garcia Jr., DO [address] [place] [address] Ct Imaging Referral IDStatusReasonSteward DateExpiration DateVisits RequestedVisits [id number] Auto-Generated Referral Additional Source Comments INFORMATION SOURCE (unrecogn ized section and content) DATE CREATED AUTHOR 03/21/2020 [facility] DATE CREATED AUTHOR AUTHOR'S ORGANIZ ATION 09/24/2020 [facility] DATE CREATED AUTHOR AUTHOR'S ORGANIZ ATION 12/23/2021 [facility] DATE CREATED AUTHOR AUTHOR'S ORGANIZ ATION 08/04/2023 [facility] DATE CREATED AUTHOR AUTHOR'S ORGANIZ ATION 08/24/2023 [facility] DATE CREATED AUTHOR AUTHOR'S ORGANIZ ATION 12/21/2023 [facility] DATE CREATED AUTHOR AUTHOR'S ORGANIZ ATION 06/11/2024 [facility] DATE CREATED AUTHOR AUTHOR'S ORGANIZ ATION 06/25/2024 [facility] DATE CREATED AUTHOR AUTHOR'S ORGANIZ ATION 07/03/2024 [facility] DATE CREATED AUTHOR AUTHOR'S ORGANIZ ATION 08/31/2024 [facility] DATE CREATED AUTHOR AUTHOR'S ORGANIZ ATION 11/30/2024 [facility] DATE CREATED AUTHOR AUTHOR'S ORGANIZ ATION 12/23/2024 [facility] DATE CREATED AUTHOR AUTHOR'S ORGANIZ ATION 01/07/2025 [facility] Source Comments (unrecognize d section and content) In the event this informatio n is protected by the Federal Confidentiality of Alcohol and Drug Abuse Patient Records regulations: The Federal rules restrict any use of the information to criminally investigate or prosecute any alcohol or drug abuse patient.[facility] DaytonIn the event this information is protected by the Federal Confidentiality of Alcohol and Drug Abuse Patient Records regulations: The Federal rules restrict any use of the information to criminally investigate or prosecute any alcohol or drug abuse patient.[facility] DaytonIn the event this information is protected by the Federal Confidentiality of Alcohol and Drug Abuse Patient Records regulations: The Federal rules restrict any use of the information to criminally investigate or prosecute any alcohol or drug abuse patient.[facility] DaytonIn the event this information is protected by the Federal Confidentiality of Alcohol and Drug Abuse Patient Records regulations: The Federal rules restrict any use of the information to criminally investigate or prosecute any alcohol or drug abuse patient.[facility] DaytonIn the event this information is protected by the Federal Confidentiality of Alcohol and Drug Abuse Patient Records regulations: The Federal rules restrict any use of the information to criminally investigate or prosecute any alcohol or drug abuse patient.[facility] DaytonIn the event this information is protected by the Federal Confidentiality of Alcohol and Drug Abuse Patient Records regulations: The Federal rules restrict any use of the information to criminally investigate or prosecute any alcohol or drug abuse patient.[facility] DaytonIn the event this information is protected by the Federal Confidentiality of Alcohol and Drug Abuse Patient Records regulations: The Federal rules restrict any use of the information to criminally investigate or prosecute any alcohol or drug abuse patient.[facility] DaytonIn the event this information is protected by the Federal Confidentiality of Alcohol and Drug Abuse Patient Records regulations: The Federal rules restrict any use of the information to criminally investigate or prosecute any alcohol or drug abuse patient.[facility] DaytonIn the event this information is protected by the Federal Confidentiality of Alcohol and Drug Abuse Patient Records regulations: The Federal rules restrict any use of the information to criminally investigate or prosecute any alcohol or drug abuse patient.[facility] DaytonIn the event this information is protected by the Federal Confidentiality of Alcohol and Drug Abuse Patient Records regulations: The Federal rules restrict any use of the information to criminally investigate or prosecute any alcohol or drug abuse patient.[facility] DaytonIn the event this information is protected by the Federal Confidentiality of Alcohol and Drug Abuse Patient Records regulations: The Federal rules restrict any use of the information to criminally investigate or prosecute any alcohol or drug abuse patient.[facility] DaytonIn the event this information is protected by the Federal Confidentiality of Alcohol and Drug Abuse Patient Records regulations: The Federal rules restrict any use of the information to criminally investigate or prosecute any alcohol or drug abuse patient.[facility] DaytonIn the event this information is protected by the Federal Confidentiality of Alcohol and Drug Abuse Patient Records regulations: The Federal rules restrict any use of the information to criminally investigate or prosecute any alcohol or drug abuse patient.[facility] DaytonIn the event this information is protected by the Federal Confidentiality of Alcohol and Drug Abuse Patient Records regulations: The Federal rules restrict any use of the information to criminally investigate or prosecute any alcohol or drug abuse patient.[facility] DaytonIn the event this information is protected by the Federal Confidentiality of Alcohol and Drug Abuse Patient Records regulations: The Federal rules restrict any use of the information to criminally investigate or prosecute any alcohol or drug abuse patient.[facility] DaytonIn the event this information is protected by the Federal Confidentiality of Alcohol and Drug Abuse Patient Records regulations: The Federal rules restrict any use of the information to criminally investigate or prosecute any alcohol or drug abuse patient.[facility] DaytonIn the event this information is protected by the Federal Confidentiality of Alcohol and Drug Abuse Patient Records regulations: The Federal rules restrict any use of the information to criminally investigate or prosecute any alcohol or drug abuse patient.[facility] DaytonIn the event this information is protected by the Federal Confidentiality of Alcohol and Drug Abuse Patient Records regulations: The Federal rules restrict any use of the information to criminally investigate or prosecute any alcohol or drug abuse patient.[facility] DaytonIn the event this information is protected by the Federal Confidentiality of Alcohol and Drug Abuse Patient Records regulations: The Federal rules restrict any use of the information to criminally investigate or prosecute any alcohol or drug abuse patient.[facility] DaytonIn the event this information is protected by the Federal Confidentiality of Alcohol and Drug Abuse Patient Records regulations: The Federal rules restrict any use of the information to criminally investigate or prosecute any alcohol or drug abuse patient.[facility] DaytonIn the event this information is protected by the Federal Confidentiality of Alcohol and Drug Abuse Patient Records regulations: The Federal rules restrict any use of the information to criminally investigate or prosecute any alcohol or drug abuse patient.[facility] DaytonIn the event this information is protected by the Federal Confidentiality of Alcohol and Drug Abuse Patient Records regulations: The Federal rules restrict any use of the information to criminally investigate or prosecute any alcohol or drug abuse patient.[facility] DaytonIn the event this information is protected by the Federal Confidentiality of Alcohol and Drug Abuse Patient Records regulations: The Federal rules restrict any use of the information to criminally investigate or prosecute any alcohol or drug abuse patient.[facility] DaytonIn the event this information is protected by the Federal Confidentiality of Alcohol and Drug Abuse Patient Records regulations: The Federal rules restrict any use of the information to criminally investigate or prosecute any alcohol or drug abuse patient.[facility] DaytonIn the event this information is protected by the Federal Confidentiality of Alcohol and Drug Abuse Patient Records regulations: The Federal rules restrict any use of the information to criminally investigate or prosecute any alcohol or drug abuse patient.[facility] DaytonIn the event this information is protected by the Federal Confidentiality of Alcohol and Drug Abuse Patient Records regulations: The Federal rules restrict any use of the information to criminally investigate or prosecute any alcohol or drug abuse patient.[facility] DaytonIn the event this information is protected by the Federal Confidentiality of Alcohol and Drug Abuse Patient Records regulations: The Federal rules restrict any use of the information to criminally investigate or prosecute any alcohol or drug abuse patient.[facility] DaytonIn the event this information is protected by the Federal Confidentiality of Alcohol and Drug Abuse Patient Records regulations: The Federal rules restrict any use of the information to criminally investigate or prosecute any alcohol or drug abuse patient.[facility] Reason for Visit (unrecogniz ed section and content) ReasonCommentshypercoagulable stateReasonCommentsIrritable Bowel SyndromeReason CommentsHypercoagulable state1 year follow upReasonCommentsRefill RequestReason CommentsRadiology NMAppointment reminder.ReasonCommentsCare Coordination Gastroparesis clinic: new patient call; chart reviewReasonCommentsNew Patient EvaluationNew patient eval.C/o abdominal pain with nauseaReasonCommentsNewly DiagnosedGp consultReasonCommentselectrogastrogramEGG-500 cc water intakeReason CommentsPre-Op VisitReasonCommentsEGG RESULTSReasonCommentsPreparations For SurgeryReasonCommentsCare Coordinator - Otherpreprocedue callReasonOnset Date CommentsRefill Lylvvuh83/14/2024ReasonCommentsGastroparesisReasonComments Radiology NMReasonCommentsMed RefillReasonCommentsFollow-up3 month f/u, mammogram scheduled, sick ongoing a month with sinusReasonOnset DateCommentsMed Urxwzk9204/22/2024ReasonCommentsOrdersReasonOnset DateCommentsMultiple Needs 07/01/2024ReasonOnset DateCommentsMed Mkfrjf5906/27/2024ReasonOnset DateComments Appointment due07/26/2024ReasonCommentsBack PainRight lower back painReason CommentsFollow-upMagruder US and labs compReasonCommentsFollow-upPatient here for follow up thinks she has sinus infection, she states her symptoms started 4 days ago. She states she has a cough, headache, sinus congestion. She had an A1c done from a nurse at [facility] 12/13/24 her result was 7.4%. Care Teams (unrecognized sec tion and content) Team MemberRelationshipSpecialtyStart DateEnd Date Cece Hannon [address] [place] [address] PCP - GeneralInternal Qqrwfunj21/10/20 Christy Moreland [address] [place] [address] Wtqaznhhdc53/10/20 Feng Jimenez DO Internal Chcpllze21/10/20 Team Status: Inactive Member Role Status Dates Cece Hannon PA-C Primary Care Provider Active Olamide Colin ProviderActive Team Status: Active Member Role Status Dates Cece Hannon PA-C Primary Care Provider Active Team Status: Inactive Member Role Status Dates Cece Hannon PA-C Primary Care Provider Active Denver Ruth ProviderActiveTeam MemberRelationshipSpecialty Start DateEnd Date Cece Hannon [address] [place] [address] PCP - GeneralInternal Kjjganhk52/10/20 Christy Moreland [address] [place] [address] Hyglvpkikm79/10/20 Feng Jimenez DO [address] [place] [address] Internal Yjqzexuw01/10/20Team MemberRelationshipSpecialtyStart DateEnd Date Cece Hannon [address] [place] [address] PCP - GeneralInternal Pwnfqyny20/10/20 Christy Moreland [address] [place] [address] Pntloorqps31/10/20 Feng Jimenez DO [address] [place] [address] Internal Pmrpatke72/10/20Team MemberRelationshipSpecialtyStart DateEnd Date Cece Hannon [address] [place] [address] PCP - GeneralInternal Gcrphvzg22/10/20 Christy Moreland [address] [place] [address] Eufdgmwzqa84/10/20 Feng Jimenez DO [address] [place] [address] Internal Peuoqusi83/10/20 Team Status: Inactive Member Role Status Dates Cece Hannon PA-C Primary Care Provider Active Dennis Clark MDEmergency ProviderActiveTeam MemberRelationshipSpecialtyStart DateEnd Date Cece Hannon PA-C [address] [place] [address] PCP - GeneralInternal Vuyfatyh13/10/20 Christy Moreland MD [address] [place] [address] Jxxrkvcrps50/10/20 Feng Jimenez DO [address] [place] [address] Internal Svvrfwko89/10/20 Laxmi Gunter MD [address] [place] [address] VeayrbwoePdopyqeiblcqdnxl89/9/23Te MemberRelationshipSpecialtyStart DateEnd Cece Hannon PA-C [address] [place] [address] PCP - GeneralInternal Jxysueuc42/10/20 Christy Moreland MD [address] [place] [address] Ufareamrfb93/10/20 Feng Jimenez DO [address] [place] [address] Internal Cxrtrjqc90/10/20 Laxmi Gunter MD [address] [place] [address] DvrndvhknRrfnkxanouwpilhr78/9/23Te MemberRelationshipSpecialtyStart DateEnd Cece Hannon PA-C [address] [place] [address] PCP - GeneralInternal Sjpqkzhn33/10/20 Christy Moreland MD [address] [place] [address] Ycptttfkib40/10/20 Feng Jimenez DO [address] [place] [address] Internal Rgpfocwp65/10/20 Laxmi Gunter MD [address] [place] [address] JjjuatmitQfxmuusoswurgred07/9/23 Team Status: Inactive Member Role Status Dates Cece Hannon PA-C Primary Care Provider Active Start: July 05, 2023 End: July 04omas Felttati , MDAttending ProviderActiveStart: July 05, 2023 End: July 05, 2023 Team Status: Inactive Member Role Status Dates Cece Hannon PA-C Primary Care Provider Active Start: July 25, 2023 End: July 25, 2023Thomas Felttati , MDAttending ProviderActiveStart: July 25, 2023 End: July 25, 2023 Team Status: Active Member Role Status Dates Cece Hannon PA-C Primary Care Provider Active Start: July 25, 2023 Adan Gauritati , MDAttending Provider, Other ProviderActiveStart: July 25, 2023 Team MemberRelationshipSpecialtyStart DateEnd Date Cece Hannon PA-C [address] [place] [address] PCP - GeneralInternal Xfyhrixg03/10/20 Christy Moreland MD [address] [place] [address] Wsmjqdzxqn17/10/20 Feng Jimenez DO [address] [place] [address] Internal Jgeqesqh21/10/20 Laxmi Gunter MD [address] [place] [address] LrsbwrqfeCfmbrmgjjahrablh85/9/23Team MemberRelationshipSpecialtyStart DateEnd Date Cece Hannon PA-C [address] [place] [address] PCP - GeneralInternal Rvjetltj35/10/20 Christy Moreland MD [address] [place] [address] Rsgbpyagct87/10/20 Feng Jimenez DO [address] [facility] [place] [address] Internal Khzyfxvt21/10/20 Laxmi Gunter MD [address] [place] [address] TzenjvbufXwphkgdensvlaixj65/9/23Team MemberRelationshipSpecialtyStart DateEnd Date Cece Hannon PA-C [address] [place] [address] PCP - GeneralInternal Tseoyzjj46/10/20 Christy Moreland MD [address] [facility] [place] [address] Todmqdkcbw55/10/20 Feng Jimenez DO [address] [place] [address] Internal Snuctsam45/10/20 Laxmi Gunter MD [address] [place] [address] BjknpvlirEueuiluegakecckq73/9/23Team MemberRelationshipSpecialtyStart DateEnd Date Cece Hannon PA-C [address] [place] [address] PCP - GeneralInternal Hgvkhuhz13/10/20 Christy Moreland MD [address] [place] [address] Gnhadhtpws73/10/20 Feng Jimenez DO [address] [facility] [place] [address] Internal Utofajkq87/10/20 Laxmi Gunter MD [address] [place] [address] IigjsvavqMtfgfrfasgszlbdb65/9/23Team MemberRelationshipSpecialtyStart DateEnd Date Cece Hannon PA-C [address] [place] [address] PCP - GeneralInternal Ushbndev48/10/20 Christy Moreland MD [address] [facility] [place] [address] Ppskzwawys68/10/20 Feng Jimenez DO [address] [place] [address] Internal Bhqxwmiy00/10/20 Laxmi Gunter MD [address] [place] [address] DlcnxikcdRlgtmgheldecfzjo16/9/23Team MemberRelationshipSpecialtyStart DateEnd Date Cece Hannon PA-C [address] [place] [address] PCP - GeneralInternal Seneqsye12/10/20 Christy Moreland MD [address] [place] [address] Jesdasruoq47/10/20 Feng Jimenez DO [address] [facility] [place] [address] Internal Uipugbnt99/10/20 Laxmi Gunter MD [address] [place] [address] YurwpkxguQqpoaoyrmrdxdzdv10/9/23Te MemberRelationshipSpecialtyStart DateEnd Date Cece Hannon PA-C [address] [place] [address] PCP - GeneralInternal Bmsbbtdd40/10/20 Christy Moreland MD [address] [facility] [place] [address] Dgqjfemgiv31/10/20 Feng Jimenez DO [address] [place] [address] Internal Dfmahtrt81/10/20 Laxmi Gunter MD [address] [place] [address] WxrenydfqAlzswlsuftrmplaa76/9/23Te MemberRelationshipSpecialtyStart DateEnd Date Cece Hannon PA-C [address] [place] [address] PCP - GeneralInternal Mgldifyz06/10/20 Christy Moreland MD [address] [place] [address] Scuekvueya49/10/20 Feng Jimenez DO [address] [facility] [place] [address] Internal Cswxpgzg10/10/20 Laxmi Gunter MD [address] [place] [address] NqoyiyfwlFzvyhhwupnkyafdb53/9/23Team MemberRelationshipSpecialtyStart DateEnd Date Cece Hannon PA-C [address] [place] [address] PCP - GeneralInternal Plygbeuo67/10/20 Chrsity Moreland MD [address] [facility] [place] [address] Wauomsbtpw63/10/20 Feng Jimenez DO [address] [place] [address] Internal Kwbamtzp17/10/20 Laxmi Gunter MD [address] [place] [address] EuvqtcudbRukgnmejrkfevobk78/9/23Team MemberRelationshipSpecialtyStart DateEnd Date Cece Hannon PA-C [address] [place] [address] PCP - GeneralInternal Wopeoszo20/10/20 Christy Moreland MD [address] [place] [address] Dcfysgwzta21/10/20 Feng Jimenez DO [address] [place] [address] Internal Ndqbwtrm34/10/20 Laxmi Gunter MD [address] [place] [address] LswikvzawVxtbpjpcxuvlirjb18/9/23Te MemberRelationshipSpecialtyStart DateEnd Date Cece Hannon PA-C [address] [place] [address] PCP - GeneralInternal Ginirtqn86/10/20 Christy Moreland MD [address] [place] [address] Pfwnvudpvo07/10/20 Feng Jimenez DO [address] [place] [address] Internal Dsblrgws04/10/20 Laxmi Gunter MD [address] [place] [address] AywfoehmrOoznfmvgnqvecgjn14/9/23Te MemberRelationshipSpecialtyStart DateEnd Date Cece Hannon PA-C [address] [place] [address] PCP - GeneralInternal Admckjvm79/10/20 Christy Moreland MD [address] [facility] [place] [address] Zxdyzjaiup58/10/20 Feng Jimenez DO [address] [facility] [place] [address] Internal Sxtxmwdj14/10/20 Laxmi Gunter MD [address] [place] [address] FzufnjmnmQzqozynrufyatsrc71/9/23Team MemberRelationshipSpecialtyStart DateEnd Date Cece Hannon PA-C [facility] [facility] [address] [place] [address] PCP - GeneralInternal Pqmgetdd39/10/20 Christy Moreland MD [address] [facility] [place] [address] Sgtetmbvik09/10/20 Feng Jimenez DO [address] [place] [address] Internal Xcxvbqot94/10/20 Laxmi Gunter MD [address] [place] [address] VblrgqsdhSoffmatfxuhkootj50/9/23 Team Status: Inactive Member Role Status Dates Cece Hannon PA-C Primary Care Provider Active Start: January 15, 2024 End: January 15, 2024Olamide Garcia ProviderActiveStart: January 15, 2024 End: January 15, 2024Team MemberRelationshipSpecialtyStart DateEnd Date Cece Hannon PA-C PCP - GeneralInternal Teenamkc33/10/20 Christy Moreland MD [address] [place] [address] Arisohyrwc40/10/20 Feng Jimenez DO [address] [place] [address] Internal Yuplcntv03/10/20 Laxmi Gunter MD [address] [place] [address] EltxohlxeBhihvvmwvcwylrmb57/9/23Team MemberRelationshipSpecialtyStart DateEnd Date Haider Adamson MD [address] [address] PCP - GeneralInternal Gpfwvlys73/8/22Team MemberRelationshipSpecialtyStart Date [place]ider [place]on MD [address] [address] PCP - GeneralInternal Hwziafvj52/8/22Team MemberRelationshipSpecialtyStart Date End [place]ider [place] [address] [address] PCP - GeneralInternal Vhyqkfoq42/8/22Team MemberRelationshipSpecialtyStart Date End [place]ider Adamson MD [address] [address] PCP - GeneralInternal Zamocnts17/8/22Team MemberRelationshipSpecialtyStart Date End Date Haider Adamson MD [address] [address] PCP - GeneralInternal Ghdhmaxm20/8/22Team MemberRelationshipSpecialtyStart Date End Date Cece Hannon PA-C PCP - GeneralInternal Vqegexti96/10/20 Christy Moreland MD [address] [place] [address] Qbcubquurf43/10/20 Feng Jimenez DO [address] [place] [address] Internal Pbwjonxv03/10/20 Laxmi Gunter MD [address] [place] [address] QbgyrqxasGegzwnoeuovdjdle03/9/23Te MemberRelationshipSpecialtyStart DateEnd Date Cece Hannon PA-C PCP - GeneralInternal Kmydkaan61/10/20 Christy Moreland MD [address] [place] [address] Omsghbiqij12/10/20 Feng Jimenez DO [address] [place] [address] Internal Yddqqusv54/10/20 Laxmi Gunter MD [address] [place] [address] TprvjuhkzHnmntegkxkrvndjm42/9/23Team MemberRelationshipSpecialtyStart DateEnd Date Cece Hannon PA-C PCP - GeneralInternal Tiegwpdf55/10/20 Christy Moreland MD [address] [place] [address] Anmlctvjix53/10/20 Feng Jimenez DO [address] [place] [address] Internal Djlqfuef37/10/20 Laxmi Gunter MD [address] [place] [address] PzzuklccmIpxefbegmatwgzii08/9/23Team MemberRelationshipSpecialtyStart DateEnd Date Haider Adamson MD [address] [address] PCP - GeneralInternal Awqpzokr24/8/22Team MemberRelationshipSpecialtyStart Date End Date Cece Hannon PA-C PCP - GeneralInternal Mclcwfjw98/10/20 Christy Moreland MD [address] [place] [address] Kfbllzzdjy73/10/20 Feng Jimenez DO [address] [place] [address] Internal Xxjejtjf13/10/20 Laxmi Gunter MD [address] [place] [address] JpmfybiduFilmtumirusdxzvd94/9/23Team MemberRelationshipSpecialtyStart DateEnd Date Haider Adamson MD [address] [address] PCP - GeneralInternal Jjnbylyd01/8/22Team MemberRelationshipSpecialtyStart Date End Date Haider Adamson MD [address] [address] PCP - GeneralInternal Tdgnrsbi05/8/22Team MemberRelationshipSpecialtyStart Date End Date Haider Adamson MD [address] [address] PCP - GeneralInternal Epkuycak64/8/22Team MemberRelationshipSpecialtyStart Date End Date Haider Adamson MD [address] [address] PCP - GeneralInternal Dxorhbfb92/8/22Team MemberRelationshipSpecialtyStart Date End Date Haider Adamson MD [address] [address] PCP - GeneralInternal Hjtpilkc72/8/22 Goals (unrecognized section and content) Goals may [...] BE BASED ON THE PRIMARY CLINICAL RECORDS. [facility] [employer] [facility]. provides no warranty or guarantee of the accuracy or completeness of information in this document.
--- NOTE | 2025-02-07 13:59 | CT_ITS ---
[address] [address] Patient Name: ESTELA BELL MRN: [id number] date: 1970 Sex: F Assigned Patient Location: LAB Current Patient Location: LAB Accession/Order Number: [id number] Exam Date: 02/07/2025 14:15 Report Date: 02/07/2025 22:53 At the request of: LAYNE SANTANA APRN Procedure: CT angio abdomen pelvis CTA chest and CTA abdomen and pelvis . CLINICAL DATA: Ascending thoracic aortic aneurysm without rupture. TECHNIQUE: Intravenous contrast-enhanced CT angiography of the chest and CT angiography of the abdomen and pelvis were performed. Axial, sagittal, coronal, and 3D-dimensional reconstructions were created and reviewed. These CT exams were performed using one or more of the following dose reduction techniques: Automated exposure control, adjustment of the mA and/or kV according to patient size, or use of iterative reconstruction technique. COMPARISON: None. FINDINGS: Chest: Mediastinum:Ectatic ascending aorta 4.3 x 4.9. No dissection flap. Arch measures 3.1 cm. Descending aorta at the level of the left main pulmonary artery measures 2.2 x 2.3 cm. Descending aorta at the level of the diaphragmatic hiatus measures 2.0 cm. Left vertebral artery arises off the arch. Heterogeneous thyroid gland with subcentimeter nodularity noted. No central pulmonary emboli. Cardiomegaly. No effusion. No pathologic adenopathy. Lungs:No focal opacity effusion or pneumothorax. Mild patchy groundglass opacities possibly to air trapping or hypoventilatory changes. Soft tissues/Bones: Mild degenerative changes of the thoracic spine. Abdomen and pelvis: Vasculature: Abdominal aortic nonaneurysmal with mild plaque. CARMINA, SMA arteries are patent. Mild plaque both renal arteries. Common, internal and external iliac arteries are patent. Both proximal femoral arteries are patent.. Organs: Cholecystectomy. Fatty infiltration liver. Spleen, adrenals, kidneys, and pancreas unremarkable. GI: [Xdvm-hm-lxplsfxx retained stool. No bowel obstruction. Appendix unremarkable. Otherwise moderate stool rectosigmoid junction noted..[ Pelvis:[Bladder, uterus and adnexal regions unremarkable.] Peritoneum/Retroperitoneum:No free air or fluid. Evidence of a left common iliac vein wall stent noted. There is evidence of a femorofemoral venous bypass graft within the groins. There are tubular structures within the pelvis the left likely venous collaterals. IVC filter noted.[ Abd wall/Bones:No suspicious osseous lesion.[ CT/CT angio chest IMPRESSION: Ectatic ascending aorta up to 4.3 cm in size. Cardiomegaly. Postsurgical changes involving the visualized lower extremity venous system noted. Impression dictated by: Rik Perez M.D. 02/07/2025 10:53 PM Dictation Location: [place] [address] Electronically authenticated by: [id number] Y Date: 02/07/2025 22:53
--- NOTE | 2025-02-07 13:59 | CT_ITS ---
[address] [address] Patient Name: ESTELA BELL MRN: [id number] date: 1970 Sex: F Assigned Patient Location: LAB Current Patient Location: LAB Accession/Order Number: [id number] Exam Date: 02/07/2025 14:15 Report Date: 02/07/2025 22:53 At the request of: LAYNE SANTANA APRN Procedure: CT angio abdomen pelvis CTA chest and CTA abdomen and pelvis . CLINICAL DATA: Ascending thoracic aortic aneurysm without rupture. TECHNIQUE: Intravenous contrast-enhanced CT angiography of the chest and CT angiography of the abdomen and pelvis were performed. Axial, sagittal, coronal, and 3D-dimensional reconstructions were created and reviewed. These CT exams were performed using one or more of the following dose reduction techniques: Automated exposure control, adjustment of the mA and/or kV according to patient size, or use of iterative reconstruction technique. COMPARISON: None. FINDINGS: Chest: Mediastinum:Ectatic ascending aorta 4.3 x 4.9. No dissection flap. Arch measures 3.1 cm. Descending aorta at the level of the left main pulmonary artery measures 2.2 x 2.3 cm. Descending aorta at the level of the diaphragmatic hiatus measures 2.0 cm. Left vertebral artery arises off the arch. Heterogeneous thyroid gland with subcentimeter nodularity noted. No central pulmonary emboli. Cardiomegaly. No effusion. No pathologic adenopathy. Lungs:No focal opacity effusion or pneumothorax. Mild patchy groundglass opacities possibly to air trapping or hypoventilatory changes. Soft tissues/Bones: Mild degenerative changes of the thoracic spine. Abdomen and pelvis: Vasculature: Abdominal aortic nonaneurysmal with mild plaque. CARMINA, SMA arteries are patent. Mild plaque both renal arteries. Common, internal and external iliac arteries are patent. Both proximal femoral arteries are patent.. Organs: Cholecystectomy. Fatty infiltration liver. Spleen, adrenals, kidneys, and pancreas unremarkable. GI: [Xpea-bh-mvusfcho retained stool. No bowel obstruction. Appendix unremarkable. Otherwise moderate stool rectosigmoid junction noted..[ Pelvis:[Bladder, uterus and adnexal regions unremarkable.] Peritoneum/Retroperitoneum:No free air or fluid. Evidence of a left common iliac vein wall stent noted. There is evidence of a femorofemoral venous bypass graft within the groins. There are tubular structures within the pelvis the left likely venous collaterals. IVC filter noted.[ Abd wall/Bones:No suspicious osseous lesion.[ CT/CT angio abdomen pelvis IMPRESSION: Ectatic ascending aorta up to 4.3 cm in size. Cardiomegaly. Postsurgical changes involving the visualized lower extremity venous system noted. Impression dictated by: Rik Perez M.D. 02/07/2025 10:53 PM Dictation Location: [place] [address] Electronically authenticated by: [id number] Y Date: 02/07/2025 22:53
[2025-02-07 14:08] LABS: Estimated GFR (African America >60 (>=60 mL/min/1.73m^2); Estimated GFR (Non-African Ame 52 (>=60 mL/min/1.73m^2)
== END 2025-02-07 13:49 | disposition home or self-care (01) ==
LOC: LAB 13:48
PROVIDERS: Visit Provider Nurse Practitioner Family
DX: I71.21 Aneurysm of the ascending aorta, without rupture (principal); I51.7 Cardiomegaly
CPT/HCPCS: 36415; 71275; 74174; 82565; Q9967